=== PATIENT | male | born 1975 | race Caucasian/White ===

== ENCOUNTER 2017-12-09 11:13 | Inpatient (IN) | payer MEDICAID, OTHER ==
--- NOTE | 2017-12-09 11:31 | ED PDOC ---
HPI: Abdomen Time Seen by Provider: 12/09/17 11:30 Chief Complaint (Provider): abd pain History Per: Patient Additional Complaint(s): 42-year-old male with history of gastritis presents to emergency department with persistent abdominal pain. Patient was started on Protonix 2 weeks ago and states he has been compliant with medications but does not feel any better. He states on Thursday he ate a spicy meal and since then has had exacerbation of gastritis symptoms. Patient has nausea with no vomiting and is tolerating liquids and solids. No fever or chills. Patient states he was discharged from [facility] about 2 weeks ago after being diagnosed with pneumonia. He states he has not followed up with PMD due to lapse of insurance. PMD: Dr. Duque Past Medical History Reviewed: Historical Data, Nursing Documentation, Vital Signs Vital Signs: Last Vital Signs Temp 101 F H 12/09/17 14:49 Pulse 106 H 12/09/17 15:07 Resp 20 12/09/17 15:07 BP 116/83 12/09/17 15:07 Pulse Ox 100 12/09/17 15:41 - Medical History PMH: Asthma, Gastritis - Family History Family History: States: No Known Family Hx - Living Arrangements Living Arrangements: With Family - Social History Current smoker - smoking cessation education provided: No Alcohol: None Drugs: Denies - Home Medications Home Medications: Ambulatory Orders Medication Instructions Recorded Albuterol HFA [Ventolin HFA 90 2 puff IH Q6 PRN 12/09/17 mcg/actuation (8 g)] Budesonide/Formoterol Fumarate 2 puff IH Q12 12/09/17 [Symbicort 160-4.5 Mcg Inhaler] Furosemide [Lasix] 20 mg PO DAILY 12/09/17 Montelukast [Singulair] 10 mg PO HS 12/09/17 Pantoprazole Sodium [Protonix] 40 mg PO DAILY 12/09/17 Tiotropium Barry [Spiriva 2 puff IH DAILY 12/09/17 Respimat] - Allergies Allergies/Adverse Reactions: Allergies Allergy/AdvReac Type Severity Reaction Status Date / Time No Known Allergies Allergy Verified 04/24/16 17:23 Review of Systems ROS Statement: Except As Marked, All Systems Reviewed And Found Negative Constitutional: Negative for: Fever, Chills Cardiovascular: Negative for: Chest Pain, Palpitations Respiratory: Negative for: Cough, Shortness of Breath Gastrointestinal: Positive for: Nausea, Abdominal Pain. Negative for: Vomiting , Diarrhea, Constipation, Melena, Hematochezia, Hematemesis, Rectal Pain Physical Exam - Reviewed Nursing Documentation Reviewed: Yes Vital Signs Reviewed: Yes - Physical Exam Appears: Positive for: Well, Non-toxic, No Acute Distress Skin: Negative for: Rash Eye Exam: Positive for: Normal appearance Cardiovascular/Chest: Positive for: Regular Rate, Rhythm Respiratory: Positive for: Normal Breath Sounds Gastrointestinal/Abdominal: Positive for: Tenderness (RUQ, epigastric). Negative for: Distended, Guarding, Rebound Back: Negative for: L CVA Tenderness, R CVA Tenderness Neurologic/Psych: Positive for: Alert, Oriented - Laboratory Results Result Diagrams: 12/09/17 12:38 12/09/17 12:38 - ECG Interpretation Of ECG: Sinus tachycardia 101 bpm, no acute findings, reviewed by PA and ED attending. O2 Sat by Pulse Oximetry: 100 Pulse Ox Interpretation: Normal - Other Rad CXR X-Ray: Interpreted by Me, Viewed By Me, Read By Radiologist X-Ray Interpretation: multifocal PNA Abd US X-Ray: Read By Radiologist X-Ray Interpretation: see below Medical Decision Making Medical Decision Makin42 year old with abdominal pain Plan: CBC CMP Lipase Abd US CXR IVF GI cocktail - maalox, , viscous lidocaine PO pepcid ODT zofran PO tylenol and motrin for fever Flu swab VBG Chest x-ray shows multifocal pneumonia - 1 g IV Rocephin ordered along with 500 mg IV Zithromax Patient meets sepsis criteria. Liver functions elevated, hepatitis panel was added. US: HISTORY: epigastric pain, RUQ pain COMPARISON: None. TECHNIQUE: Sonographic evaluation of the right upper quadrant of the abdomen. FINDINGS: LIVER: Measures 17 cm in length. There is trace increased echogenicity surrounding portal triads diffusely. This can be seen with minimal degrees of the ascending cholangitis which may not have strong clinical symptoms. . Hepatitis can also simulate this. Top normal variants also a consideration. No mass. No intrahepatic bile duct dilatation. GALLBLADDER: No gallstones are noted. No positive Haque sign elicited. 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 No comet tail artifacts are appreciated. And trace pericholecystic fluid sliver between the liver and gallbladder is noted. No more extensive pericholecystic fluid or ascitic fluid noted. COMMON BILE DUCT: Measures 4.8 mm. No stones. No dilatation. PANCREAS: Unremarkable as visualized. No mass. No ductal dilatation. RIGHT KIDNEY: Measures 10.7 x 6.8 x 5.9 cm in length. Normal echogenicity. No calculus, mass, or hydronephrosis. AORTA: No aneurysmal dilatation. IVC: Unremarkable. OTHER FINDINGS: None. IMPRESSION: No gallstones or or positive Haque sign elicited. . 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 Although nonspecific, the mild hyper echogenicity of the intrahepatic portal triads have a differential as detailed above. Case was discussed with family practice resident who will admit patient to telemetry. Patient is aware of and agrees with admission. Disposition - Clinical Impression Clinical Impression: Pneumonia, Sepsis, Elevated liver enzymes - Patient ED Disposition Is Patient to be Admitted: Yes - Disposition Disposition Time: 15:39 Condition: FAIR - Pt Status Changed To: Hospital Disposition Of: Inpatient - Admit Certification Admit to Inpatient:: After my assessment, the patient will require hospitalization for at least two midnights. This is because of the severity of symptoms shown, intensity of services needed, and/or the medical risk in this patient being treated as an outpatient. - POA Present On Arrival: None Results - Lab Results Lab Results: 12/09/17 12/09/17 12/09/17 15:14 12:38 12:38 WBC 13.3 H RBC 4.41 Hgb 13.2 Hct 40.0 MCV 90.8 MCH 30.0 MCHC 33.0 RDW 17.5 H Plt Count 229 MPV 8.0 Neut % (Auto) 40.6 L Lymph % (Auto) 18.8 L [place] % (Auto) 5.4 Eos % (Auto) 34.2 H Baso % (Auto) 1.0 Neut # (Auto) 5.4 Lymph # (Auto) 2.5 [place] # (Auto) 0.7 Eos # (Auto) 4.6 H Baso # (Auto) 0.1 Neutrophils % (Manual) 38 L Band Neutrophils % 1 Lymphocytes % (Manual) 29 Monocytes % (Manual) 4 Eosinophils % (Manual) 28 H Platelet Estimate Normal Anisocytosis (manual) Slight pO2 38 VBG pH 7.43 VBG pCO2 42 VBG HCO3 26.8 VBG Total CO2 29.2 H VBG O2 Sat (Calc) 75.9 H VBG Base Excess 3.2 H VBG Potassium 4.1 Glucose 77 Lactate 1.7 FiO2 21.0 Sodium 136.0 140 Potassium 4.4 Chloride 102.0 99 Carbon Dioxide 29 Anion Gap 16 BUN 16 Creatinine 1.4 Est GFR ( Amer) > 60 Est GFR (Non-Af Amer) 55 Random Glucose 101 Calcium 8.9 Total Bilirubin 0.8 AST 109 H ALT 148 H Alkaline Phosphatase 574 H Total Protein 7.9 Albumin 3.5 Globulin 4.4 H Albumin/Globulin Ratio 0.8 L Lipase 44 Venous Blood Potassium 4.1
[2017-12-09] MEDS ORDERED: Alum-Mag Hydrox-Simethicone Susp (30 mL) PO STA (12:03)
[2017-12-09] MEDS ORDERED: Sodium Chloride 0.9% 1,000 ML IV STA (12:03)
[2017-12-09] MEDS ORDERED: Atrop/Hyos/Scop/PhenoB Elixir PO STA (12:03)
[2017-12-09] MEDS ORDERED: Alum-Mag Hydrox-Simethicone Susp (30 mL) ONE (12:35)
[2017-12-09 13:21] LABS: BASO # 0.1 K/uL (0.0-0.2); EOS # 4.6 K/uL (0.0-0.7); EOS % 34.2 % (0.0-4.0); HEMOGLOBIN 13.2 g/dL (12.0-18.0); LYMPH # 2.5 K/uL (1.0-4.3); LYMPH % 18.8 % (20.0-40.0); MEAN CELL VOLUME 90.8 fl (80.0-94.0); MONO # 0.7 K/uL (0.0-0.8); MONO % 5.4 % (0.0-10.0); NEUT # 5.4 K/uL (1.8-7.0); NEUT % 40.6 % (50.0-75.0); NRBC % 0.1 % (0.0-0.0); PLATELET COUNT 229 K/uL (130-400); RBC 4.41 Mil/uL (4.40-5.90); RED CELL DISTRIBUTION WIDTH 17.5 % (11.5-14.5); WHITE BLOOD COUNT 13.3 K/uL (4.8-10.8)
[2017-12-09 13:37] LABS: ALB/GLOB RATIO 0.8 (1.0-2.1); ALBUMIN 3.5 g/dL (3.5-5.0); ALT/SGPT 148 U/L (21-72); AST/SGOT 109 U/L (17-59); BLOOD UREA NITROGEN 16 mg/dl (9-20); CALCIUM 8.9 mg/dL (8.4-10.2); GFR AFRICAN-AMERICAN > 60; GFR NON-AFRICAN AMERICAN 55; LIPASE 44 U/L (23-300)
--- NOTE | 2017-12-09 13:52 | RAD ---
HISTORY: COMPARISON: 07/27/2011 TECHNIQUE: Chest PA and lateral FINDINGS: LINES AND TUBES: None. LUNG AND PLEURA: The lungs are well inflated. There is multifocal patchy airspace disease in the right upper lobe, left upper lobe, lingula and both lower lobes. HEART AND MEDIASTINUM: The heart is not enlarged. The hilar and mediastinal contours are within normal limits. SKELETAL STRUCTURES: The bony structures are within normal limits for the patient's age. VISUALIZED UPPER ABDOMEN: Normal. OTHER FINDINGS: None. IMPRESSION: Multifocal pneumonia, worse in the left upper lobe. Follow-up to resolution is advised.
[2017-12-09] MEDS ORDERED: Azithromycin 500 MG in Sodium Chloride 0.9% 250 ML IVPB STA (13:56)
--- NOTE | 2017-12-09 14:36 | US ---
HISTORY: epigastric pain, RUQ pain COMPARISON: None. TECHNIQUE: Sonographic evaluation of the right upper quadrant of the abdomen. FINDINGS: LIVER: Measures 17 cm in length. There is trace increased echogenicity surrounding portal triads diffusely. This can be seen with minimal degrees of the ascending cholangitis which may not have strong clinical symptoms. . Hepatitis can also simulate this. Top normal variants also a consideration. No mass. No intrahepatic bile duct dilatation. GALLBLADDER: No gallstones are noted. No positive Haque sign elicited. 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 No comet tail artifacts are appreciated. And trace pericholecystic fluid sliver between the liver and gallbladder is noted. No more extensive pericholecystic fluid or ascitic fluid noted. COMMON BILE DUCT: Measures 4.8 mm. No stones. No dilatation. PANCREAS: Unremarkable as visualized. No mass. No ductal dilatation. RIGHT KIDNEY: Measures 10.7 x 6.8 x 5.9 cm in length. Normal echogenicity. No calculus, mass, or hydronephrosis. AORTA: No aneurysmal dilatation. IVC: Unremarkable. OTHER FINDINGS: None . IMPRESSION: No gallstones or or positive Haque sign elicited. . 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 Although nonspecific, the mild hyper echogenicity of the intrahepatic portal triads have a differential as detailed above. Clinical follow-up recommended
[2017-12-09] MEDS ORDERED: Albuterol-Ipratrop 3 mg / 0.5 (3 ml) UD ONE (14:42)
[2017-12-09] MEDS ORDERED: Albuterol-Ipratrop 3 mg / 0.5 (3 ml) UD INH STA (14:43)
[2017-12-09] MEDS ORDERED: cefTRIAXone (Rocephin) 1 gm Inj ONE (14:48)
[2017-12-09 15:11] LABS: ANISOCYTOSIS SLIGHT; BANDS 1 % (0-2); EOSINOPHIL 28 % (0-7); LYMPHOCYTE 29 % (20-50); MONOCYTE 4 % (0-10); NEUTROPHIL 38 % (42-75); PLATELET ESTIMATE NORMAL (NORMAL); TOTAL CELLS COUNTED 100
[2017-12-09 15:17] LABS: VENOUS BLOOD GAS BASE EXCESS 3.2 mmol/L (0.0-2.0); VENOUS BLOOD GAS PCO2 42 mmHg (40-60); VENOUS BLOOD GAS PO2 38 mm/Hg (30-55); VENOUS BLOOD PH 7.43 (7.32-7.43)
[2017-12-09] MEDS ORDERED: Sodium Chloride 0.9% 1,000 ML IV SCH (16:15)
[2017-12-09] MEDS ORDERED: Albuterol 0.083% Inhal Sol (2.5 mg/3 mL) UD INH PRN (16:36)
--- NOTE | 2017-12-09 16:42 | CP.PCM.HP ---
History of Present Illness - History of Present Illness History of Present Illness: Joaquin is 42-year-old male with PMH of Asthma and gastritis presents to emergency department with persistent abdominal pain since 4 days ago. He states on Thursday he ate a spicy meal and since then has had exacerbation of gastritis symptoms. Patient has nausea with no vomiting and is tolerating liquids and solids. Patient was started on Protonix 2 weeks ago and states he has been compliant with medications but does not feel any better. Patient states he was discharged from [facility] about 2 weeks ago after being diagnosed with pneumonia. He reports had fever yesterday and mild non productive cough. As pper patient he finished the abx treatment with Moxifloxacin x 10 days. Otherwise he denies Vomiting, Hemoptysis, SOB, Diarrhea, Constipation, Melena, Hematochezia, Hematemesis. No urinary symptoms. He states he has not followed up with PMD due to lapse of insurance. As note patient states that on August/2017 he underwent in a Thermoplasty as Asthma treatment. ED course: VS: T 101, BP 106/73, HR 57, RR 16, sat 100% RA PE: Resp normal breath sounds, CVS: RRR, S1 S2, ABD: RUQ tenderness Labs: CBC wbc 13.3, CMP wnl except AST/ALT 109/148, ALP 574 VBG: lactate 1.7, lipase normal CXR: multifocal pneumonia worse in L lung. ABD US: trace increased echogenicity surrounding portal triads diffusely. This can be seen with minimal degrees of the ascending cholangitis which may not have strong clinical symptoms. No intrahepatic bile duct dilatation. No gallstones. Meds: famotidine 20 PO once, Ceftriaxone 1g IV once, Azithromycin 500mg IV once. NS 0.9% boluses x3 PMD: none PMH: Asthma, Vitiligo PSH: none FMH: denies Meds: Budesonide, albuterol, singulair Moxifl, lasix, Prednisone, ASA (finished) NKDA SH: denies tobacco, illicit drugs. Etoh socially. 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 Present on Admission - Present on Admission Any Indicators Present on Admission: No Review of Systems - Review of Systems All systems: reviewed and no additional remarkable complaints except (as per HPI ) Past Patient History - Past Social History Alcohol: None Drugs: Denies - PULMONARY Hx Asthma: Yes - GASTROINTESTINAL Hx Gastritis: Yes - PSYCHIATRIC Hx Substance Use: No - SURGICAL HISTORY Hx Surgeries: Yes Other/Comment: leg surgery x2 Meds Allergies/Adverse Reactions: Allergies Allergy/AdvReac Type Severity Reaction Status Date / Time No Known Allergies Allergy Verified 04/24/16 17:23 Physical Exam - Constitutional Appears: Well, No Acute Distress - Head Exam Head Exam: NORMAL INSPECTION - Eye Exam Eye Exam: EOMI, PERRL - ENT Exam ENT Exam: Mucous Membranes Moist - Respiratory Exam Respiratory Exam: Wheezes, NORMAL BREATHING PATTERN. absent: Accessory Muscle Use - Cardiovascular Exam Cardiovascular Exam: Tachycardia, REGULAR RHYTHM, +S1, +S2. absent: Systolic Murmur - GI/Abdominal Exam GI & Abdominal Exam: Normal Bowel Sounds, Soft. absent: Distended Additional comments: Mild tender on epigastrium - Extremities Exam Extremities exam: Negative for: calf tenderness - Neurological Exam Neurological exam: CN II-XII Intact, Oriented x3 - Skin Additional comments: vitiligo Results - Vital Signs Recent Vital Signs: Last Vital Signs Temp 101 F H 12/09/17 14:49 Pulse 106 H 12/09/17 15:07 Resp 20 12/09/17 15:07 BP 116/83 12/09/17 15:07 Pulse Ox 100 12/09/17 15:41 - Labs Result Diagrams: 12/09/17 12:38 12/09/17 12:38 Labs: Laboratory Results - last 24 hr 12/09/17 12/09/17 12/09/17 12:38 12:38 15:14 WBC 13.3 H RBC 4.41 Hgb 13.2 Hct 40.0 MCV 90.8 MCH 30.0 MCHC 33.0 RDW 17.5 H Plt Count 229 MPV 8.0 Neut % (Auto) 40.6 L Lymph % (Auto) 18.8 L [place] % (Auto) 5.4 Eos % (Auto) 34.2 H Baso % (Auto) 1.0 Neut # (Auto) 5.4 Lymph # (Auto) 2.5 [place] # (Auto) 0.7 Eos # (Auto) 4.6 H Baso # (Auto) 0.1 Neutrophils % (Manual) 38 L Band Neutrophils % 1 Lymphocytes % (Manual) 29 Monocytes % (Manual) 4 Eosinophils % (Manual) 28 H Platelet Estimate Normal Anisocytosis (manual) Slight pO2 38 VBG pH 7.43 VBG pCO2 42 VBG HCO3 26.8 VBG Total CO2 29.2 H VBG O2 Sat (Calc) 75.9 H VBG Base Excess 3.2 H VBG Potassium 4.1 Glucose 77 Lactate 1.7 FiO2 21.0 Sodium 140 136.0 Potassium 4.4 Chloride 99 102.0 Carbon Dioxide 29 Anion Gap 16 BUN 16 Creatinine 1.4 Est GFR ( Amer) > 60 Est GFR (Non-Af Amer) 55 Random Glucose 101 Calcium 8.9 Total Bilirubin 0.8 AST 109 H ALT 148 H Alkaline Phosphatase 574 H Total Protein 7.9 Albumin 3.5 Globulin 4.4 H Albumin/Globulin Ratio 0.8 L Lipase 44 Venous Blood Potassium 4.1 Assessment & Plan - Assessment and Plan (Free Text) Assessment: 42 yo M patient with PMH of Asthma and gastritis and pneumonia 2 months ago admitted due to Multifocal pneumonia, acute gastritis. Plan: 1- Multifocal Pneumonia: - admit to telemetry - CXR: multifocal pneumonia worse in left lung. - s/p ceftrixone 1 g IV once - s/p azithromyn 500 IV once - Start zosyn 4.5 mg IV Q6H - Tylenol prn for fever - Pulmonology consult kemal Hernandez. - CBC wbc 13.3, CMP wnl except. - VBG wnl, lactate 1.7 - f/u CBC/CMP/Procalcitonin in AM - f/u Mycoplasma IgM, Legionela urine - F/u blood and sputum culture - F/U chest CT. 2- Gastritis - likely secondary previous abx use and diet - lipase normal - regular diet - start protonix 40mg PO 3- Wheezing - PMH of Asthma - neg sob - Duoneb Q4H ruddy - will monitor. 4- Transaminitis - AST/ALT 109/148, ALP 574 - ABD US: trace increased echogenicity surrounding portal triads diffusely. This can be seen with minimal degrees of the ascending cholangitis which may not have strong clinical symptoms. No intrahepatic bile duct dilatation. No gallstones. - Asymptomatic - f/ hepatitis panel - will monitor 5- DVT prophylaxis - SCD
[2017-12-09] MEDS ORDERED: Sodium Chloride 3% for Inhalation 4 ML VIAL.NEB IH PRN (16:43)
--- NOTE | 2017-12-09 18:11 | CT ---
PROCEDURE: CT Chest without contrast HISTORY: Multifocal pneumonia COMPARISON: Plain radiographs performed earlier the same day. TECHNIQUE: Contiguous axial images were obtained through the chest without intravenous contrast enhancement. Sagittal and coronal reconstructions were performed. Radiation dose (DLP): 285.81 mGy-cm. This CT exam was performed using one or more of the following dose reduction techniques: Automated exposure control, adjustment of the mA and/or kV according to patient size, and/or use of iterative reconstruction technique. FINDINGS: LUNGS: There is multifocal airspace disease in both lungs, more confluent in the left upper lobe. There are also scattered parenchymal and subpleural nodules in both lungs. There is mild diffuse bronchial wall thickening. No evidence of bronchiectasis. There are no endobronchial lesions. MEDIASTINUM: There is abnormal soft tissue in the left hilum. No enlarged mediastinal lymph nodes. The aorta is normal in caliber. The heart is normal in size. No pericardial effusion. PLEURA: No pleural fluid. No pneumothorax. BONES: No fracture. No destructive lesion. UPPER ABDOMEN: Grossly unremarkable. OTHER FINDINGS: None. IMPRESSION: Findings are most compatible with multifocal pneumonia, worse in the left upper lobe. Also noted is soft tissue in the left hilum which may represent reactive hilar lymphadenopathy however hilar mass and postobstructive pneumonia cannot be entirely excluded on noncontrast CT examination. Follow-up after medical management is recommended to ensure complete resolution.
[2017-12-09] MEDS: Sodium Chloride 0.9% 1,000 ML IV SCH ×2 (18:33→18:34)
[2017-12-09] MEDS ORDERED: Docusate-Senna 50 mg-8.6 mg Tab PO ONE (22:00)
[2017-12-10] MEDS ORDERED: DiphenhydrAMINE 50 mg/ml Inj IVP ONE (00:43)
[2017-12-10] MEDS: Albuterol 0.083% Inhal Sol (2.5 mg/3 mL) UD INH PRN (01:03)
[2017-12-10] MEDS: Sodium Chloride 0.9% 1,000 ML IV SCH ×5 (01:08→16:35)
[2017-12-10] MEDS: Piperacillin/Tazobact 4.5 GM in Sodium Chloride 0.9% 100 ML IVPB SCH ×4 (04:14→22:02)
[2017-12-10] MEDS: Albuterol-Ipratrop 3 mg / 0.5 (3 ml) UD INH SCH ×5 (07:10→19:45)
[2017-12-10] MEDS: Pantoprazole 40 mg EC Tab PO SCH (09:00)
--- NOTE | 2017-12-10 09:16 | CP.PCM.PN ---
Subjective - Date & Time of Evaluation Date of Evaluation: 12/10/17 Time of Evaluation: 07:10 - Subjective Subjective: Patient seen and examined this morning at bedside, no acute overnight events, he reports feeling better, no abdominal pain at this time. Afebrile since admission. Tolerating PO well. Denies sob, cough, chest pain, palpitations, chills, vomiting. No urinary symptoms, normal BM. Objective - Vital Signs/Intake and Output Vital Signs (last 24 hours): Temp Pulse Resp BP Pulse Ox 98 F 104 H 20 115/73 93 L 12/10/17 08:00 12/10/17 08:00 12/10/17 08:00 12/10/17 08:00 12/10/17 08:00 - Medications Medications: Current Medications Acetaminophen (Tylenol 325mg Tab) 650 mg PO Q6 PRN PRN Reason: Fever >100.4 F Albuterol Sulfate (Albuterol 0.083% Inhal Cassidy (2.5 Mg/3 Ml) Ud) 2.5 mg INH RQ6 PRN PRN Reason: Shortness of Breath Last Admin: 12/10/17 01:03 Dose: 2.5 mg Albuterol/Ipratropium (Duoneb 3 Mg/0.5 Mg (3 Ml) Ud) 3 ml INH RQID RUDDY Last Admin: 12/10/17 07:10 Dose: 3 ml Piperacillin Sod/Tazobactam (Sod 4.5 gm/ Sodium Chloride) 100 mls @ 100 mls/hr IVPB Q6 RUDDY PRN Reason: Protocol Last Admin: 12/10/17 09:01 Dose: 100 mls/hr Sodium Chloride (Sodium Chloride 0.9%) 1,000 mls @ 1,000 mls/hr IV .Q1H [facility] Stop: 12/10/17 17:45 Last Admin: 12/09/17 18:34 Dose: Not Given Sodium Chloride (Sodium Chloride 0.9%) 1,000 mls @ 200 mls/hr IV .Q5H [facility] Stop: 12/10/17 17:46 Last Admin: 12/10/17 06:07 Dose: 200 mls/hr Ketorolac Tromethamine (Toradol) 30 mg IVP Q6 PRN PRN Reason: Pain, moderate (4-7) Last Admin: 04/05/18 05:47 Dose: 30 mg Pantoprazole Sodium (Protonix Ec Tab) 40 mg PO DAILY [facility] Last Admin: 12/10/17 09:00 Dose: 40 mg - Labs Labs: 12/09/17 12:38 12/09/17 12:38 - Constitutional Appears: Well, No Acute Distress - Head Exam Head Exam: NORMAL INSPECTION - Eye Exam Eye Exam: EOMI, PERRL - Respiratory Exam Respiratory Exam: Wheezes, NORMAL BREATHING PATTERN. absent: Accessory Muscle Use, Respiratory Distress - Cardiovascular Exam Cardiovascular Exam: Tachycardia, REGULAR RHYTHM, +S1, +S2. absent: Murmur - GI/Abdominal Exam GI & Abdominal Exam: Soft, Normal Bowel Sounds. absent: Distended, Tenderness - Extremities Exam Extremities Exam: absent: Calf Tenderness - Neurological Exam Neurological Exam: Awake, CN II-XII Intact, Oriented x3 - Skin Skin Exam: Dry, Warm Assessment and Plan - Assessment and Plan (Free Text) Assessment: 42 yo M patient with PMH of Asthma and gastritis and pneumonia 2 months ago admitted due to Multifocal pneumonia, acute gastritis. Plan: 1- Multifocal Pneumonia: - CXR: multifocal pneumonia worse in left lung. - Chest CT: multifocal pneumonia worse in left lung, soft tissue in the left hilum may represent reactive hilar LAD, recommd f/u. - Start zosyn 4.5 mg IV Q6H - Tylenol prn for fever - Pulmonology consult Dr Esposito, placed. - ID consult Dr Swain appreciated - CBC wbc 13.3, CMP wnl - f/u CBC/CMP/Procalcitonin pending - f/u Mycoplasma IgM, Legionela urine pending - F/u blood and sputum culture pending 2- Gastritis - likely secondary recent abx use - regular diet - protonix 40mg PO daily 3- Wheezing - PMH of Asthma - neg sob - Duoneb Q4H ruddy - will monitor. 4- Transaminitis - AST/ALT 109/148, ALP 574 - ABD US: trace increased echogenicity surrounding portal triads diffusely. This can be seen with minimal degrees of the ascending cholangitis which may not have strong clinical symptoms. No intrahepatic bile duct dilatation. No gallstones. - Asymptomatic - f/ hepatitis panel pending - will monitor 5- DVT prophylaxis - SCD
[2017-12-10] MEDS: Lidocaine 5% Patch TD SCH (11:15)
--- NOTE | 2017-12-10 12:14 | CP.PCM.CON ---
History of Present Illness - History of Present Illness History of Present Illness: Infectious Disease Consultation Note- asked to see this patient at the request of family practice team/Dr.Pierre Salas for pneumonia. HPI- Patient is a 42-year-old male with PMH of Asthma and gastritis presented to ED with persistent abdominal pain since 4 days ago. He states on Thursday he ate a spicy meal and since then has had exacerbation of gastritis symptoms. Patient had nausea with no vomiting and is tolerating liquids and solids. Patient was started on Protonix 2 weeks ago and states he has been compliant with medications but does not feel any better. Patient states he was discharged from [facility] about 2 weeks ago after being diagnosed with pneumonia. He reports had fever day before admission and mild non productive cough. As per patient he finished the abx treatment with Moxifloxacin x 10 days. he denies any hemoptysis, denies any night swetas or weight loss. he deoes c/o chest congestion and nasal congestion but states is better than yesterday. he also does c/o chills at times. CXR: multifocal pneumonia worse in L lung. Meds: famotidine 20 PO once, Ceftriaxone 1g IV once, Azithromycin 500mg IV once. NS 0.9% boluses x3 PMD: none PMH: Asthma, PSH: none FMH: denies Meds: Budesonide, albuterol, singulair Moxifl, lasix, Prednisone, ASA (finished) Allergy-NKDA SH: denies tobacco, illicit drugs. Etoh socially. 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 Review of Systems - Review of Systems Review of Systems: ROS- + cough and chest congestion, no sob, + gastritis pain, denies any TEJEDA, + chills , denies any chest pain, denies any nausea or vomiting, states has some gastritis pain, denies any diarrhea recent hospitalization at [place] sick contact- friend's son denies any recent travel Past Patient History - Past Medical History & Family History Past Medical History?: Yes - Past Social History Smoking Status: Never Smoked Drugs: Denies Home Situation {Lives}: With Family - CARDIAC Hx Cardiac Disorders: No - PULMONARY Hx Respiratory Disorders: Yes Hx Asthma: Yes Hx Pneumonia: Yes - NEUROLOGICAL Hx Neurological Disorder: No - HEENT Hx HEENT Problems: No - RENAL Hx Chronic Kidney Disease: No - ENDOCRINE/METABOLIC Hx Endocrine Disorders: No - HEMATOLOGICAL/ONCOLOGICAL Hx Blood Disorders: No - INTEGUMENTARY Hx Dermatological Problems: No - MUSCULOSKELETAL/RHEUMATOLOGICAL Hx Musculoskeletal Disorders: No Hx Falls: No - GASTROINTESTINAL Hx Gastritis: Yes - GENITOURINARY/GYNECOLOGICAL Hx Genitourinary Disorders: No - PSYCHIATRIC Hx Psychophysiologic Disorder: No Hx Substance Use: No - SURGICAL HISTORY Hx Surgeries: Yes Other/Comment: leg surgery x2, right leg abscess removal - ANESTHESIA Hx Anesthesia: Yes Hx Anesthesia Reactions: No Meds Allergies/Adverse Reactions: Allergies Allergy/AdvReac Type Severity Reaction Status Date / Time No Known Allergies Allergy Verified 04/24/16 17:23 - Medications Medications: Current Medications Acetaminophen (Tylenol 325mg Tab) 650 mg PO Q6 PRN PRN Reason: Fever >100.4 F Albuterol Sulfate (Albuterol 0.083% Inhal Cassidy (2.5 Mg/3 Ml) Ud) 2.5 mg INH RQ6 PRN PRN Reason: Shortness of Breath Last Admin: 12/10/17 01:03 Dose: 2.5 mg Albuterol/Ipratropium (Duoneb 3 Mg/0.5 Mg (3 Ml) Ud) 3 ml INH RQID DARIEL Last Admin: 12/10/17 11:19 Dose: 3 ml Piperacillin Sod/Tazobactam (Sod 4.5 gm/ Sodium Chloride) 100 mls @ 100 mls/hr IVPB Q6 DARIEL PRN Reason: Protocol Last Admin: 12/10/17 09:01 Dose: 100 mls/hr Sodium Chloride (Sodium Chloride 0.9%) 1,000 mls @ 1,000 mls/hr IV .Q1H DARIEL Stop: 12/10/17 17:45 Last Admin: 12/10/17 07:45 Dose: Not Given Sodium Chloride (Sodium Chloride 0.9%) 1,000 mls @ 200 mls/hr IV .Q5H DARIEL Stop: 12/10/17 17:46 Last Admin: 12/10/17 11:14 Dose: 200 mls/hr Vancomycin HCl 1 gm/ Sodium (Chloride) 250 mls @ 166.667 mls/hr IVPB Q12H DARIEL PRN Reason: Protocol Ketorolac Tromethamine (Toradol) 30 mg IVP Q6 PRN PRN Reason: Pain, moderate (4-7) Last Admin: 12/10/17 05:47 Dose: 30 mg Lidocaine (Lidoderm) 1 ea TD DAILY [facility] Last Admin: 12/10/17 11:15 Dose: 1 ea Pantoprazole Sodium (Protonix Ec Tab) 40 mg PO DAILY [facility] Last Admin: 12/10/17 09:00 Dose: 40 mg Pantoprazole Sodium (Protonix Ec Tab) 40 mg PO DAILY [facility] Fluticasone/Salmeterol (Advair Diskus 250/50) 1 puff IH Q12 [facility] Physical Exam - Constitutional Appears: No Acute Distress - Head Exam Head Exam: ATRAUMATIC - Eye Exam Eye Exam: EOMI - ENT Exam ENT Exam: Normal Oropharynx - Neck Exam Neck exam: Positive for: Full Rom - Respiratory Exam Respiratory Exam: NORMAL BREATHING PATTERN Additional comments: has scattered coarse breath sounds b/l no wheezing - Cardiovascular Exam Cardiovascular Exam: RRR, +S1, +S2 - GI/Abdominal Exam GI & Abdominal Exam: Normal Bowel Sounds, Soft Additional comments: NT, ND - Extremities Exam Extremities exam: Positive for: normal inspection - Neurological Exam Neurological exam: Alert, Oriented x3 Results - Vital Signs Recent Vital Signs: Last Vital Signs Temp 98 F 12/10/17 09:00 Pulse 104 H 12/10/17 09:00 Resp 20 12/10/17 09:00 BP 115/73 12/10/17 09:00 Pulse Ox 93 L 12/10/17 09:00 - Labs Result Diagrams: 12/09/17 12:38 12/09/17 12:38 Labs: Laboratory Results - last 24 hr 12/09/17 12/09/17 12/09/17 12:38 12:38 15:14 WBC 13.3 H RBC 4.41 Hgb 13.2 Hct 40.0 MCV 90.8 MCH 30.0 MCHC 33.0 RDW 17.5 H Plt Count 229 MPV 8.0 Neut % (Auto) 40.6 L Lymph % (Auto) 18.8 L [place] % (Auto) 5.4 Eos % (Auto) 34.2 H Baso % (Auto) 1.0 Neut # (Auto) 5.4 Lymph # (Auto) 2.5 [place] # (Auto) 0.7 Eos # (Auto) 4.6 H Baso # (Auto) 0.1 Neutrophils % (Manual) 38 L Band Neutrophils % 1 Lymphocytes % (Manual) 29 Monocytes % (Manual) 4 Eosinophils % (Manual) 28 H Platelet Estimate Normal Anisocytosis (manual) Slight pO2 38 VBG pH 7.43 VBG pCO2 42 VBG HCO3 26.8 VBG Total CO2 29.2 H VBG O2 Sat (Calc) 75.9 H VBG Base Excess 3.2 H VBG Potassium 4.1 Glucose 77 Lactate 1.7 FiO2 21.0 Sodium 140 136.0 Potassium 4.4 Chloride 99 102.0 Carbon Dioxide 29 Anion Gap 16 BUN 16 Creatinine 1.4 Est GFR ( Amer) > 60 Est GFR (Non-Af Amer) 55 Random Glucose 101 Calcium 8.9 Total Bilirubin 0.8 AST 109 H ALT 148 H Alkaline Phosphatase 574 H Total Protein 7.9 Albumin 3.5 Globulin 4.4 H Albumin/Globulin Ratio 0.8 L Lipase 44 Venous Blood Potassium 4.1 Influenza Typ A,B (EIA) 12/09/17 15:41 WBC RBC Hgb Hct MCV MCH MCHC RDW Plt Count MPV Neut % (Auto) Lymph % (Auto) [place] % (Auto) Eos % (Auto) Baso % (Auto) Neut # (Auto) Lymph # (Auto) [place] # (Auto) Eos # (Auto) Baso # (Auto) Neutrophils % (Manual) Band Neutrophils % Lymphocytes % (Manual) Monocytes % (Manual) Eosinophils % (Manual) Platelet Estimate Anisocytosis (manual) pO2 VBG pH VBG pCO2 VBG HCO3 VBG Total CO2 VBG O2 Sat (Calc) VBG Base Excess VBG Potassium Glucose Lactate FiO2 Sodium Potassium Chloride Carbon Dioxide Anion Gap BUN Creatinine Est GFR ( Amer) Est GFR (Non-Af Amer) Random Glucose Calcium Total Bilirubin AST ALT Alkaline Phosphatase Total Protein Albumin Globulin Albumin/Globulin Ratio Lipase Venous Blood Potassium Influenza Typ A,B (EIA) Negative for flu a/b Laboratory Results - last 72 hr 12/09/17 12/09/17 12/09/17 12:38 12:38 15:01 WBC 13.3 H RBC 4.41 Hgb 13.2 Hct 40.0 MCV 90.8 MCH 30.0 MCHC 33.0 RDW 17.5 H Plt Count 229 MPV 8.0 Neut % (Auto) 40.6 L Lymph % (Auto) 18.8 L [place] % (Auto) 5.4 Eos % (Auto) 34.2 H Baso % (Auto) 1.0 Neut # (Auto) 5.4 Lymph # (Auto) 2.5 [place] # (Auto) 0.7 Eos # (Auto) 4.6 H Baso # (Auto) 0.1 Neutrophils % (Manual) 38 L Band Neutrophils % 1 Lymphocytes % (Manual) 29 Monocytes % (Manual) 4 Eosinophils % (Manual) 28 H Platelet Estimate Normal Anisocytosis (manual) Slight pO2 VBG pH VBG pCO2 VBG HCO3 VBG Total CO2 VBG O2 Sat (Calc) VBG Base Excess VBG Potassium Glucose Lactate FiO2 Sodium 140 Potassium 4.4 Chloride 99 Carbon Dioxide 29 Anion Gap 16 BUN 16 Creatinine 1.4 Est GFR ( Amer) > 60 Est GFR (Non-Af Amer) 55 Random Glucose 101 Calcium 8.9 Total Bilirubin 0.8 AST 109 H ALT 148 H Alkaline Phosphatase 574 H Total Protein 7.9 Albumin 3.5 Globulin 4.4 H Albumin/Globulin Ratio 0.8 L Lipase 44 Procalcitonin Venous Blood Potassium Hepatitis A IgM Ab Negative Hep Bs Antigen Negative Hep B Core IgM Ab Negative Hepatitis C Antibody Negative Influenza Typ A,B (EIA) 12/09/17 12/09/17 12/09/17 15:14 15:41 22:07 WBC RBC Hgb Hct MCV MCH MCHC RDW Plt Count MPV Neut % (Auto) Lymph % (Auto) [place] % (Auto) Eos % (Auto) Baso % (Auto) Neut # (Auto) Lymph # (Auto) [place] # (Auto) Eos # (Auto) Baso # (Auto) Neutrophils % (Manual) Band Neutrophils % Lymphocytes % (Manual) Monocytes % (Manual) Eosinophils % (Manual) Platelet Estimate Anisocytosis (manual) pO2 38 VBG pH 7.43 VBG pCO2 42 VBG HCO3 26.8 VBG Total CO2 29.2 H VBG O2 Sat (Calc) 75.9 H VBG Base Excess 3.2 H VBG Potassium 4.1 Glucose 77 Lactate 1.7 FiO2 21.0 Sodium 136.0 Potassium Chloride 102.0 Carbon Dioxide Anion Gap BUN Creatinine Est GFR ( Amer) Est GFR (Non-Af Amer) Random Glucose Calcium Total Bilirubin AST ALT Alkaline Phosphatase Total Protein Albumin Globulin Albumin/Globulin Ratio Lipase Procalcitonin 0.40 Venous Blood Potassium 4.1 Hepatitis A IgM Ab Hep Bs Antigen Hep B Core IgM Ab Hepatitis C Antibody Influenza Typ A,B (EIA) Negative for flu a/b Accession No. : [id number] Patient Name / ID : ANTHONY FERNANDEZ / [id number] Exam Date : 12/09/2017 17:15:26 ( Approved ) Study Comment : Sex / Age : M / 42Y Creator : Sonya Leyva MD Dictator : Sonya Leyva MD Deck Supervisor : Licensed Sales Producer : Sonya Leyva MD Approver2 : Report Date : 12/09/2017 18:10:20 My Comment : PROCEDURE: CT Chest without contrast HISTORY: Multifocal pneumonia COMPARISON: Plain radiographs performed earlier the same day. TECHNIQUE: Contiguous axial images were obtained through the chest without intravenous contrast enhancement. Sagittal and coronal reconstructions were performed. Radiation dose (DLP): 285.81 mGy-cm. This CT exam was performed using one or more of the following dose reduction techniques: Automated exposure control, adjustment of the mA and/or kV according to patient size, and/or use of iterative reconstruction technique. FINDINGS: LUNGS: There is multifocal airspace disease in both lungs, more confluent in the left upper lobe. There are also scattered parenchymal and subpleural nodules in both lungs. There is mild diffuse bronchial wall thickening. No evidence of bronchiectasis. There are no endobronchial lesions. MEDIASTINUM: There is abnormal soft tissue in the left hilum. No enlarged mediastinal lymph nodes. The aorta is normal in caliber. The heart is normal in size. No pericardial effusion. PLEURA: No pleural fluid. No pneumothorax. BONES: No fracture. No destructive lesion. UPPER ABDOMEN: Grossly unremarkable. OTHER FINDINGS: None. IMPRESSION: Findings are most compatible with multifocal pneumonia, worse in the left upper lobe. Also noted is soft tissue in the left hilum which may represent reactive hilar lymphadenopathy however hilar mass and postobstructive pneumonia cannot be entirely excluded on noncontrast CT examination. Follow-up after medical management is recommended to ensure complete resolution. Assessment & Plan (1) Pneumonia Status: Acute (2) Elevated liver enzymes Status: Acute - Assessment and Plan (Free Text) Assessment: A/p- 42 year old male admitted with multifocal pneumonia and also found to have elevated liver enzymes. mild leukocytosis but mostly eos perhaps allergic reposnse to a medication he was given recently. fever on admission elevated liver enzymes chest ct report- multifocal pneumonia urine legionella AG- negative plan- agree with IV zosyn and vanco to cover for HAP and nosocomial infections. advise to also add zithromax to cover for atypicals. check mycoplasma serology. hepatitis panel was all negative. check repeat LFTs.could be allergic reaction as a result of recent medication specially in light of elevated eosinophils on diff. may need abd CT for better evaluation. check sputum cx. check blood cx x 2. advised to also use incentive spirometry. All above d/w patient and he verbalizes full understanding of all above and agrees with above plan of care. Thank you for allowing me to take part in the care of this patient.
[2017-12-10 12:41] LABS: HEPATITIS B SURFACE AG Negative (NEGATIVE)
[2017-12-10 12:47] LABS: HEPATITIS A IGM NEGATIVE (NEGATIVE); HEPATITIS B CORE AB NEGATIVE (NEGATIVE)
[2017-12-10 12:58] LABS: HEPATITIS C ANTIBODY NEGATIVE (NEGATIVE)
[2017-12-10] MEDS: Fluticasone-Salmeterol 250-50mcg Diskus IH SCH (22:01)
[2017-12-10] MEDS ORDERED: DiphenhydrAMINE 12.5 mg/5 ml LIQ UD (5 ml) PO ONE (22:15)
--- NOTE | 2017-12-10 22:44 | CP.PCM.CON ---
History of Present Illness - History of Present Illness History of Present Illness: Called to evaluate this patient that presented with sever Abdo pain. Consequently was found to have multifocal PNa. Hx of asthma. Never smoker. NKDA Fam Hx negative. S/ No Pulmonary Sx. VS Stable O2 Sat was 98% on Room Air Head: Neg Adeno Pos Viviana Heart: Ns1s2, RRR, neg m Lungs: Clear to A & P Abdo: s, nt, pos bs Ext: no c,c,e Neuro: Grossly non focal a/p PNA in which films are lagging behind clinical improvement. B. Asthma. Cont supp O2 (Patients O2 sat was fine on room air.) Cont ANGELY prn. Consider adding a ICS/LABA inhaler. Cont ABX. ID Consult. HIV Testing. No need for steroids since patient is not wheezing. Would get serial Peak Flows. PUD and DVT Px. Signing out of case; issues seem to be more of Abdominal since patient states his abdo pain was 9/10. Can be f/u as out patient in the [facility]. Past Patient History - Past Medical History & Family History Past Medical History?: Yes - Past Social History Smoking Status: Never Smoked Drugs: Denies Home Situation {Lives}: With Family - CARDIAC Hx Cardiac Disorders: No - PULMONARY Hx Respiratory Disorders: Yes Hx Asthma: Yes Hx Pneumonia: Yes - NEUROLOGICAL Hx Neurological Disorder: No - HEENT Hx HEENT Problems: No - RENAL Hx Chronic Kidney Disease: No - ENDOCRINE/METABOLIC Hx Endocrine Disorders: No - HEMATOLOGICAL/ONCOLOGICAL Hx Blood Disorders: No - INTEGUMENTARY Hx Dermatological Problems: No - MUSCULOSKELETAL/RHEUMATOLOGICAL Hx Musculoskeletal Disorders: No Hx Falls: No - GASTROINTESTINAL Hx Gastritis: Yes - GENITOURINARY/GYNECOLOGICAL Hx Genitourinary Disorders: No - PSYCHIATRIC Hx Psychophysiologic Disorder: No Hx Substance Use: No - SURGICAL HISTORY Hx Surgeries: Yes Other/Comment: leg surgery x2, right leg abscess removal - ANESTHESIA Hx Anesthesia: Yes Hx Anesthesia Reactions: No Meds Allergies/Adverse Reactions: Allergies Allergy/AdvReac Type Severity Reaction Status Date / Time No Known Allergies Allergy Verified 04/24/16 17:23 - Medications Medications: Current Medications Acetaminophen (Tylenol 325mg Tab) 650 mg PO Q6 PRN PRN Reason: Fever >100.4 F Last Admin: 12/10/17 21:01 Dose: 650 mg Albuterol Sulfate (Albuterol 0.083% Inhal Cassidy (2.5 Mg/3 Ml) Ud) 2.5 mg INH RQ6 PRN PRN Reason: Shortness of Breath Last Admin: 12/10/17 01:03 Dose: 2.5 mg Albuterol/Ipratropium (Duoneb 3 Mg/0.5 Mg (3 Ml) Ud) 3 ml INH RQID DARIEL Last Admin: 12/10/17 19:45 Dose: 3 ml Famotidine (Pepcid) 20 mg IVP ONCE ONE Stop: 12/11/17 22:12 Piperacillin Sod/Tazobactam (Sod 4.5 gm/ Sodium Chloride) 100 mls @ 100 mls/hr IVPB Q6 DARIEL PRN Reason: Protocol Last Admin: 12/10/17 22:02 Dose: 100 mls/hr Vancomycin HCl 1 gm/ Sodium (Chloride) 250 mls @ 166.667 mls/hr IVPB Q12H DARIEL PRN Reason: Protocol Last Admin: 12/10/17 13:17 Dose: 166.667 mls/hr Ketorolac Tromethamine (Toradol) 30 mg IVP Q6 PRN PRN Reason: Pain, moderate (4-7) Last Admin: 12/10/17 21:11 Dose: 30 mg Lidocaine (Lidoderm) 1 ea TD DAILY [facility] Last Admin: 12/10/17 11:15 Dose: 1 ea Pantoprazole Sodium (Protonix Ec Tab) 40 mg PO DAILY [facility] Last Admin: 12/10/17 09:00 Dose: 40 mg Pantoprazole Sodium (Protonix Ec Tab) 40 mg PO DAILY [facility] Fluticasone/Salmeterol (Advair Diskus 250/50) 1 puff IH Q12 [facility] Last Admin: 12/10/17 22:01 Dose: 1 puff Results - Vital Signs Recent Vital Signs: Last Vital Signs Temp 102.8 F H 12/10/17 21:01 Pulse 120 H 12/10/17 18:59 Resp 18 12/10/17 18:59 BP 112/70 12/10/17 18:59 Pulse Ox 94 L 12/10/17 18:59 - Labs Result Diagrams: 12/09/17 12:38 12/09/17 12:38 Labs: Laboratory Results - last 24 hr 12/09/17 12/09/17 12/09/17 10:57 15:01 22:07 Procalcitonin 0.40 Hepatitis A IgM Ab Negative Hep Bs Antigen Negative Hep B Core IgM Ab Negative Hepatitis C Antibody Negative Ur L.pneumophila Ag Negative
[2017-12-11] MEDS: Piperacillin/Tazobact 4.5 GM in Sodium Chloride 0.9% 100 ML IVPB SCH ×4 (04:09→18:05)
[2017-12-11] MEDS ORDERED: Lidocaine 5% Patch TD ONE (05:33)
[2017-12-11 05:54] LABS: BASO # 0.1 K/uL (0.0-0.2); BASO % 0.4 % (0.0-2.0); EOS # 6.3 K/uL (0.0-0.7); HEMOGLOBIN 11.6 g/dL (12.0-18.0); LYMPH # 2.4 K/uL (1.0-4.3); MEAN CELL VOLUME 91.6 fl (80.0-94.0); MEAN CORPUSCULAR HEMOGLOBIN 29.7 pg (27.0-31.0); MEAN CORPUSCULAR HGB CONC 32.4 g/dL (33.0-37.0); MEAN PLATELET VOLUME 8.4 fl (7.2-11.7); MONO # 0.9 K/uL (0.0-0.8); MONO % 5.8 % (0.0-10.0); NEUT # 5.4 K/uL (1.8-7.0); NEUT % 35.8 % (50.0-75.0); PLATELET COUNT 143 K/uL (130-400); RBC 3.91 Mil/uL (4.40-5.90); RED CELL DISTRIBUTION WIDTH 16.9 % (11.5-14.5)
[2017-12-11 06:21] LABS: ALB/GLOB RATIO 0.7 (1.0-2.1); ALBUMIN 2.6 g/dL (3.5-5.0); BILIRUBIN,DIRECT 0.3 mg/ml (0.0-0.4)
[2017-12-11] MEDS: Albuterol-Ipratrop 3 mg / 0.5 (3 ml) UD INH SCH ×4 (07:45→19:17)
--- NOTE | 2017-12-11 08:32 | CP.PCM.PN ---
Addendum entered and electronically signed by Jose Russell MD 12/11/17 15: 32: Abd CT 4/6 : findings compatible with acute pancreatitis. Plan: NPO IV fluids Morphine PRN for Pain CBC/CMP/lipase in the morning. Original Note: <Jose Russell - Last Filed: 12/11/17 14:34> Subjective - Date & Time of Evaluation Date of Evaluation: 12/11/17 Time of Evaluation: 08:32 - Subjective Subjective: Patient seen and examined this morning at bedside, reports feeling frustrated because he continues with abdominal discomfort. Patient was febrile yesterday in the evening and during night, afebrile now. Denies nausea/vomiting. Able to tolerate PO but states low appetite. Patient also report 3 episodes of nb diarrhea during the night. No chest pain, palpitations, edema or headache. Objective - Vital Signs/Intake and Output Vital Signs (last 24 hours): Temp Pulse Resp BP Pulse Ox 97.6 F 92 H 18 117/80 97 12/11/17 06:02 12/11/17 04:53 12/11/17 04:53 12/11/17 04:53 12/11/17 04:53 - Medications Medications: Current Medications Acetaminophen (Tylenol 325mg Tab) 650 mg PO Q6 PRN PRN Reason: Fever >100.4 F Last Admin: 12/10/17 21:01 Dose: 650 mg Acetaminophen (Tylenol 325mg Tab) 650 mg PO Q6 PRN PRN Reason: Pain, Mild (1-3) Albuterol Sulfate (Albuterol 0.083% Inhal Cassidy (2.5 Mg/3 Ml) Ud) 2.5 mg INH RQ6 PRN PRN Reason: Shortness of Breath Last Admin: 12/10/17 01:03 Dose: 2.5 mg Albuterol/Ipratropium (Duoneb 3 Mg/0.5 Mg (3 Ml) Ud) 3 ml INH RQID RUDDY Last Admin: 12/11/17 07:45 Dose: 3 ml Piperacillin Sod/Tazobactam (Sod 4.5 gm/ Sodium Chloride) 100 mls @ 100 mls/hr IVPB Q6 RUDDY PRN Reason: Protocol Last Admin: 12/11/17 04:09 Dose: 100 mls/hr Vancomycin HCl 1 gm/ Sodium (Chloride) 250 mls @ 166.667 mls/hr IVPB Q12H RUDDY PRN Reason: Protocol Last Admin: 12/10/17 22:52 Dose: 166.667 mls/hr Ketorolac Tromethamine (Toradol) 15 mg IVP Q6 PRN PRN Reason: Pain, moderate (4-7) Lidocaine (Lidoderm) 1 ea TD DAILY [facility] Last Admin: 12/10/17 11:15 Dose: 1 ea Pantoprazole Sodium (Protonix Ec Tab) 40 mg PO DAILY [facility] Last Admin: 12/10/17 09:00 Dose: 40 mg Fluticasone/Salmeterol (Advair Diskus 250/50) 1 puff IH Q12 RUDDY Last Admin: 12/10/17 22:01 Dose: 1 puff - Labs Labs: 12/11/17 05:10 12/11/17 05:10 - Constitutional Appears: No Acute Distress - Head Exam Head Exam: NORMAL INSPECTION - Eye Exam Eye Exam: EOMI, PERRL - Respiratory Exam Respiratory Exam: Clear to Ausculation Bilateral, NORMAL BREATHING PATTERN. absent: Wheezes - Cardiovascular Exam Cardiovascular Exam: Tachycardia, REGULAR RHYTHM, +S1, +S2 - GI/Abdominal Exam GI & Abdominal Exam: Soft, Tenderness (in epigastric and RUQ), Normal Bowel Sounds. absent: Distended, Guarding - Extremities Exam Extremities Exam: absent: Calf Tenderness - Neurological Exam Neurological Exam: Awake, Oriented x3 - Skin Skin Exam: Dry, Warm Assessment and Plan - Assessment and Plan (Free Text) Assessment: 42 yo M patient with PMH of Asthma and gastritis and pneumonia 2 months ago admitted due to Multifocal pneumonia, acute gastritis. Plan: 1- Multifocal Pneumonia: - CXR: multifocal pneumonia worse in left lung. - Chest CT: multifocal pneumonia worse in left lung, soft tissue in the left hilum may represent reactive hilar LAD, recommd f/u. - c/w zosyn 4.5 mg IV Q6H - Tylenol prn for fever - Pulmonology consult Dr Esposito, placed. - ID consult Dr Swain appreciated - CBC wbc 15 - procalcitonin 0.40 - f/u CBC - f/u Mycoplasma IgM, - Legionela neg - F/u blood cx negative - sputum culture pending - HIV pending 2- Abdominal pain/Gastritis - ABD CT 12/11: findings compatible with acute pancreatitis. - lipase 44 - f/u lipase - protonix 40mg PO daily 3- Wheezing - PMH of Asthma - neg sob - Duoneb Q4H ruddy - will monitor. 4- Transaminitis - AST/ALT 73/120 trending down, ALP 574 - ABD US: trace increased echogenicity surrounding portal triads diffusely. This can be seen with minimal degrees of the ascending cholangitis which may not have strong clinical symptoms. No intrahepatic bile duct dilatation. No gallstones. - Asymptomatic - hepatitis panel normal - going for HIDA - will monitor 5- DVT prophylaxis - SCD <Kathy Gaytan - Last Filed: 12/12/17 09:44> Subjective - Subjective Subjective: ATTENDING NOTE. ATTESTATION. PATIENT SEEN AND EXAMINED. CASE DISCUSSED WITH RESIDENT. AWAITING CT SCAN REPORT, ECHOCARDIOGRAM REPORT AND HIDA SCAN REPORT. AGREE WITH FINDINGS AND PLAN. Objective - Vital Signs/Intake and Output Vital Signs (last 24 hours): Temp Pulse Resp BP Pulse Ox 102.4 F H 126 H 18 115/80 96 12/12/17 08:23 12/12/17 08:23 12/12/17 08:23 12/12/17 08:23 12/12/17 08:23 Intake and Output: 12/12/17 12/12/17 06:59 18:59 Intake Total 3550 Balance 3550 - Medications Medications: Current Medications Acetaminophen (Tylenol 325mg Tab) 650 mg PO Q6 PRN PRN Reason: Fever >100.4 F Last Admin: 12/12/17 08:13 Dose: 650 mg Acetaminophen (Tylenol 325mg Tab) 650 mg PO Q6 PRN PRN Reason: Pain, Mild (1-3) Albuterol Sulfate (Albuterol 0.083% Inhal Cassidy (2.5 Mg/3 Ml) Ud) 2.5 mg INH RQ6 PRN PRN Reason: Shortness of Breath Last Admin: 12/12/17 03:34 Dose: 2.5 mg Vancomycin HCl 750 mg/ Sodium (Chloride) 250 mls @ 166.667 mls/hr IVPB DAILY RUDDY PRN Reason: Protocol Last Admin: 12/12/17 09:02 Dose: 166.667 mls/hr Piperacillin Sod/Tazobactam (Sod 2.25 gm/ Sodium Chloride) 100 mls @ 100 mls/ hr IVPB Q8 RUDDY PRN Reason: Protocol Last Admin: 12/12/17 08:20 Dose: 100 mls/hr Lactated Ringer's (Lactated Ringer's) 1,000 mls @ 250 mls/hr IV .Q4H RUDDY Last Admin: 12/12/17 09:19 Dose: 250 mls/hr Ipratropium [place] (Atrovent) 0.5 mg IH RQ6 RUDDY Last Admin: 12/12/17 09:22 Dose: 0.5 mg Levalbuterol HCl (Xopenex) 0.63 mg INH RQ6 RUDDY Last Admin: 12/12/17 09:29 Dose: 0.63 mg Lidocaine (Lidoderm) 1 ea TD DAILY [facility] Last Admin: 12/12/17 08:17 Dose: 1 ea Morphine Sulfate (Morphine) 2 mg IVP Q4 PRN PRN Reason: Pain, moderate (4-7) Morphine Sulfate (Morphine) 4 mg IVP Q4 PRN PRN Reason: Pain, severe (8-10) Last Admin: 12/12/17 06:47 Dose: 4 mg Nitroglycerin (Nitrostat Sl Tab) 0.4 mg SL Q5M PRN PRN Reason: Pain, Mild (1-3) Last Admin: 12/12/17 06:43 Dose: 0.4 mg Fluticasone/Salmeterol (Advair Diskus 250/50) 1 puff IH Q12 [facility] Last Admin: 12/12/17 08:17 Dose: 1 puff - Labs Labs: 12/11/17 05:10 12/11/17 05:10
[2017-12-11 08:41] LABS: BANDS 3 % (0-2); BASOPHIL 1 % (0-2); EOSINOPHIL 39 % (0-7); LYMPHOCYTE 11 % (20-50); MONOCYTE 5 % (0-10); NEUTROPHIL 41 % (42-75); PLATELET ESTIMATE NORMAL (NORMAL); TOTAL CELLS COUNTED 100
[2017-12-11 08:43] LABS: ANISOCYTOSIS SLIGHT
[2017-12-11] MEDS ORDERED: Pantoprazole 40 mg EC Tab PO SCH (09:00)
[2017-12-11] MEDS: Lidocaine 5% Patch TD SCH (09:42)
[2017-12-11] MEDS: Pantoprazole 40 mg EC Tab PO SCH (09:42)
[2017-12-11] MEDS: Fluticasone-Salmeterol 250-50mcg Diskus IH SCH ×2 (09:47→21:31)
--- NOTE | 2017-12-11 11:17 | CP.PCM.PN ---
Subjective - Date & Time of Evaluation Date of Evaluation: 12/11/17 Time of Evaluation: 17:50 - Subjective Subjective: ID Note- Pt. seen and examined this afternoon with his at his bedside. pt. just came back from CT abdomen and was found to have pancreatitis as per Ct report w/o pseudocyst. as per pt's pt. has been on multiple rounds of both IV and oral antibiotics at [facility] and they are concerned that perhaps the pancreatitis is caused by the previous antibiotics he has been on at the other hospitals. pt. states he has been c/o stomach and back pain for few weeks. he denies any nausea. he state he was given morphine today for pain and finally has less pain. patient denies heavy alcohol use and states only drinks a glass of wine or beer on occasion. denies any h/o gallstones. Objective - Vital Signs/Intake and Output Vital Signs (last 24 hours): Temp Pulse Resp BP Pulse Ox 98 F 100 H 20 127/86 94 L 12/11/17 08:00 12/11/17 08:00 12/11/17 08:00 12/11/17 08:00 12/11/17 08:00 - Medications Medications: Current Medications Acetaminophen (Tylenol 325mg Tab) 650 mg PO Q6 PRN PRN Reason: Fever >100.4 F Last Admin: 12/10/17 21:01 Dose: 650 mg Acetaminophen (Tylenol 325mg Tab) 650 mg PO Q6 PRN PRN Reason: Pain, Mild (1-3) Albuterol Sulfate (Albuterol 0.083% Inhal Cassidy (2.5 Mg/3 Ml) Ud) 2.5 mg INH RQ6 PRN PRN Reason: Shortness of Breath Last Admin: 12/10/17 01:03 Dose: 2.5 mg Albuterol/Ipratropium (Duoneb 3 Mg/0.5 Mg (3 Ml) Ud) 3 ml INH RQID DARIEL Last Admin: 12/11/17 07:45 Dose: 3 ml Piperacillin Sod/Tazobactam (Sod 4.5 gm/ Sodium Chloride) 100 mls @ 100 mls/hr IVPB Q6 DARIEL PRN Reason: Protocol Last Admin: 12/11/17 09:46 Dose: 100 mls/hr Vancomycin HCl 1 gm/ Sodium (Chloride) 250 mls @ 166.667 mls/hr IVPB Q12H DARIEL PRN Reason: Protocol Last Admin: 12/10/17 22:52 Dose: 166.667 mls/hr Ketorolac Tromethamine (Toradol) 15 mg IVP Q6 PRN PRN Reason: Pain, moderate (4-7) Lidocaine (Lidoderm) 1 ea TD DAILY DARIEL Last Admin: 12/11/17 09:42 Dose: 1 ea Pantoprazole Sodium (Protonix Ec Tab) 40 mg PO DAILY DARIEL Last Admin: 12/11/17 09:42 Dose: 40 mg Fluticasone/Salmeterol (Advair Diskus 250/50) 1 puff IH Q12 DARIEL Last Admin: 12/11/17 09:47 Dose: 1 puff - Labs Labs: - Additional Findings Additional findings: - Constitutional Appears: No Acute Distress - Head Exam Head Exam: ATRAUMATIC - Eye Exam Eye Exam: EOMI - ENT Exam ENT Exam: Normal Oropharynx - Neck Exam Neck exam: Positive for: Full Rom - Respiratory Exam Respiratory Exam: NORMAL BREATHING PATTERN Additional comments: has scattered coarse breath sounds b/l no wheezing - Cardiovascular Exam Cardiovascular Exam: RRR, +S1, +S2 - GI/Abdominal Exam GI & Abdominal Exam: Normal Bowel Sounds, Soft Additional comments: No distention mild midepigastric tendenress no guarding no rebound - Extremities Exam Extremities exam: Positive for: normal inspection - Neurological Exam Neurological exam: Alert, Oriented x 3 Laboratory Results - last 72 hr 12/09/17 12/09/17 12/09/17 10:57 12:38 12:38 WBC 13.3 H RBC 4.41 Hgb 13.2 Hct 40.0 MCV 90.8 MCH 30.0 MCHC 33.0 RDW 17.5 H Plt Count 229 MPV 8.0 Neut % (Auto) 40.6 L Lymph % (Auto) 18.8 L [place] % (Auto) 5.4 Eos % (Auto) 34.2 H Baso % (Auto) 1.0 Neut # (Auto) 5.4 Lymph # (Auto) 2.5 [place] # (Auto) 0.7 Eos # (Auto) 4.6 H Baso # (Auto) 0.1 Neutrophils % (Manual) 38 L Band Neutrophils % 1 Lymphocytes % (Manual) 29 Monocytes % (Manual) 4 Eosinophils % (Manual) 28 H Basophils % (Manual) Platelet Estimate Normal Anisocytosis (manual) Slight pO2 VBG pH VBG pCO2 VBG HCO3 VBG Total CO2 VBG O2 Sat (Calc) VBG Base Excess VBG Potassium Glucose Lactate FiO2 Sodium 140 Potassium 4.4 Chloride 99 Carbon Dioxide 29 Anion Gap 16 BUN 16 Creatinine 1.4 Est GFR ( Amer) > 60 Est GFR (Non-Af Amer) 55 Random Glucose 101 Calcium 8.9 Total Bilirubin 0.8 Direct Bilirubin AST 109 H ALT 148 H Alkaline Phosphatase 574 H Total Creatine Kinase NT-Pro-B Natriuret Pep Total Protein 7.9 Albumin 3.5 Globulin 4.4 H Albumin/Globulin Ratio 0.8 L Triglycerides Cholesterol LDL Cholesterol Direct HDL Cholesterol Lipase 44 Procalcitonin Venous Blood Potassium Hepatitis A IgM Ab Hep Bs Antigen Hep B Core IgM Ab Hepatitis C Antibody Influenza Typ A,B (EIA) Ur L.pneumophila Ag Negative 12/09/17 12/09/17 12/09/17 15:01 15:14 15:41 WBC RBC Hgb Hct MCV MCH MCHC RDW Plt Count MPV Neut % (Auto) Lymph % (Auto) [place] % (Auto) Eos % (Auto) Baso % (Auto) Neut # (Auto) Lymph # (Auto) [place] # (Auto) Eos # (Auto) Baso # (Auto) Neutrophils % (Manual) Band Neutrophils % Lymphocytes % (Manual) Monocytes % (Manual) Eosinophils % (Manual) Basophils % (Manual) Platelet Estimate Anisocytosis (manual) pO2 38 VBG pH 7.43 VBG pCO2 42 VBG HCO3 26.8 VBG Total CO2 29.2 H VBG O2 Sat (Calc) 75.9 H VBG Base Excess 3.2 H VBG Potassium 4.1 Glucose 77 Lactate 1.7 FiO2 21.0 Sodium 136.0 Potassium Chloride 102.0 Carbon Dioxide Anion Gap BUN Creatinine Est GFR ( Amer) Est GFR (Non-Af Amer) Random Glucose Calcium Total Bilirubin Direct Bilirubin AST ALT Alkaline Phosphatase Total Creatine Kinase NT-Pro-B Natriuret Pep Total Protein Albumin Globulin Albumin/Globulin Ratio Triglycerides Cholesterol LDL Cholesterol Direct HDL Cholesterol Lipase Procalcitonin Venous Blood Potassium 4.1 Hepatitis A IgM Ab Negative Hep Bs Antigen Negative Hep B Core IgM Ab Negative Hepatitis C Antibody Negative Influenza Typ A,B (EIA) Negative for flu a/b Ur L.pneumophila Ag 12/09/17 12/11/17 12/11/17 22:07 05:10 05:10 WBC 15.0 H RBC 3.91 L Hgb 11.6 L Hct 35.8 MCV 91.6 MCH 29.7 MCHC 32.4 L RDW 16.9 H Plt Count 143 MPV 8.4 Neut % (Auto) 35.8 L Lymph % (Auto) 16.0 L [place] % (Auto) 5.8 Eos % (Auto) 42.0 H Baso % (Auto) 0.4 Neut # (Auto) 5.4 Lymph # (Auto) 2.4 [place] # (Auto) 0.9 H Eos # (Auto) 6.3 H Baso # (Auto) 0.1 Neutrophils % (Manual) 41 L Band Neutrophils % 3 H Lymphocytes % (Manual) 11 L Monocytes % (Manual) 5 Eosinophils % (Manual) 39 H Basophils % (Manual) 1 Platelet Estimate Normal Anisocytosis (manual) Slight pO2 VBG pH VBG pCO2 VBG HCO3 VBG Total CO2 VBG O2 Sat (Calc) VBG Base Excess VBG Potassium Glucose Lactate FiO2 Sodium 143 Potassium 4.5 Chloride 108 H Carbon Dioxide 24 Anion Gap 16 BUN 14 Creatinine 1.9 H Est GFR ( Amer) 47 Est GFR (Non-Af Amer) 39 Random Glucose 73 L Calcium 8.0 L Total Bilirubin 0.6 Direct Bilirubin 0.3 AST 73 H D ALT 120 H Alkaline Phosphatase 602 H Total Creatine Kinase 86 NT-Pro-B Natriuret Pep 9100 H Total Protein 6.3 Albumin 2.6 L D Globulin 3.7 Albumin/Globulin Ratio 0.7 L Triglycerides 76 Cholesterol 137 LDL Cholesterol Direct 80 HDL Cholesterol 25 L Lipase 24 Procalcitonin 0.40 Venous Blood Potassium Hepatitis A IgM Ab Hep Bs Antigen Hep B Core IgM Ab Hepatitis C Antibody Influenza Typ A,B (EIA) Ur L.pneumophila Ag Microbiology 12/09/17 15:26 Blood-Venous Blood Culture - Preliminary NO GROWTH AFTER 48 HOURS 12/09/17 15:11 Blood-Venous Blood Culture - Preliminary NO GROWTH AFTER 48 HOURS 12/09/17 10:18 Urine,Clean Catch Urine Culture - Final No Growth (<1,000 CFU/ML) Accession No. : [id number] Patient Name / ID : ANTHONY FERNANDEZ / [id number] Exam Date : 12/11/2017 09:09:48 ( Approved ) Study Comment : Sex / Age : M / 42Y Creator : Sonya Leyva MD Dictator : Sonya Leyva MD President : Blood Coordinator : Sonya Leyva MD Approver2 : Report Date : 12/11/2017 14:13:08 My Comment : PROCEDURE: CT Abdomen and Pelvis without intravenous contrast HISTORY: Abdominal pain, leukocytosis, fever COMPARISON: Ultrasound abdomen from 12/09/[address] abdomen from 04/24/2016. TECHNIQUE: CT scan of the abdomen and pelvis was performed without administration of intravenous contrast. Oral contrast was not administered. Coronal and sagittal reformatted images were obtained. Radiation dose: Total exam DLP = Total exam DLP = 705.26 mGy-cm. This CT exam was performed using one or more of the following dose reduction techniques: Automated exposure control, adjustment of the mA and/or kV according to patient size, and/or use of iterative reconstruction technique. FINDINGS: LOWER THORAX: There are small scattered nodules in both lungs, the largest in the right middle lobe measures up to 5 mm. There are bilateral small pleural effusions. There is multifocal confluent subpleural airspace disease on the right middle lobe and right lower lobe. There is linear atelectasis in the lingula. LIVER: Normal in size. No gross lesion or ductal dilatation. GALLBLADDER AND BILE DUCTS: No calcified gallstones. PANCREAS: There is decreased attenuation in the pancreas with indistinct margins and peripancreatic inflammatory fat stranding. There are also extensive inflammatory changes in the right retroperitoneum with minimal fluid in the gallbladder fossa as well as right para renal inflammatory changes. SPLEEN: Normal in size. ADRENALS: No discrete nodule. KIDNEYS AND URETERS: Both kidneys are normal in size without hydronephrosis or nephrolithiasis. VASCULATURE: No aortic aneurysm. BOWEL: The proximal and distal small bowel loops are fluid-filled and normal in caliber. There is mild segmental dilatation of mid small bowel loop in the left mid abdomen likely related. The colon is unremarkable. APPENDIX: Normal appendix. PERITONEUM: No free fluid. No free air. LYMPH NODES: No enlarged lymph nodes. BLADDER: Grossly normal in appearance. REPRODUCTIVE: The prostate gland is normal in size. BONES: No acute fracture. Within normal limits for the patient's age. OTHER FINDINGS: None. To focal ileus IMPRESSION: Findings are most compatible with acute pancreatitis without evidence for pseudocyst formation. Extensive peripancreatic, right retroperitoneal and right perirenal inflammatory changes. Please correlate with serum lipase levels. Small bilateral pleural effusions. Confluent multifocal airspace disease in the visualized right lung most compatible with multifocal pneumonia. Scattered pulmonary nodules, measuring up to 5 mm. Accession No. : [id number] Patient Name / ID : ANTHONY FERNANDEZ / [id number] Exam Date : 12/11/2017 12:45:00 ( Approved ) Study Comment : Sex / Age : M / 42Y Creator : Shaq Andrade MD Dictator : Shaq Andrade MD President : Blood Coordinator : Shaq Andrade MD Approver2 : Report Date : 12/11/2017 16:08:26 My Comment : PROCEDURE: Nuclear Medicine Hepatobiliary Scan HISTORY: r/o acalculous erum COMPARISON: December 11, 2017. CT abdomen and pelvis TECHNIQUE: 5.7 mCi of technetium 99m Mebrofenin was administered intravenously. Planar images of the abdomen were obtained at 5 min intervals to 60 mins. Delayed images were also obtained. FINDINGS: LIVER: Timely and homogenous uptake. COMMON BILE DUCT: identified at 5 mins. GALLBLADDER: identified at 10 mins. SMALL BOWEL: Identified at 5 mins. IMPRESSION: Normal Hepatobiliary Scan. The cystic duct is patent. Assessment and Plan (1) Pneumonia Status: Acute (2) Elevated liver enzymes Status: Acute (3) Pancreatitis Status: Acute - Assessment and Plan (Free Text) Assessment: A/p- 42 year old male admitted with multifocal pneumonia and also found to have elevated liver enzymes. febrile last night leukocytois pereists elevated liver enzymes chest ct report- multifocal pneumonia urine legionella AG- negative abd ct- pancreatitis without psudocyst as per report. HIDA scan- no dcutal obstruction as per report plan- agree with IV zosyn and vanco to cover for HAP and nosocomial infections, however, will decrease the dose to renal dose. d/c zithromax. hepatitis panel was all negative. monitor LFTs closely. pancreatitis etiology unclear at this time. IV fluids and pain management as per GI and primary team for pancreatitis. d/w family practice resident advised to get medical records from [place] to see what medications pt. was on at that hospital. All above d/w patient and his and they verbalize full understanding of all above and agrees with above plan of care.
[2017-12-11] MEDS ORDERED: Morphine 4 MG/ML VIAL IVP ONE (12:05)
[2017-12-11] MEDS ORDERED: Morphine 4 MG/ML VIAL IVP PRN ×2 (12:05→15:26)
--- NOTE | 2017-12-11 12:39 | CARD ---
APPROVED REPORT EXAM: Two-dimensional and M-mode echocardiogram with Doppler and color Doppler. Other Information Quality : ExcellentRhythm : NSR INDICATION Dyspnea 2D DIMENSIONS IVSd0.97 (0.7-1.1cm)LVDd4.85 (3.9-5.9cm) LVOT Diameter2.43 (1.8-2.4cm)PWd0.95 (0.7-1.1cm) IVSs0.90 (0.8-1.2cm)LVDs3.82 (2.5-4.0cm) FS (%) 21.2 %PWs1.45 (0.8-1.2cm) M-Mode DIMENSIONS Left Atrium (MM)3.44 (2.5-4.0cm)IVSd1.00 (0.7-1.1cm) Aortic Root3.29 (2.2-3.7cm)LVDd5.38 (4.0-5.6cm) Aortic Cusp Exc.1.85 (1.5-2.0cm)PWd1.18 (0.7-1.1cm) IVSs1.47 cmFS (%) 27 % LVDs3.94 (2.0-3.8cm)PWs1.29 cm Mitral Valve MV E Xvhgikhn83.9cm/sMV DECEL [id number] A Lstdlmlz33.2cm/s MV KEC94qqR/A ratio1.3MVA (PHT)4.47cm2 TDI Lateral E' Peak V8.47cm/sMedial E' Peak V8.15cm/sE/Lateral E'9.4 E/Medial E'9.8 Pulmonary Valve PV Peak Xmvyaxkn513.5cm/s LEFT VENTRICLE The left ventricle is normal size. There is normal left ventricular wall thickness. The left ventricular function is normal. The left ventricular ejection fraction is 55% There is normal LV segmental wall motion. The left ventricular diastolic function is normal. No left ventricle thrombus noted on this study. There is no ventricular septal defect visualized. There is no left ventricular aneurysm. There is no mass noted in the left ventricle. RIGHT VENTRICLE The right ventricle is normal size. There is normal right ventricular wall thickness. The right ventricular systolic function is normal. ATRIA The left atrium size is normal. The right atrium size is normal. The interatrial septum is intact with no evidence for an atrial septal defect. AORTIC VALVE The aortic valve is normal in structure. No aortic regurgitation is present. There is no aortic valvular stenosis. There is no aortic valvular vegetation. MITRAL VALVE The mitral valve is normal in structure. There is no evidence of mitral valve prolapse. There is no mitral valve stenosis. Mitral regurgitation is trace. TRICUSPID VALVE The tricuspid valve is normal in structure. There is no tricuspid valve regurgitation noted. There is no tricuspid valve prolapse or vegetation. There is no tricuspid valve stenosis. PULMONIC VALVE The pulmonary valve is normal in structure. There is no pulmonic valvular regurgitation. There is no pulmonic valvular stenosis. GREAT VESSELS The aortic root is normal in size. The ascending aorta is normal in size. The IVC is normal in size and collapses >50% with inspiration. PERICARDIAL EFFUSION The pericardium appears normal. There is no pleural effusion. <Conclusion> Normal LV systolic function Trace Mitral Regurgitation
--- NOTE | 2017-12-11 14:19 | CT ---
PROCEDURE: CT Abdomen and Pelvis without intravenous contrast HISTORY: Abdominal pain, leukocytosis, fever COMPARISON: Ultrasound abdomen from 12/09/[address] abdomen from 04/24/2016. TECHNIQUE: CT scan of the abdomen and pelvis was performed without administration of intravenous contrast. Oral contrast was not administered. Coronal and sagittal reformatted images were obtained. Radiation dose: Total exam DLP = Total exam DLP = 705.26 mGy-cm. This CT exam was performed using one or more of the following dose reduction techniques: Automated exposure control, adjustment of the mA and/or kV according to patient size, and/or use of iterative reconstruction technique. FINDINGS: LOWER THORAX: There are small scattered nodules in both lungs, the largest in the right middle lobe measures up to 5 mm. There are bilateral small pleural effusions. There is multifocal confluent subpleural airspace disease on the right middle lobe and right lower lobe. There is linear atelectasis in the lingula. LIVER: Normal in size. No gross lesion or ductal dilatation. GALLBLADDER AND BILE DUCTS: No calcified gallstones. PANCREAS: There is decreased attenuation in the pancreas with indistinct margins and peripancreatic inflammatory fat stranding. There are also extensive inflammatory changes in the right retroperitoneum with minimal fluid in the gallbladder fossa as well as right para renal inflammatory changes. SPLEEN: Normal in size. ADRENALS: No discrete nodule. KIDNEYS AND URETERS: Both kidneys are normal in size without hydronephrosis or nephrolithiasis. VASCULATURE: No aortic aneurysm. BOWEL: The proximal and distal small bowel loops are fluid-filled and normal in caliber. There is mild segmental dilatation of mid small bowel loop in the left mid abdomen likely related. The colon is unremarkable. APPENDIX: Normal appendix. PERITONEUM: No free fluid. No free air. LYMPH NODES: No enlarged lymph nodes. BLADDER: Grossly normal in appearance. REPRODUCTIVE: The prostate gland is normal in size. BONES: No acute fracture. Within normal limits for the patient's age. OTHER FINDINGS: None. To focal ileus IMPRESSION: Findings are most compatible with acute pancreatitis without evidence for pseudocyst formation. Extensive peripancreatic, right retroperitoneal and right perirenal inflammatory changes. Please correlate with serum lipase levels. Small bilateral pleural effusions. Confluent multifocal airspace disease in the visualized right lung most compatible with multifocal pneumonia. Scattered pulmonary nodules, measuring up to 5 mm.
[2017-12-11] MEDS ORDERED: Sodium Chloride 0.9% 1,000 ML IV SCH (15:30)
[2017-12-11] MEDS: Lactated Ringer's 1,000 ML IV SCH ×4 (15:54→21:33)
--- NOTE | 2017-12-11 16:15 | NM ---
PROCEDURE: Nuclear Medicine Hepatobiliary Scan HISTORY: r/o acalculous erum COMPARISON: December 11, 2017. CT abdomen and pelvis TECHNIQUE: 5.7 mCi of technetium 99m Mebrofenin was administered intravenously. Planar images of the abdomen were obtained at 5 min intervals to 60 mins. Delayed images were also obtained. FINDINGS: LIVER: Timely and homogenous uptake. COMMON BILE DUCT: identified at 5 mins. GALLBLADDER: identified at 10 mins. SMALL BOWEL: Identified at 5 mins. IMPRESSION: Normal Hepatobiliary Scan. The cystic duct is patent.
--- NOTE | 2017-12-11 18:23 | CARD ---
APPROVED REPORT EKG Measurement Heart [id number] <Conclusion> Sinus tachycardia Rightward axis T wave abnormality, consider lateral ischemia Abnormal ECG
[2017-12-11] MEDS: Morphine 4 MG/ML VIAL IVP PRN (20:50)
[2017-12-12] MEDS: Morphine 4 MG/ML VIAL IVP PRN ×6 (01:09→22:30)
[2017-12-12] MEDS: Albuterol 0.083% Inhal Sol (2.5 mg/3 mL) UD INH PRN (03:34)
[2017-12-12] MEDS ORDERED: Lactated Ringer's 1,000 ML IV SCH ×2 (05:30→07:11)
[2017-12-12] MEDS ORDERED: Ipratropium 0.02% Inhal Soln (0.5 mg/2.5 ml) UD IH ONE (06:15)
[2017-12-12] MEDS ORDERED: Alum-Mag Hydrox-Simethicone Susp (30 mL) PO ONE (06:23)
[2017-12-12] MEDS: Levalbuterol 0.63 MG/3 ML Inhal Soln UD INH ONE ×2 (06:32→06:50)
--- NOTE | 2017-12-12 07:41 | PCM.RRT ---
<Nara Bhatia - Last Filed: 12/12/17 07:44> SANDWICH PEDDLER Nurse Assessment - Situation SANDWICH PEDDLER Responder Arrival Time: 06:14 Location: Tele 416 SANDWICH PEDDL[facility] Reason for Call: Chest Pain SANDWICH PEDDLER Called By: RN - IV IV Inserted during SANDWICH PEDDLER?: No - Respiratory Oxygen Delivery Method: Nasal Cannula (4L) - Medication Medications Administered During SANDWICH PEDDLER: Nitroglycerin x 2 tabs SL. Morphine 4mg IVP. Xopenex x 1 - Diagnostic Test Ordered EKG: Yes - Stat Labs Ordered SANDWICH PEDDLER Stat Labs Ordered: TROPONIN (x2) - Vital Signs Vital Signs: BP 129/89 HR 122 RR 22 O2 96% on 4L NC - Vital Signs at end of SANDWICH PEDDLER Vital Signs at end of SANDWICH PEDDLER: BP 125/72 HR 112 RR 20 O2 96 % on 4L NC I.Reason for SANDWICH PEDDLER - A) Acute Change in Patient: (Select all that apply): Staff member or family is worried about patient - Neurological Status (Select all that apply): Alert, Responsive, Oriented, Verbal - Respiratory Oxygen Delivery Method: Nasal Cannula @L/min (4L) - Constitutional Appears: In Acute Distress - Head Head Exam: ATRAUMATIC, NORMOCEPHALIC - Eyes Eye Exam: EOMI, Normal appearance - Respiratory Exam Respiratory Exam: Wheezes (B/L expiratory wheezing; audiable ), NORMAL BREATHING PATTERN. absent: Chest Wall Tenderness, Rales - Cardiovascular Exam Cardiovascular Exam: Tachycardia, REGULAR RHYTHM, +S1, +S2 - GI/Abdominal Exam GI & Abdominal Exam: Soft, Tenderness (mild epigastric tenderness ), Normal Bowel Sounds. absent: Distended, Guarding - Neurological Exam Neurological Exam: Alert, Awake, Oriented x3 - Extremities Exam Extremities Exam: Full ROM, Normal Inspection. absent: Calf Tenderness, Pedal Edema Plan - Assessment of Findings&Treatment Plan 42 YO male with PMH of asthma and gastritis is admitted for multifocal pneumonia and acute pancreatitis. SANDWICH PEDDLER was called by RN at 6:14 due to concerns of chest discomfort. SANDWICH PEDDL[facility] team arrived by bedside with Dr. Hobson. Pt endorsing R sided chest pain, with audible wheezing. Xopenex administered, follow by Nitro x 2 after which pain did not decrease. Subsequently pt was given Morphine IV and pain resolved; decreased from 5/10 at the start of SANDWICH PEDDLER to 1/10 at the end of the SANDWICH PEDDLER. Chest pain of unknown etiology -likely multifactorial; pt has asthma, pneumonia and acute pancreatitis -EKG sig for NSR with rate of 83 -Maalox administered -SL niytro x 2 given without any resolution of the pain -audible wheezing; Xopenex administered -Morphine administered,with drastic improvement of pain. -chest x-ray ordered -IVF to 999ml/hr -trops x 2 ordered <Yaniv Hobson - Last Filed: 12/12/17 16:41> SANDWICH PEDDLER Nurse Assessment - Vital Signs Vital Signs: Rapid Response Vital Sign Blood Pressure 129/89 Pulse Rate 122 Respiratory Rate 28 Oxygen Saturation 97 - Vital Signs at end of SANDWICH PEDDLER Vital Signs at end of SANDWICH PEDDLER: Rapid Response End Vital Sign Blood Pressure 106/64 Pulse Rate 120 Respiratory Rate 26 O2 Sat by Pulse Oximetry 94 Attending/Attestation - Attestation I have personally seen and examined this patient.: Yes I have fully participated in the care of the patient.: Yes I have reviewed all pertinent clinical information, including history, physical exam and plan: Yes Notes (Text): 12/12/17 16:32 I saw and examined this patient shoulder to shoulder with SDr Jannette. the assessment and plan represent my direct input. Complaint of chest pain and the old abdominal pain. EKG: Sinus Tachycardia with no sign of ischemia CXR: Left upper lobe consolidation #. Chest Pain due to Pneumonia r/o Esophagitis and CAD - Patient given Maalox without improvement. NTG sublingual X2 reduced the pain minimally - Morphine relieved chest pain completely - follow Troponin #. Abdominal Pain due to pancreatitis - cvontinue pain management - IV Fluids #. Pneumonia/Asthma - Xopenex nebulizer - Vancomycin and Zosyn already ordered Critical carte time 35 mins Yaniv Hobson MD 12/12/17 16:39
[2017-12-12] MEDS: Fluticasone-Salmeterol 250-50mcg Diskus IH SCH ×2 (08:17→21:44)
[2017-12-12] MEDS: Lidocaine 5% Patch TD SCH (08:17)
[2017-12-12] MEDS: Pantoprazole 40 mg EC Tab PO SCH (08:18)
--- NOTE | 2017-12-12 08:24 | CP.PCM.CON ---
<Pradeep Arreaga - Last Filed: 12/12/17 09:25> History of Present Illness - History of Present Illness History of Present Illness: PGY5 GI Fellow Consult Note Patient is a 42yo male with PMHx significant for severe asthma, vitiligo who presented to the ED on December 09 with abdominal pain for 4 days. The patient stated he has a history of gastritis (though he has never had EGD) often with epigastric, burning pain. The day prior to admission, he ate a meal consisting of very spicy food which seemed to exacerbate his abdominal pain and he became nauseated and vomited several times prompting him to be evaluated in the ED. He was recently started on PPI therapy 2 weeks prior to admission which did not seem to improve his symptoms. In the recent month leading up to admission patient states he was evaluated for his severe asthma at a specialty center where they performed thermoplasty on him. Shortly after he developed pneumonia and was actually admitted and treated at [facility] and finished a 10 course of Moxifloxacin prior to admission. He denies any change in bowel habits , weight loss, EtOH use, tobacco use, new medications or history of gallstones/ biliary disease. On admission, an U/S showed some inflammation around the portal triads and noncontrast CT was suspicious for acute pancreatitis though lipase was only 44. Patient was given aggressive IVF hydration with 400+cc/hr. He is also being treated for multifocal HCAP with vancomycin/zosyn. This morning , an CASTING TECHNICIAN was called as patient complained of right sided chest pain and SOB. He was given morphine and feels better now. PMHx: See HPI PSHx: Thermoplasty for asthma - Aug 2017 FHx: Denies any significant family history Social: Denies tobacco or illicit drug use; rare wine/beer intake Endo: Denies any prior endoscopic evaluations 12 system ROS performed and negative except where stated. Past Patient History - Past Medical History & Family History Past Medical History?: Yes - Past Social History Smoking Status: Never Smoked Drugs: Denies Home Situation {Lives}: With Family - CARDIAC Hx Cardiac Disorders: No - PULMONARY Hx Respiratory Disorders: Yes Hx Asthma: Yes Hx Pneumonia: Yes - NEUROLOGICAL Hx Neurological Disorder: No - HEENT Hx HEENT Problems: No - RENAL Hx Chronic Kidney Disease: No - ENDOCRINE/METABOLIC Hx Endocrine Disorders: No - HEMATOLOGICAL/ONCOLOGICAL Hx Blood Disorders: No - INTEGUMENTARY Hx Dermatological Problems: No - MUSCULOSKELETAL/RHEUMATOLOGICAL Hx Musculoskeletal Disorders: No Hx Falls: No - GASTROINTESTINAL Hx Gastritis: Yes - GENITOURINARY/GYNECOLOGICAL Hx Genitourinary Disorders: No - PSYCHIATRIC Hx Psychophysiologic Disorder: No Hx Substance Use: No - SURGICAL HISTORY Hx Surgeries: Yes Other/Comment: leg surgery x2, right leg abscess removal - ANESTHESIA Hx Anesthesia: Yes Hx Anesthesia Reactions: No Meds Allergies/Adverse Reactions: Allergies Allergy/AdvReac Type Severity Reaction Status Date / Time No Known Allergies Allergy Verified 04/24/16 17:23 - Medications Medications: Current Medications Acetaminophen (Tylenol 325mg Tab) 650 mg PO Q6 PRN PRN Reason: Fever >100.4 F Last Admin: 12/12/17 08:13 Dose: 650 mg Acetaminophen (Tylenol 325mg Tab) 650 mg PO Q6 PRN PRN Reason: Pain, Mild (1-3) Albuterol Sulfate (Albuterol 0.083% Inhal Cassidy (2.5 Mg/3 Ml) Ud) 2.5 mg INH RQ6 PRN PRN Reason: Shortness of Breath Last Admin: 12/12/17 03:34 Dose: 2.5 mg Vancomycin HCl 750 mg/ Sodium (Chloride) 250 mls @ 166.667 mls/hr IVPB DAILY DARIEL PRN Reason: Protocol Piperacillin Sod/Tazobactam (Sod 2.25 gm/ Sodium Chloride) 100 mls @ 100 mls/ hr IVPB Q8 DARIEL PRN Reason: Protocol Last Admin: 12/12/17 01:12 Dose: 100 mls/hr Lactated Ringer's (Lactated Ringer's) 1,000 mls @ 250 mls/hr IV .Q4H DARIEL Ipratropium [place] (Atrovent) 0.5 mg IH RQ6 DARIEL Levalbuterol HCl (Xopenex) 0.63 mg INH RQ6 DARIEL Lidocaine (Lidoderm) 1 ea TD DAILY DARIEL Last Admin: 12/11/17 09:42 Dose: 1 ea Morphine Sulfate (Morphine) 2 mg IVP Q4 PRN PRN Reason: Pain, moderate (4-7) Morphine Sulfate (Morphine) 4 mg IVP Q4 PRN PRN Reason: Pain, severe (8-10) Last Admin: 12/12/17 06:47 Dose: 4 mg Nitroglycerin (Nitrostat Sl Tab) 0.4 mg SL Q5M PRN PRN Reason: Pain, Mild (1-3) Last Admin: 12/12/17 06:43 Dose: 0.4 mg Pantoprazole Sodium (Protonix Ec Tab) 40 mg PO DAILY [facility] Last Admin: 12/11/17 09:42 Dose: 40 mg Fluticasone/Salmeterol (Advair Diskus 250/50) 1 puff IH Q12 [facility] Last Admin: 12/11/17 21:31 Dose: 1 puff Physical Exam - Constitutional Appears: Non-toxic, No Acute Distress - Eye Exam Eye Exam: EOMI, PERRL - ENT Exam ENT Exam: Mucous Membranes Dry - Respiratory Exam Respiratory Exam: Rales, Wheezes. absent: Clear to Auscultation Bilateral, Rhonchi - Cardiovascular Exam Cardiovascular Exam: RRR, +S1, +S2 - GI/Abdominal Exam GI & Abdominal Exam: Normal Bowel Sounds, Soft, Tenderness (epigastric). absent : Distended, Firm, Guarding, Organomegaly, Rigid - Extremities Exam Extremities exam: Positive for: normal inspection. Negative for: pedal edema - Neurological Exam Neurological exam: Alert, Oriented x3 - Psychiatric Exam Psychiatric exam: Normal Affect, Normal Mood - Skin Skin Exam: Dry, Warm Results - Vital Signs Recent Vital Signs: Last Vital Signs Temp 102.3 F H 12/12/17 08:13 Pulse 106 H 12/12/17 05:00 Resp 18 12/12/17 05:00 BP 116/85 12/12/17 05:00 Pulse Ox 99 12/12/17 05:00 - Labs Result Diagrams: 12/11/17 05:10 12/11/17 05:10 Labs: Laboratory Results - last 24 hr 12/11/17 12/11/17 05:10 05:10 Neutrophils % (Manual) 41 L Band Neutrophils % 3 H Lymphocytes % (Manual) 11 L Monocytes % (Manual) 5 Eosinophils % (Manual) 39 H Basophils % (Manual) 1 Platelet Estimate Normal Anisocytosis (manual) Slight Sodium 143 Potassium 4.5 Chloride 108 H Carbon Dioxide 24 Anion Gap 16 BUN 14 Creatinine 1.9 H Est GFR ( Amer) 47 Est GFR (Non-Af Amer) 39 Random Glucose 73 L Calcium 8.0 L Total Bilirubin 0.6 Direct Bilirubin 0.3 AST 73 H D ALT 120 H Alkaline Phosphatase 602 H Total Creatine Kinase 86 NT-Pro-B Natriuret Pep 9100 H Total Protein 6.3 Albumin 2.6 L D Globulin 3.7 Albumin/Globulin Ratio 0.7 L Triglycerides 76 Cholesterol 137 LDL Cholesterol Direct 80 HDL Cholesterol 25 L Lipase 24 Assessment & Plan - Assessment and Plan (Free Text) Assessment: Patient is a 42yo male with PMHx significant for severe asthma, vitiligo who presented to the ED on December 09 with abdominal pain for 4 days. -Acute pancreatitis -Multifocal HCAP -Abnormal LFTs -Severe asthma s/p thermoplasty in August 2017 Plan: -Unclear etiology of pancreatitis at this time but meets criteria based on pain pattern and imaging findings -CASTING TECHNICIAN this AM with chest pain/SOB - troponin ordered pending -BNP noted to be significantly elevated though echocardiogram relatively unremarkable -Ongoing treatment for multifocal pneumonia - Vanc/zosyn -Check SHARONDA, AMA, ASMA, IgG level and IgG subclass 4 -Hepatitis serologies unremarkable -Suspect fever 2/2 ongoing HCAP -Could consider further imaging with pancreatic protocol CT if symptoms worsen -May ultimately require EUS as outpatient - Date & Time Date: 12/12/17 Time: 07:00 <Shilo Smith - Last Filed: 12/12/17 10:07> Meds - Medications Medications: Current Medications Acetaminophen (Tylenol 325mg Tab) 650 mg PO Q6 PRN PRN Reason: Fever >100.4 F Last Admin: 12/12/17 08:13 Dose: 650 mg Acetaminophen (Tylenol 325mg Tab) 650 mg PO Q6 PRN PRN Reason: Pain, Mild (1-3) Albuterol Sulfate (Albuterol 0.083% Inhal Cassidy (2.5 Mg/3 Ml) Ud) 2.5 mg INH RQ6 PRN PRN Reason: Shortness of Breath Last Admin: 12/12/17 03:34 Dose: 2.5 mg Vancomycin HCl 750 mg/ Sodium (Chloride) 250 mls @ 166.667 mls/hr IVPB DAILY DARIEL PRN Reason: Protocol Last Admin: 12/12/17 09:02 Dose: 166.667 mls/hr Piperacillin Sod/Tazobactam (Sod 2.25 gm/ Sodium Chloride) 100 mls @ 100 mls/ hr IVPB Q8 DARIEL PRN Reason: Protocol Last Admin: 12/12/17 08:20 Dose: 100 mls/hr Lactated Ringer's (Lactated Ringer's) 1,000 mls @ 250 mls/hr IV .Q4H DARIEL Last Admin: 12/12/17 09:19 Dose: 250 mls/hr Ipratropium [place] (Atrovent) 0.5 mg IH RQ6 DARIEL Last Admin: 12/12/17 09:22 Dose: 0.5 mg Levalbuterol HCl (Xopenex) 0.63 mg INH RQ6 DARIEL Last Admin: 12/12/17 09:29 Dose: 0.63 mg Lidocaine (Lidoderm) 1 ea TD DAILY DARIEL Last Admin: 12/12/17 08:17 Dose: 1 ea Morphine Sulfate (Morphine) 2 mg IVP Q4 PRN PRN Reason: Pain, moderate (4-7) Morphine Sulfate (Morphine) 4 mg IVP Q4 PRN PRN Reason: Pain, severe (8-10) Last Admin: 12/12/17 06:47 Dose: 4 mg Nitroglycerin (Nitrostat Sl Tab) 0.4 mg SL Q5M PRN PRN Reason: Pain, Mild (1-3) Last Admin: 12/12/17 06:43 Dose: 0.4 mg Fluticasone/Salmeterol (Advair Diskus 250/50) 1 puff IH Q12 [facility] Last Admin: 12/12/17 08:17 Dose: 1 puff Results - Vital Signs Recent Vital Signs: Last Vital Signs Temp 102.4 F H 12/12/17 08:23 Pulse 126 H 12/12/17 08:23 Resp 18 12/12/17 08:23 BP 115/80 12/12/17 08:23 Pulse Ox 96 12/12/17 08:23 - Labs Result Diagrams: 12/11/17 05:10 12/11/17 05:10 Labs: Laboratory Results - last 24 hr 12/11/17 05:10 Sodium 143 Potassium 4.5 Chloride 108 H Carbon Dioxide 24 Anion Gap 16 BUN 14 Creatinine 1.9 H Est GFR ( Amer) 47 Est GFR (Non-Af Amer) 39 Random Glucose 73 L Calcium 8.0 L Total Bilirubin 0.6 Direct Bilirubin 0.3 AST 73 H D ALT 120 H Alkaline Phosphatase 602 H Total Creatine Kinase 86 NT-Pro-B Natriuret Pep 9100 H Total Protein 6.3 Albumin 2.6 L D Globulin 3.7 Albumin/Globulin Ratio 0.7 L Triglycerides 76 Cholesterol 137 LDL Cholesterol Direct 80 HDL Cholesterol 25 L Lipase 24 Attending/Attestation - Attestation I have personally seen and examined this patient.: Yes I have fully participated in the care of the patient.: Yes I have reviewed all pertinent clinical information: Yes Notes (Text): 12/12/17 09:57 I have seen and examined patient with GI fellow. Agree with above documentation with the following additions. In brief, this is a 42 year old male with history of medically refractory asthma, vitiligo, who presents to hospital with complaint of abdominal pain. He describes a sharp, 10/10 intensity epigastric pain radiating to back that has been present for 4 days and worse after meal consumption. He describes recent hospitalization at [facility] for treatment of pneumonia. During this time period he also reports nausea with two episodes of non-bloody emesis. Aside from recent antibiotics for infectious pulmonary treatment and the initiation of PPI therapy 2 weeks ago he denies other medication changes. He denies significant ETOH use, fever/ chills, weight loss, rectal bleeding, or change in bowel habits. No prior endoscopic evaluation. Review of vitals from today shows temperature of 102, tachycardia. Asthma Vitiligo Abdominal pain - acute pancreatitis Pneumonia Transaminitis CT imaging reviewed by me showing manoj-pancreatic edema without focal necrotizing features. Also noted is multifocal pneumonia. - Liquid diet as tolerated - Continue with antibiotic therapy - Would discontinue use of PPI as this has been implicated in cases of pancreatitis - Follow up blood cultures - Continue to monitor LFTs, awaiting autoimmune panel testing - Obtain IGG4 - Continue with conservative management, IVF hydration, pain control - Patient would likely benefit from elective EUS examination as outpatient following resolution of acute symptoms. Will continue to monitor patient clinical course.
--- NOTE | 2017-12-12 08:26 | CP.PCM.PN ---
<Jose Russell - Last Filed: 12/12/17 14:29> Subjective - Date & Time of Evaluation Date of Evaluation: 12/12/17 Time of Evaluation: 08:26 - Subjective Subjective: Patient seen and examined today at bedside. Patient febrile during visit and also during the night. This morning, an MEDICAID BILLING CLERK was called as patient complained of right sided chest pain and SOB. He was given NTG and morphine and feels better now. Also c/o dark vomiting x1 during night and mild epigastric abdominal pain. Now he denies chest pain, palpitations, sob, no headche, diarrhea, no urinary symptoms. Blood work showed elevated troponin I x1 and ekg T wave changes, Cardio Dr Patel consulted, patient transferred to ICU. Objective - Vital Signs/Intake and Output Vital Signs (last 24 hours): Temp Pulse Resp BP Pulse Ox 102.4 F H 126 H 18 115/80 96 12/12/17 08:23 12/12/17 08:23 12/12/17 08:23 12/12/17 08:23 12/12/17 08:23 Intake and Output: 12/12/17 12/12/17 06:59 18:59 Intake Total 3550 Balance 3550 - Medications Medications: Current Medications Acetaminophen (Tylenol 325mg Tab) 650 mg PO Q6 PRN PRN Reason: Fever >100.4 F Last Admin: 12/12/17 08:13 Dose: 650 mg Acetaminophen (Tylenol 325mg Tab) 650 mg PO Q6 PRN PRN Reason: Pain, Mild (1-3) Albuterol Sulfate (Albuterol 0.083% Inhal Cassidy (2.5 Mg/3 Ml) Ud) 2.5 mg INH RQ6 PRN PRN Reason: Shortness of Breath Last Admin: 12/12/17 03:34 Dose: 2.5 mg Vancomycin HCl 750 mg/ Sodium (Chloride) 250 mls @ 166.667 mls/hr IVPB DAILY RUDDY PRN Reason: Protocol Piperacillin Sod/Tazobactam (Sod 2.25 gm/ Sodium Chloride) 100 mls @ 100 mls/ hr IVPB Q8 RUDDY PRN Reason: Protocol Last Admin: 12/12/17 01:12 Dose: 100 mls/hr Lactated Ringer's (Lactated Ringer's) 1,000 mls @ 250 mls/hr IV .Q4H RUDDY Ipratropium [place] (Atrovent) 0.5 mg IH RQ6 [facility] Levalbuterol HCl (Xopenex) 0.63 mg INH RQ6 [facility] Lidocaine (Lidoderm) 1 ea TD DAILY [facility] Last Admin: 12/11/17 09:42 Dose: 1 ea Morphine Sulfate (Morphine) 2 mg IVP Q4 PRN PRN Reason: Pain, moderate (4-7) Morphine Sulfate (Morphine) 4 mg IVP Q4 PRN PRN Reason: Pain, severe (8-10) Last Admin: 12/12/17 06:47 Dose: 4 mg Nitroglycerin (Nitrostat Sl Tab) 0.4 mg SL Q5M PRN PRN Reason: Pain, Mild (1-3) Last Admin: 12/12/17 06:43 Dose: 0.4 mg Pantoprazole Sodium (Protonix Ec Tab) 40 mg PO DAILY [facility] Last Admin: 12/11/17 09:42 Dose: 40 mg Fluticasone/Salmeterol (Advair Diskus 250/50) 1 puff IH Q12 [facility] Last Admin: 12/11/17 21:31 Dose: 1 puff - Labs Labs: 12/11/17 05:10 12/11/17 05:10 - Constitutional Appears: In Acute Distress (due to abdominal pain) - Head Exam Head Exam: NORMAL INSPECTION - Eye Exam Eye Exam: EOMI, PERRL - Respiratory Exam Respiratory Exam: Wheezes, NORMAL BREATHING PATTERN. absent: Accessory Muscle Use, Chest Wall Tenderness - Cardiovascular Exam Cardiovascular Exam: Tachycardia, REGULAR RHYTHM, +S1, +S2 - GI/Abdominal Exam GI & Abdominal Exam: Soft, Tenderness (diffuse), Normal Bowel Sounds. absent: Distended - Extremities Exam Extremities Exam: absent: Calf Tenderness - Neurological Exam Neurological Exam: Alert, Awake, Oriented x3 - Psychiatric Exam Psychiatric exam: Anxious - Skin Skin Exam: Dry, Warm Assessment and Plan - Assessment and Plan (Free Text) Assessment: 42 yo M patient with PMH of Asthma and gastritis and pneumonia 2 months ago admitted due to Multifocal pneumonia. CT scan 12/11: pancreatitis. Elevated troponin I x1. Patient transferred to ICU. Plan: 1- Pancreatitis CT 12/11: findings compatible with acute pancreatitis. -Unclear etiology of pancreatitis at this time but meets criteria based on pain pattern and imaging findings - NPO - IV fluids LR 125ml/h - morphine 4 mg Q6 PRN for pain - GI Dr Smith consult appreciated, agree with plan - f/u SHARONDA, AMA, ASMA, IgG level and IgG subclass 4 - Patient would likely benefit from elective EUS examination as outpatient following resolution of acute symptoms. - Will continue to monitor patient clinical course. - lipase 44 - lipid panel wnl 2- chest pain/elevated Troponin x1 r/o MO - patient transferred to ICU - Cardio consult Dr Patel appreciated -ASA 300 CT once -metoprolol 25 mg IV once - troponin x1 0.877 - EKG: ST-T inespecific changes from pervious one, sinus tachy - f/u serial troponin -BNP noted to be significantly elevated though echocardiogram unremarkable 3- Multifocal Pneumonia: - c/w zosyn 4.5 mg IV Q6H - Tylenol prn for fever - Pulmonology consult Dr Esposito, appreciated. - ID consult Dr Swain appreciated - CBC wbc 21 trending up - procalcitonin 0.40 - f/u CBC - f/u Mycoplasma IgM, - Legionela neg - F/u blood cx negative - sputum culture pending - HIV pending 4- Wheezing - PMH of Asthma - Duoneb Q4H ruddy - will monitor. 5- Transaminitis - AST/ALT 73/120 trending down, ALP 574. - ABD US: trace increased echogenicity surrounding portal triads diffusely. This can be seen with minimal degrees of the ascending cholangitis which may not have strong clinical symptoms. No intrahepatic bile duct dilatation. No gallstones. - HIDA: negative for ductal and gallblader stones. - Asymptomatic - hepatitis panel normal - will monitor 6- DVT prophylaxis - lovenox 70 mg sc BID <Lukas,Kathy - Last Filed: 12/13/17 09:01> Objective - Vital Signs/Intake and Output Vital Signs (last 24 hours): Temp Pulse Resp BP Pulse Ox 100.2 F H 121 H 19 111/85 97 12/13/17 06:00 12/13/17 06:00 12/13/17 06:00 12/13/17 06:00 12/13/17 06:00 Intake and Output: 12/13/17 12/13/17 06:59 18:59 Intake Total 293 Output Total 925 Balance -632 - Medications Medications: Current Medications Acetaminophen (Tylenol 325mg Tab) 650 mg PO Q6 PRN PRN Reason: Fever >100.4 F Last Admin: 12/12/17 08:13 Dose: 650 mg Acetaminophen (Tylenol 325mg Tab) 650 mg PO Q6 PRN PRN Reason: Pain, Mild (1-3) Aspirin (Aspirin Chewable) 81 mg PO DAILY [facility] Enoxaparin Sodium (Lovenox) 70 mg SC Q12 RUDDY PRN Reason: Protocol Last Admin: 12/12/17 21:42 Dose: 70 mg Vancomycin HCl 750 mg/ Sodium (Chloride) 250 mls @ 166.667 mls/hr IVPB DAILY RUDDY PRN Reason: Protocol Last Admin: 12/12/17 09:02 Dose: 166.667 mls/hr Meropenem 1 gm/ Sodium (Chloride) 100 mls @ 100 mls/hr IVPB Q8 RUDDY PRN Reason: Protocol Last Admin: 12/13/17 00:11 Dose: 100 mls/hr Ipratropium [place] (Atrovent) 0.5 mg IH RQ6 [facility]UDDY Levalbuterol HCl (Xopenex) 0.63 mg INH RQ6 RUDDY Last Admin: 12/13/17 07:49 Dose: 0.63 mg Lidocaine (Lidoderm) 1 ea TD DAILY [facility] Last Admin: 12/12/17 08:17 Dose: 1 ea Metoprolol Tartrate (Lopressor) 25 mg PO Q12 [facility] Morphine Sulfate (Morphine) 2 mg IVP Q4 PRN PRN Reason: Pain, moderate (4-7) Morphine Sulfate (Morphine) 4 mg IVP Q4 PRN PRN Reason: Pain, severe (8-10) Last Admin: 12/13/17 03:20 Dose: 4 mg Nitroglycerin (Nitrostat Sl Tab) 0.4 mg SL Q5M PRN PRN Reason: Pain, Mild (1-3) Last Admin: 12/12/17 06:43 Dose: 0.4 mg Fluticasone/Salmeterol (Advair Diskus 250/50) 1 puff IH Q12 [facility] Last Admin: 12/12/17 21:44 Dose: 1 puff - Labs Labs: 12/13/17 04:45 12/13/17 04:45 Attending/Attestation - Attestation I have personally seen and examined this patient.: Yes I have fully participated in the care of the patient.: Yes I have reviewed all pertinent clinical information, including history, physical exam and plan: Yes Notes (Text): 12/13/17 08:59 ATTENDING NOTE -ATTESTATION. PATIENT SEEN AND EXAMINED. CASE DISCUSSED WITH RESIDENT. VOMITED AND ABD PAIN THIS AM. MEDICAID BILLING CLERK OUTLINED BY RESIDENT. OCCURRED THIS AM. NO PAIN AT PRESENT. EKG ON ADMISSION = INVERTED T WAVES LATERALLY. TODAY REPEAT EKG = FLATTENED T WAVES LATERALLY. POOR R WAVE PROGRESSION ANTERIORLY ON BOTH EKG'S. ELEVATED TROP THIS AM POST MEDICAID BILLING CLERK. AGREE WITH FINDINGS AND PLAN.
[2017-12-12] MEDS: Ipratropium 0.02% Inhal Soln (0.5 mg/2.5 ml) UD IH SCH ×3 (09:22→19:22)
--- NOTE | 2017-12-12 09:28 | RAD ---
HISTORY: chest pain COMPARISON: Comparison chest 12/09/2017. FINDINGS: LUNGS: Left upper lobe consolidation. Mild atelectatic changes seen in both lung bases. PLEURA: No significant pleural effusion identified, no pneumothorax apparent. CARDIOVASCULAR: Heart size is borderline enlarged which may in part be secondary to previously noted small pericardial effusion. OSSEOUS STRUCTURES: No significant abnormalities. VISUALIZED UPPER ABDOMEN: Normal. OTHER FINDINGS: None. IMPRESSION: Left upper lobe consolidation. Mild bibasilar atelectasis.
[2017-12-12] MEDS: Levalbuterol 0.63 MG/3 ML Inhal Soln UD INH SCH ×3 (09:29→19:21)
[2017-12-12 11:19] LABS: BASO # 0.1 K/uL (0.0-0.2); BASO % 0.4 % (0.0-2.0); EOS # 7.9 K/uL (0.0-0.7); EOS % 36.7 % (0.0-4.0); HEMOGLOBIN 11.8 g/dL (12.0-18.0); LYMPH # 3.7 K/uL (1.0-4.3); LYMPH % 16.9 % (20.0-40.0); MEAN CELL VOLUME 89.7 fl (80.0-94.0); MEAN CORPUSCULAR HEMOGLOBIN 29.9 pg (27.0-31.0); MEAN CORPUSCULAR HGB CONC 33.3 g/dL (33.0-37.0); MEAN PLATELET VOLUME 8.5 fl (7.2-11.7); MONO # 1.2 K/uL (0.0-0.8); MONO % 5.3 % (0.0-10.0); NEUT # 8.8 K/uL (1.8-7.0); NEUT % 40.7 % (50.0-75.0); RBC 3.96 Mil/uL (4.40-5.90); RED CELL DISTRIBUTION WIDTH 16.2 % (11.5-14.5); WHITE BLOOD COUNT 21.6 K/uL (4.8-10.8)
[2017-12-12 11:52] LABS: ALBUMIN 2.7 g/dL (3.5-5.0); CALCIUM 8.1 mg/dL (8.4-10.2)
[2017-12-12 11:53] LABS: ALB/GLOB RATIO 0.7 (1.0-2.1)
[2017-12-12] MEDS ORDERED: Metoprolol 1 mg/ml Inj IVP ONE (12:02)
[2017-12-12] MEDS ORDERED: Enoxaparin 60 mg Syringe SC SCH (12:15)
--- NOTE | 2017-12-12 12:35 | CP.PCM.PN ---
Subjective - Date & Time of Evaluation Date of Evaluation: 12/12/17 Time of Evaluation: 12:35 - Subjective Subjective: ID note- Pt. seen and examined in ICU today. Pt. apparently had chest pain earlier this morning and had OPEN CUT EXAMINER and since troponin was slightly pos he was transferred to ICU for closer observation. pt. c/o having some wheezing and also states he had one episode of vomiting dark fluid this am. denies any active chest pain. denies any TEJEDA. denies sob. Objective - Vital Signs/Intake and Output Vital Signs (last 24 hours): Temp Pulse Resp BP Pulse Ox 97.5 F L 112 H 18 111/76 92 L 12/12/17 12:00 12/12/17 12:00 12/12/17 12:00 12/12/17 12:00 12/12/17 12:00 Intake and Output: 12/12/17 12/12/17 06:59 18:59 Intake Total 3550 Balance 3550 - Medications Medications: Current Medications Acetaminophen (Tylenol 325mg Tab) 650 mg PO Q6 PRN PRN Reason: Fever >100.4 F Last Admin: 12/12/17 08:13 Dose: 650 mg Acetaminophen (Tylenol 325mg Tab) 650 mg PO Q6 PRN PRN Reason: Pain, Mild (1-3) Albuterol Sulfate (Albuterol 0.083% Inhal Cassidy (2.5 Mg/3 Ml) Ud) 2.5 mg INH RQ6 PRN PRN Reason: Shortness of Breath Last Admin: 12/12/17 03:34 Dose: 2.5 mg Enoxaparin Sodium (Lovenox) 70 mg SC Q12 DARIEL PRN Reason: Protocol Vancomycin HCl 750 mg/ Sodium (Chloride) 250 mls @ 166.667 mls/hr IVPB DAILY DARIEL PRN Reason: Protocol Last Admin: 12/12/17 09:02 Dose: 166.667 mls/hr Piperacillin Sod/Tazobactam (Sod 2.25 gm/ Sodium Chloride) 100 mls @ 100 mls/ hr IVPB Q8 DARIEL PRN Reason: Protocol Last Admin: 12/12/17 08:20 Dose: 100 mls/hr Lactated Ringer's (Lactated Ringer's) 1,000 mls @ 250 mls/hr IV .Q4H [facility] Last Admin: 12/12/17 09:19 Dose: 250 mls/hr Ipratropium [place] (Atrovent) 0.5 mg IH RQ6 [facility] Last Admin: 12/12/17 09:22 Dose: 0.5 mg Levalbuterol HCl (Xopenex) 0.63 mg INH RQ6 [facility] Last Admin: 12/12/17 09:29 Dose: 0.63 mg Lidocaine (Lidoderm) 1 ea TD DAILY [facility] Last Admin: 12/12/17 08:17 Dose: 1 ea Morphine Sulfate (Morphine) 2 mg IVP Q4 PRN PRN Reason: Pain, moderate (4-7) Morphine Sulfate (Morphine) 4 mg IVP Q4 PRN PRN Reason: Pain, severe (8-10) Last Admin: 12/12/17 10:50 Dose: 4 mg Nitroglycerin (Nitrostat Sl Tab) 0.4 mg SL Q5M PRN PRN Reason: Pain, Mild (1-3) Last Admin: 12/12/17 06:43 Dose: 0.4 mg Fluticasone/Salmeterol (Advair Diskus 250/50) 1 puff IH Q12 [facility] Last Admin: 12/12/17 08:17 Dose: 1 puff - Labs Labs: - Additional Findings Additional findings: Constitutional Appears: No Acute Distress - Head Exam Head Exam: ATRAUMATIC - Eye Exam Eye Exam: EOMI - ENT Exam ENT Exam: Normal Oropharynx - Neck Exam Neck exam: Positive for: Full Rom - Respiratory Exam Respiratory Exam: NORMAL BREATHING PATTERN Additional comments: mild exp wheezing on right lung left lung decreased breath sounds - Cardiovascular Exam Cardiovascular Exam: RRR, +S1, +S2 - GI/Abdominal Exam GI & Abdominal Exam: Normal Bowel Sounds, Soft Additional comments: No distention mild midepigastric tendenress no guarding no rebound - Extremities Exam Extremities exam: Positive for: normal inspection - Neurological Exam Neurological exam: Alert, Oriented x 3 Laboratory Results - last 72 hr 12/09/17 12/09/17 12/09/17 10:57 12:38 15:01 WBC RBC Hgb Hct MCV MCH MCHC RDW Plt Count MPV Neut % (Auto) Lymph % (Auto) Early % (Auto) Eos % (Auto) Baso % (Auto) Neut # (Auto) Lymph # (Auto) Early # (Auto) Eos # (Auto) Baso # (Auto) Total Counted Neutrophils % (Manual) 38 L Band Neutrophils % 1 Lymphocytes % (Manual) 29 Reactive Lymphs % Monocytes % (Manual) 4 Eosinophils % (Manual) 28 H Basophils % (Manual) Metamyelocytes % Myelocytes % Promyelocytes % Blast Cells % Plasma Cell % (Manual) Nucleated RBC % Hypersegmented Polys Smudge Cells Toxic Granulation Dohle Bodies Yelena Rods Platelet Estimate Normal Plt Clumps, EDTA Large Platelets Giant Platelets RBC Morphology Polychromasia Hypochromasia (manual) Poikilocytosis (manual Basophilic Stippling Anisocytosis (manual) Slight Microcytosis (manual) Macrocytosis (manual) Spherocytes Sickle Cells Target Cells Tear Drop Cells Ovalocytes Stomatocytes Helmet Cells [place] Bodies Breanna Cells Acanthocytes (Spur) Rouleaux Schistocytes pO2 VBG pH VBG pCO2 VBG HCO3 VBG Total CO2 VBG O2 Sat (Calc) VBG Base Excess VBG Potassium Sodium Chloride Glucose Lactate FiO2 Potassium Carbon Dioxide Anion Gap BUN Creatinine Est GFR ( Amer) Est GFR (Non-Af Amer) Random Glucose Calcium Total Bilirubin Direct Bilirubin AST ALT Alkaline Phosphatase Total Creatine Kinase Troponin I NT-Pro-B Natriuret Pep Total Protein Albumin Globulin Albumin/Globulin Ratio Triglycerides Cholesterol LDL Cholesterol Direct HDL Cholesterol Lipase Procalcitonin Venous Blood Potassium Hepatitis A IgM Ab Negative Hep Bs Antigen Negative Hep B Core IgM Ab Negative Hepatitis C Antibody Negative Influenza Typ A,B (EIA) Ur L.pneumophila Ag Negative 12/09/17 12/09/17 12/09/17 15:14 15:41 22:07 WBC RBC Hgb Hct MCV MCH MCHC RDW Plt Count MPV Neut % (Auto) Lymph % (Auto) Early % (Auto) Eos % (Auto) Baso % (Auto) Neut # (Auto) Lymph # (Auto) Early # (Auto) Eos # (Auto) Baso # (Auto) Total Counted Neutrophils % (Manual) Band Neutrophils % Lymphocytes % (Manual) Reactive Lymphs % Monocytes % (Manual) Eosinophils % (Manual) Basophils % (Manual) Metamyelocytes % Myelocytes % Promyelocytes % Blast Cells % Plasma Cell % (Manual) Nucleated RBC % Hypersegmented Polys Smudge Cells Toxic Granulation Dohle Bodies Yelena Rods Platelet Estimate Plt Clumps, EDTA Large Platelets Giant Platelets RBC Morphology Polychromasia Hypochromasia (manual) Poikilocytosis (manual Basophilic Stippling Anisocytosis (manual) Microcytosis (manual) Macrocytosis (manual) Spherocytes Sickle Cells Target Cells Tear Drop Cells Ovalocytes Stomatocytes Helmet Cells [place] Bodies Breanna Cells Acanthocytes (Spur) Rouleaux Schistocytes pO2 38 VBG pH 7.43 VBG pCO2 42 VBG HCO3 26.8 VBG Total CO2 29.2 H VBG O2 Sat (Calc) 75.9 H VBG Base Excess 3.2 H VBG Potassium 4.1 Sodium 136.0 Chloride 102.0 Glucose 77 Lactate 1.7 FiO2 21.0 Potassium Carbon Dioxide Anion Gap BUN Creatinine Est GFR ( Amer) Est GFR (Non-Af Amer) Random Glucose Calcium Total Bilirubin Direct Bilirubin AST ALT Alkaline Phosphatase Total Creatine Kinase Troponin I NT-Pro-B Natriuret Pep Total Protein Albumin Globulin Albumin/Globulin Ratio Triglycerides Cholesterol LDL Cholesterol Direct HDL Cholesterol Lipase Procalcitonin 0.40 Venous Blood Potassium 4.1 Hepatitis A IgM Ab Hep Bs Antigen Hep B Core IgM Ab Hepatitis C Antibody Influenza Typ A,B (EIA) Negative for flu a/b Ur L.pneumophila Ag 12/11/17 12/11/17 12/12/17 05:10 05:10 10:00 WBC 15.0 H 21.6 H RBC 3.91 L 3.96 L Hgb 11.6 L 11.8 L Hct 35.8 35.5 MCV 91.6 89.7 MCH 29.7 29.9 MCHC 32.4 L 33.3 RDW 16.9 H 16.2 H Plt Count 143 171 MPV 8.4 8.5 Neut % (Auto) 35.8 L 40.7 L Lymph % (Auto) 16.0 L 16.9 L Early % (Auto) 5.8 5.3 Eos % (Auto) 42.0 H 36.7 H Baso % (Auto) 0.4 0.4 Neut # (Auto) 5.4 8.8 H Lymph # (Auto) 2.4 3.7 Early # (Auto) 0.9 H 1.2 H Eos # (Auto) 6.3 H 7.9 H Baso # (Auto) 0.1 0.1 Total Counted Cancelled Neutrophils % (Manual) 41 L Cancelled Band Neutrophils % 3 H Cancelled Lymphocytes % (Manual) 11 L Cancelled Reactive Lymphs % Cancelled Monocytes % (Manual) 5 Cancelled Eosinophils % (Manual) 39 H Cancelled Basophils % (Manual) 1 Cancelled Metamyelocytes % Cancelled Myelocytes % Cancelled Promyelocytes % Cancelled Blast Cells % Cancelled Plasma Cell % (Manual) Cancelled Nucleated RBC % Cancelled Hypersegmented Polys Cancelled Smudge Cells Cancelled Toxic Granulation Cancelled Dohle Bodies Cancelled Yelena Rods Cancelled Platelet Estimate Normal Cancelled Plt Clumps, EDTA Cancelled Large Platelets Cancelled Giant Platelets Cancelled RBC Morphology Cancelled Polychromasia Cancelled Hypochromasia (manual) Cancelled Poikilocytosis (manual Cancelled Basophilic Stippling Cancelled Anisocytosis (manual) Slight Cancelled Microcytosis (manual) Cancelled Macrocytosis (manual) Cancelled Spherocytes Cancelled Sickle Cells Cancelled Target Cells Cancelled Tear Drop Cells Cancelled Ovalocytes Cancelled Stomatocytes Cancelled Helmet Cells Cancelled Cho-[place] Bodies Cancelled Breanna Cells Cancelled Acanthocytes (Spur) Cancelled Rouleaux Cancelled Schistocytes Cancelled pO2 VBG pH VBG pCO2 VBG HCO3 VBG Total CO2 VBG O2 Sat (Calc) VBG Base Excess VBG Potassium Sodium 143 Chloride 108 H Glucose Lactate FiO2 Potassium 4.5 Carbon Dioxide 24 Anion Gap 16 BUN 14 Creatinine 1.9 H Est GFR ( Amer) 47 Est GFR (Non-Af Amer) 39 Random Glucose 73 L Calcium 8.0 L Total Bilirubin 0.6 Direct Bilirubin 0.3 AST 73 H D ALT 120 H Alkaline Phosphatase 602 H Total Creatine Kinase 86 Troponin I NT-Pro-B Natriuret Pep 9100 H Total Protein 6.3 Albumin 2.6 L D Globulin 3.7 Albumin/Globulin Ratio 0.7 L Triglycerides 76 Cholesterol 137 LDL Cholesterol Direct 80 HDL Cholesterol 25 L Lipase 24 Procalcitonin Venous Blood Potassium Hepatitis A IgM Ab Hep Bs Antigen Hep B Core IgM Ab Hepatitis C Antibody Influenza Typ A,B (EIA) Ur L.pneumophila Ag 12/12/17 12/12/17 10:00 10:00 WBC RBC Hgb Hct MCV MCH MCHC RDW Plt Count MPV Neut % (Auto) Lymph % (Auto) Early % (Auto) Eos % (Auto) Baso % (Auto) Neut # (Auto) Lymph # (Auto) Early # (Auto) Eos # (Auto) Baso # (Auto) Total Counted Neutrophils % (Manual) Band Neutrophils % Lymphocytes % (Manual) Reactive Lymphs % Monocytes % (Manual) Eosinophils % (Manual) Basophils % (Manual) Metamyelocytes % Myelocytes % Promyelocytes % Blast Cells % Plasma Cell % (Manual) Nucleated RBC % Hypersegmented Polys Smudge Cells Toxic Granulation Dohle Bodies Yelena Rods Platelet Estimate Plt Clumps, EDTA Large Platelets Giant Platelets RBC Morphology Polychromasia Hypochromasia (manual) Poikilocytosis (manual Basophilic Stippling Anisocytosis (manual) Microcytosis (manual) Macrocytosis (manual) Spherocytes Sickle Cells Target Cells Tear Drop Cells Ovalocytes Stomatocytes Helmet Cells Cho-[place] Bodies [place] Cells Acanthocytes (Spur) Rouleaux Schistocytes pO2 VBG pH VBG pCO2 VBG HCO3 VBG Total CO2 VBG O2 Sat (Calc) VBG Base Excess VBG Potassium Sodium 132 Chloride 100 Glucose Lactate FiO2 Potassium 4.4 Carbon Dioxide 20 L Anion Gap 16 BUN 11 Creatinine 1.6 H Est GFR ( Amer) 57 Est GFR (Non-Af Amer) 47 Random Glucose 78 Calcium 8.1 L Total Bilirubin 1.1 Direct Bilirubin AST 81 H ALT 118 H Alkaline Phosphatase 865 H D Total Creatine Kinase Troponin I 0.8770 H* NT-Pro-B Natriuret Pep Total Protein 6.6 Albumin 2.7 L Globulin 3.9 Albumin/Globulin Ratio 0.7 L Triglycerides Cholesterol LDL Cholesterol Direct HDL Cholesterol Lipase Procalcitonin Venous Blood Potassium Hepatitis A IgM Ab Hep Bs Antigen Hep B Core IgM Ab Hepatitis C Antibody Influenza Typ A,B (EIA) Ur L.pneumophila Ag Microbiology 12/09/17 15:26 Blood-Venous Blood Culture - Preliminary NO GROWTH AFTER 48 HOURS 12/09/17 15:11 Blood-Venous Blood Culture - Preliminary NO GROWTH AFTER 48 HOURS 12/09/17 10:18 Urine,Clean Catch Urine Culture - Final No Growth (<1,000 CFU/ML) Accession No. 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 FINDINGS: LUNGS: Left upper lobe consolidation. Mild atelectatic changes seen in both lung bases. PLEURA: No significant pleural effusion identified, no pneumothorax apparent. CARDIOVASCULAR: Heart size is borderline enlarged which may in part be secondary to previously noted small pericardial effusion. OSSEOUS STRUCTURES: No significant abnormalities. VISUALIZED UPPER ABDOMEN: Normal. OTHER FINDINGS: None. IMPRESSION: Left upper lobe consolidation. Mild bibasilar atelectasis. Assessment and Plan (1) Pneumonia Status: Acute (2) Elevated liver enzymes Status: Acute (3) Pancreatitis Status: Acute (4) Leukocytosis Status: Acute (5) Fever Status: Acute - Assessment and Plan (Free Text) Assessment: A/p- 42 year old male admitted with multifocal pneumonia and also found to have elevated liver enzymes. febrile again last night leukocytosis has increeased and on diff is mostly eosinophils since admission elevated liver enzymes are trending down today but ALP remains high chest ct report- multifocal pneumonia urine legionella AG- negative abd ct- pancreatitis without psudocyst as per report. HIDA scan- no dcutal obstruction as per report cxr from today as per report- PAIGE consolidation 1. pneumonia 2.pancreatitis 3.asthma 4.leukocytosis with eosinophila 5.fever blood cx- neg x 2 urine cx- neg plan- check 2 more blood cx now. check CRP. advise to continue with IV vancomycin. keep vanco trough <15. advise to d/c iv zosyn. advise to start empiric meropenem pending further results. Eosinophilias could be secondary to asthma itself, also NSAIDS or cephalopsporins or aspirin and almost any medication can cause elevated eos. patient states has not traveled any tropical places. hepatitis panel was all negative. pancreatitis etiology unclear at this time. normal lipase high ALP. rule out ascending cholangitis. in light of the dark fluid vomiting he may need EGD and r/o GI bleed. IV fluids and pain management as per GI and primary team for pancreatitis. asthma management as per primary team. check sputum cx. d/w family practice resident advised to get medical records from [facility] to see what medications pt. was on at that hospital. All above d/w patient and he full understanding of all above and agrees with above plan of care. ICU time 50 minutes.
[2017-12-12] MEDS: Meropenem 1 GM in Sodium Chloride 0.9% 100 ML IVPB SCH (17:11)
--- NOTE | 2017-12-12 17:12 | CP.PCM.CON ---
History of Present Illness - History of Present Illness History of Present Illness: 42 YOM was admitted to [facility] with PNA and pancreatitis, an DIET CLERK was called for CP, which was of short duration and pt was managed , EKG was done and TNI, done and I was asked to evaluated the pt due to some T wave in lateral leads and slightly positive TNI, pt had no CP at the of my evaluation, but he has ST and leukocytosis was worsening, hence pt was transferred to ICU for close observation, due to NSTEMI, PNA and acute pancreatitis and ST. BP was stable , oxygen staturation was 100% on 2 L NS. Review of Systems - Review of Systems Systems not reviewed;Unavailable: Unstable Vital Signs - Constitutional Constitutional: As Per HPI - EENT Eyes: As Per HPI Ears: As Per HPI Nose/Mouth/Throat: As Per HPI - Cardiovascular Cardiovascular: Chest Pain - Respiratory Respiratory: Wheezing - Gastrointestinal Gastrointestinal: Abdominal Pain - Genitourinary Genitourinary: As Per HPI - Neurological Neurological: As Per HPI Past Patient History - Past Medical History & Family History Past Medical History?: Yes - Past Social History Smoking Status: Never Smoked Drugs: Denies Home Situation {Lives}: With Family - CARDIAC Hx Cardiac Disorders: No - PULMONARY Hx Respiratory Disorders: Yes Hx Asthma: Yes Hx Pneumonia: Yes - NEUROLOGICAL Hx Neurological Disorder: No - HEENT Hx HEENT Problems: No - RENAL Hx Chronic Kidney Disease: No - ENDOCRINE/METABOLIC Hx Endocrine Disorders: No - HEMATOLOGICAL/ONCOLOGICAL Hx Blood Disorders: No - INTEGUMENTARY Hx Dermatological Problems: No - MUSCULOSKELETAL/RHEUMATOLOGICAL Hx Musculoskeletal Disorders: No Hx Falls: No - GASTROINTESTINAL Hx Gastritis: Yes - GENITOURINARY/GYNECOLOGICAL Hx Genitourinary Disorders: No - PSYCHIATRIC Hx Psychophysiologic Disorder: No Hx Substance Use: No - SURGICAL HISTORY Hx Surgeries: Yes Other/Comment: leg surgery x2, right leg abscess removal - ANESTHESIA Hx Anesthesia: Yes Hx Anesthesia Reactions: No Meds Allergies/Adverse Reactions: Allergies Allergy/AdvReac Type Severity Reaction Status Date / Time No Known Allergies Allergy Verified 04/24/16 17:23 - Medications Medications: Current Medications Acetaminophen (Tylenol 325mg Tab) 650 mg PO Q6 PRN PRN Reason: Fever >100.4 F Last Admin: 12/12/17 08:13 Dose: 650 mg Acetaminophen (Tylenol 325mg Tab) 650 mg PO Q6 PRN PRN Reason: Pain, Mild (1-3) Albuterol Sulfate (Albuterol 0.083% Inhal Cassidy (2.5 Mg/3 Ml) Ud) 2.5 mg INH RQ6 PRN PRN Reason: Shortness of Breath Last Admin: 12/12/17 03:34 Dose: 2.5 mg Enoxaparin Sodium (Lovenox) 70 mg SC Q12 RUDDY PRN Reason: Protocol Vancomycin HCl 750 mg/ Sodium (Chloride) 250 mls @ 166.667 mls/hr IVPB DAILY RUDDY PRN Reason: Protocol Last Admin: 12/12/17 09:02 Dose: 166.667 mls/hr Lactated Ringer's (Lactated Ringer's) 1,000 mls @ 250 mls/hr IV .Q4H RUDDY Last Admin: 12/12/17 09:19 Dose: 250 mls/hr Meropenem 1 gm/ Sodium (Chloride) 100 mls @ 100 mls/hr IVPB Q8 RUDDY PRN Reason: Protocol Ipratropium [place] (Atrovent) 0.5 mg IH RQ6 [facility] Last Admin: 12/12/17 13:06 Dose: 0.5 mg Levalbuterol HCl (Xopenex) 0.63 mg INH RQ6 RUDDY Last Admin: 12/12/17 13:06 Dose: 0.63 mg Lidocaine (Lidoderm) 1 ea TD DAILY [facility] Last Admin: 12/12/17 08:17 Dose: 1 ea Morphine Sulfate (Morphine) 2 mg IVP Q4 PRN PRN Reason: Pain, moderate (4-7) Morphine Sulfate (Morphine) 4 mg IVP Q4 PRN PRN Reason: Pain, severe (8-10) Last Admin: 12/12/17 14:30 Dose: 4 mg Nitroglycerin (Nitrostat Sl Tab) 0.4 mg SL Q5M PRN PRN Reason: Pain, Mild (1-3) Last Admin: 12/12/17 06:43 Dose: 0.4 mg Fluticasone/Salmeterol (Advair Diskus 250/50) 1 puff IH Q12 RUDDY Last Admin: 12/12/17 08:17 Dose: 1 puff Physical Exam - Head Exam Head Exam: ATRAUMATIC - Eye Exam Eye Exam: Normal appearance - ENT Exam ENT Exam: Mucous Membranes Moist - Neck Exam Neck exam: Positive for: Full Rom - Respiratory Exam Respiratory Exam: Wheezes - Cardiovascular Exam Cardiovascular Exam: Tachycardia - GI/Abdominal Exam GI & Abdominal Exam: Soft - Rectal Exam Rectal Exam: Deferred Results - Vital Signs Recent Vital Signs: Last Vital Signs Temp 97.5 F L 12/12/17 12:00 Pulse 112 H 12/12/17 12:37 Resp 18 12/12/17 12:00 BP 111/76 12/12/17 12:37 Pulse Ox 92 L 12/12/17 12:00 - Labs Result Diagrams: 12/12/17 10:00 12/12/17 10:00 Labs: Laboratory Results - last 24 hr 12/11/17 12/12/17 12/12/17 17:15 10:00 10:00 WBC 21.6 H RBC 3.96 L Hgb 11.8 L Hct 35.5 MCV 89.7 MCH 29.9 MCHC 33.3 RDW 16.2 H Plt Count 171 MPV 8.5 Neut % (Auto) 40.7 L Lymph % (Auto) 16.9 L Brooks % (Auto) 5.3 Eos % (Auto) 36.7 H Baso % (Auto) 0.4 Neut # (Auto) 8.8 H Lymph # (Auto) 3.7 Brooks # (Auto) 1.2 H Eos # (Auto) 7.9 H Baso # (Auto) 0.1 Total Counted Cancelled Neutrophils % (Manual) Cancelled Band Neutrophils % Cancelled Lymphocytes % (Manual) Cancelled Reactive Lymphs % Cancelled Monocytes % (Manual) Cancelled Eosinophils % (Manual) Cancelled Basophils % (Manual) Cancelled Metamyelocytes % Cancelled Myelocytes % Cancelled Promyelocytes % Cancelled Blast Cells % Cancelled Plasma Cell % (Manual) Cancelled Nucleated RBC % Cancelled Hypersegmented Polys Cancelled Smudge Cells Cancelled Toxic Granulation Cancelled Dohle Bodies Cancelled Yelena Rods Cancelled Platelet Estimate Cancelled Plt Clumps, EDTA Cancelled Large Platelets Cancelled Giant Platelets Cancelled RBC Morphology Cancelled Polychromasia Cancelled Hypochromasia (manual) Cancelled Poikilocytosis (manual Cancelled Basophilic Stippling Cancelled Anisocytosis (manual) Cancelled Microcytosis (manual) Cancelled Macrocytosis (manual) Cancelled Spherocytes Cancelled Sickle Cells Cancelled Target Cells Cancelled Tear Drop Cells Cancelled Ovalocytes Cancelled Stomatocytes Cancelled Helmet Cells Cancelled [place] Bodies Cancelled Breanna Cells Cancelled Acanthocytes (Spur) Cancelled Rouleaux Cancelled Schistocytes Cancelled Sodium 132 Potassium 4.4 Chloride 100 Carbon Dioxide 20 L Anion Gap 16 BUN 11 Creatinine 1.6 H Est GFR ( Amer) 57 Est GFR (Non-Af Amer) 47 Random Glucose 78 Calcium 8.1 L Total Bilirubin 1.1 AST 81 H ALT 118 H Alkaline Phosphatase 865 H D Troponin I Total Protein 6.6 Albumin 2.7 L Globulin 3.9 Albumin/Globulin Ratio 0.7 L IgG Anti-Mitochondrial Ab Negative Anti-Smooth Muscle Ab Negative 12/12/17 12/12/17 10:00 11:20 WBC RBC Hgb Hct MCV MCH MCHC RDW Plt Count MPV Neut % (Auto) Lymph % (Auto) Brooks % (Auto) Eos % (Auto) Baso % (Auto) Neut # (Auto) Lymph # (Auto) Brooks # (Auto) Eos # (Auto) Baso # (Auto) Total Counted Neutrophils % (Manual) Band Neutrophils % Lymphocytes % (Manual) Reactive Lymphs % Monocytes % (Manual) Eosinophils % (Manual) Basophils % (Manual) Metamyelocytes % Myelocytes % Promyelocytes % Blast Cells % Plasma Cell % (Manual) Nucleated RBC % Hypersegmented Polys Smudge Cells Toxic Granulation Dohle Bodies Yelena Rods Platelet Estimate Plt Clumps, EDTA Large Platelets Giant Platelets RBC Morphology Polychromasia Hypochromasia (manual) Poikilocytosis (manual Basophilic Stippling Anisocytosis (manual) Microcytosis (manual) Macrocytosis (manual) Spherocytes Sickle Cells Target Cells Tear Drop Cells Ovalocytes Stomatocytes Helmet Cells [place] Bodies Breanna Cells Acanthocytes (Spur) Rouleaux Schistocytes Sodium Potassium Chloride Carbon Dioxide Anion Gap BUN Creatinine Est GFR ( Amer) Est GFR (Non-Af Amer) Random Glucose Calcium Total Bilirubin AST ALT Alkaline Phosphatase Troponin I 0.8770 H* Total Protein Albumin Globulin Albumin/Globulin Ratio IgG 1425.3 Anti-Mitochondrial Ab Anti-Smooth Muscle Ab Assessment & Plan - Assessment and Plan (Free Text) Assessment: ASSESSMENT AND PLAN 42 YOM admitted with fever and cough and has PNA , also has abdominal discomfort , CT and labs findings are CW acute pancreatitis. This afternoon he had an episode of CP with some questionable lateral T wave changes, inversion and slightly positive TNI, also has ST with HR 120/m , transferred to ICU for close observation, now two hours later, his HR is now 90/m and BP stable and no CP. 1-Acute Pancreatitis CT 12/11: findings compatible with acute pancreatitis. -Unclear etiology of pancreatitis at this time but meets criteria based on pain pattern and imaging findings - NPO - IV fluids LR 125ml/h - morphine 4 mg Q6 PRN for pain - GI Dr Smith consult appreciated, - f/u SHARONDA, AMA, ASMA, IgG level and IgG subclass 4 - Patient would likely benefit from elective EUS examination as outpatient following resolution of acute symptoms. - Will continue to monitor patient clinical course. - lipase 44 - lipid panel wnl 2- ACS---NSTEMI - I evaluated the patient in 4N, transferred to ICU, being monitored, now two hours later his HR is better and is stable , - Cardio consult Dr Patel appreciated -ASA 300 MD once -metoprolol 25 mg IV once - troponin x1 0.877 - EKG: ST-T inespecific changes from pervious one, sinus tachy, no improved - f/u serial troponin -BNP noted to be significantly elevated though echocardiogram unremarkable Patient on Lovenox treatment dose, as per resident, they consulted [employer]or [employer] Crushing and change lovenox from DVT prophylaxis dose to Rx dose. 3- PNEUMONIA : - ID Dr Swain ,following On meropenum and vancomycin - - Pulmonology consult Dr Esposito, appreciated. -- CBC wbc 21 trending up - procalcitonin 0.40 - f/u CBC - f/u Mycoplasma IgM, - Legionela neg - F/u blood cx negative - sputum culture pending - HIV pending 4- Asthma - PMH of Asthma - Duoneb Q4H ruddy - will monitor. 5- Transaminitis - AST/ALT 73/120 trending down, ALP 574. - ABD US: trace increased echogenicity surrounding portal triads diffusely. This can be seen with minimal degrees of the ascending cholangitis which may not have strong clinical symptoms. No intrahepatic bile duct dilatation. No gallstones. - HIDA: negative for ductal and gallblader stones. - Asymptomatic - hepatitis panel normal - will monitor 6- DVT prophylaxis - lovenox 70 mg sc BID
--- NOTE | 2017-12-12 19:25 | CP.PCM.CON ---
History of Present Illness - History of Present Illness History of Present Illness: 42 y/o with positive troponin. pt has denies cardiac risk factors. tele shows sinus tach with frequent ectopy. echo done several days ago reveal borderline decrease in ef for age. ekg show sinus tachycardia with decreased voltages compared to previous. trop o.8 x 2. he was admitted with abd pain and sob. pt treated for PNA for 1 month w/o resolution. currently pt with acute pancreatitis of unknown etiology, significant eosinophilia, continued f/c. no recent travel hx aside from visiting [place]. Review of Systems - Constitutional Constitutional: As Per HPI, Anorexia, Fatigue, Fever, Lethargy, Weakness. absent: Chills, Daytime Sleepiness, Excessive Sweating, Frequent Falls, Headache , Increased Appetite, Malaise, Night Sweats, Snoring, Sleep Apnea, Weight Gain, Weight Loss, Other - EENT Eyes: As Per HPI. absent: Blind Spots, Blurred Vision, Change in Vision, Decreased Night Vision, Diplopia, Discharge, Dry Eye, Exophthalmos, Floaters, Irritation, Itchy Eyes, Loss of Peripheral Vision, Pain, Photophobia, Requires Corrective Lenses, Sees Flashes, Spots in Vision, Tunnel Vision, Other Visual Disturbances, Loss of Vision, Other Ears: As Per HPI. absent: Decreased Hearing, Ear Discharge, Ear Pain, Tinnitus , Abnormal Hearing, Disequilibrium, Dizziness, Other Nose/Mouth/Throat: As Per HPI. absent: Epistaxis, Nasal Congestion, Nasal Discharge, Nasal Obstruction, Nasal Trauma, Nose Pain, Post Nasal Drip, Sinus Pain, Sinus Pressure, Bleeding Gums, Change in Voice, Dental Pain, Dry Mouth, Dysphagia, Halitosis, Hoarsness, Lip Swelling, Mouth Lesions, Mouth Pain, Odynophagia, Sore Throat, Throat Swelling, Tongue Swelling, Facial Pain, Neck Pain, Neck Mass, Other - Cardiovascular Cardiovascular: As Per HPI. absent: Acrocyanosis, Chest Pain, Chest Pain at Rest, Chest Pain with Activity, Claudication, Diaphoresis, Dyspnea, Dyspnea on Exertion, Edema, Irregular Heart Rhythm, Pain Radiating to Arm/Neck/Jaw, Leg Edema, Leg Ulcers, Lightheadedness, Orthopnea, Palpitations, Paroxysmal Nocturnal Dyspnea, Pedal Edema, Radiating Pain, Rapid Heart Rate, Slow Heart Rate, Syncope, Other - Respiratory Respiratory: Cough, Wheezing, Chest Congestion. absent: As Per HPI, Dyspnea, Hemoptysis, Dyspnea on Exertion, Snoring, Stridor, Pain on Inspiration, Excessive Mucous Production, Change in Mucous Color, Pain with Coughing, Other - Gastrointestinal Gastrointestinal: As Per HPI, Abdominal Pain. absent: Belching, Bloating, Change in Bowel Habits, Change in Stool Character, Coffee Ground Emesis, Constipation, Cramping, Diarrhea, Dyspepsia, Dysphagia, Early Satiety, Excessive Flatus, Fecal Incontinence, Heartburn, Hematemesis, Hematochezia, Loose Stools, Melena, Nausea, Odynophagia, Temesmus, Vomiting, Other - Genitourinary Genitourinary: As Per HPI. absent: Change in Urinary Stream, Difficulty Urinating, Dysuria, Flank Pain, Hematuria, Pyuria, Nocturia, Urinary Incontinence, Urinary Frequency, Urinary Hesitance, Urinary Urgency, Voiding Freq/Small Amts, Freq UTI, Hx Renal/Bladder Calculi, Hx /Renal Surgery, Bladder Distension, Other - Reproductive: Male Reproductive:Male: As Per HPI - Musculoskeletal Musculoskeletal: As Per HPI. absent: Abnormal Gait, Arthralgias, Atrophy, Back Pain, Deformity, Joint Swelling, Limited Range of Motion, Loss of Height, Muscle Cramps, Muscle Weakness, Myalgias, Neck Pain, Numbness, Radiating Pain into Limb, Stiffness, Tingling, Other - Integumentary Integumentary: As Per HPI. absent: Acne, Alopecia, Bleeding Lesions, Change in Hair, Change in Nails, Change in Pigmentation, Changing Lesions, Dry Skin, Erythema, Furuncle, Hirsutism, Lesions, New Lesions, Non-Healing Lesions, Photosensitivity, Pruritus, Rash, Skin Pain, Skin Ulcer, Sores, Striae, Swelling , Unusual Bruising, Wounds, Jaundice, Other - Neurological Neurological: As Per HPI. absent: Abnormal Gait, Abnormal Hearing, Abnormal Movements, Abnormal Speech, Behavioral Changes, Burning Sensations, Confusion, Convulsions, Disequilibrium, Dizziness, Numbness, Focal Weakness, Frequent Falls , Headaches, Lack of Coordination, Loss of Vision, Memory Loss, Paresthesias, Radicular Pain, Restless Legs, Sensory Deficit, Syncope, Tingling, Tremor, Vertigo, Weakness, Other Visual Disturbances, Other - Psychiatric Psychiatric: As Per HPI. absent: Abnormal Sleep Pattern, Anhedonia, Anxiety, Auditory Hallucinations, Behavioral Changes, Change in Appetite, Change in Libido, Confusion, Depression, Difficulty Concentrating, Hallucinations, Homicidal Ideation, Hopelessness, Irritability, Memory Loss, Mood Swings, Panic Attacks, Paranoia, Suicidal Ideation, Visual Hallucinations, Tactile Hallucinations, Other - Endocrine Endocrine: As Per HPI. absent: Change in Body Appearance, Change in Libido, Cold Intolorance, Deepening of Voice, Excessive Sweating, Fatigue, Flushing, Heat Intolorance, Increase in Ring/Shoe/Hat Size, Palpitations, Polydipsia, Polyphagia, Polyuria, Other - Hematologic/Lymphatic Hematologic: As Per HPI. absent: Easy Bleeding, Easy Bruising, Lymphadenopathy , Other Past Patient History - Past Medical History & Family History Past Medical History?: Yes - Past Social History Smoking Status: Never Smoked Chewing Tobacco Use: No Cigar Use: No Alcohol: Occasional Drugs: Denies Home Situation {Lives}: With Family - CARDIAC Hx Cardiac Disorders: No - PULMONARY Hx Respiratory Disorders: Yes Hx Asthma: Yes Hx Pneumonia: Yes - NEUROLOGICAL Hx Neurological Disorder: No - HEENT Hx HEENT Problems: No - RENAL Hx Chronic Kidney Disease: No - ENDOCRINE/METABOLIC Hx Endocrine Disorders: No - HEMATOLOGICAL/ONCOLOGICAL Hx Blood Disorders: No - INTEGUMENTARY Hx Dermatological Problems: No - MUSCULOSKELETAL/RHEUMATOLOGICAL Hx Musculoskeletal Disorders: No Hx Falls: No - GASTROINTESTINAL Hx Gastritis: Yes - GENITOURINARY/GYNECOLOGICAL Hx Genitourinary Disorders: No - PSYCHIATRIC Hx Psychophysiologic Disorder: No Hx Substance Use: No - SURGICAL HISTORY Hx Surgeries: Yes Other/Comment: leg surgery x2, right leg abscess removal - ANESTHESIA Hx Anesthesia: Yes Hx Anesthesia Reactions: No Meds Allergies/Adverse Reactions: Allergies Allergy/AdvReac Type Severity Reaction Status Date / Time No Known Allergies Allergy Verified 04/24/16 17:23 - Medications Medications: Current Medications Acetaminophen (Tylenol 325mg Tab) 650 mg PO Q6 PRN PRN Reason: Fever >100.4 F Last Admin: 12/12/17 08:13 Dose: 650 mg Acetaminophen (Tylenol 325mg Tab) 650 mg PO Q6 PRN PRN Reason: Pain, Mild (1-3) Albuterol Sulfate (Albuterol 0.083% Inhal Cassidy (2.5 Mg/3 Ml) Ud) 2.5 mg INH RQ6 PRN PRN Reason: Shortness of Breath Last Admin: 12/12/17 03:34 Dose: 2.5 mg Enoxaparin Sodium (Lovenox) 70 mg SC Q12 [facility]EL PRN Reason: Protocol Vancomycin HCl 750 mg/ Sodium (Chloride) 250 mls @ 166.667 mls/hr IVPB DAILY DARIEL PRN Reason: Protocol Last Admin: 12/12/17 09:02 Dose: 166.667 mls/hr Lactated Ringer's (Lactated Ringer's) 1,000 mls @ 250 mls/hr IV .Q4H DARIEL Last Admin: 12/12/17 09:19 Dose: 250 mls/hr Meropenem 1 gm/ Sodium (Chloride) 100 mls @ 100 mls/hr IVPB Q8 [facility]AR[facility]EL PRN Reason: Protocol Last Admin: 12/12/17 17:11 Dose: 100 mls/hr Ipratropium [place] (Atrovent) 0.5 mg IH RQ6 [facility] Last Admin: 12/12/17 19:22 Dose: 0.5 mg Levalbuterol HCl (Xopenex) 0.63 mg INH RQ6 [facility] Last Admin: 12/12/17 19:21 Dose: 0.63 mg Lidocaine (Lidoderm) 1 ea TD DAILY [facility] Last Admin: 12/12/17 08:17 Dose: 1 ea Morphine Sulfate (Morphine) 2 mg IVP Q4 PRN PRN Reason: Pain, moderate (4-7) Morphine Sulfate (Morphine) 4 mg IVP Q4 PRN PRN Reason: Pain, severe (8-10) Last Admin: 12/12/17 18:28 Dose: 4 mg Nitroglycerin (Nitrostat Sl Tab) 0.4 mg SL Q5M PRN PRN Reason: Pain, Mild (1-3) Last Admin: 12/12/17 06:43 Dose: 0.4 mg Fluticasone/Salmeterol (Advair Diskus 250/50) 1 puff IH Q12 [facility] Last Admin: 12/12/17 08:17 Dose: 1 puff Physical Exam - Constitutional Appears: Toxic - Head Exam Head Exam: ATRAUMATIC, NORMAL INSPECTION, NORMOCEPHALIC - Eye Exam Eye Exam: EOMI, Normal appearance, PERRL. absent: Conjunctival injection, Nystagmus, Periorbital swelling, Periorbital tenderness, Scleral icterus Pupil Exam: NORMAL ACCOMODATION, PERRL. absent: Fixed, Irregular, Miosis, Mydriatic, Unequal - ENT Exam ENT Exam: Mucous Membranes Moist, Normal Exam. absent: Mucous Membranes Dry, Normal External Ear Exam, Normal Oropharynx, TM's Normal Bilaterally - Neck Exam Neck exam: Positive for: Normal Inspection. Negative for: Full Rom, Lymphadenopathy, Meningismus, Tenderness, Thyromegaly - Respiratory Exam Respiratory Exam: Rales, Rhonchi, Wheezes. absent: Accessory Muscle Use, Chest Wall Tenderness, Decreased Breath Sounds, Clear to Auscultation Bilateral, Prolonged Expiratory Phase, Respiratory Distress, Stridor, NORMAL BREATHING PATTERN Additional comments: insp crackles and rhonchi l>r exp wheeze - Cardiovascular Exam Cardiovascular Exam: Tachycardia, +S1, +S2, Systolic Murmur. absent: Bradycardia, Clicks, Diastolic murmur, Gallop, Irregular Rhythm, REGULAR RHYTHM , JVD, RRR, Rubs, +S4 - GI/Abdominal Exam GI & Abdominal Exam: Distended, Normal Bowel Sounds, Soft, Tenderness. absent: Bruit, Diminished Bowel Sounds, Firm, Guarding, Hernia, Hyperactive Bowel Sounds , Hypoactive Bowel Sounds, Mass, Organomegaly, Pulsatile Mass, Rebound, Rigid - Extremities Exam Extremities exam: Positive for: normal inspection. Negative for: calf tenderness, full ROM, joint swelling, normal capillary refill, pedal edema, tenderness, pedal pulses present - Back Exam Back exam: NORMAL INSPECTION. absent: CVA tenderness (L), CVA tenderness (R), FULL ROM, muscle spasm, paraspinal tenderness, rash noted, tenderness, vertebral tenderness - Neurological Exam Neurological exam: Alert, CN II-XII Intact, Oriented x3, Reflexes Normal - Psychiatric Exam Psychiatric exam: Normal Affect, Normal Mood - Skin Skin Exam: Dry, Intact, Normal Color, Warm Results - Vital Signs Recent Vital Signs: Last Vital Signs Temp 97.5 F L 12/12/17 12:00 Pulse 112 H 12/12/17 12:37 Resp 18 12/12/17 12:00 BP 111/76 12/12/17 12:37 Pulse Ox 92 L 12/12/17 12:00 - Labs Result Diagrams: 12/12/17 10:00 12/12/17 10:00 Labs: Laboratory Results - last 24 hr 12/11/17 12/12/17 12/12/17 17:15 10:00 10:00 WBC 21.6 H RBC 3.96 L Hgb 11.8 L Hct 35.5 MCV 89.7 MCH 29.9 MCHC 33.3 RDW 16.2 H Plt Count 171 MPV 8.5 Neut % (Auto) 40.7 L Lymph % (Auto) 16.9 L [place] % (Auto) 5.3 Eos % (Auto) 36.7 H Baso % (Auto) 0.4 Neut # (Auto) 8.8 H Lymph # (Auto) 3.7 [place] # (Auto) 1.2 H Eos # (Auto) 7.9 H Baso # (Auto) 0.1 Total Counted Cancelled Neutrophils % (Manual) Cancelled Band Neutrophils % Cancelled Lymphocytes % (Manual) Cancelled Reactive Lymphs % Cancelled Monocytes % (Manual) Cancelled Eosinophils % (Manual) Cancelled Basophils % (Manual) Cancelled Metamyelocytes % Cancelled Myelocytes % Cancelled Promyelocytes % Cancelled Blast Cells % Cancelled Plasma Cell % (Manual) Cancelled Nucleated RBC % Cancelled Hypersegmented Polys Cancelled Smudge Cells Cancelled Toxic Granulation Cancelled Dohle Bodies Cancelled Yelena Rods Cancelled Platelet Estimate Cancelled Plt Clumps, EDTA Cancelled Large Platelets Cancelled Giant Platelets Cancelled RBC Morphology Cancelled Polychromasia Cancelled Hypochromasia (manual) Cancelled Poikilocytosis (manual Cancelled Basophilic Stippling Cancelled Anisocytosis (manual) Cancelled Microcytosis (manual) Cancelled Macrocytosis (manual) Cancelled Spherocytes Cancelled Sickle Cells Cancelled Target Cells Cancelled Tear Drop Cells Cancelled Ovalocytes Cancelled Stomatocytes Cancelled Helmet Cells Cancelled Cho-Higden Bodies Cancelled Breanna Cells Cancelled Acanthocytes (Spur) Cancelled Rouleaux Cancelled Schistocytes Cancelled Sodium 132 Potassium 4.4 Chloride 100 Carbon Dioxide 20 L Anion Gap 16 BUN 11 Creatinine 1.6 H Est GFR ( Amer) 57 Est GFR (Non-Af Amer) 47 Random Glucose 78 Calcium 8.1 L Total Bilirubin 1.1 AST 81 H ALT 118 H Alkaline Phosphatase 865 H D Troponin I Total Protein 6.6 Albumin 2.7 L Globulin 3.9 Albumin/Globulin Ratio 0.7 L IgG Anti-Mitochondrial Ab Negative Anti-Smooth Muscle Ab Negative 04/03/2412/12/17 12/12/17 10:00 11:20 18:40 WBC RBC Hgb Hct MCV MCH MCHC RDW Plt Count MPV Neut % (Auto) Lymph % (Auto) [place] % (Auto) Eos % (Auto) Baso % (Auto) Neut # (Auto) Lymph # (Auto) [place] # (Auto) Eos # (Auto) Baso # (Auto) Total Counted Neutrophils % (Manual) Band Neutrophils % Lymphocytes % (Manual) Reactive Lymphs % Monocytes % (Manual) Eosinophils % (Manual) Basophils % (Manual) Metamyelocytes % Myelocytes % Promyelocytes % Blast Cells % Plasma Cell % (Manual) Nucleated RBC % Hypersegmented Polys Smudge Cells Toxic Granulation Dohle Bodies Yelena Rods Platelet Estimate Plt Clumps, EDTA Large Platelets Giant Platelets RBC Morphology Polychromasia Hypochromasia (manual) Poikilocytosis (manual Basophilic Stippling Anisocytosis (manual) Microcytosis (manual) Macrocytosis (manual) Spherocytes Sickle Cells Target Cells Tear Drop Cells Ovalocytes Stomatocytes Helmet Cells Cho-Higden Bodies Breanna Cells Acanthocytes (Spur) Rouleaux Schistocytes Sodium Potassium Chloride Carbon Dioxide Anion Gap BUN Creatinine Est GFR ( Amer) Est GFR (Non-Af Amer) Random Glucose Calcium Total Bilirubin AST ALT Alkaline Phosphatase Troponin I 0.8770 H* 0.8390 H* Total Protein Albumin Globulin Albumin/Globulin Ratio IgG 1425.3 Anti-Mitochondrial Ab Anti-Smooth Muscle Ab - EKG Data EKG Interpreted by: Myself EKG shows normal: Sinus rhythm Rate: Tachycardia - EKG Data When Compared to Previous EKG: Significant Changes Assessment & Plan (1) Elevated troponin Status: Acute Comment: trop may be secondary to ARF. would trend. use asa and lovenox for the time being. repeat echo to eval for wall motion changes and or pericardial disease. (2) ARF (acute renal failure) Status: Acute Comment: consider renal us. d/c ivf at 250cc/hr (3) Eosinophilia Status: Acute Comment: stool for ova parasites (4) RTI (respiratory tract infection) Status: Acute Comment: consider bronchoscopy with cultures. (5) Abnormal EKG Status: Acute (6) Elevated liver enzymes Status: Acute (7) Pancreatitis Status: Acute (8) Malnutrition Status: Acute Comment: would consider nutrition consult and tpn given low albumin
[2017-12-12] MEDS ORDERED: Magnesium Sulfate 2 gm/50 ml 2 GM/50 ML BAG IV ONE (21:00)
[2017-12-12] MEDS: Enoxaparin 80 mg Syringe SC SCH (21:42)
[2017-12-12] MEDS ORDERED: Nitroglycerin 2% 15 INCH/30 GM TUBE TOP STA (22:02)
[2017-12-12] MEDS ORDERED: Nitroglycerin 2% Ointment Foilpak UD TOP ONE (22:04)
[2017-12-12] MEDS ORDERED: Nitroglycerin 2% Ointment Foilpak UD TOP STA (22:13)
[2017-12-12 23:07] LABS: URINE BACTERIA RARE (<OCC)
[2017-12-12 23:29] LABS: URINE BILIRUBIN NEGATIVE (NEGATIVE); URINE BLOOD TRACE-INTACT (NEGATIVE); URINE CLARITY Clear (Clear); URINE COLOR YELLOW (YELLOW); URINE GLUCOSE (UA) NEGATIVE (Normal)
[2017-12-12 23:30] LABS: URINE LEUKOCYTE ESTERASE Negative Leu/uL (Negative); URINE PROTEIN 30 mg/dL (NEGATIVE); URINE UROBILINOGEN 0.2 mg/dL (0.2-1.0)
[2017-12-12 23:31] LABS: SQUAMOUS EPITHIAL < 1 /hpf (0-5); URINE HYALINE CAST 1 /hpf (0-2)
[2017-12-13] MEDS: Meropenem 1 GM in Sodium Chloride 0.9% 100 ML IVPB SCH ×3 (00:11→16:32)
[2017-12-13] MEDS: Ipratropium 0.02% Inhal Soln (0.5 mg/2.5 ml) UD IH SCH ×4 (01:00→19:06)
[2017-12-13] MEDS: Levalbuterol 0.63 MG/3 ML Inhal Soln UD INH SCH ×4 (01:00→19:06)
[2017-12-13] MEDS: Morphine 4 MG/ML VIAL IVP PRN ×5 (03:20→22:48)
[2017-12-13] MEDS: Albuterol 0.083% Inhal Sol (2.5 mg/3 mL) UD INH PRN (06:02)
[2017-12-13 06:07] LABS: HEMOGLOBIN 11.4 g/dL (12.0-18.0); MEAN CORPUSCULAR HEMOGLOBIN 29.8 pg (27.0-31.0); MEAN CORPUSCULAR HGB CONC 33.1 g/dL (33.0-37.0); RBC 3.82 Mil/uL (4.40-5.90); RED CELL DISTRIBUTION WIDTH 16.3 % (11.5-14.5); WHITE BLOOD COUNT 21.6 K/uL (4.8-10.8)
[2017-12-13 06:52] LABS: ALB/GLOB RATIO 0.7 (1.0-2.1); ALBUMIN 2.7 g/dL (3.5-5.0); ALT/SGPT 105 U/L (21-72); AST/SGOT 83 U/L (17-59); BLOOD UREA NITROGEN 13 mg/dl (9-20); CALCIUM 8.1 mg/dL (8.4-10.2); GFR AFRICAN-AMERICAN > 60; GFR NON-AFRICAN AMERICAN > 60
--- NOTE | 2017-12-13 07:54 | CP.PCM.PN ---
<Pradeep Arreaga - Last Filed: 12/13/17 09:03> Subjective - Date & Time of Evaluation Date of Evaluation: 12/13/17 Time of Evaluation: 06:45 - Subjective Subjective: PGY5 GI Fellow Progress Note Patient seen and examined bedside this morning. The patient states that he has had severe epigastric pain overnight which is preventing him from sleeping but he is concerned about continuing to use morphine. Also admits to substernal chest pain overnight which resolved with rest. Eager to have liquids. Separately , admits that he used to use anabolic steroids. Currently, having significant epigastric abdominal pain. 12 system ROS performed and negative except where stated. Objective - Vital Signs/Intake and Output Vital Signs (last 24 hours): Temp Pulse Resp BP Pulse Ox 100.2 F H 121 H 19 111/85 97 12/13/17 06:00 12/13/17 06:00 12/13/17 06:00 12/13/17 06:00 12/13/17 06:00 Intake and Output: 12/13/17 12/13/17 06:59 18:59 Intake Total 293 Output Total 925 Balance -632 - Medications Medications: Current Medications Acetaminophen (Tylenol 325mg Tab) 650 mg PO Q6 PRN PRN Reason: Fever >100.4 F Last Admin: 12/12/17 08:13 Dose: 650 mg Acetaminophen (Tylenol 325mg Tab) 650 mg PO Q6 PRN PRN Reason: Pain, Mild (1-3) Albuterol Sulfate (Albuterol 0.083% Inhal Cassidy (2.5 Mg/3 Ml) Ud) 2.5 mg INH RQ6 PRN PRN Reason: Shortness of Breath Last Admin: 12/13/17 06:02 Dose: 2.5 mg Enoxaparin Sodium (Lovenox) 70 mg SC Q12 DARIEL PRN Reason: Protocol Last Admin: 12/12/17 21:42 Dose: 70 mg Vancomycin HCl 750 mg/ Sodium (Chloride) 250 mls @ 166.667 mls/hr IVPB DAILY DARIEL PRN Reason: Protocol Last Admin: 12/12/17 09:02 Dose: 166.667 mls/hr Meropenem 1 gm/ Sodium (Chloride) 100 mls @ 100 mls/hr IVPB Q8 DAIREL PRN Reason: Protocol Last Admin: 12/13/17 00:11 Dose: 100 mls/hr Ipratropium [place] (Atrovent) 0.5 mg IH RQ6 [facility] Last Admin: 12/13/17 07:48 Dose: 0.5 mg Levalbuterol HCl (Xopenex) 0.63 mg INH RQ6 [facility] Last Admin: 12/13/17 07:49 Dose: 0.63 mg Lidocaine (Lidoderm) 1 ea TD DAILY [facility] Last Admin: 12/12/17 08:17 Dose: 1 ea Morphine Sulfate (Morphine) 2 mg IVP Q4 PRN PRN Reason: Pain, moderate (4-7) Morphine Sulfate (Morphine) 4 mg IVP Q4 PRN PRN Reason: Pain, severe (8-10) Last Admin: 12/13/17 03:20 Dose: 4 mg Nitroglycerin (Nitrostat Sl Tab) 0.4 mg SL Q5M PRN PRN Reason: Pain, Mild (1-3) Last Admin: 12/12/17 06:43 Dose: 0.4 mg Fluticasone/Salmeterol (Advair Diskus 250/50) 1 puff IH Q12 [facility] Last Admin: 12/12/17 21:44 Dose: 1 puff - Labs Labs: 12/13/17 04:45 12/13/17 04:45 - Constitutional Appears: In Acute Distress (pain), Other (uncomfortable) - Eye Exam Eye Exam: EOMI, PERRL - ENT Exam ENT Exam: Mucous Membranes Dry - Respiratory Exam Respiratory Exam: Rales, Wheezes. absent: Clear to Ausculation Bilateral, Rhonchi - Cardiovascular Exam Cardiovascular Exam: Tachycardia, +S1, +S2 - GI/Abdominal Exam GI & Abdominal Exam: Guarding, Soft, Tenderness (epigastric, RUQ, LUQ), Hypoactive Bowel Sounds. absent: Distended, Firm, Rigid, Organomegaly - Extremities Exam Extremities Exam: absent: Normal Inspection Additional comments: 1+ LE edema - Neurological Exam Neurological Exam: Alert, Awake, Oriented x3 - Psychiatric Exam Psychiatric exam: Normal Affect, Normal Mood - Skin Skin Exam: Dry, Warm Assessment and Plan - Assessment and Plan (Free Text) Assessment: Patient is a 42yo male with PMHx significant for severe asthma, vitiligo who presented to the ED on December 09 with abdominal pain for 4 days. -Acute pancreatitis -Multifocal HCAP -Abnormal LFTs -Chest pain -Severe asthma s/p thermoplasty in August 2017 -Eosinophilia -H/O anabolic steroid abuse Plan: -Advance to liquid diet as tolerated -Continues to have epigastric pain and substernal CP, check EKG now given tele findings and chest pain -Cardiology consultation appreciated - recommend repeat echocardiogram -Patient has significant eosinophilia on CBC differential (36% when normal is 4% ) - given worsening of asthma, unexplained pancreatitis and chest pain (? myocarditis) with elevated BNP/+troponin - consider possibility of systemic vasculitis such as Churg-Cristopher -Check ANCA screen, may benefit from rheumatology consultation if positive -Check CPK -SHARONDA pending; AMA, ASMA negative, IgG WNL -Hepatitis serologies negative -Check alkaline phosphatase isoenzymes -On vancomycin and meropenem -IVF have been discontinued -Analgesia per primary service -Continue supportive care <Shilo Smith - Last Filed: 12/13/17 09:19> Objective - Vital Signs/Intake and Output Vital Signs (last 24 hours): Temp Pulse Resp BP Pulse Ox 100.2 F H 121 H 19 111/85 97 12/13/17 06:00 12/13/17 06:00 12/13/17 06:00 12/13/17 06:00 12/13/17 06:00 Intake and Output: 12/13/17 12/13/17 06:59 18:59 Intake Total 293 Output Total 925 Balance -632 - Medications Medications: Current Medications Acetaminophen (Tylenol 325mg Tab) 650 mg PO Q6 PRN PRN Reason: Fever >100.4 F Last Admin: 12/12/17 08:13 Dose: 650 mg Acetaminophen (Tylenol 325mg Tab) 650 mg PO Q6 PRN PRN Reason: Pain, Mild (1-3) Aspirin (Aspirin Chewable) 81 mg PO DAILY DARIEL Enoxaparin Sodium (Lovenox) 70 mg SC Q12 DARIEL PRN Reason: Protocol Last Admin: 12/12/17 21:42 Dose: 70 mg Vancomycin HCl 750 mg/ Sodium (Chloride) 250 mls @ 166.667 mls/hr IVPB DAILY DARIEL PRN Reason: Protocol Last Admin: 12/12/17 09:02 Dose: 166.667 mls/hr Meropenem 1 gm/ Sodium (Chloride) 100 mls @ 100 mls/hr IVPB Q8 DARIEL PRN Reason: Protocol Last Admin: 12/13/17 00:11 Dose: 100 mls/hr Ipratropium [place] (Atrovent) 0.5 mg IH RQ6 [facility] Levalbuterol HCl (Xopenex) 0.63 mg INH RQ6 [facility] Last Admin: 12/13/17 07:49 Dose: 0.63 mg Lidocaine (Lidoderm) 1 ea TD DAILY [facility] Last Admin: 12/12/17 08:17 Dose: 1 ea Metoprolol Tartrate (Lopressor) 25 mg PO Q12 [facility]ARIEL Morphine Sulfate (Morphine) 2 mg IVP Q4 PRN PRN Reason: Pain, moderate (4-7) Morphine Sulfate (Morphine) 4 mg IVP Q4 PRN PRN Reason: Pain, severe (8-10) Last Admin: 12/13/17 03:20 Dose: 4 mg Nitroglycerin (Nitrostat Sl Tab) 0.4 mg SL Q5M PRN PRN Reason: Pain, Mild (1-3) Last Admin: 12/12/17 06:43 Dose: 0.4 mg Fluticasone/Salmeterol (Advair Diskus 250/50) 1 puff IH Q12 [facility]ARIEL Last Admin: 12/12/17 21:44 Dose: 1 puff - Labs Labs: 12/13/17 04:45 12/13/17 04:45 Attending/Attestation - Attestation I have personally seen and examined this patient.: Yes I have fully participated in the care of the patient.: Yes I have reviewed all pertinent clinical information, including history, physical exam and plan: Yes Notes (Text): 12/13/17 09:14 I have seen and examined patient with GI fellow. He is now transferred to critical care unit following rapid response yesterday. No acute events overnight, he continues to endorse dyspnea, chest pain, and sharp epigastric abdominal pain. He denies vomiting, diarrhea. Tolerating PO liquids without difficulty. Review of vitals from today shows low grade temperature of 100.2, tachycardia. Asthma Vitiligo Dyspnea - multifocal pneumonia Chest pain - elevated troponin and BMP Abdominal pain - acute pancreatitis of unclear etiology - Liquid diet as tolerated - Continue with IVF hydration, pain control - Continue with antibiotic therapy as per ID - Follow up cardiac recommendations given recent decompensation, suggest repeat echocardiogram - Given significant elevation in peripheral eosinophilia, would consider systemic vasculitis workup - Will continue to monitor patient clinical course
[2017-12-13] MEDS ORDERED: Metoprolol 1 mg/ml Inj IVP ONE (08:40)
--- NOTE | 2017-12-13 08:56 | CP.CCUPN ---
CCU Subjective - Physician Review Events Since Last Encounter (Free Text): 12/13/17 08:49 Alert , awake and oriented, still has abdominal pain, no SOB, still has ST 120/m , no fever. TNI is a bit higher, was seen by test specialist, recommendations appreciated, also seen by GI and discussed with GI fellow. On IVF, creatinine is better. CCU Objective - Vital Signs / Intake & Output Vital Signs (Last 4 hours): Vital Signs Temp Pulse Resp BP Pulse Ox 12/13/17 06:00 100.2 F H 121 H 19 111/85 97 Intake and Output (Last 8hrs): Intake & Output 12/12/17 12/13/17 12/13/17 22:59 06:59 14:59 Intake Total 175 118 Output Total 375 550 Balance -200 -432 Intake: IV 125 18 Intake, Piggyback 50 100 Output: Urine 375 550 Urine, Voided 375 550 - Physical Exam Narrative Physical Exam (Free Text): 12/13/17 08:51 P/E Neck: No JVD Lungs: few scattered ronchi Abdomen: mild generalized tenderness, no RT, BS +ve Ext; No edema Heart: No gallop - Medications Active Medications: Active Medications Generic Name Dose Route Start Last Admin Trade Name Freq PRN Reason Stop Dose Admin Acetaminophen 650 mg 12/09/17 18:08 12/12/17 08:13 Tylenol 325mg Tab PO 650 mg Q6 PRN Administration Fever >100.4 F Acetaminophen 650 mg 12/11/17 07:00 Tylenol 325mg Tab PO Q6 PRN Pain, Mild (1-3) Aspirin 81 mg 12/13/17 09:00 Aspirin Chewable PO DAILY DARIEL Enoxaparin Sodium 70 mg 12/12/17 12:18 12/12/17 21:42 Lovenox SC 70 mg Q12 DARIEL Administration Protocol Vancomycin HCl 750 mg/ Sodium 250 mls @ 166.667 mls/hr 12/12/17 09:00 09:02 Chloride IVPB 166.667 mls/hr DAILY DARIEL Administration Protocol Meropenem 1 gm/ Sodium 100 mls @ 100 mls/hr 12/12/17 17:00 12/13/17 00:11 Chloride IVPB 100 mls/hr Q8 DARIEL Administration Protocol Ipratropium [place] 0.5 mg 12/13/17 14:00 Atrovent IH RQ6 DARIEL Levalbuterol HCl 0.63 mg 12/12/17 08:00 12/13/17 07:49 Xopenex INH 0.63 mg RQ6 DARIEL Administration Lidocaine 1 ea 12/10/17 10:00 12/12/17 08:17 Lidoderm TD 1 ea DAILY DARIEL Administration Metoprolol Tartrate 25 mg 12/13/17 09:00 Lopressor PO Q12 DARIEL Morphine Sulfate 2 mg 12/11/17 15:26 Morphine IVP Q4 PRN Pain, moderate (4-7) Morphine Sulfate 4 mg 12/11/17 15:26 12/13/17 03:20 Morphine IVP 4 mg Q4 PRN Administration Pain, severe (8-10) Nitroglycerin 0.4 mg 12/12/17 06:32 12/12/17 06:43 Nitrostat Sl Tab SL 0.4 mg Q5M PRN Administration Pain, Mild (1-3) Fluticasone/Salmeterol 1 puff 12/10/17 21:00 12/12/17 21:44 Advair Diskus 250/50 IH 1 puff Q12 DARIEL Administration - Patient Studies Lab Studies: Microbiology Studies 12/09/17 15:26 Blood Culture - Preliminary Blood-Venous NO GROWTH AFTER 3 DAYS 12/09/17 15:11 Blood Culture - Preliminary Blood-Venous NO GROWTH AFTER 3 DAYS Lab Studies 12/13/17 12/13/17 12/12/17 Range/Units 04:45 04:45 22:10 WBC 21.6 H (4.8-10.8) K/uL RBC 3.82 L (4.40-5.90) Mil/uL Hgb 11.4 L (12.0-18.0) g/dL Hct 34.4 L (35.0-51.0) % MCV 90.0 (80.0-94.0) fl MCH 29.8 (27.0-31.0) pg MCHC 33.1 (33.0-37.0) g/dL RDW 16.3 H (11.5-14.5) % Plt Count 199 (130-400) K/uL MPV (7.2-11.7) fl Neut % (Auto) (50.0-75.0) % Lymph % (Auto) (20.0-40.0) % [place] % (Auto) (0.0-10.0) % Eos % (Auto) (0.0-4.0) % Baso % (Auto) (0.0-2.0) % Neut # (Auto) (1.8-7.0) K/uL Lymph # (Auto) (1.0-4.3) K/uL [place] # (Auto) (0.0-0.8) K/uL Eos # (Auto) (0.0-0.7) K/uL Baso # (Auto) (0.0-0.2) K/uL Total Counted Neutrophils % (Manual) Band Neutrophils % Lymphocytes % (Manual) Reactive Lymphs % Monocytes % (Manual) Eosinophils % (Manual) Basophils % (Manual) Metamyelocytes % Myelocytes % Promyelocytes % Blast Cells % Plasma Cell % (Manual) Nucleated RBC % Hypersegmented Polys Smudge Cells Toxic Granulation Dohle Bodies Yelena Rods Platelet Estimate Plt Clumps, EDTA Large Platelets Giant Platelets RBC Morphology Polychromasia Hypochromasia (manual) Poikilocytosis (manual Basophilic Stippling Anisocytosis (manual) Microcytosis (manual) Macrocytosis (manual) Spherocytes Sickle Cells Target Cells Tear Drop Cells Ovalocytes Stomatocytes Helmet Cells [place] Bodies Breanna Cells Acanthocytes (Spur) Rouleaux Schistocytes Sodium 131 L (132-148) mmol/l Potassium 5.3 H (3.6-5.0) MMOL/L Chloride 96 L (98-107) mmol/L Carbon Dioxide 22 (22-30) mmol/L Anion Gap 18 (10-20) BUN 13 (9-20) mg/dl Creatinine 1.3 (0.8-1.5) mg/dl Est GFR ( Amer) > 60 Est GFR (Non-Af Amer) > 60 Random Glucose 55 L (75-110) mg/dL Calcium 8.1 L (8.4-10.2) mg/dL Total Bilirubin 0.8 (0.2-1.3) mg/dl AST 83 H (17-59) U/L ALT 105 H (21-72) U/L Alkaline Phosphatase 761 H (38-126) U/L Troponin I 1.4100 H* (0.00-0.120) ng/mL Total Protein 6.6 (6.3-8.2) G/DL Albumin 2.7 L (3.5-5.0) g/dL Globulin 3.9 (2.2-3.9) gm/dL Albumin/Globulin Ratio 0.7 L (1.0-2.1) Urine Color Yellow (YELLOW) Urine Clarity Clear (Clear) Urine pH 6.0 (5.0-8.0) Ur Specific [place] 1.025 (1.003-1.030) Urine Protein 30 (NEGATIVE) mg/dL Urine Glucose (UA) Negative (Normal) mg/dL Urine Ketones 15 (NEGATIVE) mg/dL Urine Blood Trace-intact (NEGATIVE) Urine Nitrate Negative (NEGATIVE) Urine Bilirubin Negative (NEGATIVE) Urine Urobilinogen 0.2 (0.2-1.0) mg/dL Ur Leukocyte Esterase Negative (Negative) [place]/uL Urine RBC (Auto) 9 H (0-3) /hpf Urine Microscopic WBC 1 (0-5) /hpf Ur Squamous Epith Cells < 1 (0-5) /hpf Urine Bacteria Rare (<OCC) Hyaline Casts 1 (0-2) /hpf IgG (700.0-1600.0) mg/dL Anti-Mitochondrial Ab (Negative) Anti-Smooth Muscle Ab (Negative) Mycoplasma pneumon IgG (<=0.90) 12/12/17 12/12/17 12/12/17 Range/Units 18:40 11:20 10:00 WBC (4.8-10.8) K/uL RBC (4.40-5.90) Mil/uL Hgb (12.0-18.0) g/dL Hct (35.0-51.0) % MCV (80.0-94.0) fl MCH (27.0-31.0) pg MCHC (33.0-37.0) g/dL RDW (11.5-14.5) % Plt Count (130-400) K/uL MPV (7.2-11.7) fl Neut % (Auto) (50.0-75.0) % Lymph % (Auto) (20.0-40.0) % [place] % (Auto) (0.0-10.0) % Eos % (Auto) (0.0-4.0) % Baso % (Auto) (0.0-2.0) % Neut # (Auto) (1.8-7.0) K/uL Lymph # (Auto) (1.0-4.3) K/uL [place] # (Auto) (0.0-0.8) K/uL Eos # (Auto) (0.0-0.7) K/uL Baso # (Auto) (0.0-0.2) K/uL Total Counted Neutrophils % (Manual) Band Neutrophils % Lymphocytes % (Manual) Reactive Lymphs % Monocytes % (Manual) Eosinophils % (Manual) Basophils % (Manual) Metamyelocytes % Myelocytes % Promyelocytes % Blast Cells % Plasma Cell % (Manual) Nucleated RBC % Hypersegmented Polys Smudge Cells Toxic Granulation Dohle Bodies Yelena Rods Platelet Estimate Plt Clumps, EDTA Large Platelets Giant Platelets RBC Morphology Polychromasia Hypochromasia (manual) Poikilocytosis (manual Basophilic Stippling Anisocytosis (manual) Microcytosis (manual) Macrocytosis (manual) Spherocytes Sickle Cells Target Cells Tear Drop Cells Ovalocytes Stomatocytes Helmet Cells [place] Bodies [place]ona Cells Acanthocytes (Spur) Rouleaux Schistocytes Sodium (132-148) mmol/l Potassium (3.6-5.0) MMOL/L Chloride (98-107) mmol/L Carbon Dioxide (22-30) mmol/L Anion Gap (10-20) BUN (9-20) mg/dl Creatinine (0.8-1.5) mg/dl Est GFR ( Amer) Est GFR (Non-Af Amer) Random Glucose (75-110) mg/dL Calcium (8.4-10.2) mg/dL Total Bilirubin (0.2-1.3) mg/dl AST (17-59) U/L ALT (21-72) U/L Alkaline Phosphatase (38-126) U/L Troponin I 0.8390 H* 0.8770 H* (0.00-0.120) ng/mL Total Protein (6.3-8.2) G/DL Albumin (3.5-5.0) g/dL Globulin (2.2-3.9) gm/dL Albumin/Globulin Ratio (1.0-2.1) Urine Color (YELLOW) Urine Clarity (Clear) Urine pH (5.0-8.0) Ur Specific [place] (1.003-1.030) Urine Protein (NEGATIVE) mg/dL Urine Glucose (UA) (Normal) mg/dL Urine Ketones (NEGATIVE) mg/dL Urine Blood (NEGATIVE) Urine Nitrate (NEGATIVE) Urine Bilirubin (NEGATIVE) Urine Urobilinogen (0.2-1.0) mg/dL Ur Leukocyte Esterase (Negative) [place]/uL Urine RBC (Auto) (0-3) /hpf Urine Microscopic WBC (0-5) /hpf Ur Squamous Epith Cells (0-5) /hpf Urine Bacteria (<OCC) Hyaline Casts (0-2) /hpf IgG 1425.3 (700.0-1600.0) mg/dL Anti-Mitochondrial Ab (Negative) Anti-Smooth Muscle Ab (Negative) Mycoplasma pneumon IgG (<=0.90) 12/12/17 12/12/17 12/11/17 Range/Units 10:00 10:00 17:15 WBC 21.6 H (4.8-10.8) K/uL RBC 3.96 L (4.40-5.90) Mil/uL Hgb 11.8 L (12.0-18.0) g/dL Hct 35.5 (35.0-51.0) % MCV 89.7 (80.0-94.0) fl MCH 29.9 (27.0-31.0) pg MCHC 33.3 (33.0-37.0) g/dL RDW 16.2 H (11.5-14.5) % Plt Count 171 (130-400) K/uL MPV 8.5 (7.2-11.7) fl Neut % (Auto) 40.7 L (50.0-75.0) % Lymph % (Auto) 16.9 L (20.0-40.0) % [place] % (Auto) 5.3 (0.0-10.0) % Eos % (Auto) 36.7 H (0.0-4.0) % Baso % (Auto) 0.4 (0.0-2.0) % Neut # (Auto) 8.8 H (1.8-7.0) K/uL Lymph # (Auto) 3.7 (1.0-4.3) K/uL [place] # (Auto) 1.2 H (0.0-0.8) K/uL Eos # (Auto) 7.9 H (0.0-0.7) K/uL Baso # (Auto) 0.1 (0.0-0.2) K/uL Total Counted Cancelled Neutrophils % (Manual) Cancelled Band Neutrophils % Cancelled Lymphocytes % (Manual) Cancelled Reactive Lymphs % Cancelled Monocytes % (Manual) Cancelled Eosinophils % (Manual) Cancelled Basophils % (Manual) Cancelled Metamyelocytes % Cancelled Myelocytes % Cancelled Promyelocytes % Cancelled Blast Cells % Cancelled Plasma Cell % (Manual) Cancelled Nucleated RBC % Cancelled Hypersegmented Polys Cancelled Smudge Cells Cancelled Toxic Granulation Cancelled Dohle Bodies Cancelled Yelena Rods Cancelled Platelet Estimate Cancelled Plt Clumps, EDTA Cancelled Large Platelets Cancelled Giant Platelets Cancelled RBC Morphology Cancelled Polychromasia Cancelled Hypochromasia (manual) Cancelled Poikilocytosis (manual Cancelled Basophilic Stippling Cancelled Anisocytosis (manual) Cancelled Microcytosis (manual) Cancelled Macrocytosis (manual) Cancelled Spherocytes Cancelled Sickle Cells Cancelled Target Cells Cancelled Tear Drop Cells Cancelled Ovalocytes Cancelled Stomatocytes Cancelled Helmet Cells Cancelled [place] Bodies Cancelled Breanna Cells Cancelled Acanthocytes (Spur) Cancelled Rouleaux Cancelled Schistocytes Cancelled Sodium 132 (132-148) mmol/l Potassium 4.4 (3.6-5.0) MMOL/L Chloride 100 (98-107) mmol/L Carbon Dioxide 20 L (22-30) mmol/L Anion Gap 16 (10-20) BUN 11 (9-20) mg/dl Creatinine 1.6 H (0.8-1.5) mg/dl Est GFR ( Amer) 57 Est GFR (Non-Af Amer) 47 Random Glucose 78 (75-110) mg/dL Calcium 8.1 L (8.4-10.2) mg/dL Total Bilirubin 1.1 (0.2-1.3) mg/dl AST 81 H (17-59) U/L ALT 118 H (21-72) U/L Alkaline Phosphatase 865 H D (38-126) U/L Troponin I (0.00-0.120) ng/mL Total Protein 6.6 (6.3-8.2) G/DL Albumin 2.7 L (3.5-5.0) g/dL Globulin 3.9 (2.2-3.9) gm/dL Albumin/Globulin Ratio 0.7 L (1.0-2.1) Urine Color (YELLOW) Urine Clarity (Clear) Urine pH (5.0-8.0) Ur Specific [place] (1.003-1.030) Urine Protein (NEGATIVE) mg/dL Urine Glucose (UA) (Normal) mg/dL Urine Ketones (NEGATIVE) mg/dL Urine Blood (NEGATIVE) Urine Nitrate (NEGATIVE) Urine Bilirubin (NEGATIVE) Urine Urobilinogen (0.2-1.0) mg/dL Ur Leukocyte Esterase (Negative) [place]/uL Urine RBC (Auto) (0-3) /hpf Urine Microscopic WBC (0-5) /hpf Ur Squamous Epith Cells (0-5) /hpf Urine Bacteria (<OCC) Hyaline Casts (0-2) /hpf IgG (700.0-1600.0) mg/dL Anti-Mitochondrial Ab Negative (Negative) Anti-Smooth Muscle Ab Negative (Negative) Mycoplasma pneumon IgG (<=0.90) 12/09/17 Range/Units 21:00 WBC (4.8-10.8) K/uL RBC (4.40-5.90) Mil/uL Hgb (12.0-18.0) g/dL Hct (35.0-51.0) % MCV (80.0-94.0) fl MCH (27.0-31.0) pg MCHC (33.0-37.0) g/dL RDW (11.5-14.5) % Plt Count (130-400) K/uL MPV (7.2-11.7) fl Neut % (Auto) (50.0-75.0) % Lymph % (Auto) (20.0-40.0) % [place] % (Auto) (0.0-10.0) % Eos % (Auto) (0.0-4.0) % Baso % (Auto) (0.0-2.0) % Neut # (Auto) (1.8-7.0) K/uL Lymph # (Auto) (1.0-4.3) K/uL [place] # (Auto) (0.0-0.8) K/uL Eos # (Auto) (0.0-0.7) K/uL Baso # (Auto) (0.0-0.2) K/uL Total Counted Neutrophils % (Manual) Band Neutrophils % Lymphocytes % (Manual) Reactive Lymphs % Monocytes % (Manual) Eosinophils % (Manual) Basophils % (Manual) Metamyelocytes % Myelocytes % Promyelocytes % Blast Cells % Plasma Cell % (Manual) Nucleated RBC % Hypersegmented Polys Smudge Cells Toxic Granulation Dohle Bodies Yelena Rods Platelet Estimate Plt Clumps, EDTA Large Platelets Giant Platelets RBC Morphology Polychromasia Hypochromasia (manual) Poikilocytosis (manual Basophilic Stippling Anisocytosis (manual) Microcytosis (manual) Macrocytosis (manual) Spherocytes Sickle Cells Target Cells Tear Drop Cells Ovalocytes Stomatocytes Helmet Cells [place] Bodies [place] Cells Acanthocytes (Spur) Rouleaux Schistocytes Sodium (132-148) mmol/l Potassium (3.6-5.0) MMOL/L Chloride (98-107) mmol/L Carbon Dioxide (22-30) mmol/L Anion Gap (10-20) BUN (9-20) mg/dl Creatinine (0.8-1.5) mg/dl Est GFR ( Amer) Est GFR (Non-Af Amer) Random Glucose (75-110) mg/dL Calcium (8.4-10.2) mg/dL Total Bilirubin (0.2-1.3) mg/dl AST (17-59) U/L ALT (21-72) U/L Alkaline Phosphatase (38-126) U/L Troponin I (0.00-0.120) ng/mL Total Protein (6.3-8.2) G/DL Albumin (3.5-5.0) g/dL Globulin (2.2-3.9) gm/dL Albumin/Globulin Ratio (1.0-2.1) Urine Color (YELLOW) Urine Clarity (Clear) Urine pH (5.0-8.0) Ur Specific [place] (1.003-1.030) Urine Protein (NEGATIVE) mg/dL Urine Glucose (UA) (Normal) mg/dL Urine Ketones (NEGATIVE) mg/dL Urine Blood (NEGATIVE) Urine Nitrate (NEGATIVE) Urine Bilirubin (NEGATIVE) Urine Urobilinogen (0.2-1.0) mg/dL Ur Leukocyte Esterase (Negative) [place]/uL Urine RBC (Auto) (0-3) /hpf Urine Microscopic WBC (0-5) /hpf Ur Squamous Epith Cells (0-5) /hpf Urine Bacteria (<OCC) Hyaline Casts (0-2) /hpf IgG (700.0-1600.0) mg/dL Anti-Mitochondrial Ab (Negative) Anti-Smooth Muscle Ab (Negative) Mycoplasma pneumon IgG 1.01 H (<=0.90) Laboratory Results - last 24 hr 12/09/17 12/11/17 12/12/17 21:00 17:15 10:00 WBC 21.6 H RBC 3.96 L Hgb 11.8 L Hct 35.5 MCV 89.7 MCH 29.9 MCHC 33.3 RDW 16.2 H Plt Count 171 MPV 8.5 Neut % (Auto) 40.7 L Lymph % (Auto) 16.9 L [place] % (Auto) 5.3 Eos % (Auto) 36.7 H Baso % (Auto) 0.4 Neut # (Auto) 8.8 H Lymph # (Auto) 3.7 [place] # (Auto) 1.2 H Eos # (Auto) 7.9 H Baso # (Auto) 0.1 Total Counted Cancelled Neutrophils % (Manual) Cancelled Band Neutrophils % Cancelled Lymphocytes % (Manual) Cancelled Reactive Lymphs % Cancelled Monocytes % (Manual) Cancelled Eosinophils % (Manual) Cancelled Basophils % (Manual) Cancelled Metamyelocytes % Cancelled Myelocytes % Cancelled Promyelocytes % Cancelled Blast Cells % Cancelled Plasma Cell % (Manual) Cancelled Nucleated RBC % Cancelled Hypersegmented Polys Cancelled Smudge Cells Cancelled Toxic Granulation Cancelled Dohle Bodies Cancelled Yelena Rods Cancelled Platelet Estimate Cancelled Plt Clumps, EDTA Cancelled Large Platelets Cancelled Giant Platelets Cancelled RBC Morphology Cancelled Polychromasia Cancelled Hypochromasia (manual) Cancelled Poikilocytosis (manual Cancelled Basophilic Stippling Cancelled Anisocytosis (manual) Cancelled Microcytosis (manual) Cancelled Macrocytosis (manual) Cancelled Spherocytes Cancelled Sickle Cells Cancelled Target Cells Cancelled Tear Drop Cells Cancelled Ovalocytes Cancelled Stomatocytes Cancelled Helmet Cells Cancelled [place] Bodies Cancelled [place] Cells Cancelled Acanthocytes (Spur) Cancelled Rouleaux Cancelled Schistocytes Cancelled Sodium Potassium Chloride Carbon Dioxide Anion Gap BUN Creatinine Est GFR ( Amer) Est GFR (Non-Af Amer) Random Glucose Calcium Total Bilirubin AST ALT Alkaline Phosphatase Troponin I Total Protein Albumin Globulin Albumin/Globulin Ratio Urine Color Urine Clarity Urine pH Ur Specific [place] Urine Protein Urine Glucose (UA) Urine Ketones Urine Blood Urine Nitrate Urine Bilirubin Urine Urobilinogen Ur Leukocyte Esterase Urine RBC (Auto) Urine Microscopic WBC Ur Squamous Epith Cells Urine Bacteria Hyaline Casts IgG Anti-Mitochondrial Ab Negative Anti-Smooth Muscle Ab Negative Mycoplasma pneumon IgG 1.01 H 12/12/17 12/12/17 12/12/17 10:00 10:00 11:20 WBC RBC Hgb Hct MCV MCH MCHC RDW Plt Count MPV Neut % (Auto) Lymph % (Auto) [place] % (Auto) Eos % (Auto) Baso % (Auto) Neut # (Auto) Lymph # (Auto) [place] # (Auto) Eos # (Auto) Baso # (Auto) Total Counted Neutrophils % (Manual) Band Neutrophils % Lymphocytes % (Manual) Reactive Lymphs % Monocytes % (Manual) Eosinophils % (Manual) Basophils % (Manual) Metamyelocytes % Myelocytes % Promyelocytes % Blast Cells % Plasma Cell % (Manual) Nucleated RBC % Hypersegmented Polys Smudge Cells Toxic Granulation Dohle Bodies Yelena Rods Platelet Estimate Plt Clumps, EDTA Large Platelets Giant Platelets RBC Morphology Polychromasia Hypochromasia (manual) Poikilocytosis (manual Basophilic Stippling Anisocytosis (manual) Microcytosis (manual) Macrocytosis (manual) Spherocytes Sickle Cells Target Cells Tear Drop Cells Ovalocytes Stomatocytes Helmet Cells [place] Bodies [place] Cells Acanthocytes (Spur) Rouleaux Schistocytes Sodium 132 Potassium 4.4 Chloride 100 Carbon Dioxide 20 L Anion Gap 16 BUN 11 Creatinine 1.6 H Est GFR ( Amer) 57 Est GFR (Non-Af Amer) 47 Random Glucose 78 Calcium 8.1 L Total Bilirubin 1.1 AST 81 H ALT 118 H Alkaline Phosphatase 865 H D Troponin I 0.8770 H* Total Protein 6.6 Albumin 2.7 L Globulin 3.9 Albumin/Globulin Ratio 0.7 L Urine Color Urine Clarity Urine pH Ur Specific [place] Urine Protein Urine Glucose (UA) Urine Ketones Urine Blood Urine Nitrate Urine Bilirubin Urine Urobilinogen Ur Leukocyte Esterase Urine RBC (Auto) Urine Microscopic WBC Ur Squamous Epith Cells Urine Bacteria Hyaline Casts IgG 1425.3 Anti-Mitochondrial Ab Anti-Smooth Muscle Ab Mycoplasma pneumon IgG 12/12/17 12/12/17 12/13/17 18:40 22:10 04:45 WBC RBC Hgb Hct MCV MCH MCHC RDW Plt Count MPV Neut % (Auto) Lymph % (Auto) [place] % (Auto) Eos % (Auto) Baso % (Auto) Neut # (Auto) Lymph # (Auto) [place] # (Auto) Eos # (Auto) Baso # (Auto) Total Counted Neutrophils % (Manual) Band Neutrophils % Lymphocytes % (Manual) Reactive Lymphs % Monocytes % (Manual) Eosinophils % (Manual) Basophils % (Manual) Metamyelocytes % Myelocytes % Promyelocytes % Blast Cells % Plasma Cell % (Manual) Nucleated RBC % Hypersegmented Polys Smudge Cells Toxic Granulation Dohle Bodies Yelena Rods Platelet Estimate Plt Clumps, EDTA Large Platelets Giant Platelets RBC Morphology Polychromasia Hypochromasia (manual) Poikilocytosis (manual Basophilic Stippling Anisocytosis (manual) Microcytosis (manual) Macrocytosis (manual) Spherocytes Sickle Cells Target Cells Tear Drop Cells Ovalocytes Stomatocytes Helmet Cells [place] Bodies [place] Cells Acanthocytes (Spur) Rouleaux Schistocytes Sodium 131 L Potassium 5.3 H Chloride 96 L Carbon Dioxide 22 Anion Gap 18 BUN 13 Creatinine 1.3 Est GFR ( Amer) > 60 Est GFR (Non-Af Amer) > 60 Random Glucose 55 L Calcium 8.1 L Total Bilirubin 0.8 AST 83 H ALT 105 H Alkaline Phosphatase 761 H Troponin I 0.8390 H* 1.4100 H* Total Protein 6.6 Albumin 2.7 L Globulin 3.9 Albumin/Globulin Ratio 0.7 L Urine Color Yellow Urine Clarity Clear Urine pH 6.0 Ur Specific [place] 1.025 Urine Protein 30 Urine Glucose (UA) Negative Urine Ketones 15 Urine Blood Trace-intact Urine Nitrate Negative Urine Bilirubin Negative Urine Urobilinogen 0.2 Ur Leukocyte Esterase Negative Urine RBC (Auto) 9 H Urine Microscopic WBC 1 Ur Squamous Epith Cells < 1 Urine Bacteria Rare Hyaline Casts 1 IgG Anti-Mitochondrial Ab Anti-Smooth Muscle Ab Mycoplasma pneumon IgG 12/13/17 04:45 WBC 21.6 H RBC 3.82 L Hgb 11.4 L Hct 34.4 L MCV 90.0 MCH 29.8 MCHC 33.1 RDW 16.3 H Plt Count 199 MPV Neut % (Auto) Lymph % (Auto) [place] % (Auto) Eos % (Auto) Baso % (Auto) Neut # (Auto) Lymph # (Auto) [place] # (Auto) Eos # (Auto) Baso # (Auto) Total Counted Neutrophils % (Manual) Band Neutrophils % Lymphocytes % (Manual) Reactive Lymphs % Monocytes % (Manual) Eosinophils % (Manual) Basophils % (Manual) Metamyelocytes % Myelocytes % Promyelocytes % Blast Cells % Plasma Cell % (Manual) Nucleated RBC % Hypersegmented Polys Smudge Cells Toxic Granulation Dohle Bodies Yelena Rods Platelet Estimate Plt Clumps, EDTA Large Platelets Giant Platelets RBC Morphology Polychromasia Hypochromasia (manual) Poikilocytosis (manual Basophilic Stippling Anisocytosis (manual) Microcytosis (manual) Macrocytosis (manual) Spherocytes Sickle Cells Target Cells Tear Drop Cells Ovalocytes Stomatocytes Helmet Cells [place] Bodies Breanna Cells Acanthocytes (Spur) Rouleaux Schistocytes Sodium Potassium Chloride Carbon Dioxide Anion Gap BUN Creatinine Est GFR ( Amer) Est GFR (Non-Af Amer) Random Glucose Calcium Total Bilirubin AST ALT Alkaline Phosphatase Troponin I Total Protein Albumin Globulin Albumin/Globulin Ratio Urine Color Urine Clarity Urine pH Ur Specific [place] Urine Protein Urine Glucose (UA) Urine Ketones Urine Blood Urine Nitrate Urine Bilirubin Urine Urobilinogen Ur Leukocyte Esterase Urine RBC (Auto) Urine Microscopic WBC Ur Squamous Epith Cells Urine Bacteria Hyaline Casts IgG Anti-Mitochondrial Ab Anti-Smooth Muscle Ab Mycoplasma pneumon IgG EKG/Cardiology Studies: Cardiology / EKG Studies 12/13/17 EKG [ELECTROCARDIOGRAM] Routine Comment: Mode Of Transportation: PORTABLE Reason For Exam: chest pain, change in tele Critical Care Progress Note - Nutrition Nutrition: Nutrition Category Date Time Status Liquid Diet [DIET] Diets 12/13/17 Breakfast Active Assessment/Plan - Assessment and Plan (Free Text) Assessment: Patient is a 42yo male with PMHx significant for severe asthma, vitiligo who presented to the ED on December 09 with abdominal pain for 4 days. ACS: 2nd TNI is slightly higher, no CP -Acute pancreatitis -Multifocal HCAP -Abnormal LFTs- -Severe asthma s/p thermoplasty in August 2017 -Eosinophilia -H/O anabolic steroid abuse Plan: Continue IVF, decreased rate to 60 cc/h -Advance to liquid diet as tolerated, as per GI -Cardiology and GI recommendations appreciated. --Patient has significant eosinophilia on CBC differential (36% when normal is 4 %) - given worsening of asthma, unexplained pancreatitis and chest pain (? myocarditis) with elevated BNP/+troponin - consider possibility of systemic vasculitis such as Churg-Cristopher -Check ANCA screen, may benefit from rheumatology consultation if positive -SHARONDA pending; AMA, ASMA negative, IgG WNL -Hepatitis serologies negative -On vancomycin and meropenem --Analgesia per primary service -Continue supportive care
[2017-12-13] MEDS: Enoxaparin 80 mg Syringe SC SCH ×2 (09:30→20:09)
[2017-12-13] MEDS: Lidocaine 5% Patch TD SCH (09:30)
[2017-12-13] MEDS: Fluticasone-Salmeterol 250-50mcg Diskus IH SCH ×2 (09:30→20:09)
--- NOTE | 2017-12-13 11:33 | CP.PCM.PN ---
<Johanna Downey - Last Filed: 12/13/17 12:40> Subjective - Date & Time of Evaluation Date of Evaluation: 12/13/17 Time of Evaluation: 11:17 - Subjective Subjective: no overnight events. minimal chest pain today. Not tolerating PO last night. abd pain controlled. making urine, takes time to empty bladder, ~3 min. Objective - Vital Signs/Intake and Output Vital Signs (last 24 hours): Temp Pulse Resp BP Pulse Ox 99.6 F 120 H 19 100/70 95 12/13/17 07:30 12/13/17 09:30 12/13/17 07:30 12/13/17 09:30 12/13/17 07:30 Intake and Output: 12/13/17 12/13/17 06:59 18:59 Intake Total 293 Output Total 925 Balance -632 - Medications Medications: Current Medications Acetaminophen (Tylenol 325mg Tab) 650 mg PO Q6 PRN PRN Reason: Fever >100.4 F Last Admin: 12/12/17 08:13 Dose: 650 mg Acetaminophen (Tylenol 325mg Tab) 650 mg PO Q6 PRN PRN Reason: Pain, Mild (1-3) Aspirin (Aspirin Chewable) 81 mg PO DAILY [facility] Last Admin: 12/13/17 09:30 Dose: 81 mg Enoxaparin Sodium (Lovenox) 70 mg SC Q12 [facility] PRN Reason: Protocol Last Admin: 12/13/17 09:30 Dose: 70 mg Vancomycin HCl 750 mg/ Sodium (Chloride) 250 mls @ 166.667 mls/hr IVPB DAILY [facility] PRN Reason: Protocol Last Admin: 12/12/17 09:02 Dose: 166.667 mls/hr Meropenem 1 gm/ Sodium (Chloride) 100 mls @ 100 mls/hr IVPB Q8 [facility] PRN Reason: Protocol Last Admin: 12/13/17 09:30 Dose: 100 mls/hr Ipratropium [place] (Atrovent) 0.5 mg IH RQ6 [facility] Levalbuterol HCl (Xopenex) 0.63 mg INH RQ6 [facility] Last Admin: 12/13/17 07:49 Dose: 0.63 mg Lidocaine (Lidoderm) 1 ea TD DAILY [facility] Last Admin: 12/13/17 09:30 Dose: 1 ea Metoprolol Tartrate (Lopressor) 25 mg PO Q12 [facility] Last Admin: 12/13/17 09:30 Dose: 25 mg Morphine Sulfate (Morphine) 2 mg IVP Q4 PRN PRN Reason: Pain, moderate (4-7) Morphine Sulfate (Morphine) 4 mg IVP Q4 PRN PRN Reason: Pain, severe (8-10) Last Admin: 12/13/17 07:35 Dose: 4 mg Nitroglycerin (Nitrostat Sl Tab) 0.4 mg SL Q5M PRN PRN Reason: Pain, Mild (1-3) Last Admin: 12/12/17 06:43 Dose: 0.4 mg Ondansetron HCl (Zofran Odt) 4 mg PO Q6H PRN PRN Reason: Nausea/Vomiting Prochlorperazine (Compazine) 10 mg IM Q6 PRN PRN Reason: Nausea/Vomiting Last Admin: 12/13/17 10:42 Dose: 10 mg Fluticasone/Salmeterol (Advair Diskus 250/50) 1 puff IH Q12 [facility] Last Admin: 12/13/17 09:30 Dose: 1 puff - Labs Labs: 12/13/17 04:45 12/13/17 04:45 - Constitutional Appears: Other (ill) - Head Exam Head Exam: ATRAUMATIC, NORMAL INSPECTION - Eye Exam Eye Exam: Normal appearance - ENT Exam ENT Exam: Mucous Membranes Moist - Neck Exam Neck Exam: Full ROM, Normal Inspection - Respiratory Exam Respiratory Exam: Wheezes - Cardiovascular Exam Cardiovascular Exam: Tachycardia, REGULAR RHYTHM - GI/Abdominal Exam GI & Abdominal Exam: Soft - Extremities Exam Extremities Exam: Normal Inspection. absent: Calf Tenderness - Back Exam Back Exam: NORMAL INSPECTION - Neurological Exam Neurological Exam: Alert, Oriented x3 - Skin Skin Exam: Dry, Warm Assessment and Plan - Assessment and Plan (Free Text) Assessment: A: 42yo M with PMHx Asthma, GERD, and PNA admitted for Multifocal pneumonia. Plan: Will have pulm reconsulted for PNA and ID will follow, c/w IV abx, CXR for today. GI following for pancreatitis, advance to CLD as tolerated. Cardio following for NSTEMI, c/w ASA. NSTEMI - troponin x3 elevated - pro BNP elevated - EKG 12/13/17: no ST elevation (my interp) - Cardio consult Dr Patel, recs appreciated - School Nurse consult, recs appreciated - ASA 81 - lopressor 5mg IV x1 today, 30min later start metoprolol tartrate 25 mg PO BID - lovenox 70 mg sc BID - repeat ECHO Multifocal Pneumonia - Legionela neg, procalcitonin 0.40, f/u Mycoplasma IgM, HIV pending - blood cx NGTD, sputum culture pending - Pulmonology consult agnes Hernandez appreciated. - ID consult agnes Alston appreciated - stopped zosyn, c/w vanco - started merropenem -CXR today Pancreatitis - CT 12/11/17: findings compatible with acute pancreatitis - lipase 44 - CLD - MIVF if not tolerating PO, can run at 125cc/hr LR - morphine 4 mg Q6 PRN for pain - GI Dr Smith consult, recs appreciated Eosinophilia -DDx Churg Cristopher given Pulm/GI issues -no available Rheum authorization representative Asthma - Atrovent and Xopenex Q6H -CXR today Transaminitis - likely 2/2 to pancreatitis, getting worked up for indirect bilirubinemia by GI - ABD US: trace increased echogenicity surrounding portal triads diffusely. This can be seen with minimal degrees of the ascending cholangitis which may not have strong clinical symptoms. No intrahepatic bile duct dilatation. No gallstones. - HIDA: negative for ductal and gallblader stones. DVT prophylaxis - lovenox 70 mg sc BID <Kathy Gaytan - Last Filed: 12/14/17 06:49> Objective - Vital Signs/Intake and Output Vital Signs (last 24 hours): Temp Pulse Resp BP Pulse Ox 97.7 F 96 H 14 131/82 93 L 12/14/17 04:00 12/14/17 06:00 12/14/17 06:00 12/14/17 04:00 12/14/17 06:00 Intake and Output: 12/13/17 12/14/17 18:59 06:59 Intake Total 248 Output Total 1850 Balance -1602 - Medications Medications: Current Medications Acetaminophen (Tylenol 325mg Tab) 650 mg PO Q6 PRN PRN Reason: Fever >100.4 F Last Admin: 12/12/17 08:13 Dose: 650 mg Acetaminophen (Tylenol 325mg Tab) 650 mg PO Q6 PRN PRN Reason: Pain, Mild (1-3) Aspirin (Aspirin Chewable) 81 mg PO DAILY [facility] Last Admin: 12/13/17 09:30 Dose: 81 mg Enoxaparin Sodium (Lovenox) 70 mg SC Q12 [facility] PRN Reason: Protocol Last Admin: 12/13/17 20:09 Dose: 70 mg Vancomycin HCl 750 mg/ Sodium (Chloride) 250 mls @ 166.667 mls/hr IVPB DAILY [facility] PRN Reason: Protocol Last Admin: 12/13/17 11:00 Dose: 166.667 mls/hr Meropenem 1 gm/ Sodium (Chloride) 100 mls @ 100 mls/hr IVPB Q8 [facility] PRN Reason: Protocol Last Admin: 12/14/17 01:00 Dose: 100 mls/hr Ipratropium [place] (Atrovent) 0.5 mg IH RQ6 [facility] Last Admin: 12/14/17 01:48 Dose: Not Given Levalbuterol HCl (Xopenex) 0.63 mg INH RQ6 [facility] Last Admin: 12/14/17 01:48 Dose: Not Given Lidocaine (Lidoderm) 1 ea TD DAILY [facility] Last Admin: 12/13/17 09:30 Dose: 1 ea Methylprednisolone (Solu-Medrol) 80 mg IV Q12 [facility] Last Admin: 12/13/17 20:21 Dose: 80 mg Metoprolol Tartrate (Lopressor) 25 mg PO Q12 [facility] Last Admin: 12/13/17 20:08 Dose: 25 mg Montelukast Sodium (Singulair) 10 mg PO HS [facility] Last Admin: 12/13/17 21:03 Dose: 10 mg Morphine Sulfate (Morphine) 2 mg IVP Q4 PRN PRN Reason: Pain, moderate (4-7) Morphine Sulfate (Morphine) 4 mg IVP Q4 PRN PRN Reason: Pain, severe (8-10) Last Admin: 12/14/17 04:19 Dose: 4 mg Nitroglycerin (Nitrostat Sl Tab) 0.4 mg SL Q5M PRN PRN Reason: Pain, Mild (1-3) Last Admin: 12/12/17 06:43 Dose: 0.4 mg Ondansetron HCl (Zofran Odt) 4 mg PO Q6H PRN PRN Reason: Nausea/Vomiting Prochlorperazine (Compazine) 10 mg IM Q6 PRN PRN Reason: Nausea/Vomiting Last Admin: 12/13/17 10:42 Dose: 10 mg Fluticasone/Salmeterol (Advair Diskus 250/50) 1 puff IH Q12 [facility] Last Admin: 12/13/17 20:09 Dose: 1 puff - Labs Labs: 12/13/17 04:45 12/13/17 04:45 Attending/Attestation - Attestation I have personally seen and examined this patient.: Yes I have fully participated in the care of the patient.: Yes I have reviewed all pertinent clinical information, including history, physical exam and plan: Yes Notes (Text): 12/14/17 06:46 ATTENDING NOTE ATTESTATION. PATIENT SEEN AND EXAMINED. CASE DISCUSSED WITH RESIDENT. AGREE WITH FINDINGS AND PLAN. DISCUSSED POSSIBLITY OF DANIELA KATE ON ROUNDS. RESIDENT WILL INQUIRE IN AM TOMORROW IF THERE IS BANKMAN ON STAFF THAT WOULD BE AVAILABLE FOR CONSULT. WILL CONTINUE ICU WITH ID, CARDIOLOGY , GASTROENTEROLOGY AND [employer] OPERATOR FOLLOWING PATIENT.
[2017-12-13] MEDS ORDERED: Albuterol-Ipratrop 3 mg / 0.5 (3 ml) UD INH SCH (12:00)
--- NOTE | 2017-12-13 16:02 | CP.PCM.PN ---
Subjective - Date & Time of Evaluation Date of Evaluation: 12/13/17 Time of Evaluation: 16:02 Objective - Vital Signs/Intake and Output Vital Signs (last 24 hours): Temp Pulse Resp BP Pulse Ox 99.6 F 120 H 19 100/70 95 12/13/17 07:30 12/13/17 09:30 12/13/17 07:30 12/13/17 09:30 12/13/17 07:30 Intake and Output: 12/13/17 12/13/17 06:59 18:59 Intake Total 293 Output Total 925 Balance -632 - Medications Medications: Current Medications Acetaminophen (Tylenol 325mg Tab) 650 mg PO Q6 PRN PRN Reason: Fever >100.4 F Last Admin: 12/12/17 08:13 Dose: 650 mg Acetaminophen (Tylenol 325mg Tab) 650 mg PO Q6 PRN PRN Reason: Pain, Mild (1-3) Aspirin (Aspirin Chewable) 81 mg PO DAILY [facility] Last Admin: 12/13/17 09:30 Dose: 81 mg Enoxaparin Sodium (Lovenox) 70 mg SC Q12 [facility] PRN Reason: Protocol Last Admin: 12/13/17 09:30 Dose: 70 mg Vancomycin HCl 750 mg/ Sodium (Chloride) 250 mls @ 166.667 mls/hr IVPB DAILY [facility] PRN Reason: Protocol Last Admin: 12/12/17 09:02 Dose: 166.667 mls/hr Meropenem 1 gm/ Sodium (Chloride) 100 mls @ 100 mls/hr IVPB Q8 [facility] PRN Reason: Protocol Last Admin: 12/13/17 09:30 Dose: 100 mls/hr Ipratropium [place] (Atrovent) 0.5 mg IH RQ6 [facility] Last Admin: 12/13/17 13:38 Dose: Not Given Levalbuterol HCl (Xopenex) 0.63 mg INH RQ6 [facility] Last Admin: 12/13/17 13:38 Dose: Not Given Lidocaine (Lidoderm) 1 ea TD DAILY [facility] Last Admin: 12/13/17 09:30 Dose: 1 ea Metoprolol Tartrate (Lopressor) 25 mg PO Q12 [facility] Last Admin: 12/13/17 09:30 Dose: 25 mg Morphine Sulfate (Morphine) 2 mg IVP Q4 PRN PRN Reason: Pain, moderate (4-7) Morphine Sulfate (Morphine) 4 mg IVP Q4 PRN PRN Reason: Pain, severe (8-10) Last Admin: 12/13/17 11:43 Dose: 4 mg Nitroglycerin (Nitrostat Sl Tab) 0.4 mg SL Q5M PRN PRN Reason: Pain, Mild (1-3) Last Admin: 12/12/17 06:43 Dose: 0.4 mg Ondansetron HCl (Zofran Odt) 4 mg PO Q6H PRN PRN Reason: Nausea/Vomiting Prochlorperazine (Compazine) 10 mg IM Q6 PRN PRN Reason: Nausea/Vomiting Last Admin: 12/13/17 10:42 Dose: 10 mg Fluticasone/Salmeterol (Advair Diskus 250/50) 1 puff IH Q12 [facility] Last Admin: 12/13/17 09:30 Dose: 1 puff - Labs Labs: 12/13/17 04:45 12/13/17 04:45 Assessment and Plan (1) Elevated troponin Status: Acute (2) ARF (acute renal failure) Status: Acute (3) Eosinophilia Status: Acute (4) RTI (respiratory tract infection) Status: Acute (5) Abnormal EKG Status: Acute (6) Elevated liver enzymes Status: Acute (7) Pancreatitis Status: Acute (8) Malnutrition Status: Acute
--- NOTE | 2017-12-13 18:15 | CP.PCM.PN ---
Subjective - Subjective Subjective: Called to revaluate patient with multifocal pna, pancreatitis, ACS. Patient states his breathing is a bit better, but at times gets sob. VSS, Afebrile. However, He is tachycardic. Lungs c/w basilar crackles and prolonged expiration. Rest is unremarkable. Labs as below. Plan: Cont care as per ICU Restart Solumedrol 80 Q 12. Start Montelukast 10 Q HS. Optimize Cardiac status. X-rays shows venous congestion with some air space disease. Repeat Echo. Ordered Lasix 20 * 1 to see his response, repeat x-ray in am. There is always a consideration of BOOP following previous infections, and they can have any presentation on x-ray. If patient's infiltrates don't resolve, he will probably need a bronch with BAL. If that is inconlusive, he will probably need a VATS with Bx for good tissue sampling. Cont ID and Cardiology f/u. Cont Abx. Monitor WBC, temp curve, and microbiological studies. pud and dvt Px. Will f/u. Objective - Vital Signs/Intake and Output Vital Signs (last 24 hours): Temp Pulse Resp BP Pulse Ox 98.3 F 122 H 22 104/79 95 12/13/17 16:00 12/13/17 16:00 12/13/17 16:00 12/13/17 16:00 12/13/17 16:00 Intake and Output: 12/13/17 12/13/17 06:59 18:59 Intake Total 293 Output Total 925 Balance -632 - Medications Medications: Current Medications Acetaminophen (Tylenol 325mg Tab) 650 mg PO Q6 PRN PRN Reason: Fever >100.4 F Last Admin: 12/12/17 08:13 Dose: 650 mg Acetaminophen (Tylenol 325mg Tab) 650 mg PO Q6 PRN PRN Reason: Pain, Mild (1-3) Aspirin (Aspirin Chewable) 81 mg PO DAILY [facility] Last Admin: 12/13/17 09:30 Dose: 81 mg Enoxaparin Sodium (Lovenox) 70 mg SC Q12 [facility]IEL PRN Reason: Protocol Last Admin: 12/13/17 09:30 Dose: 70 mg Vancomycin HCl 750 mg/ Sodium (Chloride) 250 mls @ 166.667 mls/hr IVPB DAILY [facility] PRN Reason: Protocol Last Admin: 12/13/17 11:00 Dose: 166.667 mls/hr Meropenem 1 gm/ Sodium (Chloride) 100 mls @ 100 mls/hr IVPB Q8 [facility] PRN Reason: Protocol Last Admin: 12/13/17 16:32 Dose: 100 mls/hr Ipratropium [place] (Atrovent) 0.5 mg IH RQ6 [facility] Last Admin: 12/13/17 13:38 Dose: Not Given Levalbuterol HCl (Xopenex) 0.63 mg INH RQ6 [facility] Last Admin: 12/13/17 13:38 Dose: Not Given Lidocaine (Lidoderm) 1 ea TD DAILY [facility] Last Admin: 12/13/17 09:30 Dose: 1 ea Metoprolol Tartrate (Lopressor) 25 mg PO Q12 [facility] Last Admin: 12/13/17 09:30 Dose: 25 mg Morphine Sulfate (Morphine) 2 mg IVP Q4 PRN PRN Reason: Pain, moderate (4-7) Morphine Sulfate (Morphine) 4 mg IVP Q4 PRN PRN Reason: Pain, severe (8-10) Last Admin: 12/13/17 16:20 Dose: 4 mg Nitroglycerin (Nitrostat Sl Tab) 0.4 mg SL Q5M PRN PRN Reason: Pain, Mild (1-3) Last Admin: 12/12/17 06:43 Dose: 0.4 mg Ondansetron HCl (Zofran Odt) 4 mg PO Q6H PRN PRN Reason: Nausea/Vomiting Prochlorperazine (Compazine) 10 mg IM Q6 PRN PRN Reason: Nausea/Vomiting Last Admin: 12/13/17 10:42 Dose: 10 mg Fluticasone/Salmeterol (Advair Diskus 250/50) 1 puff IH Q12 [facility] Last Admin: 12/13/17 09:30 Dose: 1 puff - Labs Labs: 12/13/17 04:45 12/13/17 04:45
[2017-12-13 18:52] LABS: AChR BLOCKING ANTIBODIES <15 % inhibit (<15)
[2017-12-13 18:59] LABS: COMPLEMENT C4 45.7 mg/dL (14.0-44.0)
[2017-12-13] MEDS ORDERED: methylPREDNISolone 80 MG in Sodium Chloride 0.9% 50 ML IVPB SCH (21:00)
[2017-12-14] MEDS: Meropenem 1 GM in Sodium Chloride 0.9% 100 ML IVPB SCH ×3 (01:00→16:23)
[2017-12-14] MEDS: Ipratropium 0.02% Inhal Soln (0.5 mg/2.5 ml) UD IH SCH ×4 (01:48→19:43)
[2017-12-14] MEDS: Levalbuterol 0.63 MG/3 ML Inhal Soln UD INH SCH ×4 (01:48→19:44)
[2017-12-14] MEDS ORDERED: Morphine 5 MG/ML SYRINGE IVP PRN ×3 (04:15→16:30)
--- NOTE | 2017-12-14 07:28 | CP.PCM.PN ---
<Kim Randolph - Last Filed: 12/14/17 13:06> Subjective - Date & Time of Evaluation Date of Evaluation: 12/14/17 Time of Evaluation: 07:25 - Subjective Subjective: GI Fellow PGY4 Progress Note Patient seen and examined at bedside, patient states that his abdominal pain is better and rates it a 2/10. He says he has an appetite and would like to try and eat food, tolerating clear liquid diet overnight. Chest pain and tachycardia resolved overnight per the patient after he ambulated. Denies any BM. ROS: 12 system ROS was performed and negative except as above Objective - Vital Signs/Intake and Output Vital Signs (last 24 hours): Temp Pulse Resp BP Pulse Ox 97.7 F 96 H 14 131/82 93 L 12/14/17 04:00 12/14/17 06:00 12/14/17 06:00 12/14/17 04:00 12/14/17 06:00 Intake and Output: 12/14/17 12/14/17 06:59 18:59 Intake Total 248 Output Total 1850 Balance -1602 - Medications Medications: Current Medications Acetaminophen (Tylenol 325mg Tab) 650 mg PO Q6 PRN PRN Reason: Fever >100.4 F Last Admin: 12/12/17 08:13 Dose: 650 mg Acetaminophen (Tylenol 325mg Tab) 650 mg PO Q6 PRN PRN Reason: Pain, Mild (1-3) Aspirin (Aspirin Chewable) 81 mg PO DAILY [facility] Last Admin: 12/13/17 09:30 Dose: 81 mg Enoxaparin Sodium (Lovenox) 70 mg SC Q12 [facility] PRN Reason: Protocol Last Admin: 12/13/17 20:09 Dose: 70 mg Vancomycin HCl 750 mg/ Sodium (Chloride) 250 mls @ 166.667 mls/hr IVPB DAILY [facility] PRN Reason: Protocol Last Admin: 12/13/17 11:00 Dose: 166.667 mls/hr Meropenem 1 gm/ Sodium (Chloride) 100 mls @ 100 mls/hr IVPB Q8 [facility] PRN Reason: Protocol Last Admin: 12/14/17 01:00 Dose: 100 mls/hr Ipratropium [place] (Atrovent) 0.5 mg IH RQ6 [facility] Last Admin: 12/14/17 01:48 Dose: Not Given Levalbuterol HCl (Xopenex) 0.63 mg INH RQ6 [facility] Last Admin: 12/14/17 01:48 Dose: Not Given Lidocaine (Lidoderm) 1 ea TD DAILY [facility] Last Admin: 12/13/17 09:30 Dose: 1 ea Methylprednisolone (Solu-Medrol) 80 mg IV Q12 [facility] Last Admin: 12/13/17 20:21 Dose: 80 mg Metoprolol Tartrate (Lopressor) 25 mg PO Q12 [facility] Last Admin: 12/13/17 20:08 Dose: 25 mg Montelukast Sodium (Singulair) 10 mg PO HS [facility] Last Admin: 12/13/17 21:03 Dose: 10 mg Morphine Sulfate (Morphine) 2 mg IVP Q4 PRN PRN Reason: Pain, moderate (4-7) Morphine Sulfate (Morphine) 4 mg IVP Q4 PRN PRN Reason: Pain, severe (8-10) Last Admin: 12/14/17 04:19 Dose: 4 mg Nitroglycerin (Nitrostat Sl Tab) 0.4 mg SL Q5M PRN PRN Reason: Pain, Mild (1-3) Last Admin: 12/12/17 06:43 Dose: 0.4 mg Ondansetron HCl (Zofran Odt) 4 mg PO Q6H PRN PRN Reason: Nausea/Vomiting Prochlorperazine (Compazine) 10 mg IM Q6 PRN PRN Reason: Nausea/Vomiting Last Admin: 12/13/17 10:42 Dose: 10 mg Fluticasone/Salmeterol (Advair Diskus 250/50) 1 puff IH Q12 [facility] Last Admin: 12/13/17 20:09 Dose: 1 puff - Labs Labs: 12/13/17 04:45 12/13/17 04:45 - Constitutional Appears: Non-toxic, No Acute Distress - Head Exam Head Exam: ATRAUMATIC, NORMAL INSPECTION, NORMOCEPHALIC - Eye Exam Eye Exam: EOMI, Normal appearance, PERRL - ENT Exam ENT Exam: Mucous Membranes Moist - Neck Exam Neck Exam: Full ROM - Respiratory Exam Respiratory Exam: Rhonchi, NORMAL BREATHING PATTERN - Cardiovascular Exam Cardiovascular Exam: Tachycardia - GI/Abdominal Exam GI & Abdominal Exam: Soft, Normal Bowel Sounds. absent: Distended, Firm, Guarding, Rigid, Tenderness, Organomegaly - Rectal Exam Rectal Exam: Deferred - Extremities Exam Extremities Exam: Full ROM, Normal Inspection - Back Exam Back Exam: NORMAL INSPECTION - Neurological Exam Neurological Exam: Alert, Awake, Oriented x3 - Psychiatric Exam Psychiatric exam: Normal Affect, Normal Mood - Skin Skin Exam: Dry, Intact, Warm Assessment and Plan - Assessment and Plan (Free Text) Assessment: This is a 42yo male with PMHx significant for severe asthma who presented to the ED on December 09 with abdominal pain for 4 days. 1. Acute pancreatitis 2. Multifocal HCAP 3. Abnormal LFTs 4. Chest pain 5. Severe asthma s/p thermoplasty in August 2017 6. Eosinophilia Plan: -Clinically improving with abdominal pain, continue supportive care with pain control and anti-emetics -Advance to full liquid diet, if tolerates can advance to low fat diet with small frequent meals later tonight or tomorrow morning -Abdominal pain improving, analgesia per primary service -IVF have been discontinued -Abx for multifocal PNA ddx BOOP per pulmonology, continue respiratory care, may need bronchoscopy -Elevated troponins, cardiology consultation appreciated, echocardiogram EF 55% -Patient with eosinophilia 36% on CBC differential -consider systemic vasculitis such as Churg-Cristopher with hx of asthma, pancreatitis and chest pain , elevated BNP/+troponin -LFTs tending down, Hepatitis and autoimmune serologies negative -Check ANCA screen, may benefit from rheumatology consultation if positive -Check CPK -SHARONDA pending; AMA, ASMA negative, IgG WNL -Please call with any questions or concerns <Naren Heart - Last Filed: 12/14/17 14:12> Objective - Vital Signs/Intake and Output Vital Signs (last 24 hours): Temp Pulse Resp BP Pulse Ox 97.3 F L 95 H 16 104/70 95 12/14/17 12:00 12/14/17 12:00 12/14/17 12:00 12/14/17 12:00 12/14/17 12:00 Intake and Output: 12/14/17 12/14/17 06:59 18:59 Intake Total 248 1150 Output Total 1850 500 Balance -1602 650 - Medications Medications: Current Medications Acetaminophen (Tylenol 325mg Tab) 650 mg PO Q6 PRN PRN Reason: Fever >100.4 F Last Admin: 12/12/17 08:13 Dose: 650 mg Acetaminophen (Tylenol 325mg Tab) 650 mg PO Q6 PRN PRN Reason: Pain, Mild (1-3) Aspirin (Aspirin Chewable) 81 mg PO DAILY [facility] Last Admin: 12/14/17 08:49 Dose: 81 mg Enoxaparin Sodium (Lovenox) 70 mg SC Q12 [facility] PRN Reason: Protocol Last Admin: 12/14/17 08:50 Dose: 70 mg Vancomycin HCl 750 mg/ Sodium (Chloride) 250 mls @ 166.667 mls/hr IVPB DAILY [facility] PRN Reason: Protocol Last Admin: 12/13/17 11:00 Dose: 166.667 mls/hr Meropenem 1 gm/ Sodium (Chloride) 100 mls @ 100 mls/hr IVPB Q8 [facility] PRN Reason: Protocol Last Admin: 12/14/17 08:50 Dose: 100 mls/hr Ipratropium [place] (Atrovent) 0.5 mg IH RQ6 [facility] Last Admin: 12/14/17 13:31 Dose: Not Given Levalbuterol HCl (Xopenex) 0.63 mg INH RQ6 [facility] Last Admin: 12/14/17 13:31 Dose: Not Given Lidocaine (Lidoderm) 1 ea TD DAILY [facility] Last Admin: 12/14/17 08:49 Dose: 1 ea Methylprednisolone (Solu-Medrol) 80 mg IV Q12 [facility] Last Admin: 12/14/17 08:54 Dose: 80 mg Metoprolol Tartrate (Lopressor) 25 mg PO Q12 [facility] Last Admin: 12/14/17 08:49 Dose: 25 mg Montelukast Sodium (Singulair) 10 mg PO HS [facility] Last Admin: 12/13/17 21:03 Dose: 10 mg Morphine Sulfate (Morphine) 2 mg IVP Q4 PRN PRN Reason: Pain, moderate (4-7) Morphine Sulfate (Morphine) 4 mg IVP Q4 PRN PRN Reason: Pain, severe (8-10) Last Admin: 12/14/17 04:19 Dose: 4 mg Nitroglycerin (Nitrostat Sl Tab) 0.4 mg SL Q5M PRN PRN Reason: Pain, Mild (1-3) Last Admin: 12/12/17 06:43 Dose: 0.4 mg Ondansetron HCl (Zofran Odt) 4 mg PO Q6H PRN PRN Reason: Nausea/Vomiting Prochlorperazine (Compazine) 10 mg IM Q6 PRN PRN Reason: Nausea/Vomiting Last Admin: 12/13/17 10:42 Dose: 10 mg Fluticasone/Salmeterol (Advair Diskus 250/50) 1 puff IH Q12 [facility] Last Admin: 12/14/17 08:49 Dose: 1 puff - Labs Labs: 12/13/17 04:45 12/13/17 04:45 Attending/Attestation - Attestation I have personally seen and examined this patient.: Yes I have fully participated in the care of the patient.: Yes I have reviewed all pertinent clinical information, including history, physical exam and plan: Yes Notes (Text): 12/14/17 14:07 I have seen and examined patient with GI fellow in MICU. No acute events overnight, he continues to endorse dyspnea, chest pain, and intermittent epigastric abdominal pain. He states his symptoms started after being placed on antibiotics. He denies vomiting, diarrhea. Tolerating PO liquids without difficulty. Will advance diet as he is hungry. LFT same with hepatitis serologies negative. Continue with IVF hydration and pain control and antibiotic therapy as per ID. Follow up cardiac recommendations and vasculitis work up. Continue PPI daily. No current urgent indication for endoscopy in setting of severe pulmonary cardiac decompensation. Will sign off for now. Please reconsult as necessary
[2017-12-14] MEDS: Fluticasone-Salmeterol 250-50mcg Diskus IH SCH ×2 (08:49→22:02)
[2017-12-14] MEDS: Lidocaine 5% Patch TD SCH (08:49)
[2017-12-14] MEDS: Enoxaparin 80 mg Syringe SC SCH ×2 (08:50→22:08)
--- NOTE | 2017-12-14 09:24 | CP.PCM.PN ---
Subjective - Date & Time of Evaluation Date of Evaluation: 12/14/17 Time of Evaluation: 07:00 - Subjective Subjective: ICU day 3. Patient seen and examined at bedside, patient states that his abdominal pain is better and rates it a 2/10. He states good appetite and would like to try and eat food, tolerating clear liquid diet overnight. Denies chest pain and tachycardia. Ambulating. Denies any BM. Low grade fever last night, no chills, nausea or vomiting. Objective - Vital Signs/Intake and Output Vital Signs (last 24 hours): Temp Pulse Resp BP Pulse Ox 97.9 F 102 H 14 104/72 95 12/14/17 08:00 12/14/17 08:49 12/14/17 08:00 12/14/17 08:49 12/14/17 08:00 Intake and Output: 12/14/17 12/14/17 06:59 18:59 Intake Total 248 Output Total 1850 Balance -1602 - Medications Medications: Current Medications Acetaminophen (Tylenol 325mg Tab) 650 mg PO Q6 PRN PRN Reason: Fever >100.4 F Last Admin: 12/12/17 08:13 Dose: 650 mg Acetaminophen (Tylenol 325mg Tab) 650 mg PO Q6 PRN PRN Reason: Pain, Mild (1-3) Aspirin (Aspirin Chewable) 81 mg PO DAILY [facility] Last Admin: 12/14/17 08:49 Dose: 81 mg Enoxaparin Sodium (Lovenox) 70 mg SC Q12 DARIEL PRN Reason: Protocol Last Admin: 12/14/17 08:50 Dose: 70 mg Vancomycin HCl 750 mg/ Sodium (Chloride) 250 mls @ 166.667 mls/hr IVPB DAILY DARIEL PRN Reason: Protocol Last Admin: 12/13/17 11:00 Dose: 166.667 mls/hr Meropenem 1 gm/ Sodium (Chloride) 100 mls @ 100 mls/hr IVPB Q8 DARIEL PRN Reason: Protocol Last Admin: 12/14/17 08:50 Dose: 100 mls/hr Ipratropium [place] (Atrovent) 0.5 mg IH RQ6 [facility] Last Admin: 12/14/17 07:48 Dose: 0.5 mg Levalbuterol HCl (Xopenex) 0.63 mg INH RQ6 [facility] Last Admin: 12/14/17 07:48 Dose: 0.63 mg Lidocaine (Lidoderm) 1 ea TD DAILY [facility] Last Admin: 12/14/17 08:49 Dose: 1 ea Methylprednisolone (Solu-Medrol) 80 mg IV Q12 [facility] Last Admin: 12/14/17 08:54 Dose: 80 mg Metoprolol Tartrate (Lopressor) 25 mg PO Q12 [facility] Last Admin: 12/14/17 08:49 Dose: 25 mg Montelukast Sodium (Singulair) 10 mg PO HS [facility] Last Admin: 12/13/17 21:03 Dose: 10 mg Morphine Sulfate (Morphine) 2 mg IVP Q4 PRN PRN Reason: Pain, moderate (4-7) Morphine Sulfate (Morphine) 4 mg IVP Q4 PRN PRN Reason: Pain, severe (8-10) Last Admin: 12/14/17 04:19 Dose: 4 mg Nitroglycerin (Nitrostat Sl Tab) 0.4 mg SL Q5M PRN PRN Reason: Pain, Mild (1-3) Last Admin: 12/12/17 06:43 Dose: 0.4 mg Ondansetron HCl (Zofran Odt) 4 mg PO Q6H PRN PRN Reason: Nausea/Vomiting Prochlorperazine (Compazine) 10 mg IM Q6 PRN PRN Reason: Nausea/Vomiting Last Admin: 12/13/17 10:42 Dose: 10 mg Fluticasone/Salmeterol (Advair Diskus 250/50) 1 puff IH Q12 [facility] Last Admin: 12/14/17 08:49 Dose: 1 puff - Labs Labs: 12/13/17 04:45 12/13/17 04:45 - Constitutional Appears: No Acute Distress - Head Exam Head Exam: NORMAL INSPECTION - Eye Exam Eye Exam: EOMI, PERRL - Respiratory Exam Respiratory Exam: Clear to Ausculation Bilateral, NORMAL BREATHING PATTERN. absent: Accessory Muscle Use, Chest Wall Tenderness, Rhonchi, Wheezes - Cardiovascular Exam Cardiovascular Exam: Tachycardia, REGULAR RHYTHM, +S1, +S2 - GI/Abdominal Exam GI & Abdominal Exam: Soft, Normal Bowel Sounds. absent: Distended, Tenderness - Extremities Exam Extremities Exam: absent: Calf Tenderness - Neurological Exam Neurological Exam: Alert, Awake, CN II-XII Intact, Oriented x3 - Psychiatric Exam Psychiatric exam: Normal Mood - Skin Skin Exam: Dry, Warm Assessment and Plan - Assessment and Plan (Free Text) Assessment: A: 42yo M with PMHx Asthma, GERD, and PNA admitted for Multifocal pneumonia. Plan: Will have pulm reconsulted for PNA and ID will follow, c/w IV abx, CXR for today. GI following for pancreatitis, advance diet as tolerated. Cardio following for NSTEMI, c/w ASA. 1- NSTEMI - troponin x3 elevated - pro BNP elevated - EKG 12/13/17: no ST elevation - Cardio consult Dr Patel on board recs appreciated - Pipeline Superintendent consult, recs appreciated - ASA 81 - c/w metoprolol tartrate 25 mg PO BID - lovenox 70 mg sc BID - f/u repeat ECHO 2- Multifocal Pneumonia - Legionela neg, procalcitonin 0.40, f/u Mycoplasma IgM, HIV pending - blood cx NGTD, sputum culture pending - Pulmonology consult Dr Esposito, recs appreciated. - ID consult Dr Swain, recs appreciated - c/w vanco (day 6) - c/w meropenem (day 3) - f/u CXR 3- Pancreatitis - CT 12/11/17: findings compatible with acute pancreatitis - lipase 44 - Advance diet as tolerate - MIVF if not tolerating PO, can run at 125cc/hr LR - morphine 4 mg Q6 PRN for pain - GI Dr Smith consult, recs appreciated 4- Eosinophilia - DDx Churg Cristopher given Pulm/GI issues vs BOOP - no available Rheum portfolio consultant - Steroids started yesterday by Pulm. If current dose is ineffective in improving infiltrates and inflammation of other organ systems (cardiac, GI), would increase to higher pulse doses over a 48-72hour period before tapering. - as per Pulm: considering BOOP following previous infections. If patient' s infiltrates don't resolve, he will probably need a bronch with BAL. If that is inconlusive, he will probably need a VATS with Bx for good tissue sampling. 5- Asthma - Atrovent and Xopenex Q6H - CXR today 6- Transaminitis - likely 2/2 to pancreatitis, getting worked up for indirect bilirubinemia by GI - ABD US: trace increased echogenicity surrounding portal triads diffusely. This can be seen with minimal degrees of the ascending cholangitis which may not have strong clinical symptoms. No intrahepatic bile duct dilatation. No gallstones. - HIDA: negative for ductal and gallblader stones. 7- DVT prophylaxis - lovenox 70 mg sc BID
--- NOTE | 2017-12-14 10:52 | CP.PCM.PN ---
Subjective - Date & Time of Evaluation Date of Evaluation: 12/14/17 Time of Evaluation: 10:52 - Subjective Subjective: ID Note- Pt. seen and examined today in ICU. pt. look better today and more comfortable. He states he feels better and his breathing is better today and he denies any abdominal pian today. he states he has been walking in the room as well today. denies any diarrhea. denies any vomiting. Objective - Vital Signs/Intake and Output Vital Signs (last 24 hours): Temp Pulse Resp BP Pulse Ox 97.9 F 105 H 12 104/68 96 12/14/17 08:00 12/14/17 10:00 12/14/17 10:00 12/14/17 10:00 12/14/17 10:00 Intake and Output: 12/14/17 12/14/17 06:59 18:59 Intake Total 248 800 Output Total 1850 200 Balance -1602 600 - Medications Medications: Current Medications Acetaminophen (Tylenol 325mg Tab) 650 mg PO Q6 PRN PRN Reason: Fever >100.4 F Last Admin: 12/12/17 08:13 Dose: 650 mg Acetaminophen (Tylenol 325mg Tab) 650 mg PO Q6 PRN PRN Reason: Pain, Mild (1-3) Aspirin (Aspirin Chewable) 81 mg PO DAILY [facility] Last Admin: 12/14/17 08:49 Dose: 81 mg Enoxaparin Sodium (Lovenox) 70 mg SC Q12 DARIEL PRN Reason: Protocol Last Admin: 12/14/17 08:50 Dose: 70 mg Vancomycin HCl 750 mg/ Sodium (Chloride) 250 mls @ 166.667 mls/hr IVPB DAILY DARIEL PRN Reason: Protocol Last Admin: 12/13/17 11:00 Dose: 166.667 mls/hr Meropenem 1 gm/ Sodium (Chloride) 100 mls @ 100 mls/hr IVPB Q8 DARIEL PRN Reason: Protocol Last Admin: 12/14/17 08:50 Dose: 100 mls/hr Ipratropium [place]s (Atrovent) 0.5 mg IH RQ6 [facility] Last Admin: 12/14/17 07:48 Dose: 0.5 mg Levalbuterol HCl (Xopenex) 0.63 mg INH RQ6 [facility] Last Admin: 12/14/17 07:48 Dose: 0.63 mg Lidocaine (Lidoderm) 1 ea TD DAILY [facility] Last Admin: 12/14/17 08:49 Dose: 1 ea Methylprednisolone (Solu-Medrol) 80 mg IV Q12 [facility] Last Admin: 12/14/17 08:54 Dose: 80 mg Metoprolol Tartrate (Lopressor) 25 mg PO Q12 [facility] Last Admin: 12/14/17 08:49 Dose: 25 mg Montelukast Sodium (Singulair) 10 mg PO HS [facility] Last Admin: 12/13/17 21:03 Dose: 10 mg Morphine Sulfate (Morphine) 2 mg IVP Q4 PRN PRN Reason: Pain, moderate (4-7) Morphine Sulfate (Morphine) 4 mg IVP Q4 PRN PRN Reason: Pain, severe (8-10) Last Admin: 12/14/17 04:19 Dose: 4 mg Nitroglycerin (Nitrostat Sl Tab) 0.4 mg SL Q5M PRN PRN Reason: Pain, Mild (1-3) Last Admin: 12/12/17 06:43 Dose: 0.4 mg Ondansetron HCl (Zofran Odt) 4 mg PO Q6H PRN PRN Reason: Nausea/Vomiting Prochlorperazine (Compazine) 10 mg IM Q6 PRN PRN Reason: Nausea/Vomiting Last Admin: 12/13/17 10:42 Dose: 10 mg Fluticasone/Salmeterol (Advair Diskus 250/50) 1 puff IH Q12 [facility] Last Admin: 12/14/17 08:49 Dose: 1 puff - Labs Labs: - Additional Findings Additional findings: Constitutional Appears: No Acute Distress - Head Exam Head Exam: ATRAUMATIC - Eye Exam Eye Exam: EOMI - ENT Exam ENT Exam: Normal Oropharynx - Neck Exam Neck exam: Positive for: Full Rom - Respiratory Exam Respiratory Exam: NORMAL BREATHING PATTERN Additional comments: better aeration B/L no wheezing decreased breath sounds at bases - Cardiovascular Exam Cardiovascular Exam: RRR, +S1, +S2 - GI/Abdominal Exam GI & Abdominal Exam: Normal Bowel Sounds, Soft Additional comments: No distention No tenderness no guarding no rebound - Extremities Exam Extremities exam: Positive for: normal inspection - Neurological Exam Neurological exam: Alert, Oriented x 3 Laboratory Results - last 72 hr 12/09/17 12/11/17 12/11/17 21:00 05:10 05:10 WBC RBC Hgb Hct MCV MCH MCHC RDW Plt Count MPV Neut % (Auto) Lymph % (Auto) [place] % (Auto) Eos % (Auto) Baso % (Auto) Neut # (Auto) Lymph # (Auto) [place] # (Auto) Eos # (Auto) Baso # (Auto) Total Counted Neutrophils % (Manual) Band Neutrophils % Lymphocytes % (Manual) Reactive Lymphs % Monocytes % (Manual) Eosinophils % (Manual) Basophils % (Manual) Metamyelocytes % Myelocytes % Promyelocytes % Blast Cells % Plasma Cell % (Manual) Nucleated RBC % Hypersegmented Polys Smudge Cells Toxic Granulation Dohle Bodies Yelena Rods Platelet Estimate Plt Clumps, EDTA Large Platelets Giant Platelets RBC Morphology Polychromasia Hypochromasia (manual) Poikilocytosis (manual Basophilic Stippling Anisocytosis (manual) Microcytosis (manual) Macrocytosis (manual) Spherocytes Sickle Cells Target Cells Tear Drop Cells Ovalocytes Stomatocytes Helmet Cells [place] Bodies Flushing Cells Acanthocytes (Spur) Rouleaux Schistocytes Sodium 143 Potassium 4.5 Chloride 108 H Carbon Dioxide 24 Anion Gap 16 BUN 14 Creatinine 1.9 H Est GFR ( Amer) 47 Est GFR (Non-Af Amer) 39 Random Glucose 73 L Calcium 8.0 L Total Bilirubin 0.6 Direct Bilirubin 0.3 GGT 298 H AST 73 H D ALT 120 H Alkaline Phosphatase 602 H Total Creatine Kinase 86 Troponin I C-React Prot High Sens NT-Pro-B Natriuret Pep 9100 H Total Protein 6.3 Albumin 2.6 L D Globulin 3.7 Albumin/Globulin Ratio 0.7 L Triglycerides 76 Cholesterol 137 LDL Cholesterol Direct 80 HDL Cholesterol 25 L Lipase 24 Urine Color Urine Clarity Urine pH Ur Specific [place] Urine Protein Urine Glucose (UA) Urine Ketones Urine Blood Urine Nitrate Urine Bilirubin Urine Urobilinogen Ur Leukocyte Esterase Urine RBC (Auto) Urine Microscopic WBC Ur Squamous Epith Cells Urine Bacteria Hyaline Casts IgG Anti-Mitochondrial Ab Anti-Smooth Muscle Ab Acetylchol Rcpt Block Ab <15 Complement C3 Complement C4 Mycoplasma pneumon IgG 1.01 H Mycoplasma pneumon IgM 75 12/11/17 12/12/17 12/12/17 17:15 10:00 10:00 WBC 21.6 H RBC 3.96 L Hgb 11.8 L Hct 35.5 MCV 89.7 MCH 29.9 MCHC 33.3 RDW 16.2 H Plt Count 171 MPV 8.5 Neut % (Auto) 40.7 L Lymph % (Auto) 16.9 L [place] % (Auto) 5.3 Eos % (Auto) 36.7 H Baso % (Auto) 0.4 Neut # (Auto) 8.8 H Lymph # (Auto) 3.7 [place] # (Auto) 1.2 H Eos # (Auto) 7.9 H Baso # (Auto) 0.1 Total Counted Cancelled Neutrophils % (Manual) Cancelled Band Neutrophils % Cancelled Lymphocytes % (Manual) Cancelled Reactive Lymphs % Cancelled Monocytes % (Manual) Cancelled Eosinophils % (Manual) Cancelled Basophils % (Manual) Cancelled Metamyelocytes % Cancelled Myelocytes % Cancelled Promyelocytes % Cancelled Blast Cells % Cancelled Plasma Cell % (Manual) Cancelled Nucleated RBC % Cancelled Hypersegmented Polys Cancelled Smudge Cells Cancelled Toxic Granulation Cancelled Dohle Bodies Cancelled Yelena Rods Cancelled Platelet Estimate Cancelled Plt Clumps, EDTA Cancelled Large Platelets Cancelled Giant Platelets Cancelled RBC Morphology Cancelled Polychromasia Cancelled Hypochromasia (manual) Cancelled Poikilocytosis (manual Cancelled Basophilic Stippling Cancelled Anisocytosis (manual) Cancelled Microcytosis (manual) Cancelled Macrocytosis (manual) Cancelled Spherocytes Cancelled Sickle Cells Cancelled Target Cells Cancelled Tear Drop Cells Cancelled Ovalocytes Cancelled Stomatocytes Cancelled Helmet Cells Cancelled [place] Bodies Cancelled Breanna Cells Cancelled Acanthocytes (Spur) Cancelled Rouleaux Cancelled Schistocytes Cancelled Sodium 132 Potassium 4.4 Chloride 100 Carbon Dioxide 20 L Anion Gap 16 BUN 11 Creatinine 1.6 H Est GFR ( Amer) 57 Est GFR (Non-Af Amer) 47 Random Glucose 78 Calcium 8.1 L Total Bilirubin 1.1 Direct Bilirubin GGT AST 81 H ALT 118 H Alkaline Phosphatase 865 H D Total Creatine Kinase Troponin I C-React Prot High Sens NT-Pro-B Natriuret Pep Total Protein 6.6 Albumin 2.7 L Globulin 3.9 Albumin/Globulin Ratio 0.7 L Triglycerides Cholesterol LDL Cholesterol Direct HDL Cholesterol Lipase Urine Color Urine Clarity Urine pH Ur Specific [place] Urine Protein Urine Glucose (UA) Urine Ketones Urine Blood Urine Nitrate Urine Bilirubin Urine Urobilinogen Ur Leukocyte Esterase Urine RBC (Auto) Urine Microscopic WBC Ur Squamous Epith Cells Urine Bacteria Hyaline Casts IgG Anti-Mitochondrial Ab Negative Anti-Smooth Muscle Ab Negative Acetylchol Rcpt Block Ab Complement C3 Complement C4 Mycoplasma pneumon IgG Mycoplasma pneumon IgM 12/12/17 12/12/17 12/12/17 10:00 11:20 18:40 WBC RBC Hgb Hct MCV MCH MCHC RDW Plt Count MPV Neut % (Auto) Lymph % (Auto) [place] % (Auto) Eos % (Auto) Baso % (Auto) Neut # (Auto) Lymph # (Auto) [place] # (Auto) Eos # (Auto) Baso # (Auto) Total Counted Neutrophils % (Manual) Band Neutrophils % Lymphocytes % (Manual) Reactive Lymphs % Monocytes % (Manual) Eosinophils % (Manual) Basophils % (Manual) Metamyelocytes % Myelocytes % Promyelocytes % Blast Cells % Plasma Cell % (Manual) Nucleated RBC % Hypersegmented Polys Smudge Cells Toxic Granulation Dohle Bodies Yelena Rods Platelet Estimate Plt Clumps, EDTA Large Platelets Giant Platelets RBC Morphology Polychromasia Hypochromasia (manual) Poikilocytosis (manual Basophilic Stippling Anisocytosis (manual) Microcytosis (manual) Macrocytosis (manual) Spherocytes Sickle Cells Target Cells Tear Drop Cells Ovalocytes Stomatocytes Helmet Cells [place] Bodies Flushing Cells Acanthocytes (Spur) Rouleaux Schistocytes Sodium Potassium Chloride Carbon Dioxide Anion Gap BUN Creatinine Est GFR ( Amer) Est GFR (Non-Af Amer) Random Glucose Calcium Total Bilirubin Direct Bilirubin GGT AST ALT Alkaline Phosphatase Total Creatine Kinase Troponin I 0.8770 H* 0.8390 H* C-React Prot High Sens NT-Pro-B Natriuret Pep Total Protein Albumin Globulin Albumin/Globulin Ratio Triglycerides Cholesterol LDL Cholesterol Direct HDL Cholesterol Lipase Urine Color Urine Clarity Urine pH Ur Specific [place] Urine Protein Urine Glucose (UA) Urine Ketones Urine Blood Urine Nitrate Urine Bilirubin Urine Urobilinogen Ur Leukocyte Esterase Urine RBC (Auto) Urine Microscopic WBC Ur Squamous Epith Cells Urine Bacteria Hyaline Casts IgG 1425.3 Anti-Mitochondrial Ab Anti-Smooth Muscle Ab Acetylchol Rcpt Block Ab Complement C3 Complement C4 Mycoplasma pneumon IgG Mycoplasma pneumon IgM 12/12/17 12/12/17 12/13/17 18:40 22:10 04:45 WBC RBC Hgb Hct MCV MCH MCHC RDW Plt Count MPV Neut % (Auto) Lymph % (Auto) [place] % (Auto) Eos % (Auto) Baso % (Auto) Neut # (Auto) Lymph # (Auto) [place] # (Auto) Eos # (Auto) Baso # (Auto) Total Counted Neutrophils % (Manual) Band Neutrophils % Lymphocytes % (Manual) Reactive Lymphs % Monocytes % (Manual) Eosinophils % (Manual) Basophils % (Manual) Metamyelocytes % Myelocytes % Promyelocytes % Blast Cells % Plasma Cell % (Manual) Nucleated RBC % Hypersegmented Polys Smudge Cells Toxic Granulation Dohle Bodies Yelena Rods Platelet Estimate Plt Clumps, EDTA Large Platelets Giant Platelets RBC Morphology Polychromasia Hypochromasia (manual) Poikilocytosis (manual Basophilic Stippling Anisocytosis (manual) Microcytosis (manual) Macrocytosis (manual) Spherocytes Sickle Cells Target Cells Tear Drop Cells Ovalocytes Stomatocytes Helmet Cells [place] Bodies Breanna Cells Acanthocytes (Spur) Rouleaux Schistocytes Sodium 131 L Potassium 5.3 H Chloride 96 L Carbon Dioxide 22 Anion Gap 18 BUN 13 Creatinine 1.3 Est GFR ( Amer) > 60 Est GFR (Non-Af Amer) > 60 Random Glucose 55 L Calcium 8.1 L Total Bilirubin 0.8 Direct Bilirubin GGT AST 83 H ALT 105 H Alkaline Phosphatase 761 H Total Creatine Kinase Troponin I 1.4100 H* C-React Prot High Sens > 15.00 H NT-Pro-B Natriuret Pep Total Protein 6.6 Albumin 2.7 L Globulin 3.9 Albumin/Globulin Ratio 0.7 L Triglycerides Cholesterol LDL Cholesterol Direct HDL Cholesterol Lipase Urine Color Yellow Urine Clarity Clear Urine pH 6.0 Ur Specific [place] 1.025 Urine Protein 30 Urine Glucose (UA) Negative Urine Ketones 15 Urine Blood Trace-intact Urine Nitrate Negative Urine Bilirubin Negative Urine Urobilinogen 0.2 Ur Leukocyte Esterase Negative Urine RBC (Auto) 9 H Urine Microscopic WBC 1 Ur Squamous Epith Cells < 1 Urine Bacteria Rare Hyaline Casts 1 IgG Anti-Mitochondrial Ab Anti-Smooth Muscle Ab Acetylchol Rcpt Block Ab Complement C3 Complement C4 Mycoplasma pneumon IgG Mycoplasma pneumon IgM 12/13/17 12/13/17 12/13/17 04:45 09:42 16:17 WBC 21.6 H RBC 3.82 L Hgb 11.4 L Hct 34.4 L MCV 90.0 MCH 29.8 MCHC 33.1 RDW 16.3 H Plt Count 199 MPV Neut % (Auto) Lymph % (Auto) [place] % (Auto) Eos % (Auto) Baso % (Auto) Neut # (Auto) Lymph # (Auto) [place] # (Auto) Eos # (Auto) Baso # (Auto) Total Counted Neutrophils % (Manual) Band Neutrophils % Lymphocytes % (Manual) Reactive Lymphs % Monocytes % (Manual) Eosinophils % (Manual) Basophils % (Manual) Metamyelocytes % Myelocytes % Promyelocytes % Blast Cells % Plasma Cell % (Manual) Nucleated RBC % Hypersegmented Polys Smudge Cells Toxic Granulation Dohle Bodies Yelena Rods Platelet Estimate Plt Clumps, EDTA Large Platelets Giant Platelets RBC Morphology Polychromasia Hypochromasia (manual) Poikilocytosis (manual Basophilic Stippling Anisocytosis (manual) Microcytosis (manual) Macrocytosis (manual) Spherocytes Sickle Cells Target Cells Tear Drop Cells Ovalocytes Stomatocytes Helmet Cells [place] Bodies Breanna Cells Acanthocytes (Spur) Rouleaux Schistocytes Sodium Potassium Chloride Carbon Dioxide Anion Gap BUN Creatinine Est GFR ( Amer) Est GFR (Non-Af Amer) Random Glucose Calcium Total Bilirubin Direct Bilirubin GGT AST ALT Alkaline Phosphatase Total Creatine Kinase 273 H Troponin I C-React Prot High Sens NT-Pro-B Natriuret Pep Total Protein Albumin Globulin Albumin/Globulin Ratio Triglycerides Cholesterol LDL Cholesterol Direct HDL Cholesterol Lipase Urine Color Urine Clarity Urine pH Ur Specific [place] Urine Protein Urine Glucose (UA) Urine Ketones Urine Blood Urine Nitrate Urine Bilirubin Urine Urobilinogen Ur Leukocyte Esterase Urine RBC (Auto) Urine Microscopic WBC Ur Squamous Epith Cells Urine Bacteria Hyaline Casts IgG Anti-Mitochondrial Ab Anti-Smooth Muscle Ab Acetylchol Rcpt Block Ab Complement C3 135.0 Complement C4 45.7 H Mycoplasma pneumon IgG Mycoplasma pneumon IgM Microbiology 12/12/17 11:05 Blood Blood Culture - Preliminary NO GROWTH AFTER 48 HOURS 12/12/17 10:50 Blood Blood Culture - Preliminary NO GROWTH AFTER 48 HOURS 12/12/17 10:30 Urine,Clean Catch Urine Culture - Final No Growth (<1,000 CFU/ML) 12/09/17 15:26 Blood-Venous Blood Culture - Preliminary NO GROWTH AFTER 4 DAYS 12/09/17 15:11 Blood-Venous Blood Culture - Preliminary NO GROWTH AFTER 4 DAYS 12/09/17 10:18 Urine,Clean Catch Urine Culture - Final No Growth (<1,000 CFU/ML) Accession No. : [id number] Patient Name / ID : ANTHONY FERNANDEZ / [id number] Exam Date : 12/13/2017 10:57:51 ( Approved ) Study Comment : Sex / Age : M / 42Y Creator : Sonya Leyva MD Dictator : Sonya Leyva MD Soils Engineer : Project Economist : Sonya Leyva MD Approver2 : Report Date : 12/13/2017 12:18:37 My Comment : This report is currently processing and HAS NOT BEEN OFFICIALLY SIGNED BY THE PHYSICIAN - ESTIMATED TIME OF APPROVAL IS 12/13/2017 12:24. HISTORY: wheezing COMPARISON: 12/12/2017. FINDINGS: LUNGS: The right lung is clear. There is persistent consolidation in the left upper and lower. PLEURA: Suspect small left pleural effusion, no pneumothorax apparent. CARDIOVASCULAR: Normal. OSSEOUS STRUCTURES: No significant abnormalities. VISUALIZED UPPER ABDOMEN: Normal. OTHER FINDINGS: None. IMPRESSION: No significant interval change in left upper lobe consolidation. Suspect small left pleural effusion. Assessment and Plan (1) Pneumonia Status: Acute (2) Elevated liver enzymes Status: Acute (3) Pancreatitis Status: Acute (4) Leukocytosis Status: Acute (5) Fever Status: Acute - Assessment and Plan (Free Text) Assessment: A/p- 42 year old male admitted with multifocal pneumonia and also found to have elevated liver enzymes. clinically improved today. afebrile today so far leukocytosis with Eosinophilia still present. elevated liver enzymes are trending down . chest ct report- multifocal pneumonia urine legionella AG- negative abd ct- pancreatitis without psudocyst as per report. HIDA scan- no dcutal obstruction as per report cxr report- PAIGE consolidation 1. pneumonia 2.pancreatitis 3.asthma 4.leukocytosis with eosinophila ( asthma vs churg rhys in light of unresolving pulm infiltrate and also GI involvement). blood cx- neg x 2 urine cx- neg plan- advise to continue with IV vancomycin. day #4 keep vanco trough <15. advise to continue with meropenem day #2. Eosinophilias could be secondary to asthma itself, also NSAIDS or cephalopsporins or aspirin and almost any medication can cause elevated eos vs churg rhys disease. work up for Churg staruss is in progress. pt. seen by pulm and started on steroids and feeling better on this. pancreatitis management as per GI. All above d/w patient and his and all their questions were answered. they verbalize full understanding of all above and agree with above plan of care. ICU time 45 minutes.
--- NOTE | 2017-12-14 12:23 | CP.CCUPN ---
CCU Subjective - Physician Review Subjective (Free Text): Awake and alert, has refused today's AM bloodwork, otherwise in no distress, still appears dyspniec on exertion with getting OOB. Other VS and I/Os reviewed. ROS: No other pertinent negs or positives on 10+ system review. PMSFH: All other Nursing and physician documentation reviewed to date; no new pertinent info noted relevant to current medical problems. EXAM- HEENT: no icterus, no gaze preference, pupils 3 mm equal, no icterus NECK: No JVD, supple, carotids equal upstroke bilat/no bruits CHEST: decreased BS bases, no wheezes audible HEART: regular distant, tachy S1S2, no rubs. ABD: soft, no distention, no tympany, no palp tenderness, BS hypoactive. EXT: No edema / anasarca bilat. No peripheral/ digital cyanosis, no calf tenderness or palpable cords, distal pulses intact and symmetrical. NEURO: no gross focal motor deficits. SKIN: no rashes, warm and dry, diffuse vitilaginous lesions over entrie body and extremities. LABS: WBC= 21.6 HGB= 11.4 PLTs= 199K No coags tested. No recent ABG. PCT normal on 12/09/17. Na= 131 K= 5.3 HCO3= 22 CL= 96 BUN/Cr= 13/1.3 BS= 55 IMPRESSION / MAJOR PROBLEMS NOW: 1. 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 PLAN: 1. Steroids started yesterday by Pulm. If current dose is ineffective in improving infiltrates and inflammation of other organ systems (cardiac, GI), would increase to higher pulse doses over a 48-72hour period before tapering. Try to get Rheumatology eval. 2. Check Lipid panel. Re-check and re-image Liver, GB, Pancreas again. 3. Check Coags and ABG if patient allows. Otherwise, no need for assisted breathing support at this time. 4. Kayexalate, am aware he is off LR IVFs. 5. Repeat ECHO today looks abnormal (preliminary, my interp) with depressed LV motion. Aware of 12/10/17 ECHO report. Needs Cardio f/u. Lasix prn. CCU Objective - Vital Signs / Intake & Output Vital Signs (Last 4 hours): Vital Signs Temp Pulse Resp BP Pulse Ox 12/14/17 12:00 97.3 F L 95 H 16 104/70 95 12/14/17 10:00 105 H 12 104/68 96 12/14/17 08:49 102 H 104/72 Intake and Output (Last 8hrs): Intake & Output 12/13/17 12/14/17 12/14/17 22:59 06:59 14:59 Intake Total 70 178 800 Output Total 1075 775 200 Balance -1005 -597 600 Weight 148 lb 8 oz Intake: IV 20 18 Intake, Piggyback 100 100 Oral 50 60 700 Output: Urine 1075 775 200 Urine, Voided 1075 775 200 - Medications Active Medications: Active Medications Generic Name Dose Route Start Last Admin Trade Name Freq PRN Reason Stop Dose Admin Acetaminophen 650 mg 12/09/17 18:08 12/12/17 08:13 Tylenol 325mg Tab PO 650 mg Q6 PRN Administration Fever >100.4 F Acetaminophen 650 mg 12/11/17 07:00 Tylenol 325mg Tab PO Q6 PRN Pain, Mild (1-3) Aspirin 81 mg 12/13/17 09:00 12/14/17 08:49 Aspirin Chewable PO 81 mg DAILY DARIEL Administration Enoxaparin Sodium 70 mg 12/12/17 12:18 12/14/17 08:50 Lovenox SC 70 mg Q12 DARIEL Administration Protocol Vancomycin HCl 750 mg/ Sodium 250 mls @ 166.667 mls/hr 12/12/17 09:00 11:00 Chloride IVPB 166.667 mls/hr DAILY DARIEL Administration Protocol Meropenem 1 gm/ Sodium 100 mls @ 100 mls/hr 12/12/17 17:00 12/14/17 08:50 Chloride IVPB 100 mls/hr Q8 DARIEL Administration Protocol Ipratropium [place] 0.5 mg 12/13/17 14:00 12/14/17 07:48 Atrovent IH 0.5 mg RQ6 DARIEL Administration Levalbuterol HCl 0.63 mg 12/12/17 08:00 12/14/17 07:48 Xopenex INH 0.63 mg RQ6 DARIEL Administration Lidocaine 1 ea 12/10/17 10:00 12/14/17 08:49 Lidoderm TD 1 ea DAILY DARIEL Administration Methylprednisolone 80 mg 12/13/17 21:00 12/14/17 08:54 Solu-Medrol IV 80 mg Q12 DARIEL Administration Metoprolol Tartrate 25 mg 12/13/17 09:00 12/14/17 08:49 Lopressor PO 25 mg Q12 DARIEL Administration Montelukast Sodium 10 mg 12/13/17 22:00 12/13/17 21:03 Singulair PO 10 mg HS DARIEL Administration Morphine Sulfate 2 mg 12/11/17 15:26 Morphine IVP Q4 PRN Pain, moderate (4-7) Morphine Sulfate 4 mg 12/14/17 04:15 12/14/17 04:19 Morphine IVP 4 mg Q4 PRN Administration Pain, severe (8-10) Nitroglycerin 0.4 mg 12/12/17 06:32 12/12/17 06:43 Nitrostat Sl Tab SL 0.4 mg Q5M PRN Administration Pain, Mild (1-3) Ondansetron HCl 4 mg 12/13/17 10:05 Zofran Odt PO Q6H PRN Nausea/Vomiting Prochlorperazine 10 mg 12/13/17 10:04 12/13/17 10:42 Compazine IM 10 mg Q6 PRN Administration Nausea/Vomiting Fluticasone/Salmeterol 1 puff 12/10/17 21:00 12/14/17 08:49 Advair Diskus 250/50 IH 1 puff Q12 DARIEL Administration - Patient Studies Lab Studies: Microbiology Studies 12/12/17 11:05 Blood Culture - Preliminary Blood NO GROWTH AFTER 48 HOURS 12/12/17 10:50 Blood Culture - Preliminary Blood NO GROWTH AFTER 48 HOURS 12/12/17 10:30 Urine Culture - Final Urine,Clean Catch No Growth (<1,000 CFU/ML) 12/09/17 15:26 Blood Culture - Preliminary Blood-Venous NO GROWTH AFTER 4 DAYS 12/09/17 15:11 Blood Culture - Preliminary Blood-Venous NO GROWTH AFTER 4 DAYS Lab Studies 12/13/17 12/12/17 12/11/17 Range/Units 16:17 18:40 05:10 GGT (8-78) U/L C-React Prot High Sens > 15.00 H (1.00-3.00) mg/L Acetylchol Rcpt Block Ab <15 (<15) % inhibit Complement C3 135.0 (88.0-165.0) mg/dL Complement C4 45.7 H (14.0-44.0) mg/dL Mycoplasma pneumon IgM (<770) U/mL 12/11/17 12/09/17 Range/Units 05:10 21:00 GGT 298 H (8-78) U/L C-React Prot High Sens (1.00-3.00) mg/L Acetylchol Rcpt Block Ab (<15) % inhibit Complement C3 (88.0-165.0) mg/dL Complement C4 (14.0-44.0) mg/dL Mycoplasma pneumon IgM 75 (<770) U/mL Laboratory Results - last 24 hr 12/09/17 12/11/17 12/11/17 21:00 05:10 05:10 GGT 298 H C-React Prot High Sens Acetylchol Rcpt Block Ab <15 Complement C3 Complement C4 Mycoplasma pneumon IgM 75 12/12/17 12/13/17 18:40 16:17 GGT C-React Prot High Sens > 15.00 H Acetylchol Rcpt Block Ab Complement C3 135.0 Complement C4 45.7 H Mycoplasma pneumon IgM Critical Care Progress Note - Nutrition Nutrition: Nutrition Category Date Time Status Liquid Diet [DIET] Diets 12/14/17 Breakfast Active
--- NOTE | 2017-12-14 13:29 | CARD ---
APPROVED REPORT EKG Measurement Heart [id number] [place] 142P56 [id number] <Conclusion> Sinus tachycardia Rightward axis Cannot rule out Anterior infarct, age undetermined Abnormal ECG
--- NOTE | 2017-12-14 13:38 | CARD ---
APPROVED REPORT EKG Measurement Heart [id number] [place] 158P61 [id number] <Conclusion> Sinus tachycardia Rightward axis Possible Anterior infarct, age undetermined Abnormal ECG
[2017-12-14 15:17] LABS: BASO # 0.1 K/uL (0.0-0.2); BASO % 0.5 % (0.0-2.0); EOS # 0.3 K/uL (0.0-0.7); EOS % 2.7 % (0.0-4.0); HEMOGLOBIN 11.3 g/dL (12.0-18.0); LYMPH # 1.6 K/uL (1.0-4.3); MEAN CELL VOLUME 89.5 fl (80.0-94.0); MEAN CORPUSCULAR HEMOGLOBIN 29.7 pg (27.0-31.0); MEAN CORPUSCULAR HGB CONC 33.2 g/dL (33.0-37.0); MEAN PLATELET VOLUME 9.3 fl (7.2-11.7); MONO # 0.4 K/uL (0.0-0.8); MONO % 3.4 % (0.0-10.0); NEUT # 8.5 K/uL (1.8-7.0); NEUT % 78.4 % (50.0-75.0); RBC 3.79 Mil/uL (4.40-5.90); WHITE BLOOD COUNT 10.9 K/uL (4.8-10.8)
[2017-12-14 15:56] LABS: ALB/GLOB RATIO 0.7 (1.0-2.1); ALT/SGPT 101 U/L (21-72); AST/SGOT 64 U/L (17-59); BLOOD UREA NITROGEN 22 mg/dl (9-20); CALCIUM 8.2 mg/dL (8.4-10.2); GFR AFRICAN-AMERICAN > 60; GFR NON-AFRICAN AMERICAN > 60
[2017-12-14] MEDS ORDERED: Morphine 4 MG/ML VIAL IVP PRN (16:30)
--- NOTE | 2017-12-14 17:07 | CP.PCM.PN ---
Subjective - Date & Time of Evaluation Date of Evaluation: 12/14/17 Time of Evaluation: 17:07 - Subjective Subjective: ECHO SHOWS MOD DECREASED EF, PHTN, MR, TR AND DILATED IVC. Objective - Vital Signs/Intake and Output Vital Signs (last 24 hours): Temp Pulse Resp BP Pulse Ox 97.2 F L 94 H 15 100/73 95 12/14/17 16:00 12/14/17 16:00 12/14/17 16:00 12/14/17 16:00 12/14/17 12:00 Intake and Output: 12/14/17 12/14/17 06:59 18:59 Intake Total 248 1150 Output Total 1850 500 Balance -1602 650 - Medications Medications: Current Medications Acetaminophen (Tylenol 325mg Tab) 650 mg PO Q6 PRN PRN Reason: Fever >100.4 F Last Admin: 12/12/17 08:13 Dose: 650 mg Acetaminophen (Tylenol 325mg Tab) 650 mg PO Q6 PRN PRN Reason: Pain, Mild (1-3) Aspirin (Aspirin Chewable) 81 mg PO DAILY [facility] Last Admin: 12/14/17 08:49 Dose: 81 mg Enoxaparin Sodium (Lovenox) 70 mg SC Q12 DARIEL PRN Reason: Protocol Last Admin: 12/14/17 08:50 Dose: 70 mg Vancomycin HCl 750 mg/ Sodium (Chloride) 250 mls @ 166.667 mls/hr IVPB DAILY DARIEL PRN Reason: Protocol Last Admin: 12/14/17 16:23 Dose: 166.667 mls/hr Meropenem 1 gm/ Sodium (Chloride) 100 mls @ 100 mls/hr IVPB Q8 DARIEL PRN Reason: Protocol Last Admin: 12/14/17 16:23 Dose: 100 mls/hr Ipratropium [place] (Atrovent) 0.5 mg IH RQ6 DARIEL Last Admin: 12/14/17 13:31 Dose: Not Given Levalbuterol HCl (Xopenex) 0.63 mg INH RQ6 [facility]ARIEL Last Admin: 12/14/17 13:31 Dose: Not Given Lidocaine (Lidoderm) 1 ea TD DAILY [facility] Last Admin: 12/14/17 08:49 Dose: 1 ea Methylprednisolone (Solu-Medrol) 80 mg IV Q12 [facility]ARIEL Last Admin: 04/09/18 08:54 Dose: 80 mg Metoprolol Tartrate (Lopressor) 25 mg PO Q12 [facility] Last Admin: 12/14/17 08:49 Dose: 25 mg Montelukast Sodium (Singulair) 10 mg PO HS [facility] Last Admin: 12/13/17 21:03 Dose: 10 mg Morphine Sulfate (Morphine) 2 mg IVP Q4 PRN PRN Reason: Pain, moderate (4-7) Last Admin: 12/14/17 16:38 Dose: 2 mg Morphine Sulfate (Morphine) 4 mg IVP Q4 PRN PRN Reason: Pain, severe (8-10) Nitroglycerin (Nitrostat Sl Tab) 0.4 mg SL Q5M PRN PRN Reason: Pain, Mild (1-3) Last Admin: 12/12/17 06:43 Dose: 0.4 mg Ondansetron HCl (Zofran Odt) 4 mg PO Q6H PRN PRN Reason: Nausea/Vomiting Prochlorperazine (Compazine) 10 mg IM Q6 PRN PRN Reason: Nausea/Vomiting Last Admin: 12/13/17 10:42 Dose: 10 mg Fluticasone/Salmeterol (Advair Diskus 250/50) 1 puff IH Q12 [facility] Last Admin: 12/14/17 08:49 Dose: 1 puff - Labs Labs: 12/14/17 14:50 12/14/17 14:50 Assessment and Plan (1) Cardiomyopathy Status: Acute (2) Elevated troponin Status: Acute (3) ARF (acute renal failure) Status: Acute (4) Eosinophilia Status: Acute (5) RTI (respiratory tract infection) Status: Acute (6) Abnormal EKG Status: Acute (7) Elevated liver enzymes Status: Acute (8) Pancreatitis Status: Acute (9) Malnutrition Status: Acute - Assessment and Plan (Free Text) Plan: WILL START PT ON LASIX 40 Q12, COREG LOW DOSE, GOAL BP IS MAP OF 60-65. MONITOR LYTES. FOLLOW TROP AND BNP. WHEN STABLE WILL NEED CATH.
--- NOTE | 2017-12-14 19:53 | RAD ---
HISTORY: wheezing COMPARISON: 12/12/2017. FINDINGS: LUNGS: The right lung is clear. There is persistent consolidation in the left upper and lower. PLEURA: Suspect small left pleural effusion, no pneumothorax apparent. CARDIOVASCULAR: Normal. OSSEOUS STRUCTURES: No significant abnormalities. VISUALIZED UPPER ABDOMEN: Normal. OTHER FINDINGS: None. IMPRESSION: No significant interval change in left upper lobe consolidation. Suspect small left pleural effusion.
[2017-12-15] MEDS: Levalbuterol 0.63 MG/3 ML Inhal Soln UD INH SCH ×4 (00:59→19:42)
[2017-12-15] MEDS: Ipratropium 0.02% Inhal Soln (0.5 mg/2.5 ml) UD IH SCH ×4 (00:59→19:41)
[2017-12-15] MEDS: Meropenem 1 GM in Sodium Chloride 0.9% 100 ML IVPB SCH ×3 (01:05→16:48)
--- NOTE | 2017-12-15 08:18 | CP.PCM.PN ---
Subjective - Date & Time of Evaluation Date of Evaluation: 12/15/17 Time of Evaluation: 08:18 - Subjective Subjective: ICU day 4 Patient seen and examined at bedside, patient reports feeling better. He states good appetite, tolerating diet very well. Denies chest pain or abdominal. Ambulating. Afebrile, no chills, nausea or vomiting. Had a normal BM yesterday. Objective - Vital Signs/Intake and Output Vital Signs (last 24 hours): Temp Pulse Resp BP Pulse Ox 97.3 F L 86 15 102/73 96 12/15/17 00:05 12/15/17 04:15 12/15/17 04:15 12/15/17 00:05 12/15/17 00:05 Intake and Output: 12/15/17 12/15/17 06:59 18:59 Intake Total 340 Output Total 1250 Balance -910 - Medications Medications: Current Medications Acetaminophen (Tylenol 325mg Tab) 650 mg PO Q6 PRN PRN Reason: Fever >100.4 F Last Admin: 12/12/17 08:13 Dose: 650 mg Acetaminophen (Tylenol 325mg Tab) 650 mg PO Q6 PRN PRN Reason: Pain, Mild (1-3) Aspirin (Aspirin Chewable) 81 mg PO DAILY [facility] Last Admin: 12/14/17 08:49 Dose: 81 mg Carvedilol (Coreg) 3.125 mg PO Q12 [facility] Last Admin: 12/14/17 22:04 Dose: 3.125 mg Enoxaparin Sodium (Lovenox) 70 mg SC Q12 DARIEL PRN Reason: Protocol Last Admin: 12/14/17 22:08 Dose: 70 mg Furosemide (Lasix) 40 mg IVP Q12 DARIEL Last Admin: 12/14/17 22:06 Dose: 40 mg Vancomycin HCl 750 mg/ Sodium (Chloride) 250 mls @ 166.667 mls/hr IVPB DAILY DARIEL PRN Reason: Protocol Last Admin: 12/14/17 16:23 Dose: 166.667 mls/hr Meropenem 1 gm/ Sodium (Chloride) 100 mls @ 100 mls/hr IVPB Q8 DARIEL PRN Reason: Protocol Last Admin: 12/15/17 01:05 Dose: 100 mls/hr Ipratropium [place] (Atrovent) 0.5 mg IH RQ6 [facility] Last Admin: 12/15/17 07:16 Dose: 0.5 mg Levalbuterol HCl (Xopenex) 0.63 mg INH RQ6 [facility] Last Admin: 12/15/17 07:16 Dose: 0.63 mg Lidocaine (Lidoderm) 1 ea TD DAILY [facility] Last Admin: 12/14/17 08:49 Dose: 1 ea Methylprednisolone (Solu-Medrol) 80 mg IV Q12 [facility] Last Admin: 12/14/17 22:07 Dose: 80 mg Montelukast Sodium (Singulair) 10 mg PO HS [facility] Last Admin: 12/14/17 22:03 Dose: 10 mg Morphine Sulfate (Morphine) 2 mg IVP Q4 PRN PRN Reason: Pain, moderate (4-7) Last Admin: 12/14/17 16:38 Dose: 2 mg Morphine Sulfate (Morphine) 4 mg IVP Q4 PRN PRN Reason: Pain, severe (8-10) Last Admin: 12/15/17 01:57 Dose: 4 mg Nitroglycerin (Nitrostat Sl Tab) 0.4 mg SL Q5M PRN PRN Reason: Pain, Mild (1-3) Last Admin: 12/12/17 06:43 Dose: 0.4 mg Ondansetron HCl (Zofran Odt) 4 mg PO Q6H PRN PRN Reason: Nausea/Vomiting Prochlorperazine (Compazine) 10 mg IM Q6 PRN PRN Reason: Nausea/Vomiting Last Admin: 12/13/17 10:42 Dose: 10 mg Fluticasone/Salmeterol (Advair Diskus 250/50) 1 puff IH Q12 [facility] Last Admin: 12/14/17 22:02 Dose: 1 puff - Labs Labs: 12/14/17 14:50 12/14/17 14:50 - Constitutional Appears: No Acute Distress - Head Exam Head Exam: NORMAL INSPECTION - Eye Exam Eye Exam: EOMI, PERRL - Respiratory Exam Respiratory Exam: Clear to Ausculation Bilateral, NORMAL BREATHING PATTERN. absent: Accessory Muscle Use, Chest Wall Tenderness - Cardiovascular Exam Cardiovascular Exam: Tachycardia, REGULAR RHYTHM, +S1, +S2. absent: Murmur - GI/Abdominal Exam GI & Abdominal Exam: Soft, Normal Bowel Sounds. absent: Distended, Tenderness - Neurological Exam Neurological Exam: Alert, Awake, Oriented x3 - Psychiatric Exam Psychiatric exam: Normal Mood - Skin Skin Exam: Dry, Warm Assessment and Plan - Assessment and Plan (Free Text) Assessment: A: 42yo M with PMHx Asthma, GERD, and PNA admitted for Multifocal pneumonia. Plan: PULM and ID on board, c/w IV abx. Will reconsult GI for pancreatitis if needed, advance diet as tolerated. Cardio following for NSTEMI, c/w ASA. 1- NSTEMI, stable - troponin x3 elevated - pro BNP elevated - EKG 12/13/17: no ST elevation - Cardio consult Dr Patel on board recs appreciated - Time Piece Repairer consult, recs appreciated - ASA 81 - c/w metoprolol tartrate 25 mg PO BID - lovenox 70 mg sc BID - start Lasix 40 mg IV BID - start coreg 3.125 mg PO BID - Echo: EF 35-40%, mild t moderate MR, IVC is dilated, generalized moderate hypokinesia. 2- Multifocal Pneumonia - f/u Mycoplasma IgM, HIV pending - sputum culture pending - Pulmonology consult Dr Esposito, recs appreciated. - ID consult Dr Swain, recs appreciated - c/w vanco (day 6) - c/w meropenem (day 3) - f/u CXR 12/13: no significant interval change on L upper lobe consolidation. - considering PICC line insertion 3- Pancreatitis, improving - CT 12/11/17: findings compatible with acute pancreatitis - morphine 4 mg Q6 PRN for pain - GI Dr Heart sign off, reconsult if needed. 4- Eosinophilia - DDx Churg Cristopher vs BOOP - no available Rheum press set up person - c/w Solumedrol 80 mg IV Q12. - as per Pulm: considering BOOP following previous infections. If patient's infiltrates don't resolve, he will probably need a bronch with BAL. If that is inconlusive, he will probably need a VATS with Bx for good tissue sampling. 5- Asthma - Atrovent and Xopenex Q6H 6- Transaminitis, improving - trending down - will monitor 7- DVT prophylaxis - lovenox 70 mg sc BID
--- NOTE | 2017-12-15 08:29 | CARD ---
APPROVED REPORT EXAM: Two-dimensional and M-mode echocardiogram with Doppler and color Doppler. Other Information Quality : GoodRhythm : NSR INDICATION Abnormal EKG/Arrhythmia POSITIVE TROPONIN 2D DIMENSIONS IVSd1.09 (0.7-1.1cm)LVDd4.90 (3.9-5.9cm) LVOT Diameter2.31 (1.8-2.4cm)PWd1.16 (0.7-1.1cm) IVSs1.31 (0.8-1.2cm)LVDs4.32 (2.5-4.0cm) FS (%) 11.8 %PWs1.13 (0.8-1.2cm) M-Mode DIMENSIONS Left Atrium (MM)3.56 (2.5-4.0cm)IVSd0.82 (0.7-1.1cm) Aortic Root4.03 (2.2-3.7cm)LVDd5.79 (4.0-5.6cm) Aortic Cusp Exc.2.47 (1.5-2.0cm)PWd0.91 (0.7-1.1cm) IVSs1.24 cmFS (%) 21 % LVDs4.56 (2.0-3.8cm)PWs1.32 cm Mitral Valve MV DECEL [id number] ratio0.0 MVA (PHT)3.01cm2 TDI E/Lateral E'0.0E/Medial E'0.0 LEFT VENTRICLE The left ventricle is normal size. There is normal left ventricular wall thickness. Left ventricle systolic function is moderately impaired. The Ejection Fraction is 35-40%. Generalised moderate hypokinesia, particularly pronounced in the basal hsalf of the septum Transmitral Doppler flow pattern is Grade I-abnormal relaxation pattern. RIGHT VENTRICLE The right ventricle is normal size. There is normal right ventricular wall thickness. The right ventricular systolic function is normal. ATRIA The left atrium size is normal. The right atrium size is normal. AORTIC VALVE The aortic valve is normal in structure. No aortic regurgitation is present. There is no aortic valvular stenosis. MITRAL VALVE The mitral valve is normal in structure. There is no evidence of mitral valve prolapse. There is no mitral valve stenosis. Mitral regurgitation is mild to moderate. TRICUSPID VALVE The tricuspid valve is normal in structure. There is trace tricuspid regurgitation. Right ventricular systolic pressure is estimated at 26 mmHg. There is no pulmonary hypertension. PULMONIC VALVE The pulmonary valve is normal in structure. There is no pulmonic valvular regurgitation. GREAT VESSELS The aortic root is normal in size. The IVC is dilated. The IVC collapses <50% with inspiration. PERICARDIAL EFFUSION The pericardium appears normal. <Conclusion> The left ventricle is normal size. There is normal left ventricular wall thickness. Generalised moderate hypokinesia, particularly pronounced in the basal hsalf of the septum Left ventricle systolic function is moderately impaired. The Ejection Fraction is 35-40%. Transmitral Doppler flow pattern is Grade I-abnormal relaxation pattern. Mitral regurgitation is mild to moderate. The IVC is dilated. The IVC collapses <50% with inspiration.
[2017-12-15] MEDS: Fluticasone-Salmeterol 250-50mcg Diskus IH SCH ×2 (09:30→22:15)
[2017-12-15] MEDS: Lidocaine 5% Patch TD SCH (09:30)
[2017-12-15] MEDS: Enoxaparin 80 mg Syringe SC SCH ×2 (09:30→22:20)
[2017-12-15 10:43] LABS: B-TYPE NATRIURETIC PEPTIDE 8930 pg/ml (0-450)
[2017-12-15 11:01] LABS: ALB/GLOB RATIO 0.7 (1.0-2.1); ALBUMIN 3.1 g/dL (3.5-5.0); ALT/SGPT 93 U/L (21-72); AST/SGOT 47 U/L (17-59); BLOOD UREA NITROGEN 31 mg/dl (9-20); CALCIUM 8.3 mg/dL (8.4-10.2); GFR AFRICAN-AMERICAN > 60; GFR NON-AFRICAN AMERICAN > 60
--- NOTE | 2017-12-15 12:18 | CARD ---
APPROVED REPORT EKG Measurement Heart [id number] [place] 182P48 [id number] <Conclusion> Normal sinus rhythm Rightward axis Cannot rule out Anteroseptal infarct, age undetermined Inferior injury pattern (Please repeat to confirm) Abnormal ECG
--- NOTE | 2017-12-15 15:41 | CP.PCM.PN ---
Subjective - Subjective Subjective: Ordered several other tests. If the pattern is consistent with CS vasculitis, will need VATS with Lung Bx. BAL may show eosinophils, which can also be seen in other conditions like asthma, atopic conditions, et cetera. Any skin lesions should be Bx, since this may also be used to Dx CS. However, gold standard is VATS / Bx. Will see in am. Ordered x-ray for am. Dr. Esposito [phone] Objective - Vital Signs/Intake and Output Vital Signs (last 24 hours): Temp Pulse Resp BP Pulse Ox 97.3 F L 80 15 100/70 95 12/15/17 12:00 12/15/17 08:00 12/15/17 08:00 12/15/17 09:30 12/15/17 08:00 Intake and Output: 12/15/17 12/15/17 06:59 18:59 Intake Total 340 Output Total 1250 Balance -910 - Medications Medications: Current Medications Acetaminophen (Tylenol 325mg Tab) 650 mg PO Q6 PRN PRN Reason: Fever >100.4 F Last Admin: 12/12/17 08:13 Dose: 650 mg Acetaminophen (Tylenol 325mg Tab) 650 mg PO Q6 PRN PRN Reason: Pain, Mild (1-3) Aspirin (Aspirin Chewable) 81 mg PO DAILY [facility] Last Admin: 12/15/17 10:04 Dose: 81 mg Carvedilol (Coreg) 3.125 mg PO Q12 [facility] Last Admin: 12/15/17 10:04 Dose: Not Given Enoxaparin Sodium (Lovenox) 70 mg SC Q12 [facility]IEL PRN Reason: Protocol Last Admin: 12/15/17 09:30 Dose: 70 mg Furosemide (Lasix) 40 mg IVP Q12 [facility] Last Admin: 12/15/17 09:30 Dose: 40 mg Vancomycin HCl 750 mg/ Sodium (Chloride) 250 mls @ 166.667 mls/hr IVPB DAILY [facility] PRN Reason: Protocol Last Admin: 12/15/17 10:00 Dose: Not Given Meropenem 1 gm/ Sodium (Chloride) 100 mls @ 100 mls/hr IVPB Q8 [facility]IEL PRN Reason: Protocol Last Admin: 12/15/17 10:08 Dose: 100 mls/hr Ipratropium [place] (Atrovent) 0.5 mg IH RQ6 [facility] Last Admin: 12/15/17 13:06 Dose: 0.5 mg Levalbuterol HCl (Xopenex) 0.63 mg INH RQ6 [facility] Last Admin: 12/15/17 13:06 Dose: 0.63 mg Lidocaine (Lidoderm) 1 ea TD DAILY [facility] Last Admin: 12/15/17 09:30 Dose: 1 ea Methylprednisolone (Solu-Medrol) 80 mg IV Q12 [facility] Last Admin: 12/15/17 09:30 Dose: 80 mg Montelukast Sodium (Singulair) 10 mg PO HS [facility] Last Admin: 12/14/17 22:03 Dose: 10 mg Morphine Sulfate (Morphine) 2 mg IVP Q4 PRN PRN Reason: Pain, moderate (4-7) Last Admin: 12/14/17 16:38 Dose: 2 mg Morphine Sulfate (Morphine) 4 mg IVP Q4 PRN PRN Reason: Pain, severe (8-10) Last Admin: 12/15/17 01:57 Dose: 4 mg Nitroglycerin (Nitrostat Sl Tab) 0.4 mg SL Q5M PRN PRN Reason: Pain, Mild (1-3) Last Admin: 12/12/17 06:43 Dose: 0.4 mg Ondansetron HCl (Zofran Odt) 4 mg PO Q6H PRN PRN Reason: Nausea/Vomiting Prochlorperazine (Compazine) 10 mg IM Q6 PRN PRN Reason: Nausea/Vomiting Last Admin: 12/13/17 10:42 Dose: 10 mg Fluticasone/Salmeterol (Advair Diskus 250/50) 1 puff IH Q12 [facility] Last Admin: 12/15/17 09:30 Dose: 1 puff - Labs Labs: 12/14/17 14:50 12/15/17 10:12
[2017-12-15 16:55] LABS: ACETYLCHOLINE REC BIND AB <0.30 nmol/L (<=0.30)
[2017-12-16 00:15] LABS: ACETYLCHOLINE REC MOD AB 6
[2017-12-16] MEDS: Meropenem 1 GM in Sodium Chloride 0.9% 100 ML IVPB SCH ×3 (00:19→16:22)
[2017-12-16] MEDS: Ipratropium 0.02% Inhal Soln (0.5 mg/2.5 ml) UD IH SCH ×5 (01:00→21:07)
[2017-12-16] MEDS: Levalbuterol 0.63 MG/3 ML Inhal Soln UD INH SCH ×5 (01:00→21:08)
--- NOTE | 2017-12-16 08:04 | CP.PCM.PN ---
Subjective - Date & Time of Evaluation Date of Evaluation: 12/16/17 Time of Evaluation: 07:08 - Subjective Subjective: Patient seen and examined at bedside this morning, patient reports feeling good. Denies chest or abdominal pain. Ambulating. Afebrile, no chills, nausea or vomiting, sob, palpitations. Tolerating well PO. Normal BM, no urinary symptoms. Transferred to Med/surg last night. Waiting for medical records from [facility]. Objective - Vital Signs/Intake and Output Vital Signs (last 24 hours): Temp Pulse Resp BP Pulse Ox 97.4 F L 102 H 20 95/57 L 94 L 12/16/17 07:50 12/16/17 07:50 12/16/17 07:50 12/16/17 07:50 12/16/17 07:50 - Medications Medications: Current Medications Acetaminophen (Tylenol 325mg Tab) 650 mg PO Q6 PRN PRN Reason: Fever >100.4 F Last Admin: 12/12/17 08:13 Dose: 650 mg Acetaminophen (Tylenol 325mg Tab) 650 mg PO Q6 PRN PRN Reason: Pain, Mild (1-3) Aspirin (Aspirin Chewable) 81 mg PO DAILY [facility] Last Admin: 12/15/17 10:04 Dose: 81 mg Carvedilol (Coreg) 3.125 mg PO Q12 [facility] Last Admin: 12/15/17 22:15 Dose: 3.125 mg Enoxaparin Sodium (Lovenox) 70 mg SC Q12 [facility] PRN Reason: Protocol Last Admin: 12/15/17 22:20 Dose: 70 mg Furosemide (Lasix) 40 mg IVP Q12 [facility] Last Admin: 12/15/17 22:18 Dose: 40 mg Vancomycin HCl 750 mg/ Sodium (Chloride) 250 mls @ 166.667 mls/hr IVPB DAILY [facility] PRN Reason: Protocol Last Admin: 12/15/17 10:00 Dose: Not Given Meropenem 1 gm/ Sodium (Chloride) 100 mls @ 100 mls/hr IVPB Q8 [facility] PRN Reason: Protocol Last Admin: 12/16/17 00:19 Dose: 100 mls/hr Ipratropium [place] (Atrovent) 0.5 mg IH RQ6 [facility] Last Admin: 12/16/17 07:55 Dose: Not Given Levalbuterol HCl (Xopenex) 0.63 mg INH RQ6 [facility] Last Admin: 12/16/17 07:55 Dose: Not Given Lidocaine (Lidoderm) 1 ea TD DAILY [facility] Last Admin: 12/15/17 09:30 Dose: 1 ea Methylprednisolone (Solu-Medrol) 80 mg IV Q12 [facility] Last Admin: 12/15/17 22:17 Dose: 80 mg Montelukast Sodium (Singulair) 10 mg PO HS [facility] Last Admin: 12/15/17 22:15 Dose: 10 mg Morphine Sulfate (Morphine) 2 mg IVP Q4 PRN PRN Reason: Pain, moderate (4-7) Last Admin: 12/16/17 05:42 Dose: 2 mg Morphine Sulfate (Morphine) 4 mg IVP Q4 PRN PRN Reason: Pain, severe (8-10) Nitroglycerin (Nitrostat Sl Tab) 0.4 mg SL Q5M PRN PRN Reason: Pain, Mild (1-3) Last Admin: 12/12/17 06:43 Dose: 0.4 mg Ondansetron HCl (Zofran Odt) 4 mg PO Q6H PRN PRN Reason: Nausea/Vomiting Prochlorperazine (Compazine) 10 mg IM Q6 PRN PRN Reason: Nausea/Vomiting Last Admin: 12/13/17 10:42 Dose: 10 mg Fluticasone/Salmeterol (Advair Diskus 250/50) 1 puff IH Q12 [facility] Last Admin: 12/15/17 22:15 Dose: 1 puff - Labs Labs: 12/14/17 14:50 12/15/17 10:12 - Constitutional Appears: Well, No Acute Distress - Head Exam Head Exam: NORMAL INSPECTION - Eye Exam Eye Exam: EOMI, PERRL - Respiratory Exam Respiratory Exam: Clear to Ausculation Bilateral, NORMAL BREATHING PATTERN. absent: Accessory Muscle Use, Chest Wall Tenderness, Wheezes - Cardiovascular Exam Cardiovascular Exam: REGULAR RHYTHM, +S1, +S2. absent: Murmur - GI/Abdominal Exam GI & Abdominal Exam: Soft, Normal Bowel Sounds. absent: Distended, Tenderness - Extremities Exam Extremities Exam: absent: Calf Tenderness, Pedal Edema - Neurological Exam Neurological Exam: Awake, CN II-XII Intact, Oriented x3 - Psychiatric Exam Psychiatric exam: Normal Affect - Skin Skin Exam: Dry, Warm Assessment and Plan - Assessment and Plan (Free Text) Assessment: 42yo M with PMHx Asthma, GERD, and PNA admitted for Multifocal pneumonia. Plan: PULM and ID on board, c/w IV abx. Will reconsult GI if needed, advance diet as tolerated. Cardio following for NSTEMI, c/w ASA. Medical records requested from [facility]. 1- NSTEMI, stable - troponin x3 elevated - pro BNP elevated - EKG 12/13/17: no ST elevation - Cardio consult Dr Patel on board recs appreciated - ASA 81 - c/w metoprolol tartrate 25 mg PO BID - lovenox 70 mg sc BID - Lasix 40 mg IV BID - coreg 3.125 mg PO BID - Echo: EF 35-40%, mild t moderate MR, IVC is dilated, generalized moderate hypokinesia. 2- Multifocal Pneumonia - Pulmonology consult Dr Esposito, recs appreciated. - ID consult Dr Swain, recs appreciated - c/w vanco (day 7) - c/w meropenem (day 4) - Mycoplasma IgM neg - HIV negative - Sputum culture: yeast species - considering PICC line insertion - CXR 12/16/17: significant improvement in bilateral infiltrates more in the left , persistent small b/l pleural effusions. 3- Pancreatitis, resolved - GI Dr Heart sign off, reconsult if needed. 4- Eosinophilia - DDx Churg Cristopher vs BOOP - Start Solumedrol taper 40 mg IV Q12. (12/16) - as per Pulm: considering a VATS with Bx. 5- Asthma - Atrovent and Xopenex Q6H 6- Transaminitis, improving - trending down - will monitor 7- DVT prophylaxis - lovenox 70 mg sc BID
[2017-12-16] MEDS: Fluticasone-Salmeterol 250-50mcg Diskus IH SCH ×2 (08:54→20:38)
[2017-12-16] MEDS: Lidocaine 5% Patch TD SCH (08:57)
--- NOTE | 2017-12-16 12:37 | RAD ---
HISTORY: pneumonia COMPARISON: Portable chest 12/13/2017. TECHNIQUE: Chest PA and lateral FINDINGS: LUNGS: There is significant improvement in left perihilar and upper lobe infiltrate with borderline improvement in right upper lobe infiltrate. Small bilateral pleural effusion persists. No pneumothorax bilaterally. PLEURA: As above. CARDIOVASCULAR: Normal. OSSEOUS STRUCTURES: No significant abnormalities. VISUALIZED UPPER ABDOMEN: Normal. OTHER FINDINGS: None. IMPRESSION: Improvement in bilateral infiltrates moreso at the left than on the right with stable small bilateral pleural effusions reiterated.
[2017-12-16 13:16] LABS: ANCA SCREEN NEGATIVE (NEGATIVE)
[2017-12-16] MEDS ORDERED: Lidocaine Hydrochloride 1% 10 ML ONE (13:48)
--- NOTE | 2017-12-16 17:34 | CP.PCM.CON ---
History of Present Illness - History of Present Illness History of Present Illness: Cardiothoracic Surgery Note for Dr. Yo Reason for consult: hilar lymphadenopathy, lung biopsy 42 M with PMH of vitligo, Asthma who was admitted for pancreatitis and pneumonia. Primary team is consulting surgery for possbile VATS/lung biopsy. Patient is poor historian. was at bedside and provided most of the history. Patient states that he came in because he was having abdominal pain for last few months. He recently had a work up at [facility] while being admitted there in October. Patient states that abdominal pain was attributed to Gastritis. At that time, it was determined that he has cardiomyopathy and low EF. Patient also had a cardiac cath done. Patient has had long standing history of asthma and found to have pneumonia on this admission. Over last 2-3 months, patient has had increasing SOB. Last July, patient started going to [facility] for special lung treatments. His most recent treatment was over 2 month ago. Patient currenlty complaining of fatigue and mild difficulty breathing but states it is better than it has been. Patient reports that he could walk 1-2 miles easily without getting SOB. He states he sleeps with one pillow at night. Denies fever/chills, chest pain, palpitations, nausea/vomting, diarrhea, hematemesis, hemoptysis, productive cough. PMH: asthma, vitiligo, cardiomyopathy, low ef Meds: As per EMR Allergy: NKDA PSH: I&D of leg abscess, cardiac cath FH: asthma Social: denies tobacco/illicit drug use, occasional EtOH Review of Systems - Review of Systems All systems: reviewed and no additional remarkable complaints except (as per HPI ) Past Patient History - Past Medical History & Family History Past Medical History?: Yes - Past Social History Smoking Status: Never Smoked Chewing Tobacco Use: No Cigar Use: No Alcohol: Occasional Drugs: Denies Home Situation {Lives}: With Family - CARDIAC Hx Cardiac Disorders: No - PULMONARY Hx Respiratory Disorders: Yes Hx Asthma: Yes Hx Pneumonia: Yes - NEUROLOGICAL Hx Neurological Disorder: No - HEENT Hx HEENT Problems: No - RENAL Hx Chronic Kidney Disease: No - ENDOCRINE/METABOLIC Hx Endocrine Disorders: No - HEMATOLOGICAL/ONCOLOGICAL Hx Blood Disorders: No - INTEGUMENTARY Hx Dermatological Problems: No - MUSCULOSKELETAL/RHEUMATOLOGICAL Hx Musculoskeletal Disorders: No Hx Falls: No - GASTROINTESTINAL Hx Gastritis: Yes - GENITOURINARY/GYNECOLOGICAL Hx Genitourinary Disorders: No - PSYCHIATRIC Hx Psychophysiologic Disorder: No Hx Substance Use: No - SURGICAL HISTORY Hx Surgeries: Yes Other/Comment: leg surgery x2, right leg abscess removal - ANESTHESIA Hx Anesthesia: Yes Hx Anesthesia Reactions: No Meds Allergies/Adverse Reactions: Allergies Allergy/AdvReac Type Severity Reaction Status Date / Time No Known Allergies Allergy Verified 04/24/16 17:23 - Medications Medications: Current Medications Acetaminophen (Tylenol 325mg Tab) 650 mg PO Q6 PRN PRN Reason: Fever >100.4 F Last Admin: 12/12/17 08:13 Dose: 650 mg Acetaminophen (Tylenol 325mg Tab) 650 mg PO Q6 PRN PRN Reason: Pain, Mild (1-3) Aspirin (Aspirin Chewable) 81 mg PO DAILY [facility] Last Admin: 12/15/17 10:04 Dose: 81 mg Carvedilol (Coreg) 3.125 mg PO Q12 [facility] Last Admin: 12/16/17 08:54 Dose: 3.125 mg Enoxaparin Sodium (Lovenox) 70 mg SC Q12 [facility] PRN Reason: Protocol Last Admin: 12/15/17 22:20 Dose: 70 mg Furosemide (Lasix) 40 mg IVP Q12 [facility] Last Admin: 12/16/17 09:10 Dose: 40 mg Vancomycin HCl 750 mg/ Sodium (Chloride) 250 mls @ 166.667 mls/hr IVPB DAILY [facility] PRN Reason: Protocol Last Admin: 12/16/17 11:23 Dose: 166.667 mls/hr Meropenem 1 gm/ Sodium (Chloride) 100 mls @ 100 mls/hr IVPB Q8 [facility] PRN Reason: Protocol Last Admin: 12/16/17 16:22 Dose: 100 mls/hr Ibuprofen (Motrin Tab) 600 mg PO Q6 PRN PRN Reason: Pain, moderate (4-7) Ipratropium [place] (Atrovent) 0.5 mg IH RQ6 [facility] Last Admin: 12/16/17 07:55 Dose: Not Given Ketorolac Tromethamine (Toradol) 15 mg IVP Q6 PRN PRN Reason: Pain, severe (8-10) Levalbuterol HCl (Xopenex) 0.63 mg INH RQ6 [facility] Last Admin: 12/16/17 07:55 Dose: Not Given Lidocaine (Lidoderm) 1 ea TD DAILY [facility] Last Admin: 12/16/17 08:57 Dose: 1 ea Methylprednisolone (Solu-Medrol) 40 mg IV Q12 [facility] Montelukast Sodium (Singulair) 10 mg PO HS [facility] Last Admin: 12/15/17 22:15 Dose: 10 mg Nitroglycerin (Nitrostat Sl Tab) 0.4 mg SL Q5M PRN PRN Reason: Pain, Mild (1-3) Last Admin: 12/12/17 06:43 Dose: 0.4 mg Ondansetron HCl (Zofran Odt) 4 mg PO Q6H PRN PRN Reason: Nausea/Vomiting Prochlorperazine (Compazine) 10 mg IM Q6 PRN PRN Reason: Nausea/Vomiting Last Admin: 12/13/17 10:42 Dose: 10 mg Fluticasone/Salmeterol (Advair Diskus 250/50) 1 puff IH Q12 [facility] Last Admin: 12/16/17 08:54 Dose: 1 puff Physical Exam - Constitutional Appears: No Acute Distress - Head Exam Head Exam: ATRAUMATIC, NORMOCEPHALIC - ENT Exam ENT Exam: Mucous Membranes Moist - Respiratory Exam Respiratory Exam: NORMAL BREATHING PATTERN. absent: Accessory Muscle Use, Respiratory Distress - Cardiovascular Exam Cardiovascular Exam: REGULAR RHYTHM - GI/Abdominal Exam GI & Abdominal Exam: Soft. absent: Distended, Firm, Guarding, Rebound, Tenderness - Extremities Exam Extremities exam: Positive for: normal capillary refill, pedal pulses present. Negative for: calf tenderness - Back Exam Back exam: absent: CVA tenderness (L), CVA tenderness (R) - Neurological Exam Neurological exam: Alert, CN II-XII Intact, Oriented x3 - Psychiatric Exam Psychiatric exam: Normal Affect, Normal Mood - Skin Skin Exam: Dry, Intact, Warm Results - Vital Signs Recent Vital Signs: Last Vital Signs Temp 97.1 F L 12/16/17 16:20 Pulse 84 12/16/17 16:20 Resp 20 12/16/17 16:20 BP 100/69 12/16/17 16:20 Pulse Ox 96 12/16/17 16:20 - Labs Result Diagrams: 12/14/17 14:50 12/15/17 10:12 Labs: Laboratory Results - last 24 hr 12/11/17 12/13/17 12/15/17 05:10 11:29 21:09 POC Glucose (mg/dL) 93 ANCA Screen Negative c-ANCA Titer TNP Proteinase 3 (PR3) <1.0 p-ANCA Titer TNP Atypical p-ANCA Titer TNP Myeloperoxidase Ab <1.0 Acetylchol Rcpt Modu Ab 6 Assessment & Plan - Assessment and Plan (Free Text) Assessment: 42 M with hilar lymphadenopathy, eosinophilia and resolving pneumonia -f/u ABG -PFTs -Possible VATS with lung biopsy -Will discuss with Dr. Sanaz Carter PGY1
[2017-12-16] MEDS: MethylPREDNISolone 40 mg Vial IV SCH (20:44)
[2017-12-17] MEDS: Meropenem 1 GM in Sodium Chloride 0.9% 100 ML IVPB SCH ×3 (00:24→16:28)
[2017-12-17] MEDS: Levalbuterol 0.63 MG/3 ML Inhal Soln UD INH SCH ×4 (01:16→19:13)
[2017-12-17] MEDS: Ipratropium 0.02% Inhal Soln (0.5 mg/2.5 ml) UD IH SCH ×4 (01:16→19:13)
[2017-12-17 06:53] LABS: BASO % 0.2 % (0.0-2.0); EOS % 0.2 % (0.0-4.0); HEMOGLOBIN 9.2 g/dL (12.0-18.0); LYMPH # 1.1 K/uL (1.0-4.3); LYMPH % 13.4 % (20.0-40.0); MEAN CORPUSCULAR HEMOGLOBIN 29.8 pg (27.0-31.0); MEAN CORPUSCULAR HGB CONC 33.1 g/dL (33.0-37.0); MEAN PLATELET VOLUME 9.5 fl (7.2-11.7); MONO # 0.7 K/uL (0.0-0.8); MONO % 8.2 % (0.0-10.0); NEUT # 6.2 K/uL (1.8-7.0); RBC 3.08 Mil/uL (4.40-5.90); RED CELL DISTRIBUTION WIDTH 16.6 % (11.5-14.5); WHITE BLOOD COUNT 7.9 K/uL (4.8-10.8)
[2017-12-17 07:05] LABS: ALB/GLOB RATIO 0.7 (1.0-2.1); ALBUMIN 2.7 g/dL (3.5-5.0); ALT/SGPT 145 U/L (21-72); AST/SGOT 119 U/L (17-59); BLOOD UREA NITROGEN 40 mg/dl (9-20); CALCIUM 7.8 mg/dL (8.4-10.2); GFR AFRICAN-AMERICAN > 60; GFR NON-AFRICAN AMERICAN > 60
[2017-12-17] MEDS: Fluticasone-Salmeterol 250-50mcg Diskus IH SCH ×2 (08:46→21:05)
[2017-12-17] MEDS: Lidocaine 5% Patch TD SCH (08:47)
[2017-12-17] MEDS: Enoxaparin 80 mg Syringe SC SCH ×2 (08:47→21:15)
[2017-12-17] MEDS: MethylPREDNISolone 40 mg Vial IV SCH ×2 (08:50→21:12)
--- NOTE | 2017-12-17 10:38 | CP.PCM.PN ---
Subjective - Date & Time of Evaluation Date of Evaluation: 12/17/17 Time of Evaluation: 13:00 - Subjective Subjective: ID Note- Pt. seen and examined today in med-surg floor. pt. state he feels much better and denies any fever or chills. states his breathing much better compared to before. states wishes to go home soon. pt's records from [facility] finally arrived today as pre records had b/l pneumonia and was on IV zosyn and vanco and also had GI complaints there and elevated LFTs there based on records and was seen by GI/Pulm and had negative c.diff there and was d/c on levaquin as per med records. Objective - Vital Signs/Intake and Output Vital Signs (last 24 hours): Temp Pulse Resp BP Pulse Ox 97.2 F L 71 20 102/64 97 12/17/17 08:09 12/17/17 08:48 12/17/17 08:09 12/17/17 08:48 12/17/17 08:09 - Medications Medications: Current Medications Acetaminophen (Tylenol 325mg Tab) 650 mg PO Q6 PRN PRN Reason: Fever >100.4 F Last Admin: 12/12/17 08:13 Dose: 650 mg Acetaminophen (Tylenol 325mg Tab) 650 mg PO Q6 PRN PRN Reason: Pain, Mild (1-3) Aspirin (Aspirin Chewable) 81 mg PO DAILY [facility] Last Admin: 12/17/17 08:48 Dose: 81 mg Carvedilol (Coreg) 3.125 mg PO Q12 [facility] Last Admin: 12/17/17 08:48 Dose: 3.125 mg Enoxaparin Sodium (Lovenox) 70 mg SC Q12 [facility] PRN Reason: Protocol Last Admin: 12/17/17 08:47 Dose: 70 mg Furosemide (Lasix) 40 mg IVP Q12 [facility] Last Admin: 12/17/17 08:46 Dose: 40 mg Vancomycin HCl 750 mg/ Sodium (Chloride) 250 mls @ 166.667 mls/hr IVPB DAILY [facility] PRN Reason: Protocol Last Admin: 12/17/17 08:50 Dose: 166.667 mls/hr Meropenem 1 gm/ Sodium (Chloride) 100 mls @ 100 mls/hr IVPB Q8 [facility] PRN Reason: Protocol Last Admin: 12/17/17 08:49 Dose: 100 mls/hr Ibuprofen (Motrin Tab) 600 mg PO Q6 PRN PRN Reason: Pain, moderate (4-7) Ipratropium [place] (Atrovent) 0.5 mg IH RQ6 [facility] Last Admin: 12/17/17 08:35 Dose: Not Given Ketorolac Tromethamine (Toradol) 15 mg IVP Q6 PRN PRN Reason: Pain, severe (8-10) Levalbuterol HCl (Xopenex) 0.63 mg INH RQ6 [facility] Last Admin: 12/17/17 08:35 Dose: 0.63 mg Lidocaine (Lidoderm) 1 ea TD DAILY [facility] Last Admin: 12/17/17 08:47 Dose: 1 ea Methylprednisolone (Solu-Medrol) 40 mg IV Q12 [facility] Last Admin: 12/17/17 08:50 Dose: 40 mg Montelukast Sodium (Singulair) 10 mg PO HS [facility] Last Admin: 12/16/17 22:17 Dose: 10 mg Nitroglycerin (Nitrostat Sl Tab) 0.4 mg SL Q5M PRN PRN Reason: Pain, Mild (1-3) Last Admin: 12/12/17 06:43 Dose: 0.4 mg Ondansetron HCl (Zofran Odt) 4 mg PO Q6H PRN PRN Reason: Nausea/Vomiting Prochlorperazine (Compazine) 10 mg IM Q6 PRN PRN Reason: Nausea/Vomiting Last Admin: 12/13/17 10:42 Dose: 10 mg Fluticasone/Salmeterol (Advair Diskus 250/50) 1 puff IH Q12 [facility] Last Admin: 12/17/17 08:46 Dose: 1 puff - Labs Labs: - Additional Findings Additional findings: Constitutional Appears: No Acute Distress - Head Exam Head Exam: ATRAUMATIC - Eye Exam Eye Exam: EOMI - ENT Exam ENT Exam: Normal Oropharynx - Neck Exam Neck exam: Positive for: Full Rom - Respiratory Exam Respiratory Exam: NORMAL BREATHING PATTERN Additional comments: better aeration B/L no wheezing - Cardiovascular Exam Cardiovascular Exam: RRR, +S1, +S2 - GI/Abdominal Exam GI & Abdominal Exam: Normal Bowel Sounds, Soft Additional comments: No distention No tenderness no guarding no rebound - Extremities Exam Extremities exam: Positive for: normal inspection - Neurological Exam Neurological exam: Alert, Oriented x 3 Laboratory Results - last 72 hr 12/11/17 12/11/17 12/11/17 05:10 17:15 17:15 WBC RBC Hgb Hct MCV MCH MCHC RDW Plt Count MPV Neut % (Auto) Lymph % (Auto) [place] % (Auto) Eos % (Auto) Baso % (Auto) Neut # (Auto) Lymph # (Auto) [place] # (Auto) Eos # (Auto) Baso # (Auto) Sodium Potassium Chloride Carbon Dioxide Anion Gap BUN Creatinine Est GFR ( Amer) Est GFR (Non-Af Amer) POC Glucose (mg/dL) Random Glucose Calcium Magnesium Total Bilirubin AST ALT Alkaline Phosphatase Troponin I NT-Pro-B Natriuret Pep Total Protein Total Protein (PEP) Albumin Globulin Albumin/Globulin Ratio Ktcpq-5-Ivomchxolos Angiotensin Convert Enz Ur Random Creatinine U Random Total Protein IgG, Serum (MS) >300.0 H SHARONDA Screen Negative SHARONDA Titer TEST NOT PERFORMED SHARONDA Titer 2 TEST NOT PERFORMED SHARONDA Nuclear Membr Pat Negative SHARONDA Pattern TEST NOT PERFORMED SHARONDA Pattern 2 TEST NOT PERFORMED ANCA Screen c-ANCA Titer Proteinase 3 (PR3) p-ANCA Titer Atypical p-ANCA Titer Myeloperoxidase Ab Acetylchol Rcpt Bind Ab <0.30 Acetylchol Rcpt Modu Ab 6 HIV 1&2 Ag/Ab, 4th Gen Anti-Staphylolysin O 12/13/17 12/14/17 12/14/17 11:29 14:50 14:50 WBC RBC Hgb Hct MCV MCH MCHC RDW Plt Count MPV Neut % (Auto) Lymph % (Auto) [place] % (Auto) Eos % (Auto) Baso % (Auto) Neut # (Auto) Lymph # (Auto) [place] # (Auto) Eos # (Auto) Baso # (Auto) Sodium Potassium Chloride Carbon Dioxide Anion Gap BUN Creatinine Est GFR ( Amer) Est GFR (Non-Af Amer) POC Glucose (mg/dL) Random Glucose Calcium Magnesium Total Bilirubin AST ALT Alkaline Phosphatase Troponin I NT-Pro-B Natriuret Pep Total Protein Total Protein (PEP) Albumin Globulin Albumin/Globulin Ratio Tdcnu-6-Ypfjluxmbmz 333 H Angiotensin Convert Enz Ur Random Creatinine U Random Total Protein IgG, Serum (MS) SHARONDA Screen SHARONDA Titer SHARONDA Titer 2 SHARONDA Nuclear Membr Pat SHARONDA Pattern SHARONDA Pattern 2 ANCA Screen Negative c-ANCA Titer TNP Proteinase 3 (PR3) <1.0 p-ANCA Titer TNP Atypical p-ANCA Titer TNP Myeloperoxidase Ab <1.0 Acetylchol Rcpt Bind Ab Acetylchol Rcpt Modu Ab HIV 1&2 Ag/Ab, 4th Gen Nonreactive Anti-Staphylolysin O 12/14/17 12/14/17 12/15/17 14:50 14:50 09:57 WBC RBC Hgb Hct MCV MCH MCHC RDW Plt Count MPV Neut % (Auto) Lymph % (Auto) [place] % (Auto) Eos % (Auto) Baso % (Auto) Neut # (Auto) Lymph # (Auto) [place] # (Auto) Eos # (Auto) Baso # (Auto) Sodium Potassium Chloride Carbon Dioxide Anion Gap BUN Creatinine Est GFR ( Amer) Est GFR (Non-Af Amer) POC Glucose (mg/dL) Random Glucose Calcium Magnesium Total Bilirubin AST ALT Alkaline Phosphatase Troponin I 0.8330 H* NT-Pro-B Natriuret Pep Total Protein Total Protein (PEP) Albumin Globulin Albumin/Globulin Ratio Zzees-2-Tfjowmfenfe Angiotensin Convert Enz 41 Ur Random Creatinine U Random Total Protein IgG, Serum (MS) SHARONDA Screen SHARONDA Titer SHARONDA Titer 2 SHARONDA Nuclear Membr Pat SHARONDA Pattern SHARONDA Pattern 2 ANCA Screen c-ANCA Titer Proteinase 3 (PR3) p-ANCA Titer Atypical p-ANCA Titer Myeloperoxidase Ab Acetylchol Rcpt Bind Ab Acetylchol Rcpt Modu Ab HIV 1&2 Ag/Ab, 4th Gen Anti-Staphylolysin O Negative 12/15/17 12/15/17 12/16/17 10:12 21:09 05:40 WBC RBC Hgb Hct MCV MCH MCHC RDW Plt Count MPV Neut % (Auto) Lymph % (Auto) [place] % (Auto) Eos % (Auto) Baso % (Auto) Neut # (Auto) Lymph # (Auto) [place] # (Auto) Eos # (Auto) Baso # (Auto) Sodium 139 Potassium 4.7 Chloride 97 L Carbon Dioxide 27 Anion Gap 20 BUN 31 H Creatinine 1.2 Est GFR ( Amer) > 60 Est GFR (Non-Af Amer) > 60 POC Glucose (mg/dL) 93 Random Glucose 199 H Calcium 8.3 L Magnesium 2.4 H Total Bilirubin 0.5 AST 47 ALT 93 H Alkaline Phosphatase 788 H Troponin I NT-Pro-B Natriuret Pep 8930 H Total Protein 7.5 Total Protein (PEP) 6.4 Albumin 3.1 L Globulin 4.4 H Albumin/Globulin Ratio 0.7 L Fkjal-9-Zgybqeqevbd Angiotensin Convert Enz Ur Random Creatinine U Random Total Protein IgG, Serum (MS) SHARONDA Screen SHARONDA Titer SHARONDA Titer 2 SHARONDA Nuclear Membr Pat SHARONDA Pattern SHARONDA Pattern 2 ANCA Screen c-ANCA Titer Proteinase 3 (PR3) p-ANCA Titer Atypical p-ANCA Titer Myeloperoxidase Ab Acetylchol Rcpt Bind Ab Acetylchol Rcpt Modu Ab HIV 1&2 Ag/Ab, 4th Gen Anti-Staphylolysin O 12/16/17 12/17/17 12/17/17 10:23 06:20 06:20 WBC 7.9 RBC 3.08 L Hgb 9.2 L D Hct 27.7 L MCV 90.0 MCH 29.8 MCHC 33.1 RDW 16.6 H Plt Count 217 MPV 9.5 Neut % (Auto) 78.0 H Lymph % (Auto) 13.4 L [place] % (Auto) 8.2 Eos % (Auto) 0.2 Baso % (Auto) 0.2 Neut # (Auto) 6.2 Lymph # (Auto) 1.1 [place] # (Auto) 0.7 Eos # (Auto) 0.0 Baso # (Auto) 0.0 Sodium 142 Potassium 3.7 Chloride 94 L Carbon Dioxide 34 H Anion Gap 18 BUN 40 H Creatinine 1.0 Est GFR ( Amer) > 60 Est GFR (Non-Af Amer) > 60 POC Glucose (mg/dL) Random Glucose 137 H Calcium 7.8 L Magnesium Total Bilirubin 0.3 AST 119 H D ALT 145 H D Alkaline Phosphatase 631 H Troponin I NT-Pro-B Natriuret Pep Total Protein 6.5 Total Protein (PEP) Albumin 2.7 L Globulin 3.8 Albumin/Globulin Ratio 0.7 L Igdny-5-Yzrlpqaurpd Angiotensin Convert Enz Ur Random Creatinine 49 U Random Total Protein 521 H IgG, Serum (MS) SHARONDA Screen SHARONDA Titer SHARONDA Titer 2 SHARONDA Nuclear Membr Pat SHARONDA Pattern SHARONDA Pattern 2 ANCA Screen c-ANCA Titer Proteinase 3 (PR3) p-ANCA Titer Atypical p-ANCA Titer Myeloperoxidase Ab Acetylchol Rcpt Bind Ab Acetylchol Rcpt Modu Ab HIV 1&2 Ag/Ab, 4th Gen Anti-Staphylolysin O Microbiology 12/12/17 11:05 Blood Blood Culture - Final NO GROWTH AFTER 5 DAYS 12/12/17 11:05 Blood Gram Stain - Final TEST NOT PERFORMED 12/12/17 10:50 Blood Blood Culture - Final NO GROWTH AFTER 5 DAYS 12/12/17 10:50 Blood Gram Stain - Final TEST NOT PERFORMED 12/15/17 16:28 Naris MRSA Culture (Admit) - Final MRSA NOT DETECTED 12/14/17 08:51 Sputum Gram Stain - Final 12/14/17 08:51 Sputum Sputum Culture - Final Yeast Species 12/09/17 15:26 Blood-Venous Blood Culture - Final NO GROWTH AFTER 5 DAYS 12/09/17 15:26 Blood-Venous Gram Stain - Final TEST NOT PERFORMED 12/09/17 15:11 Blood-Venous Blood Culture - Final NO GROWTH AFTER 5 DAYS 12/12/17 10:30 Urine,Clean Catch Urine Culture - Final No Growth (<1,000 CFU/ML) 12/09/17 10:18 Urine,Clean Catch Urine Culture - Final No Growth (<1,000 CFU/ML) Accession No. : [id number] Patient Name / ID : ANTHONY FERNANDEZ / [id number] Exam Date : 12/16/2017 09:22:04 ( Approved ) Study Comment : Sex / Age : M / 42Y Creator : Wilfred Arteaga MD Dictator : Wilfred Arteaga MD Log Driver : Wet Process Operator : Wilfred Arteaga MD Approver2 : Report Date : 12/16/2017 12:31:04 My Comment : HISTORY: pneumonia COMPARISON: Portable chest 12/13/2017. TECHNIQUE: Chest PA and lateral FINDINGS: LUNGS: There is significant improvement in left perihilar and upper lobe infiltrate with borderline improvement in right upper lobe infiltrate. Small bilateral pleural effusion persists. No pneumothorax bilaterally. PLEURA: As above. CARDIOVASCULAR: Normal. OSSEOUS STRUCTURES: No significant abnormalities. VISUALIZED UPPER ABDOMEN: Normal. OTHER FINDINGS: None. IMPRESSION: Improvement in bilateral infiltrates moreso at the left than on the right with stable small bilateral pleural effusions reiterated. Assessment and Plan (1) Pneumonia Status: Acute (2) Elevated liver enzymes Status: Acute (3) Pancreatitis Status: Acute (4) Leukocytosis Status: Acute (5) Fever Status: Acute - Assessment and Plan (Free Text) Assessment: A/p- 42 year old male admitted with multifocal pneumonia and also found to have elevated liver enzymes. clinically improved afebrile past 3 days leukocytosis and eosinophilia has resolved . elevated liver enzymes are trending down . Initial chest ct report- multifocal pneumonia urine legionella AG- negative abd ct- pancreatitis without psudocyst as per report. HIDA scan- no dcutal obstruction as per report cxr report from yesterday improved b/l infiltrtaes , small b/l effusions as ape report blood cx- neg x 4 urine cx- neg urine legionella AG-neg mycoplasma serology-negative still has elevated LFTS plan- advise to continue with IV vancomycin. day #7 keep vanco trough <15. advise to continue with meropenem day #5 pt.has improved dramatically on steroids and work up for churg rhys in progress. CT surgeon saw pt. today for ? lung BX for definitive diagnosis vs VATS. pancreatitis management as per GI. All above d/w patient and his and all their questions were answered. they verbalize full understanding of all above and agree with above plan of care. all above d/w Dr.Pierre Salas also at length.
--- NOTE | 2017-12-17 11:55 | CP.PCM.PN ---
Subjective - Date & Time of Evaluation Date of Evaluation: 12/17/17 Time of Evaluation: 07:20 - Subjective Subjective: Patient seen and examined at bedside this morning, patient reports feeling good. Denies chest or abdominal pain. Ambulating. Afebrile, no chills, nausea or vomiting, sob, palpitations. Tolerating well PO. Normal BM, no urinary symptoms. Waiting for medical records from [facility]. Called yesterday and spoke with Lexi and Amie in MR dept. Request resented for 4th time today. Objective - Vital Signs/Intake and Output Vital Signs (last 24 hours): Temp Pulse Resp BP Pulse Ox 97.2 F L 71 20 102/64 97 12/17/17 08:09 12/17/17 08:48 12/17/17 08:09 12/17/17 08:48 12/17/17 08:09 Intake and Output: 12/17/17 12/17/17 06:59 18:59 Output Total 560 Balance -560 - Medications Medications: Current Medications Acetaminophen (Tylenol 325mg Tab) 650 mg PO Q6 PRN PRN Reason: Fever >100.4 F Last Admin: 12/12/17 08:13 Dose: 650 mg Acetaminophen (Tylenol 325mg Tab) 650 mg PO Q6 PRN PRN Reason: Pain, Mild (1-3) Aspirin (Aspirin Chewable) 81 mg PO DAILY [facility] Last Admin: 12/17/17 08:48 Dose: 81 mg Carvedilol (Coreg) 3.125 mg PO Q12 [facility] Last Admin: 12/17/17 08:48 Dose: 3.125 mg Enoxaparin Sodium (Lovenox) 70 mg SC Q12 [facility] PRN Reason: Protocol Last Admin: 12/17/17 08:47 Dose: 70 mg Furosemide (Lasix) 40 mg IVP Q12 [facility] Last Admin: 12/17/17 08:46 Dose: 40 mg Vancomycin HCl 750 mg/ Sodium (Chloride) 250 mls @ 166.667 mls/hr IVPB DAILY [facility] PRN Reason: Protocol Last Admin: 12/17/17 08:50 Dose: 166.667 mls/hr Meropenem 1 gm/ Sodium (Chloride) 100 mls @ 100 mls/hr IVPB Q8 [facility] PRN Reason: Protocol Last Admin: 12/17/17 08:49 Dose: 100 mls/hr Ibuprofen (Motrin Tab) 600 mg PO Q6 PRN PRN Reason: Pain, moderate (4-7) Ipratropium [place] (Atrovent) 0.5 mg IH RQ6 [facility] Last Admin: 12/17/17 08:35 Dose: Not Given Ketorolac Tromethamine (Toradol) 15 mg IVP Q6 PRN PRN Reason: Pain, severe (8-10) Levalbuterol HCl (Xopenex) 0.63 mg INH RQ6 [facility] Last Admin: 12/17/17 08:35 Dose: 0.63 mg Lidocaine (Lidoderm) 1 ea TD DAILY [facility] Last Admin: 12/17/17 08:47 Dose: 1 ea Methylprednisolone (Solu-Medrol) 40 mg IV Q12 [facility] Last Admin: 12/17/17 08:50 Dose: 40 mg Montelukast Sodium (Singulair) 10 mg PO HS [facility] Last Admin: 12/16/17 22:17 Dose: 10 mg Nitroglycerin (Nitrostat Sl Tab) 0.4 mg SL Q5M PRN PRN Reason: Pain, Mild (1-3) Last Admin: 12/12/17 06:43 Dose: 0.4 mg Ondansetron HCl (Zofran Odt) 4 mg PO Q6H PRN PRN Reason: Nausea/Vomiting Prochlorperazine (Compazine) 10 mg IM Q6 PRN PRN Reason: Nausea/Vomiting Last Admin: 12/13/17 10:42 Dose: 10 mg Fluticasone/Salmeterol (Advair Diskus 250/50) 1 puff IH Q12 [facility] Last Admin: 12/17/17 08:46 Dose: 1 puff - Labs Labs: 12/17/17 06:20 12/17/17 06:20 - Constitutional Appears: No Acute Distress - Head Exam Head Exam: NORMAL INSPECTION - Respiratory Exam Respiratory Exam: Clear to Ausculation Bilateral, NORMAL BREATHING PATTERN. absent: Wheezes - Cardiovascular Exam Cardiovascular Exam: REGULAR RHYTHM, +S1, +S2. absent: Tachycardia - GI/Abdominal Exam GI & Abdominal Exam: Soft, Normal Bowel Sounds. absent: Distended, Tenderness - Extremities Exam Extremities Exam: absent: Calf Tenderness - Neurological Exam Neurological Exam: Awake, CN II-XII Intact, Oriented x3 - Psychiatric Exam Psychiatric exam: Normal Mood - Skin Skin Exam: Dry, Warm Assessment and Plan - Assessment and Plan (Free Text) Assessment: 42yo M with PMHx Asthma, GERD, and PNA admitted for Multifocal pneumonia. Plan: PULM and ID on board, c/w IV abx. Will reconsult GI if needed, advance diet as tolerated. Cardio following for NSTEMI, c/w ASA. Medical records requested from [facility]. 1- NSTEMI, stable - troponin x3 elevated - pro BNP elevated - EKG 12/13/17: no ST elevation - Cardio consult Dr Patel on board recs appreciated - ASA 81 daily - metoprolol tartrate 25 mg PO BID - lovenox 70 mg sc BID - Lasix 40 mg IV BID - coreg 3.125 mg PO BID - Echo: EF 35-40%, mild to moderate MR, IVC is dilated, generalized moderate hypokinesia. 2- Multifocal Pneumonia - Pulmonology consult agnes Hernandez appreciated. - ID consult agnes Alston appreciated - c/w vanco (day 8) - c/w meropenem (day 5) - Sputum culture: yeast species - CXR 12/16/17: significant improvement in bilateral infiltrates more in the left , persistent small b/l pleural effusions. 3- Eosinophilia - DDx Churg Cristopher vs BOOP - Start Solumedrol taper 40 mg IV Q12. (12/16) - as per Pulm: considering a VATS with Bx. 4- Asthma - Atrovent and Xopenex Q6H 5- Transaminitis, improving - trending down - will monitor 6- DVT prophylaxis - lovenox 70 mg sc BID 7- Lines - PICC line 12/16/17
--- NOTE | 2017-12-17 14:47 | CP.PCM.PN ---
Objective - Vital Signs/Intake and Output Vital Signs (last 24 hours): Temp Pulse Resp BP Pulse Ox 97.2 F L 71 20 102/64 97 12/17/17 08:09 12/17/17 08:48 12/17/17 08:09 12/17/17 08:48 12/17/17 08:09 Intake and Output: 12/17/17 12/17/17 06:59 18:59 Output Total 560 Balance -560 - Medications Medications: Current Medications Acetaminophen (Tylenol 325mg Tab) 650 mg PO Q6 PRN PRN Reason: Fever >100.4 F Last Admin: 12/12/17 08:13 Dose: 650 mg Acetaminophen (Tylenol 325mg Tab) 650 mg PO Q6 PRN PRN Reason: Pain, Mild (1-3) Aspirin (Aspirin Chewable) 81 mg PO DAILY [facility] Last Admin: 12/17/17 08:48 Dose: 81 mg Carvedilol (Coreg) 3.125 mg PO Q12 [facility] Last Admin: 12/17/17 08:48 Dose: 3.125 mg Enoxaparin Sodium (Lovenox) 70 mg SC Q12 [facility] PRN Reason: Protocol Last Admin: 12/17/17 08:47 Dose: 70 mg Furosemide (Lasix) 40 mg IVP Q12 [facility] Last Admin: 12/17/17 08:46 Dose: 40 mg Vancomycin HCl 750 mg/ Sodium (Chloride) 250 mls @ 166.667 mls/hr IVPB DAILY [facility] PRN Reason: Protocol Last Admin: 12/17/17 08:50 Dose: 166.667 mls/hr Meropenem 1 gm/ Sodium (Chloride) 100 mls @ 100 mls/hr IVPB Q8 [facility] PRN Reason: Protocol Last Admin: 12/17/17 08:49 Dose: 100 mls/hr Ibuprofen (Motrin Tab) 600 mg PO Q6 PRN PRN Reason: Pain, moderate (4-7) Ipratropium [place] (Atrovent) 0.5 mg IH RQ6 [facility] Last Admin: 12/17/17 13:20 Dose: Not Given Ketorolac Tromethamine (Toradol) 15 mg IVP Q6 PRN PRN Reason: Pain, severe (8-10) Levalbuterol HCl (Xopenex) 0.63 mg INH RQ6 [facility] Last Admin: 12/17/17 13:20 Dose: Not Given Lidocaine (Lidoderm) 1 ea TD DAILY [facility] Last Admin: 12/17/17 08:47 Dose: 1 ea Methylprednisolone (Solu-Medrol) 40 mg IV Q12 [facility] Last Admin: 12/17/17 08:50 Dose: 40 mg Montelukast Sodium (Singulair) 10 mg PO HS [facility] Last Admin: 12/16/17 22:17 Dose: 10 mg Nitroglycerin (Nitrostat Sl Tab) 0.4 mg SL Q5M PRN PRN Reason: Pain, Mild (1-3) Last Admin: 12/12/17 06:43 Dose: 0.4 mg Ondansetron HCl (Zofran Odt) 4 mg PO Q6H PRN PRN Reason: Nausea/Vomiting Prochlorperazine (Compazine) 10 mg IM Q6 PRN PRN Reason: Nausea/Vomiting Last Admin: 12/13/17 10:42 Dose: 10 mg Fluticasone/Salmeterol (Advair Diskus 250/50) 1 puff IH Q12 [facility] Last Admin: 12/17/17 08:46 Dose: 1 puff - Labs Labs: 12/17/17 06:20 12/17/17 06:20
--- NOTE | 2017-12-17 15:18 | CP.PCM.PN ---
Subjective - Date & Time of Evaluation Date of Evaluation: 12/17/17 Time of Evaluation: 14:30 - Subjective Subjective: Reason for consultation: lung lesions, both lungs-r/o css Requested by Dr. Calderon 42 yo male, hx of asthma, presented to ER because of increasing abdominal pain, and sob. cxr and ct: bilateral consolitative lesions(Left>right)+ atelectasis( left lingula seg) and ground galsss density left lung..Treated for pneumonia, sepsis, and pancreatitis with steroids and antibiotics, and is clinically doing better. One of the current working diagnosis is css He has been seen by [facility] in the past. I would like to review all previous medical records(outside), before open lung biopsy. He will need stress thalium, PFTs and ABG and PET of chest, preop., including old medical records. Additionally, the bx is an elective procedure and would like to delay bx for a month( to optimize the pt -is just recovering from major clinical pathophysiological insults). As you know, above Preop w/u could be done as an out- patient (lesser nosocomial infections). I have discussed the plan with the pt and his . a/P: Lung infiltrates, bilat(L>R) r/o css. ct of chest tomorrow. PFTs, ABG, and Stress thalium, and PET chest(r/o malignancy). Review old records. d/w Dr Calderon. Objective - Vital Signs/Intake and Output Vital Signs (last 24 hours): Temp Pulse Resp BP Pulse Ox 97.2 F L 71 20 102/64 97 12/17/17 08:09 12/17/17 08:48 12/17/17 08:09 12/17/17 08:48 12/17/17 08:09 Intake and Output: 12/17/17 12/17/17 06:59 18:59 Output Total 560 Balance -560 - Medications Medications: Current Medications Acetaminophen (Tylenol 325mg Tab) 650 mg PO Q6 PRN PRN Reason: Fever >100.4 F Last Admin: 12/12/17 08:13 Dose: 650 mg Acetaminophen (Tylenol 325mg Tab) 650 mg PO Q6 PRN PRN Reason: Pain, Mild (1-3) Aspirin (Aspirin Chewable) 81 mg PO DAILY [facility] Last Admin: 12/17/17 08:48 Dose: 81 mg Carvedilol (Coreg) 3.125 mg PO Q12 [facility] Last Admin: 12/17/17 08:48 Dose: 3.125 mg Enoxaparin Sodium (Lovenox) 70 mg SC Q12 [facility] PRN Reason: Protocol Last Admin: 12/17/17 08:47 Dose: 70 mg Furosemide (Lasix) 40 mg IVP Q12 [facility] Last Admin: 12/17/17 08:46 Dose: 40 mg Vancomycin HCl 750 mg/ Sodium (Chloride) 250 mls @ 166.667 mls/hr IVPB DAILY [facility] PRN Reason: Protocol Last Admin: 12/17/17 08:50 Dose: 166.667 mls/hr Meropenem 1 gm/ Sodium (Chloride) 100 mls @ 100 mls/hr IVPB Q8 [facility] PRN Reason: Protocol Last Admin: 12/17/17 08:49 Dose: 100 mls/hr Ibuprofen (Motrin Tab) 600 mg PO Q6 PRN PRN Reason: Pain, moderate (4-7) Ipratropium [place] (Atrovent) 0.5 mg IH RQ6 [facility] Last Admin: 12/17/17 13:20 Dose: Not Given Ketorolac Tromethamine (Toradol) 15 mg IVP Q6 PRN PRN Reason: Pain, severe (8-10) Levalbuterol HCl (Xopenex) 0.63 mg INH RQ6 [facility] Last Admin: 12/17/17 13:20 Dose: Not Given Lidocaine (Lidoderm) 1 ea TD DAILY [facility] Last Admin: 12/17/17 08:47 Dose: 1 ea Methylprednisolone (Solu-Medrol) 40 mg IV Q12 [facility] Last Admin: 12/17/17 08:50 Dose: 40 mg Montelukast Sodium (Singulair) 10 mg PO HS [facility] Last Admin: 12/16/17 22:17 Dose: 10 mg Nitroglycerin (Nitrostat Sl Tab) 0.4 mg SL Q5M PRN PRN Reason: Pain, Mild (1-3) Last Admin: 12/12/17 06:43 Dose: 0.4 mg Ondansetron HCl (Zofran Odt) 4 mg PO Q6H PRN PRN Reason: Nausea/Vomiting Prochlorperazine (Compazine) 10 mg IM Q6 PRN PRN Reason: Nausea/Vomiting Last Admin: 12/13/17 10:42 Dose: 10 mg Fluticasone/Salmeterol (Advair Diskus 250/50) 1 puff IH Q12 [facility] Last Admin: 12/17/17 08:46 Dose: 1 puff - Labs Labs: 12/17/17 06:20 12/17/17 06:20
[2017-12-17] MEDS ORDERED: Iohexol 300 100 ML IJ ONE ×2 (16:39→17:12)
[2017-12-17] MEDS ORDERED: Sodium Chloride 0.9% 100 ML ONE (17:12)
--- NOTE | 2017-12-17 18:31 | CT ---
PROCEDURE: CT Chest with contrast HISTORY: PNA COMPARISON: None. TECHNIQUE: Contiguous axial images were obtained through the chest with intravenous contrast enhancement. Sagittal and coronal reconstructions were performed. IV contrast: 95 cc Omnipaque 300 Radiation dose (DLP): 306.22 mGy-cm. This CT exam was performed using one or more of the following dose reduction techniques: Automated exposure control, adjustment of the mA and/or kV according to patient size, and/or use of iterative reconstruction technique. FINDINGS: LUNGS: Involving multifocal infiltrates upper lobe predilection bilateral left greater than right. The most significant, extensive diseases in the lingula. The entire left upper lobe demonstrates volume loss with hyperinflation of the left lower lobe. In apical segment of the left lower lobe is a mass which may contain small cavitary components. MEDIASTINUM: Unremarkable thoracic aorta. No aneurysm or dissection. Normal sized heart. Main pulmonary artery unremarkable. No vascular congestion. No lymphadenopathy. PLEURA: No pleural fluid. No pneumothorax. BONES: No fracture. No destructive lesion. UPPER ABDOMEN: Markedly abnormal contrast enhancement of the liver in part to the arterial phase. The findings are nonspecific but can be seen with severe hepatocellular disease, inflammatory process ease -hepatitis. Patent portal veins. No abnormalities with respect to visualized IVC. OTHER FINDINGS: None. IMPRESSION: Multifocal infiltrates including small cavitary mass in the superior segment of the left lower lobe. Infectious/inflammatory etiologies are most likely. Granulomatous disease and opportunistic infection should also be considered. These are approximately stable compared to the prior study.
[2017-12-17] MEDS ORDERED: DiphenhydrAMINE 50 mg/ml Inj IVP ONE (23:57)
[2017-12-18] MEDS: Levalbuterol 0.63 MG/3 ML Inhal Soln UD INH SCH ×3 (01:03→13:41)
[2017-12-18] MEDS: Ipratropium 0.02% Inhal Soln (0.5 mg/2.5 ml) UD IH SCH ×3 (01:03→13:40)
[2017-12-18] MEDS: Meropenem 1 GM in Sodium Chloride 0.9% 100 ML IVPB SCH ×3 (01:16→16:56)
[2017-12-18 07:52] LABS: BLOOD UREA NITROGEN 44 mg/dl (9-20); GFR AFRICAN-AMERICAN > 60; GFR NON-AFRICAN AMERICAN > 60
[2017-12-18 07:59] LABS: BASO % 0.1 % (0.0-2.0); EOS # 0.1 K/uL (0.0-0.7); EOS % 0.7 % (0.0-4.0); HEMOGLOBIN 10.2 g/dL (12.0-18.0); LYMPH # 1.4 K/uL (1.0-4.3); LYMPH % 14.9 % (20.0-40.0); MEAN CELL VOLUME 90.1 fl (80.0-94.0); MEAN CORPUSCULAR HEMOGLOBIN 29.7 pg (27.0-31.0); MEAN PLATELET VOLUME 9.3 fl (7.2-11.7); MONO # 0.8 K/uL (0.0-0.8); MONO % 8.9 % (0.0-10.0); NEUT # 6.9 K/uL (1.8-7.0); NEUT % 75.4 % (50.0-75.0); RBC 3.44 Mil/uL (4.40-5.90); RED CELL DISTRIBUTION WIDTH 16.8 % (11.5-14.5); WHITE BLOOD COUNT 9.1 K/uL (4.8-10.8)
[2017-12-18 08:31] VITALS: BP 114/75; PULSE 70; RESP 20; TEMP 97.4; O2SAT 99
[2017-12-18] MEDS: Fluticasone-Salmeterol 250-50mcg Diskus IH SCH (09:12)
[2017-12-18] MEDS: Enoxaparin 80 mg Syringe SC SCH ×2 (09:13→09:27)
[2017-12-18] MEDS: Lidocaine 5% Patch TD SCH ×2 (09:14→09:27)
[2017-12-18] MEDS: MethylPREDNISolone 40 mg Vial IV SCH ×2 (09:15→09:27)
--- NOTE | 2017-12-18 12:28 | CP.PCM.PN ---
Subjective - Date & Time of Evaluation Date of Evaluation: 12/18/17 Time of Evaluation: 07:00 - Subjective Subjective: Patient seen and examined at bedside this morning, patient reports feeling fine , states wants to go home. Ambulating. Afebrile, no chills, nausea or vomiting, sob, palpitations, denies chest or abdominal pain. Tolerating well PO. Normal BM , no urinary symptoms. Pt's records from [place] finally arrived yesterday, as pre records he had b/ l pneumonia and was on IV zosyn and vanco and also had GI complaints there and elevated LFTs. Patient was received on shock with further vasopressors use. Also is noted the troponin elevation as well, patient underwent botany laboratory assistant that was normal as per pulmonology note (no report seen). Based on records was also seen by GI/Pulm and had negative c.diff there and was d/c on levaquin as per med records. Objective - Vital Signs/Intake and Output Vital Signs (last 24 hours): Temp Pulse Resp BP Pulse Ox 97.4 F L 70 20 114/75 99 12/18/17 08:31 12/18/17 09:14 12/18/17 08:31 12/18/17 09:15 12/18/17 08:31 Intake and Output: 12/18/17 12/18/17 06:59 18:59 Intake Total 100 Output Total 1900 Balance -1800 - Medications Medications: Current Medications Acetaminophen (Tylenol 325mg Tab) 650 mg PO Q6 PRN PRN Reason: Fever >100.4 F Last Admin: 12/12/17 08:13 Dose: 650 mg Acetaminophen (Tylenol 325mg Tab) 650 mg PO Q6 PRN PRN Reason: Pain, Mild (1-3) Aspirin (Aspirin Chewable) 81 mg PO DAILY [facility] Last Admin: 12/18/17 09:13 Dose: 81 mg Carvedilol (Coreg) 3.125 mg PO Q12 [facility] Last Admin: 12/18/17 09:14 Dose: 3.125 mg Enoxaparin Sodium (Lovenox) 70 mg SC Q12 [facility] PRN Reason: Protocol Last Admin: 12/18/17 09:27 Dose: Not Given Furosemide (Lasix) 40 mg IVP Q12 [facility] Last Admin: 12/18/17 09:15 Dose: 40 mg Vancomycin HCl 750 mg/ Sodium (Chloride) 250 mls @ 166.667 mls/hr IVPB DAILY [facility] PRN Reason: Protocol Last Admin: 12/18/17 09:13 Dose: 166.667 mls/hr Meropenem 1 gm/ Sodium (Chloride) 100 mls @ 100 mls/hr IVPB Q8 [facility] PRN Reason: Protocol Last Admin: 12/18/17 09:12 Dose: 100 mls/hr Ibuprofen (Motrin Tab) 600 mg PO Q6 PRN PRN Reason: Pain, moderate (4-7) Ipratropium Rosalia (Atrovent) 0.5 mg IH RQ6 [facility] Last Admin: 12/18/17 07:27 Dose: 0.5 mg Ketorolac Tromethamine (Toradol) 15 mg IVP Q6 PRN PRN Reason: Pain, severe (8-10) Last Admin: 12/17/17 23:27 Dose: 15 mg Levalbuterol HCl (Xopenex) 0.63 mg INH RQ6 [facility] Last Admin: 12/18/17 07:27 Dose: 0.63 mg Lidocaine (Lidoderm) 1 ea TD DAILY@2100 [facility] Last Admin: 12/18/17 10:05 Dose: 1 ea Methylprednisolone (Solu-Medrol) 40 mg IV Q12 [facility] Last Admin: 12/18/17 09:27 Dose: Not Given Montelukast Sodium (Singulair) 10 mg PO HS [facility] Last Admin: 12/17/17 21:17 Dose: 10 mg Nitroglycerin (Nitrostat Sl Tab) 0.4 mg SL Q5M PRN PRN Reason: Pain, Mild (1-3) Last Admin: 12/12/17 06:43 Dose: 0.4 mg Ondansetron HCl (Zofran Odt) 4 mg PO Q6H PRN PRN Reason: Nausea/Vomiting Prochlorperazine (Compazine) 10 mg IM Q6 PRN PRN Reason: Nausea/Vomiting Last Admin: 12/13/17 10:42 Dose: 10 mg Fluticasone/Salmeterol (Advair Diskus 250/50) 1 puff IH Q12 [facility] Last Admin: 12/18/17 09:12 Dose: 1 puff - Labs Labs: 12/18/17 06:55 04/13/18 06:55 - Constitutional Appears: No Acute Distress - Head Exam Head Exam: NORMAL INSPECTION - Eye Exam Eye Exam: EOMI, PERRL - ENT Exam ENT Exam: Mucous Membranes Moist - Respiratory Exam Respiratory Exam: Clear to Ausculation Bilateral, NORMAL BREATHING PATTERN. absent: Chest Wall Tenderness, Wheezes - Cardiovascular Exam Cardiovascular Exam: REGULAR RHYTHM, +S1, +S2. absent: Tachycardia - GI/Abdominal Exam GI & Abdominal Exam: Soft, Normal Bowel Sounds. absent: Distended, Tenderness - Extremities Exam Extremities Exam: absent: Calf Tenderness - Neurological Exam Neurological Exam: Alert, Awake, Oriented x3 - Skin Skin Exam: Dry, Warm Assessment and Plan - Assessment and Plan (Free Text) Assessment: 42yo M with PMHx Asthma, GERD, and PNA admitted for Multifocal pneumonia. Plan: PULM and ID on board, c/w IV abx. Will reconsult GI if needed. Cardio following for NSTEMI, c/w ASA. Medical records from [facility] obtained. 1- NSTEMI, stable - troponin x3 elevated - pro BNP elevated - EKG 12/13/17: no ST elevation - Cardio consult Dr Patel on board - ASA 81 daily - metoprolol tartrate 25 mg PO BID - lovenox 70 mg sc BID - Lasix 40 mg IV BID - coreg 3.125 mg PO BID - Echo: EF 35-40%, mild to moderate MR, IVC is dilated, generalized moderate hypokinesia. 2- Multifocal Pneumonia - Pulmonology consult Dr Esposito. - ID consult Dr Swain. - c/w vanco (day 9) - c/w meropenem (day 6) - Sputum culture: yeast species - CT chest 12/18/17: Multifocal infiltrates, small cavitary mass on LLL. 3- Eosinophilia - DDx Churg Cristopher vs BOOP - Start Solumedrol taper 40 mg IV Q12. (12/16) - as per Pulm: considering a VATS with Bx. - Thoracic surg Dr Yo on board: PFTs, ABG, and Stress thalium, and PET chest( r/o malignancy), could be as outpatient. - the bx is an elective procedure and would like to delay bx for a month ( to optimize the pt) 4- Asthma - Atrovent and Xopenex Q6H 5- Transaminitis, improving - trending down - will monitor 6- DVT prophylaxis - lovenox 70 mg sc BID 7- Lines - PICC line 12/16/17
[2017-12-18 15:22] LABS: ALBUMIN 33.6 Relative %; ALPHA-1 GLOBULIN 9.8 Relative %
--- NOTE | 2017-12-18 15:48 | CP.PCM.DIS ---
Provider - Provider Date of Admission: 12/09/17 15:15 Attending physician: Vandana Vidales MD Consults: Dr Diallo Swain ID. Dr Esposito, Pulmonology. Dr Patel, Cardiology. Dr Smith, GI. Dr Yo, Thoracic surgery. Time Spent in preparation of Discharge (in minutes): 30 Diagnosis - Discharge Diagnosis (1) Pneumonia Status: Acute Priority: High (2) Non-ST elevation DE (NSTEMI) Status: Acute Priority: High (3) Pancreatitis Status: Acute Priority: High Hospital Course - Lab Results Lab Results: Micro Results 12/16/17 09:19 Stool Ova and Parasite Concentrate Exam - Final 12/12/17 11:05 Blood Blood Culture - Final NO GROWTH AFTER 5 DAYS 12/12/17 11:05 Blood Gram Stain - Final TEST NOT PERFORMED 12/12/17 10:50 Blood Blood Culture - Final NO GROWTH AFTER 5 DAYS 12/12/17 10:50 Blood Gram Stain - Final TEST NOT PERFORMED 12/15/17 16:28 Naris MRSA Culture (Admit) - Final MRSA NOT DETECTED 12/14/17 08:51 Sputum Gram Stain - Final 12/14/17 08:51 Sputum Sputum Culture - Final Yeast Species 12/09/17 15:26 Blood-Venous Blood Culture - Final NO GROWTH AFTER 5 DAYS 12/09/17 15:26 Blood-Venous Gram Stain - Final TEST NOT PERFORMED 12/09/17 15:11 Blood-Venous Blood Culture - Final NO GROWTH AFTER 5 DAYS 12/12/17 10:30 Urine,Clean Catch Urine Culture - Final No Growth (<1,000 CFU/ML) 12/09/17 10:18 Urine,Clean Catch Urine Culture - Final No Growth (<1,000 CFU/ML) Most Recent Lab Values WBC 9.1 K/uL (4.8-10.8) 12/18/17 06:55 RBC 3.44 Mil/uL (4.40-5.90) L 12/18/17 06:55 Hgb 10.2 g/dL (12.0-18.0) L 12/18/17 06:55 Hct 31.0 % (35.0-51.0) L 12/18/17 06:55 MCV 90.1 fl (80.0-94.0) 12/18/17 06:55 MCH 29.7 pg (27.0-31.0) 12/18/17 06:55 MCHC 33.0 g/dL (33.0-37.0) 12/18/17 06:55 RDW 16.8 % (11.5-14.5) H 12/18/17 06:55 Plt Count 293 K/uL (130-400) 12/18/17 06:55 MPV 9.3 fl (7.2-11.7) 12/18/17 06:55 Neut % (Auto) 75.4 % (50.0-75.0) H 12/18/17 06:55 Lymph % (Auto) 14.9 % (20.0-40.0) L 12/18/17 06:55 Barnes % (Auto) 8.9 % (0.0-10.0) 12/18/17 06:55 Eos % (Auto) 0.7 % (0.0-4.0) 12/18/17 06:55 Baso % (Auto) 0.1 % (0.0-2.0) 12/18/17 06:55 Neut # (Auto) 6.9 K/uL (1.8-7.0) 12/18/17 06:55 Lymph # (Auto) 1.4 K/uL (1.0-4.3) 12/18/17 06:55 Barnes # (Auto) 0.8 K/uL (0.0-0.8) 12/18/17 06:55 Eos # (Auto) 0.1 K/uL (0.0-0.7) 12/18/17 06:55 Baso # (Auto) 0.0 K/uL (0.0-0.2) 12/18/17 06:55 Total Counted Cancelled 12/12/17 10:00 Neutrophils % (Manual) 41 % (42-75) L 12/11/17 05:10 Band Neutrophils % 3 % (0-2) H 12/11/17 05:10 Lymphocytes % (Manual) 11 % (20-50) L 12/11/17 05:10 Reactive Lymphs % Cancelled 12/12/17 10:00 Monocytes % (Manual) 5 % (0-10) 12/11/17 05:10 Eosinophils % (Manual) 39 % (0-7) H 12/11/17 05:10 Basophils % (Manual) 1 % (0-2) 12/11/17 05:10 Metamyelocytes % Cancelled 12/12/17 10:00 Myelocytes % Cancelled 12/12/17 10:00 Promyelocytes % Cancelled 12/12/17 10:00 Blast Cells % Cancelled 12/12/17 10:00 Plasma Cell % (Manual) Cancelled 12/12/17 10:00 Nucleated RBC % Cancelled 12/12/17 10:00 Hypersegmented Polys Cancelled 12/12/17 10:00 Smudge Cells Cancelled 12/12/17 10:00 Toxic Granulation Cancelled 12/12/17 10:00 Dohle Bodies Cancelled 12/12/17 10:00 Yelena Rods Cancelled 12/12/17 10:00 Platelet Estimate Normal (NORMAL) 12/11/17 05:10 Plt Clumps, EDTA Cancelled 12/12/17 10:00 Large Platelets Cancelled 12/12/17 10:00 Giant Platelets Cancelled 12/12/17 10:00 RBC Morphology Cancelled 12/12/17 10:00 Polychromasia Cancelled 12/12/17 10:00 Hypochromasia (manual) Cancelled 12/12/17 10:00 Poikilocytosis (manual Cancelled 12/12/17 10:00 Basophilic Stippling Cancelled 12/12/17 10:00 Anisocytosis (manual) Slight 12/11/17 05:10 Microcytosis (manual) Cancelled 12/12/17 10:00 Macrocytosis (manual) Cancelled 12/12/17 10:00 Spherocytes Cancelled 12/12/17 10:00 Sickle Cells Cancelled 12/12/17 10:00 Target Cells Cancelled 12/12/17 10:00 Tear Drop Cells Cancelled 12/12/17 10:00 Ovalocytes Cancelled 12/12/17 10:00 Stomatocytes Cancelled 12/12/17 10:00 Helmet Cells Cancelled 12/12/17 10:00 Cho-Dola Bodies Cancelled 12/12/17 10:00 Breanna Cells Cancelled 12/12/17 10:00 Acanthocytes (Spur) Cancelled 12/12/17 10:00 Rouleaux Cancelled 12/12/17 10:00 Schistocytes Cancelled 12/12/17 10:00 pO2 38 mm/Hg (30-55) 12/09/17 15:14 VBG pH 7.43 (7.32-7.43) 12/09/17 15:14 VBG pCO2 42 mmHg (40-60) 12/09/17 15:14 VBG HCO3 26.8 mmol/L 12/09/17 15:14 VBG Total CO2 29.2 mmol/L (22-28) H 12/09/17 15:14 VBG O2 Sat (Calc) 75.9 % (40-65) H 12/09/17 15:14 VBG Base Excess 3.2 mmol/L (0.0-2.0) H 12/09/17 15:14 VBG Potassium 4.1 mmol/L (3.6-5.2) 12/09/17 15:14 Sodium 136.0 mmol/L (132-148) 12/09/17 15:14 Chloride 102.0 mmol/L (98-107) 12/09/17 15:14 Glucose 77 mg/dL (75-110) 12/09/17 15:14 Lactate 1.7 mmol/L (0.7-2.1) 12/09/17 15:14 FiO2 21.0 % 12/09/17 15:14 Sodium 141 mmol/l (132-148) 12/18/17 06:55 Potassium 3.8 MMOL/L (3.6-5.0) 12/18/17 06:55 Chloride 92 mmol/L (98-107) L 12/18/17 06:55 Carbon Dioxide 33 mmol/L (22-30) H 12/18/17 06:55 Anion Gap 20 (10-20) 12/18/17 06:55 BUN 44 mg/dl (9-20) H 12/18/17 06:55 Creatinine 1.1 mg/dl (0.8-1.5) 12/18/17 06:55 Est GFR ( Amer) > 60 12/18/17 06:55 Est GFR (Non-Af Amer) > 60 12/18/17 06:55 POC Glucose (mg/dL) 93 mg/dL (65-110) 12/15/17 21:09 Random Glucose 117 mg/dL (75-110) H 12/18/17 06:55 Calcium 8.0 mg/dL (8.4-10.2) L 12/18/17 06:55 Magnesium 2.4 MG/DL (1.6-2.3) H 12/15/17 10:12 Total Bilirubin 0.3 mg/dl (0.2-1.3) 12/17/17 06:20 Direct Bilirubin 0.3 mg/ml (0.0-0.4) 12/11/17 05:10 GGT 298 U/L (8-78) H 12/11/17 05:10 AST 119 U/L (17-59) H D 12/17/17 06:20 ALT 145 U/L (21-72) H D 12/17/17 06:20 Alkaline Phosphatase 631 U/L (38-126) H 12/17/17 06:20 Total Creatine Kinase 273 U/L (55-170) H 12/13/17 09:42 Troponin I 0.8330 ng/mL (0.00-0.120) H* 12/15/17 09:57 C-React Prot High Sens > 15.00 mg/L (1.00-3.00) H 12/12/17 18:40 NT-Pro-B Natriuret Pep 8930 pg/ml (0-450) H 12/15/17 10:12 Total Protein 6.5 G/DL (6.3-8.2) 12/17/17 06:20 Total Protein (PEP) 6.4 g/dL (6.1-8.1) 12/16/17 05:40 Albumin 2.7 g/dL (3.5-5.0) L 12/17/17 06:20 Globulin 3.8 gm/dL (2.2-3.9) 12/17/17 06:20 Albumin/Globulin Ratio 0.7 (1.0-2.1) L 12/17/17 06:20 Hnjkb-5-Bxoeqvtws 9.8 Relative % 12/16/17 10:23 Ymbgf-1-Ttvcwvmdr 16.7 Relative % 12/16/17 10:23 Beta Globulins 14.3 Relative % 12/16/17 10:23 Gamma Globulins 25.6 Relative % 12/16/17 10:23 Dtbxj-4-Ohuctncxqbz 333 mg/dL (83-199) H 12/14/17 14:50 Triglycerides 76 mg/DL (0-149) 12/11/17 05:10 Cholesterol 137 mg/dL (0-199) 12/11/17 05:10 LDL Cholesterol Direct 80 mg/dL (0-129) 12/11/17 05:10 HDL Cholesterol 25 MG/DL (30-70) L 12/11/17 05:10 Lipase 24 U/L (23-300) 12/11/17 05:10 Angiotensin Convert Enz 41 U/L (9-67) 12/14/17 14:50 Procalcitonin 0.40 NG/ML (0.19-0.49) 12/09/17 22:07 Venous Blood Potassium 4.1 mmol/L (3.6-5.2) 12/09/17 15:14 Urine Color Yellow (YELLOW) 12/12/17 22:10 Urine Clarity Clear (Clear) 12/12/17 22:10 Urine pH 6.0 (5.0-8.0) 12/12/17 22:10 Ur Specific [place] 1.025 (1.003-1.030) 12/12/17 22:10 Urine Protein 30 mg/dL (NEGATIVE) 12/12/17 22:10 Urine Glucose (UA) Negative mg/dL (Normal) 12/12/17 22:10 Urine Ketones 15 mg/dL (NEGATIVE) 12/12/17 22:10 Urine Blood Trace-intact (NEGATIVE) 12/12/17 22:10 Urine Nitrate Negative (NEGATIVE) 12/12/17 22:10 Urine Bilirubin Negative (NEGATIVE) 12/12/17 22:10 Urine Urobilinogen 0.2 mg/dL (0.2-1.0) 12/12/17 22:10 Ur Leukocyte Esterase Negative Loreta/uL (Negative) 12/12/17 22:10 Urine RBC (Auto) 9 /hpf (0-3) H 12/12/17 22:10 Urine Microscopic WBC 1 /hpf (0-5) 12/12/17 22:10 Ur Squamous Epith Cells < 1 /hpf (0-5) 12/12/17 22:10 Urine Bacteria Rare (<OCC) 12/12/17 22:10 Hyaline Casts 1 /hpf (0-2) 12/12/17 22:10 Ur Random Creatinine 49 mg/dL (20-370) 12/16/17 10:23 U Random Total Protein 521 mg/g creat (22-128) H 12/16/17 10:23 Urine Albumin (PEP) 33.6 Relative % 12/16/17 10:23 Ur Protein Fractions See note 12/16/17 10:23 IgG, Serum (MS) >300.0 mg/dL (4-86) H 12/11/17 17:15 Vancomycin Trough < 5.0 ug/mL (5.0-10.0) L 12/18/17 06:55 IgG 1425.3 mg/dL (700.0-1600.0) 12/12/17 11:20 SHARONDA Screen Negative (Negative) 12/11/17 05:10 SHARONDA Titer TEST NOT PERFORMED 12/11/17 05:10 SHARONDA Titer 2 TEST NOT PERFORMED 12/11/17 05:10 SHARONDA Nuclear Membr Pat Negative (Negative) 12/11/17 17:15 SHARONDA Pattern TEST NOT PERFORMED 12/11/17 05:10 SHARONDA Pattern 2 TEST NOT PERFORMED 12/11/17 05:10 ANCA Screen Negative (NEGATIVE) 12/13/17 11:29 c-ANCA Titer TNP 12/13/17 11:29 Proteinase 3 (PR3) <1.0 AI (<1.0) 12/13/17 16:17 p-ANCA Titer TNP 12/13/17 11:29 Atypical p-ANCA Titer TNP 12/13/17 11:29 Myeloperoxidase Ab <1.0 AI (<1.0) 12/13/17 16:17 Double Strand DNA Ab 1 IU/mL 12/13/17 16:17 Anti-Mitochondrial Ab Negative (Negative) 12/11/17 17:15 Anti-Smooth Muscle Ab Negative (Negative) 12/11/17 17:15 Acetylchol Rcpt Block Ab <15 % inhibit (<15) 12/11/17 05:10 Acetylchol Rcpt Bind Ab <0.30 nmol/L (<=0.30) 12/11/17 05:10 Acetylchol Rcpt Modu Ab 6 12/11/17 05:10 Complement C3 135.0 mg/dL (88.0-165.0) 12/13/17 16:17 Complement C4 45.7 mg/dL (14.0-44.0) H 12/13/17 16:17 Hepatitis A IgM Ab Negative (NEGATIVE) 12/09/17 15:01 Hep Bs Antigen Negative (NEGATIVE) 12/09/17 15:01 Hep B Core IgM Ab Negative (NEGATIVE) 12/09/17 15:01 Hepatitis C Antibody Negative (NEGATIVE) 12/09/17 15:01 HIV 1&2 Ag/Ab, 4th Gen Nonreactive (Nonreactive) 12/14/17 14:50 Influenza Typ A,B (EIA) Negative for flu a/b (NEGATIVE) 12/09/17 15:41 Ur L.pneumophila Ag Negative (NEGATIVE) 12/09/17 10:57 Mycoplasma pneumon IgG 1.01 (<=0.90) H 12/09/17 21:00 Mycoplasma pneumon IgM 75 U/mL (<770) 12/09/17 21:00 Anti-Staphylolysin O Negative (NEGATIVE) 12/14/17 14:50 - Hospital Course Hospital Course: Joaquin is 42-year-old male with PMH of Asthma, gastritis and multifocal pneumonia was admitted due to persistent/recurrent pneumonia. Patient had previous hospitalization on [facility] due to same. 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 Patient stayed 4 days on ICU. On admission patient c/o abdominal pain, CT scan positive for pancreatitis. GI, ID, Cardio, Pulm were on board. Eosinophilia present, pulm considering Churg Cristopher synd. Thoracic surgery was involved, advised pt he will need broncho and VATS/lung biopsy whe clinically stable. All cultures negative. Patient condition stable, discharged home on augmentin. Advised f/u with cardio and Pulmonology. Discharge Exam - Additional Findings Additional findings: See note from today. Discharge Plan - Discharge Medications Prescriptions: Amoxicillin/Clavulanate [Augmentin 500 MG-125 MG] 1 tab PO Q12 14 Days #28 tab Aspirin [Aspirin Chewable] 81 mg PO DAILY 30 Days #30 chew Carvedilol [Coreg] 3.125 mg PO Q12 30 Days #60 tab Furosemide [Lasix] 20 mg PO DAILY 30 Days #30 tab Prednisone [Deltasone] 40 mg PO DAILY 7 Days #7 tablet Prednisone 20 mg PO DAILY 7 Days #7 tab Prednisone 10 mg PO DAILY 30 Days #30 tablet - Follow Up Plan Condition: FAIR Disposition: HOME/ ROUTINE Patient education suggested?: Yes Instructions: Pancreatitis (DC), Community-Acquired Pneumonia, Adult (DC), Leukocytosis (DC) Additional Instructions: message left by Dr. Zapien at [facility] for follow up appointment. they will call you to arrange appointment. Take prednisone 40mg daily for 1 week, then 20mg daily for 1 week, then 10mg daily for 1 week F/U with Primary Pulmonology Dr Gambino. Referrals: [facility] [place] [Outside]
[2017-12-18] MEDS ORDERED: Pantoprazole 40 mg EC Tab PO ONE (16:39)
[2017-12-18] MEDS ORDERED: Lidocaine 5% Patch TD SCH (21:00)
[2017-12-19 17:40] LABS: ANCA SCREEN NEGATIVE (NEGATIVE)
[2017-12-21 13:31] LABS: ALBUMIN (PEP) 2.3 g/dL (3.8-4.8); ALPHA-1-GLOBULIN (PEP) 0.5 g/dL (0.2-0.3)
--- NOTE | 2017-12-23 13:11 | PCM.SURG1 ---
Surgeon's Initial Post Op Note - Surgeon's Notes Surgeon: Davion Chow MD Technical Account Executive: NONE Type of Anesthesia: Local Pre-Operative Diagnosis: Poor venous access Operative Findings: US showed a patent right basilic vein. Post-Operative Diagnosis: Poor venous access Operation Performed: Single lumen picc placement right basilic vein, 30 cm. Tip is in the SVC. Specimen/Specimens Removed: none Estimated Blood Loss: EBL {In ML}: 2 Blood Products Given: N/A Drains Used: No Drains Post-Op Condition: Fair Date of Surgery/Procedure: 12/16/17 Time of Surgery/Procedure: 14:35
--- NOTE | 2017-12-23 13:20 | VASCULAR ---
PROCEDURE: Date of procedure: 12/16/2017 Procedure: 1. Placement of a right arm PICC with ultrasound and fluoroscopic guidance, CPT 57979 2. PICC tip confirmation with spot radiograph and is in the superior vena cava Medications: 1 percent lidocaine Total Fluoro time: 17.1 seconds Radiation: 2.06 MGy EBL: 2 cc HISTORY: Poor venous access TECHNIQUE: Following informed consent and procedure time-out, the patient was placed supine on the interventional table and the right arm prepped and draped in the usual sterile fashion. Ultrasound showed a patent and compressible right basilic vein. After the skin was anesthetized with lidocaine, the basilic vein was accessed with micro micropuncture technique using ultrasound guidance. A guidewire was then advanced under fluoroscopic guidance into the superior vena cava. An image documenting ultrasound guidance for vascular access was permanently saved. The length of the single-lumen 4 [place] PICC was trimmed to 34 centimeters and advanced through a peel-away sheath. The PICC was position with tip of PICC confirm a spot radiograph the superior vena cava. The PICC was secured to the patient's skin. The PICC was flushed. A biopatch and sterile dressing was applied. IMPRESSION: Placement of a single-lumen 4 [place]i PICC trimmed to 34 centimeters via right basilic vein. The tip of the PICC is confirmed with spot radiograph and is in the superior vena cava.
== END 2017-12-18 17:16 | disposition home or self-care (01) | DRG 871 ==
LOC: H.ER 11:13 → H.ERHOLD 15:15 → H.TEL 18:16 → H.ICU/CCU 12-12 13:05 → H.MEDSURG1 12-15 15:10
PROVIDERS: ADMIT Family Medicine Geriatric Medicine; ATTEND Family Medicine Geriatric Medicine
PROC: 02HV33Z Insertion of Infusion Device into Superior Vena Cava, Percutaneous Approach (ICD-10-PCS; principal; 2017-12-16)
DX: A41.9 Sepsis, unspecified organism (principal); K85.90 Acute pancreatitis without necrosis or infection, unspecified; I21.4 Non-ST elevation (NSTEMI) myocardial infarction; J18.9 Pneumonia, unspecified organism; J96.01 Acute respiratory failure with hypoxia; N17.9 Acute kidney failure, unspecified; E46 Unspecified protein-calorie malnutrition; I42.9 Cardiomyopathy, unspecified; J98.11 Atelectasis; R57.9 Shock, unspecified; L80 Vitiligo; J45.909 Unspecified asthma, uncomplicated; R74.0 Nonspecific elevation of levels of transaminase and lactic acid dehydrogenase [LDH]; D72.1 Eosinophilia; K29.00 Acute gastritis without bleeding; R91.8 Other nonspecific abnormal finding of lung field; Y95 Nosocomial condition; K21.9 Gastro-esophageal reflux disease without esophagitis; R59.0 Localized enlarged lymph nodes

== ENCOUNTER 2018-01-24 23:15 | Emergency (ER) | payer OTHER, SELFPAY ==
[2018-01-24] MEDS: Sodium Chloride 0.9% 1,000 ML IV SCH (23:59)
--- NOTE | 2018-01-25 00:07 | ED PDOC ---
HPI: Abdomen Chief Complaint (Provider): abdominal pain History Per: Patient History/Exam Limitations: no limitations Onset/Duration Of Symptoms: Days (10) Outside of [place] travel?: No Current Symptoms Are (Timing): Constant Pain Scale Rating Of: 9 Location Of Pain/Discomfort: Periumbilical Quality Of Discomfort: Cramping Associated Symptoms: Loss Of Appetite. denies: Fever, Chills, Nausea, Vomiting , Diarrhea Exacerbating Factors: Food Alleviating Factors: None Last Bowel Movement: Today (soft) Additional History Per: Patient <Alina Wolfe - Last Filed: 01/25/18 02:50> <Teddy Bang - Last Filed: 01/25/18 05:24> Time Seen by Provider: 01/24/18 23:35 Chief Complaint (Nursing): Abdominal Pain Additional Complaint(s): 42 yr old M presents to ED with complaint of worsening periumbilical abdominal pain x 1.5 weeks. PMHx includes asthma, gastritis, pancreatitis and multifocal pneumonia. Denies fevers, chills, nausea, vomiting, dysuria. He tolerated soup/ broth 2 hrs ago. Tramadol for the pain 4hrs ago did not help. Patient reports he has one glass of sangria last night, denies drugs or tobacco use. Patient has appt with GI-Dr. Heart on 02/12/18. PMD: [facility] (Alina Wolfe) Supervising Attending Note - Supervising Attending Note The Documented history was done by the: Physician Machinist Outside The documented physical exam was done by the: Physician Machinist Outside - Attestation: I have personally seen and examined this patient.: Yes I have fully participated in the care of the patient.: Yes I have reviewed all pertinent clinical information: Yes <Teddy Bang - Last Filed: 01/25/18 05:24> Past Medical History - Medical History PMH: Asthma, Gastritis, Pancreatitis, Pneumonia Denies: HIV, Chronic Kidney Disease - Surgical History Surgical History: No Surg Hx - Family History Family History: States: Unknown Family Hx - Living Arrangements Living Arrangements: With Family - Social History Current smoker - smoking cessation education provided: No Ex-Smoker (has not smoked in the last 12 months): No Alcohol: Social Drugs: Denies <Alina Wolfe - Last Filed: 01/25/18 02:50> <Teddy Bang Chow - Last Filed: 01/25/18 05:24> Vital Signs: Last Vital Signs Temp 98.0 F 01/25/18 03:10 Pulse 88 01/25/18 03:10 Resp 18 01/25/18 03:10 BP 122/84 01/25/18 03:10 Pulse Ox 99 01/25/18 03:10 - Home Medications Home Medications: Ambulatory Orders Medication Instructions Recorded Prednisone [Deltasone] 40 mg PO DAILY 7 Days #7 tablet 12/18/17 traMADol [Ultram] 50 mg PO TID PRN 01/25/18 - Allergies Allergies/Adverse Reactions: Allergies Allergy/AdvReac Type Severity Reaction Status Date / Time No Known Allergies Allergy Verified 04/24/16 17:23 Review of Systems Constitutional: Negative for: Fever, Chills, Weakness Eyes: Negative for: Vision Change ENT: Negative for: Nose Discharge, Nose Congestion, Throat Pain Cardiovascular: Negative for: Chest Pain, Palpitations, Light Headedness Respiratory: Positive for: Wheezing (minimal, chronic per patient). Negative for: Cough, Shortness of Breath, Hemoptysis Gastrointestinal: Positive for: Abdominal Pain. Negative for: Nausea, Vomiting , Diarrhea, Constipation Genitourinary Male: Negative for: Dysuria, Frequency Musculoskeletal: Negative for: Neck Pain, Shoulder Pain, Arm Pain Skin: Positive for: Other (vitiligo). Negative for: Rash Neurological: Negative for: Weakness, Confusion, Altered Mental Status, Headache , Dizziness <Alina Wolfe - Last Filed: 01/25/18 02:50> Physical Exam - Physical Exam Appears: Positive for: No Acute Distress Head Exam: Positive for: ATRAUMATIC, NORMOCEPHALIC Skin: Positive for: Warm, Dry. Negative for: Normal Color (vitiligo) Eye Exam: Positive for: EOMI, PERRL ENT: Positive for: TM Is/Are (normal bilaterally). Negative for: Pharyngeal Erythema, Tonsillar Exudate Neck: Positive for: Painless ROM, Supple Cardiovascular/Chest: Positive for: Regular Rate, Rhythm. Negative for: Gallop , Murmur Respiratory: Positive for: Wheezing (minimal expiratory). Negative for: Crackles, Rales, Rhonchi Pulses-Carotid (L): 2+ Pulses-Carotid (R): 2+ Pulses-Radial (L): 2+ Pulses-Radial (R): 2+ Gastrointestinal/Abdominal: Positive for: Bowel Sounds (present), Soft, Tenderness (periumbilical area). Negative for: Mass, Distended, Guarding, Rebound Back: Negative for: L CVA Tenderness, R CVA Tenderness Extremity: Positive for: Normal ROM. Negative for: Pedal Edema, Calf Tenderness Lymphatic: Negative for: Adenopathy Neurologic/Psych: Positive for: Alert, inspector quality assurance II-XII (grossly intact), Oriented, Mood/Affect (normal/full range). Negative for: Motor/Sensory Deficits <Alina Wolef - Last Filed: 01/25/18 02:50> - Laboratory Results Result Diagrams: 01/25/18 00:07 01/25/18 00:07 - ECG O2 Sat by Pulse Oximetry: 98 <Alina Wolef - Last Filed: 01/25/18 02:50> - Laboratory Results Result Diagrams: 01/25/18 00:07 01/25/18 00:07 <Teddy Bang - Last Filed: 01/25/18 05:24> - Progress ED Course And Treament: -CBC w/diff: WBC 19, likely secondary to oral prednisone intake, rest wnl -CMP: wnl -lipase: wnl -Udip: negative -1L NS IV bolus, Toradol 30 mg IV once -Abd US: wnl -02:47: Patient symptoms improved, remained afebrile and stable. (Alina Wolfe) Disposition - Patient ED Disposition Is Patient to be Admitted: No Counseled Patient/Family Regarding: Diagnosis, Need For Followup - Disposition Disposition: Routine/Home Disposition Time: 02:48 <Alina Wolfe - Last Filed: 01/25/18 02:50> <Teddy Bang - Last Filed: 01/25/18 05:24> - Clinical Impression Clinical Impression: Abdominal pain - Disposition Condition: STABLE Additional Instructions: -Resume home medications as prescribed -Follow up with PMD in 1-2 days, follow up with GI as scheduled for 02/12/18 -ER precautions reviewed, return to ED if symptoms persist or if any concerns Instructions: Stomach Ache and Stomach Upset Forms: [employer] (Yoruba)
[2018-01-25 00:15] LABS: BASO # 0.1 K/uL (0.0-0.2); BASO % 0.5 % (0.0-2.0); EOS % 36.6 % (0.0-4.0); HEMOGLOBIN 13.3 g/dL (12.0-18.0); LYMPH # 3.3 K/uL (1.0-4.3); LYMPH % 17.3 % (20.0-40.0); MEAN CELL VOLUME 90.1 fl (80.0-94.0); MEAN CORPUSCULAR HEMOGLOBIN 30.1 pg (27.0-31.0); MEAN CORPUSCULAR HGB CONC 33.4 g/dL (33.0-37.0); MEAN PLATELET VOLUME 8.3 fl (7.2-11.7); MONO # 1.2 K/uL (0.0-0.8); MONO % 6.1 % (0.0-10.0); NEUT # 7.5 K/uL (1.8-7.0); NEUT % 39.5 % (50.0-75.0); NRBC % 0.1 % (0.0-0.0); PLATELET COUNT 222 K/uL (130-400); RBC 4.41 Mil/uL (4.40-5.90)
[2018-01-25] MEDS: Sodium Chloride 0.9% 1,000 ML IV SCH (00:48)
[2018-01-25 01:56] LABS: ALB/GLOB RATIO 0.9 (1.0-2.1); ALBUMIN 3.5 g/dL (3.5-5.0); ALT/SGPT 41 U/L (21-72); AST/SGOT 41 U/L (17-59); BLOOD UREA NITROGEN 22 mg/dl (9-20); CALCIUM 8.7 mg/dL (8.4-10.2); GFR AFRICAN-AMERICAN > 60; GFR NON-AFRICAN AMERICAN > 60; LIPASE 32 U/L (23-300)
[2018-01-25 02:17] LABS: ANISOCYTOSIS SLIGHT; EOSINOPHIL 33 % (0-7); LYMPHOCYTE 16 % (20-50); MONOCYTE 7 % (0-10); NEUTROPHIL 42 % (42-75); POIKILOCYTOSIS SLIGHT; REACTIVE LYMPHOCYTES 2 % (0-0); TOTAL CELLS COUNTED 100
[2018-01-25 02:18] LABS: HYPOCHROMIC SLIGHT; PLATELET ESTIMATE NORMAL (NORMAL); STOMATOCYTES SLIGHT
[2018-01-25 03:12] VITALS: BP 122/84; PULSE 88; RESP 18; TEMP 98; O2SAT 99
[2018-01-25 03:40] LABS: BARBITURATES, UR NEGATIVE (NEGATIVE); BENZODIAZEPINES, UR NEGATIVE (NEGATIVE); OPIATES, UR NEGATIVE (NEGATIVE); PHENCYCLIDINE, UR NEGATIVE (NEGATIVE)
--- NOTE | 2018-01-25 08:01 | US ---
HISTORY: abdominal pain, hx pancreatitis COMPARISON: None. TECHNIQUE: Sonographic evaluation of the abdomen. FINDINGS: LIVER: Measures 16.8 cm. Normal echogenicity of the liver parenchyma. No mass. No intrahepatic bile duct dilatation. GALLBLADDER: Unremarkable. No gallstones. COMMON BILE DUCT: Measures 3.3 mm. No stones. No dilatation. PANCREAS: Unremarkable as visualized. No mass. No ductal dilatation. RIGHT KIDNEY: Measures 9.9cm. Normal echogenicity. No calculus, mass, or hydronephrosis. LEFT KIDNEY: Measures 10.6cm. Normal echogenicity. No calculus, mass, or hydronephrosis. SPLEEN: Normal in size, measuring 10.0 cm with normal overall contour. No mass. AORTA: No aneurysmal dilatation. IVC: Unremarkable. OTHER FINDINGS: None. IMPRESSION: Unremarkable abdominal sonogram.
== END 2018-01-25 02:50 | disposition home or self-care (01) ==
LOC: H.ER 23:15
DX: R10.9 Unspecified abdominal pain (principal); J45.909 Unspecified asthma, uncomplicated; Z87.891 Personal history of nicotine dependence
CPT/HCPCS: 76700; 80053; 80320; 80324; 80345; 80346; 80349; 80353; 80358; 80361; 83690; 83992; 85025; 96374; 99283; J1885; J7040

== ENCOUNTER 2018-01-26 13:22 | Emergency (ER) | payer SELFPAY ==
--- NOTE | 2018-01-26 13:50 | ED PDOC ---
HPI: Abdomen Time Seen by Provider: 01/26/18 13:42 Chief Complaint (Nursing): Abdominal Pain Chief Complaint (Provider): abd pain History Per: Patient Additional Complaint(s): 42-year-old male presents to emergency department with epigastric pain ongoing for several months. Patient was seen for same 2 days ago and was discharged after labs and US were normal. 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 He has had persistent nausea with no vomiting and he denies any diarrhea or constipation. Patient has been taking tramadol for the pain which helps somewhat. Patient states he used to take Protonix daily but has been off this medication for 3 weeks. He denies any fever or chills. Patient currently taking prednisone daily secondary to persistent asthma. He does state that this morning he woke up with wheezing so he took more prednisone than he was supposed to according to his taper dose. Patient states he should have taken 20 mg PO prednisone but instead took 40 mg. Patient denies any chest pain but does have mild shortness of breath which he has had for several months after being diagnosed with multifocal pneumonia. Patient is tolerating liquids and solids but has decreased appetite. No associated headache or dizziness. PMD: [facility] Past Medical History Reviewed: Historical Data, Nursing Documentation, Vital Signs Vital Signs: Last Vital Signs Temp 97.8 F 01/26/18 18:46 Pulse 78 01/26/18 18:46 Resp 18 01/26/18 18:46 BP 122/56 L 01/26/18 18:46 Pulse Ox 99 01/26/18 18:46 - Medical History PMH: Asthma, Gastritis, Pancreatitis, Pneumonia - Surgical History Surgical History: No Surg Hx - Family History Family History: States: No Known Family Hx - Living Arrangements Living Arrangements: With Family - Social History Current smoker - smoking cessation education provided: No Alcohol: None Drugs: Denies - Home Medications Home Medications: Ambulatory Orders Medication Instructions Recorded Prednisone [Deltasone] 40 mg PO DAILY 7 Days #7 tablet 12/18/17 traMADol [Ultram] 50 mg PO TID PRN 01/25/18 Pantoprazole Sodium [Protonix] 40 mg PO DAILY #30 tablet. 01/26/18 Sucralfate [Carafate] 2 gm PO BID #30 tablet 01/26/18 - Allergies Allergies/Adverse Reactions: Allergies Allergy/AdvReac Type Severity Reaction Status Date / Time No Known Allergies Allergy Verified 01/26/18 13:24 Review of Systems ROS Statement: Except As Marked, All Systems Reviewed And Found Negative Constitutional: Negative for: Fever, Chills Cardiovascular: Negative for: Chest Pain Respiratory: Positive for: Shortness of Breath, Wheezing. Negative for: Cough Gastrointestinal: Positive for: Nausea, Abdominal Pain. Negative for: Vomiting , Diarrhea, Constipation, Melena, Hematochezia, Hematemesis, Rectal Pain Genitourinary Male: Negative for: Dysuria Neurological: Negative for: Headache, Dizziness Physical Exam - Reviewed Nursing Documentation Reviewed: Yes Vital Signs Reviewed: Yes - Physical Exam Appears: Positive for: Well, Non-toxic, No Acute Distress Skin: Negative for: Rash Eye Exam: Positive for: Normal appearance Cardiovascular/Chest: Positive for: Regular Rate, Rhythm Respiratory: Positive for: Normal Breath Sounds, Wheezing. Negative for: Respiratory Distress Gastrointestinal/Abdominal: Positive for: Bowel Sounds (normoactive in all 4 quadrants), Soft, Tenderness (epigastric). Negative for: Distended, Guarding, Rebound Back: Negative for: L CVA Tenderness, R CVA Tenderness Extremity: Positive for: Normal ROM Neurologic/Psych: Positive for: Alert, Oriented - Laboratory Results Result Diagrams: 01/26/18 14:50 01/26/18 14:50 Urine dip results: Negative for: Leukocyte Esterase, Blood, Nitrate, Ketones, Glucose, Bilirubin, Protein - ECG Interpretation Of ECG: Normal sinus rhythm 88 bpm, no acute changes, reviewed by PA and ED attending. O2 Sat by Pulse Oximetry: 100 Pulse Ox Interpretation: Normal - Other Rad CXR X-Ray: Interpreted by Me, Viewed By Me X-Ray Interpretation: no acute finding CT abd and pelvis with IV contrast X-Ray: Read By Radiologist X-Ray Interpretation: see below Medical Decision Making Medical Decision Makin42 year old with abd pain Patient is requesting to be seen by Dr. Gabriela SMITH made aware and evaluated patient. Plan: CXR EKG CT abd and pelvis with IV contrast CBC CMP Lipase Urine dip IVF PO protonix CT: FINDINGS: LOWER THORAX: Prior left basilar nodules are not identified currently. Potential tiny nodules are less apparent at the right middle lobe in image number 1 with fibrosis favored over nodule in image 5 and image 6 laterally. No pleural or pericardial effusion. Tiny hiatal hernia identified. LIVER: There is mildly inhomogeneous enhancement appreciated throughout the right greater than left lobes liver which does not appear to be a function of passive venous congestion it is not a typical hepatitis pattern. Limited periportal edema is identified as well. The etiology is unclear but appears to diffuse and further clinical correlation is advised including but not limited to hepatic function testing. GALLBLADDER AND BILE DUCTS: Completely contracted. No radiodense cholelithiasis. PANCREAS: Unremarkable. No gross lesion or ductal dilatation. SPLEEN: Unremarkable. ADRENALS: Unremarkable. No mass. KIDNEYS AND URETERS: Unremarkable. No hydronephrosis. No solid mass. VASCULATURE: Unremarkable. No aortic aneurysm. BOWEL: Stomach is mildly distended with retained fluid and food. There is no bowel obstruction appreciated however there is questionable thickening of a segment of the proximal transverse colon best seen in images 74 through 90 series 3 with borderline pericolic reaction raising question of potential segmental colitis. Neoplasm not excluded follow-up colonoscopy is advised. APPENDIX: Normal appendix. PERITONEUM: A tiny umbilical hernia is identified containing fat. LYMPH NODES: Unremarkable. No enlarged lymph nodes. BLADDER: Unremarkable. REPRODUCTIVE: Unremarkable. BONES: No acute fracture. OTHER FINDINGS: None. IMPRESSION: 1. Heterogeneous hepatic enhancement is appreciated without hepatomegaly, somewhat greater the right than left lobes of liver. Mild periportal edema is also identified. Etiology is unclear. No gross biliary tree obstruction is appreciable in the gallbladder is contracted. 2. Mural thickening of relatively short segment of the proximal transverse colon is suspected. Lack oral contrast limits evaluation. Trace pericolic reaction may indicate segmental colitis though neoplasm is not excluded and follow-up colonoscopy is recommended. 3. Prior pancreatitis pattern appears to have resolved. 4. Left basilar pulmonary nodule not identified. Two questionable nodules right middle lobe base. Dr. Ochoa discussed results of CT with patient. Patient discharged with rx protonix and carafate. He has follow up with GI on 02/12/18. Patient is stable for discharge. Disposition - Clinical Impression Clinical Impression: Abdominal pain, Gastritis - Disposition Referrals: [facility] [Outside] Disposition Time: 11:04 Condition: STABLE Additional Instructions: Followup with GI doctor as directed on February 12. Take protonix and carafate as directed. Return to ER for any worse or new symptoms. Prescriptions: Pantoprazole Sodium [Protonix] 40 mg PO DAILY #30 tablet. Sucralfate [Carafate] 2 gm PO BID #30 tablet Instructions: Gastritis, Acute Abdomen (Belly Pain), Ulcer and Gastritis Diet Forms: [employer] (Chinese) Results - Lab Results Lab Results: 01/26/18 01/26/18 14:50 14:50 WBC 11.9 H RBC 4.31 L Hgb 12.7 Hct 38.8 MCV 90.1 MCH 29.6 MCHC 32.8 L RDW 16.4 H Plt Count 250 MPV 8.1 Neut % (Auto) 78.8 H Lymph % (Auto) 8.9 L Casey % (Auto) 1.8 Eos % (Auto) 10.3 H Baso % (Auto) 0.2 Neut # (Auto) 9.3 H Lymph # (Auto) 1.1 Casey # (Auto) 0.2 Eos # (Auto) 1.2 H Baso # (Auto) 0.0 Sodium 139 Potassium 4.7 Chloride 100 Carbon Dioxide 24 Anion Gap 20 BUN 19 Creatinine 1.0 Est GFR ( Amer) > 60 Est GFR (Non-Af Amer) > 60 Random Glucose 143 H Calcium 8.8 Total Bilirubin 0.4 AST 41 ALT 49 Alkaline Phosphatase 223 H Total Protein 7.9 Albumin 3.6 Globulin 4.3 H Albumin/Globulin Ratio 0.8 L Lipase 39
[2018-01-26] MEDS ORDERED: Pantoprazole 40 mg EC Tab PO STA (14:07)
[2018-01-26] MEDS ORDERED: Sodium Chloride 0.9% 1,000 ML IV STA (14:07)
[2018-01-26 14:54] LABS: BASO % 0.2 % (0.0-2.0); EOS # 1.2 K/uL (0.0-0.7); EOS % 10.3 % (0.0-4.0); HEMOGLOBIN 12.7 g/dL (12.0-18.0); LYMPH # 1.1 K/uL (1.0-4.3); LYMPH % 8.9 % (20.0-40.0); MEAN CELL VOLUME 90.1 fl (80.0-94.0); MEAN CORPUSCULAR HEMOGLOBIN 29.6 pg (27.0-31.0); MEAN CORPUSCULAR HGB CONC 32.8 g/dL (33.0-37.0); MEAN PLATELET VOLUME 8.1 fl (7.2-11.7); MONO # 0.2 K/uL (0.0-0.8); MONO % 1.8 % (0.0-10.0); NEUT # 9.3 K/uL (1.8-7.0); NEUT % 78.8 % (50.0-75.0); RBC 4.31 Mil/uL (4.40-5.90); RED CELL DISTRIBUTION WIDTH 16.4 % (11.5-14.5); WHITE BLOOD COUNT 11.9 K/uL (4.8-10.8)
[2018-01-26 15:06] LABS: ALB/GLOB RATIO 0.8 (1.0-2.1); ALBUMIN 3.6 g/dL (3.5-5.0); ALT/SGPT 49 U/L (21-72); AST/SGOT 41 U/L (17-59); BLOOD UREA NITROGEN 19 mg/dl (9-20); CALCIUM 8.8 mg/dL (8.4-10.2); GFR AFRICAN-AMERICAN > 60; GFR NON-AFRICAN AMERICAN > 60; LIPASE 39 U/L (23-300)
[2018-01-26] MEDS ORDERED: Iohexol 300 100 ML IJ ONE (15:32)
--- NOTE | 2018-01-26 16:55 | CT ---
PROCEDURE: CT Abdomen and Pelvis with contrast HISTORY: epigastric pain COMPARISON: Abdomen ultrasound 01/24/[address] and abdomen [address] without contrast 12/11/2017. TECHNIQUE: Following the intravenous administration of iodinated contrast material, a CT examination of the abdomen and pelvis performed from the domes of the diaphragms to the symphysis pubis with reformatted datasets provided not only axial but also sagittal and coronal planes. Oral contrast was not administered as per referring physician request. Contrast dose: Omnipaque 300, 90 cc Radiation dose: Total exam DLP = 317.02 mGy-cm. This CT exam was performed using one or more of the following dose reduction techniques: Automated exposure control, adjustment of the mA and/or kV according to patient size, and/or use of iterative reconstruction technique. FINDINGS: LOWER THORAX: Prior left basilar nodules are not identified currently. Potential tiny nodules are less apparent at the right middle lobe in image number 1 with fibrosis favored over nodule in image 5 and image 6 laterally. No pleural or pericardial effusion. Tiny hiatal hernia identified. LIVER: There is mildly inhomogeneous enhancement appreciated throughout the right greater than left lobes liver which does not appear to be a function of passive venous congestion it is not a typical hepatitis pattern. Limited periportal edema is identified as well. The etiology is unclear but appears to diffuse and further clinical correlation is advised including but not limited to hepatic function testing. GALLBLADDER AND BILE DUCTS: Completely contracted. No radiodense cholelithiasis. PANCREAS: Unremarkable. No gross lesion or ductal dilatation. SPLEEN: Unremarkable. ADRENALS: Unremarkable. No mass. KIDNEYS AND URETERS: Unremarkable. No hydronephrosis. No solid mass. VASCULATURE: Unremarkable. No aortic aneurysm. BOWEL: Stomach is mildly distended with retained fluid and food. There is no bowel obstruction appreciated however there is questionable thickening of a segment of the proximal transverse colon best seen in images 74 through 90 series 3 with borderline pericolic reaction raising question of potential segmental colitis. Neoplasm not excluded follow-up colonoscopy is advised. APPENDIX: Normal appendix. PERITONEUM: A tiny umbilical hernia is identified containing fat. LYMPH NODES: Unremarkable. No enlarged lymph nodes. BLADDER: Unremarkable. REPRODUCTIVE: Unremarkable. BONES: No acute fracture. OTHER FINDINGS: None. IMPRESSION: 1. Heterogeneous hepatic enhancement is appreciated without hepatomegaly, somewhat greater the right than left lobes of liver. Mild periportal edema is also identified. Etiology is unclear. No gross biliary tree obstruction is appreciable in the gallbladder is contracted. 2. Mural thickening of relatively short segment of the proximal transverse colon is suspected. Lack oral contrast limits evaluation. Trace pericolic reaction may indicate segmental colitis though neoplasm is not excluded and follow-up colonoscopy is recommended. 3. Prior pancreatitis pattern appears to have resolved. 4. Left basilar pulmonary nodule not identified. Two questionable nodules right middle lobe base.
--- NOTE | 2018-01-26 16:56 | RAD ---
HISTORY: wheezing COMPARISON: 12/16/2017 FINDINGS: LUNGS: Resolution of bilateral primarily upper lobe infiltrates. PLEURA: No significant pleural effusion identified, no pneumothorax apparent. CARDIOVASCULAR: Normal. OSSEOUS STRUCTURES: No significant abnormalities. VISUALIZED UPPER ABDOMEN: Normal. OTHER FINDINGS: None. IMPRESSION: No active disease. Concordant results with the preliminary interpretation rendered by the emergency department physician procedure.
[2018-01-26 18:47] VITALS: BP 122/56; PULSE 78; RESP 18; TEMP 97.8
--- NOTE | 2018-01-27 08:24 | CARD ---
APPROVED REPORT EKG Measurement Heart [id number] <Conclusion> Normal sinus rhythm Possible Inferior infarct, age undetermined Possible Anterior infarct, age undetermined Abnormal ECG
[2018-01-27 10:46] VITALS: O2SAT 100
== END 2018-01-26 18:46 | disposition home or self-care (01) ==
LOC: H.ER 13:22
DX: R10.13 Epigastric pain (principal); K29.70 Gastritis, unspecified, without bleeding; J45.909 Unspecified asthma, uncomplicated
CPT/HCPCS: 71045; 74177; 80053; 83690; 85025; 93005; 96360; 99282; J7040; Q9967

== ENCOUNTER 2018-02-06 01:46 | Emergency (ER) | payer SELFPAY ==
[2018-02-06] MEDS ORDERED: Albuterol-Ipratrop 3 mg / 0.5 (3 ml) UD INH STA ×3 (02:35)
[2018-02-06] MEDS ORDERED: Sodium Chloride 0.9% 1,000 ML IV STA (02:39)
--- NOTE | 2018-02-06 02:44 | ED PDOC ---
HPI: SOB/CHF/COPD Time Seen by Provider: 02/06/18 02:23 Chief Complaint (Nursing): Shortness Of Breath History Per: Patient History/Exam Limitations: no limitations Onset/Duration Of Symptoms: Days Current Symptoms Are (Timing): Better Initiating Event: Exposure To Smoke Additional Complaint(s): Hx of COPD, gastritis, pancreatitis presenting with wheezing, states he was exposed to smoke 2 days ago and since has had difficulty breathing with wheezing , dry cough. Denies fevers, chills. States he took 40mg of predisone today. Also states he's had continuous epigastric pain for the past 2 weeks, has an appointment on 02/12. Was in ER for similar end of January and had negative workup. States he's been taking PPI's daily. Denies alcohol, drug use. Past Medical History Reviewed: Historical Data, Nursing Documentation, Vital Signs Vital Signs: Last Vital Signs Temp 98.3 F 02/06/18 02:06 Pulse 96 H 02/06/18 02:06 Resp 20 02/06/18 02:37 BP 105/71 02/06/18 02:06 Pulse Ox 95 02/06/18 03:32 - Medical History PMH: Asthma, Gastritis, Pancreatitis, Pneumonia Denies: HIV, Chronic Kidney Disease - Family History Family History: States: Unknown Family Hx - Home Medications Home Medications: Ambulatory Orders Medication Instructions Recorded Prednisone [Deltasone] 40 mg PO DAILY 7 Days #7 tablet 12/18/17 traMADol [Ultram] 50 mg PO TID PRN 01/25/18 Pantoprazole Sodium [Protonix] 40 mg PO DAILY #30 tablet. 01/26/18 Sucralfate [Carafate] 2 gm PO BID #30 tablet 01/26/18 - Allergies Allergies/Adverse Reactions: Allergies Allergy/AdvReac Type Severity Reaction Status Date / Time No Known Allergies Allergy Verified 01/26/18 13:24 Review of Systems ROS Statement: Except As Marked, All Systems Reviewed And Found Negative Respiratory: Positive for: Cough, Shortness of Breath Gastrointestinal: Positive for: Abdominal Pain. Negative for: Nausea, Vomiting , Diarrhea, Constipation Physical Exam - Reviewed Nursing Documentation Reviewed: Yes Vital Signs Reviewed: Yes - Physical Exam Appears: Positive for: Well, Non-toxic, No Acute Distress Head Exam: Positive for: ATRAUMATIC, NORMAL INSPECTION, NORMOCEPHALIC Skin: Positive for: Normal Color, Warm, DRY Eye Exam: Positive for: EOMI, Normal appearance, PERRL ENT: Positive for: Normal ENT Inspection Neck: Positive for: Normal, Painless ROM Cardiovascular/Chest: Positive for: Regular Rate, Rhythm Respiratory: Positive for: Wheezing. Negative for: Stridor, Respiratory Distress Gastrointestinal/Abdominal: Positive for: Normal Exam, Soft Back: Positive for: Normal Inspection Extremity: Positive for: Normal ROM Neurologic/Psych: Positive for: Alert, Oriented - Laboratory Results Result Diagrams: 02/06/18 03:00 02/06/18 03:00 - ECG O2 Sat by Pulse Oximetry: 95 Pulse Ox Interpretation: Normal Medical Decision Making Medical Decision Makin A/P: Hx of COPD, gastrits, pancreatitis presenting with wheezing and abd pain -abd pain likely result of gastriits from taking prednisone for months, will check lipase to r/o pancreatitis, patient requesting toradol, will give with PPI 330 -Patient's breathing much improved, no longer having abdominal pain. Leukocytosis is secondary to prolonged steroid usage. Will refer to clinic. Return precautions given. Disposition - Clinical Impression Clinical Impression: Gastritis, COPD (chronic obstructive pulmonary disease) - Patient ED Disposition Is Patient to be Admitted: No - Disposition Referrals: Dae Scott MD [Family Provider] - Disposition: Routine/Home Disposition Time: 03:31 Condition: IMPROVED Instructions: Exacerbation of COPD, Gastritis (DC) Forms: [employer] (Telugu)
[2018-02-06 03:05] LABS: HEMOGLOBIN 13.9 g/dL (12.0-18.0); MEAN CORPUSCULAR HEMOGLOBIN 29.9 pg (27.0-31.0); MEAN CORPUSCULAR HGB CONC 33.2 g/dL (33.0-37.0); RBC 4.65 Mil/uL (4.40-5.90); RED CELL DISTRIBUTION WIDTH 16.3 % (11.5-14.5); WHITE BLOOD COUNT 19.4 K/uL (4.8-10.8)
[2018-02-06 03:09] LABS: ALB/GLOB RATIO 0.8 (1.0-2.1); ALBUMIN 3.4 g/dL (3.5-5.0); ALT/SGPT 45 U/L (21-72); AST/SGOT 41 U/L (17-59); BILIRUBIN,DIRECT 0.4 mg/ml (0.0-0.4); BLOOD UREA NITROGEN 20 mg/dl (9-20); CALCIUM 8.8 mg/dL (8.4-10.2); GFR AFRICAN-AMERICAN > 60; GFR NON-AFRICAN AMERICAN > 60; LIPASE 29 U/L (23-300)
[2018-02-06] MEDS ORDERED: DiphenhydrAMINE 50 mg/ml Inj ONE (03:29)
[2018-02-06 06:31] VITALS: BP 128/72; PULSE 77; RESP 14; TEMP 98; O2SAT 98
== END 2018-02-06 06:31 | disposition home or self-care (01) ==
LOC: H.ER 01:46
DX: J44.9 Chronic obstructive pulmonary disease, unspecified (principal); K29.70 Gastritis, unspecified, without bleeding; Z79.52 Long term (current) use of systemic steroids
CPT/HCPCS: 80048; 80076; 83690; 85027; 96361; 96374; 96375; 99282; C9113; J1885; J7030

== ENCOUNTER 2018-02-08 21:59 | Emergency (ER) | payer MEDICAID, SELFPAY ==
[2018-02-08 22:20] VITALS: O2SAT 95
[2018-02-08 22:47] VITALS: BMI 21.2
[2018-02-08] MEDS ORDERED: Alum-Mag Hydrox-Simethicone Susp (30 mL) PO STA (23:13)
[2018-02-08] MEDS ORDERED: Albuterol-Ipratrop 3 mg / 0.5 (3 ml) UD INH STA ×3 (23:13→23:22)
--- NOTE | 2018-02-08 23:24 | ED PDOC ---
HPI: Asthma Time Seen by Provider: 02/08/18 22:51 Chief Complaint (Nursing): Shortness Of Breath Chief Complaint (Provider): shortness of breath and abdominal pain History Per: Patient History/Exam Limitations: no limitations Onset/Duration Of Symptoms: Days (1 month), Waxing/Waning Additional Complaint(s): pt reports asthma symptoms for a month, resolves intermittently with steroid/ nebs but also has gastritis so has had to stop taking prednisone Reports that today symptoms no relieved at home. Reports that the nebulizers in ER are "different" and work better and that toradol also helps with stomach pain if given IV. Has been taking omeprazole and tramadol with no relief. PMD in [facility] Past Medical History Reviewed: Historical Data, Nursing Documentation, Vital Signs Vital Signs: Last Vital Signs Temp 97.7 F 02/08/18 22:19 Pulse 103 H 02/08/18 22:19 Resp 16 02/08/18 22:19 BP 121/72 02/08/18 22:19 Pulse Ox 95 02/08/18 22:19 - Medical History PMH: Asthma, Gastritis, Pancreatitis, Pneumonia Denies: HIV, Chronic Kidney Disease - Family History Family History: States: Unknown Family Hx - Home Medications Home Medications: Ambulatory Orders Medication Instructions Recorded Albuterol 0.5% [Albuterol 0.5% 1 ml IH Q6 PRN 02/09/18 Inhal Cassidy (2.5 mg/0.5 ml) UD] Albuterol Sulfate [Ventolin Hfa] 2 puff IH Q6 PRN 02/09/18 Magnesium Oxide [Magox 400] 400 mg PO BID 02/09/18 Multivitamin [Multi-Vitamin Daily] 1 tab PO DAILY 02/09/18 Omeprazole 20 mg PO DAILY 02/09/18 traMADol [Ultram] 50 mg PO Q6 PRN 02/09/18 Aluminum Hydroxide/Magnesium 30 ml PO Q6 PRN #1 bottle 02/11/18 [Maalox Plus 30 ml] Azithromycin 500 mg PO DAILY #5 tablet 02/11/18 Prednisone 30 mg PO DAILY #14 tablet 02/11/18 - Allergies Allergies/Adverse Reactions: Allergies Allergy/AdvReac Type Severity Reaction Status Date / Time No Known Allergies Allergy Verified 02/09/18 10:02 Review of Systems ROS Statement: Except As Marked, All Systems Reviewed And Found Negative Respiratory: Positive for: Cough, Shortness of Breath, Wheezing Gastrointestinal: Positive for: Abdominal Pain. Negative for: Vomiting, Diarrhea, Melena, Hematochezia, Hematemesis Physical Exam - Reviewed Nursing Documentation Reviewed: Yes Vital Signs Reviewed: Yes - Physical Exam Appears: Positive for: Non-toxic, No Acute Distress Head Exam: Positive for: ATRAUMATIC, NORMOCEPHALIC Skin: Positive for: Warm, Dry Eye Exam: Positive for: EOMI, PERRL ENT: Negative for: Pharyngeal Erythema, Tonsillar Exudate Neck: Positive for: Painless ROM, Supple Cardiovascular/Chest: Positive for: Regular Rate, Rhythm. Negative for: Murmur Gastrointestinal/Abdominal: Positive for: Soft, Tenderness (epigastric) - ECG O2 Sat by Pulse Oximetry: 95 Disposition - Clinical Impression Clinical Impression: Gastritis, Asthma - Disposition Disposition: Transfer of Care Disposition Time: 00:00 Condition: STABLE Patient Signed Over To: Teddy Bang Handoff Comments: Pendint ER workup, reassessment and final ER disposition
[2018-02-08] MEDS ORDERED: Alum-Mag Hydrox-Simethicone Susp (30 mL) ONE (23:41)
[2018-02-08] MEDS ORDERED: Albuterol-Ipratrop 3 mg / 0.5 (3 ml) UD ONE ×2 (23:42→23:53)
--- NOTE | 2018-02-09 01:16 | ED PDOC ---
- ECG O2 Sat by Pulse Oximetry: 95 Medical Decision Making Medical Decision Makin:00 Patient endorsed to me by Dr. Lua pending reevaluation. 01:17 Patient reports improvement of symptoms and is stable for discharge. Scribe Attestation: Documented by John Purcell, acting as a scribe for Teddy Bang MD. Provider Scribe Attestation: All medical record entries made by the Scribe were at my direction and personally dictated by me. I have reviewed the chart and agree that the record accurately reflects my personal performance of the history, physical exam, medical decision making, and the department course for this patient. I have also personally directed, reviewed, and agree with the discharge instructions and disposition. Disposition Counseled Patient/Family Regarding: Diagnosis, Need For Followup, Rx Given - Clinical Impression Clinical Impression: Gastritis, Asthma - POA Present On Arrival: None - Disposition Disposition: Routine/Home Disposition Time: 01:17 Condition: STABLE Prescriptions: traMADol [Ultram] 50 mg PO Q6 #6 tab Instructions: Gastritis Forms: [facility] (Greenlandic)
[2018-02-09 01:41] VITALS: BP 111/76; PULSE 105; RESP 18; TEMP 97.4
[2018-02-09] MEDS ORDERED: Albuterol-Ipratrop 3 mg / 0.5 (3 ml) UD ONE (10:40)
== END 2018-02-09 01:15 | disposition home or self-care (01) ==
LOC: H.ER 21:59
DX: K29.70 Gastritis, unspecified, without bleeding (principal); J45.909 Unspecified asthma, uncomplicated
CPT/HCPCS: 94640; 96372; 99283; J1885

== ENCOUNTER 2018-02-09 09:55 | Inpatient (IN) | payer MEDICAID ==
[2018-02-09 09:55] VITALS: BMI 21.2
[2018-02-09] MEDS ORDERED: Albuterol-Ipratrop 3 mg / 0.5 (3 ml) UD INH STA (10:30)
--- NOTE | 2018-02-09 10:36 | CARD ---
APPROVED REPORT EKG Measurement Heart [id number] MI [id number] <Conclusion> Normal sinus rhythm Possible Inferior infarct, age undetermined Abnormal ECG
--- NOTE | 2018-02-09 10:42 | ED PDOC ---
HPI: SOB/CHF/COPD Time Seen by Provider: 02/09/18 10:05 Chief Complaint (Nursing): Shortness Of Breath Chief Complaint (Provider): Shortness of Breath History Per: Patient History/Exam Limitations: no limitations Onset/Duration Of Symptoms: Days Current Symptoms Are (Timing): Still Present Quality: Tightness Current Respiratory Medications: Prednisone Associated Symptoms: Anxiety, Other (shoulder pain). denies: Fever, Chills, Chest Pain Additional History Per: Family () Additional Complaint(s): 41 year old male with a history of asthma and COPD presents to the ED with complaining of difficulty breathing with tightness currently. Patient reports of associated bilateral shoulder pain onset for 3 days and currently feels anxious. For asthma he uses nebulizer and takes prednisone. He was seen in ED for the same symptoms last night. Denies cough, fever, chills, abdominal pain, or chest pain. PMD: [facility] Past Medical History Reviewed: Historical Data, Nursing Documentation, Vital Signs Vital Signs: Last Vital Signs Temp 97.3 F L 02/09/18 10:02 Pulse 106 H 02/09/18 15:36 Resp 18 02/09/18 12:51 BP 113/77 02/09/18 12:51 Pulse Ox 98 02/09/18 15:36 - Medical History PMH: Asthma, COPD, Gastritis, Pancreatitis, Pneumonia Denies: HIV, Chronic Kidney Disease - Surgical History Surgical History: No Surg Hx - Family History Family History: States: Unknown Family Hx - Home Medications Home Medications: Ambulatory Orders Medication Instructions Recorded Albuterol 0.5% [Albuterol 0.5% 1 ml IH Q6 PRN 02/09/18 Inhal Cassidy (2.5 mg/0.5 ml) UD] Albuterol Sulfate [Ventolin Hfa] 2 puff IH Q6 PRN 02/09/18 Magnesium Oxide [Magox 400] 400 mg PO BID 02/09/18 Multivitamin [Multi-Vitamin Daily] 1 tab PO DAILY 02/09/18 Omeprazole [Omeprazole] 20 mg PO DAILY 02/09/18 predniSONE [predniSONE Tab] 30 mg PO DAILY 02/09/18 traMADol [Ultram] 50 mg PO Q6 PRN 02/09/18 - Allergies Allergies/Adverse Reactions: Allergies Allergy/AdvReac Type Severity Reaction Status Date / Time No Known Allergies Allergy Verified 02/09/18 10:02 Curb-65 Severity Score - CURB-65 Severity Score Confusion: No Bun >19mg/dl (>7mmol/L): No Respiratory Rate greater than/equal to 30: No Systolic BP <90 or Diastolic BP less than/equal 60mmHg: No Age >64: No Curb-65 Score: 0 Percentage 30-day mortality: 0.6% Wells Criteria for PE - Wells Criteria for Pulmonary Embolism Clinical Signs and Symptoms of DVT: No P.E is #1 Diagnosis, or Equally Likely: No Heart Rate >100: No Immobilization at least 3 days;Surgery previous 4 weeks: No Previous, objectively diagnosed PE or DVT: No Hemoptysis: No Malignancy w/treatment within 6 months, or palliative: No Total Score: 0 Review of Systems ROS Statement: Except As Marked, All Systems Reviewed And Found Negative Constitutional: Negative for: Fever, Chills Cardiovascular: Negative for: Chest Pain Respiratory: Positive for: Shortness of Breath. Negative for: Cough Gastrointestinal: Negative for: Abdominal Pain Musculoskeletal: Positive for: Shoulder Pain Psych: Positive for: Anxiety Physical Exam - Reviewed Nursing Documentation Reviewed: Yes Vital Signs Reviewed: Yes - Physical Exam Appears: Positive for: Uncomfortable Head Exam: Positive for: ATRAUMATIC, NORMAL INSPECTION, NORMOCEPHALIC Skin: Positive for: Normal Color, Warm, Dry Eye Exam: Positive for: EOMI, Normal appearance, PERRL ENT: Positive for: Normal ENT Inspection Neck: Positive for: Normal, Painless ROM, Supple. Negative for: Decreased ROM Cardiovascular/Chest: Positive for: Regular Rate, Rhythm. Negative for: Murmur Respiratory: Positive for: Respiratory Distress (mild) Gastrointestinal/Abdominal: Positive for: Normal Exam, Bowel Sounds, Soft. Negative for: Tenderness, Guarding, Rebound Back: Positive for: Normal Inspection. Negative for: L CVA Tenderness, R CVA Tenderness Extremity: Positive for: Normal ROM. Negative for: Tenderness, Pedal Edema, Deformity Neurologic/Psych: Positive for: Alert, Oriented (x3), Mood/Affect (anxious). Negative for: Motor/Sensory Deficits - Laboratory Results Result Diagrams: 02/09/18 11:00 02/09/18 10:36 - ECG ECG: Positive for: Interpreted By Me, Viewed By Me ECG Rhythm: Positive for: Normal QRS, Normal ST Segment, Sinus Tachycardia Rate: 106 O2 Sat by Pulse Oximetry: 98 (RA) Pulse Ox Interpretation: Normal Medical Decision Making Medical Decision Making: Time: 1030 Initial Impression: shortness of breath and shoulder pain Differential Diagnosis includes but is not limited to: asthma exacerbation, ACS , anxiety Initial Plan: --Atrial blood gas --EKG --B-type Natriuretic Peptide --BMP --Troponin I --CBC w/ Differential --D-Dimer [COAG] --Chest Two Views [RAD] --Ativan 1mg --Duoneb 3mg/0.5mg (3ml) --IV Insertion --Reevaluation Time: 1106 HISTORY: dyspnea COMPARISON: Chest radiograph dated 01/26/2018. TECHNIQUE: Chest PA and lateral FINDINGS: LUNGS: Stable left basilar scarring. No active pulmonary disease. PLEURA: No significant pleural effusion identified. No pneumothorax apparent. CARDIOVASCULAR: Normal. OSSEOUS STRUCTURES: Unchanged. VISUALIZED UPPER ABDOMEN: Normal. OTHER FINDINGS: None. IMPRESSION: No active disease.\ 1300 Ddimer and troponin are elevated Time: 1310 PROCEDURE: CT Chest with contrast (Pulmonary Angiogram) HISTORY: chest pain COMPARISON: CT chest dated 12/17/2017. TECHNIQUE: Axial computed tomography images were obtained of the chest in the pulmonary arterial phase of enhancement. Coronal and sagittal reformatted images were created and reviewed. Intravenous contrast dose: 90 mL Visipaque 320 Radiation dose: Total exam DLP = 298 mGy-cm. This CT exam was performed using one or more of the following dose reduction techniques: Automated exposure control, adjustment of the mA and/or kV according to patient size, and/or use of iterative reconstruction technique. FINDINGS: PULMONARY ARTERIES: Unremarkable. No pulmonary embolism. AORTA: No acute findings. No thoracic aortic aneurysm. Common origin of the brachiocephalic and left common carotid arteries. LUNGS: Multifocal infiltrates in bilateral upper lobe distribution, left greater than right. This is similar to the prior examination, but less extensive. Previously questioned small cavitary mass in the superior segment of the left lower lobe has improved in appearance with residual nodular infiltrates remaining in this region. PLEURAL SPACES: Unremarkable. No effusion or pneumothorax. HEART: Unremarkable. No cardiomegaly. No significant pericardial effusion. LYMPH NODES: No lymphadenopathy. BONES, CHEST WALL: Unremarkable. No fracture or destructive lesion OTHER FINDINGS: Scattered hepatic hypodensities. IMPRESSION: Unremarkable CT pulmonary angiogram. No pulmonary embolus. Interval improvement with residual bilateral multifocal infiltrates as described above, likely infectious/inflammatory in etiology. Scattered nonspecific sub centimeter hepatic hypodensities. 1340 Discussed with Britni who will be on consult. Admission criteria. Chest pain with BRIAN score intermediate and positive troponins. Evidence of ACS requiring admission for cardiac monitoring and medical treatment inpatient due to high risk of mortality and morbidity. Scribe Attestation: Documented by Rowan Dennis, acting as a scribe for Isrrael Nettles MD Provider Scribe Attestation: All medical record entries made by the Scribe were at my direction and personally dictated by me. I have reviewed the chart and agree that the record accurately reflects my personal performance of the history, physical exam, medical decision making, and the department course for this patient. I have also personally directed, reviewed, and agree with the discharge instructions and disposition. Disposition - Clinical Impression Clinical Impression: Non-ST elevation KS (NSTEMI), COPD (chronic obstructive pulmonary disease), Elevated troponin - Patient ED Disposition Is Patient to be Admitted: Yes Discussed With DrPaige: Vandana Vidales Doctor Will See Patient In The: ED Counseled Patient/Family Regarding: Studies Performed, Diagnosis - Disposition Disposition Time: 13:50 Condition: FAIR - Pt Status Changed To: Hospital Disposition Of: Inpatient - Admit Certification Admit to Inpatient:: After my assessment, the patient will require hospitalization for at least two midnights. This is because of the severity of symptoms shown, intensity of services needed, and/or the medical risk in this patient being treated as an outpatient. - POA Present On Arrival: None BRIAN Risk Score for UA/NSTEMI - BRIAN Risk Score Age > 64: NO 3 or more CAD Risk Factors: NO Known CAD (Stenosis greater than 50%): NO Aspirin use in past 7 days: NO Severe Angina: NO EKG ST changes greater than 0.5mm: NO Positive Cardiac Marker: YES BRIAN Score: 1 % risk at 14 days of: all cause mortality, new or recurrent KS, or severe recurrent ischemia requiring urgen revascularization: 5%
--- NOTE | 2018-02-09 11:07 | RAD ---
HISTORY: dyspnea COMPARISON: Chest radiograph dated 01/26/2018. TECHNIQUE: Chest PA and lateral FINDINGS: LUNGS: Stable left basilar scarring. No active pulmonary disease. PLEURA: No significant pleural effusion identified. No pneumothorax apparent. CARDIOVASCULAR: Normal. OSSEOUS STRUCTURES: Unchanged. VISUALIZED UPPER ABDOMEN: Normal. OTHER FINDINGS: None. IMPRESSION: No active disease.
[2018-02-09 11:11] LABS: ABG ALLEN TEST YES; ARTERIAL BLOOD GAS HCO3 26.4 mmol/L (21-28); ARTERIAL BLOOD GAS HEMOGLOBIN 14.1 g/dL (11.7-17.4); ARTERIAL BLOOD GAS O2 CAPACITY 18.8 mL/dL (16-24); ARTERIAL BLOOD GAS O2 CONTENT 18.8 ML/dL (15-23); ARTERIAL BLOOD GAS O2 SAT 99.8 % (95-98); ARTERIAL BLOOD GAS PCO2 40 mm/Hg (35-45); ARTERIAL BLOOD GAS PH 7.43 (7.35-7.45); ARTERIAL BLOOD GAS PO2 99 mm/Hg (80-100); ARTERIAL BLOOD GAS TCO2 27.7 mmol/L (22-28)
[2018-02-09 11:15] LABS: BASO # 0.1 K/uL (0.0-0.2); BASO % 0.7 % (0.0-2.0); EOS # 4.6 K/uL (0.0-0.7); EOS % 26.9 % (0.0-4.0); HEMOGLOBIN 13.8 g/dL (12.0-18.0); LYMPH # 1.2 K/uL (1.0-4.3); LYMPH % 6.7 % (20.0-40.0); MEAN CELL VOLUME 89.4 fl (80.0-94.0); MEAN CORPUSCULAR HEMOGLOBIN 29.6 pg (27.0-31.0); MEAN CORPUSCULAR HGB CONC 33.1 g/dL (33.0-37.0); MEAN PLATELET VOLUME 8.2 fl (7.2-11.7); MONO # 0.7 K/uL (0.0-0.8); MONO % 3.8 % (0.0-10.0); NEUT # 10.7 K/uL (1.8-7.0); NEUT % 61.9 % (50.0-75.0); PLATELET COUNT 257 K/uL (130-400); RBC 4.65 Mil/uL (4.40-5.90); RED CELL DISTRIBUTION WIDTH 15.9 % (11.5-14.5); WHITE BLOOD COUNT 17.2 K/uL (4.8-10.8)
[2018-02-09 11:47] LABS: BLOOD UREA NITROGEN 19 mg/dl (9-20); CALCIUM 9.2 mg/dL (8.4-10.2); GFR AFRICAN-AMERICAN > 60; GFR NON-AFRICAN AMERICAN > 60
[2018-02-09 12:04] LABS: B-TYPE NATRIURETIC PEPTIDE 4180 pg/ml (0-450)
[2018-02-09] MEDS ORDERED: Iodixanol 320 MG/ML 100 ML BOTTLE IV ONE (12:24)
[2018-02-09] MEDS ORDERED: Sodium Chloride 0.9% 50 ML IV ONE (12:24)
[2018-02-09 12:47] LABS: ANISOCYTOSIS SLIGHT; BANDS 1 % (0-2); EOSINOPHIL 25 % (0-7); LYMPHOCYTE 10 % (20-50); MONOCYTE 3 % (0-10); NEUTROPHIL 61 % (42-75); PLATELET ESTIMATE NORMAL (NORMAL); TOTAL CELLS COUNTED 100
--- NOTE | 2018-02-09 13:11 | CT ---
PROCEDURE: CT Chest with contrast (Pulmonary Angiogram) HISTORY: chest pain COMPARISON: CT chest dated 12/17/2017. TECHNIQUE: Axial computed tomography images were obtained of the chest in the pulmonary arterial phase of enhancement. Coronal and sagittal reformatted images were created and reviewed. Intravenous contrast dose: 90 mL Visipaque 320 Radiation dose: Total exam DLP = 298 mGy-cm. This CT exam was performed using one or more of the following dose reduction techniques: Automated exposure control, adjustment of the mA and/or kV according to patient size, and/or use of iterative reconstruction technique. FINDINGS: PULMONARY ARTERIES: Unremarkable. No pulmonary embolism. AORTA: No acute findings. No thoracic aortic aneurysm. Common origin of the brachiocephalic and left common carotid arteries. LUNGS: Multifocal infiltrates in bilateral upper lobe distribution, left greater than right. This is similar to the prior examination, but less extensive. Previously questioned small cavitary mass in the superior segment of the left lower lobe has improved in appearance with residual nodular infiltrates remaining in this region. PLEURAL SPACES: Unremarkable. No effusion or pneumothorax. HEART: Unremarkable. No cardiomegaly. No significant pericardial effusion. LYMPH NODES: No lymphadenopathy. BONES, CHEST WALL: Unremarkable. No fracture or destructive lesion OTHER FINDINGS: Scattered hepatic hypodensities. IMPRESSION: Unremarkable CT pulmonary angiogram. No pulmonary embolus. Interval improvement with residual bilateral multifocal infiltrates as described above, likely infectious/inflammatory in etiology. Scattered nonspecific sub centimeter hepatic hypodensities.
[2018-02-09] MEDS ORDERED: Albuterol 0.083% Inhal Sol (2.5 mg/3 mL) UD INH STA (13:51)
[2018-02-09] MEDS ORDERED: Albuterol 0.083% Inhal Sol (2.5 mg/3 mL) UD IH PRN (13:58)
[2018-02-09] MEDS ORDERED: Albuterol 0.083% Inhal Sol (2.5 mg/3 mL) UD ONE (14:00)
[2018-02-09] MEDS ORDERED: levoFLOXacin 500 mg in D5W 500 MG/100 ML BAG IVPB STA (14:02)
[2018-02-09] MEDS ORDERED: levoFLOXacin 500 mg in D5W 500 MG/100 ML BAG IVPB ONE (14:49)
[2018-02-09] MEDS ORDERED: Alum-Mag Hydrox-Simethicone Susp (30 mL) PO PRN (16:08)
[2018-02-09] MEDS ORDERED: Alum-Mag Hydrox-Simethicone Susp (30 mL) PO ONE (16:31)
--- NOTE | 2018-02-09 16:42 | CP.PCM.HP ---
History of Present Illness - History of Present Illness History of Present Illness: 42 y/o male with PMH of severe persistent asthma, gastritis, pancreatitis, vitiligo, NSTEMI and multifocal pneumonia admitted to [facility] for evaluation and treatment of worsening dyspnea. Patient is c/o 3 days history of progressive worsening dyspnea on asthma medications (Albuterol, Cimbicort and chronic steroid use). Dyspnea gets worse on exertion. Patient reports dyspnea associated with b/l shoulder pain, chest tightness and anxiety. Denies any cough , f/c/n/v, blurred vision, dizziness, or urinary symptoms. Patient denies any previous intubations due to dyspnea but reports he was told he might have churg cristopher. Patient has appt with Pulmonary doc, Dr. Aparicio next week (last visit 4 weeks ago). Patient also has Appt with GI, Dr. Heart next week. ( present with patient, most hx collected from ) Last [facility] discharge 12/18/17: patient was instructed to do bronch and PET scan to eval for cancer and advised to do nasal bx for elevated EOS (Dr. aparicio was notified who is his pulmonary) PMD: [facility] PMH: asthma, gastritis, vitiligo, pancreatitis, NSTEMI and multifocal pneumonia PSH: Thermoplasty 4 times procedures, last one on november 2017. Cardic cath november 2017 at [facility] Allg: NKDA, reports; pollen allergy Meds: Albuterol, Nebulizer, Cimbicort, steroids, Omeprazole and tramadol SH: Patient reports social alcohol use, denies smoking or illicit drug use ( Urine drugs + for marijuana in past). Patient is unemployed, lives with and 2 daughters FH: Father, alive, hx of asthma and hypercholesterolemia. Mother, alive, hx of trigeminal neuralgia. ER Course: Afebrile, HR 106, RR 18, Spo2 98% RA, BP 113/77 ABG- no co2 retention EKG- NSR, Possible inferior infract, age undetermined BNP- 4180 Troponin- 0.85 CBC- 17.2<13.8/41.5>257 CMP- unremarkable D-dimer- 827 CXR- No active disease Chest CT:Unremarkable CT pulmonary angiogram. No pulmonary embolus. Interval improvement with residual bilateral multifocal infiltrates as described above, likely infectious/inflammatory in etiology. Scattered nonspecific sub centimeter hepatic hypodensities. S/p Ativan, Duoneb, Solumedrol, Levofloxacin, Aspirin, NG, and Tramadol Present on Admission - Present on Admission Any Indicators Present on Admission: No History of DVT/PE: No History of Uncontrolled Diabetes: No Urinary Catheter: No Decubitus Ulcer Present: No Past Patient History - Infectious Disease Hx of Infectious Diseases: None - Past Medical History & Family History Past Medical History?: Yes - Past Social History Smoking Status: Never Smoked - CARDIAC Hx Cardiac Disorders: No - PULMONARY Hx Asthma: Yes Hx Chronic Obstructive Pulmonary Disease (COPD): Yes Hx Pneumonia: Yes - NEUROLOGICAL Hx Neurological Disorder: No - HEENT Hx HEENT Problems: No - RENAL Hx Chronic Kidney Disease: No - ENDOCRINE/METABOLIC Hx Endocrine Disorders: No - HEMATOLOGICAL/ONCOLOGICAL Hx Human Immunodeficiency Virus (HIV): No - INTEGUMENTARY Hx Dermatological Problems: No - MUSCULOSKELETAL/RHEUMATOLOGICAL Hx Musculoskeletal Disorders: No Hx Falls: No - GASTROINTESTINAL Hx Gastritis: Yes Hx Pancreatitis: Yes - GENITOURINARY/GYNECOLOGICAL Hx Genitourinary Disorders: No - PSYCHIATRIC Hx Psychophysiologic Disorder: No Hx Substance Use: No - SURGICAL HISTORY Hx Surgeries: Yes Other/Comment: leg surgery x2, right leg abscess removal - ANESTHESIA Hx Anesthesia: Yes Hx Anesthesia Reactions: No Meds Allergies/Adverse Reactions: Allergies Allergy/AdvReac Type Severity Reaction Status Date / Time No Known Allergies Allergy Verified 02/09/18 10:02 Physical Exam - Constitutional Appears: No Acute Distress - Head Exam Head Exam: NORMAL INSPECTION - Eye Exam Eye Exam: Normal appearance - ENT Exam ENT Exam: Mucous Membranes Moist - Neck Exam Neck exam: Positive for: Normal Inspection - Respiratory Exam Respiratory Exam: Decreased Breath Sounds (mildly on left ). absent: Chest Wall Tenderness, Respiratory Distress - Cardiovascular Exam Cardiovascular Exam: REGULAR RHYTHM - GI/Abdominal Exam GI & Abdominal Exam: Normal Bowel Sounds, Soft. absent: Tenderness - Back Exam Back exam: NORMAL INSPECTION. absent: CVA tenderness (L), CVA tenderness (R) - Neurological Exam Neurological exam: Alert, CN II-XII Intact, Oriented x3 - Psychiatric Exam Psychiatric exam: Anxious - Skin Skin Exam: Dry (vitiligo skin color change), Intact, Warm Results - Vital Signs Recent Vital Signs: Last Vital Signs Temp 97.3 F L 02/09/18 10:02 Pulse 106 H 02/09/18 15:37 Resp 18 06/05/18 12:51 BP 113/77 02/09/18 12:51 Pulse Ox 98 02/09/18 15:37 - Labs Result Diagrams: 02/09/18 11:00 02/09/18 10:36 Labs: Laboratory Results - last 24 hr 02/09/18 02/09/18 02/09/18 10:36 10:36 10:36 WBC RBC Hgb Hct MCV MCH MCHC RDW Plt Count MPV Neut % (Auto) Lymph % (Auto) [place] % (Auto) Eos % (Auto) Baso % (Auto) Neut # (Auto) Lymph # (Auto) [place] # (Auto) Eos # (Auto) Baso # (Auto) Neutrophils % (Manual) Band Neutrophils % Lymphocytes % (Manual) Monocytes % (Manual) Eosinophils % (Manual) Platelet Estimate Anisocytosis (manual) D-Dimer, Quantitative 827 H pCO2 40 pO2 99 HCO3 26.4 ABG pH 7.43 ABG Total CO2 27.7 ABG O2 Saturation 99.8 H ABG O2 Content 18.8 ABG Base Excess 2.0 ABG Hemoglobin 14.1 ABG Carboxyhemoglobin 2.6 H POC ABG HHb (Measured) 0.2 ABG Methemoglobin 2.9 ABG O2 Capacity 18.8 Stewart Test Yes A-a O2 Difference 65.0 Hgb O2 Saturation 94.4 L FiO2 30.0 Blood Gas Comments 2l/m nc,rr Crit Value Read Back y Sodium 141 Potassium 4.4 Chloride 101 Carbon Dioxide 29 Anion Gap 15 BUN 19 Creatinine 1.3 Est GFR ( Amer) > 60 Est GFR (Non-Af Amer) > 60 Random Glucose 108 Calcium 9.2 Troponin I 0.8590 H* NT-Pro-B Natriuret Pep 4180 H 02/09/18 11:00 WBC 17.2 H RBC 4.65 Hgb 13.8 Hct 41.5 MCV 89.4 MCH 29.6 MCHC 33.1 RDW 15.9 H Plt Count 257 MPV 8.2 Neut % (Auto) 61.9 Lymph % (Auto) 6.7 L [place] % (Auto) 3.8 Eos % (Auto) 26.9 H Baso % (Auto) 0.7 Neut # (Auto) 10.7 H Lymph # (Auto) 1.2 [place] # (Auto) 0.7 Eos # (Auto) 4.6 H Baso # (Auto) 0.1 Neutrophils % (Manual) 61 Band Neutrophils % 1 Lymphocytes % (Manual) 10 L Monocytes % (Manual) 3 Eosinophils % (Manual) 25 H Platelet Estimate Normal Anisocytosis (manual) Slight D-Dimer, Quantitative pCO2 pO2 HCO3 ABG pH ABG Total CO2 ABG O2 Saturation ABG O2 Content ABG Base Excess ABG Hemoglobin ABG Carboxyhemoglobin POC ABG HHb (Measured) ABG Methemoglobin ABG O2 Capacity Stewart Test A-a O2 Difference Hgb O2 Saturation FiO2 Blood Gas Comments Crit Value Read Back Sodium Potassium Chloride Carbon Dioxide Anion Gap BUN Creatinine Est GFR ( Amer) Est GFR (Non-Af Amer) Random Glucose Calcium Troponin I NT-Pro-B Natriuret Pep Assessment & Plan - Assessment and Plan (Free Text) Assessment: 42 y/o male with PMH of severe persistent asthma, gastritis, pancreatitis, vitiligo, NSTEMI and multifocal pneumonia admitted to [facility] for evaluation and treatment of worsening dyspnea/asthma exacerbation. Severe Persistent asthma with acute exacerbation - Afebrile, Spo2 95% RA, HR 104 - Hx of Thermoplasty, 4 times procedures, last one on november 2017 - CXR: No active disease - Chest CT:Unremarkable CT pulmonary angiogram. No pulmonary embolus. Interval improvement with residual bilateral multifocal infiltrates as described above, likely infectious/inflammatory in etiology. Scattered nonspecific sub centimeter hepatic hypodensities - S/p Ativan, Duoneb, Solumedrol, Levofloxacin in ER - C/w Advir, Duoneb, Prednisone 40mg PO daily - Consider pulmonary consult HCAP - WBC 17.2 - Hx of multifocal pnumonia - Hx of PPI use - CXR: No active disease - Chest CT:Unremarkable CT pulmonary angiogram. No pulmonary embolus. Interval improvement with residual bilateral multifocal infiltrates as described above, likely infectious/inflammatory in etiology. Scattered nonspecific sub centimeter hepatic hypodensities - S/p 1 dose of Levofloxacin - C/w Levofloxacin daily - Repeat CBC and monitor for fever History of systolic heart failure - pro- BNP: 4180 (02/09/18) - Echo: 12/23: EF 35-40%, mild to moderate MR, IVC is dilated, generalized moderate hypokinesia. - Cardiac Cath: 2018 at [place]: Normal - EK/5: NSR, Possible inferior infract, age undetermined - Elevated troponine - Chronic - Troponine 0.8590 - Possibly due to Thermoplasty; Hx of Thermoplasty, 4 times procedures, last one on november 2017 - EK/5: NSR, Possible inferior infract, age undetermined - Echo: 12/23: EF 35-40%, mild to moderate MR, IVC is dilated, generalized moderate hypokinesia. - Cardiac Cath: 2018 at [place]: Normal - F/u repeat troponine Elevated D-dimer, unknown etiology - D-dimer 827 - Possiblly related to vasculitis - CXR: No active disease - Chest CT:Unremarkable CT pulmonary angiogram. No pulmonary embolus. Interval improvement with residual bilateral multifocal infiltrates as described above, likely infectious/inflammatory in etiology. Scattered nonspecific sub centimeter hepatic hypodensities Eosinophilia - EOS 26.9 - DDx Churg Cristopher vs BOOP - Consider pulmonary consult Gastritis - Protonix 20mg PO daily Drug seeking behavior - Repeatedly asking for drugs to calm him down - Denies use of illicit drug - Previous visits: [facility] drug + for Marijuana - Follow up urine drug screen DVT Prophylaxis - Lovenox 40mg daily
--- NOTE | 2018-02-09 17:50 | CP.PCM.CON ---
History of Present Illness - History of Present Illness History of Present Illness: 41 year old male with a history of asthma and COPD presents to the ED with complaining of difficulty breathing Pt denies chest pain / prioir NC / palpitations Breathing earlier today Cardiology called to evaluate elevated Troponin @ 0.8590 Pt has Hx of persistent Troponin elevation 1.4100 0n 12/13/2017 [id number] Cardiac Cath @ [facility] : normal PMH: Pancreatitis Pneumonia Cardiac Cath 12/23 Past Patient History - Infectious Disease Hx of Infectious Diseases: None - Past Medical History & Family History Past Medical History?: Yes - Past Social History Smoking Status: Never Smoked - CARDIAC Hx Cardiac Disorders: No - PULMONARY Hx Asthma: Yes Hx Chronic Obstructive Pulmonary Disease (COPD): Yes Hx Pneumonia: Yes - NEUROLOGICAL Hx Neurological Disorder: No - HEENT Hx HEENT Problems: No - RENAL Hx Chronic Kidney Disease: No - ENDOCRINE/METABOLIC Hx Endocrine Disorders: No - HEMATOLOGICAL/ONCOLOGICAL Hx Human Immunodeficiency Virus (HIV): No - INTEGUMENTARY Hx Dermatological Problems: No - MUSCULOSKELETAL/RHEUMATOLOGICAL Hx Musculoskeletal Disorders: No Hx Falls: No - GASTROINTESTINAL Hx Gastritis: Yes Hx Pancreatitis: Yes - GENITOURINARY/GYNECOLOGICAL Hx Genitourinary Disorders: No - PSYCHIATRIC Hx Psychophysiologic Disorder: No Hx Substance Use: No - SURGICAL HISTORY Hx Surgeries: Yes Other/Comment: leg surgery x2, right leg abscess removal - ANESTHESIA Hx Anesthesia: Yes Hx Anesthesia Reactions: No Meds Allergies/Adverse Reactions: Allergies Allergy/AdvReac Type Severity Reaction Status Date / Time No Known Allergies Allergy Verified 02/09/18 10:02 - Medications Medications: Current Medications Al Hydrox/Mg Hydrox/Simethicone (Maalox Plus 30 Ml) 30 ml PO Q6 PRN PRN Reason: Indigestion / Heartburn Albuterol/Ipratropium (Duoneb 3 Mg/0.5 Mg (3 Ml) Ud) 3 ml INH RQ6 DARIEL Enoxaparin Sodium (Lovenox) 40 mg SC DAILY DARIEL PRN Reason: Protocol Levofloxacin/Dextrose (Levaquin 250mg) 250 mg in 50 mls @ 50 mls/hr IVPB DAILY DARIEL PRN Reason: Protocol Pantoprazole Sodium (Protonix Ec Tab) 20 mg PO DAILY DARIEL Prednisone (Prednisone Tab) 40 mg PO DAILY DARIEL Fluticasone/Salmeterol (Advair Diskus 500/50) 1 puff IH Q12 DARIEL Tramadol HCl (Ultram) 50 mg PO Q6 PRN PRN Reason: Pain, severe (8-10) Physical Exam - Constitutional Appears: Well - Head Exam Head Exam: ATRAUMATIC - Eye Exam Eye Exam: Normal appearance - ENT Exam ENT Exam: Normal Exam - Neck Exam Neck exam: Positive for: Normal Inspection - Respiratory Exam Respiratory Exam: NORMAL BREATHING PATTERN - Cardiovascular Exam Cardiovascular Exam: REGULAR RHYTHM Results - Vital Signs Recent Vital Signs: Last Vital Signs Temp 97.7 F 02/09/18 16:36 Pulse 109 H 02/09/18 16:42 Resp 16 02/09/18 16:42 BP 104/75 02/09/18 16:36 Pulse Ox 95 02/09/18 16:36 - Labs Result Diagrams: 02/10/18 04:20 02/10/18 02:51 Labs: Laboratory Results - last 24 hr 02/09/18 02/09/18 02/09/18 10:36 10:36 10:36 WBC RBC Hgb Hct MCV MCH MCHC RDW Plt Count MPV Neut % (Auto) Lymph % (Auto) [place] % (Auto) Eos % (Auto) Baso % (Auto) Neut # (Auto) Lymph # (Auto) [place] # (Auto) Eos # (Auto) Baso # (Auto) Neutrophils % (Manual) Band Neutrophils % Lymphocytes % (Manual) Monocytes % (Manual) Eosinophils % (Manual) Platelet Estimate Anisocytosis (manual) D-Dimer, Quantitative 827 H pCO2 40 pO2 99 HCO3 26.4 ABG pH 7.43 ABG Total CO2 27.7 ABG O2 Saturation 99.8 H ABG O2 Content 18.8 ABG Base Excess 2.0 ABG Hemoglobin 14.1 ABG Carboxyhemoglobin 2.6 H POC ABG HHb (Measured) 0.2 ABG Methemoglobin 2.9 ABG O2 Capacity 18.8 Stewart Test Yes A-a O2 Difference 65.0 Hgb O2 Saturation 94.4 L FiO2 30.0 Blood Gas Comments 2l/m nc,rr Crit Value Read Back y Sodium 141 Potassium 4.4 Chloride 101 Carbon Dioxide 29 Anion Gap 15 BUN 19 Creatinine 1.3 Est GFR ( Amer) > 60 Est GFR (Non-Af Amer) > 60 Random Glucose 108 Calcium 9.2 Troponin I 0.8590 H* NT-Pro-B Natriuret Pep 4180 H 02/09/18 11:00 WBC 17.2 H RBC 4.65 Hgb 13.8 Hct 41.5 MCV 89.4 MCH 29.6 MCHC 33.1 RDW 15.9 H Plt Count 257 MPV 8.2 Neut % (Auto) 61.9 Lymph % (Auto) 6.7 L [place] % (Auto) 3.8 Eos % (Auto) 26.9 H Baso % (Auto) 0.7 Neut # (Auto) 10.7 H Lymph # (Auto) 1.2 [place] # (Auto) 0.7 Eos # (Auto) 4.6 H Baso # (Auto) 0.1 Neutrophils % (Manual) 61 Band Neutrophils % 1 Lymphocytes % (Manual) 10 L Monocytes % (Manual) 3 Eosinophils % (Manual) 25 H Platelet Estimate Normal Anisocytosis (manual) Slight D-Dimer, Quantitative pCO2 pO2 HCO3 ABG pH ABG Total CO2 ABG O2 Saturation ABG O2 Content ABG Base Excess ABG Hemoglobin ABG Carboxyhemoglobin POC ABG HHb (Measured) ABG Methemoglobin ABG O2 Capacity Stewart Test A-a O2 Difference Hgb O2 Saturation FiO2 Blood Gas Comments Crit Value Read Back Sodium Potassium Chloride Carbon Dioxide Anion Gap BUN Creatinine Est GFR ( Amer) Est GFR (Non-Af Amer) Random Glucose Calcium Troponin I NT-Pro-B Natriuret Pep Assessment & Plan (1) Elevated troponin Assessment and Plan: The persistently elevated Troponins are most likely secondary to the multitude of medical problems not cardiac in origin Cardiac Cath normal Pt is cleared for D/C Status: Acute (2) COPD (chronic obstructive pulmonary disease) Status: Acute (3) ARF (acute renal failure) Status: Acute (4) Asthma Status: Acute (5) Elevated liver enzymes Status: Acute (6) Pancreatitis Status: Acute Priority: High (7) Pneumonia Status: Acute Priority: High
[2018-02-09] MEDS: Albuterol-Ipratrop 3 mg / 0.5 (3 ml) UD INH SCH ×2 (19:45→19:46)
[2018-02-09] MEDS: Fluticasone-Salmeterol 500-50mcg Diskus IH SCH (21:38)
[2018-02-10] MEDS: Albuterol-Ipratrop 3 mg / 0.5 (3 ml) UD INH SCH ×4 (01:10→19:04)
[2018-02-10 05:59] LABS: HEMOGLOBIN 13.2 g/dL (12.0-18.0); MEAN CELL VOLUME 89.8 fl (80.0-94.0); MEAN CORPUSCULAR HEMOGLOBIN 29.8 pg (27.0-31.0); MEAN CORPUSCULAR HGB CONC 33.2 g/dL (33.0-37.0); RBC 4.42 Mil/uL (4.40-5.90); RED CELL DISTRIBUTION WIDTH 15.3 % (11.5-14.5); WHITE BLOOD COUNT 16.1 K/uL (4.8-10.8)
[2018-02-10 07:43] LABS: BLOOD UREA NITROGEN 26 mg/dl (9-20); GFR AFRICAN-AMERICAN > 60; GFR NON-AFRICAN AMERICAN > 60
[2018-02-10 07:44] LABS: CALCIUM 9.1 mg/dL (8.4-10.2)
[2018-02-10] MEDS: Enoxaparin 40 mg Syringe SC SCH ×2 (09:13→11:37)
[2018-02-10] MEDS: Pantoprazole 20 mg EC Tab PO SCH ×2 (09:13→11:38)
[2018-02-10] MEDS: Fluticasone-Salmeterol 500-50mcg Diskus IH SCH ×3 (09:14→21:56)
[2018-02-10] MEDS: levoFLOXacin 250 mg in D5W 250 MG/50 ML BAG IVPB SCH ×2 (09:14→11:36)
--- NOTE | 2018-02-10 11:29 | CP.PCM.PN ---
Subjective - Date & Time of Evaluation Date of Evaluation: 02/10/18 Time of Evaluation: 07:40 - Subjective Subjective: Patient was seen and examined this morning. NAD, no acute event overnight. Patient denies any SOB this morning, states he got better after steroids, and denies any SOB with ambulation. Patient denies any cheat pain, shoulder pain, dizziness, f/c/n/c, abdominal pain or urinary symptoms. Objective - Vital Signs/Intake and Output Vital Signs (last 24 hours): Temp Pulse Resp BP Pulse Ox 97.6 F 96 H 20 106/75 95 02/10/18 08:00 02/10/18 08:00 02/10/18 08:00 02/10/18 08:00 02/10/18 08:00 - Medications Medications: Current Medications Al Hydrox/Mg Hydrox/Simethicone (Maalox Plus 30 Ml) 30 ml PO Q6 PRN PRN Reason: Indigestion / Heartburn Albuterol/Ipratropium (Duoneb 3 Mg/0.5 Mg (3 Ml) Ud) 3 ml INH RQ6 DARIEL Last Admin: 02/10/18 07:57 Dose: 3 ml Enoxaparin Sodium (Lovenox) 40 mg SC DAILY DARIEL PRN Reason: Protocol Last Admin: 02/10/18 09:13 Dose: 40 mg Levofloxacin/Dextrose (Levaquin 250mg) 250 mg in 50 mls @ 50 mls/hr IVPB DAILY DARIEL PRN Reason: Protocol Last Admin: 02/10/18 09:14 Dose: 50 mls/hr Pantoprazole Sodium (Protonix Ec Tab) 20 mg PO DAILY [facility] Last Admin: 02/10/18 09:13 Dose: 20 mg Prednisone (Prednisone Tab) 40 mg PO DAILY DARIEL Last Admin: 02/10/18 09:14 Dose: 40 mg Fluticasone/Salmeterol (Advair Diskus 500/50) 1 puff IH Q12 DARIEL Last Admin: 02/10/18 09:14 Dose: 1 puff Tramadol HCl (Ultram) 50 mg PO Q6 PRN PRN Reason: Pain, severe (8-10) Last Admin: 02/09/18 21:37 Dose: 50 mg - Labs Labs: 02/10/18 04:20 02/10/18 02:51 - Constitutional Appears: No Acute Distress - Head Exam Head Exam: NORMAL INSPECTION - Eye Exam Eye Exam: Normal appearance - ENT Exam ENT Exam: Mucous Membranes Moist - Neck Exam Neck Exam: Normal Inspection - Respiratory Exam Respiratory Exam: Decreased Breath Sounds (mild), Clear to Ausculation Bilateral. absent: Wheezes, Respiratory Distress - Cardiovascular Exam Cardiovascular Exam: REGULAR RHYTHM - GI/Abdominal Exam GI & Abdominal Exam: Soft, Normal Bowel Sounds - Extremities Exam Extremities Exam: Full ROM, Normal Capillary Refill, Normal Inspection - Back Exam Back Exam: NORMAL INSPECTION - Neurological Exam Neurological Exam: Alert, Awake, Oriented x3 - Skin Skin Exam: Normal Color Assessment and Plan - Assessment and Plan (Free Text) Assessment: 42 y/o male with PMH of severe persistent asthma, gastritis, pancreatitis, vitiligo, NSTEMI and multifocal pneumonia admitted to [facility] for evaluation and treatment of worsening dyspnea/asthma exacerbation. Severe Persistent asthma with acute exacerbation - Afebrile, Spo2 95% RA, HR 104 on admission - Hx of Thermoplasty, 4 times procedures, last one on november 2017 - CXR: No active disease - Chest CT:Unremarkable CT pulmonary angiogram. No pulmonary embolus. Interval improvement with residual bilateral multifocal infiltrates as described above, likely infectious/inflammatory in etiology. Scattered nonspecific sub centimeter hepatic hypodensities - S/p Ativan, Duoneb, Solumedrol, Levofloxacin in ER - C/w Advir, Duoneb, Prednisone 40mg PO daily - Consider pulmonary consult Community acquired pneumonia - WBC 17.2 on admission -WBC 16.1 today - Hx of multifocal pnumonia - Hx of PPI use - CXR: No active disease - Chest CT:Unremarkable CT pulmonary angiogram. No pulmonary embolus. Interval improvement with residual bilateral multifocal infiltrates as described above, likely infectious/inflammatory in etiology. Scattered nonspecific sub centimeter hepatic hypodensities - S/p 1 dose of Levofloxacin - C/w Levofloxacin IV History of systolic heart failure - pro- BNP: 4180 (02/09/18) - Echo: 12/23: EF 35-40%, mild to moderate MR, IVC is dilated, generalized moderate hypokinesia. - Cardiac Cath: 2018 at [facility]: Normal - EK/5: NSR, Possible inferior infract, age undetermined Elevated troponine - Chronic - Troponine 0.8590, 0.4800, 0.3710 - Possibly due to Thermoplasty; Hx of Thermoplasty, 4 times procedures, last one on november 2017 - EK/5: NSR, Possible inferior infract, age undetermined - Echo: 12/23: EF 35-40%, mild to moderate MR, IVC is dilated, generalized moderate hypokinesia. - Cardiac Cath: 2018 at [facility]: Normal - Cardio consult, Dr. Ryder appreciated - The persistently elevated Troponins are most likely secondary to the multitude of medical problems not cardiac in origin Elevated D-dimer, unknown etiology - D-dimer 827 - Possiblly related to vasculitis - CXR: No active disease - Chest CT:Unremarkable CT pulmonary angiogram. No pulmonary embolus. Interval improvement with residual bilateral multifocal infiltrates as described above, likely infectious/inflammatory in etiology. Scattered nonspecific sub centimeter hepatic hypodensities Eosinophilia - EOS 26.9 on admission - DDx Churg Cristopher vs BOOP - Consider pulmonary consult or outpatient follow up with his pulmonary after discharge Gastritis - Protonix 20mg PO daily Drug seeking behavior - Repeatedly asking for drugs to calm him down - Denies use of illicit drug - Previous visits: [facility] drug + for Marijuana - Follow up urine drug screen DVT Prophylaxis - Lovenox 40mg daily
--- NOTE | 2018-02-10 14:56 | PQF GENQUE ---
Dr. Vidales, 3 queries as follows: 1. NSTEMI ruled out? 2. Type of Community Acquired Pneumonia:if known: i.e. Bacterial, Viral etc. 3. Pancreatitis hx. only and not Acute? OR: Unable to determine OR: Other explanation of clinical finding ER MD: Clinical Impression: Non-ST elevation OK (NSTEMI), COPD (chronic obstructive pulmonary disease), Elevated troponin H and P: PMH: includes Pancreatittis Clinical Impression includes: Community acquired pneumonia - WBC 17.2 on admission -WBC 16.1 today - Hx of multifocal pnumonia - Hx of PPI use - CXR: No active disease - Chest CT:Unremarkable CT pulmonary angiogram. No pulmonary embolus. Interval improvement with residual bilateral multifocal infiltrates as described above, likely infectious/inflammatory in etiology. Scattered nonspecific sub centimeter hepatic hypodensities - S/p 1 dose of Levofloxacin - C/w Levofloxacin IV -Elevated troponine: The persistently elevated Troponins are most likely secondary to the multitude of medical problems not cardiac in origin / Cardiology consult: (1) Elevated troponin Assessment and Plan: The persistently elevated Troponins are most likely secondary to the multitude of medical problems not cardiac in origin Cardiac Cath normal -Pancreatiis: Acute This form is a permanent part of the medical record Clarification of your documentation is requested to better reflect the severity of illness and intensity of treatment of your patient. Indicators present [] Specify: [] [] Specify: [] [] Specify: [] [] Specify: [] Location in the medical record that reflects the above clinical findings: [] Treatment Provided: [] PHYSICIAN'S RESPONSE NSTEMI ruled out community acquired pancreatittis -hx of , not acute Based on your medical judgment of the clinical indicators outlined above please clarify the following: [] Practitioner response [] If unable to determine, please check the box, sign and date. Present On Admission (POA) Indicator: [] Present at the time of admission [] Not present at the time of admission [] Clinically Undetermined In responding to this query, please exercise your independent professional judgment. The fact that a question is asked does not imply that any particular answer is desired or expected. Thank you for your clarification on this documentation. If you have any questions please call. * Thank you, Claudia Ortega RN ext. #[phone] MTDD
[2018-02-10] MEDS ORDERED: Albuterol HFA 90 mcg/actuation (8 g) INH PRN (18:27)
[2018-02-10] MEDS ORDERED: Albuterol 0.083% Inhal Sol (2.5 mg/3 mL) UD INH STA (18:27)
[2018-02-10 19:00] LABS: OPIATES, UR NEGATIVE (NEGATIVE)
[2018-02-10 19:14] LABS: BARBITURATES, UR NEGATIVE (NEGATIVE); BENZODIAZEPINES, UR NEGATIVE (NEGATIVE); PHENCYCLIDINE, UR NEGATIVE (NEGATIVE)
[2018-02-11 00:10] VITALS: RESP 18
--- NOTE | 2018-02-11 00:16 | CON ---
DATE: 02/10/2018 REFERRING PHYSICIAN: Vandana Vidales MD REASON FOR CONSULTATION: Abdominal pain. HISTORY OF PRESENT ILLNESS: This is a 42-year-old male with a history of asthma, gastritis, hepatitis, vitiligo, ____, pneumonia, brought in with worsening dyspnea. He has basically had asthma exacerbation which had been treated. Basically, he has been complaining of GI upset and discomfort, which has been there on and off for some time, almost a year now. No reflux. No heartburn. No weight loss. Currently lying in bed comfortably and in no apparent distress. PAST MEDICAL HISTORY: As above. PAST SURGICAL HISTORY: As above. MEDICATIONS: Have been reviewed. REVIEW OF SYSTEMS: All other systems have been reviewed and negative apart from the HPI. PHYSICAL EXAMINATION: VITAL SIGNS: Here in the hospital are grossly unremarkable. GENERAL: A pleasant middle-aged man, lying in bed comfortably, in no apparent distress. HEENT: Head is normocephalic and atraumatic. Eyes; pupils are equally reactive to light bilaterally. NECK: Supple. Normal range of motion. No lymphadenopathy appreciated. LUNGS: Coarse breath sounds bilaterally. HEART: S1 and S2, regular rate and rhythm. No murmurs appreciated. ABDOMEN: Soft and nontender. Bowel sounds are present. No rebound. No guarding. EXTREMITIES: Pulses felt bilaterally. SKIN: Warm, dry and intact. NEUROLOGIC: A and O x3. LABORATORY DATA: Labs and radiology have been reviewed. WBC 16.1, hemoglobin 13.2. D-dimer is 827. Troponins are 0.48 and 0.37. ProBNP is 4100. ASSESSMENT AND PLAN: This is a 42-year-old man with asthma exacerbation. From a gastroenterology standpoint, the abdominal pain is chronic. Given the urgency of other issues including the pulmonary issues and the possible congestive heart failure, I would defer any elective noninvasive procedure to the outpatient setting. He will definitely benefit with endoscopy at some point but for now PPI twice a day. Discharge plan when able. Thank you for the consult. Lane Cobian MD/ PhD
[2018-02-11] MEDS: Albuterol-Ipratrop 3 mg / 0.5 (3 ml) UD INH SCH ×3 (01:00→13:45)
--- NOTE | 2018-02-11 04:20 | CP.PCM.PCO ---
Physician Communication Note - Physician Communication Note Physician Communication Note: paged by nurse as another patient fell into patients bed Assessment/Plan - Assessment and Plan (Free Text) Assessment: Patient laying comfortably in bed, denies any injury or pain, reports another patient stumble into his bed but he was able to push him off without experiencing any injury. Exam: no upper or lower extremity evidence of injury, no deformity or tenderness to palpation, full ROM Plan: -No further intervention required at this time - Date & Time Date: 02/11/18 Time: 04:20
[2018-02-11 06:46] LABS: HEMOGLOBIN 13.6 g/dL (12.0-18.0); MEAN CELL VOLUME 89.8 fl (80.0-94.0); MEAN CORPUSCULAR HEMOGLOBIN 29.8 pg (27.0-31.0); MEAN CORPUSCULAR HGB CONC 33.2 g/dL (33.0-37.0); RBC 4.57 Mil/uL (4.40-5.90); RED CELL DISTRIBUTION WIDTH 15.8 % (11.5-14.5); WHITE BLOOD COUNT 18.9 K/uL (4.8-10.8)
[2018-02-11] MEDS: Pantoprazole 20 mg EC Tab PO SCH ×2 (07:04→08:35)
[2018-02-11 07:23] LABS: ALB/GLOB RATIO 0.8 (1.0-2.1); ALBUMIN 3.3 g/dL (3.5-5.0); ALT/SGPT 29 U/L (21-72); AST/SGOT 34 U/L (17-59); BLOOD UREA NITROGEN 27 mg/dl (9-20); CALCIUM 9.1 mg/dL (8.4-10.2); GFR AFRICAN-AMERICAN > 60; GFR NON-AFRICAN AMERICAN > 60
[2018-02-11] MEDS: Fluticasone-Salmeterol 500-50mcg Diskus IH SCH (08:35)
[2018-02-11] MEDS: levoFLOXacin 250 mg in D5W 250 MG/50 ML BAG IVPB SCH (08:35)
[2018-02-11] MEDS: Enoxaparin 40 mg Syringe SC SCH (08:35)
--- NOTE | 2018-02-11 10:02 | CP.PCM.DIS ---
Provider - Provider Date of Admission: 02/09/18 13:52 Attending physician: Vandana Vidales MD Primary care physician: [facility] Consults: Cardio, , Britni CORDERO, Dr. Cobian Time Spent in preparation of Discharge (in minutes): 40 Diagnosis - Discharge Diagnosis (1) Severe persistent asthma dependent on systemic steroids with acute exacerbation Status: Chronic (2) HCAP (healthcare-associated pneumonia) Status: Acute (3) CHF (congestive heart failure) Status: Chronic (4) Elevated troponin Status: Chronic (5) Elevated d-dimer Status: Chronic (6) Eosinophilia Status: Chronic (7) Gastritis Status: Chronic (8) Drug-seeking behavior Status: Chronic Hospital Course - Lab Results Lab Results: Most Recent Lab Values WBC 18.9 K/uL (4.8-10.8) H 02/11/18 06:44 RBC 4.57 Mil/uL (4.40-5.90) 02/11/18 06:44 Hgb 13.6 g/dL (12.0-18.0) 02/11/18 06:44 Hct 41.0 % (35.0-51.0) 02/11/18 06:44 MCV 89.8 fl (80.0-94.0) 02/11/18 06:44 MCH 29.8 pg (27.0-31.0) 02/11/18 06:44 MCHC 33.2 g/dL (33.0-37.0) 02/11/18 06:44 RDW 15.8 % (11.5-14.5) H 02/11/18 06:44 Plt Count 304 K/uL (130-400) 02/11/18 06:44 MPV 8.2 fl (7.2-11.7) 02/09/18 11:00 Neut % (Auto) 61.9 % (50.0-75.0) 02/09/18 11:00 Lymph % (Auto) 6.7 % (20.0-40.0) L 02/09/18 11:00 Sterling % (Auto) 3.8 % (0.0-10.0) 02/09/18 11:00 Eos % (Auto) 26.9 % (0.0-4.0) H 02/09/18 11:00 Baso % (Auto) 0.7 % (0.0-2.0) 02/09/18 11:00 Neut # (Auto) 10.7 K/uL (1.8-7.0) H 02/09/18 11:00 Lymph # (Auto) 1.2 K/uL (1.0-4.3) 02/09/18 11:00 Sterling # (Auto) 0.7 K/uL (0.0-0.8) 02/09/18 11:00 Eos # (Auto) 4.6 K/uL (0.0-0.7) H 02/09/18 11:00 Baso # (Auto) 0.1 K/uL (0.0-0.2) 02/09/18 11:00 Neutrophils % (Manual) 61 % (42-75) 02/09/18 11:00 Band Neutrophils % 1 % (0-2) 02/09/18 11:00 Lymphocytes % (Manual) 10 % (20-50) L 02/09/18 11:00 Monocytes % (Manual) 3 % (0-10) 02/09/18 11:00 Eosinophils % (Manual) 25 % (0-7) H 02/09/18 11:00 Platelet Estimate Normal (NORMAL) 02/09/18 11:00 Anisocytosis (manual) Slight 02/09/18 11:00 D-Dimer, Quantitative 827 ng/mlDDU (0-230) H 02/09/18 10:36 pCO2 40 mm/Hg (35-45) 02/09/18 10:36 pO2 99 mm/Hg (80-100) 02/09/18 10:36 HCO3 26.4 mmol/L (21-28) 02/09/18 10:36 ABG pH 7.43 (7.35-7.45) 02/09/18 10:36 ABG Total CO2 27.7 mmol/L (22-28) 02/09/18 10:36 ABG O2 Saturation 99.8 % (95-98) H 02/09/18 10:36 ABG O2 Content 18.8 ML/dL (15-23) 02/09/18 10:36 ABG Base Excess 2.0 mmol/L (-2.0-3.0) 02/09/18 10:36 ABG Hemoglobin 14.1 g/dL (11.7-17.4) 02/09/18 10:36 ABG Carboxyhemoglobin 2.6 % (0.5-1.5) H 02/09/18 10:36 POC ABG HHb (Measured) 0.2 % (0.0-5.0) 02/09/18 10:36 ABG Methemoglobin 2.9 % (0.0-3.0) 02/09/18 10:36 ABG O2 Capacity 18.8 mL/dL (16-24) 02/09/18 10:36 Stewart Test Yes 02/09/18 10:36 A-a O2 Difference 65.0 mm/Hg 02/09/18 10:36 Hgb O2 Saturation 94.4 % (95.0-98.0) L 02/09/18 10:36 FiO2 30.0 % 02/09/18 10:36 Blood Gas Comments 2l/m nc,rr 02/09/18 10:36 Crit Value Read Back y 02/09/18 10:36 Sodium 139 mmol/l (132-148) 02/11/18 04:00 Potassium 4.3 MMOL/L (3.6-5.0) 02/11/18 04:00 Chloride 100 mmol/L (98-107) 02/11/18 04:00 Carbon Dioxide 32 mmol/L (22-30) H 02/11/18 04:00 Anion Gap 11 (10-20) 02/11/18 04:00 BUN 27 mg/dl (9-20) H 02/11/18 04:00 Creatinine 1.2 mg/dl (0.8-1.5) 02/11/18 04:00 Est GFR ( Amer) > 60 02/11/18 04:00 Est GFR (Non-Af Amer) > 60 02/11/18 04:00 Random Glucose 86 mg/dL (75-110) 02/11/18 04:00 Calcium 9.1 mg/dL (8.4-10.2) 02/11/18 04:00 Total Bilirubin 0.3 mg/dl (0.2-1.3) 02/11/18 04:00 AST 34 U/L (17-59) 02/11/18 04:00 ALT 29 U/L (21-72) 02/11/18 04:00 Alkaline Phosphatase 178 U/L (38-126) H 02/11/18 04:00 Troponin I 0.3710 ng/mL (0.00-0.120) H* 02/10/18 02:51 NT-Pro-B Natriuret Pep 4180 pg/ml (0-450) H 02/09/18 10:36 Total Protein 7.3 G/DL (6.3-8.2) 02/11/18 04:00 Albumin 3.3 g/dL (3.5-5.0) L 02/11/18 04:00 Globulin 4.0 gm/dL (2.2-3.9) H 02/11/18 04:00 Albumin/Globulin Ratio 0.8 (1.0-2.1) L 02/11/18 04:00 Urine Opiates Screen Negative (NEGATIVE) 02/10/18 18:35 Urine Methadone Screen Negative (NEGATIVE) 02/10/18 18:35 Ur Barbiturates Screen Negative (NEGATIVE) 02/10/18 18:35 Ur Phencyclidine Scrn Negative (NEGATIVE) 02/10/18 18:35 Ur Amphetamines Screen Negative (NEGATIVE) 02/10/18 18:35 U Benzodiazepines Scrn Negative (NEGATIVE) 02/10/18 18:35 U Oth Cocaine Metabols Negative (NEGATIVE) 02/10/18 18:35 U Cannabinoids Screen Negative (NEGATIVE) 02/10/18 18:35 - Hospital Course Hospital Course: 42 y/o male with PMH of severe persistent asthma, gastritis, pancreatitis, vitiligo, NSTEMI and multifocal pneumonia admitted to [facility] for evaluation and treatment of worsening dyspnea. Patient was found to have elevated troponin ( Chronic), elevated d-dimer (Chronic),EKG- NSR, Possible inferior infract, age undetermined. CXR- No active disease.Chest CT:Unremarkable CT pulmonary angiogram. No pulmonary embolus, Interval improvement with residual bilateral multifocal infiltrates as described above, likely infectious/inflammatory in etiology, Scattered nonspecific sub centimeter hepatic hypodensities. Old recordes reviewed: Hx of Thermoplasty, 4 times procedures, last one on november 2017, Echo: 12/23: EF 35-40%, mild to moderate MR, IVC is dilated, generalized moderate hypokinesia. Cardiac Cath: 2018 at [place]: Normal. Cardiology, Dr. Ryder: The persistently elevated Troponin are most likely secondary to the multitude of medical problems not cardiac in origin. Patient received inpatient IV Solumedrol, and Levofloxacin. Patient improved significantly on discharge day. Patient discharged home today with tapering PO prednisone and Azithromycin 500mg PO for 5 days. Patient was instructed to follow up Pulm, GI, Cardio and ENT (Referrals given) for possible lung biopsy, PET, nasal biopsy (r/o churg rhys) and further management. Discharge Exam - Head Exam Head Exam: NORMAL INSPECTION - Eye Exam Eye Exam: Normal appearance - Respiratory Exam Respiratory Exam: Clear to PA & Lateral, NORMAL BREATHING PATTERN. absent: Accessory Muscle Use, Decreased Breath Sounds, Respiratory Distress - Cardiovascular Exam Cardiovascular Exam: REGULAR RHYTHM - GI/Abdominal Exam GI & Abdominal Exam: Normal Bowel Sounds - Extremities Exam Extremities exam: normal inspection Additional comments: vitiligo skin color change - Back Exam Back exam: absent: CVA tenderness (L), CVA tenderness (R) - Neurological Exam Neurological exam: Alert, Oriented x3 - Psychiatric Exam Psychiatric exam: Normal Affect - Skin Additional comments: vitiligo skin color change Discharge Plan - Discharge Medications Prescriptions: Aluminum Hydroxide/Magnesium [Maalox Plus 30 ml] 30 ml PO Q6 PRN #1 bottle PRN Reason: Indigestion / Heartburn Azithromycin 500 mg PO DAILY #5 tablet Prednisone 30 mg PO DAILY #14 tablet - Follow Up Plan Condition: FAIR Disposition: HOME/ ROUTINE Instructions: Acid Reflux (Gastroesophageal Reflux Disease), Adult (DC), Exacerbation of COPD (DC) Additional Instructions: follow up with your helmet coverer Dr. Gambino in 1 week as directed follow up appointment at [facility] february [address] Gutierres F/u with GI Dr Heart 02/12/18 . Referrals: [facility] [place] [Outside]
--- NOTE | 2018-02-11 11:12 | CP.PCM.PN ---
Subjective - Date & Time of Evaluation Date of Evaluation: 02/11/18 Time of Evaluation: 11:10 - Subjective Subjective: Gastroenterology Fellow/PGY5 Progress Note for Dr. Cobian Patient notes resolved abdominal pain due to tramadol use. Tolerating regular diet. Notes formed bowel movement yesterday. Admits to using his inhaler for shortness of breath and chest tightness due to asthma exacerbation that occurred shortly before rounds with attending. A 12-point review of systems negative except for as above. Objective - Vital Signs/Intake and Output Vital Signs (last 24 hours): Temp Pulse Resp BP Pulse Ox 97.7 F 90 18 109/77 96 02/11/18 08:19 02/11/18 09:00 02/11/18 08:19 02/11/18 08:19 02/11/18 08:19 - Medications Medications: Current Medications Al Hydrox/Mg Hydrox/Simethicone (Maalox Plus 30 Ml) 30 ml PO Q6 PRN PRN Reason: Indigestion / Heartburn Albuterol (Ventolin Hfa 90 Mcg/Actuation (8 G)) 2 puff INH RQ6 PRN PRN Reason: Shortness of Breath Albuterol/Ipratropium (Duoneb 3 Mg/0.5 Mg (3 Ml) Ud) 3 ml INH RQ6 [facility] Last Admin: 02/11/18 08:07 Dose: 3 ml Enoxaparin Sodium (Lovenox) 40 mg SC DAILY DARIEL PRN Reason: Protocol Last Admin: 02/11/18 08:35 Dose: 40 mg Levofloxacin/Dextrose (Levaquin 250mg) 250 mg in 50 mls @ 50 mls/hr IVPB DAILY DARIEL PRN Reason: Protocol Last Admin: 02/11/18 08:35 Dose: 50 mls/hr Lorazepam (Ativan) 0.5 mg PO Q6 PRN PRN Reason: Anxiety Last Admin: 02/11/18 03:52 Dose: 0.5 mg Pantoprazole Sodium (Protonix Ec Tab) 20 mg PO DAILY [facility] Last Admin: 02/11/18 08:35 Dose: 20 mg Prednisone (Prednisone Tab) 40 mg PO DAILY [facility] Last Admin: 02/11/18 08:36 Dose: 40 mg Fluticasone/Salmeterol (Advair Diskus 500/50) 1 puff IH Q12 DARIEL Last Admin: 02/11/18 08:35 Dose: 1 puff Tramadol HCl (Ultram) 50 mg PO Q6 PRN PRN Reason: Pain, severe (8-10) Last Admin: 02/11/18 04:58 Dose: 50 mg - Labs Labs: 02/11/18 06:44 02/11/18 04:00 - Constitutional Appears: Non-toxic, No Acute Distress - Head Exam Head Exam: ATRAUMATIC, NORMOCEPHALIC - Eye Exam Eye Exam: EOMI, PERRL. absent: Scleral icterus Pupil Exam: PERRL. absent: Miosis, Mydriatic - ENT Exam ENT Exam: Mucous Membranes Moist, Normal Oropharynx - Neck Exam Neck Exam: Full ROM, Normal Inspection - Respiratory Exam Respiratory Exam: Clear to Ausculation Bilateral. absent: Rales, Rhonchi, Wheezes - Cardiovascular Exam Cardiovascular Exam: RRR, +S1, +S2. absent: Gallop, Rubs - GI/Abdominal Exam GI & Abdominal Exam: Soft, Normal Bowel Sounds. absent: Distended, Firm, Guarding, Rigid, Tenderness, Organomegaly, Rebound - Extremities Exam Extremities Exam: Full ROM, Normal Inspection. absent: Pedal Edema - Neurological Exam Neurological Exam: Alert, Awake, Oriented x3 - Skin Skin Exam: Dry, Intact, Normal Color, Warm Assessment and Plan - Assessment and Plan (Free Text) Assessment: 42 year old male with PMH of asthma, two hospitalizations (11/2017, 12/2017) for multifocal HCAP with asthma exacerbation, pancreatitis, chronic elevated troponin, and vitiligo presenting with shortness of breath. Active treatment of asthma exacerbation and chronic abdominal pain. No prior EGD or colonoscopy. Plan: -on Prednisone daily -follows with pulmonology at [place]- previous recommended workup planned for Churg-rhys given chronic abdominal pain, pancreatitis, and eosinophilia -continue PPI BID -counselled on small, frequent meals and lifestyle modifications for possible dyspepsia -medical optimization of pulmonary status prior to elective endoscopic evaluation of chronic abdominal pain -keep previously established appointment with Dr. Heart tomorrow, Thursday02/12/18
[2018-02-11] MEDS ORDERED: methylPREDNISolone 40 MG in Sodium Chloride 0.9% 50 ML IV ONE (11:48)
[2018-02-11] MEDS ORDERED: MethylPREDNISolone 40 mg Vial IVP ONE (12:00)
[2018-02-11 12:14] VITALS: BP 114/82; PULSE 99; TEMP 97.6; O2SAT 95
== END 2018-02-11 15:12 | disposition home or self-care (01) | DRG 541 ==
LOC: H.ER 09:55 → H.ERHOLD 13:52 → H.TEL 16:17
PROVIDERS: ADMIT Family Medicine Geriatric Medicine; ATTEND Family Medicine Geriatric Medicine
DX: J44.0 Chronic obstructive pulmonary disease with (acute) lower respiratory infection (principal); J18.9 Pneumonia, unspecified organism; N17.9 Acute kidney failure, unspecified; I50.22 Chronic systolic (congestive) heart failure; J45.51 Severe persistent asthma with (acute) exacerbation; J44.1 Chronic obstructive pulmonary disease with (acute) exacerbation; I25.2 Old myocardial infarction; Z76.5 Malingerer [conscious simulation]; K29.70 Gastritis, unspecified, without bleeding; L80 Vitiligo; F41.9 Anxiety disorder, unspecified; G89.29 Other chronic pain; R79.1 Abnormal coagulation profile; Z79.52 Long term (current) use of systemic steroids; K86.1 Other chronic pancreatitis

== ENCOUNTER 2018-02-16 00:15 | Emergency (ER) | payer MEDICAID ==
[2018-02-16 00:16] VITALS: BMI 21.2
[2018-02-16 00:51] VITALS: BP 105/76; PULSE 102; RESP 16; TEMP 98; O2SAT 98
[2018-02-16] MEDS ORDERED: Famotidine 20mg/50ml Premix IVPB STA (01:10)
[2018-02-16] MEDS ORDERED: Sodium Chloride 0.9% 1,000 ML IV STA (01:10)
--- NOTE | 2018-02-16 01:13 | ED PDOC ---
HPI: Abdomen Time Seen by Provider: 02/16/18 00:54 Chief Complaint (Nursing): Abdominal Pain Chief Complaint (Provider): abdominal pain History Per: Patient History/Exam Limitations: no limitations Onset/Duration Of Symptoms: Days (2) Current Symptoms Are (Timing): Still Present Location Of Pain/Discomfort: Diffuse Associated Symptoms: Nausea, Vomiting, Diarrhea Additional Complaint(s): 42 y/o male presents for evaluation of ongoing upper abdominal pain x 2 days. Associated vomiting, diarrhea. Patient states these symptoms have been going on for over a month and is being worked up as an outpatient for gastritis; states he has appt for endoscopy 03/09 but presents tonight due to worsening pain. Patient reports little relief with prescribed medications, including omeprazole, protonix, carafate. Denies fever, chest pain, shortness of breath, palpitations, recent travel, sick contacts. Past Medical History Reviewed: Historical Data, Nursing Documentation, Vital Signs Vital Signs: Last Vital Signs Temp 98.0 F 02/16/18 00:49 Pulse 102 H 02/16/18 00:49 Resp 16 02/16/18 00:49 BP 105/76 02/16/18 00:49 Pulse Ox 98 02/16/18 01:13 - Medical History PMH: Asthma, COPD, Gastritis, Pancreatitis, Pneumonia Denies: HIV, Chronic Kidney Disease - Family History Family History: States: Unknown Family Hx - Social History Current smoker - smoking cessation education provided: No Alcohol: None Drugs: Denies - Home Medications Home Medications: Ambulatory Orders Medication Instructions Recorded Albuterol 0.5% [Albuterol 0.5% 1 ml IH Q6 PRN 02/09/18 Inhal Cassidy (2.5 mg/0.5 ml) UD] Albuterol Sulfate [Ventolin Hfa] 2 puff IH Q6 PRN 02/09/18 Magnesium Oxide [Magox 400] 400 mg PO BID 02/09/18 Multivitamin [Multi-Vitamin Daily] 1 tab PO DAILY 02/09/18 Omeprazole 20 mg PO DAILY 02/09/18 traMADol [Ultram] 50 mg PO Q6 PRN 02/09/18 Aluminum Hydroxide/Magnesium 30 ml PO Q6 PRN #1 bottle 02/11/18 [Maalox Plus 30 ml] Azithromycin 500 mg PO DAILY #5 tablet 02/11/18 Prednisone 30 mg PO DAILY #14 tablet 02/11/18 Dicyclomine [Bentyl] 20 mg PO TID PRN #15 tab 02/16/18 Ondansetron ODT [Zofran ODT] 4 mg PO Q8 PRN #10 odt 02/16/18 - Allergies Allergies/Adverse Reactions: Allergies Allergy/AdvReac Type Severity Reaction Status Date / Time No Known Allergies Allergy Verified 02/09/18 10:02 Review of Systems ROS Statement: Except As Marked, All Systems Reviewed And Found Negative Gastrointestinal: Positive for: Nausea, Vomiting, Abdominal Pain, Diarrhea Physical Exam - Reviewed Nursing Documentation Reviewed: Yes Vital Signs Reviewed: Yes - Physical Exam Appears: Positive for: Well, Non-toxic, No Acute Distress Head Exam: Positive for: ATRAUMATIC, NORMAL INSPECTION, NORMOCEPHALIC Skin: Positive for: Normal Color Eye Exam: Positive for: Normal appearance ENT: Positive for: Normal ENT Inspection Cardiovascular/Chest: Positive for: Regular Rate, Rhythm Respiratory: Positive for: Normal Breath Sounds Gastrointestinal/Abdominal: Positive for: Bowel Sounds, Soft, Tenderness ( epigastric, ruq, luq) Back: Positive for: Normal Inspection Extremity: Positive for: Normal ROM Neurologic/Psych: Positive for: Alert, Oriented - Laboratory Results Result Diagrams: 02/16/18 01:30 02/16/18 01:30 - ECG O2 Sat by Pulse Oximetry: 98 - Progress ED Course And Treament: labs, IV pepcid, IV reglan, IV fluids On re-eval, patient sleeping; upon awakening states pain improved but still present. IV toradol ordered 4:15 Patient sleeping; upon awakening states he is feeling much better. Tolerated PO Patient educated on findings, discharged with rx zofran, bentyl Advised to continue previous medications BRAT diet. Follow up PMD 2-3 days. Follow up GI as scheduled Return precautions given. Disposition - Clinical Impression Clinical Impression: Gastritis, Gastroenteritis - Patient ED Disposition Is Patient to be Admitted: No Counseled Patient/Family Regarding: Studies Performed, Diagnosis, Need For Followup, Rx Given - Disposition Referrals: Vandana Vidales MD [Primary Care Provider] - Disposition: Routine/Home Disposition Time: 04:17 Condition: IMPROVED Prescriptions: Dicyclomine [Bentyl] 20 mg PO TID PRN #15 tab PRN Reason: Pain, Mild (1-3) Ondansetron ODT [Zofran ODT] 4 mg PO Q8 PRN #10 odt PRN Reason: Nausea/Vomiting Instructions: Gastritis, Gastroenteritis (ED) Forms: [facility] (Armenian)
[2018-02-16] MEDS ORDERED: Famotidine 20mg/50ml 20 MG/50 ML BAG IVPB ONE (01:28)
[2018-02-16 01:47] LABS: BASO # 0.2 K/uL (0.0-0.2); BASO % 0.7 % (0.0-2.0); EOS # 9.5 K/uL (0.0-0.7); EOS % 40.6 % (0.0-4.0); HEMOGLOBIN 14.8 g/dL (12.0-18.0); LYMPH # 3.9 K/uL (1.0-4.3); MEAN CELL VOLUME 89.5 fl (80.0-94.0); MEAN CORPUSCULAR HEMOGLOBIN 30.1 pg (27.0-31.0); MEAN CORPUSCULAR HGB CONC 33.6 g/dL (33.0-37.0); MEAN PLATELET VOLUME 8.1 fl (7.2-11.7); MONO # 1.4 K/uL (0.0-0.8); MONO % 6.2 % (0.0-10.0); NEUT # 8.3 K/uL (1.8-7.0); NEUT % 35.5 % (50.0-75.0); PLATELET COUNT 330 K/uL (130-400); RBC 4.91 Mil/uL (4.40-5.90); RED CELL DISTRIBUTION WIDTH 15.7 % (11.5-14.5); WHITE BLOOD COUNT 23.2 K/uL (4.8-10.8)
[2018-02-16 01:54] LABS: ALB/GLOB RATIO 0.9 (1.0-2.1); ALBUMIN 3.5 g/dL (3.5-5.0); ALT/SGPT 78 U/L (21-72); AST/SGOT 49 U/L (17-59); BLOOD UREA NITROGEN 23 mg/dl (9-20); CALCIUM 8.8 mg/dL (8.4-10.2); GFR AFRICAN-AMERICAN > 60; GFR NON-AFRICAN AMERICAN > 60; LIPASE 45 U/L (23-300)
[2018-02-16 03:25] LABS: EOSINOPHIL 33 % (0-7); LYMPHOCYTE 18 % (20-50); MONOCYTE 3 % (0-10); NEUTROPHIL 44 % (42-75); PLATELET ESTIMATE NORMAL (NORMAL); REACTIVE LYMPHOCYTES 2 % (0-0); TOTAL CELLS COUNTED 100
[2018-02-16 03:27] LABS: ANISOCYTOSIS SLIGHT; HYPOCHROMIC SLIGHT; SMUDGE CELLS PRESENT; TOXIC GRANULATION PRESENT
== END 2018-02-16 04:40 | disposition home or self-care (01) ==
LOC: H.ER 00:15
DX: K52.9 Noninfective gastroenteritis and colitis, unspecified (principal); K29.70 Gastritis, unspecified, without bleeding; J44.9 Chronic obstructive pulmonary disease, unspecified
CPT/HCPCS: 80053; 83690; 85025; 96365; 96375; 99283; J1885; J2765; J7030

== ENCOUNTER 2018-02-23 18:20 | Emergency (ER) | payer MEDICAID, SELFPAY ==
[2018-02-23 18:20] VITALS: BMI 21.2
[2018-02-23 18:34] VITALS: RESP 16
[2018-02-23] MEDS ORDERED: Sodium Chloride 0.9% 1,000 ML IV STA (19:14)
[2018-02-23 19:33] LABS: BASO # 0.1 K/uL (0.0-0.2); BASO % 0.4 % (0.0-2.0); EOS # 0.9 K/uL (0.0-0.7); EOS % 5.9 % (0.0-4.0); HEMOGLOBIN 14.8 g/dL (12.0-18.0); LYMPH # 1.9 K/uL (1.0-4.3); MEAN CELL VOLUME 89.5 fl (80.0-94.0); MEAN CORPUSCULAR HEMOGLOBIN 28.7 pg (27.0-31.0); MEAN CORPUSCULAR HGB CONC 32.1 g/dL (33.0-37.0); MEAN PLATELET VOLUME 8.7 fl (7.2-11.7); MONO # 0.6 K/uL (0.0-0.8); MONO % 3.9 % (0.0-10.0); NEUT # 12.5 K/uL (1.8-7.0); NEUT % 77.8 % (50.0-75.0); NRBC % 0.1 % (0.0-0.0); RBC 5.16 Mil/uL (4.40-5.90); RED CELL DISTRIBUTION WIDTH 15.2 % (11.5-14.5)
--- NOTE | 2018-02-23 19:46 | ED PDOC ---
HPI: Abdomen Time Seen by Provider: 02/23/18 19:04 Chief Complaint (Nursing): Abdominal Pain History Per: Patient Onset/Duration Of Symptoms: Days Outside of [place] travel?: No Location Of Pain/Discomfort: Epigastric Quality Of Discomfort: Pressure Associated Symptoms: Nausea, Vomiting. denies: Fever, Chills, Diarrhea, Loss Of Appetite, Constipation, Urinary Symptoms Additional Complaint(s): Hx of gastritis presenting with epigastric pain and vomiting, patient states this is an ongoing issue for the past 1.5 months, has appointment with GI on 03/09 but pain was worsening and now accompanied by vomiting x 5 nonbloody non bilious, normal BM's, no lower abdominal pain, no urinary symptoms or changes in bowel pattern. No fevers, chills. Past Medical History Reviewed: Historical Data, Nursing Documentation, Vital Signs Vital Signs: Last Vital Signs Temp 97.7 F 02/23/18 18:31 Pulse 84 02/23/18 18:31 Resp 16 02/23/18 18:31 BP 129/92 H 02/23/18 18:31 Pulse Ox 95 02/23/18 19:49 - Medical History PMH: Asthma, COPD, Gastritis, Pancreatitis, Pneumonia Denies: HIV, Chronic Kidney Disease - Family History Family History: States: Unknown Family Hx - Home Medications Home Medications: Ambulatory Orders Medication Instructions Recorded Albuterol 0.5% [Albuterol 0.5% 1 ml IH Q6 PRN 02/09/18 Inhal Cassidy (2.5 mg/0.5 ml) UD] Albuterol Sulfate [Ventolin Hfa] 2 puff IH Q6 PRN 02/09/18 Magnesium Oxide [Magox 400] 400 mg PO BID 02/09/18 Multivitamin [Multi-Vitamin Daily] 1 tab PO DAILY 02/09/18 Omeprazole 20 mg PO DAILY 02/09/18 traMADol [Ultram] 50 mg PO Q6 PRN 02/09/18 Aluminum Hydroxide/Magnesium 30 ml PO Q6 PRN #1 bottle 02/11/18 [Maalox Plus 30 ml] Azithromycin 500 mg PO DAILY #5 tablet 02/11/18 Prednisone 30 mg PO DAILY #14 tablet 02/11/18 Dicyclomine [Bentyl] 20 mg PO TID PRN #15 tab 02/16/18 Ondansetron ODT [Zofran ODT] 4 mg PO Q8 PRN #10 odt 02/16/18 Ketorolac Tromethamine [Toradol] 10 mg PO BID #14 tab 02/23/18 Ondansetron [Zofran] 4 mg PO Q8H #12 tab 02/23/18 - Allergies Allergies/Adverse Reactions: Allergies Allergy/AdvReac Type Severity Reaction Status Date / Time No Known Allergies Allergy Verified 02/23/18 18:31 Review of Systems ROS Statement: Except As Marked, All Systems Reviewed And Found Negative Gastrointestinal: Positive for: Nausea, Vomiting, Abdominal Pain Physical Exam - Reviewed Nursing Documentation Reviewed: Yes Vital Signs Reviewed: Yes - Physical Exam Appears: Positive for: Well, Non-toxic, No Acute Distress Head Exam: Positive for: ATRAUMATIC, NORMAL INSPECTION, NORMOCEPHALIC Skin: Positive for: Normal Color, Warm, DRY Eye Exam: Positive for: EOMI, Normal appearance, PERRL ENT: Positive for: Normal ENT Inspection Neck: Positive for: Normal, Painless ROM Cardiovascular/Chest: Positive for: Regular Rate, Rhythm Respiratory: Positive for: CNT, Normal Breath Sounds Gastrointestinal/Abdominal: Positive for: Normal Exam, Bowel Sounds, Soft. Negative for: Tenderness Back: Positive for: Normal Inspection Extremity: Positive for: Normal ROM Neurologic/Psych: Positive for: Alert, Oriented - Laboratory Results Result Diagrams: 02/23/18 19:28 02/23/18 19:28 - ECG O2 Sat by Pulse Oximetry: 95 Pulse Ox Interpretation: Normal Medical Decision Making Medical Decision MakinPM A/P: Hx of gastritis, COPD presenting with epigastric pain -patient comfortable, exam largely nontender -patient's 3rd visit to ER for same problem -will get labs, U/S -patient requesting toradol for pain, will also give PPI -ddx: gastritis v pancreatitis v biliary colic 1030PM U/S Negative -patient feeling significantly improved, tolerating PO -will d/c home with referral to GI -return precautions discussed Disposition - Clinical Impression Clinical Impression: Epigastric abdominal pain - Disposition Referrals: [facility] [Outside] Naren Heart MD [Medical Doctor] - Disposition: Routine/Home Disposition Time: 22:31 Condition: STABLE Prescriptions: Ketorolac Tromethamine [Toradol] 10 mg PO BID #14 tab Ondansetron [Zofran] 4 mg PO Q8H #12 tab Instructions: Gastritis, Nausea and Vomiting, Adult Forms: [facility] (Chinese)
[2018-02-23 19:47] LABS: ALB/GLOB RATIO 0.8 (1.0-2.1); ALT/SGPT 37 U/L (21-72); AST/SGOT 27 U/L (17-59); BLOOD UREA NITROGEN 19 mg/dl (9-20); CALCIUM 9.3 mg/dL (8.4-10.2); GFR AFRICAN-AMERICAN > 60; GFR NON-AFRICAN AMERICAN > 60; LIPASE 43 U/L (23-300)
[2018-02-23 21:00] LABS: URINE BILIRUBIN NEGATIVE (NEGATIVE); URINE BLOOD SMALL (NEGATIVE); URINE CLARITY CLEAR (Clear); URINE COLOR YELLOW (YELLOW); URINE GLUCOSE (UA) NEG (Normal); URINE LEUKOCYTE ESTERASE NEG Leu/uL (Negative); URINE PROTEIN NEGATIVE (NEGATIVE); URINE UROBILINOGEN 0.2-1.0 mg/dL (0.2-1.0)
[2018-02-23 23:18] VITALS: BP 111/78; PULSE 73; TEMP 97.8; O2SAT 94
--- NOTE | 2018-02-24 10:32 | US ---
HISTORY: epig pain COMPARISON: None. TECHNIQUE: Sonographic evaluation of the right upper quadrant of the abdomen. FINDINGS: LIVER: Measures 15.7 cm in length. Normal echogenicity of the liver parenchyma. No mass. No intrahepatic bile duct dilatation. GALLBLADDER: Unremarkable. No gallstones. COMMON BILE DUCT: Measures 4 mm. No stones. No dilatation. PANCREAS: Unremarkable as visualized. No mass. No ductal dilatation. RIGHT KIDNEY: Measures 10.0 x 5.5 x 4.6 cm in length. Normal echogenicity. No calculus, mass, or hydronephrosis. AORTA: No aneurysmal dilatation. IVC: Unremarkable. OTHER FINDINGS: None . IMPRESSION: Unremarkable right upper quadrant ultrasound.
== END 2018-02-23 23:15 | disposition home or self-care (01) ==
LOC: H.ER 18:20
DX: R10.13 Epigastric pain (principal); K85.90 Acute pancreatitis without necrosis or infection, unspecified; J44.9 Chronic obstructive pulmonary disease, unspecified
CPT/HCPCS: 76705; 80053; 81003; 83690; 85025; 96361; 96374; 96375; 99284; C9113; J1885; J2405; J7030

== ENCOUNTER 2018-03-02 10:02 | Day surgery (SDC) | payer MEDICAID ==
[2018-03-02] MEDS ORDERED: Lactated Ringer's 500 ML IV ONE (10:21)
[2018-03-02] MEDS ORDERED: Albuterol 0.083% Inhal Sol (2.5 mg/3 mL) UD INH ONE (12:06)
[2018-03-02 12:08] VITALS: TEMP 97; O2SAT 97
[2018-03-02 12:49] VITALS: BP 108/65; PULSE 86; RESP 20
== END 2018-03-02 13:19 | disposition home or self-care (01) ==
LOC: H.ENDO 10:02
PROVIDERS: ATTEND Internal Medicine Gastroenterology
DX: K25.9 Gastric ulcer, unspecified as acute or chronic, without hemorrhage or perforation (principal); K26.9 Duodenal ulcer, unspecified as acute or chronic, without hemorrhage or perforation; K63.89 Other specified diseases of intestine; K92.2 Gastrointestinal hemorrhage, unspecified; K63.3 Ulcer of intestine; B37.81 Candidal esophagitis; K31.9 Disease of stomach and duodenum, unspecified; K22.9 Disease of esophagus, unspecified; R13.10 Dysphagia, unspecified; K30 Functional dyspepsia; R10.33 Periumbilical pain; K29.50 Unspecified chronic gastritis without bleeding
CPT/HCPCS: 43239; 45380; 88104; 88108; 88305; 88342; J2001; J2250; J2704; J7120

== ENCOUNTER 2018-03-09 22:01 | Emergency (ER) | payer MEDICAID ==
[2018-03-09 22:02] VITALS: BMI 21.2
[2018-03-09 22:09] VITALS: RESP 16
[2018-03-09] MEDS ORDERED: Sodium Chloride 0.9% 1,000 ML IV STA (22:27)
[2018-03-09] MEDS ORDERED: Famotidine 20mg/50ml Premix IVPB STA (22:27)
[2018-03-09 22:36] LABS: BASO # 0.1 K/uL (0.0-0.2); BASO % 0.5 % (0.0-2.0); EOS # 0.7 K/uL (0.0-0.7); EOS % 4.2 % (0.0-4.0); HEMOGLOBIN 14.8 g/dL (12.0-18.0); LYMPH % 17.2 % (20.0-40.0); MEAN CELL VOLUME 88.2 fl (80.0-94.0); MEAN CORPUSCULAR HEMOGLOBIN 28.9 pg (27.0-31.0); MEAN CORPUSCULAR HGB CONC 32.8 g/dL (33.0-37.0); MEAN PLATELET VOLUME 8.5 fl (7.2-11.7); MONO # 0.8 K/uL (0.0-0.8); MONO % 4.4 % (0.0-10.0); NEUT # 12.7 K/uL (1.8-7.0); NEUT % 73.7 % (50.0-75.0); NRBC % 0.1 % (0.0-0.0); RBC 5.11 Mil/uL (4.40-5.90); RED CELL DISTRIBUTION WIDTH 14.6 % (11.5-14.5); WHITE BLOOD COUNT 17.3 K/uL (4.8-10.8)
[2018-03-09] MEDS ORDERED: Famotidine 20mg/50ml 20 MG/50 ML BAG IVPB ONE (22:37)
[2018-03-09] MEDS ORDERED: Morphine 4 MG/ML VIAL IVP STA (22:39)
[2018-03-09] MEDS ORDERED: Iohexol 240 (50 ml) PO ONE (22:42)
[2018-03-09 22:46] LABS: ALB/GLOB RATIO 0.9 (1.0-2.1); ALBUMIN 3.9 g/dL (3.5-5.0); ALT/SGPT 38 U/L (21-72); AST/SGOT 38 U/L (17-59); BLOOD UREA NITROGEN 23 mg/dl (9-20); CALCIUM 9.1 mg/dL (8.4-10.2); GFR AFRICAN-AMERICAN > 60; GFR NON-AFRICAN AMERICAN > 60; LIPASE 78 U/L (23-300)
[2018-03-09] MEDS ORDERED: Iohexol 240 (50 ml) ONE (22:50)
--- NOTE | 2018-03-10 00:30 | ED PDOC ---
HPI: Abdomen Time Seen by Provider: 03/09/18 22:24 Chief Complaint (Nursing): Abdominal Pain Chief Complaint (Provider): abdominal pain History Per: Patient History/Exam Limitations: no limitations Onset/Duration Of Symptoms: Hrs (x3) Current Symptoms Are (Timing): Still Present Location Of Pain/Discomfort: Other (lower abdominal) Associated Symptoms: Nausea, Vomiting. denies: Fever, Chills, Diarrhea, Urinary Symptoms Additional Complaint(s): Joaquin Avalos is a 42 year old male, with a past medical history of gastritis, pancreatitis, and diverticulitis, who presents to the emergency department complaining of lower abdominal pain onset for x3 hrs associated with nausea and vomiting. Patient just had a colonoscopy and endoscopy on March [address] Heart, GI, and was diagnosed with stomach ulcers. He was prescribed Cipro, Flagyl and Mesalamine but patient doesn't why. He denies any fever, chills, diarrhea, dysuria, hematuria or abdominal surgeries. No further medical complaints. PMD: Vandana Vidales Past Medical History Reviewed: Historical Data, Nursing Documentation, Vital Signs Vital Signs: Last Vital Signs Temp 98.0 F 03/09/18 22:06 Pulse 108 H 03/09/18 22:06 Resp 16 03/09/18 22:06 BP 112/83 03/09/18 22:06 Pulse Ox 98 03/10/18 04:27 - Medical History PMH: Asthma, CHF, COPD, Diverticulitis, Gastritis, Pancreatitis, Pneumonia Denies: HIV, Chronic Kidney Disease - Surgical History Surgical History: No Surg Hx - Family History Family History: States: Unknown Family Hx - Social History Current smoker - smoking cessation education provided: No Alcohol: None Drugs: Denies - Home Medications Home Medications: Ambulatory Orders Medication Instructions Recorded Albuterol 0.5% [Albuterol 0.5% 1 ml IH Q6 PRN 02/09/18 Inhal Cassidy (2.5 mg/0.5 ml) UD] traMADol [Ultram] 50 mg PO Q6 PRN 02/09/18 Prednisone 30 mg PO DAILY #14 tablet 02/11/18 - Allergies Allergies/Adverse Reactions: Allergies Allergy/AdvReac Type Severity Reaction Status Date / Time No Known Allergies Allergy Verified 03/02/18 10:30 Review of Systems ROS Statement: Except As Marked, All Systems Reviewed And Found Negative Constitutional: Negative for: Fever, Chills Gastrointestinal: Positive for: Nausea, Vomiting, Abdominal Pain (lower abdominal). Negative for: Diarrhea Genitourinary Male: Negative for: Dysuria, Hematuria Physical Exam - Reviewed Nursing Documentation Reviewed: Yes Vital Signs Reviewed: Yes - Physical Exam Comments: GENERAL APPEARANCE: Patient is awake, alert, oriented x 3, in moderate painful distress. Actively vomiting. SKIN: Warm, dry; (-) cyanosis. EYES: (-) conjunctival pallor, (-) scleral icterus. ENMT: Mucous membranes dry. NECK: (-) tenderness, (-) stiffness, (-) lymphadenopathy. CHEST AND RESPIRATORY: (-) rales, (-) rhonchi, (-) wheezes; breath sounds equal bilaterally. HEART AND CARDIOVASCULAR: (-) irregularity; (-) murmur, (-) gallop. ABDOMEN AND GI: (-) distention. Bowel sounds active; (+) moderate tenderness in the lower abdomen, (-) guarding, (-) rebound, (-) palpable masses, (-) CVA tenderness. EXTREMITIES: (-) deformity, (-) edema, (+) distal pulses. NEURO AND PSYCH: Mental status as above; (-) focal findings. - Laboratory Results Result Diagrams: 03/09/18 22:34 03/09/18 22:34 - ECG O2 Sat by Pulse Oximetry: 98 (RA) Pulse Ox Interpretation: Normal Medical Decision Making Medical Decision Making: Time: 22:24 Initial Impression: Abdominal pain Initial Plan: --Abd Pelvis PO & IV Contrast [CT] --CMP --Lipase --Urine dipstick --CBC w/ differential --Morphine 4 mg IVP --Sodium Chloride 1,000 ml IV 1,000 mls/hr --Omnipaque 240 ml 50 ml PO --Pepcid 20mg/50ml Premix 20 mg IVPB --Zofran ODT 4 mg IVP --Reevaluation -Patient had an endoscopy and colonoscopy performed here as an outpatient. -Colonoscopy shows mucosal ulceration. Friability with contact bleeding in the entire examined colon -Endoscopy shows esophageal plaques found, consistent with candidiasis. Non- bleeding gastric ulcers with no stigmata of bleeding. Bleeding erosive gastropathy. Multiple non-bleeding duodenal ulcers with no stigmata of bleeding. Labs reviewed : WBC 17. Patient reports of continued pain and nausea. Patient given another dose of morphine 4 mg IV and zofran 4 mg IV. 03:00 Abdomen/Pelvis CT FINDINGS: Lung bases: Unremarkable. No mass. No consolidation. ABDOMEN: Liver: Unremarkable. No mass. Gallbladder and bile ducts: Mild intrahepatic biliary ductal dilation also on . The common bile duct is 4 mm. No calcified stones. Pancreas: Unremarkable. No mass. No ductal dilation. Spleen: Unremarkable. No splenomegaly. Adrenals: Unremarkable. No mass. Kidneys and ureters: Unremarkable. No solid mass. No hydronephrosis. Stomach and bowel: Wall thickening of the right hemicolon is likely an infectious or inflammatory colitis. No obstruction. PELVIS: Appendix: No findings to suggest acute appendicitis. Bladder: Unremarkable. No mass. Reproductive: Unremarkable as visualized. ABDOMEN and PELVIS: Intraperitoneal space: Unremarkable. No free air. No significant fluid collection. Bones/joints: No acute fracture. No dislocation. Soft tissues: Unremarkable. Vasculature: Unremarkable. No abdominal aortic aneurysm. Lymph nodes: Unremarkable. No enlarged lymph nodes. IMPRESSION: 1. Wall thickening of the right hemicolon is likely an infectious or inflammatory colitis. 2. Mild intrahepatic biliary ductal dilation also on 01/26/2018. The common bile duct is 4 mm. Please correlate clinically for potential biliary obstruction. On re-evaluation, patient reports improvement of symptoms, denies any pain or nausea at this time. On exam, patient remains AAOx3, in no acute distress. Diagnostic results d/w the patient in great detail. Diagnosis of colitis d/w the patient. Cipro IV and flagyl IV ordered. Based on history, exam and diagnostic results, plan will be for inpatient admission. However the patient is refusing admission. He wants to leave A. Patient refuses inpatient admission. Patient informed of the reasons for the following and planned treatment, which patient understands, however still refuses. Patient informed of the risk and benefits of treatment. Informed that the risk could include worsening of current symptoms/conditions, developing sepsis, disability or even . Patient understands the following risk and the benefits of treatment (benefits include continued IV antibiotics, observation, GI consult). Patient has the capacity to make decisions and still refuses inpatient admission being offered to him by RN, PA and ER MD. Patient encouraged to return to the ER at any time and to follow up with his GI doctor. Advised to take his current medications as prescribed by his GI. Return to the emergency room at any time for any new or worsening symptoms. Verbalized and repeated back to FILIPE that he understands he will be leaving AMA. I have given the patient opportunity to ask any additional questions. ----- Scribe Attestation: Documented by Junior Hylton, acting as a scribe for Cristina Blanco PA-C. Provider Scribe Attestation: All medical record entries made by the Scribe were at my direction and personally dictated by me. I have reviewed the chart and agree that the record accurately reflects my personal performance of the history, physical exam, medical decision making, and the department course for this patient. I have also personally directed, reviewed, and agree with the discharge instructions and disposition. Disposition - Clinical Impression Clinical Impression: Colitis - Patient ED Disposition Is Patient to be Admitted: No Counseled Patient/Family Regarding: Studies Performed, Diagnosis, Need For Followup - Disposition Disposition: Against Medical Advice Disposition Time: 05:00 Condition: STABLE Additional Instructions: Thank you for letting us take care of you today. You were treated for abdominal pain, colitis. You are choosing to leave against medical advice. The emergency medical care you received today was directed at your acute symptoms. Continue current antibiotics. Return to the Emergency Department if your symptoms worsen , do not improve, if you have any other problems, or if you change your mind. Please contact your GI doctor in 1-2 days for re-evaluation and follow up. Bring any paperwork you were given at discharge with you along with any medications you are taking to your follow up visit. Our treatment cannot replace ongoing medical care by a primary care provider (PCP) outside of the emergency department. Thank you for allowing the [facility] team to be part of your care today. Instructions: Ulcerative Colitis (DC), Leaving Against Medical Advice Forms: Funding Profiles (Korean)
[2018-03-10] MEDS ORDERED: Morphine 4 MG/ML VIAL IVP STA (00:37)
[2018-03-10] MEDS ORDERED: Morphine 4 MG/ML VIAL ONE (00:50)
[2018-03-10] MEDS ORDERED: Iohexol 300 100 ML IJ ONE (01:16)
[2018-03-10] MEDS ORDERED: Sodium Chloride 0.9% 100 ML ONE (01:16)
[2018-03-10] MEDS ORDERED: Ciprofloxacin 400mg/200ml D5W 400 MG/200 ML BAG IVPB STA (03:42)
[2018-03-10] MEDS ORDERED: metroNIDAZOLE 500mg/100ml NS 100 ML IVPB STA (03:42)
[2018-03-10 06:22] VITALS: BP 116/80; PULSE 86; TEMP 97.9; O2SAT 99
--- NOTE | 2018-03-10 10:25 | CT ---
PROCEDURE: CT Abdomen and Pelvis with contrast HISTORY: lower abd pain COMPARISON: None. TECHNIQUE: Contrast dose: 95 cc Radiation dose: Total exam DLP = 220.65 mGy-cm. This CT exam was performed using one or more of the following dose reduction techniques: Automated exposure control, adjustment of the mA and/or kV according to patient size, and/or use of iterative reconstruction technique. FINDINGS: LOWER THORAX: 5 millimeter nodule noted in the right lower lobe. Bilateral lower lobe atelectatic changes. LIVER: 9 millimeter enhancing nodule in the left lobe of the liver (series 3, image 36. Multiple sub centimeter hypodensities throughout the liver parenchyma, too small to characterize accurately. GALLBLADDER AND BILE DUCTS: Mild intrahepatic biliary ductal dilatation. PANCREAS: Unremarkable. No gross lesion or ductal dilatation. SPLEEN: Unremarkable. ADRENALS: Unremarkable. No mass. KIDNEYS AND URETERS: Unremarkable. No hydronephrosis. No solid mass. VASCULATURE: Unremarkable. No aortic aneurysm. BOWEL: No bowel obstruction. However, long segment thickening of the ascending colon particularly involving the cecum noted. Mild pericolonic stranding noted in this segment. No localized fluid collection. APPENDIX: Normal appendix. PERITONEUM: No fluid collection in the peritoneal. LYMPH NODES: Mildly prominent retro peritoneal lymph nodes. BLADDER: Unremarkable. REPRODUCTIVE: Unremarkable. BONES: Focal hypodensity noted in the left iliac bone. This is of unclear clinical significance in this evaluation. OTHER FINDINGS: None. IMPRESSION: Long segment thickening involving the ascending colon and particularly cecum. Mild pericolonic stranding noted in this segment. No localized fluid collection. Underlying infectious or inflammatory etiology should be considered. Malignancy cannot be excluded however is unlikely. Follow-up recommended. Colonoscopy recommended if indicated. Focal hypodensity is noted in the left iliac bone. This is of unclear significance. If indicated, a nuclear medicine bone scan should be obtained to evaluate for metabolic activity. 9 millimeter enhancing nodule in the left lobe of the liver. Mild intrahepatic biliary ductal dilatation. Liver centric CT scan with and without contrast recommended. Five millimeter nodule noted in the right lower lobe. Chest CT scan should be obtained in 3-6 months. Please note that this report is discordant with preliminary report.
== END 2018-03-10 06:22 | disposition left against medical advice (07) ==
LOC: H.ER 22:01
DX: K52.9 Noninfective gastroenteritis and colitis, unspecified (principal)
CPT/HCPCS: 74177; 80053; 83690; 85025; 96361; 96365; 96367; 96375; 96376; 99284; J0744; J2270; J2405; J7030; Q9966; Q9967

== ENCOUNTER 2018-03-11 16:10 | Observation (INO) | payer MEDICAID ==
[2018-03-11 16:11] VITALS: BMI 21.2
[2018-03-11] MEDS ORDERED: Morphine 4 MG/ML VIAL IVP ONE (19:47)
[2018-03-11] MEDS ORDERED: Sodium Chloride 0.9% 1,000 ML IV STA (19:49)
[2018-03-11] MEDS ORDERED: Morphine 4 MG/ML VIAL ONE (19:57)
[2018-03-11 20:11] LABS: BASO # 0.2 K/uL (0.0-0.2); BASO % 0.7 % (0.0-2.0); EOS # 9.6 K/uL (0.0-0.7); EOS % 44.5 % (0.0-4.0); HEMOGLOBIN 13.7 g/dL (12.0-18.0); LYMPH # 2.9 K/uL (1.0-4.3); LYMPH % 13.4 % (20.0-40.0); MEAN CELL VOLUME 88.3 fl (80.0-94.0); MEAN CORPUSCULAR HEMOGLOBIN 29.3 pg (27.0-31.0); MEAN CORPUSCULAR HGB CONC 33.2 g/dL (33.0-37.0); MEAN PLATELET VOLUME 8.3 fl (7.2-11.7); MONO # 1.1 K/uL (0.0-0.8); MONO % 5.2 % (0.0-10.0); NEUT # 7.8 K/uL (1.8-7.0); NEUT % 36.2 % (50.0-75.0); PLATELET COUNT 299 K/uL (130-400); RBC 4.67 Mil/uL (4.40-5.90); WHITE BLOOD COUNT 21.6 K/uL (4.8-10.8)
[2018-03-11] MEDS ORDERED: Ciprofloxacin 400mg/200ml D5W 400 MG/200 ML BAG IVPB STA (20:23)
[2018-03-11] MEDS ORDERED: Ciprofloxacin 400mg/200ml D5W 400 MG/200 ML BAG IVPB ONE (20:31)
--- NOTE | 2018-03-11 21:33 | ED PDOC ---
HPI: Back Time Seen by Provider: 03/11/18 19:44 Chief Complaint (Nursing): Back Pain Chief Complaint (Provider): Back Pain History Per: Patient History/Exam Limitations: no limitations Onset/Duration Of Symptoms: Persistent (x1 month) Current Symptoms Are (Timing): Still Present Additional Complaint(s): 42 year old male with medical history of chronic pain presents to the emergency department with a complaint of persistent lower abdominal and back pain worsening for 1 month. Patient was recently seen in ED 2 days ago and treated for colitis. At the time, patient was offered for admission but declined because he "had other priorities". Patient has multiple ED visits for similar complaints with endoscopy performed by Dr. Heart during past admission. He called Dr. Heart today, in which, he was recommended to go to ED for another admission. He denies any further medical complaints and asking for pain medication upon arrival. PMD: [facility] Past Medical History Reviewed: Historical Data, Nursing Documentation, Vital Signs Vital Signs: Last Vital Signs Temp 98.5 F 03/11/18 17:12 Pulse 98 H 03/11/18 17:12 Resp 20 03/11/18 17:12 BP 101/64 03/11/18 17:12 Pulse Ox 98 03/11/18 17:12 - Medical History PMH: Asthma, CHF, COPD, Diverticulitis, Gastritis, Pancreatitis, Pneumonia Denies: HIV, Chronic Kidney Disease - Surgical History Surgical History: No Surg Hx - Family History Family History: States: Unknown Family Hx - Home Medications Home Medications: Ambulatory Orders Medication Instructions Recorded Albuterol 0.5% [Albuterol 0.5% 1 ml IH Q6 PRN 02/09/18 Inhal Cassidy (2.5 mg/0.5 ml) UD] Prednisone 30 mg PO DAILY #14 tablet 02/11/18 Ciprofloxacin [Cipro] 500 mg PO BID 03/11/18 Fluticasone/Salmeterol 500/50 1 puff INH BID 03/11/18 [Advair Diskus 500/50] Mesalamine [Asacol HD 800mg] 1,600 mg PO TID 03/11/18 Omeprazole 40 mg PO DAILY 03/11/18 metroNIDAZOLE [Flagyl] 1 tab PO TID 03/11/18 - Allergies Allergies/Adverse Reactions: Allergies Allergy/AdvReac Type Severity Reaction Status Date / Time No Known Allergies Allergy Verified 03/11/18 17:12 Review of Systems ROS Statement: Except As Marked, All Systems Reviewed And Found Negative Gastrointestinal: Positive for: Abdominal Pain (lower) Musculoskeletal: Positive for: Back Pain (lower) Physical Exam - Reviewed Nursing Documentation Reviewed: Yes Vital Signs Reviewed: Yes - Physical Exam Appears: Positive for: Non-toxic, No Acute Distress Head Exam: Positive for: ATRAUMATIC, NORMAL INSPECTION, NORMOCEPHALIC Skin: Positive for: Normal Color Eye Exam: Positive for: Normal appearance ENT: Positive for: Normal ENT Inspection Neck: Positive for: Normal Cardiovascular/Chest: Positive for: Regular Rate, Rhythm Respiratory: Positive for: Normal Breath Sounds. Negative for: Respiratory Distress Gastrointestinal/Abdominal: Positive for: Normal Exam, Soft. Negative for: Tenderness, Distended Back: Positive for: Normal Inspection. Negative for: L CVA Tenderness, R CVA Tenderness, Vertebral Tenderness Extremity: Positive for: Normal ROM (upper/lower). Negative for: Tenderness ( upper/lower), Pedal Edema (bilateral) Neurologic/Psych: Positive for: Alert, Oriented. Negative for: Motor/Sensory Deficits - Laboratory Results Result Diagrams: 03/11/18 20:00 03/11/18 20:47 - ECG O2 Sat by Pulse Oximetry: 98 (RA) Pulse Ox Interpretation: Normal Medical Decision Making Medical Decision Making: Initial Impression: Abdominal pain; Back pain Differential Diagnosis: Colitis; Peptic ulcer disease; Acute/chronic abdominal and back pain Initial Plan: * CMP * Lipase * TSH * 2055 Gastro consult * CBC * Cipro 400mg in 200ml IVPB * Flagyl 500mg PO * Morphine 4mg IVP * NS 1,000ml IV per 1,000mls/hr * Pepcid 20mg IVP * Blood culture * Admit 2122 Old charts reviewed --US Gallbladder 02/23/18 FINDINGS: LIVER: Measures 15.7 cm in length. Normal echogenicity of the liver parenchyma. No mass. No intrahepatic bile duct dilatation. GALLBLADDER: Unremarkable. No gallstones. COMMON BILE DUCT: Measures 4 mm. No stones. No dilatation. PANCREAS: Unremarkable as visualized. No mass. No ductal dilatation. RIGHT KIDNEY: Measures 10.0 x 5.5 x 4.6 cm in length. Normal echogenicity. No calculus, mass, or hydronephrosis. AORTA: No aneurysmal dilatation. IVC: Unremarkable. OTHER FINDINGS: None . IMPRESSION: Unremarkable right upper quadrant ultrasound. --Endoscopy Op-report (03/03/18): duodenal ulcer, gastric ulcer, esophagitis ulcer, colitis --CT ABD/pelvis (03/09/18) FINDINGS: LOWER THORAX: 5 millimeter nodule noted in the right lower lobe. Bilateral lower lobe atelectatic changes. LIVER: 9 millimeter enhancing nodule in the left lobe of the liver (series 3, image 36. Multiple sub centimeter hypodensities throughout the liver parenchyma, too small to characterize accurately. GALLBLADDER AND BILE DUCTS: Mild intrahepatic biliary ductal dilatation. PANCREAS: Unremarkable. No gross lesion or ductal dilatation. SPLEEN: Unremarkable. ADRENALS: Unremarkable. No mass. KIDNEYS AND URETERS: Unremarkable. No hydronephrosis. No solid mass. VASCULATURE: Unremarkable. No aortic aneurysm. BOWEL: No bowel obstruction. However, long segment thickening of the ascending colon particularly involving the cecum noted. Mild pericolonic stranding noted in this segment. No localized fluid collection. APPENDIX: Normal appendix. PERITONEUM: No fluid collection in the peritoneal. LYMPH NODES: Mildly prominent retro peritoneal lymph nodes. BLADDER: Unremarkable. REPRODUCTIVE: Unremarkable. BONES: Focal hypodensity noted in the left iliac bone. This is of unclear clinical significance in this evaluation. OTHER FINDINGS: None. IMPRESSION: Long segment thickening involving the ascending colon and particularly cecum. Mild pericolonic stranding noted in this segment. No localized fluid collection. Underlying infectious or inflammatory etiology should be considered. Malignancy cannot be excluded however is unlikely. Follow-up recommended. Colonoscopy recommended if indicated. Focal hypodensity is noted in the left iliac bone. This is of unclear significance. If indicated, a nuclear medicine bone scan should be obtained to evaluate for metabolic activity. 9 millimeter enhancing nodule in the left lobe of the liver. Mild intrahepatic biliary ductal dilatation. Liver centric CT scan with and without contrast recommended. Five millimeter nodule noted in the right lower lobe. Chest CT scan should be obtained in 3-6 months. Time: 2124 --Discussed case with Dr. Blackwell, GI fellow for Dr Heart, whom recommends continuing current management and admission for colitis. Scribe Attestation: Documented by Claudia Almendarez, acting as a scribe for Isrrael Nettles MD. Provider Scribe Attestation: All medical record entries made by the Scribe were at my direction and personally dictated by me. I have reviewed the chart and agree that the record accurately reflects my personal performance of the history, physical exam, medical decision making, and the department course for this patient. I have also personally directed, reviewed, and agree with the discharge instructions and disposition. Disposition - Clinical Impression Clinical Impression: Chronic back pain, Abdominal pain, Colitis - Patient ED Disposition Is Patient to be Admitted: Yes Discussed With DrPaige: Vandana Vidales Doctor Will See Patient In The: Hospital Counseled Patient/Family Regarding: Studies Performed, Diagnosis - Disposition Disposition Time: 21:00 Condition: FAIR - Pt Status Changed To: Hospital Disposition Of: Observation - POA Present On Arrival: None
[2018-03-11 21:36] LABS: EOSINOPHIL 41 % (0-7); LYMPHOCYTE 23 % (20-50); MONOCYTE 3 % (0-10); NEUTROPHIL 33 % (42-75); PLATELET ESTIMATE NORMAL (NORMAL); TOTAL CELLS COUNTED 100
[2018-03-11 21:37] LABS: ANISOCYTOSIS SLIGHT; LARGE PLATELETS PRESENT; OVALOCYTES SLIGHT; TEARDROP CELLS SLIGHT
[2018-03-11 21:46] LABS: ALB/GLOB RATIO 0.9 (1.0-2.1); ALT/SGPT 39 U/L (21-72); AST/SGOT 41 U/L (17-59); BLOOD UREA NITROGEN 16 mg/dl (9-20); CALCIUM 7.7 mg/dL (8.4-10.2); GFR AFRICAN-AMERICAN > 60; GFR NON-AFRICAN AMERICAN > 60; LIPASE 59 U/L (23-300)
[2018-03-11] MEDS ORDERED: Albuterol 0.083% Inhal Sol (2.5 mg/3 mL) UD IH PRN (21:49)
--- NOTE | 2018-03-11 21:59 | CP.PCM.HP ---
History of Present Illness - History of Present Illness History of Present Illness: 42 y/o male with PMH of severe persistent asthma, gastritis, pancreatitis, vitiligo, NSTEMI and multifocal pneumonia, chronic back pain, recently diagnosed and being treated for colitis presents to ED complaining of persistent abdominal pain, associated with nausea, and vomiting. Patient was seen in ED on 03/09/18 due to similar symptoms, had a CT scan which reported colitis inflammatory vs infectious etiology, but when he was told that was going to be admitted he signed AMA. Reports abdominal pain is located in his stomach, and lower abdomen( hypogastrium) after heavy meals, no constant, no radiating, associated with nausea and multiple episodes of non bloody vomitus. This pain has been for more than one month, but worsening for the last 3 days. Also reports two daily episodes of non bloody diarrheas for 4 days. Denies fevers, chills, chest pain, SOB, dizziness, or other complains. Patient had endoscopy and colonoscopy done by GI specialist ( Dr. Heart on 03/02) for evaluation of his GI symptoms, and was found to have extensive inflammation of the colon, transverse colon ulceration, multiple non-bleeding duodenal ulcers, bleeding erosive gastropathy. Patient was sent home on Asacol, and Cipro/flagyl (x 2 wks). Patient reports good adherence to GI treatment. Has an oncoming appointment with GI on 03/19/18. PMD: [facility] PMH: asthma, gastritis, vitiligo, pancreatitis, NSTEMI and multifocal pneumonia PSH: Thermoplasty 4 times procedures, last one on november 2017. Cardic cath november 2017 at [facility] Allg: NKDA, reports; pollen allergy Meds: Albuterol, Nebulizer, Cimbicort, steroids, Omeprazole and tramadol SH: Patient reports social alcohol use, denies smoking or illicit drug use ( Urine drugs + for marijuana in past). Patient is unemployed, lives with and 2 daughters FH: Father, alive, hx of asthma and hypercholesterolemia. Mother, alive, hx of trigeminal neuralgia. Next of Kin: : Briana Avalos: [phone] Code status: Full code ED course: VS: stable Alert, wake, and oriented x 3 PE: CV: RRR, normal S1, S2 resp: CTA B/L, no rales, wheezing or rhonchi abd: soft, non distended, tender to deep palpation of epigastrium, and hypogastrium, no rebound, no guarding or rigidity ext: no edema Labs:CBC, CMP, lipase reviewed, significant for leukocytosis Present on Admission - Present on Admission Any Indicators Present on Admission: No History of DVT/PE: No History of Uncontrolled Diabetes: No Urinary Catheter: No Decubitus Ulcer Present: No Review of Systems - Review of Systems All systems: reviewed and no additional remarkable complaints except (as per HPI ) Past Patient History - Infectious Disease Hx of Infectious Diseases: None - Past Medical History & Family History Past Medical History?: Yes - Past Social History Smoking Status: Never Smoked - CARDIAC Hx Congestive Heart Failure: Yes - PULMONARY Hx Asthma: Yes Hx Chronic Obstructive Pulmonary Disease (COPD): Yes Hx Pneumonia: Yes - NEUROLOGICAL Hx Neurological Disorder: No - HEENT Hx HEENT Problems: No - RENAL Hx Chronic Kidney Disease: No - ENDOCRINE/METABOLIC Hx Endocrine Disorders: No - HEMATOLOGICAL/ONCOLOGICAL Hx Human Immunodeficiency Virus (HIV): No - INTEGUMENTARY Hx Dermatological Problems: No - MUSCULOSKELETAL/RHEUMATOLOGICAL Hx Musculoskeletal Disorders: No - GASTROINTESTINAL Hx Diverticulitis: Yes Hx Gastritis: Yes Hx Pancreatitis: Yes - GENITOURINARY/GYNECOLOGICAL Hx Genitourinary Disorders: No - PSYCHIATRIC Hx Psychophysiologic Disorder: No Hx Substance Use: No - SURGICAL HISTORY Hx Surgeries: Yes Other/Comment: I&D LEG ABSCESS - ANESTHESIA Hx Anesthesia: Yes Hx Anesthesia Reactions: No Hx Malignant Hyperthermia: No Meds Allergies/Adverse Reactions: Allergies Allergy/AdvReac Type Severity Reaction Status Date / Time No Known Allergies Allergy Verified 03/11/18 17:12 Physical Exam - Constitutional Appears: Non-toxic, No Acute Distress - Head Exam Head Exam: ATRAUMATIC, NORMOCEPHALIC - Eye Exam Eye Exam: Normal appearance, PERRL - ENT Exam ENT Exam: Mucous Membranes Dry - Respiratory Exam Respiratory Exam: Clear to Auscultation Bilateral, NORMAL BREATHING PATTERN. absent: Decreased Breath Sounds, Rales, Rhonchi, Wheezes, Respiratory Distress, Stridor - Cardiovascular Exam Cardiovascular Exam: REGULAR RHYTHM, +S1, +S2 - GI/Abdominal Exam GI & Abdominal Exam: Normal Bowel Sounds, Soft, Tenderness (hypogastrium, and epigastrium to deep palpation). absent: Distended, Guarding, Rebound, Rigid - Extremities Exam Extremities exam: Positive for: normal inspection. Negative for: calf tenderness, pedal edema - Back Exam Back exam: NORMAL INSPECTION. absent: CVA tenderness (L), CVA tenderness (R) - Neurological Exam Neurological exam: Alert, Oriented x3 - Skin Skin Exam: Dry, Intact, Warm Results - Vital Signs Recent Vital Signs: Last Vital Signs Temp 98.5 F 03/11/18 17:12 Pulse 98 H 03/11/18 17:12 Resp 20 03/11/18 17:12 BP 101/64 03/11/18 17:12 Pulse Ox 98 03/11/18 21:54 - Labs Result Diagrams: 03/11/18 20:00 03/11/18 20:47 Labs: Laboratory Results - last 24 hr 03/11/18 03/11/18 20:00 20:47 WBC 21.6 H RBC 4.67 Hgb 13.7 Hct 41.2 MCV 88.3 MCH 29.3 MCHC 33.2 RDW 15.0 H Plt Count 299 MPV 8.3 Neut % (Auto) 36.2 L Lymph % (Auto) 13.4 L [place] % (Auto) 5.2 Eos % (Auto) 44.5 H Baso % (Auto) 0.7 Neut # (Auto) 7.8 H Lymph # (Auto) 2.9 [place] # (Auto) 1.1 H Eos # (Auto) 9.6 H Baso # (Auto) 0.2 Neutrophils % (Manual) 33 L Lymphocytes % (Manual) 23 Monocytes % (Manual) 3 Eosinophils % (Manual) 41 H Platelet Estimate Normal Large Platelets Present Anisocytosis (manual) Slight Tear Drop Cells Slight Ovalocytes Slight Sodium 139 Potassium 3.5 L Chloride 104 Carbon Dioxide 26 Anion Gap 13 BUN 16 Creatinine 0.9 Est GFR ( Amer) > 60 Est GFR (Non-Af Amer) > 60 Random Glucose 97 Calcium 7.7 L Total Bilirubin 0.3 AST 41 ALT 39 Alkaline Phosphatase 124 Total Protein 6.2 L Albumin 3.0 L D Globulin 3.2 Albumin/Globulin Ratio 0.9 L Lipase 59 TSH 3rd Generation 0.88 Assessment & Plan - Assessment and Plan (Free Text) Assessment: 42 y/o male with PMH of severe persistent asthma, gastritis, pancreatitis, and recent diagnosed with colitis being admitted for persistent abdominal pain, N/V , and new onset diarrheas. Plan: Abdominal Pain -MedSurg unit -most machuca 2/2 extensive colonic inflammation 2/2 IBD vs infectious etiology -pain control PRN -start Zosyn 3.375 gm IV Q6 as (per GI recommendations) -hold Cipro and flagyl for now while in Zosyn (as per GI recs)( started on x 2 weeks) -Start IV fluids LR 125 ml/hr -c/w Asacol 800 mg po TID( ordered on 03/02/18 to take for 6 weeks) -can start diet as per GI in addition to IV fluids -leukocytosis, chronic -lipase normal on admission -GI was consulted in ER, case discussed with Dr. Blackwell, GI fellow covering by Dr. Heart. Recommendations are appreciated. -Endoscopy as Colonoscopy done by GI, Dr. Haert on 03/02/18 -Avoid aspirin, ibuprofen and other NSAIDs x 12 weeks as per GI Acute Diarrheas -could be 2/2 Colitis vs Antibiotics effects vs Both -f/u Stool cultures -f/u C-diff Toxin -f/u Blood Cx done in ER Leukocytosis -persistent, chronic -possible 2/2 persistent inflammatory colonic condition -no on prednisone at this time -f/u CBC in AM H/O Severe persistent Asthma -controlled with current treatment -c/w home Fluticasone/salmeterol BID -Albuterol inh PRN DVT prophylaxis -lovenox 40 mg SC - Date & Time Date: 03/11/18 Time: 21:55
[2018-03-11] MEDS ORDERED: Lactated Ringer's 1,000 ML IV SCH (22:00)
[2018-03-11] MEDS: Piperacillin/Tazobact 3.375 GM in Sodium Chloride 0.9% 100 ML IVPB SCH (22:31)
[2018-03-11] MEDS ORDERED: Piperacillin/Tazobact 3.375 gm Inj IVPB ONE (22:31)
[2018-03-12] MEDS: Fluticasone-Salmeterol 500-50mcg Diskus INH SCH ×3 (00:30→17:35)
[2018-03-12] MEDS: Piperacillin/Tazobact 3.375 GM in Sodium Chloride 0.9% 100 ML IVPB SCH ×4 (03:32→22:20)
[2018-03-12] MEDS ORDERED: Potassium Chloride 20 mEq ER Tab PO ONE (06:03)
[2018-03-12] MEDS: Lactated Ringer's 1,000 ML IV SCH ×2 (06:15→09:01)
[2018-03-12 06:33] LABS: BASO # 0.1 K/uL (0.0-0.2); BASO % 0.6 % (0.0-2.0); EOS # 7.7 K/uL (0.0-0.7); HEMOGLOBIN 12.9 g/dL (12.0-18.0); LYMPH # 3.1 K/uL (1.0-4.3); LYMPH % 16.2 % (20.0-40.0); MEAN CELL VOLUME 88.4 fl (80.0-94.0); MEAN CORPUSCULAR HEMOGLOBIN 28.7 pg (27.0-31.0); MEAN CORPUSCULAR HGB CONC 32.5 g/dL (33.0-37.0); MEAN PLATELET VOLUME 8.5 fl (7.2-11.7); MONO # 1.2 K/uL (0.0-0.8); MONO % 6.3 % (0.0-10.0); NEUT # 6.8 K/uL (1.8-7.0); NEUT % 35.9 % (50.0-75.0); PLATELET COUNT 281 K/uL (130-400); RBC 4.49 Mil/uL (4.40-5.90); RED CELL DISTRIBUTION WIDTH 14.7 % (11.5-14.5); WHITE BLOOD COUNT 18.8 K/uL (4.8-10.8)
[2018-03-12 08:01] LABS: BLOOD UREA NITROGEN 11 mg/dl (9-20); CALCIUM 7.9 mg/dL (8.4-10.2); GFR AFRICAN-AMERICAN > 60; GFR NON-AFRICAN AMERICAN > 60
[2018-03-12] MEDS ORDERED: ASACOL HD PO SCH (09:00)
[2018-03-12] MEDS: Pantoprazole 40 mg EC Tab PO SCH (09:02)
[2018-03-12] MEDS: Enoxaparin 40 mg Syringe SC SCH ×2 (09:02→09:08)
[2018-03-12 09:40] LABS: URINE BILIRUBIN NEGATIVE (NEGATIVE); URINE BLOOD SMALL (NEGATIVE); URINE CLARITY CLEAR (Clear); URINE COLOR YELLOW (YELLOW); URINE GLUCOSE (UA) NEG (Normal); URINE LEUKOCYTE ESTERASE TRACE Leu/uL (Negative); URINE PROTEIN NEGATIVE (NEGATIVE); URINE UROBILINOGEN 0.2-1.0 mg/dL (0.2-1.0)
[2018-03-12 10:41] LABS: BANDS 1 % (0-2); EOSINOPHIL 30 % (0-7); LYMPHOCYTE 20 % (20-50); MONOCYTE 3 % (0-10); NEUTROPHIL 45 % (42-75); PLATELET ESTIMATE NORMAL (NORMAL); REACTIVE LYMPHOCYTES 1 % (0-0); TOTAL CELLS COUNTED 100
[2018-03-12 10:42] LABS: ANISOCYTOSIS SLIGHT
[2018-03-12 10:43] LABS: GIANT PLATELETS PRESENT; LARGE PLATELETS PRESENT
--- NOTE | 2018-03-12 14:30 | CP.PCM.PN ---
Subjective - Date & Time of Evaluation Date of Evaluation: 03/12/18 Time of Evaluation: 09:00 - Subjective Subjective: Patient seen and examined at bedside, NAD, denies N/V/D, palpiations, SOB or chest pain this morning, c/o persistent abdominal pain back pain, states that the abdominal pain is better today. Objective - Vital Signs/Intake and Output Vital Signs (last 24 hours): Temp Pulse Resp BP Pulse Ox 98.3 F 85 20 107/73 94 L 03/12/18 07:59 03/12/18 07:59 03/12/18 07:59 03/12/18 07:59 03/12/18 07:59 - Medications Medications: Current Medications Acetaminophen (Tylenol 325mg Tab) 650 mg PO Q6 PRN PRN Reason: Pain, Mild (1-3) Albuterol Sulfate (Albuterol 0.083% Inhal Cassidy (2.5 Mg/3 Ml) Ud) 3 mg IH RQ6 PRN PRN Reason: Shortness of Breath Enoxaparin Sodium (Lovenox) 40 mg SC DAILY DARIEL PRN Reason: Protocol Last Admin: 03/12/18 09:08 Dose: Not Given Home Med (Patient's Own Medication) 1,600 unit PO TID [facility] Piperacillin Sod/Tazobactam (Sod 3.375 gm/ Sodium Chloride) 100 mls @ 100 mls/ hr IVPB Q6 DARIEL PRN Reason: Protocol Last Admin: 03/12/18 09:01 Dose: 100 mls/hr Morphine Sulfate (Morphine) 2 mg IVP Q4 PRN PRN Reason: Pain, moderate (4-7) Last Admin: 03/12/18 03:26 Dose: 2 mg Morphine Sulfate (Morphine) 4 mg IVP Q4 PRN PRN Reason: Pain, severe (8-10) Last Admin: 03/12/18 09:12 Dose: 4 mg Ondansetron HCl (Zofran Inj) 4 mg IVP Q6 PRN PRN Reason: Nausea/Vomiting Pantoprazole Sodium (Protonix Ec Tab) 40 mg PO DAILY [facility] Last Admin: 03/12/18 09:02 Dose: 40 mg Fluticasone/Salmeterol (Advair Diskus 500/50) 1 puff INH BID [facility] Last Admin: 03/12/18 09:02 Dose: 1 puff - Labs Labs: 03/12/18 06:00 03/12/18 06:00 - Constitutional Appears: No Acute Distress - Head Exam Head Exam: ATRAUMATIC, NORMOCEPHALIC - Eye Exam Eye Exam: EOMI, PERRL - ENT Exam ENT Exam: Mucous Membranes Moist - Neck Exam Neck Exam: Full ROM - Respiratory Exam Respiratory Exam: Clear to Ausculation Bilateral. absent: Rales, Rhonchi, Wheezes - Cardiovascular Exam Cardiovascular Exam: REGULAR RHYTHM, +S1, +S2 - GI/Abdominal Exam GI & Abdominal Exam: Soft, Tenderness (to palpation of the hypogastric and both lower quadrants), Normal Bowel Sounds - Extremities Exam Extremities Exam: Full ROM, Normal Inspection. absent: Pedal Edema - Back Exam Back Exam: NORMAL INSPECTION. absent: CVA tenderness (L), CVA tenderness (R) - Neurological Exam Neurological Exam: Alert, Awake, Oriented x3 - Psychiatric Exam Psychiatric exam: Normal Affect, Normal Mood - Skin Skin Exam: Normal Color, Warm Assessment and Plan - Assessment and Plan (Free Text) Assessment: 42 y/o male with PMH of asthma, vitiligo, chronic back pain, gastritis, pancreatitis, recently diagnosed with colitis with f/u by GI, admitted yesterday for worsening persistent abdominal pain. Plan: Abdominal pain -MedSurg unit -brigette 2/2 IBD vs infectious cause -pain control PRN -Zosyn 3.375 gm IV Q6 as (per GI recommendations) -hold Cipro and flagyl for now while in Zosyn (as per GI recs)( started on x 2 weeks) -Start IV fluids LR 125 ml/hr -c/w Asacol 1600 mg po TID as per GI -can start diet as per GI in addition to IV fluids -leukocytosis, chronic -lipase normal on admission -GI consulted in ER, GI f/u on board. -Endoscopy as Colonoscopy done by GI, Dr. Heart on 03/02/18 -Avoid aspirin, ibuprofen and other NSAIDs x 12 weeks as per GI Acute Diarrheas -denied symptom today -could be 2/2 likely IBD -f/u Stool cultures -f/u Blood Cx done in ER Leukocytosis -persistent, chronic -wbc today 18.8 -possible 2/2 persistent inflammatory colonic condition -Steroids to be resumed -f/u CBC in AM H/O Severe persistent Asthma -controlled with current treatment -c/w home Fluticasone/salmeterol BID -Albuterol inh PRN DVT prophylaxis -lovenox 40 mg SC
--- NOTE | 2018-03-12 14:43 | CP.PCM.CON ---
<Ming Blackwell - Last Filed: 03/12/18 14:43> History of Present Illness - History of Present Illness History of Present Illness: PGY5 Initial GI Consult Joaquin Avalos is a 42M w/ hx of severe persistent asthma, gastritis, pancreatitis , vitiligo, NSTEMI and multifocal pneumonia, chronic back pain who presented to the ED complaining of persistent abdominal pain and back pain. He also notes associated nausea, and vomiting. He had an EGD and colonoscopy for evaluation of similar GI symptoms, and was found to have extensive inflammation of the colon, transverse colon ulceration, multiple non-bleeding duodenal ulcers, bleeding erosive gastropathy. Differentials at that time included IBD, infectous etiology. Patient was sent home on Asacol, and Cipro/flagyl (x 2 wks) . Patient reports good adherence to GI treatment. Patient was seen in ED on due to similar symptoms, had a CT scan which reported colitis, but he signed out AMA. Reports abdominal pain is located in his stomach, and lower abdomen( hypogastrium) after heavy meals, no constant, no radiating, associated with nausea and He now reported multiple episodes of non bloody vomitus with worsening abd pain for 3 days in the periumbical area. Patient had Has an oncoming appointment with GI on 03/19/18. PMH: asthma, gastritis, vitiligo, pancreatitis, NSTEMI and multifocal pneumonia PSH: Thermoplasty 4 times procedures, last one on november 2017. Cardic cath november 2017 at [facility] SH: Patient reports social alcohol use, denies smoking or illicit drug use ( Urine drugs + for marijuana in past). Patient is unemployed, lives with and 2 daughters FH: Father, alive, hx of asthma and hypercholesterolemia. Mother, alive, hx of trigeminal neuralgia. ROS: 12 point ROS conducted, neg other than above Past Patient History - Infectious Disease Hx of Infectious Diseases: None - Past Medical History & Family History Past Medical History?: Yes - Past Social History Smoking Status: Never Smoked - CARDIAC Hx Congestive Heart Failure: Yes - PULMONARY Hx Asthma: Yes Hx Chronic Obstructive Pulmonary Disease (COPD): Yes Hx Pneumonia: Yes - NEUROLOGICAL Hx Neurological Disorder: No - HEENT Hx HEENT Problems: No - RENAL Hx Chronic Kidney Disease: No - ENDOCRINE/METABOLIC Hx Endocrine Disorders: No - HEMATOLOGICAL/ONCOLOGICAL Hx Human Immunodeficiency Virus (HIV): No - INTEGUMENTARY Hx Dermatological Problems: No - MUSCULOSKELETAL/RHEUMATOLOGICAL Hx Musculoskeletal Disorders: No - GASTROINTESTINAL Hx Diverticulitis: Yes Hx Gastritis: Yes Hx Pancreatitis: Yes - GENITOURINARY/GYNECOLOGICAL Hx Genitourinary Disorders: No - PSYCHIATRIC Hx Psychophysiologic Disorder: No Hx Substance Use: No - SURGICAL HISTORY Hx Surgeries: Yes Other/Comment: I&D LEG ABSCESS - ANESTHESIA Hx Anesthesia: Yes Hx Anesthesia Reactions: No Hx Malignant Hyperthermia: No Meds Allergies/Adverse Reactions: Allergies Allergy/AdvReac Type Severity Reaction Status Date / Time No Known Allergies Allergy Verified 03/11/18 17:12 - Medications Medications: Current Medications Acetaminophen (Tylenol 325mg Tab) 650 mg PO Q6 PRN PRN Reason: Pain, Mild (1-3) Albuterol Sulfate (Albuterol 0.083% Inhal Cassidy (2.5 Mg/3 Ml) Ud) 3 mg IH RQ6 PRN PRN Reason: Shortness of Breath Enoxaparin Sodium (Lovenox) 40 mg SC DAILY [facility] PRN Reason: Protocol Last Admin: 03/12/18 09:08 Dose: Not Given Home Med (Patient's Own Medication) 1,600 unit PO TID [facility] Piperacillin Sod/Tazobactam (Sod 3.375 gm/ Sodium Chloride) 100 mls @ 100 mls/ hr IVPB Q6 [facility] PRN Reason: Protocol Last Admin: 03/12/18 09:01 Dose: 100 mls/hr Morphine Sulfate (Morphine) 2 mg IVP Q4 PRN PRN Reason: Pain, moderate (4-7) Last Admin: 03/12/18 03:26 Dose: 2 mg Morphine Sulfate (Morphine) 4 mg IVP Q4 PRN PRN Reason: Pain, severe (8-10) Last Admin: 03/12/18 09:12 Dose: 4 mg Ondansetron HCl (Zofran Inj) 4 mg IVP Q6 PRN PRN Reason: Nausea/Vomiting Pantoprazole Sodium (Protonix Ec Tab) 40 mg PO DAILY [facility] Last Admin: 03/12/18 09:02 Dose: 40 mg Fluticasone/Salmeterol (Advair Diskus 500/50) 1 puff INH BID [facility] Last Admin: 03/12/18 09:02 Dose: 1 puff Physical Exam - Constitutional Appears: Well, No Acute Distress - Head Exam Head Exam: ATRAUMATIC, NORMOCEPHALIC - Eye Exam Eye Exam: Normal appearance - ENT Exam ENT Exam: Mucous Membranes Moist, Normal Exam - Neck Exam Neck exam: Positive for: Normal Inspection - Respiratory Exam Respiratory Exam: Clear to Auscultation Bilateral, NORMAL BREATHING PATTERN. absent: Rales, Rhonchi, Wheezes, Respiratory Distress - Cardiovascular Exam Cardiovascular Exam: REGULAR RHYTHM, +S1, +S2 - GI/Abdominal Exam GI & Abdominal Exam: Normal Bowel Sounds, Soft. absent: Distended, Firm, Guarding, Hernia, Organomegaly, Pulsatile Mass, Rebound, Rigid, Tenderness - Extremities Exam Extremities exam: Negative for: joint swelling, pedal edema - Neurological Exam Neurological exam: Alert, Oriented x3 - Psychiatric Exam Psychiatric exam: Normal Affect, Normal Mood - Skin Skin Exam: Dry, Intact, Warm Additional comments: vitilago Results - Vital Signs Recent Vital Signs: Last Vital Signs Temp 98.3 F 03/12/18 07:59 Pulse 85 03/12/18 07:59 Resp 20 03/12/18 07:59 BP 107/73 03/12/18 07:59 Pulse Ox 94 L 03/12/18 07:59 - Labs Result Diagrams: 03/12/18 06:00 03/12/18 06:00 Labs: Laboratory Results - last 24 hr 03/11/18 03/11/18 03/12/18 20:00 20:47 06:00 WBC 21.6 H 18.8 H RBC 4.67 4.49 Hgb 13.7 12.9 Hct 41.2 39.7 MCV 88.3 88.4 MCH 29.3 28.7 MCHC 33.2 32.5 L RDW 15.0 H 14.7 H Plt Count 299 281 MPV 8.3 8.5 Neut % (Auto) 36.2 L 35.9 L Lymph % (Auto) 13.4 L 16.2 L Leake % (Auto) 5.2 6.3 Eos % (Auto) 44.5 H 41.0 H Baso % (Auto) 0.7 0.6 Neut # (Auto) 7.8 H 6.8 Lymph # (Auto) 2.9 3.1 Leake # (Auto) 1.1 H 1.2 H Eos # (Auto) 9.6 H 7.7 H Baso # (Auto) 0.2 0.1 Neutrophils % (Manual) 33 L 45 Band Neutrophils % 1 Lymphocytes % (Manual) 23 20 Reactive Lymphs % 1 H Monocytes % (Manual) 3 3 Eosinophils % (Manual) 41 H 30 H Platelet Estimate Normal Normal Large Platelets Present Present Giant Platelets Present Anisocytosis (manual) Slight Slight Tear Drop Cells Slight Ovalocytes Slight Sodium 139 Potassium 3.5 L Chloride 104 Carbon Dioxide 26 Anion Gap 13 BUN 16 Creatinine 0.9 Est GFR ( Amer) > 60 Est GFR (Non-Af Amer) > 60 Random Glucose 97 Calcium 7.7 L Total Bilirubin 0.3 AST 41 ALT 39 Alkaline Phosphatase 124 Total Protein 6.2 L Albumin 3.0 L D Globulin 3.2 Albumin/Globulin Ratio 0.9 L Lipase 59 TSH 3rd Generation 0.88 Urine Color Urine Clarity Urine pH Ur Specific Graham Urine Protein Urine Glucose (UA) Urine Ketones Urine Blood Urine Nitrate Urine Bilirubin Urine Urobilinogen Ur Leukocyte Esterase Urine RBC (Auto) Urine Microscopic WBC 03/12/18 03/12/18 06:00 06:00 WBC RBC Hgb Hct MCV MCH MCHC RDW Plt Count MPV Neut % (Auto) Lymph % (Auto) Leake % (Auto) Eos % (Auto) Baso % (Auto) Neut # (Auto) Lymph # (Auto) Leake # (Auto) Eos # (Auto) Baso # (Auto) Neutrophils % (Manual) Band Neutrophils % Lymphocytes % (Manual) Reactive Lymphs % Monocytes % (Manual) Eosinophils % (Manual) Platelet Estimate Large Platelets Giant Platelets Anisocytosis (manual) Tear Drop Cells Ovalocytes Sodium 139 Potassium 3.6 Chloride 104 Carbon Dioxide 28 Anion Gap 11 BUN 11 Creatinine 1.1 Est GFR ( Amer) > 60 Est GFR (Non-Af Amer) > 60 Random Glucose 80 Calcium 7.9 L Total Bilirubin AST ALT Alkaline Phosphatase Total Protein Albumin Globulin Albumin/Globulin Ratio Lipase TSH 3rd Generation Urine Color Yellow Urine Clarity Clear Urine pH 5.0 Ur Specific Graham 1.011 Urine Protein Negative Urine Glucose (UA) Neg Urine Ketones Negative Urine Blood Small Urine Nitrate Negative Urine Bilirubin Negative Urine Urobilinogen 0.2-1.0 Ur Leukocyte Esterase Trace Urine RBC (Auto) 2 Urine Microscopic WBC 1 Assessment & Plan - Assessment and Plan (Free Text) Assessment: Joaquin Avalos is a 42M w/ hx of severe persistent asthma, gastritis, pancreatitis , vitiligo, NSTEMI and multifocal pneumonia, chronic back pain who presented to the ED complaining of persistent abdominal pain and back pain. Colitis, etiology likely IBD, r/o infectous etiology Nausea/vomiting, improved Chronic back pain Diarrhea, likely 2/2 IBD, r/o infectous etiology Gastritis Plan: -advance diet as tolerated -recommend r/o infectous stool etiology, ie c.diff -stool culture, ova& P -hepatitis panel -gold quant -of infectoous w/u neg, will start IV steroids for induction -blood cultures pending -continue zosyn 3.375g q 6hrs -no indication for repeat endoscopy at this time D/W Dr. Heart <Naren Heart - Last Filed: 03/12/18 15:46> Meds - Medications Medications: Current Medications Acetaminophen (Tylenol 325mg Tab) 650 mg PO Q6 PRN PRN Reason: Pain, Mild (1-3) Albuterol Sulfate (Albuterol 0.083% Inhal Cassidy (2.5 Mg/3 Ml) Ud) 3 mg IH RQ6 PRN PRN Reason: Shortness of Breath Enoxaparin Sodium (Lovenox) 40 mg SC DAILY [facility] PRN Reason: Protocol Last Admin: 03/12/18 09:08 Dose: Not Given Home Med (Patient's Own Medication) 1,600 unit PO TID [facility] Piperacillin Sod/Tazobactam (Sod 3.375 gm/ Sodium Chloride) 100 mls @ 100 mls/ hr IVPB Q6 [facility] PRN Reason: Protocol Last Admin: 03/12/18 09:01 Dose: 100 mls/hr Morphine Sulfate (Morphine) 2 mg IVP Q4 PRN PRN Reason: Pain, moderate (4-7) Last Admin: 03/12/18 03:26 Dose: 2 mg Morphine Sulfate (Morphine) 4 mg IVP Q4 PRN PRN Reason: Pain, severe (8-10) Last Admin: 03/12/18 09:12 Dose: 4 mg Ondansetron HCl (Zofran Inj) 4 mg IVP Q6 PRN PRN Reason: Nausea/Vomiting Pantoprazole Sodium (Protonix Ec Tab) 40 mg PO DAILY [facility] Last Admin: 03/12/18 09:02 Dose: 40 mg Fluticasone/Salmeterol (Advair Diskus 500/50) 1 puff INH BID [facility] Last Admin: 03/12/18 09:02 Dose: 1 puff Results - Vital Signs Recent Vital Signs: Last Vital Signs Temp 98.3 F 03/12/18 07:59 Pulse 85 03/12/18 07:59 Resp 20 03/12/18 07:59 BP 107/73 03/12/18 07:59 Pulse Ox 94 L 03/12/18 07:59 - Labs Result Diagrams: 03/12/18 06:00 03/12/18 06:00 Labs: Laboratory Results - last 24 hr 03/11/18 03/11/18 03/12/18 20:00 20:47 06:00 WBC 21.6 H 18.8 H RBC 4.67 4.49 Hgb 13.7 12.9 Hct 41.2 39.7 MCV 88.3 88.4 MCH 29.3 28.7 MCHC 33.2 32.5 L RDW 15.0 H 14.7 H Plt Count 299 281 MPV 8.3 8.5 Neut % (Auto) 36.2 L 35.9 L Lymph % (Auto) 13.4 L 16.2 L Leake % (Auto) 5.2 6.3 Eos % (Auto) 44.5 H 41.0 H Baso % (Auto) 0.7 0.6 Neut # (Auto) 7.8 H 6.8 Lymph # (Auto) 2.9 3.1 Leake # (Auto) 1.1 H 1.2 H Eos # (Auto) 9.6 H 7.7 H Baso # (Auto) 0.2 0.1 Neutrophils % (Manual) 33 L 45 Band Neutrophils % 1 Lymphocytes % (Manual) 23 20 Reactive Lymphs % 1 H Monocytes % (Manual) 3 3 Eosinophils % (Manual) 41 H 30 H Platelet Estimate Normal Normal Large Platelets Present Present Giant Platelets Present Anisocytosis (manual) Slight Slight Tear Drop Cells Slight Ovalocytes Slight Sodium 139 Potassium 3.5 L Chloride 104 Carbon Dioxide 26 Anion Gap 13 BUN 16 Creatinine 0.9 Est GFR ( Amer) > 60 Est GFR (Non-Af Amer) > 60 Random Glucose 97 Calcium 7.7 L Total Bilirubin 0.3 AST 41 ALT 39 Alkaline Phosphatase 124 Total Protein 6.2 L Albumin 3.0 L D Globulin 3.2 Albumin/Globulin Ratio 0.9 L Lipase 59 TSH 3rd Generation 0.88 Urine Color Urine Clarity Urine pH Ur Specific Graham Urine Protein Urine Glucose (UA) Urine Ketones Urine Blood Urine Nitrate Urine Bilirubin Urine Urobilinogen Ur Leukocyte Esterase Urine RBC (Auto) Urine Microscopic WBC 03/12/18 03/12/18 06:00 06:00 WBC RBC Hgb Hct MCV MCH MCHC RDW Plt Count MPV Neut % (Auto) Lymph % (Auto) Leake % (Auto) Eos % (Auto) Baso % (Auto) Neut # (Auto) Lymph # (Auto) Leake # (Auto) Eos # (Auto) Baso # (Auto) Neutrophils % (Manual) Band Neutrophils % Lymphocytes % (Manual) Reactive Lymphs % Monocytes % (Manual) Eosinophils % (Manual) Platelet Estimate Large Platelets Giant Platelets Anisocytosis (manual) Tear Drop Cells Ovalocytes Sodium 139 Potassium 3.6 Chloride 104 Carbon Dioxide 28 Anion Gap 11 BUN 11 Creatinine 1.1 Est GFR ( Amer) > 60 Est GFR (Non-Af Amer) > 60 Random Glucose 80 Calcium 7.9 L Total Bilirubin AST ALT Alkaline Phosphatase Total Protein Albumin Globulin Albumin/Globulin Ratio Lipase TSH 3rd Generation Urine Color Yellow Urine Clarity Clear Urine pH 5.0 Ur Specific Graham 1.011 Urine Protein Negative Urine Glucose (UA) Neg Urine Ketones Negative Urine Blood Small Urine Nitrate Negative Urine Bilirubin Negative Urine Urobilinogen 0.2-1.0 Ur Leukocyte Esterase Trace Urine RBC (Auto) 2 Urine Microscopic WBC 1 Attending/Attestation - Attestation I have personally seen and examined this patient.: Yes I have fully participated in the care of the patient.: Yes I have reviewed all pertinent clinical information: Yes Notes (Text): 03/12/18 15:43 Patient seen with GI fellow this am. This is a 42 yr old M with history of severe persistent asthma, gastritis, pancreatitis, vitiligo, NSTEMI and multifocal pneumonia, chronic back pain with recent colonoscopy two weeks ago showing multiple abscesses and ulcerations in the colon with skip lesions, not able to intubate the terminal ileum. differential diagnosis was IBD vs eosinophilic colitis. He was sent home on cipro and flagyl and asacol. He started to have abdominal pain and back pain and presented to ER yesterday. Complains of non bloody diarrhea. Stool infectious work up pending. If quantiferon negative will start steroid infusion. diet as tolerated. Blood cultures. Continue zosyn.
[2018-03-12 20:32] LABS: HEPATITIS B SURFACE AG Negative (NEGATIVE)
[2018-03-12 20:38] LABS: HEPATITIS A IGM NEGATIVE (NEGATIVE); HEPATITIS B CORE AB NEGATIVE (NEGATIVE)
[2018-03-12 20:49] LABS: HEPATITIS C ANTIBODY NEGATIVE (NEGATIVE)
[2018-03-13] MEDS: Piperacillin/Tazobact 3.375 GM in Sodium Chloride 0.9% 100 ML IVPB SCH ×2 (03:54→09:02)
--- NOTE | 2018-03-13 07:35 | CP.PCM.PN ---
Subjective - Date & Time of Evaluation Date of Evaluation: 03/13/18 Time of Evaluation: 07:35 - Subjective Subjective: pt seen and examined at bedside, no acute changes overnight. Still complaining of mild abdominal pain. Tolerating PO intake w/o difficulty. Diarrhea resolved. Afebrile, no other complaints. Objective - Vital Signs/Intake and Output Vital Signs (last 24 hours): Temp Pulse Resp BP Pulse Ox 98.5 F 97 H 18 102/69 95 03/13/18 00:04 03/13/18 00:04 03/13/18 00:04 03/13/18 00:04 03/13/18 00:04 - Medications Medications: Current Medications Acetaminophen (Tylenol 325mg Tab) 650 mg PO Q6 PRN PRN Reason: Pain, Mild (1-3) Last Admin: 03/13/18 03:59 Dose: 650 mg Albuterol Sulfate (Albuterol 0.083% Inhal Cassidy (2.5 Mg/3 Ml) Ud) 3 mg IH RQ6 PRN PRN Reason: Shortness of Breath Enoxaparin Sodium (Lovenox) 40 mg SC DAILY [facility] PRN Reason: Protocol Last Admin: 03/12/18 09:08 Dose: Not Given Home Med (Patient's Own Medication) 1,600 unit PO TID [facility] Piperacillin Sod/Tazobactam (Sod 3.375 gm/ Sodium Chloride) 100 mls @ 100 mls/ hr IVPB Q6 [facility] PRN Reason: Protocol Last Admin: 03/13/18 03:54 Dose: 100 mls/hr Morphine Sulfate (Morphine) 2 mg IVP Q4 PRN PRN Reason: Pain, moderate (4-7) Last Admin: 03/12/18 03:26 Dose: 2 mg Morphine Sulfate (Morphine) 4 mg IVP Q4 PRN PRN Reason: Pain, severe (8-10) Last Admin: 03/13/18 01:14 Dose: 4 mg Ondansetron HCl (Zofran Inj) 4 mg IVP Q6 PRN PRN Reason: Nausea/Vomiting Pantoprazole Sodium (Protonix Ec Tab) 40 mg PO DAILY [facility] Last Admin: 03/12/18 09:02 Dose: 40 mg Fluticasone/Salmeterol (Advair Diskus 500/50) 1 puff INH BID [facility] Last Admin: 03/12/18 17:35 Dose: 1 puff - Labs Labs: 03/12/18 06:00 03/12/18 06:00 - Constitutional Appears: Non-toxic, No Acute Distress - Head Exam Head Exam: ATRAUMATIC, NORMOCEPHALIC - Eye Exam Eye Exam: EOMI Pupil Exam: NORMAL ACCOMODATION, PERRL - ENT Exam ENT Exam: Mucous Membranes Moist - Neck Exam Neck Exam: Full ROM - Respiratory Exam Respiratory Exam: Clear to Ausculation Bilateral, NORMAL BREATHING PATTERN. absent: Accessory Muscle Use, Rales, Rhonchi, Wheezes, Respiratory Distress - Cardiovascular Exam Cardiovascular Exam: REGULAR RHYTHM, RRR, +S1, +S2. absent: Bradycardia, Tachycardia - GI/Abdominal Exam GI & Abdominal Exam: Soft, Tenderness (mild diffuse tenderness, improved ), Normal Bowel Sounds. absent: Distended, Firm, Guarding, Rigid, Rebound - Extremities Exam Extremities Exam: Full ROM, Normal Capillary Refill, Normal Inspection. absent : Pedal Edema - Neurological Exam Neurological Exam: Alert, Awake, CN II-XII Intact, Normal Gait, Oriented x3 - Psychiatric Exam Psychiatric exam: Normal Affect, Normal Mood - Skin Skin Exam: Intact, Warm Additional comments: generalized vitligo Assessment and Plan - Assessment and Plan (Free Text) Assessment: 42 y/o male with a PMHx of asthma, vitiligo, chronic back pain, gastritis, pancreatitis, recently diagnosed with colitis, admitted for worsening abdominal pain. 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
[2018-03-13 08:04] VITALS: BP 91/58; PULSE 89; RESP 19; TEMP 97.6; O2SAT 94
[2018-03-13 08:48] LABS: MEAN CELL VOLUME 87.3 fl (80.0-94.0); MEAN CORPUSCULAR HEMOGLOBIN 29.2 pg (27.0-31.0); MEAN CORPUSCULAR HGB CONC 33.4 g/dL (33.0-37.0); RBC 4.79 Mil/uL (4.40-5.90); RED CELL DISTRIBUTION WIDTH 14.9 % (11.5-14.5); WHITE BLOOD COUNT 18.2 K/uL (4.8-10.8)
[2018-03-13] MEDS ORDERED: POLYETHYLENE GLYCOL 3350 17 GM/Dose PACKET PO SCH (09:00)
[2018-03-13] MEDS: Enoxaparin 40 mg Syringe SC SCH (09:01)
[2018-03-13] MEDS: Pantoprazole 40 mg EC Tab PO SCH (09:01)
[2018-03-13] MEDS: Fluticasone-Salmeterol 500-50mcg Diskus INH SCH (09:01)
[2018-03-13 09:46] LABS: ALB/GLOB RATIO 0.9 (1.0-2.1); ALBUMIN 3.3 g/dL (3.5-5.0); ALT/SGPT 52 U/L (21-72); AST/SGOT 82 U/L (17-59); BLOOD UREA NITROGEN 7 mg/dl (9-20); CALCIUM 8.6 mg/dL (8.4-10.2); GFR AFRICAN-AMERICAN > 60; GFR NON-AFRICAN AMERICAN > 60
--- NOTE | 2018-03-13 15:06 | CP.PCM.DIS ---
Provider - Provider Date of Admission: 03/11/18 21:23 Attending physician: Vandana Vidales MD Time Spent in preparation of Discharge (in minutes): 35 Diagnosis - Discharge Diagnosis (1) Eosinophilic colitis Status: Acute Hospital Course - Lab Results Lab Results: Micro Results 03/11/18 20:55 Blood-Venous Blood Culture - Preliminary NO GROWTH AFTER 24 HOURS 03/11/18 20:47 Blood-Venous Blood Culture - Preliminary NO GROWTH AFTER 24 HOURS Most Recent Lab Values WBC 18.2 K/uL (4.8-10.8) H 03/13/18 07:22 RBC 4.79 Mil/uL (4.40-5.90) 03/13/18 07:22 Hgb 14.0 g/dL (12.0-18.0) 03/13/18 07:22 Hct 41.8 % (35.0-51.0) 03/13/18 07:22 MCV 87.3 fl (80.0-94.0) 03/13/18 07:22 MCH 29.2 pg (27.0-31.0) 03/13/18 07:22 MCHC 33.4 g/dL (33.0-37.0) 03/13/18 07:22 RDW 14.9 % (11.5-14.5) H 03/13/18 07:22 Plt Count 307 K/uL (130-400) 03/13/18 07:22 MPV 8.5 fl (7.2-11.7) 03/12/18 06:00 Neut % (Auto) 35.9 % (50.0-75.0) L 03/12/18 06:00 Lymph % (Auto) 16.2 % (20.0-40.0) L 03/12/18 06:00 Dubois % (Auto) 6.3 % (0.0-10.0) 03/12/18 06:00 Eos % (Auto) 41.0 % (0.0-4.0) H 03/12/18 06:00 Baso % (Auto) 0.6 % (0.0-2.0) 03/12/18 06:00 Neut # (Auto) 6.8 K/uL (1.8-7.0) 03/12/18 06:00 Lymph # (Auto) 3.1 K/uL (1.0-4.3) 03/12/18 06:00 Dubois # (Auto) 1.2 K/uL (0.0-0.8) H 03/12/18 06:00 Eos # (Auto) 7.7 K/uL (0.0-0.7) H 03/12/18 06:00 Baso # (Auto) 0.1 K/uL (0.0-0.2) 03/12/18 06:00 Neutrophils % (Manual) 45 % (42-75) 03/12/18 06:00 Band Neutrophils % 1 % (0-2) 03/12/18 06:00 Lymphocytes % (Manual) 20 % (20-50) 03/12/18 06:00 Reactive Lymphs % 1 % (0-0) H 03/12/18 06:00 Monocytes % (Manual) 3 % (0-10) 03/12/18 06:00 Eosinophils % (Manual) 30 % (0-7) H 03/12/18 06:00 Platelet Estimate Normal (NORMAL) 03/12/18 06:00 Large Platelets Present 03/12/18 06:00 Giant Platelets Present 03/12/18 06:00 Anisocytosis (manual) Slight 03/12/18 06:00 Tear Drop Cells Slight 03/11/18 20:00 Ovalocytes Slight 03/11/18 20:00 Sodium 135 mmol/l (132-148) 03/13/18 07:22 Potassium 4.0 MMOL/L (3.6-5.0) 03/13/18 07:22 Chloride 99 mmol/L (98-107) 03/13/18 07:22 Carbon Dioxide 26 mmol/L (22-30) 03/13/18 07:22 Anion Gap 14 (10-20) 03/13/18 07:22 BUN 7 mg/dl (9-20) L 03/13/18 07:22 Creatinine 1.2 mg/dl (0.8-1.5) 03/13/18 07:22 Est GFR ( Amer) > 60 03/13/18 07:22 Est GFR (Non-Af Amer) > 60 03/13/18 07:22 Random Glucose 75 mg/dL (75-110) 03/13/18 07:22 Calcium 8.6 mg/dL (8.4-10.2) 03/13/18 07:22 Total Bilirubin 1.0 mg/dl (0.2-1.3) 03/13/18 07:22 AST 82 U/L (17-59) H D 03/13/18 07:22 ALT 52 U/L (21-72) 03/13/18 07:22 Alkaline Phosphatase 334 U/L (38-126) H D 03/13/18 07:22 Total Protein 6.8 G/DL (6.3-8.2) 03/13/18 07:22 Albumin 3.3 g/dL (3.5-5.0) L 03/13/18 07:22 Globulin 3.5 gm/dL (2.2-3.9) 03/13/18 07: Albumin/Globulin Ratio 0.9 (1.0-2.1) L 03/13/18 07:22 Lipase 59 U/L (23-300) 03/11/18 20:47 TSH 3rd Generation 0.88 mIU/ML (0.46-4.68) 03/11/18 20:47 Urine Color Yellow (YELLOW) 03/12/18 06:00 Urine Clarity Clear (Clear) 03/12/18 06:00 Urine pH 5.0 (5.0-8.0) 03/12/18 06:00 Ur Specific Beck[place] 1.011 (1.003-1.030) 03/12/18 06:00 Urine Protein Negative mg/dL (NEGATIVE) 03/12/18 06:00 Urine Glucose (UA) Neg mg/dL (Normal) 03/12/18 06:00 Urine Ketones Negative mg/dL (NEGATIVE) 03/12/18 06:00 Urine Blood Small (NEGATIVE) 03/12/18 06:00 Urine Nitrate Negative (NEGATIVE) 03/12/18 06:00 Urine Bilirubin Negative (NEGATIVE) 03/12/18 06:00 Urine Urobilinogen 0.2-1.0 mg/dL (0.2-1.0) 03/12/18 06:00 Ur Leukocyte Esterase Trace [place]ore[place]/uL (Negative) 03/12/18 06:00 Urine RBC (Auto) 2 /hpf (0-3) 03/12/18 06:00 Urine Microscopic WBC 1 /hpf (0-5) 03/12/18 06:00 C. difficile Ag & Toxin Negative (NEGATIVE) 03/13/18 10:40 Hepatitis A IgM Ab Negative (NEGATIVE) 03/12/18 15:23 Hep Bs Antigen Negative (NEGATIVE) 03/12/18 15:23 Hep B Core IgM Ab Negative (NEGATIVE) 03/12/18 15:23 Hepatitis C Antibody Negative (NEGATIVE) 03/12/18 15:23 - Hospital Course Hospital Course: 42 y/o male with a PMHx of severe persistent asthma, gastritis, pancreatitis, vitiligo, NSTEMI and multifocal pneumonia, chronic back pain whom was admitted for evaluation of acute on chronic abdominal pain. Seen by GI whom performed EGD /Colonscopy on pt in February. Results showed Eosinophilic colitis. Abx were discontinued. Started on an elimination diet. C.diff was negative. Hep panel was negative. Started on course of Budesonide 9mg for 12weeks PO. After an uneventful hospital stay the patient was discharged in stable condition. Plan: -elimination diet (information given to patient) -follow up stool culture, ova& P -hepatitis panel neg -budesonide 9smg PO for 12 weeks -follow-up at GI clinic in 3-4 weeks -Repeat colonoscopy and eGD in 3 month Discharge Exam - Head Exam Head Exam: ATRAUMATIC, NORMOCEPHALIC Discharge Plan - Discharge Medications Prescriptions: Budesonide [Pulmicort Respules] 9 mg IH DAILY 30 Days #30 neb Ondansetron ODT [Zofran ODT] 4 mg PO Q8H PRN #20 odt PRN Reason: Nausea/Vomiting - Follow Up Plan Condition: GOOD Disposition: HOME/ ROUTINE Instructions: Ulcerative Colitis in Adults Additional Instructions: take medications as prescibed follow diet as ordered follow up with primary medical doctor this week follow up with Dr. Heart at GI clinic any worsening symptoms return to ED Referrals: Naren Heart MD [Medical Doctor] -
--- NOTE | 2018-03-13 15:37 | CP.PCM.PN ---
<Ming Blackwell - Last Filed: 03/13/18 15:38> Subjective - Date & Time of Evaluation Date of Evaluation: 03/13/18 Time of Evaluation: 09:00 - Subjective Subjective: PGY5 GI Follow-up Pt seen and examined bedside denies any abd pain +back pain diarrhea improved denies any fever, chills or diaphoresis ROS: 12 point ROS conducted, neg other than above Objective - Vital Signs/Intake and Output Vital Signs (last 24 hours): Temp Pulse Resp BP Pulse Ox 97.6 F 89 19 91/58 L 94 L 03/13/18 08:03 03/13/18 08:03 03/13/18 08:03 03/13/18 08:03 03/13/18 08:03 - Medications Medications: Current Medications Acetaminophen (Tylenol 325mg Tab) 650 mg PO Q6 PRN PRN Reason: Pain, Mild (1-3) Last Admin: 03/13/18 12:54 Dose: 650 mg Albuterol Sulfate (Albuterol 0.083% Inhal Cassidy (2.5 Mg/3 Ml) Ud) 3 mg IH RQ6 PRN PRN Reason: Shortness of Breath Enoxaparin Sodium (Lovenox) 40 mg SC DAILY DARIEL PRN Reason: Protocol Last Admin: 03/13/18 09:01 Dose: Not Given Home Med (Patient's Own Medication) 1,600 unit PO TID [facility] Ondansetron HCl (Zofran Inj) 4 mg IVP Q6 PRN PRN Reason: Nausea/Vomiting Ondansetron HCl (Zofran Odt) 4 mg PO Q8H PRN PRN Reason: Nausea/Vomiting Pantoprazole Sodium (Protonix Ec Tab) 40 mg PO DAILY [facility] Last Admin: 03/13/18 09:01 Dose: 40 mg Polyethylene Glycol (Miralax) 17 gm PO BID [facility] Last Admin: 03/13/18 10:14 Dose: 17 gm Fluticasone/Salmeterol (Advair Diskus 500/50) 1 puff INH BID [facility] Last Admin: 03/13/18 09:01 Dose: 1 puff - Labs Labs: 03/13/18 07:22 03/13/18 07:22 - Constitutional Appears: Well, No Acute Distress - Head Exam Head Exam: ATRAUMATIC, NORMOCEPHALIC - Eye Exam Eye Exam: Normal appearance - ENT Exam ENT Exam: Mucous Membranes Moist, Normal Exam - Neck Exam Neck Exam: Normal Inspection - Respiratory Exam Respiratory Exam: Clear to Ausculation Bilateral, NORMAL BREATHING PATTERN. absent: Rales, Rhonchi, Wheezes, Respiratory Distress - Cardiovascular Exam Cardiovascular Exam: REGULAR RHYTHM, +S1, +S2 - GI/Abdominal Exam GI & Abdominal Exam: Soft, Normal Bowel Sounds. absent: Distended, Guarding, Rigid, Tenderness, Organomegaly - Extremities Exam Extremities Exam: absent: Joint Swelling, Pedal Edema - Neurological Exam Neurological Exam: Alert, Awake, Oriented x3 - Psychiatric Exam Psychiatric exam: Normal Affect, Normal Mood - Skin Skin Exam: Dry, Intact, Normal Color, Warm Assessment and Plan - Assessment and Plan (Free Text) Assessment: Joaquin Avalos is a 42M w/ hx of severe persistent asthma, gastritis, pancreatitis , vitiligo, NSTEMI and multifocal pneumonia, chronic back pain who presented to the ED complaining of persistent abdominal pain and back pain. 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 diff and cultures pending -stool culture, ova& P -hepatitis panel neg -gold quant pending -no need for abx -recommend budesonide 9smg PO for 4 weeks then taper -follow-up at GI clinic in 3-4 weeks -will eventually need to repeat colonoscopy and eGD in 3 month D/W Dr. Heart <Naren Heart - Last Filed: 03/13/18 16:35> Objective - Vital Signs/Intake and Output Vital Signs (last 24 hours): Temp Pulse Resp BP Pulse Ox 97.6 F 89 19 91/58 L 94 L 03/13/18 08:03 03/13/18 08:03 03/13/18 08:03 03/13/18 08:03 03/13/18 08:03 - Medications Medications: Current Medications Acetaminophen (Tylenol 325mg Tab) 650 mg PO Q6 PRN PRN Reason: Pain, Mild (1-3) Last Admin: 03/13/18 12:54 Dose: 650 mg Albuterol Sulfate (Albuterol 0.083% Inhal Cassidy (2.5 Mg/3 Ml) Ud) 3 mg IH RQ6 PRN PRN Reason: Shortness of Breath Enoxaparin Sodium (Lovenox) 40 mg SC DAILY DARIEL PRN Reason: Protocol Last Admin: 03/13/18 09:01 Dose: Not Given Home Med (Patient's Own Medication) 1,600 unit PO TID [facility] Ondansetron HCl (Zofran Inj) 4 mg IVP Q6 PRN PRN Reason: Nausea/Vomiting Ondansetron HCl (Zofran Odt) 4 mg PO Q8H PRN PRN Reason: Nausea/Vomiting Pantoprazole Sodium (Protonix Ec Tab) 40 mg PO DAILY [facility] Last Admin: 03/13/18 09:01 Dose: 40 mg Polyethylene Glycol (Miralax) 17 gm PO BID [facility] Last Admin: 03/13/18 10:14 Dose: 17 gm Fluticasone/Salmeterol (Advair Diskus 500/50) 1 puff INH BID [facility] Last Admin: 03/13/18 09:01 Dose: 1 puff - Labs Labs: 03/13/18 07:22 03/13/18 07:22 Attending/Attestation - Attestation I have personally seen and examined this patient.: Yes I have fully participated in the care of the patient.: Yes I have reviewed all pertinent clinical information, including history, physical exam and plan: Yes Notes (Text): 03/13/18 16:32 Patient seen with GI fellow this am. This is a 42 yr old M with history of severe persistent asthma, gastritis, pancreatitis, vitiligo, NSTEMI and multifocal pneumonia, chronic back pain with recent colonoscopy two weeks ago showing multiple abscesses and ulcerations in the colon with skip lesions, not able to intubate the terminal ileum. Differential diagnosis was IBD vs eosinophilic colitis.Biopsy showed eosinophils with cryptitis and peripheral blood eosinophilia. Will start budesonide 9 mg for 12 weeks and then taper for 12 weeks and food elimination diet. Stool infectious work up pending. Can discontinue antibiotics. Diet as tolerated. Discussed with the primary team. To follow in the medical center clinic in 3 mos
[2018-03-14] MEDS ORDERED: Budesonide 0.5 mg/2 ml Inhal Susp UD IH SCH (09:00)
== END 2018-03-13 16:55 | disposition home or self-care (01) ==
LOC: H.ER 16:10 → H.ERHOLD 21:23 → H.MEDSURG1 23:20
PROVIDERS: ADMIT Family Medicine Geriatric Medicine; ATTEND Family Medicine Geriatric Medicine
DX: K52.82 Eosinophilic colitis (principal); K22.10 Ulcer of esophagus without bleeding; K25.9 Gastric ulcer, unspecified as acute or chronic, without hemorrhage or perforation; K26.9 Duodenal ulcer, unspecified as acute or chronic, without hemorrhage or perforation; K29.70 Gastritis, unspecified, without bleeding; G89.29 Other chronic pain; J44.9 Chronic obstructive pulmonary disease, unspecified; J45.50 Severe persistent asthma, uncomplicated; I25.2 Old myocardial infarction; Z87.01 Personal history of pneumonia (recurrent)
CPT/HCPCS: 36415; 80048; 80053; 81003; 83690; 83993; 84443; 85025; 85027; 86705; 86707; 87040; 87045; 87230; 87350; 96361; 96365; 96366; 96367; 96375; 96376; 99283; G0378; J0744; J2270; J2543; J7030; J7120

== ENCOUNTER 2018-03-14 21:39 | Observation (INO) | payer MEDICAID ==
[2018-03-14 21:39] VITALS: BMI 21.2
[2018-03-14] MEDS ORDERED: Sodium Chloride 0.9% 1,000 ML IV STA (22:06)
--- NOTE | 2018-03-14 22:20 | ED PDOC ---
HPI: Abdomen Time Seen by Provider: 03/14/18 21:46 Chief Complaint (Nursing): Abdominal Pain Chief Complaint (Provider): Abdominal Pain History Per: Patient History/Exam Limitations: no limitations Onset/Duration Of Symptoms: Days Current Symptoms Are (Timing): Still Present Location Of Pain/Discomfort: Diffuse Additional Complaint(s): 42 y/o male presents to the ED with complaints of chronic abdominal pain. Patient has been to the hospital multiple time this year for similar pain. 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 Patient was discharged yesterday with multiple medications including toradol, tramadol, and Budesonide. Patient reports that he took toradol twice today and this afternoon started to have palpitations and dizziness so now he is concerned for adverse reactions. Patient states Budesonide was not covered by insurance. And he reports he may have left the pharmacy before they could fill the Tramadol because it was not in his bag of medications when he arrived home, and it was too late to return to pharmacy. Therefore, his pain has persisted. Additionally, patient complains of vomiting this morning and intermittent black stool. PMD: [facility] Past Medical History Reviewed: Historical Data, Nursing Documentation, Vital Signs Vital Signs: Last Vital Signs Temp 97.5 F L 03/16/18 08:23 Pulse 81 03/16/18 08:23 Resp 20 03/16/18 08:23 BP 104/71 03/16/18 08:23 Pulse Ox 96 03/16/18 08:23 - Medical History PMH: Asthma, CHF, COPD, Diverticulitis, Gastritis, Pancreatitis, Pneumonia Denies: HIV, Chronic Kidney Disease - Surgical History Surgical History: No Surg Hx - Family History Family History: States: Unknown Family Hx - Home Medications Home Medications: Ambulatory Orders Medication Instructions Recorded Albuterol 0.5% [Albuterol 0.5% 1 ml IH Q6 PRN 02/09/18 Inhal Cassidy (2.5 mg/0.5 ml) UD] Fluticasone/Salmeterol 500/50 1 puff INH BID 03/11/18 [Advair Diskus 500/50] Mesalamine [Asacol HD 800mg] 1,600 mg PO TID 03/11/18 Omeprazole 40 mg PO DAILY 03/11/18 Budesonide [Pulmicort Respules] 9 mg IH DAILY 30 Days #30 neb 03/13/18 Ondansetron ODT [Zofran ODT] 4 mg PO Q8H PRN #20 odt 03/13/18 - Allergies Allergies/Adverse Reactions: Allergies Allergy/AdvReac Type Severity Reaction Status Date / Time No Known Allergies Allergy Verified 03/11/18 17:12 Review of Systems ROS Statement: Except As Marked, All Systems Reviewed And Found Negative (As per HPI) Cardiovascular: Positive for: Palpitations Gastrointestinal: Positive for: Vomiting, Abdominal Pain, Other (intermittent flex stool ) Neurological: Positive for: Dizziness Physical Exam - Reviewed Nursing Documentation Reviewed: Yes Vital Signs Reviewed: Yes - Physical Exam Appears: Positive for: Uncomfortable (mild HTN), In Acute Distress Head Exam: Positive for: ATRAUMATIC, NORMOCEPHALIC Skin: Positive for: Warm (areas of hypopigmentation consistent with diffuse impetigo), Dry Eye Exam: Positive for: EOMI, PERRL ENT: Positive for: Normal ENT Inspection, Other (Dry mucous membrane) Neck: Positive for: Painless ROM, Supple Cardiovascular/Chest: Positive for: Regular Rate, Rhythm, Tachycardia Respiratory: Positive for: Normal Breath Sounds. Negative for: Respiratory Distress Gastrointestinal/Abdominal: Positive for: Normal Exam, Soft, Tenderness ( diffusely). Negative for: Mass, Guarding, Rebound Back: Positive for: Normal Inspection. Negative for: Decreased ROM Extremity: Positive for: Normal ROM. Negative for: Deformity Lymphatic: Negative for: Adenopathy Neurologic/Psych: Positive for: Alert. Negative for: Motor/Sensory Deficits - Laboratory Results Result Diagrams: 03/14/18 22:25 03/14/18 22:25 - ECG O2 Sat by Pulse Oximetry: 97 (RA) Pulse Ox Interpretation: Normal Medical Decision Making Medical Decision Making: Time: 2224 Impression: Acute on chronic abdominal pain Rule out dehydration, sepsis, and anemia Plan: -- CMP -- Lact Acid, Plasma -- Lipase -- Magnesium -- Phosphorus -- CBC with differentials -- PTT -- Prothrombin Time -- Dextrose 5%-0.9% NS IV 100 mls/hr -- Sodium Chloride 1000 mls/hr -- SOLU-Medrol 125 IVP -- Tramadol 50 mg PO -- Blood Culture -- IV Insertion No relief with tramadol. Concern for dependence on opiate medication at this time. Pt strongly requesting morphine. Advised hospitalization and pain management consult in morning. At this time since there is no change in medical condition, so even if given IV morphine, condition at home will simply recur. [facility] resident. Scribe Attestation: Documented by Janell Davis acting as a scribe for Dr. Magalis Lua. Provider Scribe Attestation: All medical record entries made by the Scribe were at my direction and personally dictated by me. I have reviewed the chart and agree that the record accurately reflects my personal performance of the history, physical exam, medical decision making, and the department course for this patient. I have also personally directed, reviewed, and agree with the discharge instructions and disposition. Disposition - Clinical Impression Clinical Impression: Intractable abdominal pain, Dehydration, Eosinophilic colitis Counseled Patient/Family Regarding: Studies Performed, Diagnosis - Disposition Disposition Time: 23:00 Condition: FAIR - Pt Status Changed To: Hospital Disposition Of: Observation - POA Present On Arrival: None
[2018-03-14 22:37] LABS: BASO # 0.1 K/uL (0.0-0.2); BASO % 0.5 % (0.0-2.0); EOS # 6.1 K/uL (0.0-0.7); EOS % 33.3 % (0.0-4.0); HEMOGLOBIN 13.4 g/dL (12.0-18.0); LYMPH # 2.7 K/uL (1.0-4.3); LYMPH % 14.6 % (20.0-40.0); MEAN CELL VOLUME 87.6 fl (80.0-94.0); MEAN CORPUSCULAR HEMOGLOBIN 28.8 pg (27.0-31.0); MEAN CORPUSCULAR HGB CONC 32.9 g/dL (33.0-37.0); MEAN PLATELET VOLUME 8.6 fl (7.2-11.7); MONO # 1.3 K/uL (0.0-0.8); MONO % 6.9 % (0.0-10.0); NEUT # 8.2 K/uL (1.8-7.0); NEUT % 44.7 % (50.0-75.0); PLATELET COUNT 294 K/uL (130-400); RBC 4.65 Mil/uL (4.40-5.90); RED CELL DISTRIBUTION WIDTH 14.8 % (11.5-14.5); WHITE BLOOD COUNT 18.3 K/uL (4.8-10.8)
[2018-03-14 22:41] LABS: ALB/GLOB RATIO 0.9 (1.0-2.1); ALBUMIN 3.3 g/dL (3.5-5.0); ALT/SGPT 43 U/L (21-72); AST/SGOT 52 U/L (17-59); BLOOD UREA NITROGEN 13 mg/dl (9-20); CALCIUM 8.4 mg/dL (8.4-10.2); GFR AFRICAN-AMERICAN > 60; GFR NON-AFRICAN AMERICAN > 60; LIPASE 33 U/L (23-300)
[2018-03-14 22:50] LABS: INR 1.3 (0.9-1.2); PARTIAL THROMBOPLASTIN TIME 35.9 Seconds (25.6-37.1); PROTHROMBIN TIME 14.7 Seconds (9.8-13.1)
[2018-03-14] MEDS ORDERED: ALBUTEROL IH PRN (23:33)
[2018-03-15 00:17] LABS: BANDS 1 % (0-2); EOSINOPHIL 20 % (0-7); LYMPHOCYTE 12 % (20-50); MONOCYTE 6 % (0-10); NEUTROPHIL 56 % (42-75); PLATELET ESTIMATE NORMAL (NORMAL); REACTIVE LYMPHOCYTES 5 % (0-0); TOTAL CELLS COUNTED 100
[2018-03-15 00:20] LABS: ANISOCYTOSIS SLIGHT; HYPOCHROMIC SLIGHT; LARGE PLATELETS PRESENT; OVALOCYTES SLIGHT; TOXIC GRANULATION PRESENT
--- NOTE | 2018-03-15 00:23 | CP.PCM.HP ---
History of Present Illness - History of Present Illness History of Present Illness: 42 y/o male with PMH of severe persistent asthma, gastritis, pancreatitis, vitiligo, NSTEMI and multifocal pneumonia, chronic back pain, recently diagnosed with colitis and possible Eosinophilic colitis after GI evaluation presents to ED complaining of stomach burning sensation, and unbearable lower abdominal pain. 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 Patient states Budesonide was not covered by insurance. And he reports he may have left the pharmacy before they could fill the Tramadol because it was not in his bag of medications when he arrived home, and it was too late to return to pharmacy. Patient reports that he took toradol twice today because he did not have anything else for pain control at home. However his pain has persisted, and also has burning sensation in his stomach . Additionally, patient complains of a non bloody vomit this morning and two episodes of diarrheas. Denies fevers, chills, chest pain, SOB, urinary symptoms, blood in stools. PMD: [facility] PMH: asthma, gastritis, vitiligo, pancreatitis, NSTEMI and multifocal pneumonia PSH: Thermoplasty 4 times procedures, last one on november 2017. Cardic cath november 2017 at [facility] Allg: NKDA, reports; pollen allergy Meds: Albuterol, Nebulizer, Cimbicort, steroids, Omeprazole and tramadol SH: Patient reports social alcohol use, denies smoking or illicit drug use ( Urine drugs + for marijuana in past). Patient is unemployed, lives with and 2 daughters FH: Father, alive, hx of asthma and hypercholesterolemia. Mother, alive, hx of trigeminal neuralgia. Next of Kin: : Briana Avalos: [phone] Code status: Full code ED course: VS: afebrile, tachy, hypotensive PE: CV: RRR, normal S1, S2 resp: CTA B/L, no rales, wheezing or rhonchi abd: BS present, soft, non distended, tender to deep palpation of epigastrium, and lower abdomen, no rebound, no guarding or rigidity ext: no edema labs: CBC : showed leukocytosis, CMP: normal lytes, and renal function, lipase normal, lactic acid normal, coag panel unremarkable Blood Cx done Tx: 1 L NS bolus, tramadol 50 mg po for pain, solumedrol 125 mg IV once Present on Admission - Present on Admission Any Indicators Present on Admission: No History of DVT/PE: No History of Uncontrolled Diabetes: No Urinary Catheter: No Decubitus Ulcer Present: No Review of Systems - Review of Systems All systems: reviewed and no additional remarkable complaints except (as per HPI ) Past Patient History - Infectious Disease Hx of Infectious Diseases: None - Past Medical History & Family History Past Medical History?: Yes - Past Social History Smoking Status: Never Smoked - CARDIAC Hx Congestive Heart Failure: Yes - PULMONARY Hx Asthma: Yes Hx Chronic Obstructive Pulmonary Disease (COPD): Yes Hx Pneumonia: Yes - NEUROLOGICAL Hx Neurological Disorder: No - HEENT Hx HEENT Problems: No - RENAL Hx Chronic Kidney Disease: No - ENDOCRINE/METABOLIC Hx Endocrine Disorders: No - HEMATOLOGICAL/ONCOLOGICAL Hx Human Immunodeficiency Virus (HIV): No - INTEGUMENTARY Hx Dermatological Problems: No - MUSCULOSKELETAL/RHEUMATOLOGICAL Hx Musculoskeletal Disorders: No - GASTROINTESTINAL Hx Diverticulitis: Yes Hx Gastritis: Yes Hx Pancreatitis: Yes - GENITOURINARY/GYNECOLOGICAL Hx Genitourinary Disorders: No - PSYCHIATRIC Hx Psychophysiologic Disorder: No Hx Substance Use: No - SURGICAL HISTORY Hx Surgeries: Yes Other/Comment: I&D LEG ABSCESS - ANESTHESIA Hx Anesthesia: Yes Hx Anesthesia Reactions: No Hx Malignant Hyperthermia: No Meds Allergies/Adverse Reactions: Allergies Allergy/AdvReac Type Severity Reaction Status Date / Time No Known Allergies Allergy Verified 03/11/18 17:12 Physical Exam - Constitutional Appears: Non-toxic Additional comments: uncomfortable because pain - Eye Exam Eye Exam: Normal appearance - ENT Exam ENT Exam: Mucous Membranes Dry - Respiratory Exam Respiratory Exam: Clear to Auscultation Bilateral, NORMAL BREATHING PATTERN. absent: Accessory Muscle Use, Chest Wall Tenderness, Rales, Rhonchi, Wheezes, Respiratory Distress - Cardiovascular Exam Cardiovascular Exam: Tachycardia, REGULAR RHYTHM, +S1, +S2 - GI/Abdominal Exam GI & Abdominal Exam: Normal Bowel Sounds, Soft, Tenderness (epigastrium and lower abd tender to deep palpation, no rebound noted). absent: Guarding, Rebound, Rigid - Extremities Exam Extremities exam: Positive for: normal inspection. Negative for: calf tenderness, pedal edema - Back Exam Back exam: absent: CVA tenderness (L), CVA tenderness (R) - Neurological Exam Neurological exam: Alert, Oriented x3 Results - Vital Signs Recent Vital Signs: Last Vital Signs Temp 98.1 F 03/14/18 21:40 Pulse 104 H 03/14/18 23:06 Resp 18 03/14/18 23:06 BP 108/68 03/14/18 23:06 Pulse Ox 97 03/15/18 00:16 - Labs Result Diagrams: 03/14/18 22:25 03/14/18 22:25 Labs: Laboratory Results - last 24 hr 03/14/18 03/14/18 03/14/18 22:25 22:25 22:25 WBC 18.3 H RBC 4.65 Hgb 13.4 Hct 40.8 MCV 87.6 MCH 28.8 MCHC 32.9 L RDW 14.8 H Plt Count 294 MPV 8.6 Neut % (Auto) 44.7 L Lymph % (Auto) 14.6 L Forest % (Auto) 6.9 Eos % (Auto) 33.3 H Baso % (Auto) 0.5 Neut # (Auto) 8.2 H Lymph # (Auto) 2.7 Forest # (Auto) 1.3 H Eos # (Auto) 6.1 H Baso # (Auto) 0.1 Neutrophils % (Manual) 56 Band Neutrophils % 1 Lymphocytes % (Manual) 12 L Reactive Lymphs % 5 H Monocytes % (Manual) 6 Eosinophils % (Manual) 20 H Toxic Granulation Present Platelet Estimate Normal Large Platelets Present Hypochromasia (manual) Slight Anisocytosis (manual) Slight Ovalocytes Slight PT INR APTT Sodium 133 Potassium 3.7 Chloride 98 Carbon Dioxide 25 Anion Gap 14 BUN 13 Creatinine 1.1 Est GFR ( Amer) > 60 Est GFR (Non-Af Amer) > 60 Random Glucose 108 Lactic Acid 0.8 Calcium 8.4 Phosphorus 3.6 Magnesium 1.8 Total Bilirubin 0.6 AST 52 ALT 43 Alkaline Phosphatase 293 H Total Protein 6.9 Albumin 3.3 L Globulin 3.6 Albumin/Globulin Ratio 0.9 L Lipase 33 03/14/18 22:25 WBC RBC Hgb Hct MCV MCH MCHC RDW Plt Count MPV Neut % (Auto) Lymph % (Auto) Forest % (Auto) Eos % (Auto) Baso % (Auto) Neut # (Auto) Lymph # (Auto) Forest # (Auto) Eos # (Auto) Baso # (Auto) Neutrophils % (Manual) Band Neutrophils % Lymphocytes % (Manual) Reactive Lymphs % Monocytes % (Manual) Eosinophils % (Manual) Toxic Granulation Platelet Estimate Large Platelets Hypochromasia (manual) Anisocytosis (manual) Ovalocytes PT 14.7 H INR 1.3 H APTT 35.9 Sodium Potassium Chloride Carbon Dioxide Anion Gap BUN Creatinine Est GFR ( Amer) Est GFR (Non-Af Amer) Random Glucose Lactic Acid Calcium Phosphorus Magnesium Total Bilirubin AST ALT Alkaline Phosphatase Total Protein Albumin Globulin Albumin/Globulin Ratio Lipase Assessment & Plan - Assessment and Plan (Free Text) Assessment: 42 y/o male with PMH of severe persistent asthma, gastritis, pancreatitis, and recent diagnosed with colitis and possible Eosinophilic colitis being admitted for persistent/intractable abdominal pain. Plan: Abdominal Pain -MedSurg unit -most machuca 2/2 extensive colonic inflammation/Eosinophilic colitis -still pending results to r/o infectious etiology -pain control PRN. Consider Pain management consult because concern for dependence on opiate medication at this time. -In prior admission after GI eval, NO need for antibiotics -c/w IV fluids maintenance @ 100 ml/hr -c/w Asacol 800 mg po TID( ordered on 03/02/18 to take for 6 weeks) -S/p Solumedrol 125 mg IV once in ER -will continue with steroid therapy( patient was supposed to start Budesonide PO x 4 weeks then taper as per GI, but could not afford it, and his insurance did not cover it) -will start Elimination diet recommended by GI on last admission. Patient Can Not have fish, soy, nuts, wheat, and dairy products. -Zofran 4 mg ODT for N/V control -Protonix 40 mg IV once -c/w Protonix 40 mg PO daily -C-diff negative on 03/13/18 -Hepatitis panel negative on 03/12/18 -leukocytosis, persistent/chronic -lipase normal on admission -Pending Ova and parasite, ad stool culture done in prior admission (admitted on 03/11/18 and DC on 03/13/18) -Re-call GI in AM, Dr. Heart. Recommendations are appreciated. -Endoscopy as Colonoscopy done by [facility], Dr. Heart on 03/02/18 -Avoid aspirin, ibuprofen, toradol, and other NSAIDs x 12 weeks as per GI -Noted on last admission, will eventually need to repeat colonoscopy and EGD in 3 month as per GI recs Acute Diarrheas -could be 2/2 Colitis -f/u Stool cultures, Ova and parasites -C-diff negative on 03/13/18 -Hepatitis panel negative on 03/12/18 -f/u Blood Cx done in ER Leukocytosis -persistent, chronic -however improving -possible 2/2 persistent inflammatory colonic condition -afebrile -f/u CBC in AM H/O Severe persistent Asthma -controlled with current treatment -c/w home Fluticasone/salmeterol BID -Albuterol inh PRN DVT prophylaxis -lovenox 40 mg SC -SCDs - Date & Time Date: 03/15/18 Time: 00:30
[2018-03-15] MEDS ORDERED: Sterile Water 10 ML IV ONE (00:46)
[2018-03-15] MEDS ORDERED: Albuterol 0.083% Inhal Sol (2.5 mg/3 mL) UD INH PRN (01:25)
[2018-03-15 08:29] VITALS: RESP 20
--- NOTE | 2018-03-15 08:30 | CP.PCM.CON ---
<Ming lBackwell - Last Filed: 03/15/18 17:08> History of Present Illness - History of Present Illness History of Present Illness: PGY5 Initial GI Consult Joaquin Avalos is a 42M w/ hx of severe persistent asthma, gastritis, pancreatitis , vitiligo, NSTEMI and multifocal pneumonia, chronic back pain who presented to the ED complaining of persistent abdominal pain and back pain. He was recently discharged 1 day prior for similiar complaints. 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 He notes that the medication was not covered by his insurance and he was not able to fill it. He notes persistent abd pain, which lead him to come to the ED. He also notes associated nausea, and vomiting. He had an EGD and colonoscopy for evaluation of similar GI symptoms, and was found to have extensive inflammation of the colon, transverse colon ulceration, multiple non- bleeding duodenal ulcers, bleeding erosive gastropathy. Differentials at that time included IBD, infectous etiology. Patient was sent home on Asacol, and Cipro/flagyl (x 2 wks). Patient reports good adherence to GI treatment. Patient was seen in ED on 03/09/18 due to similar symptoms, had a CT scan which reported colitis, but he signed out AMA. Reports abdominal pain is located in his stomach, and lower abdomen( hypogastrium) after heavy meals, no constant, no radiating, associated with nausea and He now reported multiple episodes of non bloody vomitus with worsening abd pain for 6 days in the periumbical area. Patient had Has an oncoming appointment with GI on 03/19/18. PMH: asthma, gastritis, vitiligo, pancreatitis, NSTEMI and multifocal pneumonia PSH: Thermoplasty 4 times procedures, last one on november 2017. Cardic cath november 2017 at [facility] SH: Patient reports social alcohol use, denies smoking or illicit drug use ( Urine drugs + for marijuana in past). Patient is unemployed, lives with and 2 daughters FH: Father, alive, hx of asthma and hypercholesterolemia. Mother, alive, hx of trigeminal neuralgia. ROS: 12 point ROS conducted, neg other than above Past Patient History - Infectious Disease Hx of Infectious Diseases: None - Past Medical History & Family History Past Medical History?: Yes - Past Social History Smoking Status: Never Smoked - CARDIAC Hx Congestive Heart Failure: Yes - PULMONARY Hx Asthma: Yes Hx Chronic Obstructive Pulmonary Disease (COPD): Yes Hx Pneumonia: Yes - NEUROLOGICAL Hx Neurological Disorder: No - HEENT Hx HEENT Problems: No - RENAL Hx Chronic Kidney Disease: No - ENDOCRINE/METABOLIC Hx Endocrine Disorders: No - HEMATOLOGICAL/ONCOLOGICAL Hx Human Immunodeficiency Virus (HIV): No - INTEGUMENTARY Hx Dermatological Problems: No - MUSCULOSKELETAL/RHEUMATOLOGICAL Hx Musculoskeletal Disorders: No - GASTROINTESTINAL Hx Diverticulitis: Yes Hx Gastritis: Yes Hx Pancreatitis: Yes - GENITOURINARY/GYNECOLOGICAL Hx Genitourinary Disorders: No - PSYCHIATRIC Hx Psychophysiologic Disorder: No Hx Substance Use: No - SURGICAL HISTORY Hx Surgeries: Yes Other/Comment: I&D LEG ABSCESS - ANESTHESIA Hx Anesthesia: Yes Hx Anesthesia Reactions: No Hx Malignant Hyperthermia: No Meds Allergies/Adverse Reactions: Allergies Allergy/AdvReac Type Severity Reaction Status Date / Time No Known Allergies Allergy Verified 03/11/18 17:12 - Medications Medications: Current Medications Albuterol Sulfate (Albuterol 0.083% Inhal Cassidy (2.5 Mg/3 Ml) Ud) 2.5 mg INH RQ6 PRN PRN Reason: Shortness of Breath Enoxaparin Sodium (Lovenox) 40 mg SC DAILY DARIEL PRN Reason: Protocol Home Med (Mesalamine [Asacol Hd 800mg]) 1,600 mg PO TID [facility] Dextrose/Sodium Chloride (Dextrose 5%-0.9% Ns 500 Ml) 1,000 mls @ 100 mls/hr IV .Q10H [facility] Last Admin: 03/15/18 00:05 Dose: 100 mls/hr Sodium Chloride (Sodium Chloride 0.9%) 1,000 mls @ 100 mls/hr IV .Q10H DARIEL Stop: 03/15/18 23:36 Methylprednisolone (Solu-Medrol) 40 mg IVP DAILY [facility] Ondansetron HCl (Zofran Odt) 4 mg PO Q8H PRN PRN Reason: Nausea/Vomiting Pantoprazole Sodium (Protonix Ec Tab) 40 mg PO DAILY [facility] Fluticasone/Salmeterol (Advair Diskus 500/50) 1 puff INH BID [facility] Tramadol HCl (Ultram) 50 mg PO Q4 PRN PRN Reason: Pain, moderate (4-7) Last Admin: 03/15/18 06:56 Dose: 50 mg Physical Exam - Constitutional Appears: Well, No Acute Distress - Head Exam Head Exam: ATRAUMATIC, NORMOCEPHALIC - Eye Exam Eye Exam: Normal appearance - ENT Exam ENT Exam: Mucous Membranes Moist, Normal Exam - Neck Exam Neck exam: Positive for: Normal Inspection - Respiratory Exam Respiratory Exam: Clear to Auscultation Bilateral, NORMAL BREATHING PATTERN. absent: Rales, Rhonchi, Wheezes, Respiratory Distress - Cardiovascular Exam Cardiovascular Exam: REGULAR RHYTHM, +S1, +S2 - GI/Abdominal Exam GI & Abdominal Exam: Normal Bowel Sounds, Soft. absent: Diminished Bowel Sounds , Distended, Firm, Guarding, Hernia, Organomegaly, Rebound, Rigid, Tenderness - Extremities Exam Extremities exam: Negative for: joint swelling, pedal edema - Neurological Exam Neurological exam: Alert, Oriented x3 - Psychiatric Exam Psychiatric exam: Anxious, Normal Affect - Skin Skin Exam: Dry, Intact, Warm Additional comments: vitilago Results - Vital Signs Recent Vital Signs: Last Vital Signs Temp 97.5 F L 03/15/18 08:28 Pulse 86 03/15/18 08:28 Resp 20 03/15/18 08:28 BP 103/71 03/15/18 08:28 Pulse Ox 95 03/15/18 08:28 - Labs Result Diagrams: 03/14/18 22:25 03/14/18 22:25 Labs: Laboratory Results - last 24 hr 03/14/18 03/14/18 03/14/18 22:25 22:25 22:25 WBC 18.3 H RBC 4.65 Hgb 13.4 Hct 40.8 MCV 87.6 MCH 28.8 MCHC 32.9 L RDW 14.8 H Plt Count 294 MPV 8.6 Neut % (Auto) 44.7 L Lymph % (Auto) 14.6 L Sutter % (Auto) 6.9 Eos % (Auto) 33.3 H Baso % (Auto) 0.5 Neut # (Auto) 8.2 H Lymph # (Auto) 2.7 Sutter # (Auto) 1.3 H Eos # (Auto) 6.1 H Baso # (Auto) 0.1 Neutrophils % (Manual) 56 Band Neutrophils % 1 Lymphocytes % (Manual) 12 L Reactive Lymphs % 5 H Monocytes % (Manual) 6 Eosinophils % (Manual) 20 H Toxic Granulation Present Platelet Estimate Normal Large Platelets Present Hypochromasia (manual) Slight Anisocytosis (manual) Slight Ovalocytes Slight PT INR APTT Sodium 133 Potassium 3.7 Chloride 98 Carbon Dioxide 25 Anion Gap 14 BUN 13 Creatinine 1.1 Est GFR ( Amer) > 60 Est GFR (Non-Af Amer) > 60 Random Glucose 108 Lactic Acid 0.8 Calcium 8.4 Phosphorus 3.6 Magnesium 1.8 Total Bilirubin 0.6 AST 52 ALT 43 Alkaline Phosphatase 293 H Total Protein 6.9 Albumin 3.3 L Globulin 3.6 Albumin/Globulin Ratio 0.9 L Lipase 33 03/14/18 22:25 WBC RBC Hgb Hct MCV MCH MCHC RDW Plt Count MPV Neut % (Auto) Lymph % (Auto) Sutter % (Auto) Eos % (Auto) Baso % (Auto) Neut # (Auto) Lymph # (Auto) Sutter # (Auto) Eos # (Auto) Baso # (Auto) Neutrophils % (Manual) Band Neutrophils % Lymphocytes % (Manual) Reactive Lymphs % Monocytes % (Manual) Eosinophils % (Manual) Toxic Granulation Platelet Estimate Large Platelets Hypochromasia (manual) Anisocytosis (manual) Ovalocytes PT 14.7 H INR 1.3 H APTT 35.9 Sodium Potassium Chloride Carbon Dioxide Anion Gap BUN Creatinine Est GFR ( Amer) Est GFR (Non-Af Amer) Random Glucose Lactic Acid Calcium Phosphorus Magnesium Total Bilirubin AST ALT Alkaline Phosphatase Total Protein Albumin Globulin Albumin/Globulin Ratio Lipase Assessment & Plan - Assessment and Plan (Free Text) Assessment: Joaquin Avalos is a 42M w/ hx of severe persistent asthma, gastritis, pancreatitis , vitiligo, NSTEMI and multifocal pneumonia, chronic back pain who presented to the ED complaining of persistent abdominal pain and back pain. Colitis, etiology may be 2/2 eosinophilic colitis Nausea/vomiting, improved Chronic back pain Diarrhea 2/2 colitis Gastritis Leukocytosis 2/2 chronic PO prednisone, remains afebrile Plan: -advance diet as tolerated -infectous etiology unlikely, c.diff and stool cultures neg -hepatitis panel neg -gold quant pending -no need for abx -continue solumedrol -will eventually need to repeat colonoscopy and eGD in 3 month -start 6 elimination diet -will get CTE -consult surgery -pain control as per primary team, avoid opiods, as much as possible -since budesonide is not covered by his insurance, discussed increasing prednisone to 60mg daily then taper after 2 weeks. Pt was not agreeable. D/W Dr. Heart <Naren Heart - Last Filed: 03/15/18 18:53> Meds - Medications Medications: Current Medications Albuterol Sulfate (Albuterol 0.083% Inhal Cassidy (2.5 Mg/3 Ml) Ud) 2.5 mg INH RQ6 PRN PRN Reason: Shortness of Breath Enoxaparin Sodium (Lovenox) 40 mg SC DAILY DARIEL PRN Reason: Protocol Last Admin: 03/15/18 09:47 Dose: Not Given Home Med (Mesalamine [Asacol Hd 800mg]) 1,600 mg PO TID [facility] Dextrose/Sodium Chloride (Dextrose 5%-0.9% Ns 500 Ml) 1,000 mls @ 100 mls/hr IV .Q10H [facility] Last Admin: 03/15/18 09:26 Dose: 100 mls/hr Sodium Chloride (Sodium Chloride 0.9%) 1,000 mls @ 100 mls/hr IV .Q10H [facility] Stop: 03/15/18 23:36 Last Admin: 03/15/18 10:31 Dose: 100 mls/hr Methylprednisolone (Solu-Medrol) 40 mg IVP DAILY [facility] Last Admin: 03/15/18 09:25 Dose: 40 mg Ondansetron HCl (Zofran Odt) 4 mg PO Q8H PRN PRN Reason: Nausea/Vomiting Pantoprazole Sodium (Protonix Ec Tab) 40 mg PO DAILY [facility] Last Admin: 03/15/18 09:25 Dose: 40 mg Fluticasone/Salmeterol (Advair Diskus 500/50) 1 puff INH BID [facility] Last Admin: 03/15/18 18:29 Dose: 1 inh Tramadol HCl (Ultram) 50 mg PO Q4 PRN PRN Reason: Pain, moderate (4-7) Last Admin: 03/15/18 10:20 Dose: 50 mg Results - Vital Signs Recent Vital Signs: Last Vital Signs Temp 97.5 F L 03/15/18 08:28 Pulse 102 H 03/15/18 16:27 Resp 20 03/15/18 16:27 BP 107/71 03/15/18 16:27 Pulse Ox 96 03/15/18 16:27 - Labs Result Diagrams: 03/14/18 22:25 03/14/18 22:25 Labs: Laboratory Results - last 24 hr 03/14/18 03/14/18 03/14/18 22:25 22:25 22:25 WBC 18.3 H RBC 4.65 Hgb 13.4 Hct 40.8 MCV 87.6 MCH 28.8 MCHC 32.9 L RDW 14.8 H Plt Count 294 MPV 8.6 Neut % (Auto) 44.7 L Lymph % (Auto) 14.6 L Sutter % (Auto) 6.9 Eos % (Auto) 33.3 H Baso % (Auto) 0.5 Neut # (Auto) 8.2 H Lymph # (Auto) 2.7 Sutter # (Auto) 1.3 H Eos # (Auto) 6.1 H Baso # (Auto) 0.1 Neutrophils % (Manual) 56 Band Neutrophils % 1 Lymphocytes % (Manual) 12 L Reactive Lymphs % 5 H Monocytes % (Manual) 6 Eosinophils % (Manual) 20 H Toxic Granulation Present Platelet Estimate Normal Large Platelets Present Hypochromasia (manual) Slight Anisocytosis (manual) Slight Ovalocytes Slight PT INR APTT Sodium 133 Potassium 3.7 Chloride 98 Carbon Dioxide 25 Anion Gap 14 BUN 13 Creatinine 1.1 Est GFR ( Amer) > 60 Est GFR (Non-Af Amer) > 60 Random Glucose 108 Lactic Acid 0.8 Calcium 8.4 Phosphorus 3.6 Magnesium 1.8 Total Bilirubin 0.6 AST 52 ALT 43 Alkaline Phosphatase 293 H Total Protein 6.9 Albumin 3.3 L Globulin 3.6 Albumin/Globulin Ratio 0.9 L Lipase 33 03/14/18 22:25 WBC RBC Hgb Hct MCV MCH MCHC RDW Plt Count MPV Neut % (Auto) Lymph % (Auto) Sutter % (Auto) Eos % (Auto) Baso % (Auto) Neut # (Auto) Lymph # (Auto) Sutter # (Auto) Eos # (Auto) Baso # (Auto) Neutrophils % (Manual) Band Neutrophils % Lymphocytes % (Manual) Reactive Lymphs % Monocytes % (Manual) Eosinophils % (Manual) Toxic Granulation Platelet Estimate Large Platelets Hypochromasia (manual) Anisocytosis (manual) Ovalocytes PT 14.7 H INR 1.3 H APTT 35.9 Sodium Potassium Chloride Carbon Dioxide Anion Gap BUN Creatinine Est GFR ( Amer) Est GFR (Non-Af Amer) Random Glucose Lactic Acid Calcium Phosphorus Magnesium Total Bilirubin AST ALT Alkaline Phosphatase Total Protein Albumin Globulin Albumin/Globulin Ratio Lipase Attending/Attestation - Attestation I have personally seen and examined this patient.: Yes I have fully participated in the care of the patient.: Yes I have reviewed all pertinent clinical information: Yes Notes (Text): 03/15/18 18:53 Patient seen with GI fellow this am. This is a 42 yr old M with history of severe persistent asthma, gastritis, pancreatitis, vitiligo, NSTEMI and multifocal pneumonia, chronic back pain with recent colonoscopy two weeks ago showing multiple abscesses and ulcerations in the colon with skip lesions, not able to intubate the terminal ileum. Differential diagnosis was IBD vs eosinophilic colitis.Biopsy showed eosinophils with cryptitis and peripheral blood eosinophilia. Will start budesonide 9 mg for 12 weeks and then taper for 12 weeks and food elimination diet. Stool infectious work up negative. Can discontinue antibiotics. Diet as tolerated. Discussed with the primary team. [facility]
[2018-03-15] MEDS ORDERED: methylPREDNISolone 40 MG in Sodium Chloride 0.9% 50 ML IVPB SCH (09:00)
[2018-03-15] MEDS ORDERED: MESALAMINE 1600 MG PO SCH (09:00)
[2018-03-15] MEDS: Fluticasone-Salmeterol 500-50mcg Diskus INH SCH ×2 (09:24→18:29)
[2018-03-15] MEDS: Enoxaparin 40 mg Syringe SC SCH ×2 (09:24→09:47)
[2018-03-15] MEDS: MethylPREDNISolone 40 mg Vial IVP SCH (09:25)
[2018-03-15] MEDS: Pantoprazole 40 mg EC Tab PO SCH (09:25)
[2018-03-15] MEDS: Sodium Chloride 0.9% 1,000 ML IV SCH ×2 (10:31→21:29)
[2018-03-15] MEDS ORDERED: Barium Sulfate Susp 0.1% w/v, 0.1% w/w 450 mL Bottle PO ONE ×3 (12:00→12:40)
[2018-03-15] MEDS ORDERED: Barium Sulfate Susp 0.1% w/v, 0.1% w/w 450 mL Bottle PO SCH (12:00)
--- NOTE | 2018-03-15 12:12 | CP.PCM.CON ---
History of Present Illness - History of Present Illness History of Present Illness: General Surgery Dr. Hammond 42 y/o M w/ PMHx of ID, CHF, PNA, Asthma, gastritis, pancreatitis presented to the ED last evening c/o abd pain. Pt was discharged from [facility] on 03/13 s/p intractable abd pain. Pt was recently Dx w/ eosinophilic colitis seen on colonoscopy on 03/02. Pt states post-discharge he was given scripts for steroids as well as toradol/tramadol. Pt was unable to fill his script for steroid due to cost. Pt filled his toradol but left w/o his tramadol prescription. Pt reported uncontrolled abd pain at home w/ NBNB vomiting prompting his return to the ED. Pt admitted for intractable abd pain, now controlled w/ Tramadol. Pt currently denies F/C, N/V, D/C, abd pain. Pt states pain brought on by large meals. PMHx: see above Meds: reviewed in chart ALL: NKDA PSHx: I&D R thigh abscess, thermoablation SHx: denies tobacco, drug use. occasional EtOH FHx: noncontributory Review of Systems - Review of Systems All systems: reviewed and no additional remarkable complaints except (see HPI) Past Patient History - Infectious Disease Hx of Infectious Diseases: None - Past Medical History & Family History Past Medical History?: Yes - Past Social History Smoking Status: Never Smoked - CARDIAC Hx Congestive Heart Failure: Yes - PULMONARY Hx Asthma: Yes Hx Chronic Obstructive Pulmonary Disease (COPD): Yes Hx Pneumonia: Yes - NEUROLOGICAL Hx Neurological Disorder: No - HEENT Hx HEENT Problems: No - RENAL Hx Chronic Kidney Disease: No - ENDOCRINE/METABOLIC Hx Endocrine Disorders: No - HEMATOLOGICAL/ONCOLOGICAL Hx Human Immunodeficiency Virus (HIV): No - INTEGUMENTARY Hx Dermatological Problems: No - MUSCULOSKELETAL/RHEUMATOLOGICAL Hx Musculoskeletal Disorders: No - GASTROINTESTINAL Hx Diverticulitis: Yes Hx Gastritis: Yes Hx Pancreatitis: Yes - GENITOURINARY/GYNECOLOGICAL Hx Genitourinary Disorders: No - PSYCHIATRIC Hx Psychophysiologic Disorder: No Hx Substance Use: No - SURGICAL HISTORY Hx Surgeries: Yes Other/Comment: I&D LEG ABSCESS - ANESTHESIA Hx Anesthesia: Yes Hx Anesthesia Reactions: No Hx Malignant Hyperthermia: No Meds Allergies/Adverse Reactions: Allergies Allergy/AdvReac Type Severity Reaction Status Date / Time No Known Allergies Allergy Verified 03/11/18 17:12 - Medications Medications: Current Medications Albuterol Sulfate (Albuterol 0.083% Inhal Cassidy (2.5 Mg/3 Ml) Ud) 2.5 mg INH RQ6 PRN PRN Reason: Shortness of Breath Barium Sulfate (Volumen 450 Ml) 450 ml PO ONCE ONE Stop: 03/15/18 12:21 Last Admin: 03/15/18 12:00 Dose: 450 ml Barium Sulfate (Volumen 450 Ml) 450 ml PO ONCE ONE Stop: 03/15/18 12:41 Enoxaparin Sodium (Lovenox) 40 mg SC DAILY DARIEL PRN Reason: Protocol Last Admin: 03/15/18 09:47 Dose: Not Given Home Med (Mesalamine [Asacol Hd 800mg]) 1,600 mg PO TID [facility] Dextrose/Sodium Chloride (Dextrose 5%-0.9% Ns 500 Ml) 1,000 mls @ 100 mls/hr IV .Q10H [facility] Last Admin: 03/15/18 09:26 Dose: 100 mls/hr Sodium Chloride (Sodium Chloride 0.9%) 1,000 mls @ 100 mls/hr IV .Q10H [facility] Stop: 03/15/18 23:36 Last Admin: 03/15/18 10:31 Dose: 100 mls/hr Methylprednisolone (Solu-Medrol) 40 mg IVP DAILY [facility] Last Admin: 03/15/18 09:25 Dose: 40 mg Ondansetron HCl (Zofran Odt) 4 mg PO Q8H PRN PRN Reason: Nausea/Vomiting Pantoprazole Sodium (Protonix Ec Tab) 40 mg PO DAILY [facility] Last Admin: 03/15/18 09:25 Dose: 40 mg Fluticasone/Salmeterol (Advair Diskus 500/50) 1 puff INH BID [facility] Last Admin: 03/15/18 09:24 Dose: 1 inh Tramadol HCl (Ultram) 50 mg PO Q4 PRN PRN Reason: Pain, moderate (4-7) Last Admin: 03/15/18 10:20 Dose: 50 mg Physical Exam - Constitutional Appears: Non-toxic, No Acute Distress - Head Exam Head Exam: NORMAL INSPECTION - Eye Exam Eye Exam: Normal appearance - ENT Exam ENT Exam: Mucous Membranes Moist - Respiratory Exam Respiratory Exam: NORMAL BREATHING PATTERN. absent: Accessory Muscle Use, Respiratory Distress - Cardiovascular Exam Cardiovascular Exam: REGULAR RHYTHM. absent: Bradycardia, Tachycardia - GI/Abdominal Exam GI & Abdominal Exam: Soft. absent: Distended, Firm, Guarding, Tenderness - Extremities Exam Extremities exam: Positive for: normal inspection - Neurological Exam Neurological exam: Alert, Oriented x3 - Psychiatric Exam Psychiatric exam: Normal Affect, Normal Mood - Skin Skin Exam: Dry, Intact, Warm Additional comments: Vitiligo Results - Vital Signs Recent Vital Signs: Last Vital Signs Temp 97.5 F L 03/15/18 08:28 Pulse 86 03/15/18 08:28 Resp 20 03/15/18 08:28 BP 103/71 03/15/18 08:28 Pulse Ox 95 03/15/18 08:28 - Labs Result Diagrams: 03/14/18 22:25 03/14/18 22:25 Labs: Laboratory Results - last 24 hr 03/14/18 03/14/18 03/14/18 22:25 22:25 22:25 WBC 18.3 H RBC 4.65 Hgb 13.4 Hct 40.8 MCV 87.6 MCH 28.8 MCHC 32.9 L RDW 14.8 H Plt Count 294 MPV 8.6 Neut % (Auto) 44.7 L Lymph % (Auto) 14.6 L Wake % (Auto) 6.9 Eos % (Auto) 33.3 H Baso % (Auto) 0.5 Neut # (Auto) 8.2 H Lymph # (Auto) 2.7 Wake # (Auto) 1.3 H Eos # (Auto) 6.1 H Baso # (Auto) 0.1 Neutrophils % (Manual) 56 Band Neutrophils % 1 Lymphocytes % (Manual) 12 L Reactive Lymphs % 5 H Monocytes % (Manual) 6 Eosinophils % (Manual) 20 H Toxic Granulation Present Platelet Estimate Normal Large Platelets Present Hypochromasia (manual) Slight Anisocytosis (manual) Slight Ovalocytes Slight PT INR APTT Sodium 133 Potassium 3.7 Chloride 98 Carbon Dioxide 25 Anion Gap 14 BUN 13 Creatinine 1.1 Est GFR ( Amer) > 60 Est GFR (Non-Af Amer) > 60 Random Glucose 108 Lactic Acid 0.8 Calcium 8.4 Phosphorus 3.6 Magnesium 1.8 Total Bilirubin 0.6 AST 52 ALT 43 Alkaline Phosphatase 293 H Total Protein 6.9 Albumin 3.3 L Globulin 3.6 Albumin/Globulin Ratio 0.9 L Lipase 33 03/14/18 22:25 WBC RBC Hgb Hct MCV MCH MCHC RDW Plt Count MPV Neut % (Auto) Lymph % (Auto) Wake % (Auto) Eos % (Auto) Baso % (Auto) Neut # (Auto) Lymph # (Auto) Wake # (Auto) Eos # (Auto) Baso # (Auto) Neutrophils % (Manual) Band Neutrophils % Lymphocytes % (Manual) Reactive Lymphs % Monocytes % (Manual) Eosinophils % (Manual) Toxic Granulation Platelet Estimate Large Platelets Hypochromasia (manual) Anisocytosis (manual) Ovalocytes PT 14.7 H INR 1.3 H APTT 35.9 Sodium Potassium Chloride Carbon Dioxide Anion Gap BUN Creatinine Est GFR ( Amer) Est GFR (Non-Af Amer) Random Glucose Lactic Acid Calcium Phosphorus Magnesium Total Bilirubin AST ALT Alkaline Phosphatase Total Protein Albumin Globulin Albumin/Globulin Ratio Lipase Assessment & Plan - Assessment and Plan (Free Text) Assessment: 42 y/o M w/ recently Dx eosinophilic colitis w/ continued abd pain, now controlled w/ Tramadol - cont current pain management - cont colitis Tx per GI - ADAT per GI - monitor bowel fxn - cont medical management - encourage OOB to chair/Amb - no surgical intervention at this time. Pt seen and discussed w/ Dr. Manish Shin DO PGY3
[2018-03-15] MEDS ORDERED: Iodixanol 320 MG/ML 100 ML BOTTLE IV ONE (13:25)
[2018-03-15] MEDS ORDERED: Sodium Chloride 0.9% 50 ML IV ONE (13:25)
--- NOTE | 2018-03-15 16:37 | CP.PCM.PCO ---
Assessment/Plan - Assessment and Plan (Free Text) Assessment: Spoke with Dr Una Little to discharge patient SHe reviewed CTE- sm bowel is normal pt was already seen by surgery as well
[2018-03-16 08:24] VITALS: BP 104/71; PULSE 81; TEMP 97.5
[2018-03-16] MEDS: Fluticasone-Salmeterol 500-50mcg Diskus INH SCH (08:44)
[2018-03-16] MEDS: MethylPREDNISolone 40 mg Vial IVP SCH (08:44)
[2018-03-16] MEDS: Enoxaparin 40 mg Syringe SC SCH (08:45)
--- NOTE | 2018-03-16 09:41 | RAD ---
Date of service: 03/15/2018 PROCEDURE: Radiographs of the Lumbar Spine. HISTORY: back pain COMPARISON: No prior. FINDINGS: BONES: Normal alignment. No listhesis. No fracture. DISC SPACES: Disc space heights relatively maintained. The facet joints are slightly overgrown at the L5-S1 and to a lesser degree L4-L5 and L3-L4 levels. OTHER FINDINGS: None. IMPRESSION: . No acute fractures. Minor degenerative spondylosis
[2018-03-16] MEDS: Pantoprazole 40 mg EC Tab PO SCH (09:42)
[2018-03-16 10:11] VITALS: O2SAT 97
--- NOTE | 2018-03-16 12:57 | CP.PCM.DIS ---
Provider - Provider Date of Admission: 03/14/18 23:32 Attending physician: Rah Garcia MD Primary care physician: Vandana Vidales MD Time Spent in preparation of Discharge (in minutes): 35 Diagnosis - Discharge Diagnosis (1) Eosinophilic colitis Status: Acute (2) Abdominal pain Status: Acute Hospital Course - Lab Results Lab Results: Micro Results 03/14/18 00:01 Blood Blood Culture - Preliminary NO GROWTH AFTER 24 HOURS 03/14/18 01:00 Blood Blood Culture - Preliminary NO GROWTH AFTER 24 HOURS Most Recent Lab Values WBC 18.3 K/uL (4.8-10.8) H 03/14/18 22:25 RBC 4.65 Mil/uL (4.40-5.90) 03/14/18 22:25 Hgb 13.4 g/dL (12.0-18.0) 03/14/18 22:25 Hct 40.8 % (35.0-51.0) 03/14/18 22:25 MCV 87.6 fl (80.0-94.0) 03/14/18 22:25 MCH 28.8 pg (27.0-31.0) 03/14/18 22:25 MCHC 32.9 g/dL (33.0-37.0) L 03/14/18 22:25 RDW 14.8 % (11.5-14.5) H 03/14/18 22:25 Plt Count 294 K/uL (130-400) 03/14/18 22:25 MPV 8.6 fl (7.2-11.7) 03/14/18 22:25 Neut % (Auto) 44.7 % (50.0-75.0) L 03/14/18 22:25 Lymph % (Auto) 14.6 % (20.0-40.0) L 03/14/18 22:25 [place] % (Auto) 6.9 % (0.0-10.0) 03/14/18 22:25 Eos % (Auto) 33.3 % (0.0-4.0) H 03/14/18 22:25 Baso % (Auto) 0.5 % (0.0-2.0) 03/14/18 22:25 Neut # (Auto) 8.2 K/uL (1.8-7.0) H 03/14/18 22:25 Lymph # (Auto) 2.7 K/uL (1.0-4.3) 03/14/18 22:25 [place] # (Auto) 1.3 K/uL (0.0-0.8) H 03/14/18 22:25 Eos # (Auto) 6.1 K/uL (0.0-0.7) H 03/14/18 22:25 Baso # (Auto) 0.1 K/uL (0.0-0.2) 03/14/18 22:25 Neutrophils % (Manual) 56 % (42-75) 03/14/18 22:25 Band Neutrophils % 1 % (0-2) 03/14/18 22:25 Lymphocytes % (Manual) 12 % (20-50) L 03/14/18 22:25 Reactive Lymphs % 5 % (0-0) H 03/14/18 22:25 Monocytes % (Manual) 6 % (0-10) 03/14/18 22:25 Eosinophils % (Manual) 20 % (0-7) H 03/14/18 22:25 Toxic Granulation Present 03/14/18 22:25 Platelet Estimate Normal (NORMAL) 03/14/18 22:25 Large Platelets Present 03/14/18 22:25 Hypochromasia (manual) Slight 03/14/18 22:25 Anisocytosis (manual) Slight 03/14/18 22:25 Ovalocytes Slight 03/14/18 22:25 PT 14.7 Seconds (9.8-13.1) H 03/14/18 22:25 INR 1.3 (0.9-1.2) H 03/14/18 22:25 APTT 35.9 Seconds (25.6-37.1) 03/14/18 22:25 Sodium 133 mmol/l (132-148) 03/14/18 22:25 Potassium 3.7 MMOL/L (3.6-5.0) 03/14/18 22:25 Chloride 98 mmol/L (98-107) 03/14/18 22:25 Carbon Dioxide 25 mmol/L (22-30) 03/14/18 22:25 Anion Gap 14 (10-20) 03/14/18 22:25 BUN 13 mg/dl (9-20) 03/14/18 22:25 Creatinine 1.1 mg/dl (0.8-1.5) 03/14/18 22:25 Est GFR ( Amer) > 60 03/14/18 22:25 Est GFR (Non-Af Amer) > 60 03/14/18 22:25 Random Glucose 108 mg/dL (75-110) 03/14/18 22:25 Lactic Acid 0.8 MMOL/L (0.7-2.1) 03/14/18 22:25 Calcium 8.4 mg/dL (8.4-10.2) 03/14/18 22:25 Phosphorus 3.6 mg/dl (2.5-4.5) 03/14/18 22:25 Magnesium 1.8 MG/DL (1.6-2.3) 03/14/18 22:25 Total Bilirubin 0.6 mg/dl (0.2-1.3) 03/14/18 22:25 AST 52 U/L (17-59) 03/14/18 22:25 ALT 43 U/L (21-72) 03/14/18 22:25 Alkaline Phosphatase 293 U/L (38-126) H 03/14/18 22:25 Total Protein 6.9 G/DL (6.3-8.2) 03/14/18 22:25 Albumin 3.3 g/dL (3.5-5.0) L 03/14/18 22:25 Globulin 3.6 gm/dL (2.2-3.9) 03/14/18 22:25 Albumin/Globulin Ratio 0.9 (1.0-2.1) L 03/14/18 22:25 Lipase 33 U/L (23-300) 03/14/18 22:25 - Hospital Course Hospital Course: 42 y/o male with PMH of severe persistent asthma, gastritis, pancreatitis, vitiligo, NSTEMI and multifocal pneumonia, chronic back pain, Eosinophilic colitis recently diagnosed on last hospitalization on 03/11/18. THe patient was readmitted on 03/15/18 with c/o abdominal pain ,the patient also reported poor medication adherence with budesonide after discharge, during this hospital admission the patient was re-evaluated by GI, he was cleared by GI to advance diet as tolerated, today the patient denied any c/o N/V/D, fever, TEJEDA or abdominal pain. Patient was cleared to be D/c home, instructions give to start budesonide 9 mg po for 12 weeks and then taper dose according to GI recommendation, intiate elimination diet for eosinofilic colitis.The patient will continue f/u with his GI Dr. Heart in the office within a week. Discharge Exam - Head Exam Head Exam: ATRAUMATIC, NORMOCEPHALIC - Eye Exam Eye Exam: EOMI, PERRL - ENT Exam ENT Exam: Mucous Membranes Moist - Respiratory Exam Respiratory Exam: Clear to PA & Lateral. absent: Rales, Rhonchi, Wheezes - Cardiovascular Exam Cardiovascular Exam: REGULAR RHYTHM, +S1, +S2 - GI/Abdominal Exam GI & Abdominal Exam: Normal Bowel Sounds, Soft. absent: Organomegaly, Tenderness - Neurological Exam Neurological exam: Alert, CN II-XII Intact, Normal Gait, Oriented x3 - Psychiatric Exam Psychiatric exam: Normal Affect, Normal Mood - Skin Skin Exam: Normal Color, Warm Discharge Plan - Follow Up Plan Condition: STABLE Disposition: HOME/ ROUTINE Instructions: Acute Abdomen (Belly Pain), Adult (DC) Additional Instructions: follow up with primary MD 1 week follow up with Dr. Heart on March 19 go for lab work morning of GI follow up take medications as prescribed any worsening of symptoms return to ED Referrals: Naren Heart MD [Medical Doctor] - Vandana Vidales MD [Primary Care Provider] - Giacomo Hammond MD [Staff Provider] -
--- NOTE | 2018-03-17 12:03 | CT ---
Date of service: 03/15/2018 PROCEDURE: CT enterography HISTORY: abd pain, hx of duodenal ulcerations COMPARISON: Comparison is made to the previous CT of the abdomen and pelvis with contrast dated 03/10/2018 TECHNIQUE: Axial and reformatted coronal and sagittal CT images of the abdomen and pelvis were obtained after IV and low-density Volumen oral contrast administration. Total exam DLP 342.15 FINDINGS: There are solid nodules seen at the lower lobes. The largest nodule is seen at the right lower lobe measures 1.7 centimeter. No evidence of pleural effusion. Again noted is heterogeneous enhancement of the liver and scattered small hypodensity in the liver. The portal vein is patent. The gallbladder is contracted demonstrate diffuse wall thickening. Trace pericholecystic fluid is seen. No evidence of acute pathology in the pancreas spleen adrenal glands and in the kidneys. The stomach and duodenum are mildly distended. There is mild diffuse wall thickening noted in the stomach and proximal small bowel loops. No evidence of pneumatosis. Mild constipation is noted in the right colon. The previously noted long segment of right colon wall thickening is not clearly visualized in the current study. No evidence of free fluid or free air in the abdomen and pelvis. Mildly enlarged mesenteric lymph nodes are noted. The urinary bladder and prostate are grossly unremarkable. IMPRESSION: Mild thickening of the stomach and proximal small bowel wall suggestive of mild gastroenteritis. Noncalcified solid nodules noted at the lung bases with the largest nodule at the right lower lobe measures 1.7 centimeter. Mild constipation.
== END 2018-03-16 13:10 | disposition home or self-care (01) ==
LOC: H.ER 21:39 → H.ERHOLD 23:32 → H.MEDSURG1 03-15 01:02
PROVIDERS: ADMIT Family Medicine; ATTEND Family Medicine
DX: K52.82 Eosinophilic colitis (principal); E86.0 Dehydration; L80 Vitiligo; K29.70 Gastritis, unspecified, without bleeding; J45.50 Severe persistent asthma, uncomplicated; J44.9 Chronic obstructive pulmonary disease, unspecified; I25.2 Old myocardial infarction; G89.29 Other chronic pain; D72.829 Elevated white blood cell count, unspecified
CPT/HCPCS: 72114; 74177; 80053; 83605; 83690; 83735; 84100; 85025; 85610; 85730; 87040; 96374; 99284; C9113; G0378; J2920; J2930; J7030; J7042; Q9967

== ENCOUNTER 2018-03-30 23:23 | Emergency (ER) | payer MEDICAID ==
[2018-03-30 23:23] VITALS: BMI 21.2
[2018-03-30 23:28] VITALS: BP 109/74; RESP 20; TEMP 98.7
[2018-03-30] MEDS ORDERED: Sodium Chloride 0.9% 1,000 ML IV STA (23:32)
[2018-03-30 23:58] LABS: BASO # 0.1 K/uL (0.0-0.2); BASO % 0.5 % (0.0-2.0); EOS # 4.9 K/uL (0.0-0.7); EOS % 25.3 % (0.0-4.0); HEMOGLOBIN 14.3 g/dL (12.0-18.0); LYMPH # 2.7 K/uL (1.0-4.3); MEAN CELL VOLUME 87.3 fl (80.0-94.0); MEAN CORPUSCULAR HEMOGLOBIN 28.8 pg (27.0-31.0); MEAN PLATELET VOLUME 8.7 fl (7.2-11.7); MONO # 1.1 K/uL (0.0-0.8); MONO % 5.6 % (0.0-10.0); NEUT # 10.5 K/uL (1.8-7.0); NEUT % 54.6 % (50.0-75.0); PLATELET COUNT 315 K/uL (130-400); RBC 4.97 Mil/uL (4.40-5.90); RED CELL DISTRIBUTION WIDTH 14.7 % (11.5-14.5); WHITE BLOOD COUNT 19.2 K/uL (4.8-10.8)
--- NOTE | 2018-03-31 00:34 | ED PDOC ---
HPI: Abdomen Time Seen by Provider: 03/30/18 23:32 Chief Complaint (Nursing): GI Problem Chief Complaint (Provider): abdominal pain History Per: Patient History/Exam Limitations: no limitations Onset/Duration Of Symptoms: Hrs (x3) Current Symptoms Are (Timing): Still Present Associated Symptoms: Nausea, Vomiting. denies: Fever, Chills, Chest Pain Additional Complaint(s): Joaquin Avalos is a 42 year old male, with a past medical history of colitis and peptic ulcer disease, who presents to the emergency department complaining of abdominal pain associated with nausea and vomiting onset for x3 hrs. Patient reports approximately 20 episodes of vomiting despite taking his medications. Patient states he also has a sense of feeling restless. He denies any fever, chills, shortness of breath or chest pain. No further medical complaints. PMD: Dr. Heart, [facility] Past Medical History Reviewed: Historical Data, Nursing Documentation, Vital Signs Vital Signs: Last Vital Signs Temp 98.7 F 03/30/18 23:26 Pulse 109 H 03/30/18 23:26 Resp 20 03/30/18 23:26 BP 109/74 03/30/18 23:26 Pulse Ox 97 03/31/18 02:34 - Medical History PMH: Asthma, CHF, COPD, Diverticulitis, Gastritis, Pancreatitis, Pneumonia Denies: HIV, Chronic Kidney Disease Other PMH: Colitis, peptic ulcers and vitiligo - Surgical History Surgical History: No Surg Hx - Family History Family History: States: Unknown Family Hx - Social History Current smoker - smoking cessation education provided: No Alcohol: None Drugs: Denies - Home Medications Home Medications: Ambulatory Orders Medication Instructions Recorded Albuterol 0.5% [Albuterol 0.5% 1 ml IH Q6 PRN 02/09/18 Inhal Cassidy (2.5 mg/0.5 ml) UD] Fluticasone/Salmeterol 500/50 1 puff INH BID 03/11/18 [Advair Diskus 500/50] Omeprazole 40 mg PO DAILY 03/11/18 Budesonide [Pulmicort Respules] 9 mg IH DAILY 30 Days #30 neb 03/13/18 Ondansetron ODT [Zofran ODT] 4 mg PO Q8H PRN #20 odt 03/13/18 Ondansetron ODT [Zofran ODT] 4 mg PO Q6 PRN #8 odt 03/31/18 - Allergies Allergies/Adverse Reactions: Allergies Allergy/AdvReac Type Severity Reaction Status Date / Time No Known Allergies Allergy Verified 03/30/18 23:26 Review of Systems ROS Statement: Except As Marked, All Systems Reviewed And Found Negative Constitutional: Positive for: Other (feeling restless). Negative for: Fever, Chills Cardiovascular: Negative for: Chest Pain Respiratory: Negative for: Shortness of Breath Gastrointestinal: Positive for: Nausea, Vomiting (x20 episodes), Abdominal Pain Physical Exam - Reviewed Nursing Documentation Reviewed: Yes Vital Signs Reviewed: Yes - Physical Exam Appears: Positive for: No Acute Distress (restless) Head Exam: Positive for: ATRAUMATIC, NORMAL INSPECTION, NORMOCEPHALIC Skin: Positive for: Normal Color, Warm, Dry Eye Exam: Positive for: Normal appearance, EOMI, PERRL Neck: Positive for: Painless ROM Cardiovascular/Chest: Positive for: Regular Rate, Rhythm. Negative for: Murmur Respiratory: Positive for: Normal Breath Sounds. Negative for: Respiratory Distress Gastrointestinal/Abdominal: Positive for: Normal Exam, Soft. Negative for: Tenderness Back: Positive for: Normal Inspection Extremity: Positive for: Normal ROM (all extremities). Negative for: Deformity , Swelling Neurologic/Psych: Positive for: Alert, Oriented. Negative for: Motor/Sensory Deficits - Laboratory Results Result Diagrams: 03/30/18 23:50 03/30/18 23:50 - ECG O2 Sat by Pulse Oximetry: 97 (RA) Pulse Ox Interpretation: Normal Medical Decision Making Medical Decision Making: Time: 23:32 Initial Impression: 42 y/o male with abdominal pain in setting of known colitis and peptic ulcer disease Initial Plan: --EKG --CMP --Lipase --CBC w/ differential --Pepcid 20 mg IV --Ativan 2 mg IVP --Sodium Chloride 1,000 ml IV 1,000 mls//hr --Zofran Inj 4 mg IV --Reevaluation 02:30 -Labs reviewed and are significant for leukocytosis. Provider discussed CT with patient. Patient states hes had multiple CT scans and is concerned regarding radiation exposure. Given benign exam will defer CT for now and treat for dehydration. Will have GI evaluation in the morning. Case referred to Dr. Venu Duval, resident aviation operations specialist. 02:50 -Patient was evaluated by resident Dr. Duval who is familiar with patient and states he has a history of eosinophilic colitis. Patient reports significant improvement of symptoms. Elevated wbcs is likely related to patient being on budesonide and causing steroid induced leukocytosis. Patient is medically stable for discharge and was advised to follow up with clinic. Diagnosis eosinophilic colitis ----- Scribe Attestation: Documented by Junior Hylton, acting as a scribe for Teddy Bang MD. Provider Scribe Attestation: All medical record entries made by the Scribe were at my direction and personally dictated by me. I have reviewed the chart and agree that the record accurately reflects my personal performance of the history, physical exam, medical decision making, and the department course for this patient. I have also personally directed, reviewed, and agree with the discharge instructions and disposition. Disposition - Clinical Impression Clinical Impression: Eosinophilic colitis - Disposition Referrals: Vandana Vidales MD [Primary Care Provider] - Disposition: Against Medical Advice Disposition Time: 02:50 Condition: STABLE Prescriptions: Ondansetron ODT [Zofran ODT] 4 mg PO Q6 PRN #8 odt PRN Reason: Nausea/Vomiting Forms: [employer] (Swedish)
[2018-03-31 00:41] LABS: BLOOD UREA NITROGEN 15 mg/dl (9-20); GFR AFRICAN-AMERICAN > 60; GFR NON-AFRICAN AMERICAN > 60
[2018-03-31 00:42] LABS: ALB/GLOB RATIO 0.9 (1.0-2.1); ALBUMIN 3.9 g/dL (3.5-5.0); ALT/SGPT 25 U/L (21-72); AST/SGOT 32 U/L (17-59); CALCIUM 9.2 mg/dL (8.4-10.2); LIPASE 75 U/L (23-300)
[2018-03-31 02:49] LABS: EOSINOPHIL 23 % (0-7); LYMPHOCYTE 10 % (20-50); MONOCYTE 4 % (0-10); NEUTROPHIL 63 % (42-75); PLATELET ESTIMATE NORMAL (NORMAL); TOTAL CELLS COUNTED 100
[2018-03-31 03:02] VITALS: PULSE 92; O2SAT 99
--- NOTE | 2018-03-31 13:24 | CARD ---
APPROVED REPORT Date of service: 03/31/2018 EKG Measurement Heart [id number] <Conclusion> Normal sinus rhythm Anterior infarct, age undetermined Prolonged QT Abnormal ECG
== END 2018-03-31 03:04 | disposition home or self-care (01) ==
LOC: H.ER 23:23
DX: K52.82 Eosinophilic colitis (principal); K27.3 Acute peptic ulcer, site unspecified, without hemorrhage or perforation; J44.9 Chronic obstructive pulmonary disease, unspecified; K85.90 Acute pancreatitis without necrosis or infection, unspecified; I50.9 Heart failure, unspecified
CPT/HCPCS: 80053; 83690; 85025; 93005; 96360; 99283; J2405; J7030

== ENCOUNTER 2018-04-01 14:00 | Emergency (ER) | payer MEDICAID ==
[2018-04-01 14:00] VITALS: BMI 21.2
[2018-04-01 14:14] VITALS: TEMP 97.6; O2SAT 95
[2018-04-01] MEDS ORDERED: Oxycodone/Acetaminophen 5/325 mg Tab PO STA (14:49)
[2018-04-01] MEDS ORDERED: Sodium Chloride 0.9% 1,000 ML IV STA (14:49)
[2018-04-01] MEDS ORDERED: Albuterol-Ipratrop 3 mg / 0.5 (3 ml) UD INH STA (14:49)
--- NOTE | 2018-04-01 14:58 | ED PDOC ---
HPI: SOB/CHF/COPD Time Seen by Provider: 04/01/18 14:17 Chief Complaint (Nursing): Shortness Of Breath Chief Complaint (Provider): abdominal pain History Per: Patient History/Exam Limitations: no limitations Onset/Duration Of Symptoms: Hrs, Intermittent Episodes Current Symptoms Are (Timing): Still Present Quality: Sharp, Squeezing Location Of Discomfort (Image): 1 - c/o diffuse abdominal pain Associated Symptoms: Anxiety Recently: Seen In ED Additional History Per: Family ( present in room) Additional Complaint(s): CC: 'I have pain in my abdomen and I am short of breath" HPI: 42 y/o male with PMHx of Asthma, gastritis, vitiligo, NSTEMI, chronic back pain, PNA in October this year, recently diagnosed with Eosinophilic colitis at the beginning of this month by a colonoscopy biopsy done on , the patient was hospitalized on 03/11/18 with c/o abdominal pain and exacerbation of colitis, he was D/c on budesonide 9mg po Qd for Eosinophilic colitis and tramadol for pain. Patient states that 2 days ago he had several bouts of vomiting after taking zyquil liq and then he had to come to the ED because he started with abdominal pain, he states he received tx for the pain and went home , but since yesterday the pain started again and is severe 10/10 sharp and squeezing in her adbdomen and radiates to his back, he states he does not get relief with the Tramadol and that he uses Tylenol instead with little brief relief, at this time he denies nausea and states that the vomiting stopped and he has been tolerating food yesterday and today, he had diarrhea x1 today, denies hematochezia or melena, fever, chills, chest pain, dysuria or hematuria. Patient also c/o anxiety caused by the pain and SOB associated with it, he sates that he has used his ventolin and advair tx but has not gotten relief for his SOB. PMD: [facility] GI Doctor: Dr Heart Past Medical History Reviewed: Historical Data, Nursing Documentation, Vital Signs Vital Signs: Last Vital Signs Temp 97.6 F 04/01/18 14:13 Pulse 92 H 04/01/18 17:00 Resp 18 04/01/18 17:00 BP 110/70 04/01/18 17:00 Pulse Ox 95 04/01/18 17:56 - Medical History PMH: Asthma, CHF, COPD, Diverticulitis, Gastritis, Pancreatitis, Pneumonia Denies: HIV, Chronic Kidney Disease - Surgical History Other surgeries: Cardiac cath November/2017 - Family History Family History: States: Unknown Family Hx - Living Arrangements Living Arrangements: With Family - Social History Current smoker - smoking cessation education provided: No Alcohol: Social Drugs: Denies - Home Medications Home Medications: Ambulatory Orders Medication Instructions Recorded Albuterol 0.5% [Albuterol 0.5% 1 ml IH Q6 PRN 02/09/18 Inhal Cassidy (2.5 mg/0.5 ml) UD] Fluticasone/Salmeterol 500/50 1 puff INH BID 03/11/18 [Advair Diskus 500/50] Omeprazole 40 mg PO DAILY 03/11/18 Budesonide [Pulmicort Respules] 9 mg IH DAILY 30 Days #30 neb 03/13/18 Ondansetron ODT [Zofran ODT] 4 mg PO Q8H PRN #20 odt 03/13/18 Ondansetron ODT [Zofran ODT] 4 mg PO Q6 PRN #8 odt 03/31/18 Dicyclomine [Bentyl] 20 mg PO QID PRN #20 tab 04/01/18 traMADol [Ultram] 50 mg PO TID #15 tab 04/01/18 - Allergies Allergies/Adverse Reactions: Allergies Allergy/AdvReac Type Severity Reaction Status Date / Time No Known Allergies Allergy Verified 03/30/18 23:26 Curb-65 Severity Score - CURB-65 Severity Score Confusion: No Respiratory Rate greater than/equal to 30: No Systolic BP <90 or Diastolic BP less than/equal 60mmHg: No Age >64: No Curb-65 Score: 0 Percentage 30-day mortality: 0.6% Wells Criteria for PE - Wells Criteria for Pulmonary Embolism Clinical Signs and Symptoms of DVT: No P.E is #1 Diagnosis, or Equally Likely: No Heart Rate >100: Yes Immobilization at least 3 days;Surgery previous 4 weeks: No Previous, objectively diagnosed PE or DVT: No Hemoptysis: No Malignancy w/treatment within 6 months, or palliative: No Total Score: 1.5 Review of Systems ROS Statement: Except As Marked, All Systems Reviewed And Found Negative Physical Exam - Reviewed Nursing Documentation Reviewed: Yes Vital Signs Reviewed: Yes - Physical Exam Appears: Positive for: No Acute Distress, Uncomfortable Head Exam: Positive for: ATRAUMATIC, NORMOCEPHALIC Skin: Positive for: Warm, Dry Eye Exam: Positive for: EOMI. Negative for: Scleral icterus Neck: Positive for: Painless ROM, Supple Cardiovascular/Chest: Positive for: Regular Rate, Rhythm, Chest Non Tender Respiratory: Positive for: Wheezing (wheezing present bilateral) Gastrointestinal/Abdominal: Positive for: Bowel Sounds, Soft, Tenderness ( diffuse tenderness to palpation of abdomen), Guarding (voluntary guarding noted) . Negative for: Distended Extremity: Negative for: Pedal Edema Neurologic/Psych: Positive for: Alert, Oriented - Laboratory Results Result Diagrams: 04/01/18 15:20 04/01/18 15:20 - ECG O2 Sat by Pulse Oximetry: 95 Nebulizer Treatments/Peak Flow - Clinical Response Clinical Response: Improved Medical Decision Making Medical Decision Making: Labs were evaluated, WBC 18.8 secondary to chronic steroid use, currently is taking Budesonide 9mg PO QD at home for Eosinophilic colitis. -Dr Lua spoke to Dr Heart and recommendation were obtained to do CT scan of abd if not improvement of pain is obtained, and continue with steroid treatment as prescribed otherwise. -Patient pain is improved after receiving Bentyl 20 po x1 dose and tramadol 50 po x 1, and SOB resolved after nebulizer tx. -Decision is made to D/C patient home, instructions given to continue with home meds, and f/u appointment within a week. -Instructions given to return to ED if condition worsens. Disposition - Clinical Impression Clinical Impression: Abdominal pain - Patient ED Disposition Is Patient to be Admitted: No - Disposition Referrals: [facility] [Outside] (call today to set up appointment within a week) Disposition: Routine/Home Disposition Time: 16:47 Condition: IMPROVED Additional Instructions: Desha diet, drink plenty of fluids, continue your regular home medications. Prescriptions: Dicyclomine [Bentyl] 20 mg PO QID PRN #20 tab PRN Reason: abdominal pain traMADol [Ultram] 50 mg PO TID #15 tab Instructions: Inflammatory Bowel Disease, Chronic Pain, Taking Narcotics Safely Forms: [employer] (Senegalese)
[2018-04-01] MEDS: methylPREDNISolone 125 MG in Sodium Chloride 0.9% 50 ML IV STA ×2 (15:17→15:23)
[2018-04-01 15:34] LABS: BASO % 0.2 % (0.0-2.0); EOS # 7.8 K/uL (0.0-0.7); EOS % 41.5 % (0.0-4.0); HEMOGLOBIN 13.9 g/dL (12.0-18.0); LYMPH # 2.4 K/uL (1.0-4.3); LYMPH % 12.8 % (20.0-40.0); MEAN CELL VOLUME 88.1 fl (80.0-94.0); MEAN CORPUSCULAR HEMOGLOBIN 28.9 pg (27.0-31.0); MEAN CORPUSCULAR HGB CONC 32.8 g/dL (33.0-37.0); MEAN PLATELET VOLUME 8.8 fl (7.2-11.7); MONO # 1.1 K/uL (0.0-0.8); MONO % 5.8 % (0.0-10.0); NEUT # 7.5 K/uL (1.8-7.0); NEUT % 39.7 % (50.0-75.0); PLATELET COUNT 231 K/uL (130-400); RBC 4.79 Mil/uL (4.40-5.90); RED CELL DISTRIBUTION WIDTH 14.8 % (11.5-14.5); WHITE BLOOD COUNT 18.8 K/uL (4.8-10.8)
[2018-04-01 15:52] LABS: ALB/GLOB RATIO 0.9 (1.0-2.1); ALBUMIN 3.4 g/dL (3.5-5.0); ALT/SGPT 26 U/L (21-72); AST/SGOT 41 U/L (17-59); BLOOD UREA NITROGEN 12 mg/dl (9-20); CALCIUM 8.7 mg/dL (8.4-10.2); GFR NON-AFRICAN AMERICAN > 60
[2018-04-01 16:38] LABS: BANDS 2 % (0-2); EOSINOPHIL 15 % (0-7); LYMPHOCYTE 12 % (20-50); MONOCYTE 2 % (0-10); NEUTROPHIL 69 % (42-75); TOTAL CELLS COUNTED 100
[2018-04-01 16:40] LABS: PLATELET ESTIMATE NORMAL (NORMAL)
[2018-04-01 16:42] LABS: TOXIC GRANULATION PRESENT
--- NOTE | 2018-04-01 16:42 | RAD ---
Date of service: 04/01/2018 HISTORY: SOB COMPARISON: 02/09/2018. FINDINGS: LUNGS: No active pulmonary disease. PLEURA: No significant pleural effusion identified, no pneumothorax apparent. CARDIOVASCULAR: Normal. OSSEOUS STRUCTURES: No significant abnormalities. VISUALIZED UPPER ABDOMEN: Normal. OTHER FINDINGS: None. IMPRESSION: No active disease. No significant interval change compared to the prior examination(s).
--- NOTE | 2018-04-01 17:05 | CARD ---
APPROVED REPORT Date of service: 04/01/2018 EKG Measurement Heart [id number] <Conclusion> Normal sinus rhythm Rightward axis Nonspecific ST and T wave abnormality Abnormal ECG
[2018-04-01 17:45] VITALS: BP 110/70; PULSE 92; RESP 18
== END 2018-04-01 17:40 | disposition home or self-care (01) ==
LOC: H.ER 14:00
DX: R10.9 Unspecified abdominal pain (principal); R06.02 Shortness of breath; F41.9 Anxiety disorder, unspecified; G89.29 Other chronic pain; I25.2 Old myocardial infarction; I50.9 Heart failure, unspecified; J44.9 Chronic obstructive pulmonary disease, unspecified; K85.90 Acute pancreatitis without necrosis or infection, unspecified
CPT/HCPCS: 71045; 80053; 85025; 93005; 96374; 99284; J2930; J7030

== ENCOUNTER 2018-04-04 23:04 | Inpatient (IN) | payer MEDICAID ==
[2018-04-04 23:05] VITALS: BMI 21.2
[2018-04-05] MEDS ORDERED: Sodium Chloride 0.9% 1,000 ML IV STA (00:24)
[2018-04-05] MEDS ORDERED: Morphine 4 MG/ML VIAL IVP STA ×2 (01:00→06:33)
[2018-04-05 01:02] LABS: BASO # 0.1 K/uL (0.0-0.2); BASO % 0.5 % (0.0-2.0); EOS # 16.8 K/uL (0.0-0.7); EOS % 61.8 % (0.0-4.0); HEMOGLOBIN 13.7 g/dL (12.0-18.0); LYMPH # 3.2 K/uL (1.0-4.3); MEAN CELL VOLUME 87.5 fl (80.0-94.0); MEAN CORPUSCULAR HEMOGLOBIN 29.1 pg (27.0-31.0); MEAN CORPUSCULAR HGB CONC 33.3 g/dL (33.0-37.0); MEAN PLATELET VOLUME 8.3 fl (7.2-11.7); MONO # 1.2 K/uL (0.0-0.8); MONO % 4.5 % (0.0-10.0); NEUT # 5.7 K/uL (1.8-7.0); NEUT % 21.2 % (50.0-75.0); PLATELET COUNT 242 K/uL (130-400); RED CELL DISTRIBUTION WIDTH 14.6 % (11.5-14.5); WHITE BLOOD COUNT 27.1 K/uL (4.8-10.8)
[2018-04-05 01:19] LABS: ALB/GLOB RATIO 0.9 (1.0-2.1); ALBUMIN 3.4 g/dL (3.5-5.0); ALT/SGPT 29 U/L (21-72); AST/SGOT 39 U/L (17-59); BLOOD UREA NITROGEN 16 mg/dl (9-20); CALCIUM 9.1 mg/dL (8.4-10.2); GFR AFRICAN-AMERICAN > 60; GFR NON-AFRICAN AMERICAN > 60; LIPASE 26 U/L (23-300)
[2018-04-05] MEDS ORDERED: Morphine 4 MG/ML VIAL ONE ×2 (01:55→06:35)
[2018-04-05] MEDS ORDERED: Albuterol-Ipratrop 3 mg / 0.5 (3 ml) UD ONE ×3 (01:57→13:46)
[2018-04-05] MEDS: Albuterol-Ipratrop 3 mg / 0.5 (3 ml) UD IH SCH (01:58)
--- NOTE | 2018-04-05 02:07 | ED PDOC ---
HPI: Abdomen Chief Complaint (Provider): Abdominal Pain History Per: Patient History/Exam Limitations: no limitations Onset/Duration Of Symptoms: Days (x2) Current Symptoms Are (Timing): Still Present <Cristina Blanco PA-C - Last Filed: 04/05/18 16:41> <Henok Corona - Last Filed: 04/06/18 05:09> Time Seen by Provider: 04/04/18 23:33 Chief Complaint (Nursing): Abdominal Pain Additional Complaint(s): 42 year old male with pmhx of eosinophilic colitis presents to the ED for evaluation of abdominal pain. He reports the pain is to his periumbilical area associated with nausea since yesterday afternoon, unimproved with Tramadol last taken around 20:00 today. Otherwise: (-) vomiting, (-) diarrhea, (-) fever, (-) melena, (-) hematochezia, (-) urinary symptoms. Has no history of prior abdominal surgery. PMD: Vandana Vidales (Cristina Blanco PA-C) Past Medical History Reviewed: Historical Data, Nursing Documentation, Vital Signs - Medical History PMH: Asthma, CHF, COPD, Diverticulitis, Gastritis, Pancreatitis, Pneumonia Denies: HIV, Chronic Kidney Disease - Surgical History Other surgeries: I&D leg abscess - Family History Family History: States: Unknown Family Hx - Social History Current smoker - smoking cessation education provided: No Alcohol: None Drugs: Denies <Cristina Blanco PA-C - Last Filed: 04/05/18 16:41> <Henok Corona - Last Filed: 04/06/18 05:09> Vital Signs: Last Vital Signs Temp 98.0 F 04/05/18 23:23 Pulse 94 H 04/05/18 23:23 Resp 18 04/05/18 23:23 BP 108/80 04/05/18 23:23 Pulse Ox 95 04/05/18 23:23 - Home Medications Home Medications: Ambulatory Orders Medication Instructions Recorded Fluticasone/Salmeterol 500/50 1 puff INH Q12 03/11/18 [Advair Diskus 500/50] Omeprazole 40 mg PO DAILY 03/11/18 Albuterol Sulfate [Ventolin Hfa] 2 puff IH Q6 PRN 04/05/18 Budesonide [Entocort EC] 9 mg PO DAILY 04/05/18 Famotidine [Pepcid] 20 mg PO HS 04/05/18 Mesalamine [Asacol HD 800mg] 2 tab PO TID 04/05/18 Ondansetron ODT [Zofran ODT] 4 mg PO Q8 PRN 04/05/18 traMADol [Ultram] 50 mg PO Q6 PRN 04/05/18 - Allergies Allergies/Adverse Reactions: Allergies Allergy/AdvReac Type Severity Reaction Status Date / Time No Known Allergies Allergy Verified 03/30/18 23:26 Review of Systems ROS Statement: Except As Marked, All Systems Reviewed And Found Negative Constitutional: Negative for: Fever Gastrointestinal: Positive for: Nausea, Abdominal Pain (periumbilical). Negative for: Vomiting, Diarrhea, Melena, Hematochezia <Cristina Blanco PA-C - Last Filed: 04/05/18 16:41> Physical Exam - Reviewed Nursing Documentation Reviewed: Yes Vital Signs Reviewed: Yes <Cristina Blanco PA-C - Last Filed: 04/05/18 16:41> <Henok Corona - Last Filed: 04/06/18 05:09> - Physical Exam Comments: GENERAL APPEARANCE: Patient is awake, alert, oriented x 3, in mild painful distress. SKIN: Warm, dry; (-) cyanosis. EYES: (-) conjunctival pallor, (-) scleral icterus. ENMT: Mucous membranes dry. NECK: (-) tenderness, (-) stiffness, (-) lymphadenopathy. CHEST AND RESPIRATORY: (-) rales, (-) rhonchi, (+) expiratory wheezing bilaterally. HEART AND CARDIOVASCULAR: (-) irregularity; (-) murmur, (-) gallop. ABDOMEN AND GI: (-) distention. Bowel sounds active; (+) diffuse abdominal tenderness, (-) guarding, (-) rebound, (-) palpable masses, (-) CVA tenderness. EXTREMITIES: (-) deformity, (-) edema, (+) distal pulses. NEURO AND PSYCH: Mental status as above; (-) focal findings. (Cristina Blanco PA-C) - Laboratory Results Result Diagrams: 04/05/18 00:41 04/05/18 00:41 - ECG O2 Sat by Pulse Oximetry: 94 (RA) Pulse Ox Interpretation: Normal <Cristina Blanco PA-C - Last Filed: 04/05/18 16:41> - Laboratory Results Result Diagrams: 04/05/18 00:41 04/05/18 00:41 <Henok Corona - Last Filed: 04/06/18 05:09> Medical Decision Making <Cristina Blanco PA-C - Last Filed: 04/05/18 16:41> <Henok Corona - Last Filed: 04/06/18 05:09> Medical Decision Making: Time: 00:24 Initial Impression: abdominal pain Initial Plan: --CMP --Lipase --Urine dipstick --CBC with differential --Bentyl 20 mg PO --Duoneb 3 ml IH --Normal saline IV --Pepcid 20 mg IVP --Zofran 4 mg IVP 0100 Patient still c/o pain despite medications given. Patient given Morphine 4 mg IVP. Labs reviewed: WBC is 27. Pt has history of leukocytosis secondary to chronic steroid use, but usually WBC is between 17-19. Due to the patient's presentation and elevated WBC, CT abd /pelvis will be considered. 0230 On re-evaluation, patient reports minimal improvement of pain improvement of symptoms, denies any nausea at this time. On exam, patient remains AAOx3, in mild painful distress. Abdomen soft with general tenderness. CT A/P w/ Po and IV contrast ordered. 0500 Patient started drinking PO contrast. His pain and nausea is controlled at this time. CT still pending. Scribe Attestation: Documented by Shannon Gibson, acting as a scribe for Cristina Blanco PA-C. Provider Scribe Attestation: All medical record entries made by the Scribe were at my direction and personally dictated by me. I have reviewed the chart and agree that the record accurately reflects my personal performance of the history, physical exam, medical decision making, and the department course for this patient. I have also personally directed, reviewed, and agree with the discharge instructions and disposition. (Cristina Blanco PA-C) [address] Stevenson pending CT Patient stable (Henok Corona) Disposition - Disposition Disposition: Transfer of Care (Case endorsed to Dr. Stevenson at [address] and final disposition.) Disposition Time: 07:00 <Cristina Blanco PA-C - Last Filed: 04/05/18 16:41> - Disposition Disposition: Transfer of Care <Henok Corona - Last Filed: 04/06/18 05:09> - Clinical Impression Clinical Impression: Colitis, Sepsis - Disposition Condition: FAIR
[2018-04-05] MEDS ORDERED: Iohexol 240 (50 ml) PO ONE (02:34)
[2018-04-05 02:47] LABS: EOSINOPHIL 66 % (0-7); LYMPHOCYTE 9 % (20-50); MONOCYTE 5 % (0-10); NEUTROPHIL 17 % (42-75); REACTIVE LYMPHOCYTES 3 % (0-0); TOTAL CELLS COUNTED 100
[2018-04-05 02:48] LABS: PLATELET ESTIMATE NORMAL (NORMAL)
[2018-04-05] MEDS ORDERED: Iohexol 240 (50 ml) ONE (05:22)
[2018-04-05] MEDS ORDERED: Sodium Chloride 0.9% 50 ML IV ONE (07:29)
[2018-04-05] MEDS ORDERED: Iohexol 300 100 ML IJ ONE (07:29)
--- NOTE | 2018-04-05 09:04 | CT ---
Date of service: 04/05/2018 PROCEDURE: CT Abdomen and Pelvis with contrast HISTORY: pain, h/o colitis COMPARISON: Abdomen pelvis CT with contrast 03/15/2018. TECHNIQUE: Following oral and intravenous contrast administration, a CT examination of the abdomen and pelvis performed from the domes of the diaphragms to the symphysis pubis with reformatted datasets provided not only axial but also sagittal and coronal series. Contrast dose: Omnipaque 300, 95 cc Radiation dose: Total exam DLP = 277.95 mGy-cm. This CT exam was performed using one or more of the following dose reduction techniques: Automated exposure control, adjustment of the mA and/or kV according to patient size, and/or use of iterative reconstruction technique. FINDINGS: LOWER THORAX: Two pulmonary nodules at the right lower lobe are increased in size with the dominant nodule measures 2.7 x 2.4 cm compared to 1.7 cm greatest dimension on 03/15/2018 small nodule more medial in image 1 measuring 0.8 x 1.5 cm compared to 0.6 cm greatest dimension. 1.4 x 1.1 cm nodule previously measured only 0.4 cm greatest dimension. Additional right middle lobe new nodules are identified. LIVER: There is heterogeneous enhancement at the dome of the liver as well as at the anterior medial right lobe liver grade 2 0 lucencies are developing with the more lateral measuring 2.3 x 1.6 cm in the more medial measuring 2.4 x 1.4 cm. There are additional tiny lucencies scattered in the liver too small to characterize and there is a question of limited intrahepatic biliary dilatation as well. Consider possible developing right lobe hepatic metastases. Portal vein remains patent. GALLBLADDER AND BILE DUCTS: Unremarkable. PANCREAS: Unremarkable. No gross lesion or ductal dilatation. SPLEEN: Nonspecific mildly inhomogeneous enhancement seen throughout the liver. ADRENALS: Unremarkable. No mass. KIDNEYS AND URETERS: Unremarkable. No hydronephrosis. No solid mass. VASCULATURE: Unremarkable. No aortic aneurysm. BOWEL: There is thickening of the colon diffusely, pattern suggesting possible C difficile colitis. The upper mid rectum appears affected as well. Small bowel appears grossly unaffected. APPENDIX: Normal appendix. PERITONEUM: Unremarkable. No free fluid. No free air. LYMPH NODES: Unremarkable. No enlarged lymph nodes. BLADDER: Stable unremarkable urinary bladder. REPRODUCTIVE: Unremarkable. BONES: No acute fracture. OTHER FINDINGS: None. IMPRESSION: 1. Pattern most compatible diffuse colitis suggestive of C difficile infection and clinical correlation is recommended further. 2. No ascites, abscess or free intrarenal gas identified. 3. Potential developing hepatic metastases as discussed above. Mild intrahepatic biliary dilatation not excluded although no radiodense choledocholithiasis is appreciated or extrahepatic biliary dilatation. 4. Rapid enlargement of right lower lobe pulmonary masses suggestive of metastases.
[2018-04-05] MEDS ORDERED: Albuterol-Ipratrop 3 mg / 0.5 (3 ml) UD IH STA (09:57)
[2018-04-05] MEDS ORDERED: Piperacillin/Tazobact 3.375 GM in Sodium Chloride 0.9% 100 ML IVPB STA (11:08)
--- NOTE | 2018-04-05 11:13 | ED PDOC ---
- Laboratory Results Result Diagrams: 04/05/18 00:41 04/05/18 00:41 - ECG O2 Sat by Pulse Oximetry: 98 Disposition - Clinical Impression Clinical Impression: Colitis, Sepsis - POA Present On Arrival: None - Disposition Referrals: Vandana Vidales MD [Primary Care Provider] - Disposition: Admitted as In-Patient Disposition Time: 11:12 Forms: [employer] (Vietnamese)
[2018-04-05 11:39] LABS: VENOUS BLOOD GAS BASE EXCESS 0.5 mmol/L (0.0-2.0); VENOUS BLOOD GAS PCO2 41 mmHg (40-60); VENOUS BLOOD GAS PO2 66 mm/Hg (30-55)
[2018-04-05] MEDS ORDERED: Piperacillin/Tazobact 3.375 gm Inj IVPB ONE (12:04)
[2018-04-05] MEDS ORDERED: Vancomycin 1 g Inj ONE (12:05)
--- NOTE | 2018-04-05 13:21 | CP.PCM.HP ---
History of Present Illness - History of Present Illness History of Present Illness: 42 yo gentleman with PMHx of asthma, vitiligo, gastritis, NSTEMI and multifocal pneumonia, chronic back pain, with possibly eosinophilic colitis by colonoscopy biopsy. Present to ER due to abdominal pain that started yesterday at 10am. Pt state that pain is around the umbilical and right lumbar region, 10 out of 10 in severity, constant with no radiation. Pt state nothing make it worst, but walking make it better. Pt still have good appetite, he denies nausea, vomiting , diarrhea, constipation. Pt denies recent abx use, have not had any sick contact, denies eating raw food or overnight food, travel outside [place]. Pt denies fever, chills, dizziness, headache, chest pain, SOB, dysuria, polyuria. PMD : Dr. Markus Brand: NKDA, reports; pollen allergy Meds: Albuterol, Nebulizer, Symbicort, steroids, Omeprazole and tramadol PMH: asthma, gastritis, vitiligo, pancreatitis, NSTEMI and multifocal pneumonia , eosinophilic colitis by colonoscopy biopsy PSH: Thermoplasty 4 times procedures, last one on november 2017. Cardic cath november 2017 at [facility] SH: Drink socially , denies smoking or illicit drug use. FH: Father history of asthma and hypercholesterolemia. Mother history of trigeminal neuralgia. Next of Kin: : Briana Avalos: [phone] ED course: VS: afebrile, tachy, 94 ox sat PE: CV: RRR, normal S1, S2 resp: Clear on all quadrant abd: BS present, soft, non distended, tender on periumbilical area, no rebound, no guarding or rigidity Ct: Diffuse colitis suggest C.Diff, potential hepatic metastasis. Mild intrahepatic biliary dilation, rapid enlargement of R Lower lobe pulmonary masses suggest metastasis. labs: CBC : WBC 27.1, eosinophilia, CMP: WNL Except Alk Phos 185H , albumin 3.4L VBG WNL except PO2 66H, O2 sat 96.2H Tx: Bentyl 20 mg PO Duoneb 3 ml IH Normal saline IV Pepcid 20 mg IVP Zofran 4 mg IVP Morphine 4mg Ativan 1mg Toradol 30mg Pip/tazo Vancomycin Pt is admitted for evaluate for sepsis Present on Admission - Present on Admission Any Indicators Present on Admission: Yes Review of Systems - Review of Systems All systems: reviewed and no additional remarkable complaints except - Constitutional Constitutional: As Per HPI. absent: Anorexia, Fatigue, Fever, Weight Gain, Weight Loss, Weakness - EENT Eyes: As Per HPI Ears: As Per HPI Nose/Mouth/Throat: As Per HPI - Cardiovascular Cardiovascular: absent: Chest Pain, Chest Pain at Rest, Chest Pain with Activity , Claudication, Edema, Leg Edema, Leg Ulcers, Palpitations, Pedal Edema - Respiratory Respiratory: As Per HPI. absent: Cough, Wheezing, Snoring, Stridor, Pain on Inspiration - Gastrointestinal Gastrointestinal: As Per HPI, Abdominal Pain. absent: Belching, Bloating, Constipation, Diarrhea - Genitourinary Genitourinary: As Per HPI. absent: Dysuria, Hematuria, Pyuria, Nocturia - Reproductive: Male Reproductive:Male: As Per HPI - Musculoskeletal Musculoskeletal: absent: Abnormal Gait, Back Pain - Integumentary Integumentary: As Per HPI, Change in Pigmentation - Neurological Neurological: absent: Dizziness, Numbness, Headaches, Paresthesias, Radicular Pain - Psychiatric Psychiatric: absent: Change in Appetite, Depression, Mood Swings - Endocrine Endocrine: absent: Cold Intolorance, Fatigue, Heat Intolorance - Hematologic/Lymphatic Hematologic: As Per HPI Past Patient History - Infectious Disease Hx of Infectious Diseases: None - Past Medical History & Family History Past Medical History?: Yes - Past Social History Chewing Tobacco Use: No Cigar Use: No Alcohol: Social Drugs: Denies Home Situation {Lives}: With Family - CARDIAC Hx Congestive Heart Failure: Yes - PULMONARY Hx Asthma: Yes Hx Chronic Obstructive Pulmonary Disease (COPD): Yes Hx Pneumonia: Yes - NEUROLOGICAL Hx Neurological Disorder: No - HEENT Hx HEENT Problems: No - RENAL Hx Chronic Kidney Disease: No - ENDOCRINE/METABOLIC Hx Endocrine Disorders: No - HEMATOLOGICAL/ONCOLOGICAL Hx Human Immunodeficiency Virus (HIV): No - INTEGUMENTARY Hx Dermatological Problems: No - MUSCULOSKELETAL/RHEUMATOLOGICAL Hx Musculoskeletal Disorders: No - GASTROINTESTINAL Hx Diverticulitis: Yes Hx Gastritis: Yes Hx Pancreatitis: Yes - GENITOURINARY/GYNECOLOGICAL Hx Genitourinary Disorders: No - PSYCHIATRIC Hx Psychophysiologic Disorder: No Hx Substance Use: No - SURGICAL HISTORY Hx Surgeries: Yes Other/Comment: I&D LEG ABSCESS - ANESTHESIA Hx Anesthesia: Yes Hx Anesthesia Reactions: No Hx Malignant Hyperthermia: No Meds Allergies/Adverse Reactions: Allergies Allergy/AdvReac Type Severity Reaction Status Date / Time No Known Allergies Allergy Verified 03/30/18 23:26 Physical Exam - Constitutional Appears: Well, Non-toxic, No Acute Distress - Head Exam Head Exam: ATRAUMATIC, NORMAL INSPECTION, NORMOCEPHALIC - Eye Exam Eye Exam: EOMI, Normal appearance, PERRL Pupil Exam: NORMAL ACCOMODATION, PERRL - ENT Exam ENT Exam: Mucous Membranes Moist, Normal Exam - Neck Exam Neck exam: Positive for: Normal Inspection - Respiratory Exam Respiratory Exam: Wheezes, NORMAL BREATHING PATTERN - Cardiovascular Exam Cardiovascular Exam: REGULAR RHYTHM, +S1, +S2 - GI/Abdominal Exam GI & Abdominal Exam: Normal Bowel Sounds, Soft, Tenderness Additional comments: Periumbilical quadrant - Extremities Exam Extremities exam: Positive for: full ROM, normal inspection. Negative for: calf tenderness - Back Exam Back exam: NORMAL INSPECTION. absent: CVA tenderness (L), CVA tenderness (R) - Neurological Exam Neurological exam: Alert, Oriented x3 - Psychiatric Exam Psychiatric exam: Normal Affect, Normal Mood - Skin Skin Exam: Dry, Intact, Normal Color, Warm Results - Vital Signs Recent Vital Signs: Last Vital Signs Temp 98.2 F 04/05/18 12:37 Pulse 96 H 04/05/18 12:37 Resp 20 04/05/18 12:37 BP 109/59 L 04/05/18 12:37 Pulse Ox 98 04/05/18 12:37 - Labs Result Diagrams: 04/05/18 00:41 04/05/18 00:41 Labs: Laboratory Results - last 24 hr 04/05/18 04/05/18 04/05/18 00:41 00:41 11:30 WBC 27.1 H RBC 4.70 Hgb 13.7 Hct 41.1 MCV 87.5 MCH 29.1 MCHC 33.3 RDW 14.6 H Plt Count 242 MPV 8.3 Neut % (Auto) 21.2 L Lymph % (Auto) 12.0 L Barbour % (Auto) 4.5 Eos % (Auto) 61.8 H Baso % (Auto) 0.5 Neut # (Auto) 5.7 Lymph # (Auto) 3.2 Barbour # (Auto) 1.2 H Eos # (Auto) 16.8 H Baso # (Auto) 0.1 Neutrophils % (Manual) 17 L Lymphocytes % (Manual) 9 L Reactive Lymphs % 3 H Monocytes % (Manual) 5 Eosinophils % (Manual) 66 H Platelet Estimate Normal RBC Morphology Normal pO2 66 H VBG pH 7.40 VBG pCO2 41 VBG HCO3 25.2 VBG Total CO2 26.7 VBG O2 Sat (Calc) 96.2 H VBG Base Excess 0.5 VBG Potassium 3.8 Glucose 75 Lactate 0.9 FiO2 21.0 Sodium 139 133.0 Potassium 4.2 Chloride 100 101.0 Carbon Dioxide 29 Anion Gap 14 BUN 16 Creatinine 1.1 Est GFR ( Amer) > 60 Est GFR (Non-Af Amer) > 60 Random Glucose 88 Calcium 9.1 Total Bilirubin 0.8 AST 39 ALT 29 Alkaline Phosphatase 185 H Total Protein 7.2 Albumin 3.4 L Globulin 3.9 Albumin/Globulin Ratio 0.9 L Lipase 26 Venous Blood Potassium 3.8 Assessment & Plan - Assessment and Plan (Free Text) Assessment: 42 yo male with PMH of Severe Persistent asthma, gastritis, pancreatitis, and recent diagnosed with Eosinophilic colitis being admitted to evaluate sepsis. Abdominal Pain Evaluate for sepsis Vital: afebrile, tackycardia WBC 27, eosinophilia Telemetry unit Most likley sec extensive colonic inflammation/Eosinophilic colitis Ct: Diffuse colitis suggest C.Diff, potential hepatic metastasis. Mild intrahepatic biliary dilation, rapid enlargement of R Lower lobe pulmonary masses suggest metastasis. Protonix 40 mg IV once Lipase normal on admission Lactic acid normal F/U CBC F/U BMP F/U procalcitonin Monitor vitals Vq6 NPO Leukocytosis Afebrile Persistent, chronic Most likely Eosinophilia H/O Severe persistent Asthma On physical exam wheezing was heard methylprednisolone 80mg given Budesonide Continue home Fluticasone/salmeterol BID Albuterol inh PRN DVT prophylaxis lovenox 40 mg SC SCDs
[2018-04-05] MEDS ORDERED: Albuterol HFA 90 mcg/actuation (8 g) IH PRN (13:50)
[2018-04-05] MEDS ORDERED: Albuterol-Ipratrop 3 mg / 0.5 (3 ml) UD INH STA (14:05)
[2018-04-05] MEDS ORDERED: methylPREDNISolone 80 MG in Sodium Chloride 0.9% 50 ML IVPB ONE (14:06)
[2018-04-05] MEDS ORDERED: MethylPREDNISolone 40 mg Vial ONE (14:33)
[2018-04-05] MEDS: Fluticasone-Salmeterol 500-50mcg Diskus INH SCH (23:26)
[2018-04-06] MEDS ORDERED: Morphine 4 MG/ML VIAL ONE ×2 (01:15→06:14)
[2018-04-06] MEDS: Dextrose 5%/0.45% NS 1,000 ML IV SCH ×4 (01:21→22:56)
--- NOTE | 2018-04-06 06:40 | CP.PCM.PN ---
Subjective - Date & Time of Evaluation Date of Evaluation: 04/06/18 Time of Evaluation: 07:00 - Subjective Subjective: Pt is seen and examined at bed side. No acute event over night. Pt still complain of abd pain and demand medication for pain, which always improves it. Pt have no other complain at moment. Pt state he have not passed BM but have passed gas. Pt denies fever, chills , headache, SOB, Chest pain, dysuria or polyuria. Objective - Vital Signs/Intake and Output Vital Signs (last 24 hours): Temp Pulse Resp BP Pulse Ox 98.0 F 94 H 18 108/80 95 04/05/18 23:23 04/05/18 23:23 04/05/18 23:23 04/05/18 23:23 04/05/18 23:23 - Medications Medications: Current Medications Albuterol (Ventolin Hfa 90 Mcg/Actuation (8 G)) 2 puff IH Q6 PRN PRN Reason: Shortness of Breath Enoxaparin Sodium (Lovenox) 40 mg SC DAILY [facility] PRN Reason: Protocol Famotidine (Pepcid) 20 mg PO [facility] Last Admin: 04/05/18 23:24 Dose: 20 mg Home Med (Budesonide [Entocort Ec]) 9 mg PO DAILY [facility] Dextrose/Sodium Chloride (Dextrose 5%/0.45% Ns 1000 Ml) 1,000 mls @ 125 mls/hr IV .Q8H [facility] Stop: 04/06/18 23:39 Last Admin: 04/06/18 01:21 Dose: 125 mls/hr Montelukast Sodium (Singulair) 10 mg PO [facility] Last Admin: 04/05/18 23:36 Dose: Not Given Morphine Sulfate (Morphine) 4 mg IVP Q6H PRN PRN Reason: Pain, severe (8-10) Last Admin: 04/06/18 06:18 Dose: 4 mg Pantoprazole Sodium (Protonix Inj) 40 mg IVP DAILY [facility] Fluticasone/Salmeterol (Advair Diskus 500/50) 1 puff INH Q12 [facility] Last Admin: 04/05/18 23:26 Dose: 1 puff Tramadol HCl (Ultram) 50 mg PO Q6 PRN PRN Reason: Pain, moderate (4-7) - Labs Labs: 04/05/18 00:41 04/05/18 00:41 - Constitutional Appears: Well, Non-toxic, No Acute Distress - Head Exam Head Exam: ATRAUMATIC, NORMAL INSPECTION, NORMOCEPHALIC - Eye Exam Eye Exam: EOMI, Normal appearance, PERRL Pupil Exam: NORMAL ACCOMODATION, PERRL - ENT Exam ENT Exam: Mucous Membranes Moist, Normal Exam - Neck Exam Neck Exam: Full ROM, Normal Inspection - Respiratory Exam Respiratory Exam: Clear to Ausculation Bilateral, NORMAL BREATHING PATTERN Additional comments: wheez improving - Cardiovascular Exam Cardiovascular Exam: REGULAR RHYTHM, +S1, +S2 - GI/Abdominal Exam GI & Abdominal Exam: Soft, Tenderness, Normal Bowel Sounds - Extremities Exam Extremities Exam: Full ROM, Normal Capillary Refill, Normal Inspection - Back Exam Back Exam: NORMAL INSPECTION - Neurological Exam Neurological Exam: Alert, Awake, Normal Gait, Oriented x3 - Psychiatric Exam Psychiatric exam: Normal Affect, Normal Mood - Skin Skin Exam: Dry, Intact, Normal Color, Warm Assessment and Plan - Assessment and Plan (Free Text) Assessment: 42 yo male with PMH of Severe Persistent asthma, gastritis, pancreatitis, and recent diagnosed with Eosinophilic colitis being admitted to evaluate sepsis. Abdominal Pain Evaluate for sepsis Sepsis resolving Vital: afebrile, tachycardia Lipase normal on admission Lactic acid normal Transfer to [facility] extensive colonic inflammation/Eosinophilic colitis Ct: Diffuse colitis suggest C.Diff, potential hepatic metastasis. Mild intrahepatic biliary dilation, rapid enlargement of R Lower lobe pulmonary masses suggest metastasis. CBC WNL WBC 27--> 15.1 BMP WNL Procalcitonin 0.08L GI Consulted Continue PPI therapy Continue Pepcid Continue home budesonide Start Amitryptiline 10mg qhs for abdominal cramps and insomnia F/U Stool studies culture, ova/parasites Consult IR for liver biopsy Patient has outpt appt for nasal bx to evaluate for vasculitis Regular diet Leukocytosis Improved Afebrile Persistent, chronic Most likely Eosinophilia WBC drop from 27 to 15.1 chronic persistent Asthma improved Continue home Fluticasone/salmeterol BID Albuterol inh PRN DVT prophylaxis lovenox 40 mg SC SCDs
[2018-04-06] MEDS ORDERED: Enoxaparin 40 mg Syringe SC SCH (09:00)
[2018-04-06] MEDS ORDERED: BUDESONIDE 9 MG PO SCH (09:00)
[2018-04-06] MEDS: Fluticasone-Salmeterol 500-50mcg Diskus INH SCH ×2 (10:42→21:57)
--- NOTE | 2018-04-06 10:49 | CP.PCM.CON ---
<DaigreyartisJulio - Last Filed: 04/06/18 16:12> History of Present Illness - History of Present Illness History of Present Illness: GI Fellow PGY4, Consult note. Joaquin Avalos is a 42yo M with history of eosinophilic colitis, asthma, vitiligo , gastritis, PUD presenting with acute abdoimnal pain. Abdominal pain started 1 day ago, reports 10/10 periumbilical, non radiating. Denies n/v/d/c, sick contacts or travel. He has been seen by Dr. Heart several times and current on a steroid regimen and omeprazole. EGD/Colonoscopy 02/22 shoed Mimi esophagitis, gastric/duodenal ulcers, eosinophilic colitis. DDx at that time included allergic enteritis, IBD, parastic infestation, vasculitis. He was placed on cipro, flagyl, asacol at that time. He has been taking budesonide PO. On admission he had significant leukocytosis with predominant eosinophilia 66%, and CMP remarkable for mildly elevated alk phos. CT reveal lung nodules, liver lesions, as large as 2.4cm and mild intrahepatic biliary dilation. Colon with diffuse thickening. PMH: asthma, gastritis, vitiligo, pancreatitis, NSTEMI and multifocal pneumonia , PUD, Eosinophilic colitis. PSH: Thermoplasty 4 times procedures, last one on november 2017. Cardic cath november 2017 at [facility] SH: Patient reports social alcohol use, denies smoking or illicit drug use FH: Father, alive, hx of asthma and hypercholesterolemia. Mother, alive, hx of trigeminal neuralgia. 12pt ROS completed and negative except for above. Past Patient History - Infectious Disease Hx of Infectious Diseases: None - Past Medical History & Family History Past Medical History?: Yes - Past Social History Smoking Status: Never Smoked - CARDIAC Hx Congestive Heart Failure: Yes - PULMONARY Hx Asthma: Yes Hx Chronic Obstructive Pulmonary Disease (COPD): Yes Hx Pneumonia: Yes - NEUROLOGICAL Hx Neurological Disorder: No - HEENT Hx HEENT Problems: No - RENAL Hx Chronic Kidney Disease: No - ENDOCRINE/METABOLIC Hx Endocrine Disorders: No - HEMATOLOGICAL/ONCOLOGICAL Hx Human Immunodeficiency Virus (HIV): No - INTEGUMENTARY Hx Dermatological Problems: No - MUSCULOSKELETAL/RHEUMATOLOGICAL Hx Falls: No - GASTROINTESTINAL Hx Diverticulitis: Yes Hx Gastritis: Yes Hx Pancreatitis: Yes - GENITOURINARY/GYNECOLOGICAL Hx Genitourinary Disorders: No - PSYCHIATRIC Hx Substance Use: No - SURGICAL HISTORY Hx Surgeries: Yes Other/Comment: I&D LEG ABSCESS - ANESTHESIA Hx Anesthesia: Yes Hx Anesthesia Reactions: No Hx Malignant Hyperthermia: No Meds Allergies/Adverse Reactions: Allergies Allergy/AdvReac Type Severity Reaction Status Date / Time No Known Allergies Allergy Verified 03/30/18 23:26 - Medications Medications: Current Medications Albuterol (Ventolin Hfa 90 Mcg/Actuation (8 G)) 2 puff IH Q6 PRN PRN Reason: Shortness of Breath Enoxaparin Sodium (Lovenox) 40 mg SC DAILY [facility] PRN Reason: Protocol Famotidine (Pepcid) 20 mg PO HS [facility] Last Admin: 04/05/18 23:24 Dose: 20 mg Dextrose/Sodium Chloride (Dextrose 5%/0.45% Ns 1000 Ml) 1,000 mls @ 125 mls/hr IV .Q8H [facility] Stop: 04/06/18 23:39 Last Admin: 04/06/18 01:21 Dose: 125 mls/hr Montelukast Sodium (Singulair) 10 mg PO [facility] Last Admin: 04/05/18 23:36 Dose: Not Given Morphine Sulfate (Morphine) 4 mg IVP Q6H PRN PRN Reason: Pain, severe (8-10) Last Admin: 04/06/18 06:18 Dose: 4 mg Pantoprazole Sodium (Protonix Inj) 40 mg IVP DAILY [facility] Fluticasone/Salmeterol (Advair Diskus 500/50) 1 puff INH Q12 [facility] Last Admin: 04/06/18 10:42 Dose: 1 puff Tramadol HCl (Ultram) 50 mg PO Q6 PRN PRN Reason: Pain, moderate (4-7) Physical Exam - Constitutional Appears: Non-toxic, No Acute Distress, Chronically Ill - Head Exam Head Exam: NORMAL INSPECTION - Eye Exam Eye Exam: EOMI, Normal appearance - Respiratory Exam Respiratory Exam: Clear to Auscultation Bilateral, NORMAL BREATHING PATTERN. absent: Wheezes - Cardiovascular Exam Cardiovascular Exam: REGULAR RHYTHM, +S1, +S2 - GI/Abdominal Exam GI & Abdominal Exam: Normal Bowel Sounds. absent: Distended, Guarding, Organomegaly - Neurological Exam Neurological exam: Alert, CN II-XII Intact, Oriented x3 - Psychiatric Exam Psychiatric exam: Agitated, Anxious - Skin Skin Exam: Intact, Warm Additional comments: vitiligo Results - Vital Signs Recent Vital Signs: Last Vital Signs Temp 98 F 04/06/18 07:43 Pulse 98 H 04/06/18 07:43 Resp 20 04/06/18 07:43 BP 115/82 04/06/18 07:43 Pulse Ox 98 04/06/18 07:43 - Labs Result Diagrams: 04/06/18 14:00 04/06/18 14:00 Labs: Laboratory Results - last 24 hr 04/05/18 04/05/18 00:41 11:30 pO2 66 H VBG pH 7.40 VBG pCO2 41 VBG HCO3 25.2 VBG Total CO2 26.7 VBG O2 Sat (Calc) 96.2 H VBG Base Excess 0.5 VBG Potassium 3.8 Glucose 75 Lactate 0.9 FiO2 21.0 Sodium 139 133.0 Potassium 4.2 Chloride 100 101.0 Carbon Dioxide 29 Anion Gap 14 BUN 16 Creatinine 1.1 Est GFR ( Amer) > 60 Est GFR (Non-Af Amer) > 60 Random Glucose 88 Calcium 9.1 Total Bilirubin 0.8 AST 39 ALT 29 Alkaline Phosphatase 185 H Total Protein 7.2 Albumin 3.4 L Globulin 3.9 Albumin/Globulin Ratio 0.9 L Lipase 26 Venous Blood Potassium 3.8 Assessment & Plan - Assessment and Plan (Free Text) Assessment: 42M with hx of eosinophilia presenting with acute abdominal pain and found to have pancolitis, liver and lung lesions #Eosinophilic Colitis #Abdominal pain #Peptic Ulcer disease #Liver lesion #Intrahepatic biliary dilation #Lung lesion #Asthma #Vitiligo Plan: -Afeb/HDS -Continue supportive care -CT reviewed and noted enlarging liver/lung mass, diffuse colitis. -Stool studies culture, ova/parasites -Continue PPI therapy -Continue home budesonide -Start amitryptiline 10mg qhs for abdominal cramps and insomnia -Consult IR for liver biopsy -Regular diet -Patient has outpt appt for nasal bx to r/o vasculitis - Date & Time Date: 04/06/18 Time: 10:53 <Naren Heart - Last Filed: 04/06/18 16:30> Meds - Medications Medications: Current Medications Albuterol (Ventolin Hfa 90 Mcg/Actuation (8 G)) 2 puff IH Q6 PRN PRN Reason: Shortness of Breath Amitriptyline HCl (Elavil) 10 mg PO HS [facility] Enoxaparin Sodium (Lovenox) 40 mg SC DAILY [facility] PRN Reason: Protocol Last Admin: 04/06/18 10:00 Dose: Not Given Famotidine (Pepcid) 20 mg PO HS [facility] Last Admin: 04/05/18 23:24 Dose: 20 mg Home Med (Patient's Own Medication) 3 unit PO DAILY [facility] Dextrose/Sodium Chloride (Dextrose 5%/0.45% Ns 1000 Ml) 1,000 mls @ 125 mls/hr IV .Q8H [facility] Stop: 04/06/18 23:39 Last Admin: 04/06/18 11:51 Dose: 125 mls/hr Lidocaine (Lidoderm) 1 ea TD DAILY [facility] Montelukast Sodium (Singulair) 10 mg PO HS [facility] Last Admin: 04/05/18 23:36 Dose: Not Given Morphine Sulfate (Morphine) 4 mg IVP Q6H PRN PRN Reason: Pain, severe (8-10) Last Admin: 04/06/18 15:08 Dose: 4 mg Pantoprazole Sodium (Protonix Inj) 40 mg IVP DAILY [facility] Last Admin: 04/06/18 10:00 Dose: Not Given Fluticasone/Salmeterol (Advair Diskus 500/50) 1 puff INH Q12 [facility] Last Admin: 04/06/18 10:42 Dose: 1 puff Tramadol HCl (Ultram) 50 mg PO Q6 PRN PRN Reason: Pain, moderate (4-7) Results - Vital Signs Recent Vital Signs: Last Vital Signs Temp 98.9 F 04/06/18 15:12 Pulse 97 H 04/06/18 15:12 Resp 17 04/06/18 15:12 BP 127/78 04/06/18 15:12 Pulse Ox 98 04/06/18 15:12 - Labs Result Diagrams: 04/06/18 14:00 04/06/18 14:00 Labs: Laboratory Results - last 24 hr 04/05/18 04/06/18 04/06/18 00:41 14:00 14:00 WBC 15.1 H RBC 4.85 Hgb 13.9 Hct 42.0 MCV 86.5 MCH 28.7 MCHC 33.2 RDW 14.4 Plt Count 244 MPV 8.5 Neut % (Auto) 72.4 Lymph % (Auto) 13.5 L [place] % (Auto) 6.5 Eos % (Auto) 7.4 H Baso % (Auto) 0.2 Neut # (Auto) 10.9 H Lymph # (Auto) 2.0 [place] # (Auto) 1.0 H Eos # (Auto) 1.1 H Baso # (Auto) 0.0 Sodium 139 140 Potassium 4.2 4.9 Chloride 100 101 Carbon Dioxide 29 28 Anion Gap 14 16 BUN 16 16 Creatinine 1.1 0.9 Est GFR ( Amer) > 60 > 60 Est GFR (Non-Af Amer) > 60 > 60 Random Glucose 88 104 Calcium 9.1 9.2 Total Bilirubin 0.8 0.5 AST 39 34 ALT 29 27 Alkaline Phosphatase 185 H 182 H Total Protein 7.2 7.4 Albumin 3.4 L 3.5 Globulin 3.9 3.9 Albumin/Globulin Ratio 0.9 L 0.9 L Lipase 26 Attending/Attestation - Attestation I have personally seen and examined this patient.: Yes I have fully participated in the care of the patient.: Yes I have reviewed all pertinent clinical information: Yes Notes (Text): 04/06/18 16:22 Patient seen with GI fellow at bedside. This is a 42 yr old male patient with hx of eosinophilia, colitis on budenoside 9 mg daily, presenting with acute abdominal pain and found to have pancolitis, liver and lung lesions. Had increased IgG on serological testing with intra hepatic dilattaion. 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 Will benefit with EUS and FNA for liver/ bile lesions or iR biopsy. Needs rheumatology consult for vasculitis and rule out IgG4. Will start amitryptiline SNRI at small dose for abdominal cramps and sleep. Regular diet as tolerated. Discussed in detail with PMD, patient and his at the bedside.
--- NOTE | 2018-04-06 12:36 | PQF ---
PROVIDER RESPONSE TEXT: H/o severe persistent asthma- nebs continued Steroids were given for esosinophilic coilits REVIEWER QUERY TEXT: Acuity Specificity H/O Severe Persistent Asthma is documented in the Medical Record. Please specify the acuity of this c ondition with terms such as: -- Acute Exacerbation of Severe Persistent Asthma -- Chronic -- Acute on chronic -- Other (please specify in the medical record) The patient's Clinical Indicators include: H/O Severe persistent Asthma On physical exam wheezing was heard methylprednisolone 80mg given Budesonide Continue home Fluticasone/salmeterol BID Albuterol inh PRN Query created by: Sol Borges on 04/06/2018 9:23 AM Electronically signed by: Vandana Vidales MD 04/06/2018 12:33 PM
--- NOTE | 2018-04-06 13:22 | US ---
Date of service: 04/06/2018 HISTORY: Abdominal pain, elevated alk phos COMPARISON: Abdomen pelvis CT with contrast 04/05/2018. TECHNIQUE: Sonographic evaluation of the abdomen. FINDINGS: LIVER: Measures 14.7 cm. Normal echogenicity of the liver parenchyma. However, there are 2 small anechoic foci identified which are also avascular at the medial left lobe liver measure 1.2 x 0.6 x 0.8 cm and 0.9 x 0.7 x 0.8 cm suggestive of small cysts which correspond to small lucencies near the falciform ligament at the left lobe. No definitive mass is appreciated that would correspond to inhomogeneous enhancement identified at the medial right lobe liver in CT 04/05/2018. This is not exclude the potential presence of masses here. No intrahepatic bile duct dilatation. GALLBLADDER: A distended gallbladder is appreciate without mural thickening or pericholecystic fluid collection. No associated cholelithiasis or reported sonographic Haque sign. COMMON BILE DUCT: Measures 3.0 mm. No stones. No dilatation. PANCREAS: Unremarkable as visualized. No mass. No ductal dilatation. RIGHT KIDNEY: Measures 11.1cm. Normal echogenicity. No calculus, mass, or hydronephrosis. LEFT KIDNEY: Measures 10.5cm. Normal echogenicity. No calculus, mass, or hydronephrosis. SPLEEN: Normal in size and contour, measuring 9.5 cm. No mass. AORTA: No aneurysmal dilatation. IVC: Unremarkable. OTHER FINDINGS: None. IMPRESSION: 1. Two small cysts is seen at the medial left lobe liver. Ill defined areas of poor enhancement at the medial right lobe liver do not correspond to these findings with no additional hepatic findings appreciated at this time. Solid hepatic lesions are not excluded nevertheless. MRI follow-up without and with contrast may be helpful. 2. Distended but otherwise unremarkable gallbladder. Remainder of the examination appears unremarkable.
[2018-04-06 14:16] LABS: BASO % 0.2 % (0.0-2.0); EOS # 1.1 K/uL (0.0-0.7); EOS % 7.4 % (0.0-4.0); HEMOGLOBIN 13.9 g/dL (12.0-18.0); LYMPH % 13.5 % (20.0-40.0); MEAN CELL VOLUME 86.5 fl (80.0-94.0); MEAN CORPUSCULAR HEMOGLOBIN 28.7 pg (27.0-31.0); MEAN CORPUSCULAR HGB CONC 33.2 g/dL (33.0-37.0); MEAN PLATELET VOLUME 8.5 fl (7.2-11.7); MONO % 6.5 % (0.0-10.0); NEUT # 10.9 K/uL (1.8-7.0); NEUT % 72.4 % (50.0-75.0); RBC 4.85 Mil/uL (4.40-5.90); RED CELL DISTRIBUTION WIDTH 14.4 % (11.5-14.5); WHITE BLOOD COUNT 15.1 K/uL (4.8-10.8)
[2018-04-06 14:31] LABS: ALB/GLOB RATIO 0.9 (1.0-2.1); ALBUMIN 3.5 g/dL (3.5-5.0); ALT/SGPT 27 U/L (21-72); AST/SGOT 34 U/L (17-59); BLOOD UREA NITROGEN 16 mg/dl (9-20); CALCIUM 9.2 mg/dL (8.4-10.2); GFR AFRICAN-AMERICAN > 60; GFR NON-AFRICAN AMERICAN > 60
[2018-04-06 16:49] LABS: GAMMA GLUTAMYL TRANSPEPTIDASE 165 U/L (8-78)
--- NOTE | 2018-04-06 17:40 | CP.PCM.PCO ---
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
[2018-04-07] MEDS: Dextrose 5%/0.45% NS 1,000 ML IV SCH ×2 (07:35→15:30)
[2018-04-07] MEDS: BUDESONIDE 3 MG PO SCH ×2 (08:33→12:55)
[2018-04-07] MEDS: Fluticasone-Salmeterol 500-50mcg Diskus INH SCH ×3 (08:34→21:51)
[2018-04-07] MEDS: Lidocaine 5% Patch TD SCH (08:34)
--- NOTE | 2018-04-07 08:48 | CP.PCM.PN ---
Subjective - Date & Time of Evaluation Date of Evaluation: 04/07/18 Time of Evaluation: 08:00 - Subjective Subjective: Patient seen and examined this morning at bedside, NAD. Patient is c/o diffuse abdominal pain, improved. Denies any dizziness, blurred vision, chest pain, SOB , urinary symptoms, vomiting, fever, diarrhea or weakness. Patient was NPO past midnight for possible intervention by Pain management, Dr. Pearce. Objective - Vital Signs/Intake and Output Vital Signs (last 24 hours): Temp Pulse Resp BP Pulse Ox 97.7 F 83 20 102/68 94 L 04/07/18 08:39 04/07/18 08:39 04/07/18 08:39 04/07/18 08:39 04/07/18 08:39 - Medications Medications: Current Medications Albuterol (Ventolin Hfa 90 Mcg/Actuation (8 G)) 2 puff IH Q6 PRN PRN Reason: Shortness of Breath Amitriptyline HCl (Elavil) 10 mg PO HS [facility] Last Admin: 04/06/18 21:58 Dose: 10 mg Enoxaparin Sodium (Lovenox) 40 mg SC DAILY [facility] PRN Reason: Protocol Last Admin: 04/06/18 10:00 Dose: Not Given Famotidine (Pepcid) 20 mg PO [facility] Last Admin: 04/06/18 22:01 Dose: 20 mg Home Med (Patient's Own Medication) 3 unit PO DAILY [facility] Last Admin: 04/07/18 08:33 Dose: Not Given Dextrose/Sodium Chloride (Dextrose 5%/0.45% Ns 1000 Ml) 1,000 mls @ 125 mls/hr IV .Q8H [facility] Stop: 04/07/18 23:39 Last Admin: 04/07/18 07:35 Dose: 125 mls/hr Lidocaine (Lidoderm) 1 ea TD DAILY [facility] Last Admin: 04/07/18 08:34 Dose: Not Given Montelukast Sodium (Singulair) 10 mg PO [facility] Last Admin: 04/06/18 21:58 Dose: Not Given Morphine Sulfate (Morphine) 4 mg IVP Q6H PRN PRN Reason: Pain, severe (8-10) Last Admin: 04/06/18 22:01 Dose: 4 mg Pantoprazole Sodium (Protonix Inj) 40 mg IVP DAILY [facility] Last Admin: 04/07/18 08:35 Dose: 40 mg Fluticasone/Salmeterol (Advair Diskus 500/50) 1 puff INH Q12 [facility] Last Admin: 04/07/18 08:34 Dose: Not Given Tramadol HCl (Ultram) 50 mg PO Q6 PRN PRN Reason: Pain, moderate (4-7) - Labs Labs: 04/06/18 14:00 04/06/18 14:00 - Constitutional Appears: No Acute Distress - Head Exam Head Exam: NORMAL INSPECTION - Eye Exam Eye Exam: Normal appearance - ENT Exam ENT Exam: Mucous Membranes Moist - Neck Exam Neck Exam: Normal Inspection - Respiratory Exam Respiratory Exam: Clear to Ausculation Bilateral, NORMAL BREATHING PATTERN - Cardiovascular Exam Cardiovascular Exam: REGULAR RHYTHM, +S1, +S2 - GI/Abdominal Exam GI & Abdominal Exam: Soft, Hyperactive Bowel Sounds. absent: Distended, Tenderness, Rebound - Extremities Exam Extremities Exam: Full ROM, Normal Capillary Refill - Back Exam Back Exam: absent: CVA tenderness (L), CVA tenderness (R) - Neurological Exam Neurological Exam: Alert, Awake, CN II-XII Intact, Oriented x3 - Psychiatric Exam Psychiatric exam: Normal Affect - Skin Additional comments: vitiligo skin changes Assessment and Plan - Assessment and Plan (Free Text) Assessment: 42 yo male with PMH of Severe Persistent asthma, gastritis, pancreatitis, and Eosinophilic colitis Admitted for evaluation and treatment of Abdominal pain. Abdominal Pain, possibly due to Colitis - Ruled out sepsis after work ups and evaluations - Ct: Diffuse colitis suggest C.Diff, potential hepatic metastasis. Mild intrahepatic biliary dilation, rapid enlargement of R Lower lobe pulmonary masses suggest metastasis. - GI Consulted, Dr. Heart, Recommendations appreciated - Consult IR, Dr. Chow for liver biopsy (Possibly today) - Consult Pain management, Dr. Pearce (Possible hypogastric plexus block on Thursday , NPO past midnight on thursday, hold lovenox, order Coag) - Rheumatology, Dr. Brown appreciated, will follow recommendations and work ups - Continue PPI, Pepcid and budesonide. Amitryptiline 10mg qhs was started for abdominal cramps and insomnia - F/U Stool studies culture, ova/parasites - NPO - Pain management: Continue with Morphine for now as per Dr. Pearce Leukocytosis - Improved chronic persistent Asthma - Improved - Continue home Fluticasone/salmeterol BID - Albuterol inh PRN DVT prophylaxis - lovenox 40 mg SC (Held today for possible IR intervention) - SCDs
--- NOTE | 2018-04-07 09:31 | CP.PCM.PN ---
Subjective - Date & Time of Evaluation Date of Evaluation: 04/07/18 Time of Evaluation: 07:45 - Subjective Subjective: I had a brief discussion with the patient this morning. He admitted to pain below the umbilicus, and complains of pain in the lower back as well. There are numerous work-up's pending, such as rheumatology panel and liver biopsy. Patient could be a candidate for hypogastric plexus block, pending results of the above tests. R/B/A were discussed with the patient, and he is agreeable to the plan. Objective - Vital Signs/Intake and Output Vital Signs (last 24 hours): Temp Pulse Resp BP Pulse Ox 97.7 F 83 20 102/68 94 L 04/07/18 08:39 04/07/18 08:39 04/07/18 08:39 04/07/18 08:39 04/07/18 08:39 - Medications Medications: Current Medications Albuterol (Ventolin Hfa 90 Mcg/Actuation (8 G)) 2 puff IH Q6 PRN PRN Reason: Shortness of Breath Amitriptyline HCl (Elavil) 10 mg PO HS [facility] Last Admin: 04/06/18 21:58 Dose: 10 mg Enoxaparin Sodium (Lovenox) 40 mg SC DAILY [facility] PRN Reason: Protocol Last Admin: 04/06/18 10:00 Dose: Not Given Famotidine (Pepcid) 20 mg PO HS [facility] Last Admin: 04/06/18 22:01 Dose: 20 mg Home Med (Patient's Own Medication) 3 unit PO DAILY [facility] Last Admin: 04/07/18 08:33 Dose: Not Given Dextrose/Sodium Chloride (Dextrose 5%/0.45% Ns 1000 Ml) 1,000 mls @ 125 mls/hr IV .Q8H [facility] Stop: 04/07/18 23:39 Last Admin: 04/07/18 07:35 Dose: 125 mls/hr Lidocaine (Lidoderm) 1 ea TD DAILY [facility] Last Admin: 04/07/18 08:34 Dose: Not Given Montelukast Sodium (Singulair) 10 mg PO HS [facility] Last Admin: 04/06/18 21:58 Dose: Not Given Morphine Sulfate (Morphine) 4 mg IVP Q6H PRN PRN Reason: Pain, severe (8-10) Last Admin: 04/06/18 22:01 Dose: 4 mg Pantoprazole Sodium (Protonix Inj) 40 mg IVP DAILY [facility] Last Admin: 04/07/18 08:35 Dose: 40 mg Fluticasone/Salmeterol (Advair Diskus 500/50) 1 puff INH Q12 [facility] Last Admin: 04/07/18 08:34 Dose: Not Given Tramadol HCl (Ultram) 50 mg PO Q6 PRN PRN Reason: Pain, moderate (4-7) - Labs Labs: 04/06/18 14:00 04/06/18 14:00 - GI/Abdominal Exam GI & Abdominal Exam: Soft, Tenderness Assessment and Plan (1) Colitis Status: Acute - Assessment and Plan (Free Text) Assessment: 42 yo man w/ acute on chronic abdominal pain. Work-up pending. Patient is not a candidate for opioid management. Will re-assess for intervention for Thursday. - please set patient up for possible injection on Thursday, NPO + hold Lovenox - f/u coag's - f/u rheum, GI recommendations
--- NOTE | 2018-04-07 09:47 | CP.PCM.PN ---
<Julio Torres - Last Filed: 04/07/18 13:27> Subjective - Date & Time of Evaluation Date of Evaluation: 04/07/18 Time of Evaluation: 09:45 - Subjective Subjective: GI Fellow PGY4, progress note. Afeb/HDS. No acute overnight events. No complaints. Possible liver biopsy today. NPO. 12pt ROS completed and negative except for above. Objective - Vital Signs/Intake and Output Vital Signs (last 24 hours): Temp Pulse Resp BP Pulse Ox 97.7 F 83 20 102/68 94 L 04/07/18 08:39 04/07/18 08:39 04/07/18 08:39 04/07/18 08:39 04/07/18 08:39 - Medications Medications: Current Medications Albuterol (Ventolin Hfa 90 Mcg/Actuation (8 G)) 2 puff IH Q6 PRN PRN Reason: Shortness of Breath Amitriptyline HCl (Elavil) 10 mg PO HS [facility] Last Admin: 04/06/18 21:58 Dose: 10 mg Enoxaparin Sodium (Lovenox) 40 mg SC DAILY [facility] PRN Reason: Protocol Last Admin: 04/06/18 10:00 Dose: Not Given Famotidine (Pepcid) 20 mg PO HS [facility] Last Admin: 04/06/18 22:01 Dose: 20 mg Home Med (Patient's Own Medication) 3 unit PO DAILY [facility] Last Admin: 04/07/18 08:33 Dose: Not Given Dextrose/Sodium Chloride (Dextrose 5%/0.45% Ns 1000 Ml) 1,000 mls @ 125 mls/hr IV .Q8H [facility] Stop: 04/07/18 23:39 Last Admin: 04/07/18 07:35 Dose: 125 mls/hr Lidocaine (Lidoderm) 1 ea TD DAILY [facility] Last Admin: 04/07/18 08:34 Dose: Not Given Montelukast Sodium (Singulair) 10 mg PO HS [facility] Last Admin: 04/06/18 21:58 Dose: Not Given Morphine Sulfate (Morphine) 4 mg IVP Q6H PRN PRN Reason: Pain, severe (8-10) Last Admin: 04/06/18 22:01 Dose: 4 mg Pantoprazole Sodium (Protonix Inj) 40 mg IVP DAILY [facility] Last Admin: 04/07/18 08:35 Dose: 40 mg Fluticasone/Salmeterol (Advair Diskus 500/50) 1 puff INH Q12 [facility] Last Admin: 04/07/18 08:34 Dose: Not Given Tramadol HCl (Ultram) 50 mg PO Q6 PRN PRN Reason: Pain, moderate (4-7) - Labs Labs: 04/06/18 14:00 04/06/18 14:00 - Constitutional Appears: Non-toxic, No Acute Distress, Chronically Ill - Head Exam Head Exam: ATRAUMATIC - Eye Exam Eye Exam: Normal appearance - ENT Exam ENT Exam: Normal Exam - Respiratory Exam Respiratory Exam: Clear to Ausculation Bilateral, NORMAL BREATHING PATTERN. absent: Wheezes - Cardiovascular Exam Cardiovascular Exam: REGULAR RHYTHM, +S1, +S2 - GI/Abdominal Exam GI & Abdominal Exam: Soft, Tenderness, Normal Bowel Sounds - Extremities Exam Extremities Exam: Normal Inspection - Neurological Exam Neurological Exam: Awake, Normal Gait, Oriented x3 - Psychiatric Exam Psychiatric exam: Agitated, Anxious, Normal Affect - Skin Skin Exam: Warm. absent: Normal Color Additional comments: vitiligo Assessment and Plan - Assessment and Plan (Free Text) Assessment: 42M with hx of eosinophilia presenting with acute abdominal pain and found to have pancolitis, liver and lung lesions #Eosinophilic Colitis #Abdominal pain #Peptic Ulcer disease #Liver lesion #Intrahepatic biliary dilation #Lung lesion #Asthma #Vitiligo Plan: -Afeb/HDS -Continue supportive care -CT reviewed and noted enlarging liver/lung mass, diffuse colitis. -Stool studies culture, ova/parasites -Continue PPI therapy -Continue home budesonide -Continue amitryptiline 10mg qhs for abdominal cramps and insomnia -Consult IR for liver biopsy -NPO until IR liver biopsy planned. If not today, patient can resume diet. -Patient has outpt appt for nasal bx to r/o vasculitis -Celiac plexus nerve block scheduled for Thursday. <Naren Heart - Last Filed: 04/07/18 14:41> Objective - Vital Signs/Intake and Output Vital Signs (last 24 hours): Temp Pulse Resp BP Pulse Ox 97.7 F 83 20 102/68 94 L 04/07/18 08:39 04/07/18 08:39 04/07/18 08:39 04/07/18 08:39 04/07/18 08:39 - Medications Medications: Current Medications Albuterol (Ventolin Hfa 90 Mcg/Actuation (8 G)) 2 puff IH Q6 PRN PRN Reason: Shortness of Breath Amitriptyline HCl (Elavil) 10 mg PO HS [facility] Last Admin: 04/06/18 21:58 Dose: 10 mg Enoxaparin Sodium (Lovenox) 40 mg SC DAILY [facility] PRN Reason: Protocol Last Admin: 04/06/18 10:00 Dose: Not Given Famotidine (Pepcid) 20 mg PO [facility] Last Admin: 04/06/18 22:01 Dose: 20 mg Home Med (Patient's Own Medication) 3 unit PO DAILY [facility] Last Admin: 04/07/18 12:55 Dose: 3 unit Dextrose/Sodium Chloride (Dextrose 5%/0.45% Ns 1000 Ml) 1,000 mls @ 125 mls/hr IV .Q8H [facility] Stop: 04/07/18 23:39 Last Admin: 04/07/18 07:35 Dose: 125 mls/hr Lidocaine (Lidoderm) 1 ea TD DAILY [facility] Last Admin: 04/07/18 08:34 Dose: Not Given Montelukast Sodium (Singulair) 10 mg PO HS [facility] Last Admin: 04/06/18 21:58 Dose: Not Given Morphine Sulfate (Morphine) 2 mg IVP Q6 PRN PRN Reason: Pain, severe (8-10) Pantoprazole Sodium (Protonix Inj) 40 mg IVP DAILY [facility] Last Admin: 04/07/18 08:35 Dose: 40 mg Fluticasone/Salmeterol (Advair Diskus 500/50) 1 puff INH Q12 [facility] Last Admin: 04/07/18 12:54 Dose: 1 puff Tramadol HCl (Ultram) 50 mg PO Q6 PRN PRN Reason: Pain, moderate (4-7) - Labs Labs: 04/06/18 14:00 04/06/18 14:00 PT 13.3 Seconds (9.8-13.1) H 04/07/18 11:28 INR 1.2 04/07/18 11:28 APTT 31.5 Seconds (25.6-37.1) 04/07/18 11:28 Attending/Attestation - Attestation I have personally seen and examined this patient.: Yes I have fully participated in the care of the patient.: Yes I have reviewed all pertinent clinical information, including history, physical exam and plan: Yes Notes (Text): 04/07/18 14:38 Patient seen with GI fellow at bedside. This is a 42 yr old male patient with hx of eosinophilia, colitis on budenoside 9 mg daily, presenting with acute abdominal pain and found to have pancolitis, liver and lung lesions. Had increased IgG on serological testing with intra hepatic dilattaion. 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 Will benefit with EUS and FNA for liver/ bile lesions or iR biopsy. Rheumatology work up in progress for vasculitis and rule out IgG4. Will start amitryptiline SNRI at small dose for abdominal cramps and sleep. Regular diet as tolerated. Will need outpatient follow up with PMD, GI and rheumatology 04/07/18 14:40
--- NOTE | 2018-04-07 10:44 | PCM.IRP ---
Chief Complaint: IR requested to perform liver biopsy. CT and US of liver reviewd. There are no clearly seen lesions that I can biopsy. Recommend MRI and planned outpt biopsy of there are any lesions. Objective - Vital Signs/Intake and Output Vital Signs (last 24 hours): Vital Signs - 24 hr 04/06/18 04/06/18 04/06/18 15:12 17:15 18:12 Temperature 98.9 F 97.6 F 98.9 F Pulse Rate 97 H 94 H 97 H Respiratory 17 20 17 Rate Blood Pressure 127/78 125/90 127/78 O2 Sat by Pulse 98 97 Oximetry 04/07/18 04/07/18 00:21 08:39 Temperature 98.3 F 97.7 F Pulse Rate 100 H 83 Respiratory 18 20 Rate Blood Pressure 105/73 102/68 O2 Sat by Pulse 95 94 L Oximetry - Medications Medications: Current Medications Albuterol (Ventolin Hfa 90 Mcg/Actuation (8 G)) 2 puff IH Q6 PRN PRN Reason: Shortness of Breath Amitriptyline HCl (Elavil) 10 mg PO HS [facility] Last Admin: 04/06/18 21:58 Dose: 10 mg Enoxaparin Sodium (Lovenox) 40 mg SC DAILY [facility] PRN Reason: Protocol Last Admin: 04/06/18 10:00 Dose: Not Given Famotidine (Pepcid) 20 mg PO HS [facility] Last Admin: 04/06/18 22:01 Dose: 20 mg Home Med (Patient's Own Medication) 3 unit PO DAILY [facility] Last Admin: 04/07/18 08:33 Dose: Not Given Dextrose/Sodium Chloride (Dextrose 5%/0.45% Ns 1000 Ml) 1,000 mls @ 125 mls/hr IV .Q8H [facility] Stop: 04/07/18 23:39 Last Admin: 04/07/18 07:35 Dose: 125 mls/hr Lidocaine (Lidoderm) 1 ea TD DAILY [facility] Last Admin: 04/07/18 08:34 Dose: Not Given Montelukast Sodium (Singulair) 10 mg PO HS [facility] Last Admin: 04/06/18 21:58 Dose: Not Given Morphine Sulfate (Morphine) 2 mg IVP Q6 PRN PRN Reason: Pain, severe (8-10) Pantoprazole Sodium (Protonix Inj) 40 mg IVP DAILY [facility] Last Admin: 04/07/18 08:35 Dose: 40 mg Fluticasone/Salmeterol (Advair Diskus 500/50) 1 puff INH Q12 [facility] Last Admin: 04/07/18 08:34 Dose: Not Given Tramadol HCl (Ultram) 50 mg PO Q6 PRN PRN Reason: Pain, moderate (4-7) - Labs Labs (last 24 hours): Laboratory Results - last 24 hr 04/05/18 04/06/18 04/06/18 00:41 14:00 14:00 WBC 15.1 H RBC 4.85 Hgb 13.9 Hct 42.0 MCV 86.5 MCH 28.7 MCHC 33.2 RDW 14.4 Plt Count 244 MPV 8.5 Neut % (Auto) 72.4 Lymph % (Auto) 13.5 L [place] % (Auto) 6.5 Eos % (Auto) 7.4 H Baso % (Auto) 0.2 Neut # (Auto) 10.9 H Lymph # (Auto) 2.0 Rose[place] # (Auto) 1.0 H Eos # (Auto) 1.1 H Baso # (Auto) 0.0 ESR Sodium Potassium Chloride Carbon Dioxide Anion Gap BUN Creatinine Est GFR ( Amer) Est GFR (Non-Af Amer) Random Glucose Calcium Total Bilirubin GGT 165 H AST ALT Alkaline Phosphatase Total Protein Albumin Globulin Albumin/Globulin Ratio Procalcitonin 0.08 L 04/06/18 04/07/18 14:00 06:10 WBC RBC Hgb Hct MCV MCH MCHC RDW Plt Count MPV Neut % (Auto) Lymph % (Auto) Rosebud % (Auto) Eos % (Auto) Baso % (Auto) Neut # (Auto) Lymph # (Auto) [place]bud # (Auto) Eos # (Auto) Baso # (Auto) ESR 51 H Sodium 140 Potassium 4.9 Chloride 101 Carbon Dioxide 28 Anion Gap 16 BUN 16 Creatinine 0.9 Est GFR ( Amer) > 60 Est GFR (Non-Af Amer) > 60 Random Glucose 104 Calcium 9.2 Total Bilirubin 0.5 GGT AST 34 ALT 27 Alkaline Phosphatase 182 H Total Protein 7.4 Albumin 3.5 Globulin 3.9 Albumin/Globulin Ratio 0.9 L Procalcitonin
[2018-04-07 11:38] LABS: INR 1.2; PROTHROMBIN TIME 13.3 Seconds (9.8-13.1)
[2018-04-07 11:40] LABS: PARTIAL THROMBOPLASTIN TIME 31.5 Seconds (25.6-37.1)
[2018-04-07 12:17] LABS: ANTI SREPTOLYSIN O NEGATIVE (NEGATIVE)
--- NOTE | 2018-04-07 15:11 | PQF ---
PROVIDER RESPONSE TEXT: Condition does not exist, this has been updated in todays progress note. Thank you. REVIEWER QUERY TEXT: Clinical Validity Additional clinical indicators are required to support your documented diagnosis of Evaluate for Sep sis. Please respond and also state in your next progress note whether: -- Condition exists and also please provide clinical indicators to support the diagnosis -- Condition does not exist and also please provide amended documentation in the medical record to cl gerardo -- Unable to provide additional clarity regarding the diagnosis -- Other, please specify The patient's Clinical Indicators include: Patient with a history of Eosinophilic Colitis by colonoscopy biopsy presents with abdominal pain. ER: Colitis , Sepsis PN 04/06 Sepsis resolving TEMP 97.7, 98, 98.2, 98 HR 94, 89, 96, 99, 96,90 BP 114/82, 103/74, 115/76, 136/96, 109/59 WBC 27.1 with 66% Eosinophils IVAB given in the ER. Query created by: Sol Borges on 04/07/2018 1:09 PM Electronically signed by: Alina Wolfe 04/07/2018 3:08 PM
[2018-04-07] MEDS ORDERED: Gadodiamide 287 MG/ML VIAL (15ML) IV ONE (17:21)
[2018-04-07] MEDS ORDERED: Sodium Chloride 0.9% 50 ML IV ONE (17:21)
[2018-04-07 18:33] LABS: URINE BILIRUBIN NEGATIVE (NEGATIVE); URINE BLOOD NEGATIVE (NEGATIVE); URINE CLARITY CLEAR (Clear); URINE COLOR YELLOW (YELLOW); URINE GLUCOSE (UA) NEG (Normal); URINE LEUKOCYTE ESTERASE NEG Leu/uL (Negative); URINE PROTEIN NEGATIVE (NEGATIVE); URINE UROBILINOGEN 0.2-1.0 mg/dL (0.2-1.0)
[2018-04-08] MEDS: Fluticasone-Salmeterol 500-50mcg Diskus INH SCH ×2 (08:54→20:30)
[2018-04-08] MEDS: Lidocaine 5% Patch TD SCH ×2 (09:24→16:56)
[2018-04-08] MEDS: BUDESONIDE 3 MG PO SCH (09:27)
--- NOTE | 2018-04-08 09:34 | CP.PCM.PN ---
Subjective - Date & Time of Evaluation Date of Evaluation: 04/08/18 Time of Evaluation: 09:00 - Subjective Subjective: Patient seen and examined this morning. C/o abdominal pain, asking for medications. Patient refused to get MRI yesterday, agrees to MRI today if we give something to calm him down. Denies any vomiting, diarrhea, fever or weakness. Tolerating PO intake, AAOx3. Objective - Vital Signs/Intake and Output Vital Signs (last 24 hours): Temp Pulse Resp BP Pulse Ox 97.8 F 85 20 121/80 95 04/08/18 08:26 04/08/18 08:26 04/08/18 08:26 04/08/18 08:26 04/08/18 08:26 Intake and Output: 04/08/18 04/08/18 06:59 18:59 Intake Total 1700 Output Total 3000 Balance -1300 - Medications Medications: Current Medications Albuterol (Ventolin Hfa 90 Mcg/Actuation (8 G)) 2 puff IH Q6 PRN PRN Reason: Shortness of Breath Amitriptyline HCl (Elavil) 10 mg PO HS [facility] Last Admin: 04/07/18 21:50 Dose: 10 mg Enoxaparin Sodium (Lovenox) 40 mg SC DAILY [facility] PRN Reason: Protocol Last Admin: 04/06/18 10:00 Dose: Not Given Famotidine (Pepcid) 20 mg PO HS [facility] Last Admin: 04/07/18 21:50 Dose: 20 mg Home Med (Patient's Own Medication) 3 unit PO DAILY [facility] Last Admin: 04/08/18 09:27 Dose: 3 unit Lidocaine (Lidoderm) 1 ea TD DAILY [facility] Last Admin: 04/08/18 09:24 Dose: Not Given Montelukast Sodium (Singulair) 10 mg PO HS [facility] Last Admin: 04/07/18 21:53 Dose: Not Given Morphine Sulfate (Morphine) 2 mg IVP Q6 PRN PRN Reason: Pain, severe (8-10) Last Admin: 04/08/18 09:21 Dose: 2 mg Pantoprazole Sodium (Protonix Inj) 40 mg IVP DAILY [facility] Last Admin: 04/08/18 09:23 Dose: 40 mg Fluticasone/Salmeterol (Advair Diskus 500/50) 1 puff INH Q12 [facility] Last Admin: 04/08/18 08:54 Dose: 1 puff Tramadol HCl (Ultram) 50 mg PO Q6 PRN PRN Reason: Pain, moderate (4-7) - Labs Labs: 04/06/18 14:00 04/06/18 14:00 PT 13.3 Seconds (9.8-13.1) H 04/07/18 11:28 INR 1.2 04/07/18 11:28 APTT 31.5 Seconds (25.6-37.1) 04/07/18 11:28 - Constitutional Appears: No Acute Distress - Head Exam Head Exam: ATRAUMATIC, NORMAL INSPECTION, NORMOCEPHALIC - Eye Exam Eye Exam: EOMI, Normal appearance Pupil Exam: NORMAL ACCOMODATION, PERRL - ENT Exam ENT Exam: Mucous Membranes Moist - Neck Exam Neck Exam: Normal Inspection - Respiratory Exam Respiratory Exam: Clear to Ausculation Bilateral, NORMAL BREATHING PATTERN. absent: Chest Wall Tenderness, Decreased Breath Sounds, Wheezes, Respiratory Distress - Cardiovascular Exam Cardiovascular Exam: REGULAR RHYTHM, +S1, +S2 - GI/Abdominal Exam GI & Abdominal Exam: Soft, Normal Bowel Sounds. absent: Tenderness - Extremities Exam Extremities Exam: Full ROM, Normal Capillary Refill, Normal Inspection - Back Exam Back Exam: absent: CVA tenderness (L), CVA tenderness (R) - Neurological Exam Neurological Exam: Alert, Awake, CN II-XII Intact, Normal Gait, Oriented x3 - Psychiatric Exam Psychiatric exam: Normal Affect - Skin Additional comments: Vitiligo skin changes Assessment and Plan - Assessment and Plan (Free Text) Assessment: A/P: 42 yo male with PMH of Severe Persistent asthma, gastritis, pancreatitis, and Eosinophilic colitis Admitted for evaluation and treatment of Abdominal pain. Abdominal Pain, possibly due to Colitis - GI Consulted, Dr. Heart, Recommendations appreciated - Consult IR, Dr. Chow for lung biopsy (Possibly today) - Consult Pain management, Dr. Pearce (Possible hypogastric plexus block on Thursday , NPO past midnight on thursday, hold lovenox, order Coag) - Rheumatology, Dr. Brown appreciated, will follow recommendations and work ups - Continue PPI, Pepcid and budesonide. Amitryptiline 10mg qhs was started for abdominal cramps and insomnia - F/U Stool studies culture, ova/parasites - NPO for Lung biopsy, NPO past midnight for possible block tomorrow - Pain management: Continue with Morphine for now as per Dr. Pearce Leukocytosis - Improved chronic persistent Asthma - Improved - Continue home Fluticasone/salmeterol BID - Albuterol inh PRN Drug Seeking behavior - Follow up Urine Tox DVT prophylaxis - lovenox 40 mg SC (Hold tomorrow for possible block) - SCDs
[2018-04-08] MEDS ORDERED: Lidocaine Hydrochloride 5 ML INJ ONE (11:14)
[2018-04-08] MEDS ORDERED: Midazolam 2 MG/2 ML VIAL ONE (11:41)
--- NOTE | 2018-04-08 12:14 | PCM.SURG1 ---
Surgeon's Initial Post Op Note - Surgeon's Notes Surgeon: Davion Chow MD Oem Sales Manager: NONE Type of Anesthesia: IV Sedation Pre-Operative Diagnosis: Lung lesions Operative Findings: CT showed multiple areas of patch opacity right lower lob. Largest 3 cm mass selected for biopsy. Post-Operative Diagnosis: Lung masses Operation Performed: CT guided biosy of right lung mass. Two 20-g core specimen removed. Specimen/Specimens Removed: 20 g core x 2 Estimated Blood Loss: EBL {In ML}: 0 Blood Products Given: N/A Drains Used: No Drains Post-Op Condition: Fair Date of Surgery/Procedure: 04/08/18 Time of Surgery/Procedure: 12:10
--- NOTE | 2018-04-08 12:51 | CT ---
PROCEDURE: Date of procedure: 04/08/2018 Procedure: 1. CT-guided lung mass biopsy, CPT [address] Guidance for biopsy, [address] Radiation: 622.09mGy-cm Medications: The patient was sedated by anesthesiologist along with physiologic monitoring. HISTORY: Right lower lobe mass TECHNIQUE: Following informed consent, the Pt's chest was marked. The Pt was placed prone on the CT table and procedure time out was performed. A noncontrast CT scan was performed. Noncontrast CT scan confirmed the presence of multiple patchy airspace opacities within the right lower lobe. A 3 centimeter consolidations present in right lower lobe. A skin localizer was placed on the patient's right back and a repeat CT scan was performed. The skin was marked, prepped, and draped in the usual sterile fashion. After the skin was anesthetized with lidocaine and the patient sedated by the anesthesiologist, a 20 gauge core needle was advanced percutaneously under direct CT guidance into the mass. Upon confirmation of needle position, two 20-gauge core specimens were obtained and sent for routine pathology. The needle was removed and a xeroform dressing was applied. A post biopsy CT scan showed less than 5 percent pneumothorax. IMPRESSION: CT guided core biopsy right lung mass.
[2018-04-08] MEDS ORDERED: Sodium Chloride 0.9% 1,000 ML IV ONE (13:15)
--- NOTE | 2018-04-08 14:16 | RAD ---
Date of service: 04/08/2018 PROCEDURE: CHEST RADIOGRAPH, 1 VIEW HISTORY: Status post right lung mass biopsy COMPARISON: Frontal chest radiograph 04/01/2018. FINDINGS: LUNGS: Nodular density is reiterated at the inferior right lung zone. No interval infiltrate bilaterally. PLEURA: No pneumothorax or pleural fluid seen. CARDIOVASCULAR: Normal. OSSEOUS STRUCTURES: No significant abnormalities. VISUALIZED UPPER ABDOMEN: Normal. OTHER FINDINGS: None. IMPRESSION: Stable chest radiography with no interval pneumothorax appreciated. No acute infiltrate bilaterally.
[2018-04-08 15:01] LABS: RNP <1.0 AI (<1.0)
[2018-04-08 16:21] LABS: BARBITURATES, UR NEGATIVE (NEGATIVE); BENZODIAZEPINES, UR POSITIVE (NEGATIVE); OPIATES, UR POSITIVE (NEGATIVE); PHENCYCLIDINE, UR NEGATIVE (NEGATIVE)
[2018-04-08] MEDS ORDERED: Gadodiamide 287 MG/ML VIAL (15ML) IV ONE (16:55)
--- NOTE | 2018-04-08 19:00 | MRI ---
Date of service: 04/08/2018 PROCEDURE: MRI Abdomen with and without contrast HISTORY: Enlarging liver lesion COMPARISON: Comparison is made with the previous CT of the abdomen dated 04/05/2018. TECHNIQUE: Multisequence, multiplanar MR images of the abdomen with and without gadolinium contrast enhancement. FINDINGS: LIVER: Heterogeneous signal in the lower without evidence of discrete mass. There is hyperintense small cysts in the right liver lobe adjacent to the interlobular fissure measures 11 millimeter. There is also adjacent cyst at the left liver lobe measures 7.5 millimeter. There is 4.5 millimeter cyst at the midportion of the right liver lobe. GALLBLADDER: The gallbladder is contracted. SPLEEN: Unremarkable. PANCREAS: Unremarkable. ADRENALS: Unremarkable. KIDNEYS: Unremarkable. AORTA: No aneurysm. ASCITES: None. PERITONEUM: Unremarkable. LYMPH NODES: Unremarkable. OTHER FINDINGS: There is focal opacity or mass lesion at the right lung. IMPRESSION: No definite evidence of solid mass lesion in the liver. The assessment is suboptimal without IV contrast administration. Small hyperintense T2 cysts seen in the liver.
[2018-04-08] MEDS: Sodium Chloride 0.9% 1,000 ML IV SCH (20:00)
[2018-04-09] MEDS: Sodium Chloride 0.9% 1,000 ML IV SCH ×3 (03:00→12:20)
[2018-04-09 06:55] LABS: BASO # 0.1 K/uL (0.0-0.2); BASO % 0.5 % (0.0-2.0); EOS # 10.1 K/uL (0.0-0.7); EOS % 52.7 % (0.0-4.0); HEMOGLOBIN 12.8 g/dL (12.0-18.0); INR 1.3; LYMPH # 2.2 K/uL (1.0-4.3); LYMPH % 11.3 % (20.0-40.0); MEAN CELL VOLUME 87.9 fl (80.0-94.0); MEAN CORPUSCULAR HEMOGLOBIN 28.4 pg (27.0-31.0); MEAN CORPUSCULAR HGB CONC 32.3 g/dL (33.0-37.0); MEAN PLATELET VOLUME 8.3 fl (7.2-11.7); MONO % 5.3 % (0.0-10.0); NEUT # 5.8 K/uL (1.8-7.0); NEUT % 30.2 % (50.0-75.0); PLATELET COUNT 236 K/uL (130-400); PROTHROMBIN TIME 13.9 Seconds (9.8-13.1); RBC 4.52 Mil/uL (4.40-5.90); RED CELL DISTRIBUTION WIDTH 14.6 % (11.5-14.5); WHITE BLOOD COUNT 19.2 K/uL (4.8-10.8)
[2018-04-09 06:57] LABS: PARTIAL THROMBOPLASTIN TIME 35.3 Seconds (25.6-37.1)
[2018-04-09 07:00] LABS: ALB/GLOB RATIO 0.9 (1.0-2.1); ALBUMIN 3.2 g/dL (3.5-5.0); ALT/SGPT 36 U/L (21-72); AST/SGOT 38 U/L (17-59); BLOOD UREA NITROGEN 11 mg/dl (9-20); CALCIUM 8.6 mg/dL (8.4-10.2); GFR AFRICAN-AMERICAN > 60; GFR NON-AFRICAN AMERICAN > 60
[2018-04-09] MEDS: Fluticasone-Salmeterol 500-50mcg Diskus INH SCH ×2 (08:06→21:33)
[2018-04-09] MEDS: Lidocaine 5% Patch TD SCH (08:11)
[2018-04-09] MEDS ORDERED: Propofol 10 mg/ml Inj (20 ML) ONE (08:29)
[2018-04-09] MEDS ORDERED: Midazolam 2 MG/2 ML VIAL ONE (08:30)
[2018-04-09] MEDS ORDERED: Lidocaine 2% MPF (5 ml) Inj ONE (08:31)
[2018-04-09] MEDS ORDERED: methylPREDNISolone Depo 80 mg/ml Inj ONE (08:31)
[2018-04-09] MEDS ORDERED: Bupivacaine HCl 0.25% PF (30 ml) Inj ONE (08:32)
[2018-04-09] MEDS ORDERED: Iohexol 300 10 ML ONE (08:32)
[2018-04-09] MEDS ORDERED: Lactated Ringer's 500 ML IV ONE (08:35)
[2018-04-09] MEDS ORDERED: methylPREDNISolone Depo 80 mg/ml Inj IM ONE (08:35)
[2018-04-09] MEDS ORDERED: Bupivacaine HCl 0.25% PF (30 ml) Inj IJ ONE (08:35)
[2018-04-09] MEDS ORDERED: Iohexol 300 10 ML IJ ONE (08:35)
[2018-04-09] MEDS ORDERED: Lidocaine 2% MPF (5 ml) Inj INJ ONE (08:35)
[2018-04-09] MEDS: Lactated Ringer's 500 ML IV SCH ×2 (09:15→19:30)
--- NOTE | 2018-04-09 09:29 | CP.PCM.PN ---
Subjective - Date & Time of Evaluation Date of Evaluation: 04/09/18 Time of Evaluation: 09:00 - Subjective Subjective: Patient is s/p superior hypogastric plexus block. Procedure was done successfully on the left side uneventfully, but on the right side multiple needle placements above and below the right L5 transverse process towards the anterior aspect of the L5 vertebral body were placed in a blood vessel. Contrast injected through the needle was immediately washed away. After multiple attempts, decision was made to abort. Patient is stable in the PACU. Case was discussed with house staff. Objective - Vital Signs/Intake and Output Vital Signs (last 24 hours): Temp Pulse Resp BP Pulse Ox 98.5 F 91 H 19 110/75 95 04/09/18 07:51 04/09/18 07:51 04/09/18 07:51 04/09/18 07:51 04/09/18 07:51 Intake and Output: 04/09/18 04/09/18 06:59 18:59 Intake Total 1200 Balance 1200 - Medications Medications: Current Medications Albuterol (Ventolin Hfa 90 Mcg/Actuation (8 G)) 2 puff IH Q6 PRN PRN Reason: Shortness of Breath Amitriptyline HCl (Elavil) 10 mg PO HS [facility] Last Admin: 04/08/18 22:22 Dose: 10 mg Enoxaparin Sodium (Lovenox) 40 mg SC DAILY [facility] PRN Reason: Protocol Last Admin: 04/06/18 10:00 Dose: Not Given Famotidine (Pepcid) 20 mg PO HS [facility] Last Admin: 04/08/18 22:22 Dose: 20 mg Home Med (Patient's Own Medication) 3 unit PO DAILY [facility] Last Admin: 04/08/18 09:27 Dose: 3 unit Sodium Chloride (Sodium Chloride 0.9%) 1,000 mls @ 125 mls/hr IV .Q8H [facility] Stop: 04/09/18 19:29 Last Admin: 04/09/18 08:06 Dose: 125 mls/hr Lidocaine (Lidoderm) 1 ea TD DAILY [facility] Last Admin: 04/09/18 08:11 Dose: Not Given Montelukast Sodium (Singulair) 10 mg PO HS [facility] Last Admin: 04/08/18 22:22 Dose: 10 mg Morphine Sulfate (Morphine) 2 mg IVP Q6 PRN PRN Reason: Pain, severe (8-10) Last Admin: 04/08/18 22:40 Dose: 2 mg Pantoprazole Sodium (Protonix Inj) 40 mg IVP DAILY [facility] Last Admin: 04/09/18 08:09 Dose: 40 mg Fluticasone/Salmeterol (Advair Diskus 500/50) 1 puff INH Q12 [facility] Last Admin: 04/09/18 08:06 Dose: 1 puff Tramadol HCl (Ultram) 100 mg PO Q6 PRN PRN Reason: Pain, moderate (4-7) - Labs Labs: 04/09/18 06:37 04/09/18 06:37 PT 13.9 Seconds (9.8-13.1) H 04/09/18 06:37 INR 1.3 04/09/18 06:37 APTT 35.3 Seconds (25.6-37.1) 04/09/18 06:37 Assessment and Plan (1) Colitis Assessment & Plan: 42 yo man w/ colitis, chronic pain is s/p attempted superior hypogastric plexus block. Procedure was successful on the left but on the right side there were repeated vascular punctures with the needle and decision was made to abort due to inability to place the needle safely without intravascular placement. - keep for observation, neuro checks - fluid, cbc tonight - can discharge tomorrow if patient is stable Status: Acute
[2018-04-09] MEDS ORDERED: Lactated Ringer's 1,000 ML IV SCH (09:45)
--- NOTE | 2018-04-09 09:49 | CP.PCM.PN ---
Subjective - Date & Time of Evaluation Date of Evaluation: 04/09/18 Time of Evaluation: 07:00 - Subjective Subjective: 42 y/o male seen and examined this morning at bedside. NAD, AAOx3, aware of possible Nerve block today by Dr. Pearce. Patient is ambulating, tolerating PO intake (NPO today for nerve block), denies any chest pain, SOB, dizziness, palpitations, weakness, or F/N/V/D. Objective - Vital Signs/Intake and Output Vital Signs (last 24 hours): Temp Pulse Resp BP Pulse Ox 97 F L 94 H 16 100/72 97 04/09/18 09:15 04/09/18 09:15 04/09/18 09:15 04/09/18 09:15 04/09/18 09:15 Intake and Output: 04/09/18 04/09/18 06:59 18:59 Intake Total 1200 300 Balance 1200 300 - Medications Medications: Current Medications Albuterol (Ventolin Hfa 90 Mcg/Actuation (8 G)) 2 puff IH Q6 PRN PRN Reason: Shortness of Breath Amitriptyline HCl (Elavil) 10 mg PO HS [facility] Last Admin: 04/08/18 22:22 Dose: 10 mg Enoxaparin Sodium (Lovenox) 40 mg SC DAILY DARIEL PRN Reason: Protocol Last Admin: 04/06/18 10:00 Dose: Not Given Famotidine (Pepcid) 20 mg PO HS [facility] Last Admin: 04/08/18 22:22 Dose: 20 mg Home Med (Patient's Own Medication) 3 unit PO DAILY [facility] Last Admin: 04/08/18 09:27 Dose: 3 unit Sodium Chloride (Sodium Chloride 0.9%) 1,000 mls @ 125 mls/hr IV .Q8H [facility] Stop: 04/09/18 19:29 Last Admin: 04/09/18 08:06 Dose: 125 mls/hr Lactated Ringer's (Lactated Ringer's 500ml) 500 mls @ 100 mls/hr IV .Q5H [facility] Last Admin: 04/09/18 09:15 Dose: 0 mls Lactated Ringer's (Lactated Ringer's) 1,000 mls @ 0 mls/hr IV .Q0M DARIEL PRN Reason: As Directed Lidocaine (Lidoderm) 1 ea TD DAILY [facility] Last Admin: 04/09/18 08:11 Dose: Not Given Montelukast Sodium (Singulair) 10 mg PO HS [facility] Last Admin: 04/08/18 22:22 Dose: 10 mg Morphine Sulfate (Morphine) 2 mg IVP Q6 PRN PRN Reason: Pain, severe (8-10) Last Admin: 04/08/18 22:40 Dose: 2 mg Pantoprazole Sodium (Protonix Inj) 40 mg IVP DAILY [facility] Last Admin: 04/09/18 08:09 Dose: 40 mg Fluticasone/Salmeterol (Advair Diskus 500/50) 1 puff INH Q12 [facility] Last Admin: 04/09/18 08:06 Dose: 1 puff Tramadol HCl (Ultram) 100 mg PO Q6 PRN PRN Reason: Pain, moderate (4-7) - Labs Labs: 04/09/18 06:37 04/09/18 06:37 PT 13.9 Seconds (9.8-13.1) H 04/09/18 06:37 INR 1.3 04/09/18 06:37 APTT 35.3 Seconds (25.6-37.1) 04/09/18 06:37 - Constitutional Appears: No Acute Distress - Head Exam Head Exam: NORMAL INSPECTION - Eye Exam Eye Exam: Normal appearance, PERRL Pupil Exam: NORMAL ACCOMODATION - ENT Exam ENT Exam: Mucous Membranes Moist - Neck Exam Neck Exam: Full ROM, Normal Inspection - Respiratory Exam Respiratory Exam: Clear to Ausculation Bilateral, NORMAL BREATHING PATTERN. absent: Wheezes - Cardiovascular Exam Cardiovascular Exam: REGULAR RHYTHM, +S1, +S2 - GI/Abdominal Exam GI & Abdominal Exam: Soft, Normal Bowel Sounds. absent: Tenderness - Extremities Exam Extremities Exam: Full ROM, Normal Capillary Refill, Normal Inspection. absent : Pedal Edema, Tenderness - Back Exam Back Exam: NORMAL INSPECTION. absent: CVA tenderness (L), CVA tenderness (R) - Neurological Exam Neurological Exam: Alert, Awake, CN II-XII Intact, Normal Gait, Oriented x3 Neuro motor strength exam: Left Upper Extremity: 5, Right Upper Extremity: 5, Left Lower Extremity: 5, Right Lower Extremity: 5 - Psychiatric Exam Psychiatric exam: Normal Affect, Normal Mood - Skin Skin Exam: Dry, Intact, Normal Color, Warm Assessment and Plan - Assessment and Plan (Free Text) Assessment: A/P: 42 yo male with PMH of Severe Persistent asthma, gastritis, pancreatitis, and Eosinophilic colitis Admitted for evaluation and treatment of intractable Abdominal pain. Abdominal Pain, possibly due to Colitis - GI Consulted, Dr. Heart, Recommendations appreciated - Consult IR, Dr. Chow, for lung biopsy (f/u lung biopsy 04/08/18) - Consult Pain management, Dr. Pearce (s/p superior hypogastric plexus block on left, right side block was aborted after multiple attempts ) - Rheumatology, Dr. Brown appreciated, will follow recommendations and work ups , (Spoke with Dr. Brown, Patient will follow up with him as outpatient) - Continue PPI, Pepcid and budesonide. Amitryptiline 10mg qhs was started for abdominal cramps and insomnia - Pain management: Continue with Morphine for now as per Dr. Pearce - F/U Stool studies culture, ova/parasites - F/u Lung biopsy (04/08/18) Leukocytosis - Improving, - Possibly due to chronic conditions, Colitis chronic persistent Asthma - Improved - Continue home Fluticasone/salmeterol BID - Albuterol inh PRN Drug Seeking behavior - U tox positive for Opiates and Marijuana (04/08/18) DVT prophylaxis - lovenox 40 mg SC (will restart tomorrow) - SCDs
[2018-04-09] MEDS: BUDESONIDE 3 MG PO SCH (10:46)
[2018-04-09 11:58] LABS: ANISOCYTOSIS SLIGHT; EOSINOPHIL 42 % (0-7); LYMPHOCYTE 12 % (20-50); MONOCYTE 4 % (0-10); NEUTROPHIL 42 % (42-75); PLATELET ESTIMATE NORMAL (NORMAL); TOTAL CELLS COUNTED 100
[2018-04-09 11:59] LABS: LARGE PLATELETS PRESENT; OVALOCYTES MODERATE; SPHEROCYTES SLIGHT
--- NOTE | 2018-04-09 16:22 | RAD ---
Date of service: 04/09/2018 PROCEDURE: Intraoperative Fluoroscopy. HISTORY: PAIN MANAGEMENT FINDINGS: Fluoroscopic assistance was provided for pain management. Please refer to the operative report from SHELLIE Tamayo. Total fluoroscopic time (continuous mode) utilized during the procedure 109.4 (seconds). Total exam DLP: 31.70 (mGy)
[2018-04-09 18:03] LABS: BASO # 0.1 K/uL (0.0-0.2); BASO % 0.4 % (0.0-2.0); EOS % 41.8 % (0.0-4.0); HEMOGLOBIN 13.1 g/dL (12.0-18.0); LYMPH # 1.4 K/uL (1.0-4.3); MEAN CELL VOLUME 87.3 fl (80.0-94.0); MEAN CORPUSCULAR HEMOGLOBIN 28.7 pg (27.0-31.0); MEAN CORPUSCULAR HGB CONC 32.9 g/dL (33.0-37.0); MEAN PLATELET VOLUME 8.6 fl (7.2-11.7); MONO # 0.6 K/uL (0.0-0.8); MONO % 4.4 % (0.0-10.0); NEUT # 6.2 K/uL (1.8-7.0); NEUT % 43.4 % (50.0-75.0); RBC 4.57 Mil/uL (4.40-5.90); RED CELL DISTRIBUTION WIDTH 14.5 % (11.5-14.5); WHITE BLOOD COUNT 14.4 K/uL (4.8-10.8)
--- NOTE | 2018-04-09 21:46 | OP ---
Copied To: Pardeep Pearce MD Attending MD: Pardeep Pearce MD PROCEDURE DATE: 04/09/2018 PREOPERATIVE DIAGNOSIS: Abdominal pain. POSTOPERATIVE DIAGNOSIS: Abdominal pain. PROCEDURE: Superior hypogastric plexus block on the left. ANESTHESIOLOGIST: Dr. Estrada. SURGEON: Pardeep Pearce MD TYPE OF ANESTHESIA: Monitored anesthesia care. COMPLICATIONS: None. SPECIMENS: None. DESCRIPTION OF PROCEDURE: After discussion of the procedure with the patient including its risks, benefits, alternatives, outcome data, possibility of no effect or increased pain, the patient consented to the procedure. He denies any recent infection, bleeding tendencies, or being on anticoagulants. Decision was then made to proceed to the OR. The patient was placed on a fluoroscopy table in a prone position with two pillows underneath his abdomen. The back was prepped and draped in the usual sterile fashion, and sterile technique was adhered to during the entire procedure. The L5 vertebral level was first identified in the anteroposterior view. Steep caudad angulation at approximately 15 degrees was used to square up the superior endplate of the L5 vertebral body. The target was at the superolateral border of the vertebral body above the pedicle on both sides. The procedure was first performed on the left side by turning the fluoroscopy towards the left at approximately 15 degrees oblique. The target was at a safety triangle consisting of the transverse process on the left of the L5 pedicle of the inferior border and the superior articular process of the left L5 pedicle of the medial border and the anterior border of the vertebral body as the lateral border and the superior border of the vertebral body as the superior border. The skin overlying this area was infiltrated with 1% lidocaine using 25-gauge needle. Subsequently, a 22-gauge 5-inch spinal needle was then incrementally advanced under fluoroscopic guidance until tip of the needle made bony contact with the vertebral body. After the needle made contact with the vertebral body, it was then walked slightly laterally and incrementally anteriorly under lateral fluoroscopic guidance until the tip of the needle lay about 5 mm anterior to the anterior surface of the vertebral body. The same exact technique was used for the placement of the needle on the right side. After satisfactory positioning of both needles, the stylets were removed. There was blood seen in the hub of the right-sided needle. Contrast was injected into both needles and on the left side there was appropriate spread of the contrast on the left. However, on the right side, the contrast washed out immediately indicating that the needle was in a blood vessel. The position of the needle was then adjusted multiple times at different depths; however, each time, the needle was still in the blood vessel. At this point, the needle on the right side was removed. Approximately 15 mL of 0.25% Marcaine and Depo-Medrol mixture was then injected into the left-sided needle and that was then removed. Another attempt was made at the right side by going underneath the right transverse process using the same technique. However, once again, the needle was found to be within the blood vessel on this attempt as well. Decision was then made to abort the procedure on the right side. The patient's back was then cleaned, and dry bandages were applied. The patient was then transferred to the recovery area in good condition without any signs of PLEAT PATTERNMAKER toxicity or any neurological deficits. He will receive fluid therapy. He will have a CBC tonight to access the potential for continued bleeding. The plan was discussed with the house staff. En-Cabrera Pearce MD
[2018-04-10 00:22] VITALS: O2SAT 96
[2018-04-10] MEDS: Lactated Ringer's 500 ML IV SCH ×2 (00:30→05:00)
[2018-04-10 07:52] VITALS: BP 110/74; PULSE 95; RESP 19; TEMP 98.3
[2018-04-10] MEDS: BUDESONIDE 3 MG PO SCH (08:36)
[2018-04-10] MEDS: Fluticasone-Salmeterol 500-50mcg Diskus INH SCH (08:37)
[2018-04-10] MEDS ORDERED: Enoxaparin 40 mg Syringe SC SCH (09:00)
[2018-04-10] MEDS: Lidocaine 5% Patch TD SCH (09:54)
--- NOTE | 2018-04-10 11:00 | CP.PCM.DIS ---
Provider - Provider Date of Admission: 04/05/18 11:26 Attending physician: Vandana Vidales MD Primary care physician: Vandana Vidales MD Consults: GI, Dr. Heart IR, Dr. Chow Rheumatology, Dr. Brown Pain management, Dr. Pearce Time Spent in preparation of Discharge (in minutes): 40 Diagnosis - Discharge Diagnosis (1) Intractable abdominal pain Status: Chronic Comment: s/p superior hypogastric plexus block (2) Eosinophilic colitis Status: Chronic (3) Severe persistent asthma Status: Chronic Hospital Course - Lab Results Lab Results: Most Recent Lab Values WBC 14.4 K/uL (4.8-10.8) H 04/09/18 17:55 RBC 4.57 Mil/uL (4.40-5.90) 04/09/18 17:55 Hgb 13.1 g/dL (12.0-18.0) 04/09/18 17:55 Hct 39.9 % (35.0-51.0) 04/09/18 17:55 MCV 87.3 fl (80.0-94.0) 04/09/18 17:55 MCH 28.7 pg (27.0-31.0) 04/09/18 17:55 MCHC 32.9 g/dL (33.0-37.0) L 04/09/18 17:55 RDW 14.5 % (11.5-14.5) 04/09/18 17:55 Plt Count 250 K/uL (130-400) 04/09/18 17:55 MPV 8.6 fl (7.2-11.7) 04/09/18 17:55 Neut % (Auto) 43.4 % (50.0-75.0) L 04/09/18 17:55 Lymph % (Auto) 10.0 % (20.0-40.0) L 04/09/18 17:55 [place] % (Auto) 4.4 % (0.0-10.0) 04/09/18 17:55 Eos % (Auto) 41.8 % (0.0-4.0) H 04/09/18 17:55 Baso % (Auto) 0.4 % (0.0-2.0) 04/09/18 17:55 Neut # (Auto) 6.2 K/uL (1.8-7.0) 04/09/18 17:55 Lymph # (Auto) 1.4 K/uL (1.0-4.3) 04/09/18 17:55 [place] # (Auto) 0.6 K/uL (0.0-0.8) 04/09/18 17:55 Eos # (Auto) 6.0 K/uL (0.0-0.7) H 04/09/18 17:55 Baso # (Auto) 0.1 K/uL (0.0-0.2) 04/09/18 17:55 Total Counted Cancelled 04/09/18 17:55 Neutrophils % (Manual) 42 % (42-75) 04/09/18 06:37 Band Neutrophils % Cancelled 04/09/18 17:55 Lymphocytes % (Manual) 12 % (20-50) L 04/09/18 06:37 Reactive Lymphs % 3 % (0-0) H 04/05/18 00:41 Monocytes % (Manual) 4 % (0-10) 04/09/18 06:37 Eosinophils % (Manual) 42 % (0-7) H 04/09/18 06:37 Basophils % (Manual) Cancelled 04/09/18 17:55 Metamyelocytes % Cancelled 04/09/18 17:55 Myelocytes % Cancelled 04/09/18 17:55 Promyelocytes % Cancelled 04/09/18 17:55 Blast Cells % Cancelled 04/09/18 17:55 Plasma Cell % (Manual) Cancelled 04/09/18 17:55 Nucleated RBC % Cancelled 04/09/18 17:55 Hypersegmented Polys Cancelled 04/09/18 17:55 Smudge Cells Cancelled 04/09/18 17:55 Toxic Granulation Cancelled 04/09/18 17:55 Dohle Bodies Cancelled 04/09/18 17:55 Yelena Rods Cancelled 04/09/18 17:55 Platelet Estimate Normal (NORMAL) 04/09/18 06:37 Plt Clumps, EDTA Cancelled 04/09/18 17:55 Large Platelets Present 04/09/18 06:37 Giant Platelets Cancelled 04/09/18 17:55 RBC Morphology Normal (NORMAL) 04/05/18 00:41 Polychromasia Cancelled 04/09/18 17:55 Hypochromasia (manual) Cancelled 04/09/18 17:55 Poikilocytosis (manual Cancelled 04/09/18 17:55 Basophilic Stippling Cancelled 04/09/18 17:55 Anisocytosis (manual) Slight 04/09/18 06:37 Microcytosis (manual) Cancelled 04/09/18 17:55 Macrocytosis (manual) Slight 04/09/18 06:37 Spherocytes Slight 04/09/18 06:37 Sickle Cells Cancelled 04/09/18 17:55 Target Cells Cancelled 04/09/18 17:55 Tear Drop Cells Cancelled 04/09/18 17:55 Ovalocytes Moderate 04/09/18 06:37 Stomatocytes Cancelled 04/09/18 17:55 Helmet Cells Cancelled 04/09/18 17:55 [place] Bodies Cancelled 04/09/18 17:55 Breanna Cells Cancelled 04/09/18 17:55 Acanthocytes (Spur) Cancelled 04/09/18 17:55 Rouleaux Cancelled 04/09/18 17:55 Schistocytes Cancelled 04/09/18 17:55 ESR 51 mm/hr (0-15) H 04/07/18 06:10 PT 13.9 Seconds (9.8-13.1) H 04/09/18 06:37 INR 1.3 04/09/18 06:37 APTT 35.3 Seconds (25.6-37.1) 04/09/18 06:37 pO2 66 mm/Hg (30-55) H 04/05/18 11:30 VBG pH 7.40 (7.32-7.43) 04/05/18 11:30 VBG pCO2 41 mmHg (40-60) 04/05/18 11:30 VBG HCO3 25.2 mmol/L 04/05/18 11:30 VBG Total CO2 26.7 mmol/L (22-28) 04/05/18 11:30 VBG O2 Sat (Calc) 96.2 % (40-65) H 04/05/18 11:30 VBG Base Excess 0.5 mmol/L (0.0-2.0) 04/05/18 11:30 VBG Potassium 3.8 mmol/L (3.6-5.2) 04/05/18 11:30 Sodium 133.0 mmol/L (132-148) 04/05/18 11:30 Chloride 101.0 mmol/L (98-107) 04/05/18 11:30 Glucose 75 mg/dL (75-110) 04/05/18 11:30 Lactate 0.9 mmol/L (0.7-2.1) 04/05/18 11:30 FiO2 21.0 % 04/05/18 11:30 Sodium 139 mmol/l (132-148) 04/09/18 06:37 Potassium 4.9 MMOL/L (3.6-5.0) 04/09/18 06:37 Chloride 102 mmol/L (98-107) 04/09/18 06:37 Carbon Dioxide 30 mmol/L (22-30) 04/09/18 06:37 Anion Gap 12 (10-20) 04/09/18 06:37 BUN 11 mg/dl (9-20) 04/09/18 06:37 Creatinine 1.1 mg/dl (0.8-1.5) 04/09/18 06:37 Est GFR ( Amer) > 60 04/09/18 06:37 Est GFR (Non-Af Amer) > 60 04/09/18 06:37 Random Glucose 82 mg/dL (75-110) 04/09/18 06:37 Calcium 8.6 mg/dL (8.4-10.2) 04/09/18 06:37 Total Bilirubin 0.6 mg/dl (0.2-1.3) 04/09/18 06:37 GGT 165 U/L (8-78) H 04/05/18 00:41 AST 38 U/L (17-59) 04/09/18 06:37 ALT 36 U/L (21-72) 04/09/18 06:37 Alkaline Phosphatase 174 U/L (38-126) H 04/09/18 06:37 C-React Prot High Sens > 15.00 mg/L (1.00-3.00) H 04/07/18 06:10 Total Protein 7.0 G/DL (6.3-8.2) 04/09/18 06:37 Albumin 3.2 g/dL (3.5-5.0) L 04/09/18 06:37 Globulin 3.7 gm/dL (2.2-3.9) 04/09/18 06:37 Albumin/Globulin Ratio 0.9 (1.0-2.1) L 04/09/18 06:37 Lipase 26 U/L (23-300) 04/05/18 00:41 Procalcitonin 0.08 NG/ML (0.19-0.49) L 04/06/18 14:00 Venous Blood Potassium 3.8 mmol/L (3.6-5.2) 04/05/18 11:30 Urine Color Yellow (YELLOW) 04/07/18 18:26 Urine Clarity Clear (Clear) 04/07/18 18:26 Urine pH 7.0 (5.0-8.0) 04/07/18 18: Ur Specific Commodore 1.009 (1.003-1.030) 04/07/18 18:26 Urine Protein Negative mg/dL (NEGATIVE) 04/07/18 18:26 Urine Glucose (UA) Neg mg/dL (Normal) 04/07/18 18:26 Urine Ketones Negative mg/dL (NEGATIVE) 04/07/18 18:26 Urine Blood Negative (NEGATIVE) 04/07/18 18:26 Urine Nitrate Negative (NEGATIVE) 04/07/18 18:26 Urine Bilirubin Negative (NEGATIVE) 04/07/18 18:26 Urine Urobilinogen 0.2-1.0 mg/dL (0.2-1.0) 04/07/18 18:26 Ur Leukocyte Esterase Neg Lore[place]/uL (Negative) 04/07/18 18:26 Urine RBC (Auto) 1 /hpf (0-3) 04/07/18 18:26 Urine Microscopic WBC 1 /hpf (0-5) 04/07/18 18:26 Urine Opiates Screen Positive (NEGATIVE) H 04/08/18 14:00 Urine Methadone Screen Negative (NEGATIVE) 04/08/18 14:00 Ur Barbiturates Screen Negative (NEGATIVE) 04/08/18 14:00 Ur Phencyclidine Scrn Negative (NEGATIVE) 04/08/18 14:00 Ur Amphetamines Screen Negative (NEGATIVE) 04/08/18 14:00 U Benzodiazepines Scrn Positive (NEGATIVE) 04/08/18 14:00 U Oth Cocaine Metabols Negative (NEGATIVE) 04/08/18 14:00 U Cannabinoids Screen Positive (NEGATIVE) H 04/08/18 14:00 Cycl Citrul Peptide IgG <16 Units 04/07/18 06:10 Rheumatoid Arth Interp Positive (NEGATIVE) H 04/07/18 06:10 SHARONDA Screen Negative (Negative) 04/07/18 06:10 SHARONDA Titer TEST NOT PERFORMED 04/07/18 06:10 SHARONDA Titer 2 TEST NOT PERFORMED 04/07/18 06:10 SHARONDA Pattern TEST NOT PERFORMED 04/07/18 06:10 SHARONDA Pattern 2 TEST NOT PERFORMED 04/07/18 06:10 Proteinase 3 (PR3) <1.0 AI (<1.0) 04/07/18 06:10 Myeloperoxidase Ab <1.0 AI (<1.0) 04/07/18 06:10 SS-A Antibody <1.0 AI (<1.0) 04/07/18 06:10 SS-B Ab Interp Negative (Negative) 04/07/18 06:10 SS-B Antibody <1.0 AI (<1.0) 04/07/18 06:10 SS-B Ab Interp Negative (Negative) 04/07/18 06:10 CLIPPER MACHINE OPERATOR Antibody <1.0 AI (<1.0) 04/07/18 06:10 CLIPPER MACHINE OPERATOR Antibody Interp Negative (Negative) 04/07/18 06:10 Double Strand DNA Ab 1 IU/mL 04/07/18 06:10 Anti-Staphylolysin O Negative (NEGATIVE) 04/07/18 06:10 - Hospital Course Hospital Course: 42 yo male with PMH of Severe Persistent asthma, gastritis, pancreatitis, and Eosinophilic colitis Admitted for evaluation and treatment of intractable Abdominal pain. After admission, CT abdo: Diffuse colitis suggest C.Diff and found liver and RLL lung lesions. GI, consulted, started PPI, Pepcid, Budesonide and Amitryptiline, GI recommended IR, Rheumatology and pain management. IR recommended, MRI of abdomen which showed small T2 liver cysts. Lung lesion biopsy was performed by IR. French Translator ordered immunologic work up and recommended out patient follow up. Patient is s/p superior hypogastric plexus block by Dr. Pearce. Discharge day CBC, CMP stable. Patient is ambulating, tolerating PO, urinating freely and improved/resolved abdominal pain. Patient was discharged home with instructions to c/w home medications (Oeprazole 40 daily, Albuterol, Zofran PRN, Budesonide 9mg PO daily, Pepcid 20mg daily, Advir , Ultram 50mg Q6H PRN and patient was Started on Amitriptiline 10mg qhs), Follow up PMD/GI and French Translator for further evaluations and treatments. --- Follow up Lung biopsy results as outpatient --- Follow up Immunologic work up as outpatient Discharge Exam - Head Exam Head Exam: NORMAL INSPECTION - Eye Exam Eye Exam: Normal appearance, PERRL Pupil Exam: NORMAL ACCOMODATION - ENT Exam ENT Exam: Mucous Membranes Moist - Neck Exam Neck exam: Full Rom, Normal Inspection - Respiratory Exam Respiratory Exam: Clear to PA & Lateral, NORMAL BREATHING PATTERN. absent: Accessory Muscle Use, Chest Wall Tenderness, Rales, Wheezes, Respiratory Distress - Cardiovascular Exam Cardiovascular Exam: REGULAR RHYTHM, +S1, +S2. absent: JVD, Systolic Murmur - GI/Abdominal Exam GI & Abdominal Exam: Normal Bowel Sounds, Soft. absent: Distended, Guarding, Hernia, Mass, Organomegaly, Pulsatile Mass, Rebound, Rigid, Tenderness - Extremities Exam Extremities exam: full ROM, normal capillary refill, normal inspection, pedal pulses present - Back Exam Back exam: absent: CVA tenderness (L), CVA tenderness (R), muscle spasm, paraspinal tenderness, tenderness, vertebral tenderness - Neurological Exam Neurological exam: Alert, CN II-XII Intact, Normal Gait, Oriented x3, Reflexes Normal - Psychiatric Exam Psychiatric exam: Normal Affect, Normal Mood - Skin Additional comments: Vitiligo skin changes Discharge Plan - Discharge Medications Prescriptions: Amitriptyline [Elavil] 10 mg PO HS #30 tab - Follow Up Plan Condition: FAIR Disposition: HOME/ ROUTINE Instructions: Gastritis, Diarrhea in Adolescents and Adults, Chronic Pain (DC) , Avoiding Asthma Triggers Additional Instructions: Follow up with Dr. Brown with in a week, Call in office# [phone] Follow up with GI, Dr. Heart after discharge, with in a week Follow up 04/16/18 at 3pm at [facility] with Dr. Vidales Referrals: Vandana Vidales MD [Primary Care Provider] - Bari Brown MD [Staff Provider] - Naren Heart MD [Medical Doctor] -
== END 2018-04-10 12:26 | disposition home or self-care (01) | DRG 468 ==
LOC: H.ER 23:04 → H.ERHOLD 04-05 11:26 → H.MEDSURG1 04-06 18:20
PROVIDERS: ADMIT Family Medicine Geriatric Medicine; ATTEND Family Medicine Geriatric Medicine
PROC: 0BDF4ZX Extraction of Right Lower Lung Lobe, Percutaneous Endoscopic Approach, Diagnostic (ICD-10-PCS; principal; 2018-04-08 11:30)
PROC: 3E0T3BZ Introduction of Anesthetic Agent into Peripheral Nerves and Plexi, Percutaneous Approach (ICD-10-PCS; 2018-04-09)
DX: K52.82 Eosinophilic colitis (principal); J44.9 Chronic obstructive pulmonary disease, unspecified; J45.50 Severe persistent asthma, uncomplicated; L80 Vitiligo; Z91.018 Allergy to other foods; K29.70 Gastritis, unspecified, without bleeding; I25.2 Old myocardial infarction; G89.29 Other chronic pain; G47.00 Insomnia, unspecified; Z76.5 Malingerer [conscious simulation]; K76.89 Other specified diseases of liver; R91.1 Solitary pulmonary nodule

== ENCOUNTER 2018-04-13 18:43 | Inpatient (IN) | payer MEDICAID ==
[2018-04-13] MEDS ORDERED: Albuterol-Ipratrop 3 mg / 0.5 (3 ml) UD INH STA ×2 (20:16)
[2018-04-13 20:33] LABS: BASO # 0.1 K/uL (0.0-0.2); BASO % 0.6 % (0.0-2.0); EOS # 0.7 K/uL (0.0-0.7); EOS % 6.9 % (0.0-4.0); HEMOGLOBIN 14.1 g/dL (12.0-18.0); LYMPH # 2.1 K/uL (1.0-4.3); MEAN CORPUSCULAR HEMOGLOBIN 29.1 pg (27.0-31.0); MEAN PLATELET VOLUME 8.3 fl (7.2-11.7); MONO # 1.6 K/uL (0.0-0.8); MONO % 15.2 % (0.0-10.0); NEUT % 57.3 % (50.0-75.0); RBC 4.84 Mil/uL (4.40-5.90); RED CELL DISTRIBUTION WIDTH 15.3 % (11.5-14.5); WHITE BLOOD COUNT 10.5 K/uL (4.8-10.8)
[2018-04-13 20:40] LABS: VENOUS BLOOD GAS BASE EXCESS 3.7 mmol/L (0.0-2.0); VENOUS BLOOD GAS PCO2 54 mmHg (40-60); VENOUS BLOOD GAS PO2 28 mm/Hg (30-55); VENOUS BLOOD PH 7.36 (7.32-7.43)
[2018-04-13] MEDS ORDERED: Albuterol-Ipratrop 3 mg / 0.5 (3 ml) UD ONE ×2 (20:54→21:35)
--- NOTE | 2018-04-13 21:03 | ED PDOC ---
HPI: SOB/CHF/COPD Time Seen by Provider: 04/13/18 19:56 Chief Complaint (Nursing): Shortness Of Breath Chief Complaint (Provider): Shortness Of Breath History Per: Patient History/Exam Limitations: no limitations Onset/Duration Of Symptoms: Days (x4) Current Symptoms Are (Timing): Better Additional Complaint(s): 42 year old male with a hx of COPD and eosinophilic colitis presents to the ED for shortness of breath. Patient states that four days ago, he was an inpatient for a lung biopsy, and yesterday he developed shortness of breath. He describes it as having to force himself to take a deep breath, so last night he took 30 mg prednisone, but woke up still short of breath. Today, he reports going to the clinic where he was given breathing treatments, and advised to go to the ED , despite starting to feel better. While he still notes some wheezing and a dry cough, he denies chest pain or fever. PMD: none provided Past Medical History Reviewed: Historical Data, Nursing Documentation, Vital Signs Vital Signs: Last Vital Signs Temp 97.8 F 04/14/18 02:37 Pulse 98 H 04/14/18 02:37 Resp 23 04/14/18 02:37 BP 113/72 04/14/18 02:37 Pulse Ox 98 04/14/18 02:37 - Medical History PMH: Asthma, CHF, COPD, Diverticulitis, Gastritis, Pancreatitis, Pneumonia Denies: HIV, Chronic Kidney Disease Other PMH: eosinophilic colitis - Surgical History Other surgeries: lung biopsy - Family History Family History: States: Unknown Family Hx - Home Medications Home Medications: Ambulatory Orders Medication Instructions Recorded Fluticasone/Salmeterol 500/50 1 puff INH Q12 03/11/18 [Advair Diskus 500/50] Omeprazole 40 mg PO DAILY 03/11/18 Albuterol Sulfate [Ventolin Hfa] 2 puff IH Q6 PRN 04/05/18 Budesonide [Entocort EC] 9 mg PO DAILY 04/05/18 Famotidine [Pepcid] 20 mg PO HS 04/05/18 - Allergies Allergies/Adverse Reactions: Allergies Allergy/AdvReac Type Severity Reaction Status Date / Time wheat Allergy PAIN Verified 04/07/18 10:57 Review of Systems ROS Statement: Except As Marked, All Systems Reviewed And Found Negative Constitutional: Negative for: Fever Cardiovascular: Negative for: Chest Pain Respiratory: Positive for: Cough (dry), Shortness of Breath, Wheezing Physical Exam - Reviewed Nursing Documentation Reviewed: Yes Vital Signs Reviewed: Yes - Physical Exam Appears: Positive for: Well, No Acute Distress (speaking full sentences) Head Exam: Positive for: ATRAUMATIC, NORMOCEPHALIC Skin: Positive for: Normal Color, Warm, Dry Eye Exam: Positive for: Normal appearance, EOMI, PERRL ENT: Positive for: Normal ENT Inspection Neck: Positive for: Normal, Painless ROM, Supple Cardiovascular/Chest: Positive for: Regular Rate, Rhythm. Negative for: Murmur Respiratory: Positive for: Decreased Breath Sounds (R>L), Wheezing (bilateral), Other (prolonged end expiratory phase). Negative for: Respiratory Distress Gastrointestinal/Abdominal: Positive for: Normal Exam, Soft. Negative for: Tenderness Back: Positive for: Normal Inspection Extremity: Positive for: Normal ROM. Negative for: Pedal Edema, Calf Tenderness Neurologic/Psych: Positive for: Alert, Oriented (x3). Negative for: Motor/ Sensory Deficits - Laboratory Results Result Diagrams: 04/13/18 20:21 04/13/18 21:21 - ECG O2 Sat by Pulse Oximetry: 98 (RA) Pulse Ox Interpretation: Normal Medical Decision Making Medical Decision Making: A/P 42 year old male with hx of COPD and eosinophilic colitis presenting with shortness of breath --likely suffering from COPD exacerbation v. pneumo v. pna v. bronchitis Time: 2015 Initial Plan: --VBG --BMP --CBC with differential --Duoneb 3ml INH x2 --Prednisone 125 mg IVP --Peak flow pre/post 10PM --Patient has pneumo on CXR, patient placed on 100% NRB, surgery paged --Patient was seen by surgical nurse Kim Shin, chest tube placed --Admitted to [facility] Scribe Attestation: Documented by Shannon Gibson, acting as a scribe for Henok Corona MD. Provider Scribe Attestation: All medical record entries made by the Scribe were at my direction and personally dictated by me. I have reviewed the chart and agree that the record accurately reflects my personal performance of the history, physical exam, medical decision making, and the department course for this patient. I have also personally directed, reviewed, and agree with the discharge instructions and disposition. Disposition - Clinical Impression Clinical Impression: Pneumothorax, COPD exacerbation - Patient ED Disposition Is Patient to be Admitted: Yes - Disposition Disposition Time: 22:00 Condition: FAIR
[2018-04-13 21:57] LABS: BLOOD UREA NITROGEN 27 mg/dl (9-20); GFR AFRICAN-AMERICAN > 60; GFR NON-AFRICAN AMERICAN > 60
[2018-04-13] MEDS ORDERED: Lidocaine 1% Inj (20ml) IJ ONE (22:43)
--- NOTE | 2018-04-13 22:50 | CP.PCM.HP ---
History of Present Illness - History of Present Illness History of Present Illness: 42 yo male with PMH of Severe Persistent asthma, COPD, gastritis, pancreatitis, and Eosinophilic colitis was admitted for difficulty with breathing which was not relieved with Advair and albuterol. Patient states his asthma has been worsening for the past 3 days. He has been using his albuteral inhaler 4-5 times a day along with Advair twice a day. Last night patient states he was not able to sleep because he was having left sided chest pain and difficulty breathing. At that time he had prednisone 30 mg at his house which he took and did not provide any relief. - He has also been recovering from a cold and has been been having a productive cough with clear sputum over the last 3 days. - Today he was seen and evaluated at [facility] and was given a treatment and had minimal improvement, and was noticed to have abdominal retractions. Patient was advised to go to the ER for further evaluation and treatment. - Patient denies any fever, chills, nausea, vomiting, diarrhea. - On previous admission patient was worked up for intractable abdominal pain secondary to his eosinophilic colitis. Hypogastirc plexus block was preformed by pain management which provided significant relief to the patient. - On 04/08/18 CT showed multiple areas of patch opacity right lower lobe. Largest 3 cm mass which was selected for lung biopsy. Patient tolerated procedure well at that time and had minor discomfort. 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 Cardic cath november 2017 at [facility], Hypogastric plexus block SH: Drink socially , occasional marajuana, denies smoking FH: Father history of asthma and hypercholesterolemia. Mother history of trigeminal neuralgia. ER course: --VBG: PO2: 28, COD: 32.2, Lactate: 1.8 --BMP: BUN: 27, Creatinine: 27 --CBC with differential: 10.5>14.1/42.6<318 Eos %: 6.9, [place]%:15.2 --PT/INR: PT: 13.9 INR:1.3 --Duoneb 3ml INH x2 --Prednisone 125 mg IVP --Peak flow pre/post - Chest X ray: Shows right sided pneumothorax interpreted by me - Surgery Consulted: Chest tube placed. X ray done afterwords Present on Admission - Present on Admission Any Indicators Present on Admission: No Review of Systems - Review of Systems All systems: reviewed and no additional remarkable complaints except Past Patient History - Infectious Disease Hx of Infectious Diseases: None - Past Medical History & Family History Past Medical History?: Yes - Past Social History Smoking Status: Never Smoked - CARDIAC Hx Congestive Heart Failure: Yes - PULMONARY Hx Asthma: Yes Hx Chronic Obstructive Pulmonary Disease (COPD): Yes Hx Pneumonia: Yes - NEUROLOGICAL Hx Neurological Disorder: No - HEENT Hx HEENT Problems: No - RENAL Hx Chronic Kidney Disease: No - ENDOCRINE/METABOLIC Hx Endocrine Disorders: No - HEMATOLOGICAL/ONCOLOGICAL Hx Human Immunodeficiency Virus (HIV): No - INTEGUMENTARY Hx Dermatological Problems: No - MUSCULOSKELETAL/RHEUMATOLOGICAL Hx Falls: No - GASTROINTESTINAL Hx Diverticulitis: Yes Hx Gastritis: Yes Hx Pancreatitis: Yes - GENITOURINARY/GYNECOLOGICAL Hx Genitourinary Disorders: No - PSYCHIATRIC Hx Substance Use: No - SURGICAL HISTORY Hx Surgeries: Yes Other/Comment: I&D LEG ABSCESS - ANESTHESIA Hx Anesthesia: Yes Hx Anesthesia Reactions: No Hx Malignant Hyperthermia: No Meds Allergies/Adverse Reactions: Allergies Allergy/AdvReac Type Severity Reaction Status Date / Time wheat Allergy PAIN Verified 04/07/18 10:57 Physical Exam - Constitutional Appears: No Acute Distress - Head Exam Head Exam: NORMAL INSPECTION - Eye Exam Eye Exam: Normal appearance Pupil Exam: NORMAL ACCOMODATION - Neck Exam Neck exam: Positive for: Normal Inspection - Respiratory Exam Respiratory Exam: Accessory Muscle Use, Wheezes (scattered throughout), NORMAL BREATHING PATTERN - Cardiovascular Exam Cardiovascular Exam: REGULAR RHYTHM, +S1, +S2 - GI/Abdominal Exam GI & Abdominal Exam: Normal Bowel Sounds, Soft. absent: Tenderness - Neurological Exam Neurological exam: Alert, CN II-XII Intact, Oriented x3 - Skin Skin Exam: Warm Additional comments: Scattered vitiligo scattered over body Results - Vital Signs Recent Vital Signs: Last Vital Signs Temp 97.9 F 04/13/18 18:55 Pulse 89 04/13/18 18:55 Resp 18 04/13/18 18:55 BP 124/89 04/13/18 18:55 Pulse Ox 98 04/13/18 22:24 - Labs Result Diagrams: 04/13/18 20:21 04/13/18 21:21 Labs: Laboratory Results - last 24 hr 04/13/18 04/13/18 04/13/18 20:21 20:31 21:21 WBC 10.5 RBC 4.84 Hgb 14.1 Hct 42.6 MCV 88.0 MCH 29.1 MCHC 33.0 RDW 15.3 H Plt Count 318 MPV 8.3 Neut % (Auto) 57.3 Lymph % (Auto) 20.0 [place] % (Auto) 15.2 H Eos % (Auto) 6.9 H Baso % (Auto) 0.6 Neut # (Auto) 6.0 Lymph # (Auto) 2.1 [place] # (Auto) 1.6 H Eos # (Auto) 0.7 Baso # (Auto) 0.1 pO2 28 L VBG pH 7.36 VBG pCO2 54 VBG HCO3 26.5 VBG Total CO2 32.2 H VBG O2 Sat (Calc) 30.8 L VBG Base Excess 3.7 H VBG Potassium 3.8 Sodium 141.0 145 Chloride 103.0 105 Glucose 96 Lactate 1.8 FiO2 21.0 Potassium 4.4 Carbon Dioxide 28 Anion Gap 16 BUN 27 H Creatinine 1.1 Est GFR ( Amer) > 60 Est GFR (Non-Af Amer) > 60 Random Glucose 98 Calcium 9.0 Venous Blood Potassium 3.8 Assessment & Plan - Assessment and Plan (Free Text) Assessment: A/P: 42 yo male with PMH of Severe Persistent asthma, COPD, gastritis, pancreatitis, and Eosinophilic colitis Admitted for asthma exacerbation and iatrogenic Pneumothorax. 1) Iatrogenic pneumothorax - Right sided PTX s/p lung biopsy on 04/08/18 - Thoracic Surgery Consulted - Daily X ray - F/U with morning chest x ray 2) Asthma Exacerbation: - Duoneb Q4 - Prednisone 50 mg will taper dose - Continue home Fluticasone/salmeterol BID - Albuterol inh PRN 3) Eosinophilic collitis - Continue PPI, Pepcid and budesonide. - Patients pain is well controlled since superior hypogastric plexus block 4)DVT prophylaxis - SCDs for now, will start lovenox in future
[2018-04-13] MEDS ORDERED: Albuterol HFA 90 mcg/actuation (8 g) IH PRN (23:14)
[2018-04-13 23:25] LABS: INR 1.1; PROTHROMBIN TIME 12.4 Seconds (9.8-13.1)
[2018-04-13 23:28] LABS: PARTIAL THROMBOPLASTIN TIME 35.3 Seconds (25.6-37.1)
--- NOTE | 2018-04-14 00:43 | CP.PCM.CON ---
History of Present Illness - History of Present Illness History of Present Illness: Thoracic Surgery Dr. Yo 42 y/o M w/ PMHx of GA, CHF, PNA, Asthma, gastritis, pancreatitis presented to the ED c/o SOB. Pt was seen in clinic this afternoon and was instructed to come to the ED. Pt underwent IR lung Bx on 04/08 for RLL lung lesion seen on CT. Pt reports concurrent cold w/ congestion and sneezing. Pt states that CP and SOB started 2-3 days ago and have progressively been worsening. Thursday night pt reports inability to sleep 2/2 severe R-sided chest discomfort and SOB. Pt reports belly breathing at that time w/ inability to take a full deep breath. Pt presented to clinic as walk-in for evaluation. Pt seen and instructed to come to the ED immediately for further evaluation and workup. Pt denies abd pain , F/C, N/V. Pt currently being treated for recently Dx eosinophilic colitis w/ high-dose steroids. In ED, pt on NRB w/ O2 sats @100%. CXR performed in ED revealed ~40% pneumothorax, for which surgery was consulted. PMHx: see above Meds: reviewed in chart ALL: NKDA PSHx: Right lung Bx, colonoscopy, EGD, I&D R thigh abscess, thermoablation SHx: denies tobacco, drug use. occasional EtOH FHx: noncontributory Review of Systems - Review of Systems All systems: reviewed and no additional remarkable complaints except (see HPI) Past Patient History - Infectious Disease Hx of Infectious Diseases: None - Past Medical History & Family History Past Medical History?: Yes - Past Social History Smoking Status: Never Smoked - CARDIAC Hx Congestive Heart Failure: Yes - PULMONARY Hx Asthma: Yes Hx Chronic Obstructive Pulmonary Disease (COPD): Yes Hx Pneumonia: Yes - NEUROLOGICAL Hx Neurological Disorder: No - HEENT Hx HEENT Problems: No - RENAL Hx Chronic Kidney Disease: No - ENDOCRINE/METABOLIC Hx Endocrine Disorders: No - HEMATOLOGICAL/ONCOLOGICAL Hx Human Immunodeficiency Virus (HIV): No - INTEGUMENTARY Hx Dermatological Problems: No - MUSCULOSKELETAL/RHEUMATOLOGICAL Hx Falls: No - GASTROINTESTINAL Hx Diverticulitis: Yes Hx Gastritis: Yes Hx Pancreatitis: Yes - GENITOURINARY/GYNECOLOGICAL Hx Genitourinary Disorders: No - PSYCHIATRIC Hx Substance Use: No - SURGICAL HISTORY Hx Surgeries: Yes Other/Comment: I&D LEG ABSCESS - ANESTHESIA Hx Anesthesia: Yes Hx Anesthesia Reactions: No Hx Malignant Hyperthermia: No Meds Allergies/Adverse Reactions: Allergies Allergy/AdvReac Type Severity Reaction Status Date / Time wheat Allergy PAIN Verified 04/07/18 10:57 - Medications Medications: Current Medications Acetaminophen (Tylenol 325mg Tab) 650 mg PO Q4 PRN PRN Reason: Pain, Mild (1-3) Albuterol (Ventolin Hfa 90 Mcg/Actuation (8 G)) 2 puff IH Q6 PRN PRN Reason: Shortness of Breath Albuterol/Ipratropium (Duoneb 3 Mg/0.5 Mg (3 Ml) Ud) 3 ml INH RQ4 [facility] Amitriptyline HCl (Elavil) 10 mg PO HS [facility] Famotidine (Pepcid) 20 mg PO HS [facility] Home Med (Budesonide [Entocort Ec]) 9 mg PO DAILY [facility] Lorazepam (Ativan) 1 mg IVP STAT STA Stop: 04/14/18 00:14 Last Admin: 04/14/18 00:22 Dose: 1 mg Montelukast Sodium (Singulair) 10 mg PO HS [facility] Morphine Sulfate (Morphine) 2 mg IVP Q6 PRN PRN Reason: Pain, severe (8-10) Pantoprazole Sodium (Protonix Inj) [address] [facility] Prednisone (Prednisone Tab) 50 mg PO DAILY [facility] Fluticasone/Salmeterol (Advair Diskus 500/50) 1 puff INH Q12 [facility] Tramadol HCl (Ultram) 50 mg PO Q6 PRN PRN Reason: Pain, moderate (4-7) Physical Exam - Constitutional Appears: In Acute Distress, Chronically Ill - Head Exam Head Exam: NORMAL INSPECTION - Eye Exam Eye Exam: Normal appearance - ENT Exam ENT Exam: Mucous Membranes Moist - Respiratory Exam Respiratory Exam: Accessory Muscle Use, Decreased Breath Sounds (R-sided), Wheezes (B/L, expiratory). absent: NORMAL BREATHING PATTERN (tachypneic) - Cardiovascular Exam Cardiovascular Exam: Tachycardia, REGULAR RHYTHM - GI/Abdominal Exam GI & Abdominal Exam: Soft. absent: Distended, Tenderness - Extremities Exam Extremities exam: Positive for: normal inspection - Neurological Exam Neurological exam: Alert, Oriented x3 - Psychiatric Exam Psychiatric exam: Anxious, Normal Affect - Skin Skin Exam: Dry, Intact, Warm Additional comments: vitiligo sunburn to back and shoulders Results - Vital Signs Recent Vital Signs: Last Vital Signs Temp 97.9 F 04/13/18 18:55 Pulse 89 04/13/18 18:55 Resp 18 04/13/18 18:55 BP 124/89 04/13/18 18:55 Pulse Ox 98 04/13/18 22:24 - Labs Result Diagrams: 04/13/18 20:21 04/13/18 21:21 Labs: Laboratory Results - last 24 hr 04/13/18 04/13/18 04/13/18 20:21 20:31 21:21 WBC 10.5 RBC 4.84 Hgb 14.1 Hct 42.6 MCV 88.0 MCH 29.1 MCHC 33.0 RDW 15.3 H Plt Count 318 MPV 8.3 Neut % (Auto) 57.3 Lymph % (Auto) 20.0 [place] % (Auto) 15.2 H Eos % (Auto) 6.9 H Baso % (Auto) 0.6 Neut # (Auto) 6.0 Lymph # (Auto) 2.1 [place] # (Auto) 1.6 H Eos # (Auto) 0.7 Baso # (Auto) 0.1 PT INR APTT pO2 28 L VBG pH 7.36 VBG pCO2 54 VBG HCO3 26.5 VBG Total CO2 32.2 H VBG O2 Sat (Calc) 30.8 L VBG Base Excess 3.7 H VBG Potassium 3.8 Sodium 141.0 145 Chloride 103.0 105 Glucose 96 Lactate 1.8 FiO2 21.0 Potassium 4.4 Carbon Dioxide 28 Anion Gap 16 BUN 27 H Creatinine 1.1 Est GFR ( Amer) > 60 Est GFR (Non-Af Amer) > 60 Random Glucose 98 Calcium 9.0 Venous Blood Potassium 3.8 Blood Type Blood Type Confirm Antibody Screen BBK History Checked 04/13/18 04/13/18 04/13/18 23:00 23:00 23:10 WBC RBC Hgb Hct MCV MCH MCHC RDW Plt Count MPV Neut % (Auto) Lymph % (Auto) [place] % (Auto) Eos % (Auto) Baso % (Auto) Neut # (Auto) Lymph # (Auto) [place] # (Auto) Eos # (Auto) Baso # (Auto) PT 12.4 INR 1.1 APTT 35.3 pO2 VBG pH VBG pCO2 VBG HCO3 VBG Total CO2 VBG O2 Sat (Calc) VBG Base Excess VBG Potassium Sodium Chloride Glucose Lactate FiO2 Potassium Carbon Dioxide Anion Gap BUN Creatinine Est GFR ( Amer) Est GFR (Non-Af Amer) Random Glucose Calcium Venous Blood Potassium Blood Type O POSITIVE Blood Type Confirm O POSITIVE Antibody Screen Negative BBK History Checked No verified bt - Imaging and Cardiology Chest x-ray Status: Image reviewed by me Assessment & Plan - Assessment and Plan (Free Text) Assessment: 42 y/o M w/ iatrogenic PTX s/p lung Bx on 04/08 - R chest thorocostomy - maintain chest tube to wall suction - daily CXR - pain management - cont home meds - encourage OOB to chair/Amb/IS use Pt discussed w/ Dr. Sanaz Shin DO PGY3 Procedures - Chest Tube Chest Tube Location: Mid-Axillary Right Size of Tube (cm): 28 Chest Tube Procedure: Chlorhexidine Tube Sutured to Skin: Yes Sterile Dressing Applied: Yes Anesthesia: Lidocaine 1% Volume Anesthetic (mls): 10 Incision Made With: #11 blade Post Procedure: sutured to skin, sterile dressing applied, air occlusive dressing Colin of [employer] [place]: Yes Tube Drainage: none Amount of Initial Drainage: 0 Post Procedure CXR?: Yes Patient Tolerated Procedure: Yes Progress: Written consent obtained and timeout performed confirming correct pt, side, and positioning. pt given 6mg morphine for pain control during the procedure. area prepped and drapped in usual sterile fashion. 1% lidoacine used to anesthetize 4th intercostal space. skin incision made over 5th rib. small clamp used to dissect to rib periosteum. 1% addition lidocaine injected over 5th rib and 4th ICS. clamp used to access pleural space. gush of air heard upon entry to chest cavity. 28Fr tube advanced into chest cavity and placement confirmed by misting of tube w/ breathing. Tube sutured in place using O-silk in U-stitch fashion. addition single interrupted stitch used to close remaining incision. Chest tube hooked to pleura-vac and wall suction. tidaling noted w/ small air leak. Post- procedure, pt tachypneic and agitated. 1mg Ativan given and Sx resolved. CXR post-procedure confirms CT placement in chest cavity w/ re-expansion of R lung. Pt under continuous O2 and HR monitoring throughout entire procedure. O2 sats maintained 99-100% on NBR. Pt tolerated the procedure well w/ no complications.
[2018-04-14] MEDS ORDERED: Albuterol-Ipratrop 3 mg / 0.5 (3 ml) UD ONE (01:33)
[2018-04-14] MEDS: Albuterol-Ipratrop 3 mg / 0.5 (3 ml) UD INH SCH ×6 (01:43→23:46)
[2018-04-14 03:22] VITALS: BMI 18.2
[2018-04-14] MEDS: Morphine 4 MG/ML VIAL IVP PRN ×3 (05:33→21:51)
[2018-04-14] MEDS: Sodium Chloride 0.9% 1,000 ML IV SCH (06:27)
--- NOTE | 2018-04-14 08:25 | RAD ---
Date of service: 04/14/2018 PROCEDURE: CHEST RADIOGRAPH, 1 VIEW HISTORY: s/p chest tube placement COMPARISON: 04/13/2018 at 2202 hours FINDINGS: LUNGS: The prior moderate sized right pneumothorax is now less with probable trace right apical less than 5 percent pneumothorax persisting (current study compared with lung markings present here on the pre biopsy study of 04/08/2018 at 1300 hours). Interval right chest tube insertion tip projects near right hilum on frontal view. Patchy minimal prominence of interstitial lung marking an bronchovascular markings. No dense consolidation appreciated The prior indeterminate mass at the right lung base is now less conspicuous PLEURA: Less than 5 percent right apical pneumothorax suspect per absent lung markings. A distinct pleural reflection however is difficult to identify. No significant appearing pleural effusion appreciated CARDIOVASCULAR: Normal. OSSEOUS STRUCTURES: No significant abnormalities. VISUALIZED UPPER ABDOMEN: Normal. OTHER FINDINGS: Right lateral chest wall subcutaneous emphysema. IMPRESSION: Interval improvement in the size of the prior moderate sized right pneumothorax. -less than 5 percent trace residual at right apex likely persisting. Interval insertion right chest tube Other findings as above.
--- NOTE | 2018-04-14 08:48 | CP.PCM.PN ---
Subjective - Date & Time of Evaluation Date of Evaluation: 04/14/18 Time of Evaluation: 07:40 - Subjective Subjective: Patient seen and examined this morning at bedside, NAD. S/p chest tube placement and resolved pneumothorax. C/o pain at chest tube site, denies any breathing difficulties, cough, chest pain, abdominal pain or urinary symptoms. Tolerating PO intake. - Chest CT was ordered: Patient refused CT, he is worried about radiation ( patient spoke with neurosurgical nurse practitioner about chest CT and patient will consider CT tomorrow) Objective - Vital Signs/Intake and Output Vital Signs (last 24 hours): Temp Pulse Resp BP Pulse Ox 97.4 F L 92 H 24 110/74 98 04/14/18 08:00 04/14/18 08:00 04/14/18 08:00 04/14/18 08:00 04/14/18 08:00 Intake and Output: 04/14/18 04/14/18 06:59 18:59 Intake Total 200 Output Total 300 Balance -100 - Medications Medications: Current Medications Acetaminophen (Tylenol 325mg Tab) 650 mg PO Q4 PRN PRN Reason: Pain, Mild (1-3) Albuterol (Ventolin Hfa 90 Mcg/Actuation (8 G)) 2 puff IH Q6 PRN PRN Reason: Shortness of Breath Albuterol/Ipratropium (Duoneb 3 Mg/0.5 Mg (3 Ml) Ud) 3 ml INH RQ4 [facility] Last Admin: 04/14/18 07:36 Dose: 3 ml Amitriptyline HCl (Elavil) 10 mg PO HS [facility] Enoxaparin Sodium (Lovenox) 40 mg SC DAILY [facility] PRN Reason: Protocol Famotidine (Pepcid) 20 mg PO HS [facility] Home Med (Budesonide [Entocort Ec]) 9 mg PO DAILY [facility] Sodium Chloride (Sodium Chloride 0.9%) 1,000 mls @ 125 mls/hr IV .Q8H [facility] Stop: 04/15/18 02:26 Last Admin: 04/14/18 06:27 Dose: 125 mls/hr Montelukast Sodium (Singulair) 10 mg PO HS [facility] Morphine Sulfate (Morphine) 4 mg IVP Q4 PRN PRN Reason: Pain, severe (8-10) Last Admin: 04/14/18 05:33 Dose: 4 mg Prednisone (Prednisone Tab) 50 mg PO DAILY [facility] Fluticasone/Salmeterol (Advair Diskus 500/50) 1 puff INH Q12 [facility] Tramadol HCl (Ultram) 50 mg PO Q6 PRN PRN Reason: Pain, moderate (4-7) - Labs Labs: 04/13/18 20:21 04/13/18 21:21 PT 12.4 Seconds (9.8-13.1) 04/13/18 23:00 INR 1.1 04/13/18 23:00 APTT 35.3 Seconds (25.6-37.1) 04/13/18 23:00 - Constitutional Appears: No Acute Distress - Head Exam Head Exam: NORMAL INSPECTION - Eye Exam Eye Exam: EOMI, Normal appearance, PERRL Pupil Exam: NORMAL ACCOMODATION - ENT Exam ENT Exam: Mucous Membranes Moist, Normal Exam - Neck Exam Neck Exam: Full ROM, Normal Inspection. absent: Tenderness, Thyromegaly - Respiratory Exam Respiratory Exam: Wheezes (Scattered ), NORMAL BREATHING PATTERN (Right lung Chest tube placed ). absent: Accessory Muscle Use, Chest Wall Tenderness, Decreased Breath Sounds, Prolonged Expiratory Phase - Cardiovascular Exam Cardiovascular Exam: REGULAR RHYTHM, +S1, +S2 - GI/Abdominal Exam GI & Abdominal Exam: Soft, Normal Bowel Sounds. absent: Distended, Tenderness, Diminished Bowel Sounds, Hernia, Organomegaly, Rebound - Extremities Exam Extremities Exam: Full ROM, Normal Capillary Refill, Normal Inspection. absent : Pedal Edema, Tenderness - Back Exam Back Exam: NORMAL INSPECTION. absent: CVA tenderness (L), CVA tenderness (R) - Neurological Exam Neurological Exam: Alert, Awake, CN II-XII Intact, Oriented x3 Neuro motor strength exam: Left Upper Extremity: 4, Right Upper Extremity: 4, Left Lower Extremity: 4, Right Lower Extremity: 4 - Psychiatric Exam Psychiatric exam: Normal Affect - Skin Additional comments: diffuse vitiligo skin changes Assessment and Plan - Assessment and Plan (Free Text) Assessment: A/P: 42 yo male with PMH of Severe Persistent asthma, COPD, gastritis, pancreatitis, and Eosinophilic colitis Admitted for asthma exacerbation and iatrogenic Pneumothorax. Right Lung Pneumothorax s/p chest tube placement, s/p lung biopsy 04/09/18; pending results - Thoracic Surgery Consulted, Dr. Yo, recommendations appreciated - CXR s/p chest tube: resolved pneumothorax - Follow up daily CXRs and CT chest w/o Cont (Patient refused CT today, will consider tomorrow) - Monitor pleura-vac output, vital signs and respiratory status - Follow up Surgery recommendations - Pain management: Morphine 4mg Q4H PRN and Ultram 50mg Q6H PRN History of Severe Persistent asthma and COPD - Controlled, no exacerbation - S/p Prednisone and Methypred - C/w home medications: Duoneb Q4, Fluticasone/salmeterol BID, Albuterol inh PRN Eosinophilic collitis - Continue PPI, Pepcid and budesonide. - Patients pain is well controlled since superior hypogastric plexus block - Patient to follow up with Rheumatology, Dr. Brown as outpatient - Consult GI, Dr. Heart, will follow recommendations DVT prophylaxis - SCDs - Lovenox 40 SC daily
--- NOTE | 2018-04-14 09:00 | RAD ---
Date of service: 04/13/2018 HISTORY: copd exacerbation, recent R lung biopsy COMPARISON: 04/08/2018 at 1300 hours TECHNIQUE: Chest PA and lateral FINDINGS: LUNGS: An interval moderate size pneumothorax is present. The retracted lung pleural surface projects 7 cm from the right apex Indeterminate patchy opacity right lung base relating to in part patient's recently biopsied right basal mass with or without some pleural parenchymal contiguous pathology here PLEURA: No significant pleural effusion identified. No pneumothorax apparent. CARDIOVASCULAR: Normal. OSSEOUS STRUCTURES: No significant abnormalities. VISUALIZED UPPER ABDOMEN: Normal. OTHER FINDINGS: None. IMPRESSION: Interval moderate-size right pneumothorax These findings were not known prior to this dictation as a subsequent chest x-ray shows a right chest tube insertion and re-expansion of most of this right pneumothorax Other findings as above.
[2018-04-14] MEDS: Enoxaparin 40 mg Syringe SC SCH (09:15)
[2018-04-14] MEDS: Fluticasone-Salmeterol 500-50mcg Diskus INH SCH ×2 (10:00→21:43)
--- NOTE | 2018-04-14 11:55 | PQF ---
PROVIDER RESPONSE TEXT: COPD exacerbation ruled, patient respiratory status improved s/p chest tube for right sided pneumotho rax REVIEWER QUERY TEXT: Conflicting Documentation Clarification A single mention of COPD EXACERBATION by the ER for the same clinical presentation appears in the rec ord. Please clarify if COPD exacerbation is ruled in or out. Please also document if the condition is: -- Confirmed and current -- Confirmed, treated and resolved -- Ruled out -- Other, please specify The patient's Clinical Indicators include: Patient presents with SOB. Diagnoses include: Iatrogenic Pneumothorax, Acute exacerbation of Asthma, Acute exacerbation of COPD Rx: Chest tube insertion, Solumedrol, Nebulizer Query created by: Sol Borges on 04/14/2018 8:07 AM Electronically signed by: Alina Wolfe 04/14/2018 11:52 AM
--- NOTE | 2018-04-14 11:55 | PQF ---
PROVIDER RESPONSE TEXT: Low BMI due to chronic eosinophillic colitis REVIEWER QUERY TEXT: Clarification of Clinical Diagnostic Findings Please clarify if there is an associated diagnosis or not to go along with the low BMI. Please clarify documentation or clinical relevance for the clinical / diagnostic findings or whether those are insignificant or unable to be further specified. The patient's Clinical Indicators include: EMR has the patient listed as 5' 8", weighing 120 pounds with a BMI of 18.2 Query created by: oSl Borges on 04/14/2018 8:11 AM Electronically signed by: Alina Wolfe 04/14/2018 11:52 AM
--- NOTE | 2018-04-14 14:40 | CP.PCM.PN ---
Subjective - Date & Time of Evaluation Date of Evaluation: 04/14/18 Time of Evaluation: 14:31 - Subjective Subjective: Reason for consultation: Pneumothorax Percutaneous lung bx. Requested by ER Progress noted and imaging studies reviewed and the pt examined. 42 yo male with pmh of significant multiple comorbidities presented to ER with sob following percutaneous lung bx(right lung lesion) on 04-08-18 cxr in ER showed 50% right penumothorax. A 28 f chest tube was inserted in the ER. Immediated sym[tomatic imrovement but f/u cxr-shows residual right apical pneumotlhorax. ct of chest stat to assess the extent of pneumthnorax for further RX plan. a/p: Stat ct of chest. Chest tube to continuous suction at 20cm H2O. Pain control. Incentive spirometer. Objective - Vital Signs/Intake and Output Vital Signs (last 24 hours): Temp Pulse Resp BP Pulse Ox 97.5 F L 92 H 17 93/66 L 97 04/14/18 12:00 04/14/18 12:00 04/14/18 12:00 04/14/18 12:00 04/14/18 12:00 Intake and Output: 04/14/18 04/14/18 06:59 18:59 Intake Total 200 Output Total 300 Balance -100 - Medications Medications: Current Medications Acetaminophen (Tylenol 325mg Tab) 650 mg PO Q4 PRN PRN Reason: Pain, Mild (1-3) Albuterol (Ventolin Hfa 90 Mcg/Actuation (8 G)) 2 puff IH Q6 PRN PRN Reason: Shortness of Breath Albuterol/Ipratropium (Duoneb 3 Mg/0.5 Mg (3 Ml) Ud) 3 ml INH RQ4 [facility] Last Admin: 04/14/18 11:26 Dose: 3 ml Amitriptyline HCl (Elavil) 10 mg PO HS [facility] Enoxaparin Sodium (Lovenox) 40 mg SC DAILY [facility] PRN Reason: Protocol Famotidine (Pepcid) 20 mg PO HS [facility] Home Med (Budesonide [Entocort Ec]) 9 mg PO DAILY [facility] Sodium Chloride (Sodium Chloride 0.9%) 1,000 mls @ 125 mls/hr IV .Q8H [facility] Stop: 04/15/18 02:26 Last Admin: 04/14/18 06:27 Dose: 125 mls/hr Montelukast Sodium (Singulair) 10 mg PO HS [facility] Morphine Sulfate (Morphine) 4 mg IVP Q4 PRN PRN Reason: Pain, severe (8-10) Last Admin: 04/14/18 10:32 Dose: 4 mg Fluticasone/Salmeterol (Advair Diskus 500/50) 1 puff INH Q12 [facility] Last Admin: 04/14/18 10:00 Dose: 1 puff Tramadol HCl (Ultram) 50 mg PO Q6 PRN PRN Reason: Pain, moderate (4-7) - Labs Labs: 04/13/18 20:21 04/13/18 21:21 PT 12.4 Seconds (9.8-13.1) 04/13/18 23:00 INR 1.1 04/13/18 23:00 APTT 35.3 Seconds (25.6-37.1) 04/13/18 23:00
--- NOTE | 2018-04-14 15:32 | RAD ---
Date of service: 04/14/2018 PROCEDURE: CHEST RADIOGRAPH, 1 VIEW HISTORY: s/p RCT for PTX COMPARISON: The the FINDINGS: LUNGS: No change in situ right-sided chest tube. Suspect tiny residual right apical pneumothorax. Slightly. Persistent overlying subcutaneous emphysema right abner thorax partially obscures fine soft tissue detail. . PLEURA: No pneumothorax or pleural fluid seen. CARDIOVASCULAR: Normal. OSSEOUS STRUCTURES: No significant abnormalities. VISUALIZED UPPER ABDOMEN: Normal. OTHER FINDINGS: None. IMPRESSION: In situ right-sided chest tube. Subcutaneous emphysema over the right abner thorax partially obscures fine soft tissue detail. Suspect tiny residual right apical pneumothorax.
--- NOTE | 2018-04-14 17:39 | CT ---
Date of service: 04/14/2018 PROCEDURE: CT Chest without contrast HISTORY: R chest tube; Pneumothorax COMPARISON: Correlation made with CT-guided biopsy 10/27/2017. Comparison made with prior CTA chest dated 02/09 18. . Comparison also made with chest radiograph obtained earlier same day. TECHNIQUE: Contiguous axial images were obtained through the chest without intravenous contrast enhancement. Sagittal and coronal reconstructions were performed. Radiation dose (DLP): 259.35 mGy-cm. This CT exam was performed using one or more of the following dose reduction techniques: Automated exposure control, adjustment of the mA and/or kV according to patient size, and/or use of iterative reconstruction technique. FINDINGS: LUNGS: In situ right-sided chest tube. Re- demonstrated are multiple nodular opacities seen scattered throughout the right lower lobe the largest in the measuring approximately 2.2 x 2.0 cm. In addition, there is a elliptical shaped somewhat confluent opacity. Confluent opacities are also seen in the left lung apex with scattered areas of atelectasis and or scarring left upper lobe. Small elliptical shaped nodular opacity also present in the medial aspect left upper lobe bordering the posteromedial pleural surface. Re- demonstrated is a moderate amount of subcutaneous emphysema overlying the right anterior chest wall which extends superiorly into the right base of neck and soft tissues of the right shoulder/ upper extremity. MEDIASTINUM: Unremarkable thoracic aorta. No aneurysm. Normal sized heart. No significant pericardial effusion Main pulmonary artery unremarkable. No vascular congestion. Few small nonspecific mediastinal lymph nodes are present. Evaluation for hilar adenopathy limited due to the lack of circulating intravenous contrast material. There is a small hiatal hernia with slight wall thickening of the distal esophagus likely due to protrusion gastric mucosa. Possibility of esophagitis not excluded. Central airways are midline and patent. No large central endoluminal lesions. PLEURA: Small residual right apical and basilar next pneumothorax. BONES: Minor multilevel degenerative spondylosis of the thoracic spine. Osseous structures appear grossly intact. UPPER ABDOMEN: Upper abdominal structures unremarkable. OTHER FINDINGS: None. IMPRESSION: In situ right-sided chest tube. There is a small residual right apical and basilar pneumothorax. Multiple scattered varying sized nodular opacities the bulk of which are located in the mid right lower lobe largest measuring approximately 2.2 x 2.1 cm. There also areas of atelectasis and or scarring changes in the left upper lobe middle lobe and lingular regions.
[2018-04-15] MEDS: Sodium Chloride 0.9% 1,000 ML IV SCH ×6 (01:52→20:45)
[2018-04-15] MEDS: Morphine 4 MG/ML VIAL IVP PRN ×2 (02:03→10:31)
[2018-04-15] MEDS: Albuterol-Ipratrop 3 mg / 0.5 (3 ml) UD INH SCH ×5 (03:47→18:59)
[2018-04-15 06:12] LABS: HEMOGLOBIN 11.3 g/dL (12.0-18.0); LYMPH # 1.6 K/uL (1.0-4.3); MEAN CELL VOLUME 88.1 fl (80.0-94.0); MEAN CORPUSCULAR HEMOGLOBIN 28.8 pg (27.0-31.0); MEAN CORPUSCULAR HGB CONC 32.7 g/dL (33.0-37.0); MEAN PLATELET VOLUME 8.4 fl (7.2-11.7); MONO # 1.3 K/uL (0.0-0.8); MONO % 9.9 % (0.0-10.0); NEUT # 10.6 K/uL (1.8-7.0); NEUT % 78.1 % (50.0-75.0); RBC 3.92 Mil/uL (4.40-5.90); RED CELL DISTRIBUTION WIDTH 15.1 % (11.5-14.5); WHITE BLOOD COUNT 13.6 K/uL (4.8-10.8)
--- NOTE | 2018-04-15 07:35 | CP.PCM.CON ---
<DaikristinshaanJulio - Last Filed: 04/15/18 09:41> History of Present Illness - History of Present Illness History of Present Illness: GI fellow PGY4, progress note. Joaquin Avalos is a 42yo M well known to Dr. Heart who presented with SOB after right lung biopsy and found to have pneumothorax on imaging. We were consulted for recommendations on steroids, and diet. Patient is s/p chest tube and have less abdominal pain after plexus block. He has been compliant with diet and medications including budesonide. PMH: asthma, gastritis, vitiligo, pancreatitis, NSTEMI and multifocal pneumonia , PUD, Eosinophilic colitis. PSH: Thermoplasty 4 times procedures, last one on november 2017. Cardic cath november 2017 at [facility]. Celiac plexus block 04/24. SH: Patient reports social alcohol use, denies smoking or illicit drug use FH: Father, alive, hx of asthma and hypercholesterolemia. Mother, alive, hx of trigeminal neuralgia. 12pt ROS completed and negative except for above. Past Patient History - Infectious Disease Hx of Infectious Diseases: None - Past Medical History & Family History Past Medical History?: Yes - Past Social History Smoking Status: Never Smoked - CARDIAC Hx Congestive Heart Failure: Yes - PULMONARY Hx Asthma: Yes Hx Chronic Obstructive Pulmonary Disease (COPD): Yes Hx Pneumonia: Yes - NEUROLOGICAL Hx Neurological Disorder: No - HEENT Hx HEENT Problems: No - RENAL Hx Chronic Kidney Disease: No - ENDOCRINE/METABOLIC Hx Endocrine Disorders: No - HEMATOLOGICAL/ONCOLOGICAL Hx Human Immunodeficiency Virus (HIV): No - INTEGUMENTARY Hx Dermatological Problems: No - MUSCULOSKELETAL/RHEUMATOLOGICAL Hx Falls: No - GASTROINTESTINAL Hx Diverticulitis: Yes Hx Gastritis: Yes Hx Pancreatitis: Yes - GENITOURINARY/GYNECOLOGICAL Hx Genitourinary Disorders: No - PSYCHIATRIC Hx Substance Use: No - SURGICAL HISTORY Hx Surgeries: Yes Other/Comment: I&D LEG ABSCESS - ANESTHESIA Hx Anesthesia: Yes Hx Anesthesia Reactions: No Hx Malignant Hyperthermia: No Meds Allergies/Adverse Reactions: Allergies Allergy/AdvReac Type Severity Reaction Status Date / Time wheat Allergy PAIN Verified 04/07/18 10:57 - Medications Medications: Current Medications Acetaminophen (Tylenol 325mg Tab) 650 mg PO Q4 PRN PRN Reason: Pain, Mild (1-3) Albuterol (Ventolin Hfa 90 Mcg/Actuation (8 G)) 2 puff IH Q6 PRN PRN Reason: Shortness of Breath Albuterol/Ipratropium (Duoneb 3 Mg/0.5 Mg (3 Ml) Ud) 3 ml INH RQ4 [facility] Last Admin: 04/15/18 03:47 Dose: 3 ml Amitriptyline HCl (Elavil) 10 mg PO HS [facility] Last Admin: 04/14/18 21:44 Dose: 10 mg Enoxaparin Sodium (Lovenox) 40 mg SC DAILY [facility] PRN Reason: Protocol Last Admin: 04/14/18 09:15 Dose: Not Given Famotidine (Pepcid) 20 mg PO HS [facility] Last Admin: 04/14/18 21:44 Dose: 20 mg Home Med (Budesonide [Entocort Ec]) 9 mg PO DAILY [facility] Montelukast Sodium (Singulair) 10 mg PO HS [facility] Last Admin: 04/14/18 21:43 Dose: 10 mg Morphine Sulfate (Morphine) 4 mg IVP Q4 PRN PRN Reason: Pain, severe (8-10) Last Admin: 04/14/18 21:51 Dose: 4 mg Fluticasone/Salmeterol (Advair Diskus 500/50) 1 puff INH Q12 [facility] Last Admin: 04/14/18 21:43 Dose: 1 puff Tramadol HCl (Ultram) 50 mg PO Q6 PRN PRN Reason: Pain, moderate (4-7) Physical Exam - Constitutional Appears: Non-toxic, Chronically Ill - Head Exam Head Exam: NORMAL INSPECTION - Eye Exam Eye Exam: Normal appearance - Respiratory Exam Respiratory Exam: Clear to Auscultation Bilateral, Wheezes, NORMAL BREATHING PATTERN - Cardiovascular Exam Cardiovascular Exam: REGULAR RHYTHM, +S1, +S2 - GI/Abdominal Exam GI & Abdominal Exam: Normal Bowel Sounds, Tenderness. absent: Organomegaly - Extremities Exam Extremities exam: Positive for: normal inspection - Neurological Exam Neurological exam: Alert, Oriented x3 - Psychiatric Exam Psychiatric exam: Normal Affect, Normal Mood Results - Vital Signs Recent Vital Signs: Last Vital Signs Temp 98 F 04/15/18 05:00 Pulse 92 H 04/15/18 05:43 Resp 21 04/15/18 05:43 BP 97/65 L 04/15/18 05:43 Pulse Ox 96 04/15/18 05:43 - Labs Result Diagrams: 04/15/18 04:35 04/13/18 21:21 Labs: Laboratory Results - last 24 hr 04/15/18 04:35 WBC 13.6 H RBC 3.92 L Hgb 11.3 L D Hct 34.5 L MCV 88.1 MCH 28.8 MCHC 32.7 L RDW 15.1 H Plt Count 256 MPV 8.4 Neut % (Auto) 78.1 H Lymph % (Auto) 12.0 L Sibley % (Auto) 9.9 Eos % (Auto) 0.0 Baso % (Auto) 0.0 Neut # (Auto) 10.6 H Lymph # (Auto) 1.6 Sibley # (Auto) 1.3 H Eos # (Auto) 0.0 Baso # (Auto) 0.0 Assessment & Plan - Assessment and Plan (Free Text) Assessment: 42M with hx of eosinophilia presenting with acute abdominal pain and found to have pancolitis, liver and lung lesions #Eosinophilic Colitis #Right lung biopsy #Right lung PTX s/p chest tube #Chronic Abdominal pain s/p celiac plexus block #Peptic Ulcer disease #Liver lesion #Intrahepatic biliary dilation #Lung lesion #Asthma #Vitiligo Plan: -Afeb/HDS -Continue budesonide -Path results pending. -HOLD high dose steroids until pathology results return. -Continue current diet. Will discuss with Magalis, engraver pantograph, and make diet changes as needed. -Discussed with surgical team about tube repositioning. - Date & Time Date: 04/15/18 Time: 07:33 <Naren Heart - Last Filed: 04/15/18 12:55> Meds - Medications Medications: Current Medications Acetaminophen (Tylenol 325mg Tab) 650 mg PO Q4 PRN PRN Reason: Pain, Mild (1-3) Albuterol (Ventolin Hfa 90 Mcg/Actuation (8 G)) 2 puff IH Q6 PRN PRN Reason: Shortness of Breath Albuterol/Ipratropium (Duoneb 3 Mg/0.5 Mg (3 Ml) Ud) 3 ml INH RQ4 [facility] Last Admin: 04/15/18 11:21 Dose: Not Given Amitriptyline HCl (Elavil) 10 mg PO HS [facility] Last Admin: 04/14/18 21:44 Dose: 10 mg Enoxaparin Sodium (Lovenox) 40 mg SC DAILY [facility] PRN Reason: Protocol Last Admin: 04/14/18 09:15 Dose: Not Given Famotidine (Pepcid) 20 mg PO HS [facility] Last Admin: 04/14/18 21:44 Dose: 20 mg Home Med (Budesonide [Entocort Ec]) 9 mg PO DAILY [facility] Last Admin: 04/15/18 08:49 Dose: 9 mg Montelukast Sodium (Singulair) 10 mg PO HS [facility] Last Admin: 04/14/18 21:43 Dose: 10 mg Morphine Sulfate (Morphine) 4 mg IVP Q4 PRN PRN Reason: Pain, severe (8-10) Last Admin: 04/15/18 10:31 Dose: 4 mg Fluticasone/Salmeterol (Advair Diskus 500/50) 1 puff INH Q12 [facility] Last Admin: 04/15/18 08:48 Dose: 1 puff Tramadol HCl (Ultram) 50 mg PO Q6 PRN PRN Reason: Pain, moderate (4-7) Results - Vital Signs Recent Vital Signs: Last Vital Signs Temp 97.7 F 04/15/18 12:00 Pulse 98 H 04/15/18 12:00 Resp 19 04/15/18 12:00 BP 120/80 04/15/18 12:00 Pulse Ox 99 04/15/18 12:00 - Labs Result Diagrams: 04/15/18 04:35 04/13/18 21:21 Labs: Laboratory Results - last 24 hr 04/15/18 04:35 WBC 13.6 H RBC 3.92 L Hgb 11.3 L D Hct 34.5 L MCV 88.1 MCH 28.8 MCHC 32.7 L RDW 15.1 H Plt Count 256 MPV 8.4 Neut % (Auto) 78.1 H Lymph % (Auto) 12.0 L Sibley % (Auto) 9.9 Eos % (Auto) 0.0 Baso % (Auto) 0.0 Neut # (Auto) 10.6 H Lymph # (Auto) 1.6 Sibley # (Auto) 1.3 H Eos # (Auto) 0.0 Baso # (Auto) 0.0 Attending/Attestation - Attestation I have personally seen and examined this patient.: Yes I have fully participated in the care of the patient.: Yes I have reviewed all pertinent clinical information: Yes Notes (Text): 04/15/18 12:51 Patient seen with GI fellow at bedside and discussed with MICU staff, surgery team and PMD. In a nutshell this is a 42 yr old male patient with hx of eosinophilia, liver and lung lesions pancolitis on budenoside 9 mg daily, presenting with SOB after lung biopsy last week in setting of pneumothorax s/p right sided chest tube. liver and lung lesions. Had increased IgG on serological testing with intra hepatic dilattaion. 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 Rheumatology work up in progress for vasculitis and rule out IgG4. I had started amitryptiline SNRI at small dose for abdominal cramps and sleep which has completely resolved now. Regular diet as tolerated. Pending LUNG BIOPSY RESULTS and staining will chnage the steroids from budesonide to prednisolone. Will need outpatient follow up with PMD, GI and rheumatology. No Gi intervention required. Rest of plan for pneumothorax as per primary team, pulmonology and MICU. thank you for letting us participate in the care of your patient
[2018-04-15] MEDS: Fluticasone-Salmeterol 500-50mcg Diskus INH SCH ×2 (08:48→21:03)
--- NOTE | 2018-04-15 08:48 | CP.PCM.PN ---
Subjective - Date & Time of Evaluation Date of Evaluation: 04/15/18 Time of Evaluation: 07:25 - Subjective Subjective: Thoracic Surgery Dr. Yo Pt S&E @bedside. CTC performed yesterday shows residual PTX. NAEO. pain and SOB improved. denies F/C, N/V. tolerating diet. Objective - Vital Signs/Intake and Output Vital Signs (last 24 hours): Temp Pulse Resp BP Pulse Ox 97.9 F 101 H 20 100/72 95 04/15/18 08:00 04/15/18 08:00 04/15/18 08:00 04/15/18 08:00 04/15/18 08:00 Intake and Output: 04/15/18 04/15/18 06:59 18:59 Intake Total 1175 Output Total 102 Balance 1073 - Medications Medications: Current Medications Acetaminophen (Tylenol 325mg Tab) 650 mg PO Q4 PRN PRN Reason: Pain, Mild (1-3) Albuterol (Ventolin Hfa 90 Mcg/Actuation (8 G)) 2 puff IH Q6 PRN PRN Reason: Shortness of Breath Albuterol/Ipratropium (Duoneb 3 Mg/0.5 Mg (3 Ml) Ud) 3 ml INH RQ4 [facility] Last Admin: 04/15/18 07:55 Dose: 3 ml Amitriptyline HCl (Elavil) 10 mg PO HS [facility] Last Admin: 04/14/18 21:44 Dose: 10 mg Enoxaparin Sodium (Lovenox) 40 mg SC DAILY [facility] PRN Reason: Protocol Last Admin: 04/14/18 09:15 Dose: Not Given Famotidine (Pepcid) 20 mg PO HS [facility] Last Admin: 04/14/18 21:44 Dose: 20 mg Home Med (Budesonide [Entocort Ec]) 9 mg PO DAILY [facility] Montelukast Sodium (Singulair) 10 mg PO HS [facility] Last Admin: 04/14/18 21:43 Dose: 10 mg Morphine Sulfate (Morphine) 4 mg IVP Q4 PRN PRN Reason: Pain, severe (8-10) Last Admin: 04/14/18 21:51 Dose: 4 mg Fluticasone/Salmeterol (Advair Diskus 500/50) 1 puff INH Q12 [facility] Last Admin: 04/14/18 21:43 Dose: 1 puff Tramadol HCl (Ultram) 50 mg PO Q6 PRN PRN Reason: Pain, moderate (4-7) - Labs Labs: 04/15/18 04:35 04/13/18 21:21 PT 12.4 Seconds (9.8-13.1) 04/13/18 23:00 INR 1.1 04/13/18 23:00 APTT 35.3 Seconds (25.6-37.1) 04/13/18 23:00 - Constitutional Appears: Non-toxic, No Acute Distress - Head Exam Head Exam: NORMAL INSPECTION - Eye Exam Eye Exam: Normal appearance - ENT Exam ENT Exam: Mucous Membranes Moist - Respiratory Exam Respiratory Exam: NORMAL BREATHING PATTERN. absent: Accessory Muscle Use, Respiratory Distress Additional comments: RCT in place @14cm. on suction. no leak - Cardiovascular Exam Cardiovascular Exam: Tachycardia, REGULAR RHYTHM. absent: Bradycardia - GI/Abdominal Exam GI & Abdominal Exam: Soft. absent: Distended, Tenderness - Extremities Exam Extremities Exam: Normal Inspection - Neurological Exam Neurological Exam: Alert, Awake, Oriented x3 - Psychiatric Exam Psychiatric exam: Anxious, Normal Affect - Skin Skin Exam: Dry, Intact, Warm Additional comments: vitiligo; sunburn to back/neck Assessment and Plan - Assessment and Plan (Free Text) Assessment: 42 y/o M w/ iatrogenic R PTX 2/2 lung Bx, POD#2 s/p R chest tube placement - plan to adjust R chest tube positioning - cont pain management - monitor vitals - monitor labs - encourage OOB to chair/Amb/IS use Pt discussed w/ Dr. Sanaz Shin DO PGY3
[2018-04-15] MEDS: BUDESONIDE 3 MG PO SCH (08:49)
--- NOTE | 2018-04-15 09:14 | CP.PCM.PN ---
Subjective - Date & Time of Evaluation Date of Evaluation: 04/15/18 Time of Evaluation: 07:15 - Subjective Subjective: Patient seen and examined this morning at bedside. NAD, having his breakfast, reports right chest pain at chest tube site, no acute event overnight. Denies any chest pain, SOB, dizziness, abdominal pain or urinary symptoms. Chest tube: No output noted, S/p day 2 Objective - Vital Signs/Intake and Output Vital Signs (last 24 hours): Temp Pulse Resp BP Pulse Ox 97.9 F 101 H 20 100/72 95 04/15/18 08:00 04/15/18 08:00 04/15/18 08:00 04/15/18 08:00 04/15/18 08:00 Intake and Output: 04/15/18 04/15/18 06:59 18:59 Intake Total 1175 Output Total 102 Balance 1073 - Medications Medications: Current Medications Acetaminophen (Tylenol 325mg Tab) 650 mg PO Q4 PRN PRN Reason: Pain, Mild (1-3) Albuterol (Ventolin Hfa 90 Mcg/Actuation (8 G)) 2 puff IH Q6 PRN PRN Reason: Shortness of Breath Albuterol/Ipratropium (Duoneb 3 Mg/0.5 Mg (3 Ml) Ud) 3 ml INH RQ4 [facility] Last Admin: 04/15/18 07:55 Dose: 3 ml Amitriptyline HCl (Elavil) 10 mg PO HS [facility] Last Admin: 04/14/18 21:44 Dose: 10 mg Enoxaparin Sodium (Lovenox) 40 mg SC DAILY [facility] PRN Reason: Protocol Last Admin: 04/14/18 09:15 Dose: Not Given Famotidine (Pepcid) 20 mg PO HS [facility] Last Admin: 04/14/18 21:44 Dose: 20 mg Home Med (Budesonide [Entocort Ec]) 9 mg PO DAILY [facility] Montelukast Sodium (Singulair) 10 mg PO HS [facility] Last Admin: 04/14/18 21:43 Dose: 10 mg Morphine Sulfate (Morphine) 4 mg IVP Q4 PRN PRN Reason: Pain, severe (8-10) Last Admin: 04/14/18 21:51 Dose: 4 mg Fluticasone/Salmeterol (Advair Diskus 500/50) 1 puff INH Q12 [facility] Last Admin: 04/14/18 21:43 Dose: 1 puff Tramadol HCl (Ultram) 50 mg PO Q6 PRN PRN Reason: Pain, moderate (4-7) - Labs Labs: 04/15/18 04:35 04/13/18 21:21 PT 12.4 Seconds (9.8-13.1) 04/13/18 23:00 INR 1.1 04/13/18 23:00 APTT 35.3 Seconds (25.6-37.1) 04/13/18 23:00 - Constitutional Appears: No Acute Distress - Head Exam Head Exam: NORMAL INSPECTION - Eye Exam Eye Exam: EOMI, Normal appearance, PERRL Pupil Exam: NORMAL ACCOMODATION, PERRL - ENT Exam ENT Exam: Mucous Membranes Moist - Neck Exam Neck Exam: Full ROM, Normal Inspection - Respiratory Exam Respiratory Exam: Clear to Ausculation Bilateral. absent: Accessory Muscle Use , Chest Wall Tenderness, Decreased Breath Sounds, Prolonged Expiratory Phase, Rales, Rhonchi, Wheezes, Respiratory Distress Additional comments: Right side subcutaneous emphysema Chest tube in place, dressing d/c/i, no chest tube output noted. - Cardiovascular Exam Cardiovascular Exam: REGULAR RHYTHM, +S1, +S2 - GI/Abdominal Exam GI & Abdominal Exam: Soft, Normal Bowel Sounds. absent: Distended, Rigid, Tenderness, Hernia, Organomegaly - Extremities Exam Extremities Exam: Full ROM, Normal Capillary Refill, Normal Inspection. absent : Pedal Edema, Tenderness - Back Exam Back Exam: NORMAL INSPECTION. absent: CVA tenderness (L), CVA tenderness (R) - Neurological Exam Neurological Exam: Alert, Awake, CN II-XII Intact, Normal Gait, Oriented x3 Neuro motor strength exam: Left Upper Extremity: 5, Right Upper Extremity: 5, Left Lower Extremity: 5, Right Lower Extremity: 5 - Psychiatric Exam Psychiatric exam: Normal Affect - Skin Additional comments: diffuse vitiligo skin changes Assessment and Plan - Assessment and Plan (Free Text) Assessment: A/P: 42 yo male with PMH of Severe Persistent asthma, COPD, gastritis, pancreatitis, and Eosinophilic colitis Admitted for iatrogenic Pneumothorax. Right Lung Pneumothorax s/p chest tube placement day#2, s/p lung biopsy 04/09/18 ; pending results - Thoracic Surgery Consulted, Dr. Yo, recommendations appreciated - CT Chest (04/13/18): Small residual R apical and basilar pneumothorax with R subcutaneous emphysema - Monitor pleura-vac output, vital signs and respiratory status - Follow up Surgery recommendations: Possible chest tube repositioning today, follow up daily CXRs - Pain management: Morphine 4mg Q4H PRN and Ultram 50mg Q6H PRN History of Severe Persistent asthma and COPD, no acute exacerbation - Controlled, - S/p Prednisone and Methypred - C/w home medications: Duoneb Q4, Fluticasone/salmeterol BID, Albuterol inh PRN Eosinophilic collitis - Continue PPI, Pepcid and budesonide. - Patients pain is well controlled since superior hypogastric plexus block - Patient to follow up with Rheumatology, Dr. Brown as outpatient - Consult GI, Dr. Heart, recommendations appreciated History of systolic disfunction with reduced EF - Asymptomatic - Echo 12/15/17: EF 35-40% DVT prophylaxis - SCDs - Lovenox 40 SC daily
--- NOTE | 2018-04-15 10:13 | RAD ---
Date of service: 04/15/2018 PROCEDURE: CHEST RADIOGRAPH, 1 VIEW HISTORY: s/p RCT for PTX COMPARISON: Portable chest 818 9:[address] 04/14/2018. FINDINGS: LUNGS: Right chest tube unchanged in position with slightly diminished emphysematous changes at the extra thoracic right chest wall. Trace right basilar pneumothorax appears to have resolved. Right apical minimal pneumothorax is not completely excluded but may not be visible by chest radiography. No infiltrate bilaterally. No left-sided pneumothorax or pleural effusion bilaterally. PLEURA: As above. CARDIOVASCULAR: Normal. OSSEOUS STRUCTURES: No significant abnormalities. VISUALIZED UPPER ABDOMEN: Normal. OTHER FINDINGS: None. IMPRESSION: Apparent resolution of prior right basilar pneumothorax. Trace residual pneumothorax not excluded right apex. Right chest tube unchanged in position.
[2018-04-15] MEDS: Enoxaparin 40 mg Syringe SC SCH (12:05)
--- NOTE | 2018-04-15 12:21 | PQF ---
PROVIDER RESPONSE TEXT: Patient has history of systolic heart dysfunction with decreased EF REVIEWER QUERY TEXT: Heart Failure Acuity and Type Congestive Heart Failure is documented in the Medical Record. Please document the type and acuity (in cludes probable or suspected) Such as: Type: -- Combined systolic and diastolic (heart failure with reduced ejection fraction and diastolic) dysfu nction -- Diastolic (HFpEF) -- Systolic (HFrEF) -- Left heart failure -- Right heart failure -- Right heart failure due to left heart failure -- High output failure -- End stage heart failure -- Other, please specify Acuity: -- Acute -- Chronic -- Acute on chronic -- Other, please specify Also please document the underlying cause of the CHF (includes probable or suspected) The patient's Clinical Indicators include: ECHO 12/15/17: EF: 35-40% LV systolic function moderately impaired, Grade I abnormal relaxation enderter n, MR mild to moderate, SEE FULL REPORT No Medication Query created by: Sol Borges on 04/15/2018 8:55 AM Electronically signed by: Amarilis Blackwell 04/15/2018 12:17 PM
--- NOTE | 2018-04-15 12:49 | RAD ---
Date of service: 04/15/2018 PROCEDURE: CHEST RADIOGRAPH, 1 VIEW HISTORY: chest tube repositioned COMPARISON: April 15, 2018. Time of the most recent examination: 09:13. FINDINGS: LUNGS: Clear. PLEURA: No significant pneumothorax. Stable position of chest tube in the right pleural space. CARDIOVASCULAR: Normal. OSSEOUS STRUCTURES: No significant abnormalities. VISUALIZED UPPER ABDOMEN: Normal. OTHER FINDINGS: Stable subcutaneous emphysema. IMPRESSION: No appreciable pneumothorax. Chest tube position radiographically is stable.
--- NOTE | 2018-04-15 13:57 | CP.PCM.PN ---
Subjective - Date & Time of Evaluation Date of Evaluation: 04/15/18 Time of Evaluation: 13:50 - Subjective Subjective: Pt s/e. vss. ct chest(yesterday) : apical and basilar pneumothrax with chest tube in the fissure. chest tube repositioned at bedside this am by Kip Encarnacion. cxr-now(ie after repositioning of the tube): No pneumothorax. a/P: 1. chest tube to under water seal tomorrow. 2. Continue chest tube until [place](Taking steroids for eosinophilci colitis)-thus prolonged chest tube Rx. 3. Clamp chest tube on Thursday. 4. d/c chest tube on Thursday. Objective - Vital Signs/Intake and Output Vital Signs (last 24 hours): Temp Pulse Resp BP Pulse Ox 97.7 F 98 H 19 120/80 99 04/15/18 12:00 04/15/18 12:00 04/15/18 12:00 04/15/18 12:00 04/15/18 12:00 Intake and Output: 04/15/18 04/15/18 06:59 18:59 Intake Total 1175 Output Total 102 Balance 1073 - Medications Medications: Current Medications Acetaminophen (Tylenol 325mg Tab) 650 mg PO Q4 PRN PRN Reason: Pain, Mild (1-3) Albuterol (Ventolin Hfa 90 Mcg/Actuation (8 G)) 2 puff IH Q6 PRN PRN Reason: Shortness of Breath Albuterol/Ipratropium (Duoneb 3 Mg/0.5 Mg (3 Ml) Ud) 3 ml INH RQ4 [facility] Last Admin: 04/15/18 11:21 Dose: Not Given Amitriptyline HCl (Elavil) 10 mg PO [facility] Last Admin: 04/14/18 21:44 Dose: 10 mg Enoxaparin Sodium (Lovenox) 40 mg SC DAILY [facility] PRN Reason: Protocol Last Admin: 04/14/18 09:15 Dose: Not Given Famotidine (Pepcid) 20 mg PO [facility] Last Admin: 04/14/18 21:44 Dose: 20 mg Home Med (Budesonide [Entocort Ec]) 9 mg PO DAILY [facility] Last Admin: 04/15/18 08:49 Dose: 9 mg Montelukast Sodium (Singulair) 10 mg PO [facility] Last Admin: 04/14/18 21:43 Dose: 10 mg Morphine Sulfate (Morphine) 4 mg IVP Q4 PRN PRN Reason: Pain, severe (8-10) Last Admin: 04/15/18 10:31 Dose: 4 mg Fluticasone/Salmeterol (Advair Diskus 500/50) 1 puff INH Q12 [facility] Last Admin: 04/15/18 08:48 Dose: 1 puff Tramadol HCl (Ultram) 50 mg PO Q6 PRN PRN Reason: Pain, moderate (4-7) - Labs Labs: 04/15/18 04:35 04/13/18 21:21 PT 12.4 Seconds (9.8-13.1) 04/13/18 23:00 INR 1.1 04/13/18 23:00 APTT 35.3 Seconds (25.6-37.1) 04/13/18 23:00
[2018-04-15] MEDS ORDERED: Sodium Chloride 3% for Inhalation 4 ML VIAL.NEB IH PRN (17:39)
--- NOTE | 2018-04-15 18:23 | RAD ---
Date of service: 04/15/2018 HISTORY: sob/tachypnea COMPARISON: Multiple serial examinations preceding the most recent study: April 15, 2018. Time of the most recent examination: 12:03. FINDINGS: LUNGS: Progressive infiltrates left lung. Is particularly evident left lower lobe, retrocardiac region. PLEURA: Stable position of chest tube in the right pleural space. No significant pneumothorax identified. CARDIOVASCULAR: Normal. OSSEOUS STRUCTURES: No significant abnormalities. VISUALIZED UPPER ABDOMEN: Normal. OTHER FINDINGS: Stable subcutaneous emphysema. IMPRESSION: Progressive left lower lobe infiltrate. Stable findings in the right abner thorax
[2018-04-15] MEDS ORDERED: Albuterol-Ipratrop 3 mg / 0.5 (3 ml) UD INH STA (18:32)
[2018-04-15] MEDS ORDERED: Lidocaine/Prilocaine CREAM 5GM TP ONE (18:48)
[2018-04-15 19:05] LABS: ABG ALLEN TEST YES; ARTERIAL BLOOD GAS HCO3 25.7 mmol/L (21-28); ARTERIAL BLOOD GAS O2 SAT 99.7 % (95-98); ARTERIAL BLOOD GAS PCO2 33 mm/Hg (35-45); ARTERIAL BLOOD GAS PH 7.47 (7.35-7.45); ARTERIAL BLOOD GAS PO2 139 mm/Hg (80-100)
[2018-04-15 20:08] LABS: BASO % 0.1 % (0.0-2.0); EOS # 0.1 K/uL (0.0-0.7); EOS % 0.5 % (0.0-4.0); HEMOGLOBIN 11.4 g/dL (12.0-18.0); LYMPH # 1.4 K/uL (1.0-4.3); LYMPH % 7.4 % (20.0-40.0); MEAN CELL VOLUME 87.7 fl (80.0-94.0); MEAN CORPUSCULAR HEMOGLOBIN 28.1 pg (27.0-31.0); MEAN CORPUSCULAR HGB CONC 32.1 g/dL (33.0-37.0); MEAN PLATELET VOLUME 8.4 fl (7.2-11.7); MONO # 1.2 K/uL (0.0-0.8); MONO % 6.3 % (0.0-10.0); NEUT # 15.8 K/uL (1.8-7.0); NEUT % 85.7 % (50.0-75.0); NRBC % 0.1 % (0.0-0.0); PLATELET COUNT 257 K/uL (130-400); RBC 4.05 Mil/uL (4.40-5.90); RED CELL DISTRIBUTION WIDTH 15.5 % (11.5-14.5); WHITE BLOOD COUNT 18.4 K/uL (4.8-10.8)
[2018-04-15 20:27] LABS: URINE BILIRUBIN NEGATIVE (NEGATIVE); URINE BLOOD NEGATIVE (NEGATIVE); URINE CLARITY CLEAR (Clear); URINE COLOR YELLOW (YELLOW); URINE GLUCOSE (UA) NEG (Normal); URINE LEUKOCYTE ESTERASE NEG Leu/uL (Negative); URINE PROTEIN NEGATIVE (NEGATIVE); URINE UROBILINOGEN 0.2-1.0 mg/dL (0.2-1.0)
[2018-04-15 20:42] LABS: ANISOCYTOSIS MODERATE; BANDS 8 % (0-2); LYMPHOCYTE 5 % (20-50); MONOCYTE 8 % (0-10); NEUTROPHIL 79 % (42-75); PLATELET ESTIMATE NORMAL (NORMAL); TOTAL CELLS COUNTED 100
[2018-04-15 20:43] LABS: LARGE PLATELETS PRESENT
[2018-04-15 20:44] LABS: HYPOCHROMIC SLIGHT
[2018-04-15 20:56] LABS: BLOOD UREA NITROGEN 19 mg/dl (9-20); CALCIUM 8.3 mg/dL (8.4-10.2); GFR AFRICAN-AMERICAN > 60; GFR NON-AFRICAN AMERICAN > 60
[2018-04-15] MEDS ORDERED: Levalbuterol 1.25 MG/3 ML Inhal Soln UD INH SCH (21:00)
[2018-04-15] MEDS: Oxycodone/Acetaminophen 5/325 mg Tab PO PRN (21:02)
[2018-04-15] MEDS: Piperacillin/Tazobact 3.375 GM in Sodium Chloride 0.9% 100 ML IVPB SCH (21:04)
--- NOTE | 2018-04-15 21:50 | CP.PCM.PCO ---
Progress - Re-Evaluation Re-evaluation Note: 04/15/18 21:36 RN had called job specification writer to evaluate patient since he had become tachycardic and tachpnic. - Patient was evaluated. Denied any pain at that time. However has been having increased cough with purulent "greenish" sputum. - Vitals were noted to be 110/74 w/ HR of 127 RR:33 on 2 L NC. Patient was noted to have a fever of 101.2. - Denies any chest pain. palpatations, N/V/D NAD CVS: tachycardia, s1s2 heard Resp: Tachpnic, Scattered wheezing noted Abd: soft, NTND Intervention CBC: 18.4 with left shift. Band neutrophil: 8% BMP ABG shock panal: Lactate: 2.4 High Flow 30% 30L Methoprednisone 125 IVP Duo neb x 3 Chest X ray shows Progressive left lower lobe infilterate. Chest tube in place. - Sputum culture/ urine culture/ blood culture x 2 A/P - Bolus 3 L Fluid - Consult ID - Vanco /Zosyn Emperical antibiotic treatment - On revaluation patient is doing much better however having new urinary retention. Most likely secondary to Ipratropium bromide side effects. - Will switch patient from duoneb to Levoalbuteral: To decrease the tachycardia and urinary retention - Will continue to monitor closely - F/U with cultures 04/15/18 21:52
[2018-04-15] MEDS ORDERED: Sodium Chloride 0.9% 1,000 ML IV SCH (22:00)
[2018-04-15] MEDS ORDERED: Oxycodone/Acetaminophen 5/325 mg Tab PO ONE (22:01)
[2018-04-15] MEDS: Levalbuterol 1.25 MG/3 ML Inhal Soln UD INH SCH (23:59)
[2018-04-16] MEDS ORDERED: Potassium Chloride 20 mEq 100 ML IVPB ONE (00:36)
[2018-04-16] MEDS ORDERED: Sodium Chloride 0.9% 1,000 ML IV SCH (00:45)
[2018-04-16] MEDS: Sodium Chloride 0.9% 1,000 ML IV SCH (01:45)
[2018-04-16] MEDS: Levalbuterol 1.25 MG/3 ML Inhal Soln UD INH SCH ×5 (03:57→19:31)
[2018-04-16] MEDS: Piperacillin/Tazobact 3.375 GM in Sodium Chloride 0.9% 100 ML IVPB SCH ×3 (04:03→17:39)
[2018-04-16 05:47] LABS: HEMOGLOBIN 10.6 g/dL (12.0-18.0); LYMPH # 0.8 K/uL (1.0-4.3); LYMPH % 3.4 % (20.0-40.0); MEAN CELL VOLUME 89.2 fl (80.0-94.0); MEAN CORPUSCULAR HEMOGLOBIN 28.3 pg (27.0-31.0); MEAN CORPUSCULAR HGB CONC 31.8 g/dL (33.0-37.0); MEAN PLATELET VOLUME 8.5 fl (7.2-11.7); MONO # 0.6 K/uL (0.0-0.8); MONO % 2.5 % (0.0-10.0); NEUT # 22.6 K/uL (1.8-7.0); NEUT % 94.1 % (50.0-75.0); PLATELET COUNT 235 K/uL (130-400); RBC 3.75 Mil/uL (4.40-5.90); RED CELL DISTRIBUTION WIDTH 15.7 % (11.5-14.5)
[2018-04-16 06:06] LABS: ALB/GLOB RATIO 0.8 (1.0-2.1); ALBUMIN 2.7 g/dL (3.5-5.0); ALT/SGPT 77 U/L (21-72); AST/SGOT 41 U/L (17-59); BLOOD UREA NITROGEN 16 mg/dl (9-20); CALCIUM 7.9 mg/dL (8.4-10.2); GFR AFRICAN-AMERICAN > 60; GFR NON-AFRICAN AMERICAN > 60
--- NOTE | 2018-04-16 08:05 | CP.PCM.PN ---
Subjective - Date & Time of Evaluation Date of Evaluation: 04/16/18 Time of Evaluation: 08:02 - Subjective Subjective: Thoracic Surgery Dr. Yo Pt S&E @bedside. Pt febrile and tachy yesterday afternoon. (+)productive cough. otherwise NAEO. pain significantly improved today. OOB to chair. denies CP, SOB , F/C, N/V. (+)flatus/BM. tolerating diet. Objective - Vital Signs/Intake and Output Vital Signs (last 24 hours): Temp Pulse Resp BP Pulse Ox 98.5 F 96 H 23 103/63 97 04/15/18 21:00 04/16/18 05:00 04/16/18 05:00 04/16/18 05:00 04/16/18 05:00 Intake and Output: 04/16/18 04/16/18 06:59 18:59 Intake Total 6350 Output Total 2300 Balance 4050 - Medications Medications: Current Medications Acetaminophen (Tylenol 325mg Tab) 650 mg PO Q4 PRN PRN Reason: Pain, Mild (1-3) Albuterol (Ventolin Hfa 90 Mcg/Actuation (8 G)) 2 puff IH Q6 PRN PRN Reason: Shortness of Breath Last Admin: 04/16/18 02:23 Dose: 2 puff Amitriptyline HCl (Elavil) 10 mg PO HS [facility] Last Admin: 04/15/18 21:03 Dose: 10 mg Docusate Sodium (Colace) 100 mg PO DAILY [facility] Last Admin: 04/15/18 22:27 Dose: 100 mg Enoxaparin Sodium (Lovenox) 40 mg SC DAILY [facility] PRN Reason: Protocol Last Admin: 04/15/18 12:05 Dose: Not Given Famotidine (Pepcid) 20 mg PO HS [facility] Last Admin: 04/15/18 21:03 Dose: 20 mg Gabapentin (Neurontin) 300 mg PO TID [facility] Last Admin: 04/15/18 18:18 Dose: Not Given Home Med (Budesonide [Entocort Ec]) 9 mg PO DAILY [facility] Last Admin: 04/15/18 08:49 Dose: 9 mg Vancomycin HCl 1 gm/ Sodium (Chloride) 250 mls @ 166.667 mls/hr IVPB Q12 [facility] PRN Reason: Protocol Last Admin: 04/15/18 21:05 Dose: 166.667 mls/hr Piperacillin Sod/Tazobactam (Sod 3.375 gm/ Sodium Chloride) 100 mls @ 100 mls/ hr IVPB Q6 [facility] PRN Reason: Protocol Last Admin: 04/16/18 04:03 Dose: 100 mls/hr Sodium Chloride (Sodium Chloride 0.9%) 1,000 mls @ 999 mls/hr IV .Q1H1M [facility] Stop: 04/16/18 21:56 Sodium Chloride (Sodium Chloride 0.9%) 1,000 mls @ 150 mls/hr IV .Q6H40M [facility] Stop: 04/17/18 00:01 Last Admin: 04/16/18 01:45 Dose: 150 mls/hr Sodium Chloride (Sodium Chloride 0.9%) 1,000 mls @ 999 mls/hr IV .Q1H1M [facility] Stop: 04/17/18 00:33 Last Admin: 04/16/18 00:45 Dose: 999 mls/hr Levalbuterol HCl (Xopenex) 1.25 mg INH RQ4 [facility] Last Admin: 04/16/18 03:57 Dose: 1.25 mg Montelukast Sodium (Singulair) 10 mg PO HS [facility] Last Admin: 04/15/18 21:02 Dose: 10 mg Oxycodone/Acetaminophen (Percocet 5/325 Mg Tab) 2 tab PO Q6 PRN PRN Reason: Pain, severe (8-10) Stop: 04/18/18 15:25 Oxycodone/Acetaminophen (Percocet 5/325 Mg Tab) 1 tab PO Q4 PRN PRN Reason: Pain, moderate (4-7) Stop: 04/18/18 15:28 Last Admin: 04/15/18 21:02 Dose: 1 tab Fluticasone/Salmeterol (Advair Diskus 500/50) 1 puff INH Q12 [facility] Last Admin: 04/15/18 21:03 Dose: 1 puff - Labs Labs: 04/16/18 04:25 04/16/18 04:25 PT 12.4 Seconds (9.8-13.1) 04/13/18 23:00 INR 1.1 04/13/18 23:00 APTT 35.3 Seconds (25.6-37.1) 04/13/18 23:00 - Constitutional Appears: Non-toxic, No Acute Distress - Head Exam Head Exam: NORMAL INSPECTION - Eye Exam Eye Exam: Normal appearance - ENT Exam ENT Exam: Mucous Membranes Moist - Respiratory Exam Respiratory Exam: NORMAL BREATHING PATTERN. absent: Accessory Muscle Use, Respiratory Distress Additional comments: R CT in place, on sxn. no leak dressing c/d/i - Cardiovascular Exam Cardiovascular Exam: REGULAR RHYTHM. absent: Bradycardia, Tachycardia - GI/Abdominal Exam GI & Abdominal Exam: Soft. absent: Distended, Tenderness - Extremities Exam Extremities Exam: Normal Inspection - Neurological Exam Neurological Exam: Alert, Awake, Oriented x3 - Psychiatric Exam Psychiatric exam: Normal Affect, Normal Mood - Skin Skin Exam: Dry, Intact, Warm. absent: Normal Color (vitiligo) Assessment and Plan - Assessment and Plan (Free Text) Assessment: 42 y/o M s/p (R) chest tube placement 2/2 iatragenic pneumothorax 2/2 R lung Bx. - cont RCT to sxn - monitor tube drainage - daily CXR - monitor labs - f/u panCx - cont IV Abx - encourage OOB to chair/Amb/IS use - GI/DVT PPx Pt discussed w/ Dr. Sanaz Shin DO PGY3
--- NOTE | 2018-04-16 08:08 | CP.PCM.PN ---
Subjective - Date & Time of Evaluation Date of Evaluation: 04/16/18 Time of Evaluation: 07:00 - Subjective Subjective: Patient seen and examined this morning. NAD, tolerating PO intake, ambulating. Reports one episode of fever 101.6 yesterday but afebrile since. denies any SOB , chest pain, Dizziness, abdominal pain or urinary symptoms. S/p POD# 3, Right chest tube placement, 10cc serosanguineous fluid collected in last 24 hours. Chest tube was repositioned yesterday by surgical team. Objective - Vital Signs/Intake and Output Vital Signs (last 24 hours): Temp Pulse Resp BP Pulse Ox 98.5 F 96 H 23 103/63 97 04/15/18 21:00 04/16/18 05:00 04/16/18 05:00 04/16/18 05:00 04/16/18 05:00 Intake and Output: 04/16/18 04/16/18 06:59 18:59 Intake Total 6350 Output Total 2300 Balance 4050 - Medications Medications: Current Medications Acetaminophen (Tylenol 325mg Tab) 650 mg PO Q4 PRN PRN Reason: Pain, Mild (1-3) Albuterol (Ventolin Hfa 90 Mcg/Actuation (8 G)) 2 puff IH Q6 PRN PRN Reason: Shortness of Breath Last Admin: 04/16/18 02:23 Dose: 2 puff Amitriptyline HCl (Elavil) 10 mg PO HS [facility] Last Admin: 04/15/18 21:03 Dose: 10 mg Docusate Sodium (Colace) 100 mg PO DAILY [facility] Last Admin: 04/15/18 22:27 Dose: 100 mg Enoxaparin Sodium (Lovenox) 40 mg SC DAILY [facility] PRN Reason: Protocol Last Admin: 04/15/18 12:05 Dose: Not Given Famotidine (Pepcid) 20 mg PO HS [facility] Last Admin: 04/15/18 21:03 Dose: 20 mg Gabapentin (Neurontin) 300 mg PO TID [facility] Last Admin: 04/15/18 18:18 Dose: Not Given Home Med (Budesonide [Entocort Ec]) 9 mg PO DAILY [facility] Last Admin: 04/15/18 08:49 Dose: 9 mg Vancomycin HCl 1 gm/ Sodium (Chloride) 250 mls @ 166.667 mls/hr IVPB Q12 [facility] PRN Reason: Protocol Last Admin: 04/15/18 21:05 Dose: 166.667 mls/hr Piperacillin Sod/Tazobactam (Sod 3.375 gm/ Sodium Chloride) 100 mls @ 100 mls/ hr IVPB Q6 [facility] PRN Reason: Protocol Last Admin: 04/16/18 04:03 Dose: 100 mls/hr Sodium Chloride (Sodium Chloride 0.9%) 1,000 mls @ 999 mls/hr IV .Q1H1M [facility] Stop: 04/16/18 21:56 Sodium Chloride (Sodium Chloride 0.9%) 1,000 mls @ 150 mls/hr IV .Q6H40M [facility] Stop: 04/17/18 00:01 Last Admin: 04/16/18 01:45 Dose: 150 mls/hr Sodium Chloride (Sodium Chloride 0.9%) 1,000 mls @ 999 mls/hr IV .Q1H1M [facility] Stop: 04/17/18 00:33 Last Admin: 04/16/18 00:45 Dose: 999 mls/hr Levalbuterol HCl (Xopenex) 1.25 mg INH RQ4 [facility] Last Admin: 04/16/18 08:05 Dose: 1.25 mg Montelukast Sodium (Singulair) 10 mg PO HS [facility] Last Admin: 04/15/18 21:02 Dose: 10 mg Oxycodone/Acetaminophen (Percocet 5/325 Mg Tab) 2 tab PO Q6 PRN PRN Reason: Pain, severe (8-10) Stop: 04/18/18 15:25 Oxycodone/Acetaminophen (Percocet 5/325 Mg Tab) 1 tab PO Q4 PRN PRN Reason: Pain, moderate (4-7) Stop: 04/18/18 15:28 Last Admin: 04/15/18 21:02 Dose: 1 tab Fluticasone/Salmeterol (Advair Diskus 500/50) 1 puff INH Q12 [facility] Last Admin: 04/15/18 21:03 Dose: 1 puff - Labs Labs: 04/16/18 04:25 04/16/18 04:25 PT 12.4 Seconds (9.8-13.1) 04/13/18 23:00 INR 1.1 04/13/18 23:00 APTT 35.3 Seconds (25.6-37.1) 04/13/18 23:00 - Constitutional Appears: No Acute Distress - Head Exam Head Exam: ATRAUMATIC, NORMAL INSPECTION - Eye Exam Eye Exam: EOMI, Normal appearance, PERRL Pupil Exam: NORMAL ACCOMODATION, PERRL - ENT Exam ENT Exam: Mucous Membranes Moist - Neck Exam Neck Exam: Full ROM, Normal Inspection - Respiratory Exam Respiratory Exam: Wheezes (Scattered R>L), NORMAL BREATHING PATTERN. absent: Accessory Muscle Use, Chest Wall Tenderness, Decreased Breath Sounds, Prolonged Expiratory Phase, Respiratory Distress Additional comments: Right side subcutaneous emphysema S/p POD# 3, right Chest tube in place, dressing d/c/i, 10cc serosanguineous output noted in last 24 hours. - Cardiovascular Exam Cardiovascular Exam: REGULAR RHYTHM, +S1, +S2 - GI/Abdominal Exam GI & Abdominal Exam: Soft, Normal Bowel Sounds. absent: Tenderness, Organomegaly, Rebound - Extremities Exam Extremities Exam: Full ROM, Normal Capillary Refill, Normal Inspection. absent : Pedal Edema, Tenderness - Back Exam Back Exam: NORMAL INSPECTION. absent: CVA tenderness (L), CVA tenderness (R) - Neurological Exam Neurological Exam: Alert, Awake, CN II-XII Intact, Oriented x3 Neuro motor strength exam: Left Upper Extremity: 5, Right Upper Extremity: 5, Left Lower Extremity: 5, Right Lower Extremity: 5 - Psychiatric Exam Psychiatric exam: Normal Affect - Skin Skin Exam: Intact Additional comments: vitiligo skin changes, diffuse Assessment and Plan - Assessment and Plan (Free Text) Assessment: A/P: 42 yo male with PMH of Severe Persistent asthma, COPD, gastritis, pancreatitis, and Eosinophilic colitis Admitted for iatrogenic Pneumothorax. Right Lung Pneumothorax s/p chest tube placement day#3, s/p lung biopsy 04/09/18 ; pending results - Thoracic Surgery Consulted, Dr. Yo, recommendations appreciated - Chest tube was repositioned by surgery yesterday, S/P CXR; no visible pneumothorax - Pain management: Oxycodone (Changed from Morphine due to hypotension) and Gabapentin 300 TID - Monitor pleura-vac output, vital signs and respiratory status - Follow up daily CXR Hospital acquired pneumonia - CXR 04/15/18 at 17:56: Left lobe infiltrate - Consult ID, Dr. Swain, will follow recommendations - C/w Vanco Q12H and Zosyn Q6H day 1 (Will get Vanc Trough before 4th dose) - Will follow up with ID - Follow up Ucx and blood Cx History of Severe Persistent asthma and COPD - Patient is wheezing R>L - C/w home medications: Duoneb Q4, Fluticasone/salmeterol BID, Albuterol inh PRN - Pulmonary consult, Dr. Esposito, will follow recommendations - Continue with Prednisone 40mg PO daily Eosinophilic collitis - Patients pain is well controlled since superior hypogastric plexus block - Patient to follow up with Rheumatology, Dr. Brown as outpatient - Consult GI, Dr. Heart, recommendations appreciated (Spoke with GI: cleared for Prednisone 40mg PO daily) - Continue PPI, Pepcid, Amitriptyline and budesonide. History of systolic disfunction with reduced EF - Asymptomatic - Echo 12/15/17: EF 35-40% DVT prophylaxis - SCDs - Lovenox 40 SC daily
--- NOTE | 2018-04-16 08:10 | CP.PCM.PN ---
Subjective - Date & Time of Evaluation Date of Evaluation: 04/16/18 Time of Evaluation: 08:00 - Subjective Subjective: 42 yo admitted for right PTX, s/p chest tube placement. He denies significant chest wall pain after adjustment of chest tube. Denies abdominal pain after discharge earlier this week. Continues to complain of right leg pain. Objective - Vital Signs/Intake and Output Vital Signs (last 24 hours): Temp Pulse Resp BP Pulse Ox 98.5 F 96 H 23 103/63 97 04/15/18 21:00 04/16/18 05:00 04/16/18 05:00 04/16/18 05:00 04/16/18 05:00 Intake and Output: 04/16/18 04/16/18 06:59 18:59 Intake Total 6350 Output Total 2300 Balance 4050 - Medications Medications: Current Medications Acetaminophen (Tylenol 325mg Tab) 650 mg PO Q4 PRN PRN Reason: Pain, Mild (1-3) Albuterol (Ventolin Hfa 90 Mcg/Actuation (8 G)) 2 puff IH Q6 PRN PRN Reason: Shortness of Breath Last Admin: 04/16/18 02:23 Dose: 2 puff Amitriptyline HCl (Elavil) 10 mg PO HS [facility] Last Admin: 04/15/18 21:03 Dose: 10 mg Docusate Sodium (Colace) 100 mg PO DAILY [facility] Last Admin: 04/15/18 22:27 Dose: 100 mg Enoxaparin Sodium (Lovenox) 40 mg SC DAILY [facility] PRN Reason: Protocol Last Admin: 04/15/18 12:05 Dose: Not Given Famotidine (Pepcid) 20 mg PO HS [facility] Last Admin: 04/15/18 21:03 Dose: 20 mg Gabapentin (Neurontin) 300 mg PO TID [facility] Last Admin: 04/15/18 18:18 Dose: Not Given Home Med (Budesonide [Entocort Ec]) 9 mg PO DAILY [facility] Last Admin: 04/15/18 08:49 Dose: 9 mg Vancomycin HCl 1 gm/ Sodium (Chloride) 250 mls @ 166.667 mls/hr IVPB Q12 [facility] PRN Reason: Protocol Last Admin: 04/15/18 21:05 Dose: 166.667 mls/hr Piperacillin Sod/Tazobactam (Sod 3.375 gm/ Sodium Chloride) 100 mls @ 100 mls/ hr IVPB Q6 [facility] PRN Reason: Protocol Last Admin: 04/16/18 04:03 Dose: 100 mls/hr Sodium Chloride (Sodium Chloride 0.9%) 1,000 mls @ 999 mls/hr IV .Q1H1M [facility] Stop: 04/16/18 21:56 Sodium Chloride (Sodium Chloride 0.9%) 1,000 mls @ 150 mls/hr IV .Q6H40M [facility] Stop: 04/17/18 00:01 Last Admin: 04/16/18 01:45 Dose: 150 mls/hr Sodium Chloride (Sodium Chloride 0.9%) 1,000 mls @ 999 mls/hr IV .Q1H1M [facility] Stop: 04/17/18 00:33 Last Admin: 04/16/18 00:45 Dose: 999 mls/hr Levalbuterol HCl (Xopenex) 1.25 mg INH RQ4 [facility] Last Admin: 04/16/18 08:05 Dose: 1.25 mg Montelukast Sodium (Singulair) 10 mg PO HS [facility] Last Admin: 04/15/18 21:02 Dose: 10 mg Oxycodone/Acetaminophen (Percocet 5/325 Mg Tab) 2 tab PO Q6 PRN PRN Reason: Pain, severe (8-10) Stop: 04/18/18 15:25 Oxycodone/Acetaminophen (Percocet 5/325 Mg Tab) 1 tab PO Q4 PRN PRN Reason: Pain, moderate (4-7) Stop: 04/18/18 15:28 Last Admin: 04/15/18 21:02 Dose: 1 tab Fluticasone/Salmeterol (Advair Diskus 500/50) 1 puff INH Q12 [facility] Last Admin: 04/15/18 21:03 Dose: 1 puff - Labs Labs: 04/16/18 04:25 04/16/18 04:25 PT 12.4 Seconds (9.8-13.1) 04/13/18 23:00 INR 1.1 04/13/18 23:00 APTT 35.3 Seconds (25.6-37.1) 04/13/18 23:00 - Respiratory Exam Respiratory Exam: Chest Wall Tenderness Assessment and Plan - Assessment and Plan (Free Text) Assessment: 42 yo man w/ eosinophilic colitis, right PTX, s/p chest tube placement. Pain is well controlled on Percocet. - no acute pain management issues - continue current regimen - consider lumbar MRI to assess radicular right leg pain, can be done as outpatient
--- NOTE | 2018-04-16 08:13 | RAD ---
Date of service: 04/16/2018 HISTORY: chest tube COMPARISON: Portable chest 04/15/2018. FINDINGS: Right chest tube unchanged in position. No visible pneumothorax appreciated. LUNGS: Limited atelectasis favored over infiltrate at the left base with none otherwise bilaterally apparent. PLEURA: No significant pleural effusion identified, no pneumothorax apparent. CARDIOVASCULAR: Normal. OSSEOUS STRUCTURES: No significant abnormalities. VISUALIZED UPPER ABDOMEN: Normal. OTHER FINDINGS: Mild reduction in right chest wall emphysematous changes. IMPRESSION: Right chest tube unchanged in position. No visible pneumothorax appreciable. Limited atelectasis favored over infiltrate medial left base, stable. Limited reduction in right chest wall emphysematous change.
--- NOTE | 2018-04-16 08:52 | CP.PCM.CON ---
History of Present Illness - History of Present Illness History of Present Illness: Infectious Disease Consultation Note- asked to see this francisco at the request of Family practice team for fever and leukocytosis. HPI- Patient known to me from one of his last admissions for abd . pain . Francisco is a 42 year old amle with extensive medical history including Vitiligo , ASthma, COPD, gastritis, pancreatitis, ? churg- staruss disease , esoinophilic colitis who was admitted with sob not relieved by nebs. Francisco had recent lung bx done on 04/09/2018 and was seen at his PCP clinic and c/o sob and not responding to nebs was brought to ED and was found to have Pneumothorax and hence had Chest tube placed on the right side and pt. states he immediately felt better after chest tube was placed. On previous admission patient was worked up for intractable abdominal pain secondary to his eosinophilic colitis. Hypogastirc plexus block was preformed by pain management which provided significant relief to the patient. - On 04/08/18 CT showed multiple areas of patch opacity right lower lobe. Largest 3 cm mass which was selected for lung biopsy. Patient tolerated procedure well at that time and had minor discomfort. I'm asked to evaluate the patient because he developed fever and leukocytosis overnight. Patient currently is in ICU sitting comfortably in bed and he states he feels well now. He denies any sob, denies any fever now but had it last night, states ahs thick cough with brownish -green thick phlegm, denies any abd. pain now, denies any nausea and states his appetite is great today adn that he has been eating all meals. denies any dysurea or diarrhea. 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 Cardic cath november 2017 at [facility], Hypogastric plexus block SH: Drink socially , occasional marajuana, denies smoking FH: Father history of asthma and hypercholesterolemia. Mother history of trigeminal neuralgia Review of Systems - Review of Systems Review of Systems: ROS- denies any TEJEDA, denies any fevre or chills now but had it last night, + thick cough with green/brown phlegm, had sob but states has resolved post chest tube, denies any chest pain, denies any abd. pain. denies any dysurea, denies any diarrhea Past Patient History - Infectious Disease Hx of Infectious Diseases: None - Past Medical History & Family History Past Medical History?: Yes - Past Social History Smoking Status: Never Smoked Home Situation {Lives}: With Family - CARDIAC Hx Congestive Heart Failure: Yes - PULMONARY Hx Asthma: Yes Hx Chronic Obstructive Pulmonary Disease (COPD): Yes Hx Pneumonia: Yes - NEUROLOGICAL Hx Neurological Disorder: No - HEENT Hx HEENT Problems: No - RENAL Hx Chronic Kidney Disease: No - ENDOCRINE/METABOLIC Hx Endocrine Disorders: No - HEMATOLOGICAL/ONCOLOGICAL Hx Blood Disorders: No - INTEGUMENTARY Hx Dermatological Problems: No - MUSCULOSKELETAL/RHEUMATOLOGICAL Hx Falls: No - GASTROINTESTINAL Hx Diverticulitis: Yes Hx Gastritis: Yes Hx Pancreatitis: Yes - GENITOURINARY/GYNECOLOGICAL Hx Genitourinary Disorders: No - PSYCHIATRIC Hx Substance Use: No - SURGICAL HISTORY Hx Surgeries: Yes Other/Comment: I&D LEG ABSCESS - ANESTHESIA Hx Anesthesia: Yes Hx Anesthesia Reactions: No Hx Malignant Hyperthermia: No Meds Allergies/Adverse Reactions: Allergies Allergy/AdvReac Type Severity Reaction Status Date / Time wheat Allergy PAIN Verified 04/07/18 10:57 - Medications Medications: Current Medications Acetaminophen (Tylenol 325mg Tab) 650 mg PO Q4 PRN PRN Reason: Pain, Mild (1-3) Albuterol (Ventolin Hfa 90 Mcg/Actuation (8 G)) 2 puff IH Q6 PRN PRN Reason: Shortness of Breath Last Admin: 04/16/18 02:23 Dose: 2 puff Amitriptyline HCl (Elavil) 10 mg PO HS [facility] Last Admin: 04/15/18 21:03 Dose: 10 mg Docusate Sodium (Colace) 100 mg PO DAILY [facility] Last Admin: 04/15/18 22:27 Dose: 100 mg Enoxaparin Sodium (Lovenox) 40 mg SC DAILY [facility] PRN Reason: Protocol Last Admin: 04/15/18 12:05 Dose: Not Given Famotidine (Pepcid) 20 mg PO HS [facility] Last Admin: 04/15/18 21:03 Dose: 20 mg Gabapentin (Neurontin) 300 mg PO TID [facility] Last Admin: 04/15/18 18:18 Dose: Not Given Home Med (Budesonide [Entocort Ec]) 9 mg PO DAILY [facility] Last Admin: 04/15/18 08:49 Dose: 9 mg Vancomycin HCl 1 gm/ Sodium (Chloride) 250 mls @ 166.667 mls/hr IVPB Q12 DARIEL PRN Reason: Protocol Last Admin: 04/15/18 21:05 Dose: 166.667 mls/hr Piperacillin Sod/Tazobactam (Sod 3.375 gm/ Sodium Chloride) 100 mls @ 100 mls/ hr IVPB Q6 DARIEL PRN Reason: Protocol Last Admin: 04/16/18 04:03 Dose: 100 mls/hr Sodium Chloride (Sodium Chloride 0.9%) 1,000 mls @ 999 mls/hr IV .Q1H1M [facility] Stop: 04/16/18 21:56 Sodium Chloride (Sodium Chloride 0.9%) 1,000 mls @ 150 mls/hr IV .Q6H40M [facility] Stop: 04/17/18 00:01 Last Admin: 04/16/18 01:45 Dose: 150 mls/hr Sodium Chloride (Sodium Chloride 0.9%) 1,000 mls @ 999 mls/hr IV .Q1H1M [facility] Stop: 04/17/18 00:33 Last Admin: 04/16/18 00:45 Dose: 999 mls/hr Levalbuterol HCl (Xopenex) 1.25 mg INH RQ4 [facility] Last Admin: 04/16/18 08:05 Dose: 1.25 mg Montelukast Sodium (Singulair) 10 mg PO HS [facility] Last Admin: 04/15/18 21:02 Dose: 10 mg Oxycodone/Acetaminophen (Percocet 5/325 Mg Tab) 2 tab PO Q6 PRN PRN Reason: Pain, severe (8-10) Stop: 04/18/18 15:25 Oxycodone/Acetaminophen (Percocet 5/325 Mg Tab) 1 tab PO Q4 PRN PRN Reason: Pain, moderate (4-7) Stop: 04/18/18 15:28 Last Admin: 04/15/18 21:02 Dose: 1 tab Fluticasone/Salmeterol (Advair Diskus 500/50) 1 puff INH Q12 [facility] Last Admin: 04/15/18 21:03 Dose: 1 puff Physical Exam - Constitutional Appears: Non-toxic, No Acute Distress - Head Exam Head Exam: ATRAUMATIC - Eye Exam Eye Exam: EOMI, PERRL - ENT Exam ENT Exam: Normal Oropharynx - Neck Exam Neck exam: Positive for: Full Rom - Respiratory Exam Respiratory Exam: NORMAL BREATHING PATTERN Additional comments: has right chest tube in place No wheezing good breath sounds heard b/l - Cardiovascular Exam Cardiovascular Exam: RRR, +S1, +S2 - GI/Abdominal Exam GI & Abdominal Exam: Normal Bowel Sounds, Soft Additional comments: NT, ND - Extremities Exam Additional comments: no edema B/l Le - Neurological Exam Neurological exam: Alert, Oriented x3 Results - Vital Signs Recent Vital Signs: Last Vital Signs Temp 97.7 F 04/16/18 08:20 Pulse 97 H 04/16/18 08:20 Resp 24 04/16/18 08:20 BP 98/69 L 04/16/18 08:20 Pulse Ox 99 04/16/18 08:20 - Labs Result Diagrams: 04/16/18 04:25 04/16/18 04:25 Labs: Laboratory Results - last 24 hr 04/15/18 04/15/18 04/15/18 18:43 18:55 19:35 WBC 18.4 H RBC 4.05 L Hgb 11.4 L Hct 35.5 MCV 87.7 MCH 28.1 MCHC 32.1 L RDW 15.5 H Plt Count 257 MPV 8.4 Neut % (Auto) 85.7 H Lymph % (Auto) 7.4 L [place] % (Auto) 6.3 Eos % (Auto) 0.5 Baso % (Auto) 0.1 Neut # (Auto) 15.8 H Lymph # (Auto) 1.4 [place] # (Auto) 1.2 H Eos # (Auto) 0.1 Baso # (Auto) 0.0 Neutrophils % (Manual) 79 H Band Neutrophils % 8 H Lymphocytes % (Manual) 5 L Monocytes % (Manual) 8 Platelet Estimate Normal Large Platelets Present Hypochromasia (manual) Slight Anisocytosis (manual) Moderate pCO2 33 L pO2 139 H HCO3 25.7 ABG pH 7.47 H ABG Total CO2 25.0 ABG O2 Saturation 99.7 H ABG Base Excess 0.9 Stewart Test Yes ABG Potassium 3.2 L A-a O2 Difference 34.0 Sodium 136.0 139 Chloride 105.0 105 Glucose 113 H Lactate 2.4 H Vent Mode High flow lpm FiO2 30.0 Potassium 3.3 L Carbon Dioxide 24 Anion Gap 13 BUN 19 Creatinine 0.8 Est GFR ( Amer) > 60 Est GFR (Non-Af Amer) > 60 Random Glucose 107 Lactic Acid Calcium 8.3 L Total Bilirubin AST ALT Alkaline Phosphatase Total Protein Albumin Globulin Albumin/Globulin Ratio Arterial Blood Potassium 3.2 L Urine Color Urine Clarity Urine pH Ur Specific [place] Urine Protein Urine Glucose (UA) Urine Ketones Urine Blood Urine Nitrate Urine Bilirubin Urine Urobilinogen Ur Leukocyte Esterase Urine RBC (Auto) Urine Microscopic WBC 04/15/18 04/16/18 04/16/18 19:45 04:25 04:25 WBC 24.0 H RBC 3.75 L Hgb 10.6 L Hct 33.5 L MCV 89.2 MCH 28.3 MCHC 31.8 L RDW 15.7 H Plt Count 235 MPV 8.5 Neut % (Auto) 94.1 H Lymph % (Auto) 3.4 L [place] % (Auto) 2.5 Eos % (Auto) 0.0 Baso % (Auto) 0.0 Neut # (Auto) 22.6 H Lymph # (Auto) 0.8 L [place] # (Auto) 0.6 Eos # (Auto) 0.0 Baso # (Auto) 0.0 Neutrophils % (Manual) Band Neutrophils % Lymphocytes % (Manual) Monocytes % (Manual) Platelet Estimate Large Platelets Hypochromasia (manual) Anisocytosis (manual) pCO2 pO2 HCO3 ABG pH ABG Total CO2 ABG O2 Saturation ABG Base Excess Stewart Test ABG Potassium A-a O2 Difference Sodium 141 Chloride 111 H Glucose Lactate Vent Mode FiO2 Potassium 4.1 Carbon Dioxide 21 L Anion Gap 13 BUN 16 Creatinine 0.8 Est GFR ( Amer) > 60 Est GFR (Non-Af Amer) > 60 Random Glucose 153 H Lactic Acid Calcium 7.9 L Total Bilirubin 0.3 AST 41 ALT 77 H D Alkaline Phosphatase 103 Total Protein 5.8 L Albumin 2.7 L Globulin 3.2 Albumin/Globulin Ratio 0.8 L Arterial Blood Potassium Urine Color Yellow Urine Clarity Clear Urine pH 5.0 Ur Specific [place] 1.012 Urine Protein Negative Urine Glucose (UA) Neg Urine Ketones Negative Urine Blood Negative Urine Nitrate Negative Urine Bilirubin Negative Urine Urobilinogen 0.2-1.0 Ur Leukocyte Esterase Neg Urine RBC (Auto) 1 Urine Microscopic WBC < 1 04/16/18 04:25 WBC RBC Hgb Hct MCV MCH MCHC RDW Plt Count MPV Neut % (Auto) Lymph % (Auto) [place] % (Auto) Eos % (Auto) Baso % (Auto) Neut # (Auto) Lymph # (Auto) [place] # (Auto) Eos # (Auto) Baso # (Auto) Neutrophils % (Manual) Band Neutrophils % Lymphocytes % (Manual) Monocytes % (Manual) Platelet Estimate Large Platelets Hypochromasia (manual) Anisocytosis (manual) pCO2 pO2 HCO3 ABG pH ABG Total CO2 ABG O2 Saturation ABG Base Excess Stewart Test ABG Potassium A-a O2 Difference Sodium Chloride Glucose Lactate Vent Mode FiO2 Potassium Carbon Dioxide Anion Gap BUN Creatinine Est GFR ( Amer) Est GFR (Non-Af Amer) Random Glucose Lactic Acid 2.7 H Calcium Total Bilirubin AST ALT Alkaline Phosphatase Total Protein Albumin Globulin Albumin/Globulin Ratio Arterial Blood Potassium Urine Color Urine Clarity Urine pH Ur Specific [place] Urine Protein Urine Glucose (UA) Urine Ketones Urine Blood Urine Nitrate Urine Bilirubin Urine Urobilinogen Ur Leukocyte Esterase Urine RBC (Auto) Urine Microscopic WBC Laboratory Results - last 72 hr 04/13/18 04/13/18 04/13/18 20:21 20:31 21:21 WBC 10.5 RBC 4.84 Hgb 14.1 Hct 42.6 MCV 88.0 MCH 29.1 MCHC 33.0 RDW 15.3 H Plt Count 318 MPV 8.3 Neut % (Auto) 57.3 Lymph % (Auto) 20.0 [place] % (Auto) 15.2 H Eos % (Auto) 6.9 H Baso % (Auto) 0.6 Neut # (Auto) 6.0 Lymph # (Auto) 2.1 [place] # (Auto) 1.6 H Eos # (Auto) 0.7 Baso # (Auto) 0.1 Neutrophils % (Manual) Band Neutrophils % Lymphocytes % (Manual) Monocytes % (Manual) Platelet Estimate Large Platelets Hypochromasia (manual) Anisocytosis (manual) Macrocytosis (manual) Tear Drop Cells Ovalocytes PT INR APTT pCO2 pO2 28 L HCO3 ABG pH ABG Total CO2 ABG O2 Saturation ABG Base Excess Stewart Test ABG Potassium VBG pH 7.36 VBG pCO2 54 VBG HCO3 26.5 VBG Total CO2 32.2 H VBG O2 Sat (Calc) 30.8 L VBG Base Excess 3.7 H VBG Potassium 3.8 A-a O2 Difference Sodium 141.0 145 Chloride 103.0 105 Glucose 96 Lactate 1.8 Vent Mode FiO2 21.0 Potassium 4.4 Carbon Dioxide 28 Anion Gap 16 BUN 27 H Creatinine 1.1 Est GFR ( Amer) > 60 Est GFR (Non-Af Amer) > 60 Random Glucose 98 Lactic Acid Calcium 9.0 Total Bilirubin AST ALT Alkaline Phosphatase Total Protein Albumin Globulin Albumin/Globulin Ratio Arterial Blood Potassium Venous Blood Potassium 3.8 Urine Color Urine Clarity Urine pH Ur Specific [place] Urine Protein Urine Glucose (UA) Urine Ketones Urine Blood Urine Nitrate Urine Bilirubin Urine Urobilinogen Ur Leukocyte Esterase Urine RBC (Auto) Urine Microscopic WBC Blood Type Blood Type Confirm Antibody Screen BBK History Checked 04/13/18 04/13/18 04/13/18 23:00 23:00 23:10 WBC RBC Hgb Hct MCV MCH MCHC RDW Plt Count MPV Neut % (Auto) Lymph % (Auto) [place] % (Auto) Eos % (Auto) Baso % (Auto) Neut # (Auto) Lymph # (Auto) [place] # (Auto) Eos # (Auto) Baso # (Auto) Neutrophils % (Manual) Band Neutrophils % Lymphocytes % (Manual) Monocytes % (Manual) Platelet Estimate Large Platelets Hypochromasia (manual) Anisocytosis (manual) Macrocytosis (manual) Tear Drop Cells Ovalocytes PT 12.4 INR 1.1 APTT 35.3 pCO2 pO2 HCO3 ABG pH ABG Total CO2 ABG O2 Saturation ABG Base Excess Stewart Test ABG Potassium VBG pH VBG pCO2 VBG HCO3 VBG Total CO2 VBG O2 Sat (Calc) VBG Base Excess VBG Potassium A-a O2 Difference Sodium Chloride Glucose Lactate Vent Mode FiO2 Potassium Carbon Dioxide Anion Gap BUN Creatinine Est GFR ( Amer) Est GFR (Non-Af Amer) Random Glucose Lactic Acid Calcium Total Bilirubin AST ALT Alkaline Phosphatase Total Protein Albumin Globulin Albumin/Globulin Ratio Arterial Blood Potassium Venous Blood Potassium Urine Color Urine Clarity Urine pH Ur Specific [place] Urine Protein Urine Glucose (UA) Urine Ketones Urine Blood Urine Nitrate Urine Bilirubin Urine Urobilinogen Ur Leukocyte Esterase Urine RBC (Auto) Urine Microscopic WBC Blood Type O POSITIVE Blood Type Confirm O POSITIVE Antibody Screen Negative BBK History Checked No verified bt 04/15/18 04/15/18 04/15/18 04:35 18:43 18:55 WBC 13.6 H RBC 3.92 L Hgb 11.3 L D Hct 34.5 L MCV 88.1 MCH 28.8 MCHC 32.7 L RDW 15.1 H Plt Count 256 MPV 8.4 Neut % (Auto) 78.1 H Lymph % (Auto) 12.0 L [place] % (Auto) 9.9 Eos % (Auto) 0.0 Baso % (Auto) 0.0 Neut # (Auto) 10.6 H Lymph # (Auto) 1.6 [place] # (Auto) 1.3 H Eos # (Auto) 0.0 Baso # (Auto) 0.0 Neutrophils % (Manual) Band Neutrophils % Lymphocytes % (Manual) Monocytes % (Manual) Platelet Estimate Large Platelets Hypochromasia (manual) Anisocytosis (manual) Macrocytosis (manual) Tear Drop Cells Ovalocytes PT INR APTT pCO2 33 L pO2 139 H HCO3 25.7 ABG pH 7.47 H ABG Total CO2 25.0 ABG O2 Saturation 99.7 H ABG Base Excess 0.9 Stewart Test Yes ABG Potassium 3.2 L VBG pH VBG pCO2 VBG HCO3 VBG Total CO2 VBG O2 Sat (Calc) VBG Base Excess VBG Potassium A-a O2 Difference 34.0 Sodium 136.0 139 Chloride 105.0 105 Glucose 113 H Lactate 2.4 H Vent Mode High flow lpm FiO2 30.0 Potassium 3.3 L Carbon Dioxide 24 Anion Gap 13 BUN 19 Creatinine 0.8 Est GFR ( Amer) > 60 Est GFR (Non-Af Amer) > 60 Random Glucose 107 Lactic Acid Calcium 8.3 L Total Bilirubin AST ALT Alkaline Phosphatase Total Protein Albumin Globulin Albumin/Globulin Ratio Arterial Blood Potassium 3.2 L Venous Blood Potassium Urine Color Urine Clarity Urine pH Ur Specific [place] Urine Protein Urine Glucose (UA) Urine Ketones Urine Blood Urine Nitrate Urine Bilirubin Urine Urobilinogen Ur Leukocyte Esterase Urine RBC (Auto) Urine Microscopic WBC Blood Type Blood Type Confirm Antibody Screen BBK History Checked 04/15/18 04/15/18 04/16/18 19:35 19:45 04:25 WBC 18.4 H 24.0 H RBC 4.05 L 3.75 L Hgb 11.4 L 10.6 L Hct 35.5 33.5 L MCV 87.7 89.2 MCH 28.1 28.3 MCHC 32.1 L 31.8 L RDW 15.5 H 15.7 H Plt Count 257 235 MPV 8.4 8.5 Neut % (Auto) 85.7 H 94.1 H Lymph % (Auto) 7.4 L 3.4 L [place] % (Auto) 6.3 2.5 Eos % (Auto) 0.5 0.0 Baso % (Auto) 0.1 0.0 Neut # (Auto) 15.8 H 22.6 H Lymph # (Auto) 1.4 0.8 L [place] # (Auto) 1.2 H 0.6 Eos # (Auto) 0.1 0.0 Baso # (Auto) 0.0 0.0 Neutrophils % (Manual) 79 H 92 H Band Neutrophils % 8 H Lymphocytes % (Manual) 5 L 6 L Monocytes % (Manual) 8 2 Platelet Estimate Normal Normal Large Platelets Present Present Hypochromasia (manual) Slight Anisocytosis (manual) Moderate Slight Macrocytosis (manual) Slight Tear Drop Cells Slight Ovalocytes Slight PT INR APTT pCO2 pO2 HCO3 ABG pH ABG Total CO2 ABG O2 Saturation ABG Base Excess Stewart Test ABG Potassium VBG pH VBG pCO2 VBG HCO3 VBG Total CO2 VBG O2 Sat (Calc) VBG Base Excess VBG Potassium A-a O2 Difference Sodium Chloride Glucose Lactate Vent Mode FiO2 Potassium Carbon Dioxide Anion Gap BUN Creatinine Est GFR ( Amer) Est GFR (Non-Af Amer) Random Glucose Lactic Acid Calcium Total Bilirubin AST ALT Alkaline Phosphatase Total Protein Albumin Globulin Albumin/Globulin Ratio Arterial Blood Potassium Venous Blood Potassium Urine Color Yellow Urine Clarity Clear Urine pH 5.0 Ur Specific [place] 1.012 Urine Protein Negative Urine Glucose (UA) Neg Urine Ketones Negative Urine Blood Negative Urine Nitrate Negative Urine Bilirubin Negative Urine Urobilinogen 0.2-1.0 Ur Leukocyte Esterase Neg Urine RBC (Auto) 1 Urine Microscopic WBC < 1 Blood Type Blood Type Confirm Antibody Screen BBK History Checked 04/16/18 04/16/18 04:25 04:25 WBC RBC Hgb Hct MCV MCH MCHC RDW Plt Count MPV Neut % (Auto) Lymph % (Auto) [place] % (Auto) Eos % (Auto) Baso % (Auto) Neut # (Auto) Lymph # (Auto) [place] # (Auto) Eos # (Auto) Baso # (Auto) Neutrophils % (Manual) Band Neutrophils % Lymphocytes % (Manual) Monocytes % (Manual) Platelet Estimate Large Platelets Hypochromasia (manual) Anisocytosis (manual) Macrocytosis (manual) Tear Drop Cells Ovalocytes PT INR APTT pCO2 pO2 HCO3 ABG pH ABG Total CO2 ABG O2 Saturation ABG Base Excess Stewart Test ABG Potassium VBG pH VBG pCO2 VBG HCO3 VBG Total CO2 VBG O2 Sat (Calc) VBG Base Excess VBG Potassium A-a O2 Difference Sodium 141 Chloride 111 H Glucose Lactate Vent Mode FiO2 Potassium 4.1 Carbon Dioxide 21 L Anion Gap 13 BUN 16 Creatinine 0.8 Est GFR ( Amer) > 60 Est GFR (Non-Af Amer) > 60 Random Glucose 153 H Lactic Acid 2.7 H Calcium 7.9 L Total Bilirubin 0.3 AST 41 ALT 77 H D Alkaline Phosphatase 103 Total Protein 5.8 L Albumin 2.7 L Globulin 3.2 Albumin/Globulin Ratio 0.8 L Arterial Blood Potassium Venous Blood Potassium Urine Color Urine Clarity Urine pH Ur Specific [place] Urine Protein Urine Glucose (UA) Urine Ketones Urine Blood Urine Nitrate Urine Bilirubin Urine Urobilinogen Ur Leukocyte Esterase Urine RBC (Auto) Urine Microscopic WBC Blood Type Blood Type Confirm Antibody Screen BBK History Checked Microbiology 04/15/18 19:45 Sputum Gram Stain - Final 04/10/18 11:40 Stool Stool Culture - Final NO SALMONELLA, SHIGELLA OR CAMPYLOBACTER ISOLATED. 04/10/18 11:40 Stool Ova and Parasite Concentrate Exam - Final 03/14/18 01:00 Blood Blood Culture - Final 03/14/18 01:00 Blood Gram Stain - Final NO GROWTH AFTER 5 DAYS TEST NOT PERFORMED 03/14/18 00:01 Blood Blood Culture - Final 03/14/18 00:01 Blood Gram Stain - Final NO GROWTH AFTER 5 DAYS TEST NOT PERFORMED 03/13/18 10:40 Stool Stool Culture - Final NO SALMONELLA, SHIGELLA OR CAMPYLOBACTER ISOLATED. 03/11/18 20:55 Blood-Venous Blood Culture - Final 03/11/18 20:55 Blood-Venous Gram Stain - Final NO GROWTH AFTER 5 DAYS TEST NOT PERFORMED 03/11/18 20:47 Blood-Venous Blood Culture - Final 03/11/18 20:47 Blood-Venous Gram Stain - Final NO GROWTH AFTER 5 DAYS TEST NOT PERFORMED 04/15/18 19:45 Sputum Sputum Culture - Preliminary Gram Negative [facility] Accession No. : [id number] Patient Name / ID : ANTHONY Knight / [id number] Exam Date : 04/16/2018 05:41:18 ( Approved ) Study Comment : Sex / Age : M / 42Y Creator : Wilfred Arteaga MD Dictator : Wilfred Arteaga MD Cripple Cutter : Sueding Machine Operator : Wilfred Arteaga MD Approver2 : Report Date : 04/16/2018 08:06:51 My Comment : Date of service: 04/16/2018 HISTORY: chest tube COMPARISON: Portable chest 04/15/2018. FINDINGS: Right chest tube unchanged in position. No visible pneumothorax appreciated. LUNGS: Limited atelectasis favored over infiltrate at the left base with none otherwise bilaterally apparent. PLEURA: No significant pleural effusion identified, no pneumothorax apparent. CARDIOVASCULAR: Normal. OSSEOUS STRUCTURES: No significant abnormalities. VISUALIZED UPPER ABDOMEN: Normal. OTHER FINDINGS: Mild reduction in right chest wall emphysematous changes. IMPRESSION: Right chest tube unchanged in position. No visible pneumothorax appreciable. Limited atelectasis favored over infiltrate medial left base, stable. Limited reduction in right chest wall emphysematous change. Accession No. : [id number] Patient Name / ID : ANTHONY Knight / [id number] Exam Date : 04/14/2018 16:58:52 ( Approved ) Study Comment : Sex / Age : M / 42Y Creator : Eduardo Duenas MD Dictator : Cripple Cutter : Sueding Machine Operator : Eduardo Duenas MD Approver2 : Report Date : 04/14/2018 17:37:44 My Comment : Date of service: 04/14/2018 PROCEDURE: CT Chest without contrast HISTORY: R chest tube; Pneumothorax COMPARISON: Correlation made with CT-guided biopsy 10/27/2017. Comparison made with prior CTA chest dated 02/09 18. . Comparison also made with chest radiograph obtained earlier same day. TECHNIQUE: Contiguous axial images were obtained through the chest without intravenous contrast enhancement. Sagittal and coronal reconstructions were performed. Radiation dose (DLP): 259.35 mGy-cm. This CT exam was performed using one or more of the following dose reduction techniques: Automated exposure control, adjustment of the mA and/or kV according to patient size, and/or use of iterative reconstruction technique. FINDINGS: LUNGS: In situ right-sided chest tube. Re- demonstrated are multiple nodular opacities seen scattered throughout the right lower lobe the largest in the measuring approximately 2.2 x 2.0 cm. In addition, there is a elliptical shaped somewhat confluent opacity. Confluent opacities are also seen in the left lung apex with scattered areas of atelectasis and or scarring left upper lobe. Small elliptical shaped nodular opacity also present in the medial aspect left upper lobe bordering the posteromedial pleural surface. Re- demonstrated is a moderate amount of subcutaneous emphysema overlying the right anterior chest wall which extends superiorly into the right base of neck and soft tissues of the right shoulder/ upper extremity. MEDIASTINUM: Unremarkable thoracic aorta. No aneurysm. Normal sized heart. No significant pericardial effusion Main pulmonary artery unremarkable. No vascular congestion. Few small nonspecific mediastinal lymph nodes are present. Evaluation for hilar adenopathy limited due to the lack of circulating intravenous contrast material. There is a small hiatal hernia with slight wall thickening of the distal esophagus likely due to protrusion gastric mucosa. Possibility of esophagitis not excluded. Central airways are midline and patent. No large central endoluminal lesions. PLEURA: Small residual right apical and basilar next pneumothorax. BONES: Minor multilevel degenerative spondylosis of the thoracic spine. Osseous structures appear grossly intact. UPPER ABDOMEN: Upper abdominal structures unremarkable. OTHER FINDINGS: None. IMPRESSION: In situ right-sided chest tube. There is a small residual right apical and basilar pneumothorax. Multiple scattered varying sized nodular opacities the bulk of which are located in the mid right lower lobe largest measuring approximately 2.2 x 2.1 cm. There also areas of atelectasis and or scarring changes in the left upper lobe middle lobe and lingular regions. Assessment & Plan (1) Pneumothorax Status: Acute (2) COPD (chronic obstructive pulmonary disease) Status: Acute (3) Eosinophilic colitis Status: Acute - Assessment and Plan (Free Text) Assessment: A/P- 42 year old male with extensive medical history including multiple bouts of abdominal pian, pancreatitis, colitis, gastritis, pulmonary nodules, copd has had extensive work up done and was diagnosed with eosinophilic colitis via colonoscopy . recent lung biopsy for further eval of the pulm nodules and developed PTC post that is now in ICU with right sided chest tube. febrile last night and significant increase in wbc, however, he also had received IV steroid dose as well. pt. states he feels much better today and is eating well. He states the Budesonide that he has been started on by GI doc has helped him alot and the brachial plexus pain block that he had received a week ago as well. afebrile now but t-max-102 last night Leukocytosis significant but has left shift as well , however had received solumedrol sputum cx- GNR prelim UA- neg PLan- check blood cx x 2. await ID and sens of the GNR sputum cx. advise to place on broad spectrum IV abx for GNR and anaerobes. monitor asp precautions. Chest tube management as per Ct surgeon and PCP and ICU team. will add empiric vanco as well since pt. has had recent invasive procedures . All labs and imaging reviewed. all above d/w patient and he verbalzies full understanding of all above and agrees with above plan of care. Christa pollock also d/w [employer] . Thank you for allowing me to take part in the care of this patient. ICU time 60 minutes.
[2018-04-16 09:42] LABS: ANISOCYTOSIS SLIGHT; LARGE PLATELETS PRESENT; LYMPHOCYTE 6 % (20-50); MONOCYTE 2 % (0-10); NEUTROPHIL 92 % (42-75); OVALOCYTES SLIGHT; PLATELET ESTIMATE NORMAL (NORMAL); TEARDROP CELLS SLIGHT; TOTAL CELLS COUNTED 100
[2018-04-16] MEDS: Fluticasone-Salmeterol 500-50mcg Diskus INH SCH ×2 (10:20→20:01)
[2018-04-16] MEDS: Enoxaparin 40 mg Syringe SC SCH (10:23)
[2018-04-16] MEDS: Oxycodone/Acetaminophen 5/325 mg Tab PO PRN ×2 (10:33→20:44)
[2018-04-16] MEDS: BUDESONIDE 3 MG PO SCH (10:45)
[2018-04-16] MEDS: Meropenem 1 GM in Sodium Chloride 0.9% 100 ML IVPB SCH (18:51)
[2018-04-17] MEDS: Meropenem 1 GM in Sodium Chloride 0.9% 100 ML IVPB SCH ×3 (00:13→16:56)
[2018-04-17] MEDS: Levalbuterol 1.25 MG/3 ML Inhal Soln UD INH SCH ×7 (00:58→19:26)
[2018-04-17] MEDS: Sodium Chloride 0.9% 1,000 ML IV SCH ×3 (03:22→23:34)
[2018-04-17 06:43] LABS: BASO % 0.1 % (0.0-2.0); HEMOGLOBIN 10.5 g/dL (12.0-18.0); LYMPH # 1.3 K/uL (1.0-4.3); LYMPH % 8.4 % (20.0-40.0); MEAN CELL VOLUME 87.7 fl (80.0-94.0); MEAN CORPUSCULAR HEMOGLOBIN 28.6 pg (27.0-31.0); MEAN CORPUSCULAR HGB CONC 32.6 g/dL (33.0-37.0); MEAN PLATELET VOLUME 8.4 fl (7.2-11.7); MONO # 0.9 K/uL (0.0-0.8); NEUT # 13.4 K/uL (1.8-7.0); NEUT % 85.5 % (50.0-75.0); RBC 3.68 Mil/uL (4.40-5.90); WHITE BLOOD COUNT 15.6 K/uL (4.8-10.8)
[2018-04-17 06:55] LABS: ALB/GLOB RATIO 0.8 (1.0-2.1); ALBUMIN 2.7 g/dL (3.5-5.0); ALT/SGPT 55 U/L (21-72); AST/SGOT 18 U/L (17-59); BLOOD UREA NITROGEN 16 mg/dl (9-20); CALCIUM 8.3 mg/dL (8.4-10.2); GFR AFRICAN-AMERICAN > 60; GFR NON-AFRICAN AMERICAN > 60
--- NOTE | 2018-04-17 07:40 | CP.PCM.PN ---
Subjective - Date & Time of Evaluation Date of Evaluation: 04/17/18 Time of Evaluation: 07:00 - Subjective Subjective: Thoracic Surgery Dr. Yo Pt S&E @bedside. NAEO. pt reports some tube discomfort w/ movement but no pain. denies F/C, CP, SOB, N/V. tolerating diet. (+)OOB to chair. Objective - Vital Signs/Intake and Output Vital Signs (last 24 hours): Temp Pulse Resp BP Pulse Ox 98.6 F 97 H 16 110/72 96 04/17/18 04:00 04/17/18 05:44 04/17/18 05:44 04/17/18 05:44 04/17/18 05:44 Intake and Output: 04/17/18 04/17/18 06:59 18:59 Intake Total 2300 Output Total 1100 Balance 1200 - Medications Medications: Current Medications Acetaminophen (Tylenol 325mg Tab) 650 mg PO Q4 PRN PRN Reason: Pain, Mild (1-3) Albuterol (Ventolin Hfa 90 Mcg/Actuation (8 G)) 2 puff IH Q6 PRN PRN Reason: Shortness of Breath Last Admin: 04/16/18 02:23 Dose: 2 puff Amitriptyline HCl (Elavil) 10 mg PO HS [facility] Last Admin: 04/16/18 21:10 Dose: 10 mg Docusate Sodium (Colace) 100 mg PO DAILY [facility] Last Admin: 04/16/18 10:23 Dose: 100 mg Enoxaparin Sodium (Lovenox) 40 mg SC DAILY [facility] PRN Reason: Protocol Last Admin: 04/16/18 10:23 Dose: Not Given Famotidine (Pepcid) 20 mg PO HS [facility] Last Admin: 04/16/18 21:11 Dose: 20 mg Gabapentin (Neurontin) 300 mg PO TID [facility] Last Admin: 04/16/18 20:07 Dose: 300 mg Home Med (Budesonide [Entocort Ec]) 9 mg PO DAILY [facility] Last Admin: 04/16/18 10:45 Dose: 9 mg Vancomycin HCl 1 gm/ Sodium (Chloride) 250 mls @ 166.667 mls/hr IVPB Q12 [facility] PRN Reason: Protocol Last Admin: 04/16/18 19:59 Dose: 166.667 mls/hr Meropenem 1 gm/ Sodium (Chloride) 100 mls @ 100 mls/hr IVPB Q8 [facility] PRN Reason: Protocol Last Admin: 04/17/18 00:13 Dose: 100 mls/hr Levalbuterol HCl (Xopenex) 1.25 mg INH RQ4 [facility] Last Admin: 04/17/18 05:40 Dose: 1.25 mg Montelukast Sodium (Singulair) 10 mg PO HS [facility] Last Admin: 04/16/18 21:13 Dose: 10 mg Oxycodone/Acetaminophen (Percocet 5/325 Mg Tab) 2 tab PO Q6 PRN PRN Reason: Pain, severe (8-10) Stop: 04/18/18 15:25 Last Admin: 04/16/18 20:44 Dose: 2 tab Oxycodone/Acetaminophen (Percocet 5/325 Mg Tab) 1 tab PO Q4 PRN PRN Reason: Pain, moderate (4-7) Stop: 04/18/18 15:28 Last Admin: 04/15/18 21:02 Dose: 1 tab Prednisone (Prednisone Tab) 40 mg PO DAILY [facility] Last Admin: 04/16/18 13:48 Dose: 40 mg Fluticasone/Salmeterol (Advair Diskus 500/50) 1 puff INH Q12 [facility] Last Admin: 04/16/18 20:01 Dose: 1 puff - Labs Labs: 04/17/18 05:25 04/17/18 05:25 PT 12.4 Seconds (9.8-13.1) 04/13/18 23:00 INR 1.1 04/13/18 23:00 APTT 35.3 Seconds (25.6-37.1) 04/13/18 23:00 - Constitutional Appears: Non-toxic, No Acute Distress - Head Exam Head Exam: NORMAL INSPECTION - Eye Exam Eye Exam: Normal appearance - ENT Exam ENT Exam: Mucous Membranes Moist - Respiratory Exam Respiratory Exam: NORMAL BREATHING PATTERN. absent: Accessory Muscle Use, Respiratory Distress Additional comments: R CT in place. dressing c/d/i on wall suction. no leak appreciated - Cardiovascular Exam Cardiovascular Exam: REGULAR RHYTHM. absent: Bradycardia, Tachycardia - GI/Abdominal Exam GI & Abdominal Exam: Soft. absent: Distended, Tenderness - Extremities Exam Extremities Exam: Normal Inspection - Neurological Exam Neurological Exam: Alert, Awake, Oriented x3 - Psychiatric Exam Psychiatric exam: Normal Affect, Normal Mood - Skin Skin Exam: Dry, Intact, Warm. absent: Normal Color (vitiligo) Assessment and Plan - Assessment and Plan (Free Text) Assessment: 42 y/o M w/ R-sides pneumothorax 2/2 RLL lung Bx POD#4 s/p bedside R chest tube placement - f/u AM CXR - cont pain management - cont IV Abx - daily labs/CXR - CTC thursday w/ clamp trial to follow - encourage OOB to chair/Amb/IS use Pt discussed w/ Dr. Sanaz Shin DO PGY3
[2018-04-17] MEDS: Oxycodone/Acetaminophen 5/325 mg Tab PO PRN ×4 (07:58→21:31)
[2018-04-17] MEDS: Fluticasone-Salmeterol 500-50mcg Diskus INH SCH ×2 (09:19→21:30)
[2018-04-17] MEDS: BUDESONIDE 3 MG PO SCH (09:19)
--- NOTE | 2018-04-17 09:20 | CP.PCM.PN ---
Subjective - Date & Time of Evaluation Date of Evaluation: 04/17/18 Time of Evaluation: 08:15 - Subjective Subjective: Patient seen and examined this morning at bedside, NAD, having his breakfast. Patient is happy with his pain controlled management, tolerating PO, ambulating , afebrile, denies any chest pain, SOB, dizziness or urinary symptoms. -S/p POD# 4, right Chest tube in place, dressing d/c/i, 10cc serosanguineous output noted in last 24 hours. Objective - Vital Signs/Intake and Output Vital Signs (last 24 hours): Temp Pulse Resp BP Pulse Ox 98.1 F 98 H 20 114/78 98 04/17/18 08:00 04/17/18 08:00 04/17/18 08:00 04/17/18 08:00 04/17/18 08:00 Intake and Output: 04/17/18 04/17/18 06:59 18:59 Intake Total 2300 300 Output Total 1100 300 Balance 1200 0 - Medications Medications: Current Medications Acetaminophen (Tylenol 325mg Tab) 650 mg PO Q4 PRN PRN Reason: Pain, Mild (1-3) Albuterol (Ventolin Hfa 90 Mcg/Actuation (8 G)) 2 puff IH Q6 PRN PRN Reason: Shortness of Breath Last Admin: 04/16/18 02:23 Dose: 2 puff Amitriptyline HCl (Elavil) 10 mg PO HS [facility] Last Admin: 04/16/18 21:10 Dose: 10 mg Docusate Sodium (Colace) 100 mg PO DAILY [facility] Last Admin: 04/16/18 10:23 Dose: 100 mg Enoxaparin Sodium (Lovenox) 40 mg SC DAILY [facility] PRN Reason: Protocol Last Admin: 04/16/18 10:23 Dose: Not Given Famotidine (Pepcid) 20 mg PO HS [facility] Last Admin: 04/16/18 21:11 Dose: 20 mg Gabapentin (Neurontin) 300 mg PO TID [facility] Last Admin: 04/16/18 20:07 Dose: 300 mg Home Med (Budesonide [Entocort Ec]) 9 mg PO DAILY [facility] Last Admin: 04/16/18 10:45 Dose: 9 mg Vancomycin HCl 1 gm/ Sodium (Chloride) 250 mls @ 166.667 mls/hr IVPB Q12 [facility] PRN Reason: Protocol Last Admin: 04/16/18 19:59 Dose: 166.667 mls/hr Meropenem 1 gm/ Sodium (Chloride) 100 mls @ 100 mls/hr IVPB Q8 [facility] PRN Reason: Protocol Last Admin: 04/17/18 08:07 Dose: 100 mls/hr Levalbuterol HCl (Xopenex) 1.25 mg INH RQ4 [facility] Last Admin: 04/17/18 08:03 Dose: 1.25 mg Montelukast Sodium (Singulair) 10 mg PO HS [facility] Last Admin: 04/16/18 21:13 Dose: 10 mg Oxycodone/Acetaminophen (Percocet 5/325 Mg Tab) 2 tab PO Q6 PRN PRN Reason: Pain, severe (8-10) Stop: 04/18/18 15:25 Last Admin: 04/17/18 08:04 Dose: 2 tab Oxycodone/Acetaminophen (Percocet 5/325 Mg Tab) 1 tab PO Q4 PRN PRN Reason: Pain, moderate (4-7) Stop: 04/18/18 15:28 Last Admin: 04/15/18 21:02 Dose: 1 tab Prednisone (Prednisone Tab) 40 mg PO DAILY [facility] Last Admin: 04/16/18 13:48 Dose: 40 mg Fluticasone/Salmeterol (Advair Diskus 500/50) 1 puff INH Q12 [facility] Last Admin: 04/16/18 20:01 Dose: 1 puff - Labs Labs: 04/17/18 05:25 04/17/18 05:25 PT 12.4 Seconds (9.8-13.1) 04/13/18 23:00 INR 1.1 04/13/18 23:00 APTT 35.3 Seconds (25.6-37.1) 04/13/18 23:00 - Constitutional Appears: No Acute Distress - Head Exam Head Exam: NORMAL INSPECTION - Eye Exam Eye Exam: EOMI, Normal appearance, PERRL Pupil Exam: NORMAL ACCOMODATION - ENT Exam ENT Exam: Mucous Membranes Moist - Neck Exam Neck Exam: Normal Inspection - Respiratory Exam Respiratory Exam: Wheezes, NORMAL BREATHING PATTERN. absent: Accessory Muscle Use, Chest Wall Tenderness, Decreased Breath Sounds Additional comments: Right side subcutaneous emphysema, improved S/p POD# 4, right Chest tube in place, dressing d/c/i, 10cc serosanguineous output noted in last 24 hours. - Cardiovascular Exam Cardiovascular Exam: REGULAR RHYTHM, +S1, +S2 - GI/Abdominal Exam GI & Abdominal Exam: Soft, Normal Bowel Sounds. absent: Rigid, Tenderness - Extremities Exam Extremities Exam: Full ROM, Normal Capillary Refill, Normal Inspection - Back Exam Back Exam: absent: CVA tenderness (L), CVA tenderness (R) - Neurological Exam Neurological Exam: Alert, Awake, CN II-XII Intact, Oriented x3 - Psychiatric Exam Psychiatric exam: Normal Affect - Skin Additional comments: Vitiligo skin changes Assessment and Plan - Assessment and Plan (Free Text) Assessment: A/P: 42 yo male with PMH of Severe Persistent asthma, COPD, gastritis, pancreatitis, and Eosinophilic colitis Admitted for iatrogenic Pneumothorax. Right Lung Pneumothorax s/p chest tube placement day#4, s/p lung biopsy 04/09/18 ; pending results - Thoracic Surgery Consulted, Dr. Yo, recommendations appreciated - CXR; no visible pneumothorax - Pain management: Oxycodone and Gabapentin 300 TID - Monitor pleura-vac output, vital signs and respiratory status - Follow up daily CXR and surgery recommendations: Possible CT chest thursday w/ clamp trial to follow Hospital acquired pneumonia - Improved - CXR 04/15/18 at 17:56: Left lobe infiltrate - Consult ID, Dr. Swain, recommendations appreciated - Sputum Cx: Growing Klebsiella, Sensetive to meropenem - C/w Meropenem day1 and Vencomycin day2 (V Trough 11.5 on 04/17) - Will follow up with ID - Follow up Bcx x2 History of Severe Persistent asthma and COPD - Patient is wheezing R>L - C/w home medications: Duoneb Q4, Fluticasone/salmeterol BID, Albuterol inh PRN - Pulmonary consult, Dr. Esposito, will follow recommendations - Continue with Prednisone 40mg PO daily Eosinophilic collitis - Patients pain is well controlled since superior hypogastric plexus block - Patient to follow up with Rheumatology, Dr. Brown as outpatient - Consult GI, Dr. Heart, recommendations appreciated (Spoke with GI: cleared for Prednisone 40mg PO daily) - Continue PPI, Pepcid, Amitriptyline and budesonide. History of systolic disfunction with reduced EF - Asymptomatic - Echo 12/15/17: EF 35-40% DVT prophylaxis - SCDs - Lovenox 40 SC daily
[2018-04-17] MEDS: Enoxaparin 40 mg Syringe SC SCH ×2 (09:21→09:38)
--- NOTE | 2018-04-17 10:45 | RAD ---
Date of service: 04/17/2018 HISTORY: with rt chest tube COMPARISON: Chest radiograph dated 04/16/2018 FINDINGS: LUNGS: Left basilar atelectasis. PLEURA: Questionable small pleural effusion. CARDIOVASCULAR: Normal. OSSEOUS STRUCTURES: Unchanged. VISUALIZED UPPER ABDOMEN: Normal. OTHER FINDINGS: Right-sided large-bore chest tube, unchanged. Right lateral chest wall subcutaneous emphysema, unchanged. IMPRESSION: Stable right chest tube without appreciable pneumothorax. Similar right chest wall subcutaneous emphysema. Left basilar atelectasis and/or small effusion.
--- NOTE | 2018-04-17 12:28 | CP.PCM.PN ---
Subjective - Date & Time of Evaluation Date of Evaluation: 04/17/18 Time of Evaluation: 12:28 - Subjective Subjective: ID Note- Pt. seen and examined today. pt. sitting in chair and in good spirits. His is at his bedside as well. pt. states he feels well and has been walking in ICU w/o any sob. he states he still has cough with thick phlegm but no sob. denies any fever , denies any diarrhea. has good appetite. Objective - Vital Signs/Intake and Output Vital Signs (last 24 hours): Temp Pulse Resp BP Pulse Ox 98.1 F 100 H 20 114/78 100 04/17/18 08:00 04/17/18 10:00 04/17/18 10:00 04/17/18 08:00 04/17/18 10:00 Intake and Output: 04/17/18 04/17/18 06:59 18:59 Intake Total 2300 550 Output Total 1100 700 Balance 1200 -150 - Medications Medications: Current Medications Acetaminophen (Tylenol 325mg Tab) 650 mg PO Q4 PRN PRN Reason: Pain, Mild (1-3) Albuterol (Ventolin Hfa 90 Mcg/Actuation (8 G)) 2 puff IH Q6 PRN PRN Reason: Shortness of Breath Last Admin: 04/16/18 02:23 Dose: 2 puff Amitriptyline HCl (Elavil) 10 mg PO HS [facility] Last Admin: 04/16/18 21:10 Dose: 10 mg Docusate Sodium (Colace) 100 mg PO DAILY [facility] Last Admin: 04/17/18 09:20 Dose: Not Given Enoxaparin Sodium (Lovenox) 40 mg SC DAILY [facility] PRN Reason: Protocol Last Admin: 04/17/18 09:38 Dose: Not Given Famotidine (Pepcid) 20 mg PO HS [facility] Last Admin: 04/16/18 21:11 Dose: 20 mg Gabapentin (Neurontin) 300 mg PO TID [facility] Last Admin: 04/17/18 09:21 Dose: 300 mg Home Med (Budesonide [Entocort Ec]) 9 mg PO DAILY [facility] Last Admin: 04/17/18 09:19 Dose: 9 mg Vancomycin HCl 1 gm/ Sodium (Chloride) 250 mls @ 166.667 mls/hr IVPB Q12 [facility] PRN Reason: Protocol Last Admin: 04/17/18 09:24 Dose: 166.667 mls/hr Meropenem 1 gm/ Sodium (Chloride) 100 mls @ 100 mls/hr IVPB Q8 [facility] PRN Reason: Protocol Last Admin: 04/17/18 08:07 Dose: 100 mls/hr Levalbuterol HCl (Xopenex) 1.25 mg INH RQ4 [facility] Last Admin: 04/17/18 08:03 Dose: 1.25 mg Montelukast Sodium (Singulair) 10 mg PO HS [facility] Last Admin: 04/16/18 21:13 Dose: 10 mg Oxycodone/Acetaminophen (Percocet 5/325 Mg Tab) 2 tab PO Q6 PRN PRN Reason: Pain, severe (8-10) Stop: 04/18/18 15:25 Last Admin: 04/17/18 08:04 Dose: 2 tab Oxycodone/Acetaminophen (Percocet 5/325 Mg Tab) 1 tab PO Q4 PRN PRN Reason: Pain, moderate (4-7) Stop: 04/18/18 15:28 Last Admin: 04/15/18 21:02 Dose: 1 tab Prednisone (Prednisone Tab) 40 mg PO DAILY [facility] Last Admin: 04/17/18 09:22 Dose: 40 mg Fluticasone/Salmeterol (Advair Diskus 500/50) 1 puff INH Q12 [facility] Last Admin: 04/17/18 09:19 Dose: 1 puff - Labs Labs: - Additional Findings Additional findings: - Constitutional Appears: Non-toxic, No Acute Distress - Head Exam Head Exam: ATRAUMATIC - Eye Exam Eye Exam: EOMI, PERRL - ENT Exam ENT Exam: Normal Oropharynx - Neck Exam Neck exam: Positive for: Full Rom - Respiratory Exam Respiratory Exam: NORMAL BREATHING PATTERN Additional comments: has right chest tube in place No wheezing good breath sounds heard b/l - Cardiovascular Exam Cardiovascular Exam: RRR, +S1, +S2 - GI/Abdominal Exam GI & Abdominal Exam: Normal Bowel Sounds, Soft Additional comments: NT, ND - Extremities Exam Additional comments: no edema B/l Le - Neurological Exam Neurological exam: Alert, Oriented x 3 Laboratory Results - last 72 hr 04/15/18 04/15/18 04/15/18 04:35 18:43 18:55 WBC 13.6 H RBC 3.92 L Hgb 11.3 L D Hct 34.5 L MCV 88.1 MCH 28.8 MCHC 32.7 L RDW 15.1 H Plt Count 256 MPV 8.4 Neut % (Auto) 78.1 H Lymph % (Auto) 12.0 L [place] % (Auto) 9.9 Eos % (Auto) 0.0 Baso % (Auto) 0.0 Neut # (Auto) 10.6 H Lymph # (Auto) 1.6 [place] # (Auto) 1.3 H Eos # (Auto) 0.0 Baso # (Auto) 0.0 Neutrophils % (Manual) Band Neutrophils % Lymphocytes % (Manual) Monocytes % (Manual) Platelet Estimate Large Platelets Hypochromasia (manual) Anisocytosis (manual) Macrocytosis (manual) Tear Drop Cells Ovalocytes pCO2 33 L pO2 139 H HCO3 25.7 ABG pH 7.47 H ABG Total CO2 25.0 ABG O2 Saturation 99.7 H ABG Base Excess 0.9 Stewart Test Yes ABG Potassium 3.2 L A-a O2 Difference 34.0 Sodium 136.0 139 Chloride 105.0 105 Glucose 113 H Lactate 2.4 H Vent Mode High flow lpm FiO2 30.0 Potassium 3.3 L Carbon Dioxide 24 Anion Gap 13 BUN 19 Creatinine 0.8 Est GFR ( Amer) > 60 Est GFR (Non-Af Amer) > 60 Random Glucose 107 Lactic Acid Calcium 8.3 L Total Bilirubin AST ALT Alkaline Phosphatase Total Protein Albumin Globulin Albumin/Globulin Ratio Arterial Blood Potassium 3.2 L Urine Color Urine Clarity Urine pH Ur Specific [place] Urine Protein Urine Glucose (UA) Urine Ketones Urine Blood Urine Nitrate Urine Bilirubin Urine Urobilinogen Ur Leukocyte Esterase Urine RBC (Auto) Urine Microscopic WBC Vancomycin Trough 04/15/18 04/15/18 04/16/18 19:35 19:45 04:25 WBC 18.4 H 24.0 H RBC 4.05 L 3.75 L Hgb 11.4 L 10.6 L Hct 35.5 33.5 L MCV 87.7 89.2 MCH 28.1 28.3 MCHC 32.1 L 31.8 L RDW 15.5 H 15.7 H Plt Count 257 235 MPV 8.4 8.5 Neut % (Auto) 85.7 H 94.1 H Lymph % (Auto) 7.4 L 3.4 L [place] % (Auto) 6.3 2.5 Eos % (Auto) 0.5 0.0 Baso % (Auto) 0.1 0.0 Neut # (Auto) 15.8 H 22.6 H Lymph # (Auto) 1.4 0.8 L [place] # (Auto) 1.2 H 0.6 Eos # (Auto) 0.1 0.0 Baso # (Auto) 0.0 0.0 Neutrophils % (Manual) 79 H 92 H Band Neutrophils % 8 H Lymphocytes % (Manual) 5 L 6 L Monocytes % (Manual) 8 2 Platelet Estimate Normal Normal Large Platelets Present Present Hypochromasia (manual) Slight Anisocytosis (manual) Moderate Slight Macrocytosis (manual) Slight Tear Drop Cells Slight Ovalocytes Slight pCO2 pO2 HCO3 ABG pH ABG Total CO2 ABG O2 Saturation ABG Base Excess Stewart Test ABG Potassium A-a O2 Difference Sodium Chloride Glucose Lactate Vent Mode FiO2 Potassium Carbon Dioxide Anion Gap BUN Creatinine Est GFR ( Amer) Est GFR (Non-Af Amer) Random Glucose Lactic Acid Calcium Total Bilirubin AST ALT Alkaline Phosphatase Total Protein Albumin Globulin Albumin/Globulin Ratio Arterial Blood Potassium Urine Color Yellow Urine Clarity Clear Urine pH 5.0 Ur Specific [place] 1.012 Urine Protein Negative Urine Glucose (UA) Neg Urine Ketones Negative Urine Blood Negative Urine Nitrate Negative Urine Bilirubin Negative Urine Urobilinogen 0.2-1.0 Ur Leukocyte Esterase Neg Urine RBC (Auto) 1 Urine Microscopic WBC < 1 Vancomycin Trough 04/16/18 04/16/18 04/17/18 04:25 04:25 05:25 WBC 15.6 H RBC 3.68 L Hgb 10.5 L Hct 32.2 L MCV 87.7 MCH 28.6 MCHC 32.6 L RDW 16.0 H Plt Count 236 MPV 8.4 Neut % (Auto) 85.5 H Lymph % (Auto) 8.4 L [place] % (Auto) 6.0 Eos % (Auto) 0.0 Baso % (Auto) 0.1 Neut # (Auto) 13.4 H Lymph # (Auto) 1.3 [place] # (Auto) 0.9 H Eos # (Auto) 0.0 Baso # (Auto) 0.0 Neutrophils % (Manual) Band Neutrophils % Lymphocytes % (Manual) Monocytes % (Manual) Platelet Estimate Large Platelets Hypochromasia (manual) Anisocytosis (manual) Macrocytosis (manual) Tear Drop Cells Ovalocytes pCO2 pO2 HCO3 ABG pH ABG Total CO2 ABG O2 Saturation ABG Base Excess Stewart Test ABG Potassium A-a O2 Difference Sodium 141 Chloride 111 H Glucose Lactate Vent Mode FiO2 Potassium 4.1 Carbon Dioxide 21 L Anion Gap 13 BUN 16 Creatinine 0.8 Est GFR ( Amer) > 60 Est GFR (Non-Af Amer) > 60 Random Glucose 153 H Lactic Acid 2.7 H Calcium 7.9 L Total Bilirubin 0.3 AST 41 ALT 77 H D Alkaline Phosphatase 103 Total Protein 5.8 L Albumin 2.7 L Globulin 3.2 Albumin/Globulin Ratio 0.8 L Arterial Blood Potassium Urine Color Urine Clarity Urine pH Ur Specific [place] Urine Protein Urine Glucose (UA) Urine Ketones Urine Blood Urine Nitrate Urine Bilirubin Urine Urobilinogen Ur Leukocyte Esterase Urine RBC (Auto) Urine Microscopic WBC Vancomycin Trough 04/17/18 04/17/18 05:25 10:00 WBC RBC Hgb Hct MCV MCH MCHC RDW Plt Count MPV Neut % (Auto) Lymph % (Auto) [place] % (Auto) Eos % (Auto) Baso % (Auto) Neut # (Auto) Lymph # (Auto) [place] # (Auto) Eos # (Auto) Baso # (Auto) Neutrophils % (Manual) Band Neutrophils % Lymphocytes % (Manual) Monocytes % (Manual) Platelet Estimate Large Platelets Hypochromasia (manual) Anisocytosis (manual) Macrocytosis (manual) Tear Drop Cells Ovalocytes pCO2 pO2 HCO3 ABG pH ABG Total CO2 ABG O2 Saturation ABG Base Excess Stewart Test ABG Potassium A-a O2 Difference Sodium 142 Chloride 110 H Glucose Lactate Vent Mode FiO2 Potassium 4.0 Carbon Dioxide 23 Anion Gap 13 BUN 16 Creatinine 0.7 L Est GFR ( Amer) > 60 Est GFR (Non-Af Amer) > 60 Random Glucose 120 H Lactic Acid Calcium 8.3 L Total Bilirubin 0.2 AST 18 ALT 55 Alkaline Phosphatase 101 Total Protein 5.8 L Albumin 2.7 L Globulin 3.2 Albumin/Globulin Ratio 0.8 L Arterial Blood Potassium Urine Color Urine Clarity Urine pH Ur Specific [place] Urine Protein Urine Glucose (UA) Urine Ketones Urine Blood Urine Nitrate Urine Bilirubin Urine Urobilinogen Ur Leukocyte Esterase Urine RBC (Auto) Urine Microscopic WBC Vancomycin Trough 11.5 H Microbiology 04/15/18 19:45 Urine,Clean Catch Urine Culture - Final No Growth (<1,000 CFU/ML) 04/15/18 19:45 Sputum Gram Stain - Final 04/15/18 19:45 Sputum Sputum Culture - Final Klebsiella Pneumoniae Ssp Pneu 04/15/18 18:55 Blood Blood Culture - Preliminary NO GROWTH AFTER 24 HOURS 04/15/18 18:45 Blood Blood Culture - Preliminary NO GROWTH AFTER 24 HOURS 04/14/18 10:45 Nose MRSA Culture (Admit) - Final MRSA NOT DETECTED Accession No. : [id number] Patient Name / ID : ANTHONY FERNANDEZ / [id number] Exam Date : 04/17/2018 09:03:36 ( Approved ) Study Comment : Sex / Age : M / 42Y Creator : Lance Chapman MD Dictator : Lance Chapman MD Marketing Project Specialist : Educational Assistant : Lance Chapman MD Approver2 : Report Date : 04/17/2018 10:39:08 My Comment : Date of service: 04/17/2018 HISTORY: with rt chest tube COMPARISON: Chest radiograph dated 04/16/2018 FINDINGS: LUNGS: Left basilar atelectasis. PLEURA: Questionable small pleural effusion. CARDIOVASCULAR: Normal. OSSEOUS STRUCTURES: Unchanged. VISUALIZED UPPER ABDOMEN: Normal. OTHER FINDINGS: Right-sided large-bore chest tube, unchanged. Right lateral chest wall subcutaneous emphysema, unchanged. IMPRESSION: Stable right chest tube without appreciable pneumothorax. Similar right chest wall subcutaneous emphysema. Left basilar atelectasis and/or small effusion. Assessment and Plan (1) Pneumothorax Status: Acute (2) COPD (chronic obstructive pulmonary disease) Status: Acute (3) Eosinophilic colitis Status: Acute - Assessment and Plan (Free Text) Assessment: A/P- 42 year old male with extensive medical history including multiple bouts of abdominal pian, pancreatitis, colitis, gastritis, pulmonary nodules, copd has had extensive work up done and was diagnosed with eosinophilic colitis via colonoscopy . recent lung biopsy for further eval of the pulm nodules and developed PTC post that is now in ICU with right sided chest tube. afebrile Leukocytosis trending down sputum cx- Klebsiella pneumonia ( pansensitive) UA- neg blood cx- neg x 2 urine cx- neg PLan- will d/c IV vanco. advise to continue with IV meropenm since the VICENTE of the klebsiella is very good to this day #2. advise 2-3 more days of the IV meropenem, can de-escalate after that. still has chest tube in place. lung biopsy result pending All labs and imaging reviewed. all above d/w patient and his and they verbalize full understanding of all above and agree with above plan of care. ICU time 40 minutes.
[2018-04-17] MEDS ORDERED: Albuterol HFA 90 mcg/actuation (8 g) IH PRN (23:56)
[2018-04-17] MEDS ORDERED: Lidocaine/Prilocaine CREAM 5GM TP ONE (23:56)
[2018-04-17] MEDS ORDERED: Oxycodone/Acetaminophen 5/325 mg Tab PO PRN ×2 (23:56)
[2018-04-17] MEDS ORDERED: Sodium Chloride 3% for Inhalation 4 ML VIAL.NEB IH PRN (23:56)
[2018-04-18] MEDS: Meropenem 1 GM in Sodium Chloride 0.9% 100 ML IVPB SCH ×3 (00:05→17:19)
[2018-04-18] MEDS: Levalbuterol 1.25 MG/3 ML Inhal Soln UD INH SCH ×3 (00:12→11:28)
[2018-04-18 05:01] LABS: BASO % 0.1 % (0.0-2.0); EOS # 0.2 K/uL (0.0-0.7); EOS % 1.5 % (0.0-4.0); LYMPH # 2.3 K/uL (1.0-4.3); MEAN CELL VOLUME 88.2 fl (80.0-94.0); MEAN CORPUSCULAR HEMOGLOBIN 28.4 pg (27.0-31.0); MEAN CORPUSCULAR HGB CONC 32.2 g/dL (33.0-37.0); MEAN PLATELET VOLUME 8.2 fl (7.2-11.7); MONO # 0.9 K/uL (0.0-0.8); MONO % 7.2 % (0.0-10.0); NEUT # 9.3 K/uL (1.8-7.0); NEUT % 73.2 % (50.0-75.0); RBC 3.87 Mil/uL (4.40-5.90); RED CELL DISTRIBUTION WIDTH 15.9 % (11.5-14.5); WHITE BLOOD COUNT 12.7 K/uL (4.8-10.8)
[2018-04-18 05:11] LABS: BLOOD UREA NITROGEN 17 mg/dl (9-20); CALCIUM 8.6 mg/dL (8.4-10.2); GFR AFRICAN-AMERICAN > 60; GFR NON-AFRICAN AMERICAN > 60
--- NOTE | 2018-04-18 07:52 | CP.PCM.PN ---
Subjective - Date & Time of Evaluation Date of Evaluation: 04/18/18 Time of Evaluation: 07:51 - Subjective Subjective: CT surgery progress note for Dr. Michell Snow, PGY-2 Pt S & E at bedside at 0720 Pt reports some pain back pain, minimal pain at CT insertion site. Denies N & V , F & C. Getting OOBTC, ambulating. Tolerating diet. CT with no airleaks, no output. Objective - Vital Signs/Intake and Output Vital Signs (last 24 hours): Temp Pulse Resp BP Pulse Ox 97.8 F 86 19 121/84 97 04/18/18 04:00 04/18/18 06:00 04/18/18 06:00 04/18/18 06:00 04/18/18 06:00 Intake and Output: 04/18/18 04/18/18 06:59 18:59 Intake Total 1740 Output Total 2167 Balance -427 - Medications Medications: Current Medications Acetaminophen (Tylenol 325mg Tab) 650 mg PO Q4 PRN PRN Reason: Pain, Mild (1-3) Albuterol (Ventolin Hfa 90 Mcg/Actuation (8 G)) 2 puff IH Q6 PRN PRN Reason: Shortness of Breath Amitriptyline HCl (Elavil) 10 mg PO HS [facility] Docusate Sodium (Colace) 100 mg PO DAILY [facility] Enoxaparin Sodium (Lovenox) 40 mg SC DAILY [facility] PRN Reason: Protocol Famotidine (Pepcid) 20 mg PO HS [facility] Gabapentin (Neurontin) 300 mg PO TID [facility] Home Med (Budesonide [Entocort Ec]) 9 mg PO DAILY [facility] Meropenem 1 gm/ Sodium (Chloride) 100 mls @ 100 mls/hr IVPB Q8 [facility] PRN Reason: Protocol Last Admin: 04/18/18 00:05 Dose: 100 mls/hr Levalbuterol HCl (Xopenex) 1.25 mg INH RQ4 [facility] Last Admin: 04/18/18 07:21 Dose: 1.25 mg Montelukast Sodium (Singulair) 10 mg PO HS [facility] Oxycodone/Acetaminophen (Percocet 5/325 Mg Tab) 2 tab PO Q6 PRN PRN Reason: Pain, severe (8-10) Stop: 04/18/18 15:25 Oxycodone/Acetaminophen (Percocet 5/325 Mg Tab) 1 tab PO Q4 PRN PRN Reason: Pain, moderate (4-7) Stop: 04/18/18 15:28 Prednisone (Prednisone Tab) 40 mg PO DAILY [facility] Fluticasone/Salmeterol (Advair Diskus 500/50) 1 puff INH Q12 [facility] - Labs Labs: 04/18/18 04:39 04/18/18 04:39 PT 12.4 Seconds (9.8-13.1) 04/13/18 23:00 INR 1.1 04/13/18 23:00 APTT 35.3 Seconds (25.6-37.1) 04/13/18 23:00 - Constitutional Appears: Non-toxic, No Acute Distress - Head Exam Head Exam: ATRAUMATIC, NORMAL INSPECTION, NORMOCEPHALIC - Eye Exam Eye Exam: EOMI, Normal appearance - ENT Exam ENT Exam: Mucous Membranes Moist, Normal Exam - Neck Exam Neck Exam: Full ROM, Normal Inspection - Respiratory Exam Respiratory Exam: NORMAL BREATHING PATTERN Additional comments: Right chest with dressing in place- dressing with small amount of dried sanguinous output - Cardiovascular Exam Cardiovascular Exam: REGULAR RHYTHM, +S1, +S2 - GI/Abdominal Exam GI & Abdominal Exam: Soft. absent: Distended - Neurological Exam Neurological Exam: Alert, Awake, CN II-XII Intact, Oriented x3 - Psychiatric Exam Psychiatric exam: Normal Affect, Normal Mood - Skin Skin Exam: Dry, Intact, Warm. absent: Normal Color (vitiligo) Assessment and Plan - Assessment and Plan (Free Text) Assessment: 42 y/o M w/ R-sides pneumothorax 2/2 RLL lung Bx POD#5 s/p bedside R chest tube placement AM CXR - no pneumothorax Plan: CT chest tomorrow CT clamp trial today Cont pain control PRN Cont IV Abx Possible D/c Thursday Encourage OOBTC Encourage IS use Ambulate OK to transfer to med-surg DW attending Gwendolyn, PGY-2
[2018-04-18] MEDS: Enoxaparin 40 mg Syringe SC SCH (10:02)
[2018-04-18] MEDS ORDERED: Oxycodone/Acetaminophen 5/325 mg Tab ONE (10:07)
[2018-04-18] MEDS ORDERED: Oxycodone/Acetaminophen 5/325 mg Tab PO STA (10:09)
[2018-04-18] MEDS: Fluticasone-Salmeterol 500-50mcg Diskus INH SCH ×2 (10:18→20:53)
--- NOTE | 2018-04-18 10:51 | RAD ---
Date of service: 04/18/2018 HISTORY: chest tube COMPARISON: Chest radiograph dated 04/17/2018. FINDINGS: LUNGS: Multiple right lung nodular densities redemonstrated with largest again seen in the right lower lobe. Left basilar atelectasis. PLEURA: Questionable small left pleural effusion. No appreciable pneumothorax. CARDIOVASCULAR: Normal. OSSEOUS STRUCTURES: Unchanged. VISUALIZED UPPER ABDOMEN: Normal. OTHER FINDINGS: Large right-sided chest tube, unchanged. Right lateral chest wall subcutaneous emphysema, grossly similar. IMPRESSION: Stable right chest tube without appreciable pneumothorax. Similar right chest wall subcutaneous emphysema. Redemonstration of right lung nodular densities with largest in the right lower lobe. Left basilar atelectasis and/or small effusion.
--- NOTE | 2018-04-18 13:05 | CP.PCM.CON ---
History of Present Illness - History of Present Illness History of Present Illness: This note reflects an encounter with the patient yesterday, April 17, 2018. Written and signed today. 42 yo with hx of B. Asthma presents with increased in Sx of pooly controlled asthma. Bx of a nodule led to post procedure Px requiring Chest Tube placement. 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 Never smoker. NKDA. No hx of Peripheral Neuropathy. Eosinophils have been normal. No Hematuria or kidney involvment. No persistent sinus sx. No hx of cardiac problems. Sx: [place] at CT insertion site. Breathing better. PE WNL VSS. Head Neg Adeno Pos Viviana. Heart: NS1S2 Neg M. RRR. Lungs, some scattered crackles which changed. Abdo Soft No C,C,E. Ches x-ray showed small residual Px. Assessment and Plan: Acute Resp Insuff 2/2 B. Asthma R/O Churg Cristopher Vasculitis (low on list given paucity of other symptoms and signs.) Right Px s/p CT placement. -Cont steroids and albuterol via nebs. -O2 for O2 Sat > 90% -Abx as per ID. -Awaiting results of Bx (May show vasculitis if CS is present.) r/o Malignancy. -Repeat CT scan as outpatient to see if infiltrates fleet. -Environmental and Food Allergy Panels. -Monitor Peak Flows Pre and Post nebulized treatments. -F/U in Pulmonary Clinic. -Rheumatology Consultation for further diagnostic testing and treatment, if CS is still suspected. -PUD and DVT Prophylaxis. -Cont clamping of CT and if repeat imaging does not show sig Pneumo, d/c tube by Thoracic Surgery. Repeat X-ray after several hours of d/cing Tube. Thank you for this consult, I have no further input and signing out of case. Re consult if condition is not improving. Past Patient History - Infectious Disease Hx of Infectious Diseases: None - Past Medical History & Family History Past Medical History?: Yes - Past Social History Smoking Status: Never Smoked Home Situation {Lives}: With Family - CARDIAC Hx Congestive Heart Failure: Yes - PULMONARY Hx Asthma: Yes Hx Chronic Obstructive Pulmonary Disease (COPD): Yes Hx Pneumonia: Yes - NEUROLOGICAL Hx Neurological Disorder: No - HEENT Hx HEENT Problems: No - RENAL Hx Chronic Kidney Disease: No - ENDOCRINE/METABOLIC Hx Endocrine Disorders: No - HEMATOLOGICAL/ONCOLOGICAL Hx Blood Disorders: No - INTEGUMENTARY Hx Dermatological Problems: No - MUSCULOSKELETAL/RHEUMATOLOGICAL Hx Falls: No - GASTROINTESTINAL Hx Diverticulitis: Yes Hx Gastritis: Yes Hx Pancreatitis: Yes - GENITOURINARY/GYNECOLOGICAL Hx Genitourinary Disorders: No - PSYCHIATRIC Hx Substance Use: No - SURGICAL HISTORY Hx Surgeries: Yes Other/Comment: I&D LEG ABSCESS - ANESTHESIA Hx Anesthesia: Yes Hx Anesthesia Reactions: No Hx Malignant Hyperthermia: No Meds Allergies/Adverse Reactions: Allergies Allergy/AdvReac Type Severity Reaction Status Date / Time wheat Allergy PAIN Verified 04/07/18 10:57 - Medications Medications: Current Medications Acetaminophen (Tylenol 325mg Tab) 650 mg PO Q4 PRN PRN Reason: Pain, Mild (1-3) Albuterol (Ventolin Hfa 90 Mcg/Actuation (8 G)) 2 puff IH Q6 PRN PRN Reason: Shortness of Breath Amitriptyline HCl (Elavil) 10 mg PO HS [facility] Docusate Sodium (Colace) 100 mg PO DAILY [facility] Last Admin: 04/18/18 10:19 Dose: Not Given Enoxaparin Sodium (Lovenox) 40 mg SC DAILY [facility] PRN Reason: Protocol Last Admin: 04/18/18 10:02 Dose: Not Given Famotidine (Pepcid) 20 mg PO HS [facility] Gabapentin (Neurontin) 300 mg PO TID [facility] Last Admin: 04/18/18 10:19 Dose: 300 mg Home Med (Budesonide [Entocort Ec]) 9 mg PO DAILY [facility] Meropenem 1 gm/ Sodium (Chloride) 100 mls @ 100 mls/hr IVPB Q8 [facility] PRN Reason: Protocol Last Admin: 04/18/18 10:00 Dose: 100 mls/hr Levalbuterol HCl (Xopenex) 1.25 mg INH RQ4 [facility] Last Admin: 04/18/18 11:28 Dose: Not Given Montelukast Sodium (Singulair) 10 mg PO HS [facility] Morphine Sulfate (Morphine) 2 mg IVP Q6 PRN PRN Reason: Pain, severe (8-10) Last Admin: 04/18/18 09:55 Dose: 2 mg Morphine Sulfate (Morphine) 1 mg IVP Q6 PRN PRN Reason: Pain, moderate (4-7) Ondansetron HCl (Zofran Inj) 4 mg IVP Q6 PRN PRN Reason: Nausea/Vomiting Last Admin: 04/18/18 10:10 Dose: 4 mg Prednisone (Prednisone Tab) 30 mg PO DAILY [facility] Fluticasone/Salmeterol (Advair Diskus 500/50) 1 puff INH Q12 [facility] Last Admin: 04/18/18 10:18 Dose: 1 puff Results - Vital Signs Recent Vital Signs: Last Vital Signs Temp 97.9 F 04/18/18 08:00 Pulse 104 H 04/18/18 10:00 Resp 19 04/18/18 10:00 BP 127/83 04/18/18 10:00 Pulse Ox 97 04/18/18 10:00 - Labs Result Diagrams: 04/18/18 04:39 04/18/18 04:39 Labs: Laboratory Results - last 24 hr 04/18/18 04/18/18 04:39 04:39 WBC 12.7 H RBC 3.87 L Hgb 11.0 L Hct 34.1 L MCV 88.2 MCH 28.4 MCHC 32.2 L RDW 15.9 H Plt Count 261 MPV 8.2 Neut % (Auto) 73.2 Lymph % (Auto) 18.0 L [place] % (Auto) 7.2 Eos % (Auto) 1.5 Baso % (Auto) 0.1 Neut # (Auto) 9.3 H Lymph # (Auto) 2.3 [place] # (Auto) 0.9 H Eos # (Auto) 0.2 Baso # (Auto) 0.0 Sodium 142 Potassium 4.5 Chloride 108 H Carbon Dioxide 27 Anion Gap 12 BUN 17 Creatinine 0.8 Est GFR ( Amer) > 60 Est GFR (Non-Af Amer) > 60 Random Glucose 98 Calcium 8.6
[2018-04-18] MEDS: BUDESONIDE 9 MG PO SCH (14:40)
--- NOTE | 2018-04-18 15:30 | CP.PCM.PN ---
Subjective - Date & Time of Evaluation Date of Evaluation: 04/18/18 Time of Evaluation: 09:20 - Subjective Subjective: POD # 5 s/p right chest tube placement. Patient seen and examined at bedside. Denies SOB, fevers or chills. Pain at chest tube insertion site is controlled with medication. Patient is tolerating PO diet, has normal urine and stool output. Objective - Vital Signs/Intake and Output Vital Signs (last 24 hours): Temp Pulse Resp BP Pulse Ox 98 F 100 H 20 115/71 96 04/18/18 12:00 04/18/18 14:00 04/18/18 14:00 04/18/18 12:00 04/18/18 12:00 Intake and Output: 04/18/18 04/18/18 06:59 18:59 Intake Total 1740 350 Output Total 2167 1600 Balance -427 -1250 - Medications Medications: Current Medications Acetaminophen (Tylenol 325mg Tab) 650 mg PO Q4 PRN PRN Reason: Pain, Mild (1-3) Albuterol (Ventolin Hfa 90 Mcg/Actuation (8 G)) 2 puff IH Q6 PRN PRN Reason: Shortness of Breath Amitriptyline HCl (Elavil) 10 mg PO HS [facility] Docusate Sodium (Colace) 100 mg PO DAILY [facility] Last Admin: 04/18/18 10:19 Dose: Not Given Enoxaparin Sodium (Lovenox) 40 mg SC DAILY [facility] PRN Reason: Protocol Last Admin: 04/18/18 10:02 Dose: Not Given Famotidine (Pepcid) 20 mg PO HS [facility] Gabapentin (Neurontin) 300 mg PO TID [facility] Last Admin: 04/18/18 14:40 Dose: 300 mg Home Med (Budesonide [Entocort Ec]) 9 mg PO DAILY [facility] Last Admin: 04/18/18 14:40 Dose: 9 mg Meropenem 1 gm/ Sodium (Chloride) 100 mls @ 100 mls/hr IVPB Q8 [facility] PRN Reason: Protocol Last Admin: 04/18/18 10:00 Dose: 100 mls/hr Levalbuterol HCl (Xopenex) 1.25 mg INH RQ4 [facility] Last Admin: 04/18/18 11:28 Dose: Not Given Montelukast Sodium (Singulair) 10 mg PO HS [facility] Morphine Sulfate (Morphine) 2 mg IVP Q6 PRN PRN Reason: Pain, severe (8-10) Last Admin: 04/18/18 09:55 Dose: 2 mg Morphine Sulfate (Morphine) 1 mg IVP Q6 PRN PRN Reason: Pain, moderate (4-7) Ondansetron HCl (Zofran Inj) 4 mg IVP Q6 PRN PRN Reason: Nausea/Vomiting Last Admin: 04/18/18 10:10 Dose: 4 mg Prednisone (Prednisone Tab) 30 mg PO DAILY [facility] Fluticasone/Salmeterol (Advair Diskus 500/50) 1 puff INH Q12 [facility] Last Admin: 04/18/18 10:18 Dose: 1 puff - Labs Labs: 04/18/18 04:39 04/18/18 04:39 PT 12.4 Seconds (9.8-13.1) 04/13/18 23:00 INR 1.1 04/13/18 23:00 APTT 35.3 Seconds (25.6-37.1) 04/13/18 23:00 - Constitutional Appears: No Acute Distress - Head Exam Head Exam: ATRAUMATIC, NORMOCEPHALIC - Eye Exam Eye Exam: EOMI - ENT Exam ENT Exam: Mucous Membranes Moist - Neck Exam Neck Exam: Full ROM - Respiratory Exam Respiratory Exam: Wheezes (diffuse, mild), NORMAL BREATHING PATTERN Additional comments: right chest tube in place, dressing c/d/i - Cardiovascular Exam Cardiovascular Exam: REGULAR RHYTHM, +S1, +S2 - GI/Abdominal Exam GI & Abdominal Exam: Soft, Normal Bowel Sounds. absent: Tenderness - Extremities Exam Extremities Exam: Full ROM. absent: Pedal Edema - Neurological Exam Neurological Exam: Alert, Awake, CN II-XII Intact, Normal Gait, Oriented x3 - Psychiatric Exam Psychiatric exam: Normal Affect, Normal Mood - Skin Skin Exam: Dry, Warm Assessment and Plan - Assessment and Plan (Free Text) Assessment: 42 yr old M admitted for right sided pneumothorax with PMHx of Severe Persistent asthma, COPD, gastritis, pancreatitis, and Eosinophilic colitis. Right Lung Pneumothorax, POD # 5 s/p chest tube placement -Thoracic Surgery Consulted, Dr. 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 Swain, recommendations appreciated -Sputum Cx: Growing Klebsiella, Sensitive to meropenem -continue with Meropenem 1gm Q8 (day 3) for 2-3 more days, discontinue Vancomycin -04/16/18 blood cx negative 24hrs, 04/15/18 2x blood culture negative 48hrs History of Severe Persistent asthma and COPD -Patient is wheezing R>L -continue home medications: Xopenex INH Q4, Fluticasone/salmeterol 1 puff INH BID -Pulmonary consult, Dr. Esposito, will follow recommendations -Prednisone tapered to 30mg PO QD Eosinophilic collitis -chronic, controlled -pain well controlled s/p superior hypogastric plexus block -Patient to follow up with Rheumatology, Dr. Brown as outpatient -Consult GI, Dr. Heart, recommendations appreciated (Spoke with GI: cleared for Prednisone PO daily) -Continue Famotidine 20mg PO QHS, Amitriptyline 10mg PO QHS and Budesonide 9mg PO QD History of systolic disfunction with reduced EF -Asymptomatic -Echo 12/15/17: EF 35-40% DVT prophylaxis -SCDs -Lovenox 40 SC daily
[2018-04-18] MEDS ORDERED: Oxycodone/Acetaminophen 5/325 mg Tab PO PRN (18:02)
[2018-04-18] MEDS: Oxycodone/Acetaminophen 5/325 mg Tab PO PRN (20:50)
[2018-04-19] MEDS: Meropenem 1 GM in Sodium Chloride 0.9% 100 ML IVPB SCH ×3 (00:58→16:55)
[2018-04-19] MEDS ORDERED: Oxycodone/Acetaminophen 5/325 mg Tab PO STA (01:22)
--- NOTE | 2018-04-19 07:37 | CP.PCM.PN ---
Subjective - Date & Time of Evaluation Date of Evaluation: 04/19/18 Time of Evaluation: 07:00 - Subjective Subjective: Thoracic Surgery Dr. Yo Pt S&E @bedside. NAEO. some discomfort yesterday but denies pain. no complaints. denies CP, SOB, F/C, N/V. tolerating diet. OOB, ambulating hallways. Objective - Vital Signs/Intake and Output Vital Signs (last 24 hours): Temp Pulse Resp BP Pulse Ox 97.3 F L 93 H 20 118/81 96 04/18/18 23:50 04/18/18 23:50 04/18/18 23:50 04/18/18 23:50 04/18/18 23:50 - Medications Medications: Current Medications Acetaminophen (Tylenol 325mg Tab) 650 mg PO Q4 PRN PRN Reason: Pain, Mild (1-3) Albuterol (Ventolin Hfa 90 Mcg/Actuation (8 G)) 2 puff IH Q6 PRN PRN Reason: Shortness of Breath Amitriptyline HCl (Elavil) 10 mg PO HS [facility] Last Admin: 04/18/18 21:59 Dose: 10 mg Docusate Sodium (Colace) 100 mg PO DAILY [facility] Last Admin: 04/18/18 10:19 Dose: Not Given Enoxaparin Sodium (Lovenox) 40 mg SC DAILY [facility] PRN Reason: Protocol Last Admin: 04/18/18 10:02 Dose: Not Given Famotidine (Pepcid) 20 mg PO [facility] Last Admin: 04/18/18 22:00 Dose: 20 mg Gabapentin (Neurontin) 300 mg PO TID [facility] Last Admin: 04/18/18 17:17 Dose: 300 mg Home Med (Budesonide [Entocort Ec]) 9 mg PO DAILY [facility] Last Admin: 04/18/18 14:40 Dose: 9 mg Meropenem 1 gm/ Sodium (Chloride) 100 mls @ 100 mls/hr IVPB Q8 [facility] PRN Reason: Protocol Last Admin: 04/19/18 00:58 Dose: 100 mls/hr Levalbuterol HCl (Xopenex) 1.25 mg INH RQ4 [facility] Last Admin: 04/18/18 11:28 Dose: Not Given Montelukast Sodium (Singulair) 10 mg PO [facility] Last Admin: 04/18/18 21:58 Dose: 10 mg Ondansetron HCl (Zofran Inj) 4 mg IVP Q6 PRN PRN Reason: Nausea/Vomiting Last Admin: 04/18/18 10:10 Dose: 4 mg Oxycodone/Acetaminophen (Percocet 5/325 Mg Tab) 2 tab PO Q6 PRN PRN Reason: Pain, severe (8-10) Stop: 04/21/18 18:02 Last Admin: 04/18/18 20:50 Dose: 2 tab Oxycodone/Acetaminophen (Percocet 5/325 Mg Tab) 1 tab PO Q6 PRN PRN Reason: Pain, moderate (4-7) Stop: 04/21/18 18:03 Prednisone (Prednisone Tab) 30 mg PO DAILY [facility] Fluticasone/Salmeterol (Advair Diskus 500/50) 1 puff INH Q12 [facility] Last Admin: 04/18/18 20:53 Dose: 1 puff - Labs Labs: 04/18/18 04:39 04/18/18 04:39 PT 12.4 Seconds (9.8-13.1) 04/13/18 23:00 INR 1.1 04/13/18 23:00 APTT 35.3 Seconds (25.6-37.1) 04/13/18 23:00 - Constitutional Appears: Non-toxic, No Acute Distress - Head Exam Head Exam: NORMAL INSPECTION - Eye Exam Eye Exam: Normal appearance - ENT Exam ENT Exam: Mucous Membranes Moist - Respiratory Exam Respiratory Exam: NORMAL BREATHING PATTERN. absent: Accessory Muscle Use, Respiratory Distress Additional comments: (R) chest tube in place. on water seal. no leak. dressing c/d/i - Cardiovascular Exam Cardiovascular Exam: REGULAR RHYTHM. absent: Bradycardia, Tachycardia - GI/Abdominal Exam GI & Abdominal Exam: Soft. absent: Distended, Tenderness - Extremities Exam Extremities Exam: Normal Inspection - Neurological Exam Neurological Exam: Alert, Awake, Oriented x3 - Psychiatric Exam Psychiatric exam: Normal Affect, Normal Mood - Skin Skin Exam: Dry, Intact, Warm. absent: Normal Color (vitiligo) Assessment and Plan - Assessment and Plan (Free Text) Assessment: 42 y/o M w/ R-sided pneumothorax 2/2 RLL lung Bx POD#6 s/p bedside R chest tube placement - f/u CT chest today - cont pain management - Cont IV Abx - Encourage OOB to chair/Amb/IS use Pt discussed w/ Dr. Sanaz Shin DO PGY3
[2018-04-19] MEDS: Levalbuterol 1.25 MG/3 ML Inhal Soln UD INH SCH ×5 (07:51→23:01)
[2018-04-19 08:35] LABS: BASO % 0.1 % (0.0-2.0); EOS # 0.4 K/uL (0.0-0.7); EOS % 3.6 % (0.0-4.0); HEMOGLOBIN 10.9 g/dL (12.0-18.0); LYMPH # 2.4 K/uL (1.0-4.3); LYMPH % 21.2 % (20.0-40.0); MEAN CELL VOLUME 87.2 fl (80.0-94.0); MEAN CORPUSCULAR HEMOGLOBIN 29.4 pg (27.0-31.0); MEAN CORPUSCULAR HGB CONC 33.7 g/dL (33.0-37.0); MEAN PLATELET VOLUME 8.4 fl (7.2-11.7); MONO % 8.3 % (0.0-10.0); NEUT # 7.6 K/uL (1.8-7.0); NEUT % 66.8 % (50.0-75.0); RBC 3.72 Mil/uL (4.40-5.90); RED CELL DISTRIBUTION WIDTH 15.4 % (11.5-14.5); WHITE BLOOD COUNT 11.4 K/uL (4.8-10.8)
[2018-04-19] MEDS: Enoxaparin 40 mg Syringe SC SCH ×2 (09:13→09:19)
[2018-04-19] MEDS: BUDESONIDE 9 MG PO SCH (09:14)
[2018-04-19] MEDS: Fluticasone-Salmeterol 500-50mcg Diskus INH SCH ×2 (09:16→21:01)
--- NOTE | 2018-04-19 09:25 | CP.PCM.PN ---
Subjective - Date & Time of Evaluation Date of Evaluation: 04/19/18 Time of Evaluation: 07:45 - Subjective Subjective: Patient seen and examined this morning at bedside. NAD, aware of possible CT chest today, tolerating PO diet, afebrile, denies any chest pain, SOB, abdominal pain or urinary symptoms. POD # 6 s/p right chest tube placement, 30cc drainage in pleural vac in last 24 hrs Objective - Vital Signs/Intake and Output Vital Signs (last 24 hours): Temp Pulse Resp BP Pulse Ox 98.4 F 89 20 116/76 98 04/19/18 08:04 04/19/18 08:04 04/19/18 08:04 04/19/18 08:04 04/19/18 08:04 - Medications Medications: Current Medications Acetaminophen (Tylenol 325mg Tab) 650 mg PO Q4 PRN PRN Reason: Pain, Mild (1-3) Albuterol (Ventolin Hfa 90 Mcg/Actuation (8 G)) 2 puff IH Q6 PRN PRN Reason: Shortness of Breath Amitriptyline HCl (Elavil) 10 mg PO HS [facility] Last Admin: 04/18/18 21:59 Dose: 10 mg Docusate Sodium (Colace) 100 mg PO DAILY [facility] Last Admin: 04/19/18 09:14 Dose: 100 mg Enoxaparin Sodium (Lovenox) 40 mg SC DAILY [facility] PRN Reason: Protocol Last Admin: 04/19/18 09:19 Dose: Not Given Famotidine (Pepcid) 20 mg PO [facility] Last Admin: 04/18/18 22:00 Dose: 20 mg Gabapentin (Neurontin) 300 mg PO TID [facility] Last Admin: 04/19/18 09:13 Dose: 300 mg Home Med (Budesonide [Entocort Ec]) 9 mg PO DAILY [facility] Last Admin: 04/19/18 09:14 Dose: 9 mg Meropenem 1 gm/ Sodium (Chloride) 100 mls @ 100 mls/hr IVPB Q8 [facility] PRN Reason: Protocol Last Admin: 04/19/18 00:58 Dose: 100 mls/hr Levalbuterol HCl (Xopenex) 1.25 mg INH RQ4 [facility] Last Admin: 04/19/18 07:51 Dose: 1.25 mg Montelukast Sodium (Singulair) 10 mg PO [facility] Last Admin: 04/18/18 21:58 Dose: 10 mg Ondansetron HCl (Zofran Inj) 4 mg IVP Q6 PRN PRN Reason: Nausea/Vomiting Last Admin: 04/18/18 10:10 Dose: 4 mg Oxycodone/Acetaminophen (Percocet 5/325 Mg Tab) 2 tab PO Q6 PRN PRN Reason: Pain, severe (8-10) Stop: 04/21/18 18:02 Last Admin: 04/18/18 20:50 Dose: 2 tab Oxycodone/Acetaminophen (Percocet 5/325 Mg Tab) 1 tab PO Q6 PRN PRN Reason: Pain, moderate (4-7) Stop: 04/21/18 18:03 Prednisone (Prednisone Tab) 30 mg PO DAILY [facility] Last Admin: 04/19/18 09:13 Dose: 30 mg Fluticasone/Salmeterol (Advair Diskus 500/50) 1 puff INH Q12 [facility] Last Admin: 04/19/18 09:16 Dose: 1 puff - Labs Labs: 04/19/18 08:17 04/18/18 04:39 PT 12.4 Seconds (9.8-13.1) 04/13/18 23:00 INR 1.1 04/13/18 23:00 APTT 35.3 Seconds (25.6-37.1) 04/13/18 23:00 - Constitutional Appears: No Acute Distress - Head Exam Head Exam: NORMAL INSPECTION - Eye Exam Eye Exam: Normal appearance - ENT Exam ENT Exam: Mucous Membranes Moist - Neck Exam Neck Exam: Normal Inspection - Respiratory Exam Respiratory Exam: Wheezes, NORMAL BREATHING PATTERN. absent: Prolonged Expiratory Phase, Rales, Respiratory Distress - Cardiovascular Exam Cardiovascular Exam: REGULAR RHYTHM, +S1, +S2 Additional comments: right chest tube in place, dressing c/d/i - GI/Abdominal Exam GI & Abdominal Exam: Soft, Normal Bowel Sounds - Extremities Exam Extremities Exam: Full ROM, Normal Capillary Refill, Normal Inspection - Back Exam Back Exam: absent: CVA tenderness (L), CVA tenderness (R) - Neurological Exam Neurological Exam: Alert, Awake, CN II-XII Intact, Normal Gait, Oriented x3 Neuro motor strength exam: Left Upper Extremity: 5, Right Upper Extremity: 5, Left Lower Extremity: 5, Right Lower Extremity: 5 - Psychiatric Exam Psychiatric exam: Normal Affect - Skin Additional comments: Chronic vitiligo, diffuse Assessment and Plan - Assessment and Plan (Free Text) Assessment: A/P: 42 yr old M admitted for right sided pneumothorax with PMHx of Severe Persistent asthma, COPD, gastritis, pancreatitis, and Eosinophilic colitis. Right Lung Pneumothorax, POD # 6 s/p right chest tube placement -Thoracic Surgery Consulted, Dr. Yo, recommendations appreciated -Pain management: Oxycodone and Gabapentin 300 TID -Monitor pleura-vac output, vital signs and respiratory status -s/p lung biopsy 04/09/18; pending results -CT Chest 04/19: Residual small pneumothorax, right lateral soft tissue emphysema -Possible OR surgical intervention on Thursday for new chest tube vs repositioning Hospital acquired pneumonia due to Klebsiells, sputum culture positive for Klebsiells -Improved -Consult ID, Dr. Swain, recommendations appreciated -Sputum Cx: Growing Klebsiella, Sensitive to meropenem -continue with Meropenem 1gm Q8 (day 4), possible d/c after tomorrow -04/16/18 blood cx NGPD, 04/15/18 2x blood culture NGPD History of Severe Persistent asthma and COPD -Patient is wheezing R>L -continue home medications: Xopenex INH Q4, Fluticasone/salmeterol 1 puff INH BID -Pulmonary consult, Dr. Esposito, will follow recommendations -Prednisone tapered to 30mg PO QD Eosinophilic collitis -chronic, controlled -pain well controlled s/p superior hypogastric plexus block -Patient to follow up with Rheumatology, Dr. Brown as outpatient -Consult GI, Dr. Heart, recommendations appreciated (Spoke with GI: cleared for Prednisone PO daily) -Continue Famotidine 20mg PO QHS, Amitriptyline 10mg PO QHS and Budesonide 9mg PO QD History of systolic disfunction with reduced EF -Asymptomatic -Echo 12/15/17: EF 35-40% DVT prophylaxis -SCDs -Lovenox 40 SC daily
--- NOTE | 2018-04-19 10:38 | CP.PCM.PN ---
Subjective - Date & Time of Evaluation Date of Evaluation: 04/19/18 Time of Evaluation: 10:38 - Subjective Subjective: ID note- pt. seen and examined toady with DR.Pierre Salas at bedside as well. Pt. is now in med-surg floor. He denies any sob or any fever. denies any abd. pain. states developed loose stools last night but not watery. chest tube in place but ahs been clamped by CT surgeon nima last night as per pt. Objective - Vital Signs/Intake and Output Vital Signs (last 24 hours): Temp Pulse Resp BP Pulse Ox 98.4 F 89 20 116/76 98 04/19/18 08:04 04/19/18 08:04 04/19/18 08:04 04/19/18 08:04 04/19/18 08:04 - Medications Medications: Current Medications Acetaminophen (Tylenol 325mg Tab) 650 mg PO Q4 PRN PRN Reason: Pain, Mild (1-3) Albuterol (Ventolin Hfa 90 Mcg/Actuation (8 G)) 2 puff IH Q6 PRN PRN Reason: Shortness of Breath Amitriptyline HCl (Elavil) 10 mg PO HS [facility] Last Admin: 04/18/18 21:59 Dose: 10 mg Docusate Sodium (Colace) 100 mg PO DAILY [facility] Last Admin: 04/19/18 09:14 Dose: 100 mg Enoxaparin Sodium (Lovenox) 40 mg SC DAILY [facility] PRN Reason: Protocol Last Admin: 04/19/18 09:19 Dose: Not Given Famotidine (Pepcid) 20 mg PO HS [facility] Last Admin: 04/18/18 22:00 Dose: 20 mg Gabapentin (Neurontin) 300 mg PO TID [facility] Last Admin: 04/19/18 09:13 Dose: 300 mg Home Med (Budesonide [Entocort Ec]) 9 mg PO DAILY [facility] Last Admin: 04/19/18 09:14 Dose: 9 mg Meropenem 1 gm/ Sodium (Chloride) 100 mls @ 100 mls/hr IVPB Q8 [facility] PRN Reason: Protocol Last Admin: 04/19/18 00:58 Dose: 100 mls/hr Levalbuterol HCl (Xopenex) 1.25 mg INH RQ4 [facility] Last Admin: 04/19/18 07:51 Dose: 1.25 mg Montelukast Sodium (Singulair) 10 mg PO HS [facility] Last Admin: 04/18/18 21:58 Dose: 10 mg Ondansetron HCl (Zofran Inj) 4 mg IVP Q6 PRN PRN Reason: Nausea/Vomiting Last Admin: 04/18/18 10:10 Dose: 4 mg Oxycodone/Acetaminophen (Percocet 5/325 Mg Tab) 2 tab PO Q6 PRN PRN Reason: Pain, severe (8-10) Stop: 04/21/18 18:02 Last Admin: 04/18/18 20:50 Dose: 2 tab Oxycodone/Acetaminophen (Percocet 5/325 Mg Tab) 1 tab PO Q6 PRN PRN Reason: Pain, moderate (4-7) Stop: 04/21/18 18:03 Prednisone (Prednisone Tab) 30 mg PO DAILY [facility] Last Admin: 04/19/18 09:13 Dose: 30 mg Fluticasone/Salmeterol (Advair Diskus 500/50) 1 puff INH Q12 [facility] Last Admin: 04/19/18 09:16 Dose: 1 puff - Labs Labs: - Additional Findings Additional findings: - Constitutional Appears: Non-toxic, No Acute Distress - Head Exam Head Exam: ATRAUMATIC - Eye Exam Eye Exam: EOMI, PERRL - ENT Exam ENT Exam: Normal Oropharynx - Neck Exam Neck exam: Positive for: Full Rom - Respiratory Exam Respiratory Exam: NORMAL BREATHING PATTERN Additional comments: has right chest tube in place No wheezing good breath sounds heard b/l - Cardiovascular Exam Cardiovascular Exam: RRR, +S1, +S2 - GI/Abdominal Exam GI & Abdominal Exam: Normal Bowel Sounds, Soft Additional comments: NT, ND - Extremities Exam Additional comments: no edema B/l Le - Neurological Exam Neurological exam: Alert, Oriented x 3 Laboratory Results - last 72 hr 04/17/18 04/17/18 04/17/18 05:25 05:25 10:00 WBC 15.6 H RBC 3.68 L Hgb 10.5 L Hct 32.2 L MCV 87.7 MCH 28.6 MCHC 32.6 L RDW 16.0 H Plt Count 236 MPV 8.4 Neut % (Auto) 85.5 H Lymph % (Auto) 8.4 L [place] % (Auto) 6.0 Eos % (Auto) 0.0 Baso % (Auto) 0.1 Neut # (Auto) 13.4 H Lymph # (Auto) 1.3 [place] # (Auto) 0.9 H Eos # (Auto) 0.0 Baso # (Auto) 0.0 Sodium 142 Potassium 4.0 Chloride 110 H Carbon Dioxide 23 Anion Gap 13 BUN 16 Creatinine 0.7 L Est GFR ( Amer) > 60 Est GFR (Non-Af Amer) > 60 Random Glucose 120 H Calcium 8.3 L Total Bilirubin 0.2 AST 18 ALT 55 Alkaline Phosphatase 101 Total Protein 5.8 L Albumin 2.7 L Globulin 3.2 Albumin/Globulin Ratio 0.8 L Vancomycin Trough 11.5 H 04/18/18 04/18/18 04/19/18 04:39 04:39 08:17 WBC 12.7 H 11.4 H RBC 3.87 L 3.72 L Hgb 11.0 L 10.9 L Hct 34.1 L 32.4 L MCV 88.2 87.2 MCH 28.4 29.4 MCHC 32.2 L 33.7 RDW 15.9 H 15.4 H Plt Count 261 328 MPV 8.2 8.4 Neut % (Auto) 73.2 66.8 Lymph % (Auto) 18.0 L 21.2 [place] % (Auto) 7.2 8.3 Eos % (Auto) 1.5 3.6 Baso % (Auto) 0.1 0.1 Neut # (Auto) 9.3 H 7.6 H Lymph # (Auto) 2.3 2.4 [place] # (Auto) 0.9 H 1.0 H Eos # (Auto) 0.2 0.4 Baso # (Auto) 0.0 0.0 Sodium 142 Potassium 4.5 Chloride 108 H Carbon Dioxide 27 Anion Gap 12 BUN 17 Creatinine 0.8 Est GFR ( Amer) > 60 Est GFR (Non-Af Amer) > 60 Random Glucose 98 Calcium 8.6 Total Bilirubin AST ALT Alkaline Phosphatase Total Protein Albumin Globulin Albumin/Globulin Ratio Vancomycin Trough Microbiology 04/16/18 20:10 Blood-Venous Blood Culture - Preliminary NO GROWTH AFTER 48 HOURS 04/15/18 18:55 Blood Blood Culture - Preliminary NO GROWTH AFTER 3 DAYS 04/15/18 18:45 Blood Blood Culture - Preliminary NO GROWTH AFTER 3 DAYS 04/15/18 19:45 Urine,Clean Catch Urine Culture - Final No Growth (<1,000 CFU/ML) 04/15/18 19:45 Sputum Gram Stain - Final 04/15/18 19:45 Sputum Sputum Culture - Final Klebsiella Pneumoniae Ssp Pneu 04/14/18 10:45 Nose MRSA Culture (Admit) - Final MRSA NOT DETECTED Assessment and Plan (1) Pneumothorax Status: Acute (2) COPD (chronic obstructive pulmonary disease) Status: Acute (3) Eosinophilic colitis Status: Acute - Assessment and Plan (Free Text) Assessment: A/P- 42 year old male with extensive medical history including multiple bouts of abdominal pian, pancreatitis, colitis, gastritis, pulmonary nodules, copd has had extensive work up done and was diagnosed with eosinophilic colitis via colonoscopy . recent lung biopsy for further eval of the pulm nodules and developed PTC post that is now in ICU with right sided chest tube. afebrile Leukocytosis trending down sputum cx- Klebsiella pneumonia ( pansensitive) UA- neg blood cx- neg x 2 urine cx- neg PLan- advise to continue with IV meropenm since the VICENTE of the klebsiella is very good to this day #4. still has chest tube in place. lung biopsy result pending. await repeat chest CT result. if chest tube needs to remain in place then would advise to continue with IV meropenem for now. advise to place on probiotics while on IV abx. Pt. verbalizes full understanding of all above and agrees with above plan of care.
[2018-04-19] MEDS ORDERED: Sodium Chloride 0.9% 50 ML IV ONE (11:45)
[2018-04-19] MEDS ORDERED: Iohexol 300 100 ML IJ ONE (11:45)
[2018-04-19] MEDS: Oxycodone/Acetaminophen 5/325 mg Tab PO PRN ×2 (12:57→19:10)
--- NOTE | 2018-04-19 13:41 | CT ---
Date of service: 04/19/2018 PROCEDURE: CT Chest with contrast HISTORY: eval of pneumo s/p CT insertion COMPARISON: CT chest from 04/14/2018. TECHNIQUE: Contiguous axial images were obtained through the chest with intravenous contrast enhancement. Sagittal and coronal reconstructions were performed. IV contrast: 95 cc Omnipaque 300 Radiation dose (DLP): 243.41 mGy-cm. This CT exam was performed using one or more of the following dose reduction techniques: Automated exposure control, adjustment of the mA and/or kV according to patient size, and/or use of iterative reconstruction technique. FINDINGS: LUNGS: The lungs are well inflated. There is redemonstration of multiple nodules with irregular margins, the largest in the peripheral right lower lobe measures 2.4 x 1.9 cm. There is new confluent airspace disease in the posterior basal segment of the left lower lobe. No endobronchial lesions. MEDIASTINUM: The aorta is normal in caliber. No aneurysm or dissection. Normal sized heart. Main pulmonary artery unremarkable. No vascular congestion. No pathologic lymphadenopathy. PLEURA: Small bilateral pleural effusions, worse on the right. Stable position of the right chest tube directed medially. Interval improvement with residual small right pneumothorax. BONES: No fracture. No destructive lesion. Within normal limits for the patient's age. UPPER ABDOMEN: Grossly unremarkable. OTHER FINDINGS: Redemonstration of extensive soft tissue emphysema along the right lateral chest wall extending into the supraclavicular and lateral neck soft tissues. IMPRESSION: 1. Stable position of right chest tube, improving right pneumothorax with a residual small pneumothorax. 2. Interval development of confluent airspace disease in the left lung base which may represent pneumonia. Follow-up is advised. 3. Little interval change in known pulmonary nodules, the largest in the right lower lobe measures 2.4 x 1.9 cm. 4. Redemonstration of extensive right lateral chest wall soft tissue emphysema.
--- NOTE | 2018-04-19 14:48 | PQF ---
PROVIDER RESPONSE TEXT: Hospital acquired pneumonia due to Klebsiells, sputum culture positive for Klebsiells REVIEWER QUERY TEXT: Cause and Effect Relationship Please clarify in documentation the relationship, if any, between HOSPITAL ACQUIRED PNEUMONIA and SPU COTY CULTURE POSITIVE FOR KLEBSIELLA: Such as: -- Conditions are due to or associated : Klebsiella Pneumonia -- Unrelated to each other -- Other, please specify 04/19/18 PN: Hospital acquired pneumonia , sputum culture positive for Klebsiella The patient's Clinical Indicators include: Admitted with pneumothorax s/p lung biopsy. CXR: Interval improvement in the size of the prior moderate sized right pneumothorax. -less than 5 pe rcent trace residual at right apex likely persisting. Interval insertion right chest tube 04/15: TEMP 101.2, 98.5 HR: 101, 98, 111, 127, 126, 111, 102, 96 BP: 103/56, 95/56, 95/60, 98/64, 100/72, 120/80, 98/69 R: 21, 20, 19, 23, 33, 30, 22, 21, 23, 24 WBC 10.5 , lactate 1.8-> 2.5 Treated with IVAB Query created by: Sol Borges on 04/19/2018 1:53 PM Electronically signed by: Amarilis Blackwell 04/19/2018 2:44 PM
--- NOTE | 2018-04-19 15:28 | CP.PCM.PN ---
Subjective - Date & Time of Evaluation Date of Evaluation: 04/19/18 Time of Evaluation: 15:14 - Subjective Subjective: Pt s/e and rounded with residents. d/w Dr. Campos and her residents. vss. [id number] chest tube: on suction shows + intrapleural pressure. ct chest this am: small residual pneumothorax with basically undiminished subcutaneous emphysema suggestive of a pneumothorax with actively leaking hole, ie persistent air leak. Will require a new chest tube directed to the apex. We will perform the procedure in the OR under fluoroscopic guidance. d/w patient who accepted the porcedure. a/p: 1. Samll pneumothorax,with persistent air leak. 2. a Tube thoracostomy on Thursday. Objective - Vital Signs/Intake and Output Vital Signs (last 24 hours): Temp Pulse Resp BP Pulse Ox 98.4 F 89 20 116/76 98 04/19/18 08:04 04/19/18 08:04 04/19/18 08:04 04/19/18 08:04 04/19/18 08:04 - Medications Medications: Current Medications Acetaminophen (Tylenol 325mg Tab) 650 mg PO Q4 PRN PRN Reason: Pain, Mild (1-3) Albuterol (Ventolin Hfa 90 Mcg/Actuation (8 G)) 2 puff IH Q6 PRN PRN Reason: Shortness of Breath Amitriptyline HCl (Elavil) 10 mg PO HS [facility] Last Admin: 04/18/18 21:59 Dose: 10 mg Docusate Sodium (Colace) 100 mg PO DAILY [facility] Last Admin: 04/19/18 09:14 Dose: 100 mg Enoxaparin Sodium (Lovenox) 40 mg SC DAILY [facility] PRN Reason: Protocol Last Admin: 04/19/18 09:19 Dose: Not Given Famotidine (Pepcid) 20 mg PO HS [facility] Last Admin: 04/18/18 22:00 Dose: 20 mg Gabapentin (Neurontin) 300 mg PO TID [facility] Last Admin: 04/19/18 13:21 Dose: 300 mg Home Med (Budesonide [Entocort Ec]) 9 mg PO DAILY [facility] Last Admin: 04/19/18 09:14 Dose: 9 mg Meropenem 1 gm/ Sodium (Chloride) 100 mls @ 100 mls/hr IVPB Q8 [facility] PRN Reason: Protocol Last Admin: 04/19/18 12:21 Dose: 100 mls/hr Levalbuterol HCl (Xopenex) 1.25 mg INH RQ4 [facility] Last Admin: 04/19/18 11:30 Dose: Not Given Montelukast Sodium (Singulair) 10 mg PO HS [facility] Last Admin: 04/18/18 21:58 Dose: 10 mg Ondansetron HCl (Zofran Inj) 4 mg IVP Q6 PRN PRN Reason: Nausea/Vomiting Last Admin: 04/18/18 10:10 Dose: 4 mg Oxycodone/Acetaminophen (Percocet 5/325 Mg Tab) 2 tab PO Q6 PRN PRN Reason: Pain, severe (8-10) Stop: 04/21/18 18:02 Last Admin: 04/19/18 12:57 Dose: 2 tab Oxycodone/Acetaminophen (Percocet 5/325 Mg Tab) 1 tab PO Q6 PRN PRN Reason: Pain, moderate (4-7) Stop: 04/21/18 18:03 Prednisone (Prednisone Tab) 30 mg PO DAILY [facility] Last Admin: 04/19/18 09:13 Dose: 30 mg Fluticasone/Salmeterol (Advair Diskus 500/50) 1 puff INH Q12 [facility] Last Admin: 04/19/18 09:16 Dose: 1 puff - Labs Labs: 04/19/18 08:17 04/18/18 04:39 PT 12.4 Seconds (9.8-13.1) 04/13/18 23:00 INR 1.1 04/13/18 23:00 APTT 35.3 Seconds (25.6-37.1) 04/13/18 23:00
[2018-04-19] MEDS: Saccharomyces Boulardi 250 mg Cap PO SCH (17:16)
[2018-04-20] MEDS: Meropenem 1 GM in Sodium Chloride 0.9% 100 ML IVPB SCH ×3 (00:30→16:00)
[2018-04-20] MEDS: Oxycodone/Acetaminophen 5/325 mg Tab PO PRN ×4 (02:31→22:01)
[2018-04-20] MEDS: Levalbuterol 1.25 MG/3 ML Inhal Soln UD INH SCH ×7 (04:40→23:30)
[2018-04-20 06:34] LABS: BASO % 0.1 % (0.0-2.0); EOS # 0.9 K/uL (0.0-0.7); EOS % 7.6 % (0.0-4.0); HEMOGLOBIN 12.7 g/dL (12.0-18.0); LYMPH # 3.1 K/uL (1.0-4.3); LYMPH % 27.5 % (20.0-40.0); MEAN CELL VOLUME 88.6 fl (80.0-94.0); MEAN CORPUSCULAR HEMOGLOBIN 28.2 pg (27.0-31.0); MEAN CORPUSCULAR HGB CONC 31.9 g/dL (33.0-37.0); MEAN PLATELET VOLUME 8.2 fl (7.2-11.7); MONO # 1.3 K/uL (0.0-0.8); MONO % 11.6 % (0.0-10.0); NEUT % 53.2 % (50.0-75.0); RBC 4.5 Mil/uL (4.40-5.90); RED CELL DISTRIBUTION WIDTH 15.9 % (11.5-14.5); WHITE BLOOD COUNT 11.3 K/uL (4.8-10.8)
--- NOTE | 2018-04-20 07:43 | CP.PCM.PN ---
Subjective - Date & Time of Evaluation Date of Evaluation: 04/20/18 Time of Evaluation: 07:37 - Subjective Subjective: Thoracic Surgery Dr. Yo Pt S&E @bedside. NAEO. Objective - Vital Signs/Intake and Output Vital Signs (last 24 hours): Temp Pulse Resp BP Pulse Ox 97.4 F L 85 20 121/81 97 04/19/18 23:46 04/19/18 23:46 04/19/18 23:46 04/19/18 23:46 04/19/18 23:46 - Medications Medications: Current Medications Acetaminophen (Tylenol 325mg Tab) 650 mg PO Q4 PRN PRN Reason: Pain, Mild (1-3) Albuterol (Ventolin Hfa 90 Mcg/Actuation (8 G)) 2 puff IH Q6 PRN PRN Reason: Shortness of Breath Amitriptyline HCl (Elavil) 10 mg PO HS [facility] Last Admin: 04/19/18 21:01 Dose: 10 mg Docusate Sodium (Colace) 100 mg PO DAILY [facility] Last Admin: 04/19/18 09:14 Dose: 100 mg Enoxaparin Sodium (Lovenox) 40 mg SC DAILY [facility] PRN Reason: Protocol Last Admin: 04/19/18 09:19 Dose: Not Given Famotidine (Pepcid) 20 mg PO HS [facility] Last Admin: 04/19/18 21:01 Dose: 20 mg Gabapentin (Neurontin) 300 mg PO TID [facility] Last Admin: 04/19/18 17:13 Dose: 300 mg Home Med (Budesonide [Entocort Ec]) 9 mg PO DAILY [facility] Last Admin: 04/19/18 09:14 Dose: 9 mg Meropenem 1 gm/ Sodium (Chloride) 100 mls @ 100 mls/hr IVPB Q8 [facility] PRN Reason: Protocol Last Admin: 04/20/18 00:30 Dose: 100 mls/hr Levalbuterol HCl (Xopenex) 1.25 mg INH RQ4 [facility] Last Admin: 04/20/18 07:31 Dose: Not Given Montelukast Sodium (Singulair) 10 mg PO HS [facility] Last Admin: 04/19/18 21:01 Dose: 10 mg Ondansetron HCl (Zofran Inj) 4 mg IVP Q6 PRN PRN Reason: Nausea/Vomiting Last Admin: 04/18/18 10:10 Dose: 4 mg Oxycodone/Acetaminophen (Percocet 5/325 Mg Tab) 2 tab PO Q6 PRN PRN Reason: Pain, severe (8-10) Stop: 04/21/18 18:02 Last Admin: 04/20/18 02:31 Dose: 2 tab Oxycodone/Acetaminophen (Percocet 5/325 Mg Tab) 1 tab PO Q6 PRN PRN Reason: Pain, moderate (4-7) Stop: 04/21/18 18:03 Prednisone (Prednisone Tab) 30 mg PO DAILY [facility] Last Admin: 04/19/18 09:13 Dose: 30 mg Saccharomyces Boulardii (Florastor) 250 mg PO BID [facility] Fluticasone/Salmeterol (Advair Diskus 500/50) 1 puff INH Q12 [facility] Last Admin: 04/19/18 21:01 Dose: 1 puff - Labs Labs: 04/20/18 05:40 04/18/18 04:39 PT 12.4 Seconds (9.8-13.1) 04/13/18 23:00 INR 1.1 04/13/18 23:00 APTT 35.3 Seconds (25.6-37.1) 04/13/18 23:00 - Constitutional Appears: Non-toxic, No Acute Distress - Head Exam Head Exam: NORMAL INSPECTION - Eye Exam Eye Exam: Normal appearance - ENT Exam ENT Exam: Mucous Membranes Moist - Respiratory Exam Respiratory Exam: NORMAL BREATHING PATTERN. absent: Accessory Muscle Use, Respiratory Distress - Cardiovascular Exam Cardiovascular Exam: REGULAR RHYTHM. absent: Bradycardia, Tachycardia Additional comments: R CT in place, on wall sxn, no leak. dressing c/d/i - Extremities Exam Extremities Exam: Normal Inspection - Neurological Exam Neurological Exam: Alert, Awake, Oriented x3 - Psychiatric Exam Psychiatric exam: Normal Affect, Normal Mood - Skin Skin Exam: Dry, Intact, Normal Color, Warm Assessment and Plan - Assessment and Plan (Free Text) Assessment: 42 y/o M w/ residual R PTX POD# 7 s/p bedside chest tube placement - OR Thursday for chest tube placement under fluoro - NPO after midnight - cont R CT to suction - daily CXR - cont pain management - encourage OOB to chair/Amb/IS use - GI/DVT PPx Pt discussed w/ Dr. Sanaz Shin DO PGY3
--- NOTE | 2018-04-20 08:30 | CP.PCM.CON ---
History of Present Illness - History of Present Illness History of Present Illness: Psychiatry consult Client Project Coordinator attempted to see patient but he was irritable and not agreeable to talking w/ underwriter solicitation director, stating that he does not want to be disturbed while eating his breakfast. Client Project Coordinator offered to see patient at a later time if he was agreeable, but he was ambivalent about talking w/ underwriter solicitation director. Please call for psychiatric interview if patient is agreeable at a later time. Past Patient History - Infectious Disease Hx of Infectious Diseases: None - Past Medical History & Family History Past Medical History?: Yes - Past Social History Smoking Status: Never Smoked Home Situation {Lives}: With Family - CARDIAC Hx Congestive Heart Failure: Yes - PULMONARY Hx Asthma: Yes Hx Chronic Obstructive Pulmonary Disease (COPD): Yes Hx Pneumonia: Yes - NEUROLOGICAL Hx Neurological Disorder: No - HEENT Hx HEENT Problems: No - RENAL Hx Chronic Kidney Disease: No - ENDOCRINE/METABOLIC Hx Endocrine Disorders: No - HEMATOLOGICAL/ONCOLOGICAL Hx Blood Disorders: No - INTEGUMENTARY Hx Dermatological Problems: No - MUSCULOSKELETAL/RHEUMATOLOGICAL Hx Falls: No - GASTROINTESTINAL Hx Diverticulitis: Yes Hx Gastritis: Yes Hx Pancreatitis: Yes - GENITOURINARY/GYNECOLOGICAL Hx Genitourinary Disorders: No - PSYCHIATRIC Hx Substance Use: No - SURGICAL HISTORY Hx Surgeries: Yes Other/Comment: I&D LEG ABSCESS - ANESTHESIA Hx Anesthesia: Yes Hx Anesthesia Reactions: No Hx Malignant Hyperthermia: No Meds Allergies/Adverse Reactions: Allergies Allergy/AdvReac Type Severity Reaction Status Date / Time wheat Allergy PAIN Verified 04/07/18 10:57 - Medications Medications: Current Medications Acetaminophen (Tylenol 325mg Tab) 650 mg PO Q4 PRN PRN Reason: Pain, Mild (1-3) Albuterol (Ventolin Hfa 90 Mcg/Actuation (8 G)) 2 puff IH Q6 PRN PRN Reason: Shortness of Breath Amitriptyline HCl (Elavil) 10 mg PO HS [facility] Last Admin: 04/19/18 21:01 Dose: 10 mg Docusate Sodium (Colace) 100 mg PO DAILY [facility] Last Admin: 04/19/18 09:14 Dose: 100 mg Enoxaparin Sodium (Lovenox) 40 mg SC DAILY [facility] PRN Reason: Protocol Last Admin: 04/19/18 09:19 Dose: Not Given Famotidine (Pepcid) 20 mg PO HS [facility] Last Admin: 04/19/18 21:01 Dose: 20 mg Gabapentin (Neurontin) 300 mg PO TID [facility] Last Admin: 04/19/18 17:13 Dose: 300 mg Home Med (Budesonide [Entocort Ec]) 9 mg PO DAILY [facility] Last Admin: 04/19/18 09:14 Dose: 9 mg Meropenem 1 gm/ Sodium (Chloride) 100 mls @ 100 mls/hr IVPB Q8 [facility] PRN Reason: Protocol Last Admin: 04/20/18 00:30 Dose: 100 mls/hr Levalbuterol HCl (Xopenex) 1.25 mg INH RQ4 [facility] Last Admin: 04/20/18 08:14 Dose: 1.25 mg Montelukast Sodium (Singulair) 10 mg PO HS [facility] Last Admin: 04/19/18 21:01 Dose: 10 mg Ondansetron HCl (Zofran Inj) 4 mg IVP Q6 PRN PRN Reason: Nausea/Vomiting Last Admin: 04/18/18 10:10 Dose: 4 mg Oxycodone/Acetaminophen (Percocet 5/325 Mg Tab) 2 tab PO Q6 PRN PRN Reason: Pain, severe (8-10) Stop: 04/21/18 18:02 Last Admin: 04/20/18 02:31 Dose: 2 tab Oxycodone/Acetaminophen (Percocet 5/325 Mg Tab) 1 tab PO Q6 PRN PRN Reason: Pain, moderate (4-7) Stop: 04/21/18 18:03 Prednisone (Prednisone Tab) 30 mg PO DAILY [facility] Last Admin: 04/19/18 09:13 Dose: 30 mg Saccharomyces Boulardii (Florastor) 250 mg PO BID [facility] Fluticasone/Salmeterol (Advair Diskus 500/50) 1 puff INH Q12 [facility] Last Admin: 04/19/18 21:01 Dose: 1 puff Results - Vital Signs Recent Vital Signs: Last Vital Signs Temp 97.9 F 04/20/18 08:09 Pulse 68 04/20/18 08:09 Resp 18 04/20/18 08:09 BP 106/68 04/20/18 08:09 Pulse Ox 96 04/20/18 08:09 - Labs Result Diagrams: 04/20/18 05:40 04/18/18 04:39 Labs: Laboratory Results - last 24 hr 04/19/18 04/20/18 08:17 05:40 WBC 11.4 H 11.3 H RBC 3.72 L 4.50 Hgb 10.9 L 12.7 Hct 32.4 L 39.8 MCV 87.2 88.6 MCH 29.4 28.2 MCHC 33.7 31.9 L RDW 15.4 H 15.9 H Plt Count 328 378 MPV 8.4 8.2 Neut % (Auto) 66.8 53.2 Lymph % (Auto) 21.2 27.5 [place] % (Auto) 8.3 11.6 H Eos % (Auto) 3.6 7.6 H Baso % (Auto) 0.1 0.1 Neut # (Auto) 7.6 H 6.0 Lymph # (Auto) 2.4 3.1 [place] # (Auto) 1.0 H 1.3 H Eos # (Auto) 0.4 0.9 H Baso # (Auto) 0.0 0.0
--- NOTE | 2018-04-20 08:31 | CP.PCM.PN ---
Subjective - Date & Time of Evaluation Date of Evaluation: 04/20/18 Time of Evaluation: 07:30 - Subjective Subjective: Patient seen and examined this morning at bedside, NAD. Patient was given Ativan last night due to agitation and anxiety, reports good night sleep after the medication. Denies any dizziness, chest pain, SOB or abdominal pain. Urinating freely , ambulating. - POD # 7 s/p right chest tube placement. Possible new chest tube placement on . Objective - Vital Signs/Intake and Output Vital Signs (last 24 hours): Temp Pulse Resp BP Pulse Ox 97.9 F 68 18 106/68 96 04/20/18 08:09 04/20/18 08:09 04/20/18 08:09 04/20/18 08:09 04/20/18 08:09 - Medications Medications: Current Medications Acetaminophen (Tylenol 325mg Tab) 650 mg PO Q4 PRN PRN Reason: Pain, Mild (1-3) Albuterol (Ventolin Hfa 90 Mcg/Actuation (8 G)) 2 puff IH Q6 PRN PRN Reason: Shortness of Breath Amitriptyline HCl (Elavil) 10 mg PO HS [facility] Last Admin: 04/19/18 21:01 Dose: 10 mg Docusate Sodium (Colace) 100 mg PO DAILY [facility] Last Admin: 04/19/18 09:14 Dose: 100 mg Enoxaparin Sodium (Lovenox) 40 mg SC DAILY [facility] PRN Reason: Protocol Last Admin: 04/19/18 09:19 Dose: Not Given Famotidine (Pepcid) 20 mg PO HS [facility] Last Admin: 04/19/18 21:01 Dose: 20 mg Gabapentin (Neurontin) 300 mg PO TID [facility] Last Admin: 04/19/18 17:13 Dose: 300 mg Home Med (Budesonide [Entocort Ec]) 9 mg PO DAILY [facility] Last Admin: 04/19/18 09:14 Dose: 9 mg Meropenem 1 gm/ Sodium (Chloride) 100 mls @ 100 mls/hr IVPB Q8 [facility] PRN Reason: Protocol Last Admin: 04/20/18 00:30 Dose: 100 mls/hr Levalbuterol HCl (Xopenex) 1.25 mg INH RQ4 [facility] Last Admin: 04/20/18 08:14 Dose: 1.25 mg Montelukast Sodium (Singulair) 10 mg PO HS [facility] Last Admin: 04/19/18 21:01 Dose: 10 mg Ondansetron HCl (Zofran Inj) 4 mg IVP Q6 PRN PRN Reason: Nausea/Vomiting Last Admin: 04/18/18 10:10 Dose: 4 mg Oxycodone/Acetaminophen (Percocet 5/325 Mg Tab) 2 tab PO Q6 PRN PRN Reason: Pain, severe (8-10) Stop: 04/21/18 18:02 Last Admin: 04/20/18 02:31 Dose: 2 tab Oxycodone/Acetaminophen (Percocet 5/325 Mg Tab) 1 tab PO Q6 PRN PRN Reason: Pain, moderate (4-7) Stop: 04/21/18 18:03 Prednisone (Prednisone Tab) 30 mg PO DAILY [facility] Last Admin: 04/19/18 09:13 Dose: 30 mg Saccharomyces Boulardii (Florastor) 250 mg PO BID [facility] Fluticasone/Salmeterol (Advair Diskus 500/50) 1 puff INH Q12 [facility] Last Admin: 04/19/18 21:01 Dose: 1 puff - Labs Labs: 04/20/18 05:40 04/18/18 04:39 PT 12.4 Seconds (9.8-13.1) 04/13/18 23:00 INR 1.1 04/13/18 23:00 APTT 35.3 Seconds (25.6-37.1) 04/13/18 23:00 - Constitutional Appears: No Acute Distress - Head Exam Head Exam: NORMAL INSPECTION - Eye Exam Eye Exam: EOMI, Normal appearance, PERRL Pupil Exam: NORMAL ACCOMODATION, PERRL - ENT Exam ENT Exam: Mucous Membranes Moist - Neck Exam Neck Exam: Full ROM, Normal Inspection - Respiratory Exam Respiratory Exam: Decreased Breath Sounds, Wheezes, NORMAL BREATHING PATTERN. absent: Accessory Muscle Use, Chest Wall Tenderness Additional comments: POD 7 s/p Right chest tube placement. dressing c/d/i - Cardiovascular Exam Cardiovascular Exam: REGULAR RHYTHM, +S1, +S2 - GI/Abdominal Exam GI & Abdominal Exam: Soft, Normal Bowel Sounds. absent: Distended, Tenderness, Pulsatile Mass, Rebound - Extremities Exam Extremities Exam: Full ROM, Normal Capillary Refill, Normal Inspection - Back Exam Back Exam: NORMAL INSPECTION. absent: CVA tenderness (L), CVA tenderness (R) - Neurological Exam Neurological Exam: Alert, Awake, CN II-XII Intact, Normal Gait, Oriented x3 Neuro motor strength exam: Left Upper Extremity: 5, Right Upper Extremity: 5, Left Lower Extremity: 5, Right Lower Extremity: 5 - Psychiatric Exam Psychiatric exam: Normal Affect - Skin Additional comments: Vitiligo diffuse Assessment and Plan - Assessment and Plan (Free Text) Assessment: A/P: 42 yr old M admitted for right sided pneumothorax with PMHx of Severe Persistent asthma, COPD, gastritis, pancreatitis, and Eosinophilic colitis. Right Lung Pneumothorax, POD # 7 s/p right chest tube placement -Thoracic Surgery Consulted, Dr. Yo, recommendations appreciated -Pain management: Oxycodone and Gabapentin 300 TID -Monitor pleura-vac output, vital signs and respiratory status -s/p lung biopsy 04/09/18; pending results -CT Chest 04/19: Residual small pneumothorax, right lateral soft tissue emphysema -Possible OR surgical intervention on Thursday for new chest tube placement ( NPO past midnight) Hospital acquired pneumonia due to Klebsiells, sputum culture positive for Klebsiells -Improved -Consult ID, Dr. Swain, recommendations appreciated -Sputum Cx: Growing Klebsiella, Sensitive to meropenem -continue with Meropenem 1gm Q8 (day 5) -C/w Probiotics -04/16/18 blood cx No growth per day, 04/15/18 2x blood culture No growth per day History of Severe Persistent asthma and COPD -Patient is wheezing R>L -continue home medications: Xopenex INH Q4, Fluticasone/salmeterol 1 puff INH BID -Pulmonary consult, Dr. Esposito, will follow recommendations -C/w Prednisone 30mg PO QD Eosinophilic collitis -chronic, controlled -pain well controlled s/p superior hypogastric plexus block -Patient to follow up with Rheumatology, Dr. Brown as outpatient -Consult GI, Dr. Heart, recommendations appreciated (Spoke with GI: cleared for Prednisone PO daily) -Continue Famotidine 20mg PO QHS, Amitriptyline 10mg PO QHS and Budesonide 9mg PO QD Depressed/Labile mood - Denies SI/HI - Consult Psych, follow up recommendations History of systolic disfunction with reduced EF -Asymptomatic -Echo 12/15/17: EF 35-40% DVT prophylaxis -SCDs -Lovenox 40 SC daily
[2018-04-20] MEDS: Fluticasone-Salmeterol 500-50mcg Diskus INH SCH ×2 (10:15→22:01)
[2018-04-20] MEDS: Saccharomyces Boulardi 250 mg Cap PO SCH ×2 (10:17→16:00)
[2018-04-20] MEDS: Enoxaparin 40 mg Syringe SC SCH (10:19)
[2018-04-20] MEDS: BUDESONIDE 9 MG PO SCH (16:00)
[2018-04-21] MEDS: Meropenem 1 GM in Sodium Chloride 0.9% 100 ML IVPB SCH ×3 (00:17→17:18)
[2018-04-21] MEDS: Levalbuterol 1.25 MG/3 ML Inhal Soln UD INH SCH ×6 (03:55→23:14)
[2018-04-21 06:39] LABS: BASO % 0.1 % (0.0-2.0); EOS # 0.7 K/uL (0.0-0.7); EOS % 5.6 % (0.0-4.0); LYMPH # 2.7 K/uL (1.0-4.3); LYMPH % 20.9 % (20.0-40.0); MEAN CELL VOLUME 87.6 fl (80.0-94.0); MEAN CORPUSCULAR HEMOGLOBIN 28.7 pg (27.0-31.0); MEAN CORPUSCULAR HGB CONC 32.8 g/dL (33.0-37.0); MEAN PLATELET VOLUME 8.2 fl (7.2-11.7); MONO # 1.4 K/uL (0.0-0.8); MONO % 11.1 % (0.0-10.0); NEUT # 8.1 K/uL (1.8-7.0); NEUT % 62.3 % (50.0-75.0); RBC 4.17 Mil/uL (4.40-5.90); RED CELL DISTRIBUTION WIDTH 15.7 % (11.5-14.5); WHITE BLOOD COUNT 13.1 K/uL (4.8-10.8)
[2018-04-21 06:56] LABS: INR 1.1; PROTHROMBIN TIME 11.8 Seconds (9.8-13.1)
[2018-04-21 06:58] LABS: PARTIAL THROMBOPLASTIN TIME 27.9 Seconds (25.6-37.1)
[2018-04-21 07:09] LABS: BLOOD UREA NITROGEN 21 mg/dl (9-20); CALCIUM 8.4 mg/dL (8.4-10.2); GFR AFRICAN-AMERICAN > 60; GFR NON-AFRICAN AMERICAN > 60
--- NOTE | 2018-04-21 08:09 | CP.PCM.PN ---
Subjective - Date & Time of Evaluation Date of Evaluation: 04/21/18 Time of Evaluation: 07:15 - Subjective Subjective: Patient seen and examined this morning at the bedside. NAD, no acute event overnight, patient is aware of possible surgical intervention today (new chest tube placement). NPO, no Lovenox this morning. Denies any SOB, dizziness, chest pain, abdominal pain, urinary symptoms of f/c/n/v/d. - POD # 8, s/p right chest tube placement. Possible new chest tube placement on 04/21. Objective - Vital Signs/Intake and Output Vital Signs (last 24 hours): Temp Pulse Resp BP Pulse Ox 97.6 F 80 19 101/66 96 04/21/18 00:41 04/21/18 00:41 04/21/18 00:41 04/21/18 00:41 04/21/18 00:41 - Medications Medications: Current Medications Acetaminophen (Tylenol 325mg Tab) 650 mg PO Q4 PRN PRN Reason: Pain, Mild (1-3) Albuterol (Ventolin Hfa 90 Mcg/Actuation (8 G)) 2 puff IH Q6 PRN PRN Reason: Shortness of Breath Amitriptyline HCl (Elavil) 10 mg PO HS [facility] Last Admin: 04/20/18 22:02 Dose: 10 mg Docusate Sodium (Colace) 100 mg PO DAILY [facility] Last Admin: 04/20/18 10:17 Dose: 100 mg Enoxaparin Sodium (Lovenox) 40 mg SC DAILY [facility] PRN Reason: Protocol Last Admin: 04/20/18 10:19 Dose: Not Given Famotidine (Pepcid) 20 mg PO HS [facility] Last Admin: 04/20/18 22:02 Dose: 20 mg Gabapentin (Neurontin) 300 mg PO TID [facility] Last Admin: 04/20/18 12:13 Dose: 300 mg Home Med (Budesonide [Entocort Ec]) 9 mg PO DAILY [facility] Last Admin: 04/20/18 16:00 Dose: 9 mg Meropenem 1 gm/ Sodium (Chloride) 100 mls @ 100 mls/hr IVPB Q8 [facility] PRN Reason: Protocol Last Admin: 04/21/18 00:17 Dose: 100 mls/hr Levalbuterol HCl (Xopenex) 1.25 mg INH RQ4 [facility] Last Admin: 04/21/18 07:55 Dose: 1.25 mg Montelukast Sodium (Singulair) 10 mg PO HS [facility] Last Admin: 04/20/18 22:02 Dose: 10 mg Ondansetron HCl (Zofran Inj) 4 mg IVP Q6 PRN PRN Reason: Nausea/Vomiting Last Admin: 04/18/18 10:10 Dose: 4 mg Oxycodone/Acetaminophen (Percocet 5/325 Mg Tab) 2 tab PO Q6 PRN PRN Reason: Pain, severe (8-10) Stop: 04/21/18 18:02 Last Admin: 04/20/18 22:01 Dose: 2 tab Oxycodone/Acetaminophen (Percocet 5/325 Mg Tab) 1 tab PO Q6 PRN PRN Reason: Pain, moderate (4-7) Stop: 04/21/18 18:03 Prednisone (Prednisone Tab) 30 mg PO DAILY [facility] Last Admin: 04/20/18 10:17 Dose: 30 mg Saccharomyces Boulardii (Florastor) 250 mg PO BID [facility] Last Admin: 04/20/18 16:00 Dose: 250 mg Fluticasone/Salmeterol (Advair Diskus 500/50) 1 puff INH Q12 [facility] Last Admin: 04/20/18 22:01 Dose: 1 puff - Labs Labs: 04/21/18 05:40 04/21/18 05:40 PT 11.8 Seconds (9.8-13.1) 04/21/18 05:40 INR 1.1 04/21/18 05:40 APTT 27.9 Seconds (25.6-37.1) 04/21/18 05:40 - Constitutional Appears: No Acute Distress - Head Exam Head Exam: NORMAL INSPECTION - Eye Exam Eye Exam: EOMI, Normal appearance, PERRL Pupil Exam: NORMAL ACCOMODATION - ENT Exam ENT Exam: Mucous Membranes Moist - Neck Exam Neck Exam: Full ROM, Normal Inspection - Respiratory Exam Respiratory Exam: Wheezes (L>R), NORMAL BREATHING PATTERN. absent: Accessory Muscle Use, Chest Wall Tenderness, Decreased Breath Sounds, Respiratory Distress Additional comments: Right Lung Pneumothorax, POD # 8 s/p right chest tube placement Dressing for chest tube c/d/i. - Cardiovascular Exam Cardiovascular Exam: REGULAR RHYTHM, +S1, +S2 - GI/Abdominal Exam GI & Abdominal Exam: Soft, Normal Bowel Sounds. absent: Tenderness, Organomegaly - Extremities Exam Extremities Exam: Normal Capillary Refill, Normal Inspection. absent: Pedal Edema, Tenderness - Back Exam Back Exam: NORMAL INSPECTION. absent: CVA tenderness (L), CVA tenderness (R) - Neurological Exam Neurological Exam: Alert, Awake, CN II-XII Intact, Normal Gait, Oriented x3 Neuro motor strength exam: Left Upper Extremity: 5, Right Upper Extremity: 5, Left Lower Extremity: 5, Right Lower Extremity: 5 - Psychiatric Exam Psychiatric exam: Normal Affect, Normal Mood. absent: Agitated - Skin Additional comments: vitiligo, diffuse Assessment and Plan - Assessment and Plan (Free Text) Assessment: A/P: 42 yr old M admitted for right sided pneumothorax with PMHx of Severe Persistent asthma, COPD, gastritis, pancreatitis, and Eosinophilic colitis. Right Lung Pneumothorax, POD # 8 s/p right chest tube placement -Thoracic Surgery Consulted, Dr. Yo, recommendations appreciated -Pain management: Oxycodone and Gabapentin 300 TID -Monitor pleura-vac output, vital signs and respiratory status -s/p lung biopsy 04/09/18; pending results -CT Chest 04/19: Residual small pneumothorax, right lateral soft tissue emphysema -Possible OR surgical intervention Today for new chest tube placement (NPO, IVF) , F/u CXR Hospital acquired pneumonia due to Klebsiells, sputum culture positive for Klebsiells -Improved -Consult ID, Dr. Swain, recommendations appreciated -Sputum Cx: Growing Klebsiella, Sensitive to meropenem -continue with Meropenem 1gm Q8 (day 6) -C/w Probiotics -04/16/18 blood cx No growth per day, 04/15/18 2x blood culture No growth per day History of Severe Persistent asthma and COPD -Patient is wheezing (Chronic) -continue home medications: Xopenex INH Q4, Fluticasone/salmeterol 1 puff INH BID -Pulmonary consult, Dr. Esposito, will follow recommendations -C/w Prednisone 30mg PO QD Eosinophilic collitis -chronic, controlled -pain well controlled s/p superior hypogastric plexus block -Patient to follow up with Rheumatology, Dr. Brown as outpatient -Consult GI, Dr. Heart, recommendations appreciated (Spoke with GI: cleared for Prednisone PO daily) -Continue Famotidine 20mg PO QHS, Amitriptyline 10mg PO QHS and Budesonide 9mg PO QD Depressed/Labile mood - Denies SI/HI - Consult Psych, follow up recommendations - Will call Psych tomorrow (Chest tube placement today) History of systolic disfunction with reduced EF -Asymptomatic -Echo 12/15/17: EF 35-40% DVT prophylaxis -SCDs -Lovenox 40 SC daily (Held today for surgical intervention)
[2018-04-21] MEDS: Fluticasone-Salmeterol 500-50mcg Diskus INH SCH ×2 (08:36→21:16)
[2018-04-21] MEDS: Saccharomyces Boulardi 250 mg Cap PO SCH ×2 (08:37→17:27)
--- NOTE | 2018-04-21 12:23 | CP.PCM.PN ---
Subjective - Date & Time of Evaluation Date of Evaluation: 04/21/18 Time of Evaluation: 12:15 - Subjective Subjective: Pt s/e. [id number] chest tube-was off suction-when connected back to suction a large amount of air evacuated. Subcuatnaeous emphysema-remains the same. stat cxr.-No chest xary x2days. Discussed possibility of two chest tubes, and the surgery may not work in resolving the pneumothorax, which may reqauire resection. a/p: Persistent right pneumothorax. stat cxr. Discussed possibility of two chest tubes and Objective - Vital Signs/Intake and Output Vital Signs (last 24 hours): Temp Pulse Resp BP Pulse Ox 98.0 F 73 20 108/73 95 04/21/18 08:13 04/21/18 08:13 04/21/18 08:13 04/21/18 08:13 04/21/18 08:13 - Medications Medications: Current Medications Acetaminophen (Tylenol 325mg Tab) 650 mg PO Q4 PRN PRN Reason: Pain, Mild (1-3) Albuterol (Ventolin Hfa 90 Mcg/Actuation (8 G)) 2 puff IH Q6 PRN PRN Reason: Shortness of Breath Amitriptyline HCl (Elavil) 10 mg PO HS [facility] Last Admin: 04/20/18 22:02 Dose: 10 mg Docusate Sodium (Colace) 100 mg PO DAILY [facility] Last Admin: 04/21/18 08:37 Dose: Not Given Enoxaparin Sodium (Lovenox) 40 mg SC DAILY [facility] PRN Reason: Protocol Last Admin: 04/20/18 10:19 Dose: Not Given Famotidine (Pepcid) 20 mg PO HS [facility] Last Admin: 04/20/18 22:02 Dose: 20 mg Gabapentin (Neurontin) 300 mg PO TID [facility] Last Admin: 04/21/18 08:37 Dose: Not Given Home Med (Budesonide [Entocort Ec]) 9 mg PO DAILY [facility] Last Admin: 04/20/18 16:00 Dose: 9 mg Meropenem 1 gm/ Sodium (Chloride) 100 mls @ 100 mls/hr IVPB Q8 [facility] PRN Reason: Protocol Last Admin: 04/21/18 08:32 Dose: 100 mls/hr Dextrose/Sodium Chloride (Dextrose 5%-0.45% Ns 500 Ml) 1,000 mls @ 250 mls/hr IV .Q4H [facility] Stop: 04/21/18 14:44 Levalbuterol HCl (Xopenex) 1.25 mg INH RQ4 [facility] Last Admin: 04/21/18 07:55 Dose: 1.25 mg Montelukast Sodium (Singulair) 10 mg PO HS [facility] Last Admin: 04/20/18 22:02 Dose: 10 mg Ondansetron HCl (Zofran Inj) 4 mg IVP Q6 PRN PRN Reason: Nausea/Vomiting Last Admin: 04/18/18 10:10 Dose: 4 mg Oxycodone/Acetaminophen (Percocet 5/325 Mg Tab) 2 tab PO Q6 PRN PRN Reason: Pain, severe (8-10) Stop: 04/21/18 18:02 Last Admin: 04/20/18 22:01 Dose: 2 tab Oxycodone/Acetaminophen (Percocet 5/325 Mg Tab) 1 tab PO Q6 PRN PRN Reason: Pain, moderate (4-7) Stop: 04/21/18 18:03 Prednisone (Prednisone Tab) 30 mg PO DAILY [facility] Last Admin: 04/20/18 10:17 Dose: 30 mg Saccharomyces Boulardii (Florastor) 250 mg PO BID [facility] Last Admin: 04/21/18 08:37 Dose: Not Given Fluticasone/Salmeterol (Advair Diskus 500/50) 1 puff INH Q12 [facility] Last Admin: 04/21/18 08:36 Dose: 1 puff - Labs Labs: 04/21/18 05:40 04/21/18 05:40 PT 11.8 Seconds (9.8-13.1) 04/21/18 05:40 INR 1.1 04/21/18 05:40 APTT 27.9 Seconds (25.6-37.1) 04/21/18 05:40
--- NOTE | 2018-04-21 12:32 | RAD ---
Date of service: 04/21/2018 PROCEDURE: CHEST RADIOGRAPH, 1 VIEW HISTORY: Pneumothorax, s/p chest tube COMPARISON: 04/18/2018 FINDINGS: LUNGS: Probable osseous hypertrophic changes bordering the left anterior inferior 1st rib No consolidations seen. PLEURA: No gross pneumothorax or significant appearing pleural fluid seen. CARDIOVASCULAR: Normal. OSSEOUS STRUCTURES: No significant abnormalities. VISUALIZED UPPER ABDOMEN: Normal. OTHER FINDINGS: Chest tube tip over mid right lung zone as before. Lateral thoracic wall subcutaneous emphysema - less than before IMPRESSION: No change in right chest tube position,. No gross pneumothorax appreciated. Interval decreased lateral right subcutaneous thoracic emphysema
[2018-04-21] MEDS ORDERED: Lidocaine 4% (Laryng-O-Jet) Kit MM ONE (12:48)
[2018-04-21] MEDS ORDERED: Succinylcholine 200 mg/10 ml Inj IV ONE (12:51)
[2018-04-21] MEDS ORDERED: Lactated Ringer's 1,000 ML IV ONE ×2 (12:58→14:20)
[2018-04-21] MEDS ORDERED: Lactated Ringer's 500 ML IV ONE (12:58)
[2018-04-21] MEDS ORDERED: Midazolam 2 MG/2 ML VIAL ONE (13:00)
[2018-04-21] MEDS ORDERED: ePHEDrine 50 mg/ml Inj ONE (13:04)
[2018-04-21] MEDS: ceFAZolin IV 1 gm in Dextrose 1 GM/50 ML BAG IVPB ONE ×2 (13:10→13:15)
[2018-04-21] MEDS ORDERED: Dexamethasone 4 mg/1 ml ONE (13:12)
[2018-04-21] MEDS ORDERED: Bupivacaine 0.5% Inj(30mL) IJ ONE ×2 (14:14)
[2018-04-21] MEDS ORDERED: HYDROmorphone 1 mg/ml ISec ONE (14:44)
[2018-04-21] MEDS: HYDROmorphone 0.5 mg/0.5 ml ISec IVP PRN ×2 (14:45→15:00)
--- NOTE | 2018-04-21 15:18 | PCM.SURG1 ---
Surgeon's Initial Post Op Note - Surgeon's Notes Surgeon: Dr. Yo Clothing Examiner: Dr. Shin PGY3 Type of Anesthesia: General Endo Pre-Operative Diagnosis: right pneumothorax Operative Findings: see dictation Post-Operative Diagnosis: same Operation Performed: right chst tube thoracostomy placement under fluoroscopy Specimen/Specimens Removed: chest tube tip culture Estimated Blood Loss: EBL {In ML}: 5 Drains Used: No Drains, Chest Tubes ((R) anterior and posterior) Post-Op Condition: Good Date of Surgery/Procedure: 04/21/18 Time of Surgery/Procedure: 14:30
[2018-04-21] MEDS: BUDESONIDE 9 MG PO SCH (15:32)
--- NOTE | 2018-04-21 16:25 | RAD ---
Date of service: 04/21/2018 PROCEDURE: CHEST RADIOGRAPH, 1 VIEW HISTORY: s/p chest tube placement COMPARISON: 04/21/2018 at 12:20 FINDINGS: LUNGS: The prior chest with contrast 04/19/2018 reference to a right lower lobe known pulmonary nodule or nodules is much more clearly depicted on the CT than on chest radiographs. The prior right mid lung zone chest tube tip positioning/even presence is difficult to confirm in the same location. This tube may have been repositioned to project its tip more superomedial. Interval insertion at least 1 additional chest tubes. Its tip is superolateral at the right lung apex. Each chest tubes project towards the right lung apex. A definite pneumothorax is difficult to identify some hyper lucency over the right medial paramediastinal soft tissues is noted. . Consider follow-up noncontrast CT chest for better localization/ clarification of any areas of concern regarding increasing pneumothoraces which are not clearly depicted on this chest x-ray. PLEURA: As above. No significant pleural effusion. CARDIOVASCULAR: Normal. OSSEOUS STRUCTURES: No significant abnormalities. VISUALIZED UPPER ABDOMEN: Normal. OTHER FINDINGS: Re- demonstrated lateral thoracic subcutaneous emphysema. IMPRESSION: Currently 2 right chest tubes at minimum are present. The prior right mid lung zone chest tube tip may have been a reposition more superior and more medially. Clinical correlation is needed. A 2nd chest to tip projects at the superolateral right lung apex as well this is an interval insertion. A definitive pneumothorax is difficult to perceive. Consider clarification with noncontrast CT chest imaging. The prior CT depicted pulmonary nodules are also more clearly appreciated on the prior CT than these chest x-rays
--- NOTE | 2018-04-21 16:50 | CP.CCUPN ---
<Sultan Yudy - Last Filed: 04/21/18 17:44> CCU Subjective - Physician Review Subjective (Free Text): 04/21/18 16:50 42 yo male with pmhx of COPD, severe persistent asthma, gastritis, pancreatitis and eosinophilic colitis was admitted to inpatient on 04/13/18 for right sided pneumothorax. Pt had right sided lung biopsy on 04/08/18. Pt had right chest tube placement on 04/13/18 and dyspnea improved significantly, had some drainage from chest tube daily and now POD 8. Pt subsequently had another chest tube placement with fluroscopy this afternoon.Pt is also being treated for HAP. Pt currently denies any chest pain, dyspnea,fever or chills. CCU Objective - Vital Signs / Intake & Output Vital Signs (Last 4 hours): Vital Signs Temp Pulse Resp BP Pulse Ox 04/21/18 16:00 99 F 97 H 17 118/77 97 04/21/18 15:45 98.7 F 95 H 17 120/76 97 04/21/18 15:30 98.4 F 95 H 18 121/79 98 04/21/18 15:15 98 F 92 H 18 144/76 98 04/21/18 15:00 97.6 F 84 18 117/82 100 04/21/18 14:45 97.1 F L 85 18 115/83 100 04/21/18 14:30 96.7 F L 86 17 129/73 99 Intake and Output (Last 8hrs): Intake & Output 04/21/18 04/21/18 04/21/18 06:59 14:59 22:59 Intake Total 600 Output Total 17 Balance 600 -17 Intake: IV 600 Output: Drainage 17 - Physical Exam Head: Positive for: Atraumatic Pupils: Positive for: PERRL Extroacular Muscles: Positive for: EOMI Conjunctiva: Positive for: Normal Mouth: Positive for: Moist Mucous Membranes Neck: Positive for: Normal Range of Motion Respiratory/Chest: Positive for: Wheezes (mild, with prolong expiratory phase). Negative for: Respiratory Distress, Accessory Muscle Use, Retracting, Rhonchi , Tachypneic Cardiovascular: Positive for: Regular Rate and Rhythm, Normal S1, S2 Abdomen: Positive for: Normal Bowel Sounds. Negative for: Tenderness, Distention Upper Extremity: Positive for: Normal Inspection. Negative for: Edema Lower Extremity: Positive for: Normal Inspection. Negative for: Edema, CALF TENDERNESS Neurological: Positive for: Speech Normal Skin: Positive for: Other (generalized vitiligo) Psychiatric: Positive for: Alert - Medications Active Medications: Active Medications Generic Name Dose Route Start Last Admin Trade Name Freq PRN Reason Stop Dose Admin Acetaminophen 650 mg 04/17/18 23:56 Tylenol 325mg Tab PO Q4 PRN Pain, Mild (1-3) Albuterol 2 puff 04/17/18 23:56 Ventolin Hfa 90 Mcg/Actuation (8 G) IH Q6 PRN Shortness of Breath Amitriptyline HCl 10 mg 04/18/18 22:00 04/20/18 22:02 Elavil PO 10 mg HS DARIEL Administration Docusate Sodium 100 mg 04/18/18 09:00 04/21/18 08:37 Colace PO Not Given DAILY DARIEL Enoxaparin Sodium 40 mg 04/18/18 09:00 04/20/18 10:19 Lovenox SC Not Given DAILY DARIEL Protocol Famotidine 20 mg 04/18/18 22:00 04/20/18 22:02 Pepcid PO 20 mg HS DARIEL Administration Gabapentin 300 mg 04/18/18 09:00 04/21/18 08:37 Neurontin PO Not Given TID [facility] Home Med 9 mg 04/18/18 09:00 04/21/18 15:32 Budesonide [Entocort Ec] PO Not Given DAILY DARIEL Meropenem 1 gm/ Sodium 100 mls @ 100 mls/hr 04/18/18 01:00 04/21/18 08:32 Chloride IVPB 100 mls/hr Q8 DARIEL Administration Protocol Lactated Ringer's 1,000 mls @ 100 mls/hr 04/21/18 14:45 Lactated Ringer's IV .Q10H DARIEL Levalbuterol HCl 1.25 mg 04/18/18 00:00 04/21/18 15:36 Xopenex INH Not Given RQ4 DARIEL Montelukast Sodium 10 mg 04/18/18 22:00 04/20/18 22:02 Singulair PO 10 mg HS DARIEL Administration Morphine Sulfate 4 mg 04/21/18 14:45 Morphine IVP Q4 PRN Pain, severe (8-10) Ondansetron HCl 4 mg 04/18/18 09:52 04/18/18 10:10 Zofran Inj IVP 4 mg Q6 PRN Administration Nausea/Vomiting Oxycodone/Acetaminophen 2 tab 04/18/18 18:01 04/20/18 22:01 Percocet 5/325 Mg Tab PO 04/21/18 18:02 2 tab Q6 PRN Administration Pain, severe (8-10) Oxycodone/Acetaminophen 1 tab 04/18/18 18:02 Percocet 5/325 Mg Tab PO 04/21/18 18:03 Q6 PRN Pain, moderate (4-7) Prednisone 30 mg 04/19/18 09:00 04/21/18 15:31 Prednisone Tab PO Not Given DAILY DARIEL Saccharomyces Boulardii 250 mg 04/19/18 17:00 04/21/18 08:37 Florastor PO Not Given BID DARIEL Fluticasone/Salmeterol 1 puff 04/18/18 09:00 04/21/18 08:36 Advair Diskus 500/50 INH 1 puff Q12 DARIEL Administration - Patient Studies Lab Studies: Microbiology Studies 04/16/18 20:10 Blood Culture - Preliminary Blood-Venous NO GROWTH AFTER 4 DAYS 04/15/18 18:55 Blood Culture - Final Blood NO GROWTH AFTER 5 DAYS Gram Stain - Final TEST NOT PERFORMED 04/15/18 18:45 Blood Culture - Final Blood NO GROWTH AFTER 5 DAYS Gram Stain - Final TEST NOT PERFORMED Lab Studies 04/21/18 04/21/18 04/21/18 Range/Units 05:40 05:40 05:40 WBC 13.1 H (4.8-10.8) K/uL RBC 4.17 L (4.40-5.90) Mil/uL Hgb 12.0 (12.0-18.0) g/dL Hct 36.6 (35.0-51.0) % MCV 87.6 (80.0-94.0) fl MCH 28.7 (27.0-31.0) pg MCHC 32.8 L (33.0-37.0) g/dL RDW 15.7 H (11.5-14.5) % Plt Count 379 (130-400) K/uL MPV 8.2 (7.2-11.7) fl Neut % (Auto) 62.3 (50.0-75.0) % Lymph % (Auto) 20.9 (20.0-40.0) % Beauregard % (Auto) 11.1 H (0.0-10.0) % Eos % (Auto) 5.6 H (0.0-4.0) % Baso % (Auto) 0.1 (0.0-2.0) % Neut # (Auto) 8.1 H (1.8-7.0) K/uL Lymph # (Auto) 2.7 (1.0-4.3) K/uL Bea[place]gard # (Auto) 1.4 H (0.0-0.8) K/uL Eos # (Auto) 0.7 (0.0-0.7) K/uL Baso # (Auto) 0.0 (0.0-0.2) K/uL PT 11.8 (9.8-13.1) Seconds INR 1.1 APTT 27.9 (25.6-37.1) Seconds Sodium 138 (132-148) mmol/l Potassium 3.8 (3.6-5.0) MMOL/L Chloride 102 (98-107) mmol/L Carbon Dioxide 32 H (22-30) mmol/L Anion Gap 8 L (10-20) BUN 21 H (9-20) mg/dl Creatinine 0.8 (0.8-1.5) mg/dl Est GFR ( Amer) > 60 Est GFR (Non-Af Amer) > 60 Random Glucose 77 (75-110) mg/dL Calcium 8.4 (8.4-10.2) mg/dL Phosphorus 4.0 (2.5-4.5) mg/dl Magnesium 2.1 (1.6-2.3) MG/DL Laboratory Results - last 24 hr 04/21/18 04/21/18 04/21/18 05:40 05:40 05:40 WBC 13.1 H RBC 4.17 L Hgb 12.0 Hct 36.6 MCV 87.6 MCH 28.7 MCHC 32.8 L RDW 15.7 H Plt Count 379 MPV 8.2 Neut % (Auto) 62.3 Lymph % (Auto) 20.9 Beauregard % (Auto) 11.1 H Eos % (Auto) 5.6 H Baso % (Auto) 0.1 Neut # (Auto) 8.1 H Lymph # (Auto) 2.7 Beauregard # (Auto) 1.4 H Eos # (Auto) 0.7 Baso # (Auto) 0.0 PT 11.8 INR 1.1 APTT 27.9 Sodium 138 Potassium 3.8 Chloride 102 Carbon Dioxide 32 H Anion Gap 8 L BUN 21 H Creatinine 0.8 Est GFR ( Amer) > 60 Est GFR (Non-Af Amer) > 60 Random Glucose 77 Calcium 8.4 Phosphorus 4.0 Magnesium 2.1 Review of Systems - Review of Systems All systems: reviewed and no additional remarkable complaints except (as mentioned in HPI) Critical Care Progress Note - Nutrition Nutrition: Nutrition Category Date Time Status Altered GI/Hepatic Diet [DIET] Diets 04/21/18 Lunch Active Assessment/Plan - Assessment and Plan (Free Text) Assessment: Assessment: 42 yo male with pmhx of COPD, gastritis, pancreatitis and eosinophilic colitis, CHF admitted to inpatient on 04/13/18 for right sided pneumothorax, s/p right anterior chest tube placement, pod 8 and s/p right posterior chest tube placement under fluoroscopy today, recovering well. Pneumothorax of right lung with subcutaneous emphysema -s/p R anterior chest tube on 04/13/18 and R posterior chest tube today -Montior respiratory status, vital signs and chest tube output -Pain management with morphine and acetaminophen for fever -CT Chest 04/19: Residual small pneumothorax, right lateral soft tissue emphysema -f/u repeat CXR Immunoglobulin G4 related disease: -Right lung biopsy on 04/08/18 (final report): lung tissue with marked eosinophilia, lymphoplasmacytic infiltrate and makedly IgG4/IgG ratio. As well as touton type giant cells, raising a possiblity of IgG disease. However, characteristic histomorphologic features such as storiform fibrosis and obliterative vasculitis are not present. clinical correlation is suggested. -On prednisone 30 mg po qd -f/u with pulmonary [facility] Acquired Pneumonia -ID Dr. Swain on board. -Sputum Cx on 04/15/18: Klebsiella pneumoniae, Sensitive to meropenem -continue with Meropenem 1gm Q8 (day 6) History of systolic dysfunction with reduced EF -Asymptomatic -Echo 12/15/17: EF 35-40% History of Severe Persistent asthma and COPD -c/w Xopenex INH Q4, Fluticasone/salmeterol 1 puff INH BID -C/w Prednisone 30mg PO QD DVT prophylaxis: SCD for now ( spoke with Dr. Shin and she recommended to resume lovenox from tomorrow). GI prophylaxis: famotidine 20 mg qhs Code status: full code <Alexander Guerrero M - Last Filed: 04/21/18 17:56> CCU Objective - Vital Signs / Intake & Output Vital Signs (Last 4 hours): Vital Signs Temp Pulse Resp BP Pulse Ox 04/21/18 17:35 86 17 101/67 97 04/21/18 16:10 98 F 90 18 110/72 96 04/21/18 16:00 99 F 97 H 17 118/77 97 04/21/18 15:45 98.7 F 95 H 17 120/76 97 04/21/18 15:30 98.4 F 95 H 18 121/79 98 04/21/18 15:15 98 F 92 H 18 144/76 98 04/21/18 15:00 97.6 F 84 18 117/82 100 04/21/18 14:45 97.1 F L 85 18 115/83 100 04/21/18 14:30 96.7 F L 86 17 129/73 99 Intake and Output (Last 8hrs): Intake & Output 04/21/18 04/21/18 04/21/18 06:59 14:59 22:59 Intake Total 600 Output Total 17 Balance 600 -17 Intake: IV 600 Output: Drainage 17 - Medications Active Medications: Active Medications Generic Name Dose Route Start Last Admin Trade Name Freq PRN Reason Stop Dose Admin Acetaminophen 650 mg 04/17/18 23:56 Tylenol 325mg Tab PO Q4 PRN Pain, Mild (1-3) Albuterol 2 puff 04/17/18 23:56 Ventolin Hfa 90 Mcg/Actuation (8 G) IH Q6 PRN Shortness of Breath Amitriptyline HCl 10 mg 04/18/18 22:00 04/20/18 22:02 Elavil PO 10 mg HS DARIEL Administration Docusate Sodium 100 mg 04/18/18 09:00 04/21/18 08:37 Colace PO Not Given DAILY DARIEL Enoxaparin Sodium 40 mg 04/18/18 09:00 04/20/18 10:19 Lovenox SC Not Given DAILY [facility] Protocol Famotidine 20 mg 04/18/18 22:00 04/20/18 22:02 Pepcid PO 20 mg HS DARIEL Administration Gabapentin 300 mg 04/18/18 09:00 04/21/18 17:28 Neurontin PO 300 mg TID DARIEL Administration Home Med 9 mg 04/18/18 09:00 04/21/18 15:32 Budesonide [Entocort Ec] PO Not Given DAILY DARIEL Meropenem 1 gm/ Sodium 100 mls @ 100 mls/hr 04/18/18 01:00 04/21/18 17:18 Chloride IVPB 100 mls/hr Q8 DARIEL Administration Protocol Lactated Ringer's 1,000 mls @ 100 mls/hr 04/21/18 14:45 Lactated Ringer's IV .Q10H DARIEL Levalbuterol HCl 1.25 mg 04/18/18 00:00 04/21/18 15:36 Xopenex INH Not Given RQ4 DARIEL Montelukast Sodium 10 mg 04/18/18 22:00 04/20/18 22:02 Singulair PO 10 mg HS DARIEL Administration Morphine Sulfate 4 mg 04/21/18 14:45 Morphine IVP Q4 PRN Pain, severe (8-10) Ondansetron HCl 4 mg 04/18/18 09:52 04/18/18 10:10 Zofran Inj IVP 4 mg Q6 PRN Administration Nausea/Vomiting Oxycodone/Acetaminophen 2 tab 04/18/18 18:01 04/20/18 22:01 Percocet 5/325 Mg Tab PO 04/21/18 18:02 2 tab Q6 PRN Administration Pain, severe (8-10) Oxycodone/Acetaminophen 1 tab 04/18/18 18:02 Percocet 5/325 Mg Tab PO 04/21/18 18:03 Q6 PRN Pain, moderate (4-7) Prednisone 30 mg 04/19/18 09:00 04/21/18 15:31 Prednisone Tab PO Not Given DAILY DARIEL Saccharomyces Boulardii 250 mg 04/19/18 17:00 04/21/18 17:27 Florastor PO 250 mg BID DARIEL Administration Fluticasone/Salmeterol 1 puff 04/18/18 09:00 04/21/18 08:36 Advair Diskus 500/50 INH 1 puff Q12 DARIEL Administration - Patient Studies Lab Studies: Microbiology Studies 04/16/18 20:10 Blood Culture - Preliminary Blood-Venous NO GROWTH AFTER 4 DAYS 04/15/18 18:55 Blood Culture - Final Blood NO GROWTH AFTER 5 DAYS Gram Stain - Final TEST NOT PERFORMED 04/15/18 18:45 Blood Culture - Final Blood NO GROWTH AFTER 5 DAYS Gram Stain - Final TEST NOT PERFORMED Lab Studies 04/21/18 04/21/18 04/21/18 Range/Units 05:40 05:40 05:40 WBC 13.1 H (4.8-10.8) K/uL RBC 4.17 L (4.40-5.90) Mil/uL Hgb 12.0 (12.0-18.0) g/dL Hct 36.6 (35.0-51.0) % MCV 87.6 (80.0-94.0) fl MCH 28.7 (27.0-31.0) pg MCHC 32.8 L (33.0-37.0) g/dL RDW 15.7 H (11.5-14.5) % Plt Count 379 (130-400) K/uL MPV 8.2 (7.2-11.7) fl Neut % (Auto) 62.3 (50.0-75.0) % Lymph % (Auto) 20.9 (20.0-40.0) % Beauregard % (Auto) 11.1 H (0.0-10.0) % Eos % (Auto) 5.6 H (0.0-4.0) % Baso % (Auto) 0.1 (0.0-2.0) % Neut # (Auto) 8.1 H (1.8-7.0) K/uL Lymph # (Auto) 2.7 (1.0-4.3) K/uL Beauregard # (Auto) 1.4 H (0.0-0.8) K/uL Eos # (Auto) 0.7 (0.0-0.7) K/uL Baso # (Auto) 0.0 (0.0-0.2) K/uL PT 11.8 (9.8-13.1) Seconds INR 1.1 APTT 27.9 (25.6-37.1) Seconds Sodium 138 (132-148) mmol/l Potassium 3.8 (3.6-5.0) MMOL/L Chloride 102 (98-107) mmol/L Carbon Dioxide 32 H (22-30) mmol/L Anion Gap 8 L (10-20) BUN 21 H (9-20) mg/dl Creatinine 0.8 (0.8-1.5) mg/dl Est GFR ( Amer) > 60 Est GFR (Non-Af Amer) > 60 Random Glucose 77 (75-110) mg/dL Calcium 8.4 (8.4-10.2) mg/dL Phosphorus 4.0 (2.5-4.5) mg/dl Magnesium 2.1 (1.6-2.3) MG/DL Laboratory Results - last 24 hr 04/21/18 04/21/18 04/21/18 05:40 05:40 05:40 WBC 13.1 H RBC 4.17 L Hgb 12.0 Hct 36.6 MCV 87.6 MCH 28.7 MCHC 32.8 L RDW 15.7 H Plt Count 379 MPV 8.2 Neut % (Auto) 62.3 Lymph % (Auto) 20.9 Beauregard % (Auto) 11.1 H Eos % (Auto) 5.6 H Baso % (Auto) 0.1 Neut # (Auto) 8.1 H Lymph # (Auto) 2.7 Beauregard # (Auto) 1.4 H Eos # (Auto) 0.7 Baso # (Auto) 0.0 PT 11.8 INR 1.1 APTT 27.9 Sodium 138 Potassium 3.8 Chloride 102 Carbon Dioxide 32 H Anion Gap 8 L BUN 21 H Creatinine 0.8 Est GFR ( Amer) > 60 Est GFR (Non-Af Amer) > 60 Random Glucose 77 Calcium 8.4 Phosphorus 4.0 Magnesium 2.1 Critical Care Progress Note - Nutrition Nutrition: Nutrition Category Date Time Status Altered GI/Hepatic Diet [DIET] Diets 04/21/18 Lunch Active Attending/Attestation - Attestation I have personally seen and examined this patient.: Yes I have fully participated in the care of the patient.: Yes I have reviewed all pertinent clinical information: Yes Notes (Text): 04/21/18 17:56 The patient was Seen and examined by me at the bedside during ICU round, Medical records reviewed and Management issues were discussed and formulated with the house staff. Events reviewed I have reviewed all the relevant clinical, laboratory, hemodynamic, radiographic data and medications Pain issues, skin care, head of the bed elevation, glycemic control were addressed. I concur with resident's assessment and plan of care as transcribed in Dr. Jimenes note.
[2018-04-21] MEDS ORDERED: Oxycodone/Acetaminophen 5/325 mg Tab PO PRN (20:44)
[2018-04-21] MEDS ORDERED: DiphenhydrAMINE 50 mg/ml Inj IVP PRN (20:47)
[2018-04-21] MEDS: Oxycodone/Acetaminophen 5/325 mg Tab PO PRN (21:13)
[2018-04-21] MEDS ORDERED: Levalbuterol 1.25 MG/3 ML Inhal Soln UD INH STA (22:39)
[2018-04-22] MEDS: Levalbuterol 1.25 MG/3 ML Inhal Soln UD INH SCH ×7 (00:10→19:24)
[2018-04-22] MEDS: Meropenem 1 GM in Sodium Chloride 0.9% 100 ML IVPB SCH ×3 (00:21→17:15)
[2018-04-22] MEDS: Lactated Ringer's 1,000 ML IV SCH ×2 (01:00→12:37)
[2018-04-22] MEDS: Oxycodone/Acetaminophen 5/325 mg Tab PO PRN ×3 (03:56→18:11)
[2018-04-22 05:02] LABS: BASO % 0.3 % (0.0-2.0); EOS # 0.1 K/uL (0.0-0.7); EOS % 0.5 % (0.0-4.0); HEMOGLOBIN 11.6 g/dL (12.0-18.0); LYMPH # 1.9 K/uL (1.0-4.3); LYMPH % 12.1 % (20.0-40.0); MEAN CELL VOLUME 88.2 fl (80.0-94.0); MEAN CORPUSCULAR HEMOGLOBIN 28.7 pg (27.0-31.0); MEAN CORPUSCULAR HGB CONC 32.5 g/dL (33.0-37.0); MEAN PLATELET VOLUME 8.2 fl (7.2-11.7); MONO # 1.8 K/uL (0.0-0.8); MONO % 11.4 % (0.0-10.0); NEUT % 75.7 % (50.0-75.0); RBC 4.04 Mil/uL (4.40-5.90); WHITE BLOOD COUNT 15.8 K/uL (4.8-10.8)
[2018-04-22 07:01] LABS: BLOOD UREA NITROGEN 29 mg/dl (9-20); CALCIUM 8.5 mg/dL (8.4-10.2); GFR AFRICAN-AMERICAN > 60; GFR NON-AFRICAN AMERICAN > 60
[2018-04-22] MEDS: Lidocaine 5% Patch TD SCH (08:16)
--- NOTE | 2018-04-22 08:17 | CP.PCM.PN ---
Subjective - Date & Time of Evaluation Date of Evaluation: 04/22/18 Time of Evaluation: 08:15 - Subjective Subjective: CT surgery progress note for Dr. Michell Snow, PGY-2 Pt S & E at bedside at 0720 Pt reports a lot of pain at CT insertion sites overnight, unable to sleep- tried Benadryl without relief. Pt reports not liking Morphine- prefers Percocet. Encouraged pt to use Lidoderm patch for pain. No other complaints at this time. Anterior CT with 40 cc serosanguinous output, Posterior CT w/60 cc Serosanguinous output over last 24 Hrs, no airleaks noted. Objective - Vital Signs/Intake and Output Vital Signs (last 24 hours): Temp Pulse Resp BP Pulse Ox 98.2 F 76 14 103/69 97 04/22/18 04:00 04/22/18 07:39 04/22/18 07:39 04/22/18 07:39 04/22/18 07:39 Intake and Output: 04/22/18 04/22/18 06:59 18:59 Intake Total 1200 200 Output Total 920 Balance 280 200 - Medications Medications: Current Medications Acetaminophen (Tylenol 325mg Tab) 650 mg PO Q4 PRN PRN Reason: Pain, Mild (1-3) Albuterol (Ventolin Hfa 90 Mcg/Actuation (8 G)) 2 puff IH Q6 PRN PRN Reason: Shortness of Breath Amitriptyline HCl (Elavil) 10 mg PO HS [facility] Last Admin: 04/21/18 21:13 Dose: 10 mg Diphenhydramine HCl (Benadryl) 25 mg IVP HS PRN PRN Reason: Insomnia Last Admin: 04/22/18 02:18 Dose: 25 mg Docusate Sodium (Colace) 100 mg PO DAILY [facility] Last Admin: 04/21/18 08:37 Dose: Not Given Enoxaparin Sodium (Lovenox) 40 mg SC DAILY [facility] PRN Reason: Protocol Last Admin: 04/20/18 10:19 Dose: Not Given Famotidine (Pepcid) 20 mg PO HS [facility] Last Admin: 04/21/18 22:35 Dose: 20 mg Gabapentin (Neurontin) 300 mg PO TID [facility] Last Admin: 04/21/18 17:28 Dose: 300 mg Home Med (Budesonide [Entocort Ec]) 9 mg PO DAILY [facility] Last Admin: 04/21/18 15:32 Dose: Not Given Meropenem 1 gm/ Sodium (Chloride) 100 mls @ 100 mls/hr IVPB Q8 [facility] PRN Reason: Protocol Last Admin: 04/22/18 00:21 Dose: 100 mls/hr Lactated Ringer's (Lactated Ringer's) 1,000 mls @ 100 mls/hr IV .Q10H [facility] Last Admin: 04/22/18 01:00 Dose: 100 mls/hr Levalbuterol HCl (Xopenex) 1.25 mg INH RQ4 [facility] Last Admin: 04/22/18 07:39 Dose: 1.25 mg Lidocaine (Lidoderm) 1 ea TD DAILY [facility] Montelukast Sodium (Singulair) 10 mg PO HS [facility] Last Admin: 04/21/18 21:17 Dose: 10 mg Morphine Sulfate (Morphine) 4 mg IVP Q4 PRN PRN Reason: Pain, severe (8-10) Last Admin: 04/21/18 19:36 Dose: 4 mg Ondansetron HCl (Zofran Inj) 4 mg IVP Q6 PRN PRN Reason: Nausea/Vomiting Last Admin: 04/18/18 10:10 Dose: 4 mg Oxycodone/Acetaminophen (Percocet 5/325 Mg Tab) 1 tab PO Q4 PRN PRN Reason: Pain, Mild (1-3) Stop: 04/24/18 20:45 Oxycodone/Acetaminophen (Percocet 5/325 Mg Tab) 2 tab PO Q6 PRN PRN Reason: Pain, moderate (4-7) Stop: 04/24/18 20:45 Last Admin: 04/22/18 03:56 Dose: 2 tab Prednisone (Prednisone Tab) 30 mg PO DAILY [facility] Last Admin: 04/21/18 15:31 Dose: Not Given Saccharomyces Boulardii (Florastor) 250 mg PO BID [facility] Last Admin: 04/21/18 17:27 Dose: 250 mg Fluticasone/Salmeterol (Advair Diskus 500/50) 1 puff INH Q12 [facility] Last Admin: 04/21/18 21:16 Dose: Not Given Zolpidem Tartrate (Ambien) 5 mg PO HS PRN PRN Reason: Insomnia - Labs Labs: 04/22/18 04:30 04/22/18 04:30 PT 11.8 Seconds (9.8-13.1) 04/21/18 05:40 INR 1.1 04/21/18 05:40 APTT 27.9 Seconds (25.6-37.1) 04/21/18 05:40 - Constitutional Appears: Non-toxic, No Acute Distress - Head Exam Head Exam: ATRAUMATIC, NORMAL INSPECTION, NORMOCEPHALIC - Eye Exam Eye Exam: EOMI, Normal appearance - ENT Exam ENT Exam: Mucous Membranes Moist, Normal Exam - Neck Exam Neck Exam: Full ROM, Normal Inspection - Respiratory Exam Respiratory Exam: Chest Wall Tenderness (at Right CT insertion sites), NORMAL BREATHING PATTERN. absent: Respiratory Distress Additional comments: CT Dressing x 2 - clean/dry/intact - Cardiovascular Exam Cardiovascular Exam: REGULAR RHYTHM, +S1, +S2 - GI/Abdominal Exam GI & Abdominal Exam: Soft. absent: Tenderness - Extremities Exam Extremities Exam: Normal Inspection - Neurological Exam Neurological Exam: Alert, Awake, CN II-XII Intact, Oriented x3 - Psychiatric Exam Psychiatric exam: Normal Affect, Normal Mood - Skin Skin Exam: Dry, Warm. absent: Normal Color (vitiligo) Assessment and Plan - Assessment and Plan (Free Text) Assessment: 42M w/R pneumothorax s/p CT insertion x 2 POD #1 Plan: Cont CT to wall suction Monitor outputs Ambien for insomnia Cont Pain control Encourage IS use OOBTC FU CT Chest today Then daily CXR after today DW attending Gwendolyn, PGY-2
--- NOTE | 2018-04-22 09:24 | CP.PCM.PN ---
Subjective - Date & Time of Evaluation Date of Evaluation: 04/22/18 Time of Evaluation: 09:24 - Subjective Subjective: Yesterday pt had a second chest tube placed, posteriorly. No acute overnight events. Pt states that he is feeling well. Pain in CT site, worse with bearing down and when he is coughing. Denies dyspnea, n/v/d. Remains afebrile. Ant CT 30ml total serosangunious POD9 Post [address] 60ml total serosangunious POD1 Objective - Vital Signs/Intake and Output Vital Signs (last 24 hours): Temp Pulse Resp BP Pulse Ox 98.2 F 76 14 103/69 97 04/22/18 04:00 04/22/18 07:39 04/22/18 07:39 04/22/18 07:39 04/22/18 07:39 Intake and Output: 04/22/18 04/22/18 06:59 18:59 Intake Total 1200 200 Output Total 920 Balance 280 200 - Medications Medications: Current Medications Acetaminophen (Tylenol 325mg Tab) 650 mg PO Q4 PRN PRN Reason: Pain, Mild (1-3) Albuterol (Ventolin Hfa 90 Mcg/Actuation (8 G)) 2 puff IH Q6 PRN PRN Reason: Shortness of Breath Amitriptyline HCl (Elavil) 10 mg PO HS [facility] Last Admin: 04/21/18 21:13 Dose: 10 mg Diphenhydramine HCl (Benadryl) 25 mg IVP HS PRN PRN Reason: Insomnia Last Admin: 04/22/18 02:18 Dose: 25 mg Docusate Sodium (Colace) 100 mg PO DAILY [facility] Last Admin: 04/21/18 08:37 Dose: Not Given Enoxaparin Sodium (Lovenox) 40 mg SC DAILY [facility] PRN Reason: Protocol Last Admin: 04/20/18 10:19 Dose: Not Given Famotidine (Pepcid) 20 mg PO HS [facility] Last Admin: 04/21/18 22:35 Dose: 20 mg Gabapentin (Neurontin) 300 mg PO TID [facility] Last Admin: 04/22/18 08:21 Dose: 300 mg Home Med (Budesonide [Entocort Ec]) 9 mg PO DAILY [facility] Last Admin: 04/21/18 15:32 Dose: Not Given Meropenem 1 gm/ Sodium (Chloride) 100 mls @ 100 mls/hr IVPB Q8 [facility] PRN Reason: Protocol Last Admin: 04/22/18 08:19 Dose: 100 mls/hr Lactated Ringer's (Lactated Ringer's) 1,000 mls @ 100 mls/hr IV .Q10H [facility] Last Admin: 04/22/18 01:00 Dose: 100 mls/hr Levalbuterol HCl (Xopenex) 1.25 mg INH RQ4 [facility] Last Admin: 04/22/18 07:39 Dose: 1.25 mg Lidocaine (Lidoderm) 1 ea TD DAILY [facility] Last Admin: 04/22/18 08:16 Dose: 1 ea Montelukast Sodium (Singulair) 10 mg PO HS [facility] Last Admin: 04/21/18 21:17 Dose: 10 mg Morphine Sulfate (Morphine) 4 mg IVP Q4 PRN PRN Reason: Pain, severe (8-10) Last Admin: 04/21/18 19:36 Dose: 4 mg Ondansetron HCl (Zofran Inj) 4 mg IVP Q6 PRN PRN Reason: Nausea/Vomiting Last Admin: 04/18/18 10:10 Dose: 4 mg Oxycodone/Acetaminophen (Percocet 5/325 Mg Tab) 1 tab PO Q4 PRN PRN Reason: Pain, Mild (1-3) Stop: 04/24/18 20:45 Oxycodone/Acetaminophen (Percocet 5/325 Mg Tab) 2 tab PO Q6 PRN PRN Reason: Pain, moderate (4-7) Stop: 04/24/18 20:45 Last Admin: 04/22/18 03:56 Dose: 2 tab Prednisone (Prednisone Tab) 30 mg PO DAILY [facility] Last Admin: 04/22/18 08:21 Dose: 30 mg Saccharomyces Boulardii (Florastor) 250 mg PO BID [facility] Last Admin: 04/21/18 17:27 Dose: 250 mg Fluticasone/Salmeterol (Advair Diskus 500/50) 1 puff INH Q12 [facility] Last Admin: 04/21/18 21:16 Dose: Not Given Zolpidem Tartrate (Ambien) 5 mg PO HS PRN PRN Reason: Insomnia - Labs Labs: 04/22/18 04:30 04/22/18 04:30 PT 11.8 Seconds (9.8-13.1) 04/21/18 05:40 INR 1.1 04/21/18 05:40 APTT 27.9 Seconds (25.6-37.1) 04/21/18 05:40 - Constitutional Appears: No Acute Distress, Cachectic - Head Exam Head Exam: ATRAUMATIC - Eye Exam Eye Exam: EOMI, Normal appearance - ENT Exam ENT Exam: Mucous Membranes Moist - Respiratory Exam Respiratory Exam: Decreased Breath Sounds (in the RM/L lobe), Wheezes (b/l on expiration ), NORMAL BREATHING PATTERN Additional comments: subcutaneous emphysema appreciated in right thorax above the tape (T2/3 area above the R nipple) and in the back adjacent to the tape - Cardiovascular Exam Cardiovascular Exam: REGULAR RHYTHM, +S1, +S2 - GI/Abdominal Exam GI & Abdominal Exam: Soft, Normal Bowel Sounds. absent: Tenderness - Extremities Exam Extremities Exam: absent: Calf Tenderness, Pedal Edema - Back Exam Additional comments: CT appreciated in R axialla, tape intact. Tubes draining sero-sanguineous fluid - Neurological Exam Neurological Exam: Alert, Awake - Skin Additional comments: vitaligo noted throughout the body, multiple tattoos noted Assessment and Plan - Assessment and Plan (Free Text) Assessment: Assessment/plan: 42 YO Male with PMHx of Severe Persistent asthma, COPD, gastritis, pancreatitis , and Eosinophilic colitis is admitted for right sided pneumothorax Right Pneumothorax, -POD 9 s/p R ant chest tube; POD 1 s/p R post ant chest tube -Thoracic Surgery on Consult; Dr. Yo -pulmonary on consult; biopsy finding discussed with Dr. Esposito; rec for pt to see rheumatology. -Pain management: Oxycodone and Gabapentin 300 TID -s/p lung biopsy 04/08/18; lung tissue with marked eosinophilia, lymphoplasmacytic infiltrate with increased IgG4/IgG ratio as well as touton type giant cells. -CT Chest 04/19: Residual small pneumothorax, right lateral soft tissue emphysema -will send pleural fluid for cx, LDH, protein, cell count, f/u -Monitor pleura-vac output -Repeat CT today Hospital acquired pneumonia -Improving -ID on board; Dr. Swain, recommendations appreciated -Sputum Cx: Growing Klebsiella, Sensitive to meropenem -continue with Meropenem 1gm Q8 (day 710) -C/w Probiotics -04/16/18; blood cx no growth per day Severe Persistent asthma and COPD -Chronic -continue home medications: Xopenex INH Q4, Fluticasone/salmeterol 1 puff INH BID -Pulmonary consult, Dr. Esposito -C/w Prednisone 30mg PO QD Eosinophilic collitis -chronic, controlled -pain well controlled s/p superior hypogastric plexus block -Patient to follow up with Rheumatology, Dr. Brown as outpatient -Consult GI, Dr. Heart, recommendations appreciated (Spoke with GI: cleared for Prednisone PO daily) -Continue Famotidine 20mg PO QHS, Amitriptyline 10mg PO QHS and Budesonide 9mg PO QD Depressed/Labile mood -Denies SI/HI -Consult Psych, follow up recommendations -pt agreed to see pysh in AM History of systolic disfunction with reduced EF -Asymptomatic -Echo 12/15/17: EF 35-40% DVT prophylaxis -SCDs -PT/OT consulted -Lovenox 40 SC daily
--- NOTE | 2018-04-22 09:26 | CP.PCM.PN ---
Subjective - Date & Time of Evaluation Date of Evaluation: 04/22/18 Time of Evaluation: 09:26 - Subjective Subjective: ID Note- Pt. seen and examined today in ICU. pt. s/p another right chest tube placement yesterday by CT surgeon and currently has 2 right chest tubes in place. Denies any fever or sob. states has loose stools today. Objective - Vital Signs/Intake and Output Vital Signs (last 24 hours): Temp Pulse Resp BP Pulse Ox 98.2 F 76 14 103/69 97 04/22/18 04:00 04/22/18 07:39 04/22/18 07:39 04/22/18 07:39 04/22/18 07:39 Intake and Output: 04/22/18 04/22/18 06:59 18:59 Intake Total 1200 200 Output Total 920 Balance 280 200 - Medications Medications: Current Medications Acetaminophen (Tylenol 325mg Tab) 650 mg PO Q4 PRN PRN Reason: Pain, Mild (1-3) Albuterol (Ventolin Hfa 90 Mcg/Actuation (8 G)) 2 puff IH Q6 PRN PRN Reason: Shortness of Breath Amitriptyline HCl (Elavil) 10 mg PO HS [facility] Last Admin: 04/21/18 21:13 Dose: 10 mg Diphenhydramine HCl (Benadryl) 25 mg IVP HS PRN PRN Reason: Insomnia Last Admin: 04/22/18 02:18 Dose: 25 mg Docusate Sodium (Colace) 100 mg PO DAILY [facility] Last Admin: 04/21/18 08:37 Dose: Not Given Enoxaparin Sodium (Lovenox) 40 mg SC DAILY [facility] PRN Reason: Protocol Last Admin: 04/20/18 10:19 Dose: Not Given Famotidine (Pepcid) 20 mg PO HS [facility] Last Admin: 04/21/18 22:35 Dose: 20 mg Gabapentin (Neurontin) 300 mg PO TID [facility] Last Admin: 04/22/18 08:21 Dose: 300 mg Home Med (Budesonide [Entocort Ec]) 9 mg PO DAILY [facility] Last Admin: 04/21/18 15:32 Dose: Not Given Meropenem 1 gm/ Sodium (Chloride) 100 mls @ 100 mls/hr IVPB Q8 [facility] PRN Reason: Protocol Last Admin: 04/22/18 08:19 Dose: 100 mls/hr Lactated Ringer's (Lactated Ringer's) 1,000 mls @ 100 mls/hr IV .Q10H [facility] Last Admin: 04/22/18 01:00 Dose: 100 mls/hr Levalbuterol HCl (Xopenex) 1.25 mg INH RQ4 [facility] Last Admin: 04/22/18 07:39 Dose: 1.25 mg Lidocaine (Lidoderm) 1 ea TD DAILY [facility] Last Admin: 04/22/18 08:16 Dose: 1 ea Montelukast Sodium (Singulair) 10 mg PO HS [facility] Last Admin: 04/21/18 21:17 Dose: 10 mg Morphine Sulfate (Morphine) 4 mg IVP Q4 PRN PRN Reason: Pain, severe (8-10) Last Admin: 04/21/18 19:36 Dose: 4 mg Ondansetron HCl (Zofran Inj) 4 mg IVP Q6 PRN PRN Reason: Nausea/Vomiting Last Admin: 04/18/18 10:10 Dose: 4 mg Oxycodone/Acetaminophen (Percocet 5/325 Mg Tab) 1 tab PO Q4 PRN PRN Reason: Pain, Mild (1-3) Stop: 04/24/18 20:45 Oxycodone/Acetaminophen (Percocet 5/325 Mg Tab) 2 tab PO Q6 PRN PRN Reason: Pain, moderate (4-7) Stop: 04/24/18 20:45 Last Admin: 04/22/18 03:56 Dose: 2 tab Prednisone (Prednisone Tab) 30 mg PO DAILY [facility] Last Admin: 04/22/18 08:21 Dose: 30 mg Saccharomyces Boulardii (Florastor) 250 mg PO BID [facility] Last Admin: 04/21/18 17:27 Dose: 250 mg Fluticasone/Salmeterol (Advair Diskus 500/50) 1 puff INH Q12 [facility] Last Admin: 04/21/18 21:16 Dose: Not Given Zolpidem Tartrate (Ambien) 5 mg PO HS PRN PRN Reason: Insomnia - Labs Labs: - Additional Findings Additional findings: - Constitutional Appears: Non-toxic, No Acute Distress - Head Exam Head Exam: ATRAUMATIC - Eye Exam Eye Exam: EOMI, PERRL - ENT Exam ENT Exam: Normal Oropharynx - Neck Exam Neck exam: Positive for: Full Rom - Respiratory Exam Respiratory Exam: NORMAL BREATHING PATTERN Additional comments: has 2 right chest tube in place No wheezing aeration heard b/l less on the right base - Cardiovascular Exam Cardiovascular Exam: RRR, +S1, +S2 - GI/Abdominal Exam GI & Abdominal Exam: Normal Bowel Sounds, Soft Additional comments: NT, ND - Extremities Exam Additional comments: no edema B/l Le - Neurological Exam Neurological exam: Alert, Oriented x 3 Laboratory Results - last 72 hr 04/20/18 04/21/18 04/21/18 05:40 05:40 05:40 WBC 11.3 H 13.1 H RBC 4.50 4.17 L Hgb 12.7 12.0 Hct 39.8 36.6 MCV 88.6 87.6 MCH 28.2 28.7 MCHC 31.9 L 32.8 L RDW 15.9 H 15.7 H Plt Count 378 379 MPV 8.2 8.2 Neut % (Auto) 53.2 62.3 Lymph % (Auto) 27.5 20.9 [place] % (Auto) 11.6 H 11.1 H Eos % (Auto) 7.6 H 5.6 H Baso % (Auto) 0.1 0.1 Neut # (Auto) 6.0 8.1 H Lymph # (Auto) 3.1 2.7 [place] # (Auto) 1.3 H 1.4 H Eos # (Auto) 0.9 H 0.7 Baso # (Auto) 0.0 0.0 PT 11.8 INR 1.1 APTT 27.9 Sodium Potassium Chloride Carbon Dioxide Anion Gap BUN Creatinine Est GFR ( Amer) Est GFR (Non-Af Amer) Random Glucose Calcium Phosphorus Magnesium 04/21/18 04/22/18 04/22/18 05:40 04:30 04:30 WBC 15.8 H RBC 4.04 L Hgb 11.6 L Hct 35.6 MCV 88.2 MCH 28.7 MCHC 32.5 L RDW 16.0 H Plt Count 380 MPV 8.2 Neut % (Auto) 75.7 H Lymph % (Auto) 12.1 L [place] % (Auto) 11.4 H Eos % (Auto) 0.5 Baso % (Auto) 0.3 Neut # (Auto) 12.0 H Lymph # (Auto) 1.9 [place] # (Auto) 1.8 H Eos # (Auto) 0.1 Baso # (Auto) 0.0 PT INR APTT Sodium 138 137 Potassium 3.8 4.3 Chloride 102 101 Carbon Dioxide 32 H 31 H Anion Gap 8 L 9 L BUN 21 H 29 H Creatinine 0.8 1.0 Est GFR ( Amer) > 60 > 60 Est GFR (Non-Af Amer) > 60 > 60 Random Glucose 77 101 Calcium 8.4 8.5 Phosphorus 4.0 Magnesium 2.1 Microbiology 04/16/18 20:10 Blood-Venous Blood Culture - Final NO GROWTH AFTER 5 DAYS 04/16/18 20:10 Blood-Venous Gram Stain - Final TEST NOT PERFORMED 04/15/18 18:55 Blood Blood Culture - Final NO GROWTH AFTER 5 DAYS 04/15/18 18:55 Blood Gram Stain - Final TEST NOT PERFORMED 04/15/18 18:45 Blood Blood Culture - Final NO GROWTH AFTER 5 DAYS 04/15/18 18:45 Blood Gram Stain - Final TEST NOT PERFORMED 04/18/18 18:19 Naris MRSA Culture (Admit) - Final MRSA NOT DETECTED 04/15/18 19:45 Urine,Clean Catch Urine Culture - Final No Growth (<1,000 CFU/ML) 04/15/18 19:45 Sputum Gram Stain - Final 04/15/18 19:45 Sputum Sputum Culture - Final Klebsiella Pneumoniae Ssp Pneu 04/14/18 10:45 Nose MRSA Culture (Admit) - Final MRSA NOT DETECTED Assessment and Plan (1) Pneumothorax Status: Acute (2) COPD (chronic obstructive pulmonary disease) Status: Acute (3) Eosinophilic colitis Status: Acute - Assessment and Plan (Free Text) Assessment: A/P- 42 year old male with extensive medical history including multiple bouts of abdominal pian, pancreatitis, colitis, gastritis, pulmonary nodules, copd has had extensive work up done and was diagnosed with eosinophilic colitis via colonoscopy . recent lung biopsy for further eval of the pulm nodules and developed PTX s/p CT and now has one more ct for nonresolving PTX. s/p another ct placement for ptx hence has now [address] afebrile Leukocytosis increasing past 2 days sputum cx- Klebsiella pneumonia ( pansensitive) UA- neg blood cx- neg x 2 urine cx- neg PLan- advise to continue with IV meropenm since the VICENTE of the klebsiella is very good to this day #7 advise total 10 days of the meropnem. follow up lung biopsy result . Check stool C.Diff. advise to continue with probiotics while on IV abx. CT management as per Ct surgery and ICU team. all labs and imaging reviewed. case d/w Dr.Pierre Salas at length. Pt. verbalizes full understanding of all above and agrees with above plan of care. ICU time 45 min.
[2018-04-22] MEDS: BUDESONIDE 9 MG PO SCH (11:18)
[2018-04-22] MEDS: Fluticasone-Salmeterol 500-50mcg Diskus INH SCH ×2 (11:18→21:06)
[2018-04-22] MEDS: Saccharomyces Boulardi 250 mg Cap PO SCH ×2 (11:20→17:17)
[2018-04-22] MEDS: Enoxaparin 40 mg Syringe SC SCH (11:20)
--- NOTE | 2018-04-22 11:53 | RAD ---
Date of service: 04/21/2018 PROCEDURE: Fluoroscopic assistance in excess of 1 hour. HISTORY: CHEST TUBE INSERTION COMPARISON: None TECHNIQUE: Standard protocol for this study/examination. FINDINGS: Total fluoroscopic time (continuous mode) utilized during the procedure 345.8 (seconds). IMPRESSION: Submitted images from the current procedure: 2.0
--- NOTE | 2018-04-22 14:34 | CP.CCUPN ---
CCU Subjective - Physician Review Events Since Last Encounter (Free Text): 04/22/18 14:33 clinically improved, no complaints. CCU Objective - Vital Signs / Intake & Output Vital Signs (Last 4 hours): Vital Signs Pulse Resp BP Pulse Ox 04/22/18 12:00 93 H 18 116/93 H 96 Intake and Output (Last 8hrs): Intake & Output 04/21/18 04/22/18 04/22/18 22:59 06:59 14:59 Intake Total 700 800 950 Output Total 122 919 9357 Balance 443 -120 -250 Intake: IV 600 700 600 Intake, Piggyback 100 100 100 Oral 250 Output: Chest Tube Drainage 40 Right Anterior Chest 10 Right Posterior Chest 30 Drainage 17 20 Right Anterior 5 Right Posterior 15 Urine 145 900 2381 Urine, Voided [id number] - Physical Exam Head: Positive for: Atraumatic Pupils: Positive for: PERRL Extroacular Muscles: Positive for: EOMI Conjunctiva: Positive for: Normal Mouth: Positive for: Moist Mucous Membranes Neck: Positive for: Normal Range of Motion Respiratory/Chest: Positive for: Wheezes (mild, with prolong expiratory phase). Negative for: Respiratory Distress, Accessory Muscle Use, Retracting, Rhonchi , Tachypneic Cardiovascular: Positive for: Regular Rate and Rhythm, Normal S1, S2 Abdomen: Positive for: Normal Bowel Sounds. Negative for: Tenderness, Distention Upper Extremity: Positive for: Normal Inspection. Negative for: Edema Lower Extremity: Positive for: Normal Inspection. Negative for: Edema, CALF TENDERNESS Neurological: Positive for: Speech Normal Skin: Positive for: Other (generalized vitiligo) Psychiatric: Positive for: Alert - Medications Active Medications: Active Medications Generic Name Dose Route Start Last Admin Trade Name Freq PRN Reason Stop Dose Admin Acetaminophen 650 mg 04/17/18 23:56 Tylenol 325mg Tab PO Q4 PRN Pain, Mild (1-3) Albuterol 2 puff 04/17/18 23:56 Ventolin Hfa 90 Mcg/Actuation (8 G) IH Q6 PRN Shortness of Breath Amitriptyline HCl 10 mg 04/18/18 22:00 04/21/18 21:13 Elavil PO 10 mg HS [facility] Administration Diphenhydramine HCl 25 mg 04/21/18 20:47 04/22/18 02:18 Benadryl IVP 25 mg HS PRN Administration Insomnia Docusate Sodium 100 mg 04/18/18 09:00 04/22/18 11:29 Colace PO Not Given DAILY [facility] Enoxaparin Sodium 40 mg 04/18/18 09:00 04/22/18 11:20 Lovenox SC 40 mg DAILY [facility] Administration Protocol Famotidine 20 mg 04/18/18 22:00 04/21/18 22:35 Pepcid PO 20 mg HS [facility] Administration Gabapentin 300 mg 04/18/18 09:00 04/22/18 12:39 Neurontin PO 300 mg TID [facility] Administration Home Med 9 mg 04/18/18 09:00 04/22/18 11:18 Budesonide [Entocort Ec] PO Not Given DAILY [facility] Meropenem 1 gm/ Sodium 100 mls @ 100 mls/hr 04/18/18 01:00 04/22/18 08:19 Chloride IVPB 100 mls/hr Q8 [facility] Administration Protocol Lactated Ringer's 1,000 mls @ 100 mls/hr 04/21/18 14:45 04/22/18 12:37 Lactated Ringer's IV 100 mls/hr .Q10H [facility] Administration Lactobacillus Acidophilus 1 cap 04/22/18 17:00 Bacid Acidophilus PO BID [facility] Levalbuterol HCl 1.25 mg 04/18/18 00:00 04/22/18 11:25 Xopenex INH 1.25 mg RQ4 [facility] Administration Lidocaine 1 ea 04/22/18 09:00 04/22/18 08:16 Lidoderm TD 1 ea DAILY [facility] Administration Montelukast Sodium 10 mg 04/18/18 22:00 04/21/18 21:17 Singulair PO 10 mg HS [facility] Administration Morphine Sulfate 4 mg 04/21/18 14:45 04/21/18 19:36 Morphine IVP 4 mg Q4 PRN Administration Pain, severe (8-10) Ondansetron HCl 4 mg 04/18/18 09:52 04/18/18 10:10 Zofran Inj IVP 4 mg Q6 PRN Administration Nausea/Vomiting Oxycodone/Acetaminophen 1 tab 04/21/18 20:44 Percocet 5/325 Mg Tab PO 04/24/18 20:45 Q4 PRN Pain, Mild (1-3) Oxycodone/Acetaminophen 2 tab 04/21/18 20:44 04/22/18 11:25 Percocet 5/325 Mg Tab PO 04/24/18 20:45 2 tab Q6 PRN Administration Pain, moderate (4-7) Prednisone 30 mg 04/19/18 09:00 04/22/18 08:21 Prednisone Tab PO 30 mg DAILY [facility] Administration Saccharomyces Boulardii 250 mg 04/19/18 17:00 04/22/18 11:20 Florastor PO 250 mg BID [facility] Administration Fluticasone/Salmeterol 1 puff 04/18/18 09:00 04/22/18 11:18 Advair Diskus 500/50 INH Not Given Q12 [facility] Zolpidem Tartrate 5 mg 04/22/18 07:44 Ambien PO HS PRN Insomnia - Patient Studies Lab Studies: Microbiology Studies 04/16/18 20:10 Blood Culture - Final Blood-Venous NO GROWTH AFTER 5 DAYS Gram Stain - Final TEST NOT PERFORMED Lab Studies 04/22/18 04/22/18 Range/Units 04:30 04:30 WBC 15.8 H (4.8-10.8) K/uL RBC 4.04 L (4.40-5.90) Mil/uL Hgb 11.6 L (12.0-18.0) g/dL Hct 35.6 (35.0-51.0) % MCV 88.2 (80.0-94.0) fl MCH 28.7 (27.0-31.0) pg MCHC 32.5 L (33.0-37.0) g/dL RDW 16.0 H (11.5-14.5) % Plt Count 380 (130-400) K/uL MPV 8.2 (7.2-11.7) fl Neut % (Auto) 75.7 H (50.0-75.0) % Lymph % (Auto) 12.1 L (20.0-40.0) % [place] % (Auto) 11.4 H (0.0-10.0) % Eos % (Auto) 0.5 (0.0-4.0) % Baso % (Auto) 0.3 (0.0-2.0) % Neut # (Auto) 12.0 H (1.8-7.0) K/uL Lymph # (Auto) 1.9 (1.0-4.3) K/uL [place] # (Auto) 1.8 H (0.0-0.8) K/uL Eos # (Auto) 0.1 (0.0-0.7) K/uL Baso # (Auto) 0.0 (0.0-0.2) K/uL Sodium 137 (132-148) mmol/l Potassium 4.3 (3.6-5.0) MMOL/L Chloride 101 (98-107) mmol/L Carbon Dioxide 31 H (22-30) mmol/L Anion Gap 9 L (10-20) BUN 29 H (9-20) mg/dl Creatinine 1.0 (0.8-1.5) mg/dl Est GFR ( Amer) > 60 Est GFR (Non-Af Amer) > 60 Random Glucose 101 (75-110) mg/dL Calcium 8.5 (8.4-10.2) mg/dL Laboratory Results - last 24 hr 04/22/18 04/22/18 04:30 04:30 WBC 15.8 H RBC 4.04 L Hgb 11.6 L Hct 35.6 MCV 88.2 MCH 28.7 MCHC 32.5 L RDW 16.0 H Plt Count 380 MPV 8.2 Neut % (Auto) 75.7 H Lymph % (Auto) 12.1 L [place] % (Auto) 11.4 H Eos % (Auto) 0.5 Baso % (Auto) 0.3 Neut # (Auto) 12.0 H Lymph # (Auto) 1.9 [place] # (Auto) 1.8 H Eos # (Auto) 0.1 Baso # (Auto) 0.0 Sodium 137 Potassium 4.3 Chloride 101 Carbon Dioxide 31 H Anion Gap 9 L BUN 29 H Creatinine 1.0 Est GFR ( Amer) > 60 Est GFR (Non-Af Amer) > 60 Random Glucose 101 Calcium 8.5 Review of Systems - Review of Systems All systems: reviewed and no additional remarkable complaints except (no complaints) Critical Care Progress Note - Nutrition Nutrition: Nutrition Category Date Time Status Regular Diet [DIET] Diets 04/22/18 Breakfast Active Assessment/Plan (1) Pneumothorax Assessment and plan: 42 yo male with pmhx of COPD, severe persistent asthma, gastritis, pancreatitis and eosinophilic colitis, CHF, was admitted to inpatient on 04/13/18 for right sided pneumothorax s/p lung biopsy (04/08). Right chest tube placement (04/13) . (04/21) Second chest tube (04/21). Neuro: alert and oriented, reports anxiety would like a psych consult. Amitryptiline for depression. Pulm: two chest tubes in place, pneumothorax resolved on Chest CT. Would put Chest tubes to water seal, thoracic surgery managing. Rheumatologic lung disease, continue prednisone. Asthma/COPD continue Xopenex, Advair and budesonide. CV: hemodynamically stable. systiolic CHF (35-40%) currently stable. Renal: no acute issues, urine output wnl Endo: no acute issues GI: regular diet, Eosinophilic colitis ID: empiric therapry with Meropenem, Klebsiella in sputum cx. DVT proph - lovenox and SCD's GI proph - famotidine Code status - full code Critical Care Time spent 35 minutes Multi-disciplinary rounds were performed with house staff, nursing, speech therapy, respiratory therapy, pharmacy and nutrition with integrated input from the primary team/attending and other consulting services. The documented time is cumulative and includes review of patient data/exams/labs/chart review and examination of the patient on rounds and throughout the day; time is exclusive of any procedures or teaching time. Current Visit: Yes Status: Acute
--- NOTE | 2018-04-22 16:36 | CT ---
Date of service: 04/22/2018 PROCEDURE: CT Chest without contrast HISTORY: R PTX; s/p CT placement COMPARISON: 04/19/2018. CT thorax TECHNIQUE: Contiguous axial images were obtained through the chest without intravenous contrast enhancement. Sagittal and coronal reconstructions were performed. Radiation dose (DLP): 273.18 mGy-cm. This CT exam was performed using one or more of the following dose reduction techniques: Automated exposure control, adjustment of the mA and/or kV according to patient size, and/or use of iterative reconstruction technique. FINDINGS: LUNGS: Status post placement of seconds chest tube. Complete re-expansion of the right lung. Stable pulmonary nodules. MEDIASTINUM: Unremarkable thoracic aorta. No aneurysm. Normal sized heart. Main pulmonary artery unremarkable. No vascular congestion. No lymphadenopathy. PLEURA: No pneumothorax identified following placement of a 2nd chest tube in the right pleural space. Both chest tubes identified with their tips in the apices of the right abner thorax. Stable tiny pleural effusions. BONES: No fracture. No destructive lesion. UPPER ABDOMEN: Grossly unremarkable. OTHER FINDINGS: Interval decrease in subcutaneous emphysema. IMPRESSION: No pneumothorax identified following placement of a 2nd chest tube which is in satisfactory position. The position of the existing chest tube is unchanged. Stable pulmonary and pleural findings described above. Decrease in subcutaneous emphysema.
[2018-04-23] MEDS: Oxycodone/Acetaminophen 5/325 mg Tab PO PRN ×5 (00:09→23:03)
[2018-04-23] MEDS: Meropenem 1 GM in Sodium Chloride 0.9% 100 ML IVPB SCH ×3 (00:10→16:47)
[2018-04-23 05:25] LABS: BASO % 0.2 % (0.0-2.0); EOS # 0.2 K/uL (0.0-0.7); EOS % 1.4 % (0.0-4.0); HEMOGLOBIN 12.1 g/dL (12.0-18.0); LYMPH % 15.3 % (20.0-40.0); MEAN CELL VOLUME 88.4 fl (80.0-94.0); MEAN CORPUSCULAR HEMOGLOBIN 29.1 pg (27.0-31.0); MEAN PLATELET VOLUME 8.2 fl (7.2-11.7); MONO # 1.5 K/uL (0.0-0.8); MONO % 11.7 % (0.0-10.0); NEUT # 9.2 K/uL (1.8-7.0); NEUT % 71.4 % (50.0-75.0); RBC 4.14 Mil/uL (4.40-5.90); WHITE BLOOD COUNT 12.9 K/uL (4.8-10.8)
[2018-04-23 05:58] LABS: ALT/SGPT 78 U/L (21-72); AST/SGOT 28 U/L (17-59); BLOOD UREA NITROGEN 27 mg/dl (9-20); CALCIUM 8.4 mg/dL (8.4-10.2); GFR AFRICAN-AMERICAN > 60; GFR NON-AFRICAN AMERICAN > 60
[2018-04-23] MEDS: Levalbuterol 1.25 MG/3 ML Inhal Soln UD INH SCH ×6 (07:59→23:36)
--- NOTE | 2018-04-23 08:27 | CP.PCM.PN ---
Subjective - Date & Time of Evaluation Date of Evaluation: 04/23/18 Time of Evaluation: 07:30 - Subjective Subjective: Yesterday, the posterior chest tube was pulled by surgery. No acute overnight events. Pt is seen and examined this AM, sitting in chair. States that his chest pain has improved since removing one of the chest tube, but persists. Worse with deep cough. Ambulatory, good PO intake and without fever. Chest tube 45ml of sero-sangunois fluid Objective - Vital Signs/Intake and Output Vital Signs (last 24 hours): Temp Pulse Resp BP Pulse Ox 98.4 F 75 21 106/83 96 04/23/18 04:00 04/23/18 07:49 04/23/18 07:49 04/23/18 07:49 04/23/18 07:49 Intake and Output: 04/23/18 04/23/18 06:59 18:59 Intake Total 220 100 Output Total 500 Balance 220 -400 - Medications Medications: Current Medications Acetaminophen (Tylenol 325mg Tab) 650 mg PO Q4 PRN PRN Reason: Pain, Mild (1-3) Albuterol (Ventolin Hfa 90 Mcg/Actuation (8 G)) 2 puff IH Q6 PRN PRN Reason: Shortness of Breath Amitriptyline HCl (Elavil) 10 mg PO HS [facility] Last Admin: 04/22/18 21:07 Dose: 10 mg Docusate Sodium (Colace) 100 mg PO DAILY [facility] Last Admin: 04/22/18 15:18 Dose: 100 mg Enoxaparin Sodium (Lovenox) 40 mg SC DAILY [facility] PRN Reason: Protocol Last Admin: 04/22/18 11:20 Dose: 40 mg Famotidine (Pepcid) 20 mg PO HS [facility] Last Admin: 04/22/18 21:07 Dose: 20 mg Gabapentin (Neurontin) 300 mg PO TID [facility] Last Admin: 04/22/18 17:14 Dose: 300 mg Home Med (Budesonide [Entocort Ec]) 9 mg PO DAILY [facility] Last Admin: 04/22/18 11:18 Dose: Not Given Meropenem 1 gm/ Sodium (Chloride) 100 mls @ 100 mls/hr IVPB Q8 [facility] PRN Reason: Protocol Last Admin: 04/23/18 00:10 Dose: 100 mls/hr Lactobacillus Acidophilus (Bacid Acidophilus) 1 cap PO BID [facility] Levalbuterol HCl (Xopenex) 1.25 mg INH RQ4 [facility] Last Admin: 04/23/18 07:59 Dose: 1.25 mg Lidocaine (Lidoderm) 1 ea TD DAILY [facility] Last Admin: 04/22/18 08:16 Dose: 1 ea Lorazepam (Ativan) 0.5 mg IVP Q6 PRN PRN Reason: Anxiety Montelukast Sodium (Singulair) 10 mg PO HS [facility] Last Admin: 04/22/18 21:07 Dose: 10 mg Morphine Sulfate (Morphine) 4 mg IVP Q4 PRN PRN Reason: Pain, severe (8-10) Last Admin: 04/22/18 21:02 Dose: 4 mg Ondansetron HCl (Zofran Inj) 4 mg IVP Q6 PRN PRN Reason: Nausea/Vomiting Last Admin: 04/18/18 10:10 Dose: 4 mg Oxycodone/Acetaminophen (Percocet 5/325 Mg Tab) 1 tab PO Q4 PRN PRN Reason: Pain, Mild (1-3) Stop: 04/24/18 20:45 Oxycodone/Acetaminophen (Percocet 5/325 Mg Tab) 2 tab PO Q6 PRN PRN Reason: Pain, moderate (4-7) Stop: 04/24/18 20:45 Last Admin: 04/23/18 06:24 Dose: 2 tab Prednisone (Prednisone Tab) 30 mg PO DAILY [facility] Last Admin: 04/22/18 08:21 Dose: 30 mg Saccharomyces Boulardii (Florastor) 250 mg PO BID [facility] Last Admin: 04/22/18 17:17 Dose: 250 mg Fluticasone/Salmeterol (Advair Diskus 500/50) 1 puff INH Q12 [facility] Last Admin: 04/22/18 21:06 Dose: Not Given Zolpidem Tartrate (Ambien) 10 mg PO HS PRN PRN Reason: Insomnia Last Admin: 04/23/18 00:09 Dose: 10 mg - Labs Labs: 04/23/18 04:30 04/23/18 04:30 PT 11.8 Seconds (9.8-13.1) 04/21/18 05:40 INR 1.1 04/21/18 05:40 APTT 27.9 Seconds (25.6-37.1) 04/21/18 05:40 - Constitutional Appears: No Acute Distress - Head Exam Head Exam: ATRAUMATIC - Eye Exam Eye Exam: EOMI - ENT Exam ENT Exam: Mucous Membranes Moist - Respiratory Exam Respiratory Exam: Chest Wall Tenderness (R side), Decreased Breath Sounds (in RLL and RML), Wheezes (b/l ), NORMAL BREATHING PATTERN Additional comments: subcutaneous emphysema appreciated; in right thorax above the tape (T2/3 area above the R nipple) unable to appreciated in the back today Chest tube appreciated in R axialla, tape intact. Tube draining 45cc sero- sanguineous fluid - Cardiovascular Exam Cardiovascular Exam: REGULAR RHYTHM, +S1, +S2 - GI/Abdominal Exam GI & Abdominal Exam: Soft, Normal Bowel Sounds. absent: Tenderness - Extremities Exam Extremities Exam: absent: Calf Tenderness, Pedal Edema - Neurological Exam Neurological Exam: Alert, Awake - Skin Additional comments: vitalligo and tattoos noted throughout Assessment and Plan - Assessment and Plan (Free Text) Assessment: Assessment/plan: 42 YO Male with PMHx of Severe Persistent asthma, COPD, gastritis, pancreatitis , and Eosinophilic colitis is admitted for right sided pneumothorax Right Pneumothorax, -POD 10 R ant chest tube; R post chest tube pulled 04/22 -Thoracic Surgery on Consult; Dr. Yo -Pain management: Oxycodone, Morphine and Gabapentin 300 TID -CT Chest 04/22: no phenumothorax identified after placement of 2nd chest tube. Interval decrease in subcutaneous emphysema -pleural fluid for cx, LDH, protein, cell count, pending -Repeat CXR today Hospital acquired pneumonia -Improving -ID on board; Dr. Swain, recommendations appreciated -Sputum Cx: Growing Klebsiella, Sensitive to meropenem -continue with Meropenem 1gm Q8 (day 04/16) -C/w Probiotics -04/16/18; blood cx no growth final Lung mass/opacity, RLL -CT (04/08/18) showed multiple areas of patch opacity right lower lobe. Largest 3 cm mass which was selected for lung biopsy. -s/p lung biopsy 04/08/18; lung tissue with marked eosinophilia, lymphoplasmacytic infiltrate with increased IgG4/IgG ratio as well as touton type giant cells. -pulmonary on consult; biopsy finding discussed with Dr. Esposito; rec for pt to see rheumatology. -rheumatology consulted, pending recs -pt may benefit from outpatient allergy/immunology Severe Persistent asthma and COPD -Chronic -continue home medications: Xopenex INH Q4, Fluticasone/salmeterol 1 puff INH BID -Pulmonary consult, Dr. Esposito -C/w Prednisone 30mg PO QD Eosinophilic collitis -chronic, controlled -pain well controlled s/p superior hypogastric plexus block -Patient to follow up with Rheumatology, Dr. Brown as outpatient -Consult GI, Dr. Heart, recommendations appreciated (Spoke with GI: cleared for Prednisone PO daily) -Continue Famotidine 20mg PO QHS, and Budesonide 9mg PO QD -increase Amitriptyline 25mg PO QHS Depressed/Labile mood -Denies SI/HI -Consult Psych, follow up recommendations -Psych consulted; pending recs History of systolic disfunction with reduced EF -Asymptomatic -Echo 12/15/17: EF 35-40% DVT prophylaxis -SCDs -PT/OT consulted -Lovenox 40 SC daily
[2018-04-23] MEDS: Fluticasone-Salmeterol 500-50mcg Diskus INH SCH ×3 (08:39→21:11)
[2018-04-23] MEDS: Saccharomyces Boulardi 250 mg Cap PO SCH ×2 (08:42→16:47)
[2018-04-23] MEDS: Lidocaine 5% Patch TD SCH ×2 (08:42→16:56)
[2018-04-23] MEDS: Lactobacillus Acidophilus 500 MU Cap PO SCH ×2 (08:42→16:47)
[2018-04-23] MEDS: BUDESONIDE 9 MG PO SCH (08:42)
[2018-04-23] MEDS: Enoxaparin 40 mg Syringe SC SCH ×2 (08:43→08:51)
--- NOTE | 2018-04-23 08:43 | CP.PCM.PN ---
Subjective - Date & Time of Evaluation Date of Evaluation: 04/23/18 Time of Evaluation: 07:15 - Subjective Subjective: Thoracic Surgery Dr. Yo Pt S&E @bedside. sleeping in chair. posterior chest tube removed yesterday. NAEO. pain controlled. tolerating diet. Objective - Vital Signs/Intake and Output Vital Signs (last 24 hours): Temp Pulse Resp BP Pulse Ox 98.4 F 75 21 106/83 96 04/23/18 04:00 04/23/18 07:49 04/23/18 07:49 04/23/18 07:49 04/23/18 07:49 Intake and Output: 04/23/18 04/23/18 06:59 18:59 Intake Total 220 100 Output Total 500 Balance 220 -400 - Medications Medications: Current Medications Acetaminophen (Tylenol 325mg Tab) 650 mg PO Q4 PRN PRN Reason: Pain, Mild (1-3) Albuterol (Ventolin Hfa 90 Mcg/Actuation (8 G)) 2 puff IH Q6 PRN PRN Reason: Shortness of Breath Amitriptyline HCl (Elavil) 10 mg PO HS [facility] Last Admin: 04/22/18 21:07 Dose: 10 mg Docusate Sodium (Colace) 100 mg PO DAILY [facility] Last Admin: 04/22/18 15:18 Dose: 100 mg Enoxaparin Sodium (Lovenox) 40 mg SC DAILY [facility] PRN Reason: Protocol Last Admin: 04/22/18 11:20 Dose: 40 mg Famotidine (Pepcid) 20 mg PO HS [facility] Last Admin: 04/22/18 21:07 Dose: 20 mg Gabapentin (Neurontin) 300 mg PO TID [facility] Last Admin: 04/22/18 17:14 Dose: 300 mg Home Med (Budesonide [Entocort Ec]) 9 mg PO DAILY [facility] Last Admin: 04/22/18 11:18 Dose: Not Given Meropenem 1 gm/ Sodium (Chloride) 100 mls @ 100 mls/hr IVPB Q8 [facility] PRN Reason: Protocol Last Admin: 04/23/18 00:10 Dose: 100 mls/hr Lactobacillus Acidophilus (Bacid Acidophilus) 1 cap PO BID [facility] Levalbuterol HCl (Xopenex) 1.25 mg INH RQ4 [facility] Last Admin: 04/23/18 07:59 Dose: 1.25 mg Lidocaine (Lidoderm) 1 ea TD DAILY [facility] Last Admin: 04/22/18 08:16 Dose: 1 ea Lorazepam (Ativan) 0.5 mg IVP Q6 PRN PRN Reason: Anxiety Montelukast Sodium (Singulair) 10 mg PO HS [facility] Last Admin: 04/22/18 21:07 Dose: 10 mg Morphine Sulfate (Morphine) 4 mg IVP Q4 PRN PRN Reason: Pain, severe (8-10) Last Admin: 04/22/18 21:02 Dose: 4 mg Ondansetron HCl (Zofran Inj) 4 mg IVP Q6 PRN PRN Reason: Nausea/Vomiting Last Admin: 04/18/18 10:10 Dose: 4 mg Oxycodone/Acetaminophen (Percocet 5/325 Mg Tab) 1 tab PO Q4 PRN PRN Reason: Pain, Mild (1-3) Stop: 04/24/18 20:45 Oxycodone/Acetaminophen (Percocet 5/325 Mg Tab) 2 tab PO Q6 PRN PRN Reason: Pain, moderate (4-7) Stop: 04/24/18 20:45 Last Admin: 04/23/18 06:24 Dose: 2 tab Prednisone (Prednisone Tab) 30 mg PO DAILY [facility] Last Admin: 04/22/18 08:21 Dose: 30 mg Saccharomyces Boulardii (Florastor) 250 mg PO BID [facility] Last Admin: 04/22/18 17:17 Dose: 250 mg Fluticasone/Salmeterol (Advair Diskus 500/50) 1 puff INH Q12 [facility] Last Admin: 04/22/18 21:06 Dose: Not Given Zolpidem Tartrate (Ambien) 10 mg PO HS PRN PRN Reason: Insomnia Last Admin: 04/23/18 00:09 Dose: 10 mg - Labs Labs: 04/23/18 04:30 04/23/18 04:30 PT 11.8 Seconds (9.8-13.1) 04/21/18 05:40 INR 1.1 04/21/18 05:40 APTT 27.9 Seconds (25.6-37.1) 04/21/18 05:40 - Constitutional Appears: Non-toxic, No Acute Distress - Head Exam Head Exam: NORMAL INSPECTION - Eye Exam Eye Exam: Normal appearance - ENT Exam ENT Exam: Mucous Membranes Moist - Respiratory Exam Respiratory Exam: NORMAL BREATHING PATTERN. absent: Accessory Muscle Use, Respiratory Distress - Cardiovascular Exam Cardiovascular Exam: REGULAR RHYTHM. absent: Bradycardia, Tachycardia Additional comments: R ant chest tube in place, on suction dressing c/d/i - GI/Abdominal Exam GI & Abdominal Exam: Soft. absent: Distended, Tenderness - Extremities Exam Extremities Exam: Normal Inspection - Neurological Exam Neurological Exam: absent: Awake (sleeping) - Skin Skin Exam: Dry, Intact, Warm. absent: Normal Color (vitiligio) Assessment and Plan - Assessment and Plan (Free Text) Assessment: 42 y/o M POD#2 s/p thoracostomy tube placement x2 2/2 residual R pneumothorax, now resolved - cont pain management - f/u AM CXR - cont CT to sxn, possible water seal today - monitor CT output - encourage OOB to chair/IS use - GI/DVT PPx Further recs per Dr. Sanaz Shin DO PGY3
--- NOTE | 2018-04-23 10:08 | RAD ---
Date of service: 04/23/2018 PROCEDURE: CHEST RADIOGRAPH, 1 VIEW HISTORY: S/p Right chest tube, pneumothorax COMPARISON: 04/21/2018 FINDINGS: LUNGS: Clear. PLEURA: No pneumothorax. Right apical chest tube unchanged in position. A 2nd right apical chest tube previously evident on examination of 04/21/2018 has been removed. No pleural effusion. Minimal subcutaneous emphysema over right lateral chest wall. CARDIOVASCULAR: Normal. OSSEOUS STRUCTURES: No significant abnormalities. VISUALIZED UPPER ABDOMEN: Normal. OTHER FINDINGS: None. IMPRESSION: Status post removal of 1 of 2 right apical chest tubes. No pneumothorax. Minimal subcutaneous emphysema over right lateral chest wall.
--- NOTE | 2018-04-23 11:51 | CP.PCM.CON ---
History of Present Illness - History of Present Illness History of Present Illness: Psychiatry consult note CC: "I have so many medical problems." HPI: 42 y/o M s/p thoracostomy tube placement x2 2/2 residual R pneumothorax, now resolved. Patient reports that he feels depressed in the hospital, but reports that overall his mood is stable and he does not feel depressed when he is medically well and not in the hospital. He does not believe he needs medications to treat depression. He reports intermittent feelings of anxiety and requested to be placed on Xanax. Ground Water Technician provided psychoeducation that benzos can cause respiratory depression, especially when taken with opiates. Patient also requested to be placed on Adderall to help him focus. Ground Water Technician informed patient that he would need a comprehensive outpatient evaluation to determine if he meets criteria for ADHD and that he would need continued outpatient monitoring if he would need to be placed on this medication. NO AH/VH /SI/HI/paranoia/delusions. 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 NO AH/VH/SI/HI, fair I /J Impression: 42 yo M w/ possible adjustment disorder, does not meet criteria for MDD or MAURISIO at this time. No acute inpatient psychiatric admission indicated. Patient may benefit from outpatient psychiatric treatment and therapy if he is interested. Past Patient History - Infectious Disease Hx of Infectious Diseases: None - Past Medical History & Family History Past Medical History?: Yes - Past Social History Smoking Status: Never Smoked Home Situation {Lives}: With Family - CARDIAC Hx Congestive Heart Failure: Yes - PULMONARY Hx Asthma: Yes Hx Chronic Obstructive Pulmonary Disease (COPD): Yes Hx Pneumonia: Yes - NEUROLOGICAL Hx Neurological Disorder: No - HEENT Hx HEENT Problems: No - RENAL Hx Chronic Kidney Disease: No - ENDOCRINE/METABOLIC Hx Endocrine Disorders: No - HEMATOLOGICAL/ONCOLOGICAL Hx Blood Disorders: No - INTEGUMENTARY Hx Dermatological Problems: No - MUSCULOSKELETAL/RHEUMATOLOGICAL Hx Falls: No - GASTROINTESTINAL Hx Diverticulitis: Yes Hx Gastritis: Yes Hx Pancreatitis: Yes - GENITOURINARY/GYNECOLOGICAL Hx Genitourinary Disorders: No - PSYCHIATRIC Hx Substance Use: No - SURGICAL HISTORY Hx Surgeries: Yes Other/Comment: I&D LEG ABSCESS - ANESTHESIA Hx Anesthesia: Yes Hx Anesthesia Reactions: No Hx Malignant Hyperthermia: No Meds Allergies/Adverse Reactions: Allergies Allergy/AdvReac Type Severity Reaction Status Date / Time wheat Allergy PAIN Verified 04/07/18 10:57 - Medications Medications: Current Medications Acetaminophen (Tylenol 325mg Tab) 650 mg PO Q4 PRN PRN Reason: Pain, Mild (1-3) Albuterol (Ventolin Hfa 90 Mcg/Actuation (8 G)) 2 puff IH Q6 PRN PRN Reason: Shortness of Breath Amitriptyline HCl (Elavil) 25 mg PO HS [facility] Docusate Sodium (Colace) 100 mg PO DAILY [facility] Last Admin: 04/23/18 08:42 Dose: 100 mg Enoxaparin Sodium (Lovenox) 40 mg SC DAILY [facility] PRN Reason: Protocol Last Admin: 04/23/18 08:51 Dose: Not Given Famotidine (Pepcid) 20 mg PO HS [facility] Last Admin: 04/22/18 21:07 Dose: 20 mg Gabapentin (Neurontin) 300 mg PO TID [facility] Last Admin: 04/23/18 08:45 Dose: 300 mg Home Med (Budesonide [Entocort Ec]) 9 mg PO DAILY [facility] Last Admin: 04/23/18 08:42 Dose: 9 mg Meropenem 1 gm/ Sodium (Chloride) 100 mls @ 100 mls/hr IVPB Q8 [facility] PRN Reason: Protocol Last Admin: 04/23/18 08:43 Dose: 100 mls/hr Lactobacillus Acidophilus (Bacid Acidophilus) 1 cap PO BID [facility] Last Admin: 04/23/18 08:42 Dose: 1 cap Levalbuterol HCl (Xopenex) 1.25 mg INH RQ4 [facility] Last Admin: 04/23/18 11:09 Dose: 1.25 mg Lidocaine (Lidoderm) 1 ea TD DAILY [facility] Last Admin: 04/23/18 08:42 Dose: 1 ea Lorazepam (Ativan) 0.5 mg IVP Q6 PRN PRN Reason: Anxiety Montelukast Sodium (Singulair) 10 mg PO HS [facility] Last Admin: 04/22/18 21:07 Dose: 10 mg Morphine Sulfate (Morphine) 4 mg IVP Q4 PRN PRN Reason: Pain, severe (8-10) Last Admin: 04/22/18 21:02 Dose: 4 mg Ondansetron HCl (Zofran Inj) 4 mg IVP Q6 PRN PRN Reason: Nausea/Vomiting Last Admin: 04/18/18 10:10 Dose: 4 mg Oxycodone/Acetaminophen (Percocet 5/325 Mg Tab) 1 tab PO Q4 PRN PRN Reason: Pain, Mild (1-3) Stop: 04/24/18 20:45 Oxycodone/Acetaminophen (Percocet 5/325 Mg Tab) 2 tab PO Q6 PRN PRN Reason: Pain, moderate (4-7) Stop: 04/24/18 20:45 Last Admin: 04/23/18 11:19 Dose: 2 tab Prednisone (Prednisone Tab) 30 mg PO DAILY [facility] Last Admin: 04/23/18 08:45 Dose: 30 mg Saccharomyces Boulardii (Florastor) 250 mg PO BID [facility] Last Admin: 04/23/18 08:42 Dose: 250 mg Fluticasone/Salmeterol (Advair Diskus 500/50) 1 puff INH Q12 [facility] Last Admin: 04/23/18 10:58 Dose: Not Given Zolpidem Tartrate (Ambien) 10 mg PO HS PRN PRN Reason: Insomnia Last Admin: 04/23/18 00:09 Dose: 10 mg Results - Vital Signs Recent Vital Signs: Last Vital Signs Temp 98.4 F 04/23/18 10:00 Pulse 78 04/23/18 10:00 Resp 21 04/23/18 07:49 BP 112/68 04/23/18 10:00 Pulse Ox 96 04/23/18 07:49 - Labs Result Diagrams: 04/23/18 04:30 04/23/18 04:30 Labs: Laboratory Results - last 24 hr 04/22/18 04/23/18 04/23/18 16:17 04:30 04:30 WBC 12.9 H RBC 4.14 L Hgb 12.1 Hct 36.6 MCV 88.4 MCH 29.1 MCHC 33.0 RDW 16.0 H Plt Count 395 MPV 8.2 Neut % (Auto) 71.4 Lymph % (Auto) 15.3 L [place] % (Auto) 11.7 H Eos % (Auto) 1.4 Baso % (Auto) 0.2 Neut # (Auto) 9.2 H Lymph # (Auto) 2.0 [place] # (Auto) 1.5 H Eos # (Auto) 0.2 Baso # (Auto) 0.0 Sodium 137 Potassium 4.3 Chloride 103 Carbon Dioxide 29 Anion Gap 9 L BUN 27 H Creatinine 0.9 Est GFR ( Amer) > 60 Est GFR (Non-Af Amer) > 60 Random Glucose 110 Calcium 8.4 Total Bilirubin 0.6 AST 28 ALT 78 H D Alkaline Phosphatase 110 Lactate Dehydrogenase 318 Total Protein 6.2 L Albumin 3.0 L Globulin 3.1 Albumin/Globulin Ratio 1.0 Fluid Source Pleural/thoracentesi
--- NOTE | 2018-04-23 13:03 | CP.PCM.PN ---
Subjective - Date & Time of Evaluation Date of Evaluation: 04/23/18 Time of Evaluation: 12:59 - Subjective Subjective: Pt s/e. No c/o. chest tube-No air leak. cxr-No pneumothorax. Chest tube in the apex-good position. a/p: 1. No Pneumothorax. 2. Continue chest tube to suction. 3. Water seal on Thursday. 4. Clamp the tube on Thursday. 5 d/c tube on Thursday. 6. Daily cxr. Objective - Vital Signs/Intake and Output Vital Signs (last 24 hours): Temp Pulse Resp BP Pulse Ox 98.4 F 78 21 112/68 96 04/23/18 10:00 04/23/18 10:00 04/23/18 07:49 04/23/18 10:00 04/23/18 07:49 Intake and Output: 04/23/18 04/23/18 06:59 18:59 Intake Total 220 200 Output Total 500 Balance 220 -300 - Medications Medications: Current Medications Acetaminophen (Tylenol 325mg Tab) 650 mg PO Q4 PRN PRN Reason: Pain, Mild (1-3) Albuterol (Ventolin Hfa 90 Mcg/Actuation (8 G)) 2 puff IH Q6 PRN PRN Reason: Shortness of Breath Amitriptyline HCl (Elavil) 25 mg PO [facility] Docusate Sodium (Colace) 100 mg PO DAILY [facility] Last Admin: 04/23/18 08:42 Dose: 100 mg Enoxaparin Sodium (Lovenox) 40 mg SC DAILY [facility] PRN Reason: Protocol Last Admin: 04/23/18 08:51 Dose: Not Given Famotidine (Pepcid) 20 mg PO HS [facility] Last Admin: 04/22/18 21:07 Dose: 20 mg Gabapentin (Neurontin) 300 mg PO TID [facility] Last Admin: 04/23/18 08:45 Dose: 300 mg Home Med (Budesonide [Entocort Ec]) 9 mg PO DAILY [facility] Last Admin: 04/23/18 08:42 Dose: 9 mg Meropenem 1 gm/ Sodium (Chloride) 100 mls @ 100 mls/hr IVPB Q8 [facility] PRN Reason: Protocol Last Admin: 04/23/18 08:43 Dose: 100 mls/hr Lactobacillus Acidophilus (Bacid Acidophilus) 1 cap PO BID [facility] Last Admin: 08/17/18 08:42 Dose: 1 cap Levalbuterol HCl (Xopenex) 1.25 mg INH RQ4 [facility] Last Admin: 04/23/18 11:09 Dose: 1.25 mg Lidocaine (Lidoderm) 1 ea TD DAILY [facility] Last Admin: 04/23/18 08:42 Dose: 1 ea Lorazepam (Ativan) 0.5 mg IVP Q6 PRN PRN Reason: Anxiety Montelukast Sodium (Singulair) 10 mg PO HS [facility] Last Admin: 04/22/18 21:07 Dose: 10 mg Morphine Sulfate (Morphine) 4 mg IVP Q4 PRN PRN Reason: Pain, severe (8-10) Last Admin: 04/22/18 21:02 Dose: 4 mg Ondansetron HCl (Zofran Inj) 4 mg IVP Q6 PRN PRN Reason: Nausea/Vomiting Last Admin: 04/18/18 10:10 Dose: 4 mg Oxycodone/Acetaminophen (Percocet 5/325 Mg Tab) 1 tab PO Q4 PRN PRN Reason: Pain, Mild (1-3) Stop: 04/24/18 20:45 Oxycodone/Acetaminophen (Percocet 5/325 Mg Tab) 2 tab PO Q6 PRN PRN Reason: Pain, moderate (4-7) Stop: 04/24/18 20:45 Last Admin: 04/23/18 11:19 Dose: 2 tab Prednisone (Prednisone Tab) 30 mg PO DAILY [facility] Last Admin: 04/23/18 08:45 Dose: 30 mg Saccharomyces Boulardii (Florastor) 250 mg PO BID [facility] Last Admin: 04/23/18 08:42 Dose: 250 mg Fluticasone/Salmeterol (Advair Diskus 500/50) 1 puff INH Q12 [facility] Last Admin: 04/23/18 10:58 Dose: Not Given Zolpidem Tartrate (Ambien) 10 mg PO HS PRN PRN Reason: Insomnia Last Admin: 04/23/18 00:09 Dose: 10 mg - Labs Labs: 04/23/18 04:30 04/23/18 04:30 PT 11.8 Seconds (9.8-13.1) 04/21/18 05:40 INR 1.1 04/21/18 05:40 APTT 27.9 Seconds (25.6-37.1) 04/21/18 05:40
--- NOTE | 2018-04-23 14:42 | CP.PCM.PN ---
Subjective - Date & Time of Evaluation Date of Evaluation: 04/23/18 Time of Evaluation: 14:42 - Subjective Subjective: Id Note- pt. seen and examined today in ICU. Patient is s/p one of the chest tubes removed today. denies any sob or any fever. denies any further diarrhea. Objective - Vital Signs/Intake and Output Vital Signs (last 24 hours): Temp Pulse Resp BP Pulse Ox 98.4 F 78 21 112/68 96 04/23/18 10:00 04/23/18 10:00 04/23/18 07:49 04/23/18 10:00 04/23/18 07:49 Intake and Output: 04/23/18 04/23/18 06:59 18:59 Intake Total 220 200 Output Total 500 Balance 220 -300 - Medications Medications: Current Medications Acetaminophen (Tylenol 325mg Tab) 650 mg PO Q4 PRN PRN Reason: Pain, Mild (1-3) Albuterol (Ventolin Hfa 90 Mcg/Actuation (8 G)) 2 puff IH Q6 PRN PRN Reason: Shortness of Breath Amitriptyline HCl (Elavil) 25 mg PO HS [facility] Docusate Sodium (Colace) 100 mg PO DAILY [facility] Last Admin: 04/23/18 08:42 Dose: 100 mg Enoxaparin Sodium (Lovenox) 40 mg SC DAILY [facility] PRN Reason: Protocol Last Admin: 04/23/18 08:51 Dose: Not Given Famotidine (Pepcid) 20 mg PO HS [facility] Last Admin: 04/22/18 21:07 Dose: 20 mg Gabapentin (Neurontin) 300 mg PO TID [facility] Last Admin: 04/23/18 13:15 Dose: 300 mg Home Med (Budesonide [Entocort Ec]) 9 mg PO DAILY [facility] Last Admin: 04/23/18 08:42 Dose: 9 mg Meropenem 1 gm/ Sodium (Chloride) 100 mls @ 100 mls/hr IVPB Q8 [facility] PRN Reason: Protocol Last Admin: 04/23/18 08:43 Dose: 100 mls/hr Lactobacillus Acidophilus (Bacid Acidophilus) 1 cap PO BID [facility] Last Admin: 04/23/18 08:42 Dose: 1 cap Levalbuterol HCl (Xopenex) 1.25 mg INH RQ4 [facility] Last Admin: 04/23/18 11:09 Dose: 1.25 mg Lidocaine (Lidoderm) 1 ea TD DAILY [facility] Last Admin: 04/23/18 08:42 Dose: 1 ea Lorazepam (Ativan) 0.5 mg IVP Q6 PRN PRN Reason: Anxiety Montelukast Sodium (Singulair) 10 mg PO HS [facility] Last Admin: 04/22/18 21:07 Dose: 10 mg Morphine Sulfate (Morphine) 4 mg IVP Q4 PRN PRN Reason: Pain, severe (8-10) Last Admin: 04/22/18 21:02 Dose: 4 mg Ondansetron HCl (Zofran Inj) 4 mg IVP Q6 PRN PRN Reason: Nausea/Vomiting Last Admin: 04/18/18 10:10 Dose: 4 mg Oxycodone/Acetaminophen (Percocet 5/325 Mg Tab) 1 tab PO Q4 PRN PRN Reason: Pain, Mild (1-3) Stop: 04/24/18 20:45 Oxycodone/Acetaminophen (Percocet 5/325 Mg Tab) 2 tab PO Q6 PRN PRN Reason: Pain, moderate (4-7) Stop: 04/24/18 20:45 Last Admin: 04/23/18 11:19 Dose: 2 tab Prednisone (Prednisone Tab) 30 mg PO DAILY [facility] Last Admin: 04/23/18 08:45 Dose: 30 mg Saccharomyces Boulardii (Florastor) 250 mg PO BID [facility] Last Admin: 04/23/18 08:42 Dose: 250 mg Fluticasone/Salmeterol (Advair Diskus 500/50) 1 puff INH Q12 [facility] Last Admin: 04/23/18 10:58 Dose: Not Given Zolpidem Tartrate (Ambien) 10 mg PO HS PRN PRN Reason: Insomnia Last Admin: 04/23/18 00:09 Dose: 10 mg - Labs Labs: - Additional Findings Additional findings: - Constitutional Appears: Non-toxic, No Acute Distress - Head Exam Head Exam: ATRAUMATIC - Eye Exam Eye Exam: EOMI, PERRL - ENT Exam ENT Exam: Normal Oropharynx - Neck Exam Neck exam: Positive for: Full Rom - Respiratory Exam Respiratory Exam: NORMAL BREATHING PATTERN Additional comments: has 1 right chest tube in place No wheezing aeration heard b/l less on the right base - Cardiovascular Exam Cardiovascular Exam: RRR, +S1, +S2 - GI/Abdominal Exam GI & Abdominal Exam: Normal Bowel Sounds, Soft Additional comments: NT, ND - Extremities Exam Additional comments: no edema B/l Le - Neurological Exam Neurological exam: Alert, Oriented x 3 Laboratory Results - last 72 hr 04/21/18 04/21/18 04/21/18 05:40 05:40 05:40 WBC 13.1 H RBC 4.17 L Hgb 12.0 Hct 36.6 MCV 87.6 MCH 28.7 MCHC 32.8 L RDW 15.7 H Plt Count 379 MPV 8.2 Neut % (Auto) 62.3 Lymph % (Auto) 20.9 [place] % (Auto) 11.1 H Eos % (Auto) 5.6 H Baso % (Auto) 0.1 Neut # (Auto) 8.1 H Lymph # (Auto) 2.7 [place] # (Auto) 1.4 H Eos # (Auto) 0.7 Baso # (Auto) 0.0 PT 11.8 INR 1.1 APTT 27.9 Sodium 138 Potassium 3.8 Chloride 102 Carbon Dioxide 32 H Anion Gap 8 L BUN 21 H Creatinine 0.8 Est GFR ( Amer) > 60 Est GFR (Non-Af Amer) > 60 Random Glucose 77 Calcium 8.4 Phosphorus 4.0 Magnesium 2.1 Total Bilirubin AST ALT Alkaline Phosphatase Lactate Dehydrogenase Total Protein Albumin Globulin Albumin/Globulin Ratio Fluid Source 04/22/18 04/22/18 04/22/18 04:30 04:30 16:17 WBC 15.8 H RBC 4.04 L Hgb 11.6 L Hct 35.6 MCV 88.2 MCH 28.7 MCHC 32.5 L RDW 16.0 H Plt Count 380 MPV 8.2 Neut % (Auto) 75.7 H Lymph % (Auto) 12.1 L [place] % (Auto) 11.4 H Eos % (Auto) 0.5 Baso % (Auto) 0.3 Neut # (Auto) 12.0 H Lymph # (Auto) 1.9 [place] # (Auto) 1.8 H Eos # (Auto) 0.1 Baso # (Auto) 0.0 PT INR APTT Sodium 137 Potassium 4.3 Chloride 101 Carbon Dioxide 31 H Anion Gap 9 L BUN 29 H Creatinine 1.0 Est GFR ( Amer) > 60 Est GFR (Non-Af Amer) > 60 Random Glucose 101 Calcium 8.5 Phosphorus Magnesium Total Bilirubin AST ALT Alkaline Phosphatase Lactate Dehydrogenase Total Protein Albumin Globulin Albumin/Globulin Ratio Fluid Source Pleural/thoracentesi 04/23/18 04/23/18 04:30 04:30 WBC 12.9 H RBC 4.14 L Hgb 12.1 Hct 36.6 MCV 88.4 MCH 29.1 MCHC 33.0 RDW 16.0 H Plt Count 395 MPV 8.2 Neut % (Auto) 71.4 Lymph % (Auto) 15.3 L [place] % (Auto) 11.7 H Eos % (Auto) 1.4 Baso % (Auto) 0.2 Neut # (Auto) 9.2 H Lymph # (Auto) 2.0 [place] # (Auto) 1.5 H Eos # (Auto) 0.2 Baso # (Auto) 0.0 PT INR APTT Sodium 137 Potassium 4.3 Chloride 103 Carbon Dioxide 29 Anion Gap 9 L BUN 27 H Creatinine 0.9 Est GFR ( Amer) > 60 Est GFR (Non-Af Amer) > 60 Random Glucose 110 Calcium 8.4 Phosphorus Magnesium Total Bilirubin 0.6 AST 28 ALT 78 H D Alkaline Phosphatase 110 Lactate Dehydrogenase 318 Total Protein 6.2 L Albumin 3.0 L Globulin 3.1 Albumin/Globulin Ratio 1.0 Fluid Source Microbiology 04/22/18 16:17 Pleural Fluid Gram Stain - Final 04/22/18 16:17 Pleural Fluid Body Fluid Culture - Preliminary NO GROWTH AFTER 24 HOURS 04/21/18 09:58 Chest Gram Stain - Final 04/21/18 09:58 Chest Wound Culture - Preliminary NO GROWTH AFTER 24 HOURS 04/21/18 09:58 Chest Gram Stain - Final 04/21/18 09:58 Chest Wound Culture - Preliminary NO GROWTH AFTER 24 HOURS 04/21/18 19:05 [place]aris MRSA Culture (Admit) - Final MRSA NOT DETECTED 04/16/18 20:10 Blood-Venous Blood Culture - Final NO GROWTH AFTER 5 DAYS 04/16/18 20:10 Blood-Venous Gram Stain - Final TEST NOT PERFORMED 04/15/18 18:55 Blood Blood Culture - Final NO GROWTH AFTER 5 DAYS 04/15/18 18:55 Blood Gram Stain - Final TEST NOT PERFORMED 04/15/18 18:45 Blood Blood Culture - Final NO GROWTH AFTER 5 DAYS 04/15/18 18:45 Blood Gram Stain - Final TEST NOT PERFORMED 04/18/18 18:19 [place] MRSA Culture (Admit) - Final MRSA NOT DETECTED 04/15/18 19:45 Urine,Clean Catch Urine Culture - Final No Growth (<1,000 CFU/ML) 04/15/18 19:45 Sputum Gram Stain - Final 04/15/18 19:45 Sputum Sputum Culture - Final Klebsiella Pneumoniae Ssp Pneu 04/14/18 10:45 Nose MRSA Culture (Admit) - Final MRSA NOT DETECTED Assessment and Plan (1) Pneumothorax Status: Acute (2) COPD (chronic obstructive pulmonary disease) Status: Acute (3) Eosinophilic colitis Status: Acute - Assessment and Plan (Free Text) Assessment: A/P- 42 year old male with extensive medical history including multiple bouts of abdominal pian, pancreatitis, colitis, gastritis, pulmonary nodules, copd has had extensive work up done and was diagnosed with eosinophilic colitis via colonoscopy . recent lung biopsy for further eval of the pulm nodules and developed PTX s/p CT and now has one more ct for nonresolving PTX. s/p one chest tube removal, now has 1 CT remaining afebrile Leukocytosis trending down. sputum cx- Klebsiella pneumonia ( pansensitive) UA- neg blood cx- neg x 2 urine cx- neg pleural fluid cx- neg PLan- advise to continue with IV meropenm since the VICENTE of the klebsiella is very good to this day #8. advise total 10 days of the meropnem. follow up lung biopsy result . advise to continue with probiotics while on IV abx. CT management as per Ct surgery and ICU team. all labs and imaging reviewed. Pt. verbalizes full understanding of all above and agrees with above plan of care. ICU time 40 min.
--- NOTE | 2018-04-23 14:48 | CP.CCUPN ---
CCU Subjective - Physician Review Events Since Last Encounter (Free Text): 04/23/18 14:46 no complaints, clinically improved and stable. CCU Objective - Vital Signs / Intake & Output Intake and Output (Last 8hrs): Intake & Output 04/22/18 04/23/18 04/23/18 22:59 06:59 14:59 Intake Total 220 100 200 Output Total 400 500 Balance -180 100 -300 Intake: Intake, Piggyback 100 100 200 Oral 120 Output: Urine 400 500 Urine, Voided 400 500 - Physical Exam Head: Positive for: Atraumatic Pupils: Positive for: PERRL Extroacular Muscles: Positive for: EOMI Conjunctiva: Positive for: Normal Mouth: Positive for: Moist Mucous Membranes Neck: Positive for: Normal Range of Motion Respiratory/Chest: Positive for: Wheezes (mild, with prolong expiratory phase). Negative for: Respiratory Distress, Accessory Muscle Use, Retracting, Rhonchi , Tachypneic Cardiovascular: Positive for: Regular Rate and Rhythm, Normal S1, S2 Abdomen: Positive for: Normal Bowel Sounds. Negative for: Tenderness, Distention Upper Extremity: Positive for: Normal Inspection. Negative for: Edema Lower Extremity: Positive for: Normal Inspection. Negative for: Edema, CALF TENDERNESS Neurological: Positive for: Speech Normal Skin: Positive for: Other (generalized vitiligo) Psychiatric: Positive for: Alert - Medications Active Medications: Active Medications Generic Name Dose Route Start Last Admin Trade Name Freq PRN Reason Stop Dose Admin Acetaminophen 650 mg 04/17/18 23:56 Tylenol 325mg Tab PO Q4 PRN Pain, Mild (1-3) Albuterol 2 puff 04/17/18 23:56 Ventolin Hfa 90 Mcg/Actuation (8 G) IH Q6 PRN Shortness of Breath Amitriptyline HCl 25 mg 04/23/18 22:00 Elavil PO HS [facility] Docusate Sodium 100 mg 04/18/18 09:00 04/23/18 08:42 Colace PO 100 mg DAILY [facility] Administration Enoxaparin Sodium 40 mg 04/18/18 09:00 04/23/18 08:51 Lovenox SC Not Given DAILY [facility] Protocol Famotidine 20 mg 04/18/18 22:00 04/22/18 21:07 Pepcid PO 20 mg HS [facility] Administration Gabapentin 300 mg 04/18/18 09:00 04/23/18 13:15 Neurontin PO 300 mg TID [facility] Administration Home Med 9 mg 04/18/18 09:00 04/23/18 08:42 Budesonide [Entocort Ec] PO 9 mg DAILY [facility] Administration Meropenem 1 gm/ Sodium 100 mls @ 100 mls/hr 04/18/18 01:00 04/23/18 08:43 Chloride IVPB 100 mls/hr Q8 [facility] Administration Protocol Lactobacillus Acidophilus 1 cap 04/22/18 17:00 04/23/18 08:42 Bacid Acidophilus PO 1 cap BID [facility] Administration Levalbuterol HCl 1.25 mg 04/18/18 00:00 04/23/18 11:09 Xopenex INH 1.25 mg RQ4 [facility] Administration Lidocaine 1 ea 04/22/18 09:00 04/23/18 08:42 Lidoderm TD 1 ea DAILY [facility] Administration Lorazepam 0.5 mg 04/22/18 15:56 Ativan IVP Q6 PRN Anxiety Montelukast Sodium 10 mg 04/18/18 22:00 04/22/18 21:07 Singulair PO 10 mg HS [facility] Administration Morphine Sulfate 4 mg 04/21/18 14:45 04/22/18 21:02 Morphine IVP 4 mg Q4 PRN Administration Pain, severe (8-10) Ondansetron HCl 4 mg 04/18/18 09:52 04/18/18 10:10 Zofran Inj IVP 4 mg Q6 PRN Administration Nausea/Vomiting Oxycodone/Acetaminophen 1 tab 04/21/18 20:44 Percocet 5/325 Mg Tab PO 04/24/18 20:45 Q4 PRN Pain, Mild (1-3) Oxycodone/Acetaminophen 2 tab 04/21/18 20:44 04/23/18 11:19 Percocet 5/325 Mg Tab PO 04/24/18 20:45 2 tab Q6 PRN Administration Pain, moderate (4-7) Prednisone 30 mg 04/19/18 09:00 04/23/18 08:45 Prednisone Tab PO 30 mg DAILY [facility] Administration Saccharomyces Boulardii 250 mg 04/19/18 17:00 04/23/18 08:42 Florastor PO 250 mg BID [facility] Administration Fluticasone/Salmeterol 1 puff 04/18/18 09:00 08/17/18 10:58 Advair Diskus 500/50 INH Not Given Q12 [facility] Zolpidem Tartrate 10 mg 04/22/18 23:16 04/23/18 00:09 Ambien PO 10 mg HS PRN Administration Insomnia - Patient Studies Lab Studies: Microbiology Studies 04/22/18 16:17 Gram Stain - Final Pleural Fluid Body Fluid Culture - Preliminary NO GROWTH AFTER 24 HOURS 04/21/18 09:58 Gram Stain - Final Chest Wound Culture - Preliminary NO GROWTH AFTER 24 HOURS 04/21/18 09:58 Gram Stain - Final Chest Wound Culture - Preliminary NO GROWTH AFTER 24 HOURS 04/21/18 19:05 MRSA Culture (Admit) - Final [facility]aris MRSA NOT DETECTED Lab Studies 04/23/18 04/23/18 04/22/18 Range/Units 04:30 04:30 16:17 WBC 12.9 H (4.8-10.8) K/uL RBC 4.14 L (4.40-5.90) Mil/uL Hgb 12.1 (12.0-18.0) g/dL Hct 36.6 (35.0-51.0) % MCV 88.4 (80.0-94.0) fl MCH 29.1 (27.0-31.0) pg MCHC 33.0 (33.0-37.0) g/dL RDW 16.0 H (11.5-14.5) % Plt Count 395 (130-400) K/uL MPV 8.2 (7.2-11.7) fl Neut % (Auto) 71.4 (50.0-75.0) % Lymph % (Auto) 15.3 L (20.0-40.0) % [place] % (Auto) 11.7 H (0.0-10.0) % Eos % (Auto) 1.4 (0.0-4.0) % Baso % (Auto) 0.2 (0.0-2.0) % Neut # (Auto) 9.2 H (1.8-7.0) K/uL Lymph # (Auto) 2.0 (1.0-4.3) K/uL [place] # (Auto) 1.5 H (0.0-0.8) K/uL Eos # (Auto) 0.2 (0.0-0.7) K/uL Baso # (Auto) 0.0 (0.0-0.2) K/uL Sodium 137 (132-148) mmol/l Potassium 4.3 (3.6-5.0) MMOL/L Chloride 103 (98-107) mmol/L Carbon Dioxide 29 (22-30) mmol/L Anion Gap 9 L (10-20) BUN 27 H (9-20) mg/dl Creatinine 0.9 (0.8-1.5) mg/dl Est GFR ( Amer) > 60 Est GFR (Non-Af Amer) > 60 Random Glucose 110 (75-110) mg/dL Calcium 8.4 (8.4-10.2) mg/dL Total Bilirubin 0.6 (0.2-1.3) mg/dl AST 28 (17-59) U/L ALT 78 H D (21-72) U/L Alkaline Phosphatase 110 (38-126) U/L Lactate Dehydrogenase 318 (313-618) U/L Total Protein 6.2 L (6.3-8.2) G/DL Albumin 3.0 L (3.5-5.0) g/dL Globulin 3.1 (2.2-3.9) gm/dL Albumin/Globulin Ratio 1.0 (1.0-2.1) Fluid Source Pleural/thoracentesi Laboratory Results - last 24 hr 04/22/18 04/23/18 04/23/18 16:17 04:30 04:30 WBC 12.9 H RBC 4.14 L Hgb 12.1 Hct 36.6 MCV 88.4 MCH 29.1 MCHC 33.0 RDW 16.0 H Plt Count 395 MPV 8.2 Neut % (Auto) 71.4 Lymph % (Auto) 15.3 L [place] % (Auto) 11.7 H Eos % (Auto) 1.4 Baso % (Auto) 0.2 Neut # (Auto) 9.2 H Lymph # (Auto) 2.0 [place] # (Auto) 1.5 H Eos # (Auto) 0.2 Baso # (Auto) 0.0 Sodium 137 Potassium 4.3 Chloride 103 Carbon Dioxide 29 Anion Gap 9 L BUN 27 H Creatinine 0.9 Est GFR ( Amer) > 60 Est GFR (Non-Af Amer) > 60 Random Glucose 110 Calcium 8.4 Total Bilirubin 0.6 AST 28 ALT 78 H D Alkaline Phosphatase 110 Lactate Dehydrogenase 318 Total Protein 6.2 L Albumin 3.0 L Globulin 3.1 Albumin/Globulin Ratio 1.0 Fluid Source Pleural/thoracentesi Review of Systems - Review of Systems All systems: reviewed and no additional remarkable complaints except (no complaints) Critical Care Progress Note - Nutrition Nutrition: Nutrition Category Date Time Status Regular Diet [DIET] Diets 04/22/18 Breakfast Active Assessment/Plan (1) Pneumothorax Assessment and plan: 42 yo male with pmhx of COPD, severe persistent asthma, gastritis, pancreatitis and eosinophilic colitis, CHF, was admitted to inpatient on 04/13/18 for right sided pneumothorax s/p lung biopsy (04/08). Right chest tube placement (04/13) . Second chest tube placed (04/21). (04/22) one chest tube removed. Neuro: alert and oriented, reports anxiety would like a psych consult. Amitryptiline for depression. Pulm: one chest tubes in place (one removed (04/22), pneumothorax resolved on Chest CT. Would put Chest tubes to water seal, thoracic surgery managing. Rheumatologic lung disease, continue prednisone. Asthma/COPD continue Xopenex, Advair and budesonide. CV: hemodynamically stable. systiolic CHF (35-40%) currently stable. Renal: no acute issues, urine output wnl Endo: no acute issues GI: regular diet, Eosinophilic colitis ID: empiric therapry with Meropenem, Klebsiella in sputum cx. DVT proph - lovenox and SCD's GI proph - famotidine Code status - full code Critical Care Time spent 35 minutes Multi-disciplinary rounds were performed with house staff, nursing, speech therapy, respiratory therapy, pharmacy and nutrition with integrated input from the primary team/attending and other consulting services. The documented time is cumulative and includes review of patient data/exams/labs/chart review and examination of the patient on rounds and throughout the day; time is exclusive of any procedures or teaching time. Current Visit: Yes Status: Acute
[2018-04-24] MEDS: Meropenem 1 GM in Sodium Chloride 0.9% 100 ML IVPB SCH ×3 (02:00→17:55)
[2018-04-24] MEDS: Levalbuterol 1.25 MG/3 ML Inhal Soln UD INH SCH ×5 (04:01→19:09)
[2018-04-24 04:44] LABS: BASO % 0.3 % (0.0-2.0); EOS # 0.3 K/uL (0.0-0.7); EOS % 2.5 % (0.0-4.0); HEMOGLOBIN 12.4 g/dL (12.0-18.0); LYMPH # 2.6 K/uL (1.0-4.3); LYMPH % 19.6 % (20.0-40.0); MEAN CELL VOLUME 88.7 fl (80.0-94.0); MEAN CORPUSCULAR HEMOGLOBIN 28.9 pg (27.0-31.0); MEAN CORPUSCULAR HGB CONC 32.6 g/dL (33.0-37.0); MEAN PLATELET VOLUME 8.1 fl (7.2-11.7); MONO # 1.6 K/uL (0.0-0.8); MONO % 12.5 % (0.0-10.0); NEUT # 8.5 K/uL (1.8-7.0); NEUT % 65.1 % (50.0-75.0); RBC 4.3 Mil/uL (4.40-5.90); WHITE BLOOD COUNT 13.1 K/uL (4.8-10.8)
[2018-04-24 05:04] LABS: BLOOD UREA NITROGEN 34 mg/dl (9-20); CALCIUM 8.6 mg/dL (8.4-10.2); GFR AFRICAN-AMERICAN > 60; GFR NON-AFRICAN AMERICAN > 60
[2018-04-24] MEDS: Oxycodone/Acetaminophen 5/325 mg Tab PO PRN ×3 (06:14→21:28)
--- NOTE | 2018-04-24 08:19 | CP.CCUPN ---
CCU Subjective - Physician Review Events Since Last Encounter (Free Text): Patient awake, no distress, no fever, no pressors, events reviewed CCU Objective - Vital Signs / Intake & Output Vital Signs (Last 4 hours): Vital Signs Pulse Resp BP Pulse Ox 04/24/18 06:00 78 17 110/72 97 Intake and Output (Last 8hrs): Intake & Output 04/23/18 04/24/18 04/24/18 22:59 06:59 14:59 Intake Total 900 100 Output Total 400 400 Balance 500 -300 Intake: IV 0 Intake, Piggyback 100 100 Oral 800 Output: Urine 400 400 Urine, Voided 400 400 Other: # Voids Urine, Voided 600 325 - Physical Exam Head: Positive for: Atraumatic Pupils: Positive for: PERRL Extroacular Muscles: Positive for: EOMI Conjunctiva: Positive for: Normal Mouth: Positive for: Moist Mucous Membranes Neck: Positive for: Normal Range of Motion Respiratory/Chest: Negative for: Respiratory Distress, Accessory Muscle Use, Retracting, Rhonchi, Tachypneic Cardiovascular: Positive for: Regular Rate and Rhythm, Normal S1, S2 Abdomen: Positive for: Normal Bowel Sounds. Negative for: Tenderness, Distention Upper Extremity: Positive for: Normal Inspection. Negative for: Edema Lower Extremity: Positive for: Normal Inspection. Negative for: Edema, CALF TENDERNESS Neurological: Positive for: Speech Normal Skin: Positive for: Other (generalized vitiligo) Psychiatric: Positive for: Alert - Medications Active Medications: Active Medications Generic Name Dose Route Start Last Admin Trade Name Freq PRN Reason Stop Dose Admin Acetaminophen 650 mg 04/17/18 23:56 Tylenol 325mg Tab PO Q4 PRN Pain, Mild (1-3) Albuterol 2 puff 04/17/18 23:56 Ventolin Hfa 90 Mcg/Actuation (8 G) IH Q6 PRN Shortness of Breath Amitriptyline HCl 25 mg 04/23/18 22:00 04/23/18 21:26 Elavil PO 25 mg HS [facility] Administration Docusate Sodium 100 mg 04/18/18 09:00 04/23/18 08:42 Colace PO 100 mg DAILY [facility] Administration Enoxaparin Sodium 40 mg 04/18/18 09:00 04/23/18 08:51 Lovenox SC Not Given DAILY [facility] Protocol Famotidine 20 mg 04/18/18 22:00 04/23/18 21:25 Pepcid PO 20 mg HS [facility] Administration Gabapentin 300 mg 04/18/18 09:00 04/23/18 16:49 Neurontin PO 300 mg TID [facility] Administration Home Med 9 mg 04/18/18 09:00 04/23/18 08:42 Budesonide [Entocort Ec] PO 9 mg DAILY [facility] Administration Meropenem 1 gm/ Sodium 100 mls @ 100 mls/hr 04/18/18 01:00 04/24/18 02:00 Chloride IVPB 100 mls/hr Q8 [facility] Administration Protocol Lactobacillus Acidophilus 1 cap 04/22/18 17:00 04/23/18 16:47 Bacid Acidophilus PO 1 cap BID [facility] Administration Levalbuterol HCl 1.25 mg 04/18/18 00:00 04/24/18 04:01 Xopenex INH 1.25 mg RQ4 [facility] Administration Lidocaine 1 ea 04/22/18 09:00 04/23/18 16:56 Lidoderm TD Not Given DAILY [facility] Lorazepam 0.5 mg 04/22/18 15:56 Ativan IVP Q6 PRN Anxiety Montelukast Sodium 10 mg 04/18/18 22:00 04/23/18 21:21 Singulair PO 10 mg HS [facility] Administration Morphine Sulfate 4 mg 04/21/18 14:45 04/22/18 21:02 Morphine IVP 4 mg Q4 PRN Administration Pain, severe (8-10) Ondansetron HCl 4 mg 04/18/18 09:52 04/18/18 10:10 Zofran Inj IVP 4 mg Q6 PRN Administration Nausea/Vomiting Oxycodone/Acetaminophen 1 tab 04/21/18 20:44 Percocet 5/325 Mg Tab PO 04/24/18 20:45 Q4 PRN Pain, Mild (1-3) Oxycodone/Acetaminophen 2 tab 04/21/18 20:44 04/24/18 06:14 Percocet 5/325 Mg Tab PO 04/24/18 20:45 2 tab Q6 PRN Administration Pain, moderate (4-7) Prednisone 30 mg 04/19/18 09:00 04/23/18 08:45 Prednisone Tab PO 30 mg DAILY [facility] Administration Saccharomyces Boulardii 250 mg 04/19/18 17:00 04/23/18 16:47 Florastor PO 250 mg BID [facility] Administration Fluticasone/Salmeterol 1 puff 04/18/18 09:00 04/23/18 21:11 Advair Diskus 500/50 INH 1 puff Q12 [facility] Administration Zolpidem Tartrate 10 mg 04/22/18 23:16 04/23/18 21:26 Ambien PO 10 mg HS PRN Administration Insomnia - Patient Studies Lab Studies: Microbiology Studies 04/22/18 16:17 Gram Stain - Final Pleural Fluid Body Fluid Culture - Preliminary NO GROWTH AFTER 24 HOURS 04/21/18 09:58 Gram Stain - Final Chest Wound Culture - Preliminary NO GROWTH AFTER 24 HOURS 04/21/18 09:58 Gram Stain - Final Chest Wound Culture - Preliminary NO GROWTH AFTER 24 HOURS Lab Studies 04/24/18 04/24/18 04/23/18 Range/Units 04:20 04:20 18:02 WBC 13.1 H (4.8-10.8) K/uL RBC 4.30 L (4.40-5.90) Mil/uL Hgb 12.4 (12.0-18.0) g/dL Hct 38.2 (35.0-51.0) % MCV 88.7 (80.0-94.0) fl MCH 28.9 (27.0-31.0) pg MCHC 32.6 L (33.0-37.0) g/dL RDW 16.0 H (11.5-14.5) % Plt Count 370 (130-400) K/uL MPV 8.1 (7.2-11.7) fl Neut % (Auto) 65.1 (50.0-75.0) % Lymph % (Auto) 19.6 L (20.0-40.0) % [place] % (Auto) 12.5 H (0.0-10.0) % Eos % (Auto) 2.5 (0.0-4.0) % Baso % (Auto) 0.3 (0.0-2.0) % Neut # (Auto) 8.5 H (1.8-7.0) K/uL Lymph # (Auto) 2.6 (1.0-4.3) K/uL [place] # (Auto) 1.6 H (0.0-0.8) K/uL Eos # (Auto) 0.3 (0.0-0.7) K/uL Baso # (Auto) 0.0 (0.0-0.2) K/uL Sodium 137 (132-148) mmol/l Potassium 4.4 (3.6-5.0) MMOL/L Chloride 102 (98-107) mmol/L Carbon Dioxide 31 H (22-30) mmol/L Anion Gap 8 L (10-20) BUN 34 H (9-20) mg/dl Creatinine 0.9 (0.8-1.5) mg/dl Est GFR ( Amer) > 60 Est GFR (Non-Af Amer) > 60 Random Glucose 89 (75-110) mg/dL Calcium 8.6 (8.4-10.2) mg/dL C. difficile Ag & Toxin Negative (NEGATIVE) Laboratory Results - last 24 hr 04/23/18 04/24/18 04/24/18 18:02 04:20 04:20 WBC 13.1 H RBC 4.30 L Hgb 12.4 Hct 38.2 MCV 88.7 MCH 28.9 MCHC 32.6 L RDW 16.0 H Plt Count 370 MPV 8.1 Neut % (Auto) 65.1 Lymph % (Auto) 19.6 L [place] % (Auto) 12.5 H Eos % (Auto) 2.5 Baso % (Auto) 0.3 Neut # (Auto) 8.5 H Lymph # (Auto) 2.6 [place] # (Auto) 1.6 H Eos # (Auto) 0.3 Baso # (Auto) 0.0 Sodium 137 Potassium 4.4 Chloride 102 Carbon Dioxide 31 H Anion Gap 8 L BUN 34 H Creatinine 0.9 Est GFR ( Amer) > 60 Est GFR (Non-Af Amer) > 60 Random Glucose 89 Calcium 8.6 C. difficile Ag & Toxin Negative Critical Care Progress Note - Nutrition Nutrition: Nutrition Category Date Time Status Regular Diet [DIET] Diets 04/22/18 Breakfast Active Assessment/Plan - Assessment and Plan (Free Text) Assessment: A/P Respiratory insufficiency, Rt pneumothorax s/p lung biopsy, COPD, asthma, gastritis, esinophilic colitis, CHF - Chest tube drainage - Pulmonary toilets - Surgery follow up - Bronchodilators - Continue meds
--- NOTE | 2018-04-24 08:20 | CP.PCM.PN ---
Subjective - Date & Time of Evaluation Date of Evaluation: 04/24/18 Time of Evaluation: 07:50 - Subjective Subjective: CT Surgery Pt seen and examined. no acute events overnight. Awaiting AM CXR. No new complaints. Pain moderately controlled with meds. Objective - Vital Signs/Intake and Output Vital Signs (last 24 hours): Temp Pulse Resp BP Pulse Ox 98.3 F 78 17 110/72 97 04/24/18 04:00 04/24/18 06:00 04/24/18 06:00 04/24/18 06:00 04/24/18 06:00 Intake and Output: 04/24/18 04/24/18 06:59 18:59 Intake Total 450 Output Total 800 Balance -350 - Medications Medications: Current Medications Acetaminophen (Tylenol 325mg Tab) 650 mg PO Q4 PRN PRN Reason: Pain, Mild (1-3) Albuterol (Ventolin Hfa 90 Mcg/Actuation (8 G)) 2 puff IH Q6 PRN PRN Reason: Shortness of Breath Amitriptyline HCl (Elavil) 25 mg PO HS [facility] Last Admin: 04/23/18 21:26 Dose: 25 mg Docusate Sodium (Colace) 100 mg PO DAILY [facility] Last Admin: 04/23/18 08:42 Dose: 100 mg Enoxaparin Sodium (Lovenox) 40 mg SC DAILY [facility] PRN Reason: Protocol Last Admin: 04/23/18 08:51 Dose: Not Given Famotidine (Pepcid) 20 mg PO HS [facility] Last Admin: 04/23/18 21:25 Dose: 20 mg Gabapentin (Neurontin) 300 mg PO TID [facility] Last Admin: 04/23/18 16:49 Dose: 300 mg Home Med (Budesonide [Entocort Ec]) 9 mg PO DAILY [facility] Last Admin: 04/23/18 08:42 Dose: 9 mg Meropenem 1 gm/ Sodium (Chloride) 100 mls @ 100 mls/hr IVPB Q8 [facility] PRN Reason: Protocol Last Admin: 04/24/18 02:00 Dose: 100 mls/hr Lactobacillus Acidophilus (Bacid Acidophilus) 1 cap PO BID [facility] Last Admin: 04/23/18 16:47 Dose: 1 cap Levalbuterol HCl (Xopenex) 1.25 mg INH RQ4 [facility] Last Admin: 04/24/18 04:01 Dose: 1.25 mg Lidocaine (Lidoderm) 1 ea TD DAILY [facility] Last Admin: 04/23/18 16:56 Dose: Not Given Lorazepam (Ativan) 0.5 mg IVP Q6 PRN PRN Reason: Anxiety Montelukast Sodium (Singulair) 10 mg PO HS [facility] Last Admin: 04/23/18 21:21 Dose: 10 mg Morphine Sulfate (Morphine) 4 mg IVP Q4 PRN PRN Reason: Pain, severe (8-10) Last Admin: 04/22/18 21:02 Dose: 4 mg Ondansetron HCl (Zofran Inj) 4 mg IVP Q6 PRN PRN Reason: Nausea/Vomiting Last Admin: 04/18/18 10:10 Dose: 4 mg Oxycodone/Acetaminophen (Percocet 5/325 Mg Tab) 1 tab PO Q4 PRN PRN Reason: Pain, Mild (1-3) Stop: 04/24/18 20:45 Oxycodone/Acetaminophen (Percocet 5/325 Mg Tab) 2 tab PO Q6 PRN PRN Reason: Pain, moderate (4-7) Stop: 04/24/18 20:45 Last Admin: 04/24/18 06:14 Dose: 2 tab Prednisone (Prednisone Tab) 30 mg PO DAILY [facility] Last Admin: 04/23/18 08:45 Dose: 30 mg Saccharomyces Boulardii (Florastor) 250 mg PO BID [facility] Last Admin: 04/23/18 16:47 Dose: 250 mg Fluticasone/Salmeterol (Advair Diskus 500/50) 1 puff INH Q12 [facility] Last Admin: 04/23/18 21:11 Dose: 1 puff Zolpidem Tartrate (Ambien) 10 mg PO HS PRN PRN Reason: Insomnia Last Admin: 04/23/18 21:26 Dose: 10 mg - Labs Labs: 04/24/18 04:20 04/24/18 04:20 PT 11.8 Seconds (9.8-13.1) 04/21/18 05:40 INR 1.1 04/21/18 05:40 APTT 27.9 Seconds (25.6-37.1) 04/21/18 05:40 - Constitutional Appears: Non-toxic, No Acute Distress - Head Exam Head Exam: ATRAUMATIC, NORMOCEPHALIC - Eye Exam Eye Exam: EOMI. absent: Scleral icterus - Respiratory Exam Respiratory Exam: NORMAL BREATHING PATTERN. absent: Respiratory Distress Additional comments: chest tube in place, no drainage, no air leak. on wall suction. Dressing C/D/I - GI/Abdominal Exam GI & Abdominal Exam: Soft. absent: Distended, Tenderness - Extremities Exam Extremities Exam: Normal Capillary Refill. absent: Calf Tenderness, Pedal Edema - Neurological Exam Neurological Exam: Alert, Awake, Oriented x3 - Skin Skin Exam: Dry, Warm Assessment and Plan - Assessment and Plan (Free Text) Assessment: 42 y/o M POD#3 s/p thoracostomy tube placement x2 2/2 residual R pneumothorax, now resolved Plan: - Continue chest tube to suction. - Water seal on Thursday. - Clamp the tube on Thursday. - d/c tube on Thursday.cont pain management - f/u AM CXR - monitor CT output - encourage OOB to chair/IS use - GI/DVT PPx Will D/W Dr. Sanaz Naik PGY4
[2018-04-24] MEDS: Fluticasone-Salmeterol 500-50mcg Diskus INH SCH ×2 (08:31→21:20)
[2018-04-24] MEDS: Saccharomyces Boulardi 250 mg Cap PO SCH ×2 (08:33→17:55)
[2018-04-24] MEDS: BUDESONIDE 9 MG PO SCH (08:34)
[2018-04-24] MEDS: Enoxaparin 40 mg Syringe SC SCH (08:35)
--- NOTE | 2018-04-24 08:44 | CP.PCM.PN ---
Subjective - Date & Time of Evaluation Date of Evaluation: 04/24/18 Time of Evaluation: 08:30 - Subjective Subjective: No acute overnight events. Pt states that his pain is better controlled. Pain worse with cough but breathing has sig improved. Ambulatory, good PO intake and without fever. Chest tube 45ml of sero-sanguineous fluid Objective - Vital Signs/Intake and Output Vital Signs (last 24 hours): Temp Pulse Resp BP Pulse Ox 98.3 F 78 17 110/72 97 04/24/18 04:00 04/24/18 06:00 04/24/18 06:00 04/24/18 06:00 04/24/18 06:00 Intake and Output: 04/24/18 04/24/18 06:59 18:59 Intake Total 450 Output Total 800 Balance -350 - Medications Medications: Current Medications Acetaminophen (Tylenol 325mg Tab) 650 mg PO Q4 PRN PRN Reason: Pain, Mild (1-3) Albuterol (Ventolin Hfa 90 Mcg/Actuation (8 G)) 2 puff IH Q6 PRN PRN Reason: Shortness of Breath Amitriptyline HCl (Elavil) 25 mg PO HS [facility] Last Admin: 04/23/18 21:26 Dose: 25 mg Docusate Sodium (Colace) 100 mg PO DAILY [facility] Last Admin: 04/24/18 08:35 Dose: 100 mg Enoxaparin Sodium (Lovenox) 40 mg SC DAILY [facility] PRN Reason: Protocol Last Admin: 04/24/18 08:35 Dose: 40 mg Famotidine (Pepcid) 20 mg PO HS [facility] Last Admin: 04/23/18 21:25 Dose: 20 mg Gabapentin (Neurontin) 300 mg PO TID [facility] Last Admin: 04/24/18 08:36 Dose: 300 mg Home Med (Budesonide [Entocort Ec]) 9 mg PO DAILY [facility] Last Admin: 04/24/18 08:34 Dose: 9 mg Meropenem 1 gm/ Sodium (Chloride) 100 mls @ 100 mls/hr IVPB Q8 [facility] PRN Reason: Protocol Last Admin: 04/24/18 08:36 Dose: 100 mls/hr Lactobacillus Acidophilus (Bacid Acidophilus) 1 cap PO BID [facility] Last Admin: 04/23/18 16:47 Dose: 1 cap Levalbuterol HCl (Xopenex) 1.25 mg INH RQ4 [facility] Last Admin: 04/24/18 08:20 Dose: 1.25 mg Lidocaine (Lidoderm) 1 ea TD DAILY [facility] Last Admin: 04/23/18 16:56 Dose: Not Given Lorazepam (Ativan) 0.5 mg IVP Q6 PRN PRN Reason: Anxiety Montelukast Sodium (Singulair) 10 mg PO HS [facility] Last Admin: 04/23/18 21:21 Dose: 10 mg Morphine Sulfate (Morphine) 4 mg IVP Q4 PRN PRN Reason: Pain, severe (8-10) Last Admin: 04/22/18 21:02 Dose: 4 mg Ondansetron HCl (Zofran Inj) 4 mg IVP Q6 PRN PRN Reason: Nausea/Vomiting Last Admin: 04/18/18 10:10 Dose: 4 mg Oxycodone/Acetaminophen (Percocet 5/325 Mg Tab) 1 tab PO Q4 PRN PRN Reason: Pain, Mild (1-3) Stop: 04/24/18 20:45 Oxycodone/Acetaminophen (Percocet 5/325 Mg Tab) 2 tab PO Q6 PRN PRN Reason: Pain, moderate (4-7) Stop: 04/24/18 20:45 Last Admin: 04/24/18 06:14 Dose: 2 tab Prednisone (Prednisone Tab) 30 mg PO DAILY [facility] Last Admin: 04/24/18 08:37 Dose: 30 mg Saccharomyces Boulardii (Florastor) 250 mg PO BID [facility] Last Admin: 04/24/18 08:33 Dose: 250 mg Fluticasone/Salmeterol (Advair Diskus 500/50) 1 puff INH Q12 [facility] Last Admin: 04/24/18 08:31 Dose: 1 puff Zolpidem Tartrate (Ambien) 10 mg PO HS PRN PRN Reason: Insomnia Last Admin: 04/23/18 21:26 Dose: 10 mg - Labs Labs: 04/24/18 04:20 04/24/18 04:20 PT 11.8 Seconds (9.8-13.1) 04/21/18 05:40 INR 1.1 04/21/18 05:40 APTT 27.9 Seconds (25.6-37.1) 08/15/18 05:40 - Constitutional Appears: No Acute Distress - Head Exam Head Exam: ATRAUMATIC - Eye Exam Eye Exam: EOMI, Normal appearance - ENT Exam ENT Exam: Mucous Membranes Moist - Respiratory Exam Respiratory Exam: Chest Wall Tenderness (anterior edge of dressing/tape. Minimal subcutanous emphesema today, anterior near the dressing margins ), Clear to Ausculation Bilateral, Wheezes (faint b/l), NORMAL BREATHING PATTERN. absent: Rales, Respiratory Distress Additional comments: Chest tube appreciated in R axialla, tape intact. Tube draining 45cc sero- sanguineous fluid - Cardiovascular Exam Cardiovascular Exam: REGULAR RHYTHM, +S1, +S2 - GI/Abdominal Exam GI & Abdominal Exam: Soft, Normal Bowel Sounds. absent: Tenderness - Extremities Exam Extremities Exam: absent: Calf Tenderness, Pedal Edema - Neurological Exam Neurological Exam: Alert, Awake - Skin Additional comments: vitalligo and tattoos noted throughout Assessment and Plan - Assessment and Plan (Free Text) Assessment: Assessment/plan: 42 YO Male with PMHx of Severe Persistent asthma, COPD, gastritis, pancreatitis , and Eosinophilic colitis is admitted for right sided pneumothorax Right Pneumothorax, -POD 11 R ant chest tube; R post chest tube pulled 04/22 -Thoracic Surgery on Consult; Dr. Yo; water seal Thursday, clamp Thursday and d/c tube Thursday -Pain management: Oxycodone, and Gabapentin 300 TID -CT Chest 04/22: no phenumothorax identified after placement of 2nd chest tube. Interval decrease in subcutaneous emphysema -pleural fluid for cx, LDH, protein, cell count, pending; fluid gram stain neg x 24 hrs -Repeat CXR today per surgery Hospital acquired pneumonia -Improving -ID on board; Dr. Swain, recommendations appreciated -Sputum Cx: Growing Klebsiella, Sensitive to meropenem -04/16/18; blood cx no growth final -continue with Meropenem 1gm Q9 (day 04/16) -C/w Probiotics Lung mass/opacity, RLL -CT (04/08/18) showed multiple areas of patch opacity right lower lobe. Largest 3 cm mass which was selected for lung biopsy. -s/p lung biopsy 04/08/18; lung tissue with marked eosinophilia, lymphoplasmacytic infiltrate with increased IgG4/IgG ratio as well as touton type giant cells. -pulmonary on consult; biopsy finding discussed with Dr. Esposito; rec for pt to see rheumatology. -rheumatology consulted, pending recs -pt may benefit from outpatient allergy/immunology Severe Persistent asthma and COPD -Chronic -continue home medications: Xopenex INH Q4, Fluticasone/salmeterol 1 puff INH BID -Pulmonary consult, Dr. Esposito -C/w Prednisone 30mg PO QD Eosinophilic collitis -chronic, controlled -pain well controlled s/p superior hypogastric plexus block -Patient to follow up with Rheumatology, Dr. Brown as outpatient -Consult GI, Dr. Heart, recommendations appreciated (Spoke with GI: cleared for Prednisone PO daily) -Continue Famotidine 20mg PO QHS, and Budesonide 9mg PO QD -cont Amitriptyline 25mg PO QHS -c. diff neg; d/c isolation Depressed/Labile mood -Denies SI/HI -Consult Psych, follow up recommendations -Psych consulted; outpatient psych History of systolic disfunction with reduced EF -Asymptomatic -Echo 12/15/17: EF 35-40% DVT prophylaxis -SCDs -PT/OT consulted -Lovenox 40 SC daily
[2018-04-24] MEDS: Lactobacillus Acidophilus 500 MU Cap PO SCH ×3 (08:55→17:55)
--- NOTE | 2018-04-24 13:01 | RAD ---
Date of service: 04/24/2018 HISTORY: pneumothroax COMPARISON: No prior. FINDINGS: LUNGS: No active pulmonary disease. PLEURA: Right apical chest tube unchanged in position. No pneumothorax. No pleural effusion. CARDIOVASCULAR: Normal. OSSEOUS STRUCTURES: No significant abnormalities. VISUALIZED UPPER ABDOMEN: Normal. OTHER FINDINGS: None. IMPRESSION: Right apical chest tube unchanged. No right pneumothorax. Otherwise unremarkable.
[2018-04-24] MEDS: Lidocaine 5% Patch TD SCH (14:55)
[2018-04-24] MEDS ORDERED: Oxycodone/Acetaminophen 5/325 mg Tab PO PRN (21:22)
[2018-04-25] MEDS: Meropenem 1 GM in Sodium Chloride 0.9% 100 ML IVPB SCH ×3 (00:42→17:31)
[2018-04-25] MEDS: Levalbuterol 1.25 MG/3 ML Inhal Soln UD INH SCH ×6 (00:56→19:38)
[2018-04-25 05:36] LABS: BASO % 0.2 % (0.0-2.0); EOS # 0.4 K/uL (0.0-0.7); EOS % 3.4 % (0.0-4.0); HEMOGLOBIN 11.4 g/dL (12.0-18.0); LYMPH # 2.4 K/uL (1.0-4.3); LYMPH % 19.4 % (20.0-40.0); MEAN CELL VOLUME 89.1 fl (80.0-94.0); MEAN CORPUSCULAR HEMOGLOBIN 28.8 pg (27.0-31.0); MEAN CORPUSCULAR HGB CONC 32.4 g/dL (33.0-37.0); MEAN PLATELET VOLUME 8.4 fl (7.2-11.7); MONO # 1.5 K/uL (0.0-0.8); MONO % 12.2 % (0.0-10.0); NEUT # 7.9 K/uL (1.8-7.0); NEUT % 64.8 % (50.0-75.0); RBC 3.97 Mil/uL (4.40-5.90); RED CELL DISTRIBUTION WIDTH 16.8 % (11.5-14.5); WHITE BLOOD COUNT 12.2 K/uL (4.8-10.8)
[2018-04-25] MEDS: Oxycodone/Acetaminophen 5/325 mg Tab PO PRN ×4 (05:38→20:48)
[2018-04-25 05:58] LABS: ALB/GLOB RATIO 0.9 (1.0-2.1); ALBUMIN 2.9 g/dL (3.5-5.0); ALT/SGPT 58 U/L (21-72); AST/SGOT 24 U/L (17-59); BLOOD UREA NITROGEN 27 mg/dl (9-20); CALCIUM 8.4 mg/dL (8.4-10.2); GFR AFRICAN-AMERICAN > 60; GFR NON-AFRICAN AMERICAN > 60
--- NOTE | 2018-04-25 07:20 | CP.CCUPN ---
CCU Subjective - Physician Review Events Since Last Encounter (Free Text): Patient awake, no distress, no fever, no pressors, events reviewed CCU Objective - Vital Signs / Intake & Output Vital Signs (Last 4 hours): Vital Signs Temp Pulse Resp BP Pulse Ox 04/25/18 05:32 89 19 99/66 L 95 04/25/18 04:00 98 F 86 18 86/51 L 96 Intake and Output (Last 8hrs): Intake & Output 04/24/18 04/25/18 04/25/18 22:59 06:59 14:59 Intake Total 222 100 Output Total 900 1450 Balance -678 -1350 Intake: IV 2 Intake, Piggyback 100 100 Oral 120 Output: Chest Tube Drainage 0 Right Anterior Chest 0 Urine 900 1450 Urine, Voided 900 1450 Other: # Bowel Movements 1 - Physical Exam Head: Positive for: Atraumatic Pupils: Positive for: PERRL Extroacular Muscles: Positive for: EOMI Conjunctiva: Positive for: Normal Mouth: Positive for: Moist Mucous Membranes Neck: Positive for: Normal Range of Motion Respiratory/Chest: Negative for: Respiratory Distress, Accessory Muscle Use, Retracting, Rhonchi, Tachypneic Cardiovascular: Positive for: Regular Rate and Rhythm, Normal S1, S2 Abdomen: Positive for: Normal Bowel Sounds. Negative for: Tenderness, Distention Upper Extremity: Positive for: Normal Inspection. Negative for: Edema Lower Extremity: Positive for: Normal Inspection. Negative for: Edema, CALF TENDERNESS Neurological: Positive for: Speech Normal Skin: Positive for: Other (generalized vitiligo) Psychiatric: Positive for: Alert - Medications Active Medications: Active Medications Generic Name Dose Route Start Last Admin Trade Name Freq PRN Reason Stop Dose Admin Acetaminophen 650 mg 04/17/18 23:56 Tylenol 325mg Tab PO Q4 PRN Pain, Mild (1-3) Albuterol 2 puff 04/17/18 23:56 Ventolin Hfa 90 Mcg/Actuation (8 G) IH Q6 PRN Shortness of Breath Amitriptyline HCl 25 mg 04/23/18 22:00 04/24/18 21:22 Elavil PO Not Given HS [facility] Docusate Sodium 100 mg 04/18/18 09:00 04/24/18 08:35 Colace PO 100 mg DAILY [facility] Administration Enoxaparin Sodium 40 mg 04/18/18 09:00 04/24/18 08:35 Lovenox SC 40 mg DAILY [facility] Administration Protocol Famotidine 20 mg 04/18/18 22:00 04/24/18 21:22 Pepcid PO 20 mg HS [facility] Administration Gabapentin 300 mg 04/18/18 09:00 04/24/18 17:56 Neurontin PO 300 mg TID [facility] Administration Home Med 9 mg 04/18/18 09:00 04/24/18 08:34 Budesonide [Entocort Ec] PO 9 mg DAILY [facility] Administration Meropenem 1 gm/ Sodium 100 mls @ 100 mls/hr 04/18/18 01:00 04/25/18 00:42 Chloride IVPB 100 mls/hr Q8 [facility] Administration Protocol Lactobacillus Acidophilus 1 cap 04/22/18 17:00 04/24/18 17:55 Bacid Acidophilus PO 1 cap BID [facility] Administration Levalbuterol HCl 1.25 mg 04/18/18 00:00 04/25/18 04:54 Xopenex INH Not Given RQ4 [facility] Lidocaine 1 ea 04/22/18 09:00 04/24/18 14:55 Lidoderm TD Not Given DAILY [facility] Lorazepam 0.5 mg 04/22/18 15:56 Ativan IVP Q6 PRN Anxiety Montelukast Sodium 10 mg 04/18/18 22:00 04/24/18 21:21 Singulair PO 10 mg HS [facility] Administration Ondansetron HCl 4 mg 04/18/18 09:52 04/18/18 10:10 Zofran Inj IVP 4 mg Q6 PRN Administration Nausea/Vomiting Oxycodone/Acetaminophen 2 tab 04/24/18 21:21 04/25/18 05:38 Percocet 5/325 Mg Tab PO 04/27/18 21:22 2 tab Q4 PRN Administration Pain, severe (8-10) Oxycodone/Acetaminophen 1 tab 04/24/18 21:22 Percocet 5/325 Mg Tab PO 04/27/18 21:23 Q4 PRN Pain, moderate (4-7) Prednisone 30 mg 04/19/18 09:00 04/24/18 08:37 Prednisone Tab PO 30 mg DAILY [facility] Administration Saccharomyces Boulardii 250 mg 04/19/18 17:00 04/24/18 17:55 Florastor PO 250 mg BID [facility] Administration Fluticasone/Salmeterol 1 puff 04/18/18 09:00 04/24/18 21:20 Advair Diskus 500/50 INH 1 puff Q12 [facility] Administration Zolpidem Tartrate 10 mg 04/22/18 23:16 04/24/18 23:01 Ambien PO 10 mg HS PRN Administration Insomnia - Patient Studies Lab Studies: Microbiology Studies 04/22/18 16:17 Gram Stain - Final Pleural Fluid Body Fluid Culture - Preliminary NO GROWTH AFTER 2 DAYS 04/21/18 09:58 Gram Stain - Final Chest Wound Culture - Preliminary No growth. 04/21/18 09:58 Gram Stain - Final Chest Wound Culture - Preliminary No growth. Lab Studies 04/25/18 04/25/18 Range/Units 04:09 04:09 WBC 12.2 H (4.8-10.8) K/uL RBC 3.97 L (4.40-5.90) Mil/uL Hgb 11.4 L (12.0-18.0) g/dL Hct 35.3 (35.0-51.0) % MCV 89.1 (80.0-94.0) fl MCH 28.8 (27.0-31.0) pg MCHC 32.4 L (33.0-37.0) g/dL RDW 16.8 H (11.5-14.5) % Plt Count 347 (130-400) K/uL MPV 8.4 (7.2-11.7) fl Neut % (Auto) 64.8 (50.0-75.0) % Lymph % (Auto) 19.4 L (20.0-40.0) % [place] % (Auto) 12.2 H (0.0-10.0) % Eos % (Auto) 3.4 (0.0-4.0) % Baso % (Auto) 0.2 (0.0-2.0) % Neut # (Auto) 7.9 H (1.8-7.0) K/uL Lymph # (Auto) 2.4 (1.0-4.3) K/uL [place] # (Auto) 1.5 H (0.0-0.8) K/uL Eos # (Auto) 0.4 (0.0-0.7) K/uL Baso # (Auto) 0.0 (0.0-0.2) K/uL Sodium 137 (132-148) mmol/l Potassium 4.1 (3.6-5.0) MMOL/L Chloride 103 (98-107) mmol/L Carbon Dioxide 30 (22-30) mmol/L Anion Gap 8 L (10-20) BUN 27 H (9-20) mg/dl Creatinine 0.9 (0.8-1.5) mg/dl Est GFR ( Amer) > 60 Est GFR (Non-Af Amer) > 60 Random Glucose 86 (75-110) mg/dL Calcium 8.4 (8.4-10.2) mg/dL Total Bilirubin 0.4 (0.2-1.3) mg/dl AST 24 (17-59) U/L ALT 58 (21-72) U/L Alkaline Phosphatase 102 (38-126) U/L Total Protein 5.9 L (6.3-8.2) G/DL Albumin 2.9 L (3.5-5.0) g/dL Globulin 3.1 (2.2-3.9) gm/dL Albumin/Globulin Ratio 0.9 L (1.0-2.1) Laboratory Results - last 24 hr 04/25/18 04/25/18 04:09 04:09 WBC 12.2 H RBC 3.97 L Hgb 11.4 L Hct 35.3 MCV 89.1 MCH 28.8 MCHC 32.4 L RDW 16.8 H Plt Count 347 MPV 8.4 Neut % (Auto) 64.8 Lymph % (Auto) 19.4 L [place] % (Auto) 12.2 H Eos % (Auto) 3.4 Baso % (Auto) 0.2 Neut # (Auto) 7.9 H Lymph # (Auto) 2.4 [place] # (Auto) 1.5 H Eos # (Auto) 0.4 Baso # (Auto) 0.0 Sodium 137 Potassium 4.1 Chloride 103 Carbon Dioxide 30 Anion Gap 8 L BUN 27 H Creatinine 0.9 Est GFR ( Amer) > 60 Est GFR (Non-Af Amer) > 60 Random Glucose 86 Calcium 8.4 Total Bilirubin 0.4 AST 24 ALT 58 Alkaline Phosphatase 102 Total Protein 5.9 L Albumin 2.9 L Globulin 3.1 Albumin/Globulin Ratio 0.9 L Critical Care Progress Note - Nutrition Nutrition: Nutrition Category Date Time Status Regular Diet [DIET] Diets 04/22/18 Breakfast Active Assessment/Plan - Assessment and Plan (Free Text) Assessment: A/P Respiratory insufficiency, Rt pneumothorax s/p lung biopsy, COPD, asthma, gastritis, esinophilic colitis, CHF - Chest tube drainage - Pulmonary toilets - Surgery follow up - Bronchodilators - Continue meds
[2018-04-25] MEDS: BUDESONIDE 9 MG PO SCH (08:21)
[2018-04-25] MEDS: Saccharomyces Boulardi 250 mg Cap PO SCH ×2 (08:22→17:31)
[2018-04-25] MEDS: Enoxaparin 40 mg Syringe SC SCH (08:23)
[2018-04-25] MEDS: Fluticasone-Salmeterol 500-50mcg Diskus INH SCH ×2 (08:24→20:49)
[2018-04-25] MEDS: Lactobacillus Acidophilus 500 MU Cap PO SCH ×2 (08:26→17:31)
[2018-04-25] MEDS: Lidocaine 5% Patch TD SCH (08:28)
--- NOTE | 2018-04-25 08:29 | CP.PCM.PN ---
Subjective - Date & Time of Evaluation Date of Evaluation: 04/25/18 Time of Evaluation: 08:27 - Subjective Subjective: Thoracic Surgery - Dr. Yo Pt S&E. MAGDA. Pt has mild pain at chest tube site, otherwise no complaints. Chest tube placed to waterseal. Objective - Vital Signs/Intake and Output Vital Signs (last 24 hours): Temp Pulse Resp BP Pulse Ox 98.4 F 91 H 24 104/67 96 04/25/18 08:00 04/25/18 08:00 04/25/18 08:00 04/25/18 08:00 04/25/18 08:00 Intake and Output: 04/25/18 04/25/18 06:59 18:59 Intake Total 102 Output Total 1950 Balance -1848 - Medications Medications: Current Medications Acetaminophen (Tylenol 325mg Tab) 650 mg PO Q4 PRN PRN Reason: Pain, Mild (1-3) Albuterol (Ventolin Hfa 90 Mcg/Actuation (8 G)) 2 puff IH Q6 PRN PRN Reason: Shortness of Breath Amitriptyline HCl (Elavil) 25 mg PO HS [facility] Last Admin: 04/24/18 21:22 Dose: Not Given Docusate Sodium (Colace) 100 mg PO DAILY [facility] Last Admin: 04/25/18 08:23 Dose: 100 mg Enoxaparin Sodium (Lovenox) 40 mg SC DAILY [facility] PRN Reason: Protocol Last Admin: 04/25/18 08:23 Dose: 40 mg Famotidine (Pepcid) 20 mg PO HS [facility] Last Admin: 04/24/18 21:22 Dose: 20 mg Gabapentin (Neurontin) 300 mg PO TID [facility] Last Admin: 04/25/18 08:22 Dose: 300 mg Home Med (Budesonide [Entocort Ec]) 9 mg PO DAILY [facility] Last Admin: 04/25/18 08:21 Dose: 9 mg Meropenem 1 gm/ Sodium (Chloride) 100 mls @ 100 mls/hr IVPB Q8 [facility] PRN Reason: Protocol Last Admin: 04/25/18 08:23 Dose: 100 mls/hr Lactobacillus Acidophilus (Bacid Acidophilus) 1 cap PO BID [facility] Last Admin: 04/25/18 08:26 Dose: 1 cap Levalbuterol HCl (Xopenex) 1.25 mg INH RQ4 [facility] Last Admin: 04/25/18 08:03 Dose: 1.25 mg Lidocaine (Lidoderm) 1 ea TD DAILY [facility] Last Admin: 04/24/18 14:55 Dose: Not Given Lorazepam (Ativan) 0.5 mg IVP Q6 PRN PRN Reason: Anxiety Montelukast Sodium (Singulair) 10 mg PO HS [facility] Last Admin: 04/24/18 21:21 Dose: 10 mg Ondansetron HCl (Zofran Inj) 4 mg IVP Q6 PRN PRN Reason: Nausea/Vomiting Last Admin: 04/18/18 10:10 Dose: 4 mg Oxycodone/Acetaminophen (Percocet 5/325 Mg Tab) 2 tab PO Q4 PRN PRN Reason: Pain, severe (8-10) Stop: 04/27/18 21:22 Last Admin: 04/25/18 05:38 Dose: 2 tab Oxycodone/Acetaminophen (Percocet 5/325 Mg Tab) 1 tab PO Q4 PRN PRN Reason: Pain, moderate (4-7) Stop: 04/27/18 21:23 Prednisone (Prednisone Tab) 30 mg PO DAILY [facility] Last Admin: 04/25/18 08:21 Dose: 30 mg Saccharomyces Boulardii (Florastor) 250 mg PO BID [facility] Last Admin: 04/25/18 08:22 Dose: 250 mg Fluticasone/Salmeterol (Advair Diskus 500/50) 1 puff INH Q12 [facility] Last Admin: 04/25/18 08:24 Dose: 1 puff Zolpidem Tartrate (Ambien) 10 mg PO HS PRN PRN Reason: Insomnia Last Admin: 04/24/18 23:01 Dose: 10 mg - Labs Labs: 04/25/18 04:09 04/25/18 04:09 PT 11.8 Seconds (9.8-13.1) 04/21/18 05:40 INR 1.1 04/21/18 05:40 APTT 27.9 Seconds (25.6-37.1) 04/21/18 05:40 - Constitutional Appears: No Acute Distress - Respiratory Exam Respiratory Exam: NORMAL BREATHING PATTERN. absent: Respiratory Distress Additional comments: chest tube to waterseal, no airleak - Neurological Exam Neurological Exam: Alert, Oriented x3 - Skin Skin Exam: Dry, Intact Assessment and Plan - Assessment and Plan (Free Text) Assessment: 42 y/o M POD#4 s/p thoracostomy tube placement x2 2/2 residual R pneumothorax, now resolved Plan: - Chest tube to waterseal - F/U AM CXR - Will Clamp tube on Thursday - Possible D/C tube on Thursday - Encourage OOB to chair/IS use D/W Dr. Yo
--- NOTE | 2018-04-25 12:00 | RAD ---
Date of service: 04/25/2018 HISTORY: pneumothroax COMPARISON: No prior. FINDINGS: LUNGS: No active pulmonary disease. PLEURA: Right apical chest tube unchanged. No pneumothorax. No pleural effusion. CARDIOVASCULAR: Normal. OSSEOUS STRUCTURES: No significant abnormalities. VISUALIZED UPPER ABDOMEN: Normal. OTHER FINDINGS: None. IMPRESSION: No change in position of right apical chest tube. No pneumothorax.
--- NOTE | 2018-04-25 13:51 | CP.PCM.PN ---
Subjective - Date & Time of Evaluation Date of Evaluation: 04/25/18 Time of Evaluation: 12:00 - Subjective Subjective: Patient seen and examined with attending. Resting comfortably, in bed, L Chest tube to water seal, no output overnight. He is not coughing and has been compliant with his incentive spirometry. Pt feeling that his anxiety has improved control since starting the amitryptiline. Could benefit from dose increase. Will need to follow up outpatient with Dr. Brown for management of lung disease. Chest tube to be clamped tomorrow, possibly d/c day after. Objective - Vital Signs/Intake and Output Vital Signs (last 24 hours): Temp Pulse Resp BP Pulse Ox 97.9 F 91 H 19 98/66 L 94 L 04/25/18 12:00 04/25/18 12:00 04/25/18 12:00 04/25/18 12:00 04/25/18 12:00 Intake and Output: 04/25/18 04/25/18 06:59 18:59 Intake Total 102 220 Output Total 1950 350 Balance -1848 -130 - Medications Medications: Current Medications Acetaminophen (Tylenol 325mg Tab) 650 mg PO Q4 PRN PRN Reason: Pain, Mild (1-3) Albuterol (Ventolin Hfa 90 Mcg/Actuation (8 G)) 2 puff IH Q6 PRN PRN Reason: Shortness of Breath Amitriptyline HCl (Elavil) 50 mg PO HS [facility] Amitriptyline HCl (Elavil) 25 mg PO HS [facility] Stop: 04/25/18 22:01 Docusate Sodium (Colace) 100 mg PO DAILY [facility] Last Admin: 04/25/18 08:23 Dose: 100 mg Enoxaparin Sodium (Lovenox) 40 mg SC DAILY [facility] PRN Reason: Protocol Last Admin: 04/25/18 08:23 Dose: 40 mg Famotidine (Pepcid) 20 mg PO HS [facility] Last Admin: 04/24/18 21:22 Dose: 20 mg Gabapentin (Neurontin) 300 mg PO TID [facility] Last Admin: 04/25/18 13:01 Dose: 300 mg Home Med (Budesonide [Entocort Ec]) 9 mg PO DAILY [facility] Last Admin: 04/25/18 08:21 Dose: 9 mg Meropenem 1 gm/ Sodium (Chloride) 100 mls @ 100 mls/hr IVPB Q8 [facility] PRN Reason: Protocol Last Admin: 04/25/18 08:23 Dose: 100 mls/hr Lactobacillus Acidophilus (Bacid Acidophilus) 1 cap PO BID [facility] Last Admin: 04/25/18 08:26 Dose: 1 cap Levalbuterol HCl (Xopenex) 1.25 mg INH RQ4 [facility] Last Admin: 04/25/18 08:03 Dose: 1.25 mg Lidocaine (Lidoderm) 1 ea TD DAILY [facility] Last Admin: 04/25/18 08:28 Dose: 1 ea Lorazepam (Ativan) 0.5 mg IVP Q6 PRN PRN Reason: Anxiety Montelukast Sodium (Singulair) 10 mg PO HS [facility] Last Admin: 04/24/18 21:21 Dose: 10 mg Ondansetron HCl (Zofran Inj) 4 mg IVP Q6 PRN PRN Reason: Nausea/Vomiting Last Admin: 04/18/18 10:10 Dose: 4 mg Oxycodone/Acetaminophen (Percocet 5/325 Mg Tab) 2 tab PO Q4 PRN PRN Reason: Pain, severe (8-10) Stop: 04/27/18 21:22 Last Admin: 04/25/18 09:41 Dose: 2 tab Oxycodone/Acetaminophen (Percocet 5/325 Mg Tab) 1 tab PO Q4 PRN PRN Reason: Pain, moderate (4-7) Stop: 04/27/18 21:23 Pantoprazole Sodium (Protonix Ec Tab) 40 mg PO DAILY [facility] Prednisone (Prednisone Tab) 30 mg PO DAILY [facility] Last Admin: 04/25/18 08:21 Dose: 30 mg Saccharomyces Boulardii (Florastor) 250 mg PO BID [facility] Last Admin: 04/25/18 08:22 Dose: 250 mg Fluticasone/Salmeterol (Advair Diskus 500/50) 1 puff INH Q12 [facility] Last Admin: 04/25/18 08:24 Dose: 1 puff Zolpidem Tartrate (Ambien) 10 mg PO HS PRN PRN Reason: Insomnia Last Admin: 04/24/18 23:01 Dose: 10 mg - Labs Labs: 04/25/18 04:09 04/25/18 04:09 PT 11.8 Seconds (9.8-13.1) 04/21/18 05:40 INR 1.1 04/21/18 05:40 APTT 27.9 Seconds (25.6-37.1) 04/21/18 05:40 - Constitutional Appears: Cachectic - Head Exam Head Exam: ATRAUMATIC, NORMAL INSPECTION, NORMOCEPHALIC - Eye Exam Eye Exam: EOMI, Normal appearance, PERRL - Respiratory Exam Respiratory Exam: Clear to Ausculation Bilateral (left lung - minimal scattered wheeze), NORMAL BREATHING PATTERN. absent: Respiratory Distress Additional comments: right chest tube in place, dressing clean and dry Assessment and Plan - Assessment and Plan (Free Text) Assessment: 42 YO Male with PMHx of Severe Persistent asthma, COPD, gastritis, pancreatitis , and Eosinophilic colitis is admitted for right sided pneumothorax. Anxiety improving, will increase Elavil, start elavil 50mg po qhs. Right Pneumothorax, -POD 12 R ant chest tube; R post chest tube d/c 04/22 -Thoracic Surgery following, Dr. Yo; water sea today clamp Thursday and d/c tube Thursday -Pain management: Oxycodone, and Gabapentin 300 TID -CT Chest 04/22: no phenumothorax identified after placement of 2nd chest tube. Interval decrease in subcutaneous emphysema -pleural fluid for cx, LDH, protein, cell count, pending; fluid gram stain neg x 24 hrs -CXR from 04/25/18 reviewed Hospital acquired pneumonia -Improving -ID on board; Dr. Swain, recommendations appreciated -Sputum Cx: Growing Klebsiella, Sensitive to meropenem -04/16/18; blood cx no growth final -continue with Meropenem 1gm q8 (day 9) -C/w Probiotics Lung mass/opacity, RLL -CT (04/08/18) showed multiple areas of patch opacity right lower lobe. Largest 3 cm mass which was selected for lung biopsy. -s/p lung biopsy 04/08/18; lung tissue with marked eosinophilia, lymphoplasmacytic infiltrate with increased IgG4/IgG ratio as well as touton type giant cells. -pulmonary on consult; biopsy finding discussed with Dr. Esposito; rec for pt to see rheumatology -f/u rheumatology outpatient; may benefit from outpatient allergy/immunology Severe Persistent asthma and COPD -Chronic -continue home medications: Xopenex INH Q4, Fluticasone/salmeterol 1 puff INH BID -Pulmonary consult, Dr. Esposito -C/w Prednisone 30mg PO QD Eosinophilic collitis -chronic, controlled -pain well controlled s/p superior hypogastric plexus block -Patient to follow up with Rheumatology, Dr. Brown as outpatient -Consult GI, Dr. Heart, recommendations appreciated (Spoke with GI: cleared for Prednisone PO daily) -Continue Famotidine 20mg PO QHS, and Budesonide 9mg PO QD -c. diff neg Depressed/Labile mood -Denies SI/HI -Consult Psych, follow up recommendations -Psych consulted; outpatient psych History of systolic disfunction with reduced EF -Asymptomatic -Echo 12/15/17: EF 35-40% DVT prophylaxis -SCDs -PT/OT consulted -Lovenox 40 SC daily
[2018-04-25] MEDS: Pantoprazole 40 mg EC Tab PO SCH (15:48)
[2018-04-26] MEDS: Meropenem 1 GM in Sodium Chloride 0.9% 100 ML IVPB SCH ×3 (00:16→16:48)
[2018-04-26] MEDS: Levalbuterol 1.25 MG/3 ML Inhal Soln UD INH SCH ×7 (00:45→23:59)
[2018-04-26 05:40] LABS: BASO % 0.4 % (0.0-2.0); EOS # 0.6 K/uL (0.0-0.7); EOS % 4.7 % (0.0-4.0); HEMOGLOBIN 11.3 g/dL (12.0-18.0); LYMPH # 2.6 K/uL (1.0-4.3); LYMPH % 21.7 % (20.0-40.0); MEAN CELL VOLUME 88.9 fl (80.0-94.0); MEAN CORPUSCULAR HEMOGLOBIN 28.8 pg (27.0-31.0); MEAN CORPUSCULAR HGB CONC 32.4 g/dL (33.0-37.0); MEAN PLATELET VOLUME 8.2 fl (7.2-11.7); MONO # 1.3 K/uL (0.0-0.8); MONO % 10.6 % (0.0-10.0); NEUT # 7.6 K/uL (1.8-7.0); NEUT % 62.6 % (50.0-75.0); RBC 3.92 Mil/uL (4.40-5.90); RED CELL DISTRIBUTION WIDTH 16.8 % (11.5-14.5); WHITE BLOOD COUNT 12.1 K/uL (4.8-10.8)
[2018-04-26 06:16] LABS: ALB/GLOB RATIO 1.1 (1.0-2.1); ALT/SGPT 53 U/L (21-72); AST/SGOT 18 U/L (17-59); BLOOD UREA NITROGEN 26 mg/dl (9-20); CALCIUM 8.5 mg/dL (8.4-10.2); GFR AFRICAN-AMERICAN > 60; GFR NON-AFRICAN AMERICAN > 60
--- NOTE | 2018-04-26 07:45 | OP ---
Copied To: Malik Yo MD Attending MD: Malik Yo MD PROCEDURE DATE: 04/21/18 PREOPERATIVE DIAGNOSES: 1. Right pneumothorax. 2. Persistent air leak. 3. Massive subcutaneous emphysema. 4. Churg Cristopher syndrome. POSTOPERATIVE DIAGNOSES: 1. Right pneumothorax. 2. Persistent air leak. 3. Massive subcutaneous emphysema. 4. Churg Cristopher syndrome. OPERATIONS PERFORMED: 1. Insertion of right anterior chest tube. 2. Insertion of right posterior chest tube. 3. Evacuation of effusion. 4. Removal of previously placed chest tube. SURGEON: Malik Yo MD EXCELSIOR CUTTER: Kim Shin DO ANESTHESIA: Endotracheal general anesthesia. ANESTHESIOLOGIST: Delmar Lamar MD DESCRIPTION OF PROCEDURE: The patient was taken to the operating room where he was placed in supine position and under satisfactory endotracheal general anesthesia, the operative field was prepared and draped in a sterile fashion. Surgery was started out by removing previously placed chest tube, which was carefully inspected for possible any defects and found to be satisfactory. Tip of the chest tube was cut and was sent out for C and S. In fourth intercostal space and posterior to the pectoralis major muscle, approximately 1-cm transverse incision was made and was deepened to the pleural cavity. Pleural cavity was carefully explored for any adhesions. After satisfactory confirmation, a #28-Iranian chest tube was placed and was directed to the apex under fluoro guidance. After satisfactory confirmation of the position of tube, chest tube was secured to the skin edge with 0 silk suture. Chest tube was subsequently connected to the [place] drainage system in the usual manner. Posterior chest tube was inserted through the skin incision about approximately one inch long in the fifth intercostal space in posterior axillary line and after entering the pleural cavity bluntly using index finger dissection which was aided by blunt Mikayla clamp, 28-Iranian chest tube was advanced through the apex and was directed posteriorly. Chest tube was guided under fluoroscopy. After satisfactory confirmation of the tip at the apex, chest tube was secured at skin edge with 0-silk suture. Chest tube was subsequently connected to the [place] draining system in the usual manner. Previous thoracostomy incision was next closed in laayers, deeper fascia with interrupted 2-0 Vicryl, and skin with skin david. Thoracostomy incisions were also closed with skin david after closing fascia with interrupted 20 Vicryl.. Sterile dressings were applied and taped in the usual manner. The patient tolerated the procedure very well and was transferred to the recovery room, extubated, and awake with good vital signs. Estimated blood loss was minimum. Sponge, needle, and instruments counts were correct. Malik Yo MD ALISA
--- NOTE | 2018-04-26 08:00 | CP.PCM.PN ---
Subjective - Date & Time of Evaluation Date of Evaluation: 04/26/18 Time of Evaluation: 07:59 - Subjective Subjective: CT surgery progress note for Dr. Michell Snow, PGY-2 Pt S & E at bedside at 0730 Pt with mild pain at CT site, well controlled. Sleeping ok. CT clamped this AM. Objective - Vital Signs/Intake and Output Vital Signs (last 24 hours): Temp Pulse Resp BP Pulse Ox 98.2 F 78 17 104/72 98 04/26/18 00:00 04/26/18 06:42 04/26/18 06:42 04/26/18 06:42 04/26/18 06:42 Intake and Output: 04/26/18 04/26/18 06:59 18:59 Intake Total 100 Output Total 3450 Balance -3350 - Medications Medications: Current Medications Acetaminophen (Tylenol 325mg Tab) 650 mg PO Q4 PRN PRN Reason: Pain, Mild (1-3) Albuterol (Ventolin Hfa 90 Mcg/Actuation (8 G)) 2 puff IH Q6 PRN PRN Reason: Shortness of Breath Amitriptyline HCl (Elavil) 50 mg PO HS [facility] Docusate Sodium (Colace) 100 mg PO DAILY [facility] Last Admin: 04/25/18 08:23 Dose: 100 mg Enoxaparin Sodium (Lovenox) 40 mg SC DAILY [facility] PRN Reason: Protocol Last Admin: 04/25/18 08:23 Dose: 40 mg Famotidine (Pepcid) 20 mg PO HS [facility] Last Admin: 04/25/18 20:59 Dose: 20 mg Gabapentin (Neurontin) 300 mg PO TID [facility] Last Admin: 04/25/18 17:31 Dose: 300 mg Home Med (Budesonide [Entocort Ec]) 9 mg PO DAILY [facility] Last Admin: 04/25/18 08:21 Dose: 9 mg Meropenem 1 gm/ Sodium (Chloride) 100 mls @ 100 mls/hr IVPB Q8 [facility] PRN Reason: Protocol Last Admin: 04/26/18 00:16 Dose: 100 mls/hr Lactobacillus Acidophilus (Bacid Acidophilus) 1 cap PO BID [facility] Last Admin: 04/25/18 17:31 Dose: 1 cap Levalbuterol HCl (Xopenex) 1.25 mg INH RQ4 [facility] Last Admin: 04/26/18 07:37 Dose: Not Given Lidocaine (Lidoderm) 1 ea TD DAILY [facility] Last Admin: 04/25/18 08:28 Dose: 1 ea Lorazepam (Ativan) 0.5 mg IVP Q6 PRN PRN Reason: Anxiety Montelukast Sodium (Singulair) 10 mg PO HS [facility] Last Admin: 04/25/18 21:01 Dose: 10 mg Ondansetron HCl (Zofran Inj) 4 mg IVP Q6 PRN PRN Reason: Nausea/Vomiting Last Admin: 04/18/18 10:10 Dose: 4 mg Oxycodone/Acetaminophen (Percocet 5/325 Mg Tab) 2 tab PO Q4 PRN PRN Reason: Pain, severe (8-10) Stop: 04/27/18 21:22 Last Admin: 04/25/18 20:48 Dose: 2 tab Oxycodone/Acetaminophen (Percocet 5/325 Mg Tab) 1 tab PO Q4 PRN PRN Reason: Pain, moderate (4-7) Stop: 04/27/18 21:23 Pantoprazole Sodium (Protonix Ec Tab) 40 mg PO DAILY [facility] Last Admin: 04/25/18 15:48 Dose: 40 mg Prednisone (Prednisone Tab) 30 mg PO DAILY [facility] Last Admin: 04/25/18 08:21 Dose: 30 mg Saccharomyces Boulardii (Florastor) 250 mg PO BID [facility] Last Admin: 04/25/18 17:31 Dose: 250 mg Fluticasone/Salmeterol (Advair Diskus 500/50) 1 puff INH Q12 [facility] Last Admin: 04/25/18 20:49 Dose: 1 puff Zolpidem Tartrate (Ambien) 10 mg PO HS PRN PRN Reason: Insomnia Last Admin: 04/25/18 23:02 Dose: 10 mg - Labs Labs: 04/26/18 04:30 04/26/18 04:30 PT 11.8 Seconds (9.8-13.1) 04/21/18 05:40 INR 1.1 04/21/18 05:40 APTT 27.9 Seconds (25.6-37.1) 04/21/18 05:40 - Constitutional Appears: Non-toxic, No Acute Distress - Head Exam Head Exam: ATRAUMATIC, NORMAL INSPECTION, NORMOCEPHALIC - Eye Exam Eye Exam: EOMI, Normal appearance - ENT Exam ENT Exam: Mucous Membranes Moist, Normal Exam - Neck Exam Neck Exam: Full ROM, Normal Inspection - Respiratory Exam Respiratory Exam: NORMAL BREATHING PATTERN - Cardiovascular Exam Cardiovascular Exam: REGULAR RHYTHM, +S1, +S2 - GI/Abdominal Exam GI & Abdominal Exam: Soft. absent: Distended - Extremities Exam Extremities Exam: Normal Inspection - Neurological Exam Neurological Exam: Alert, Awake, CN II-XII Intact, Oriented x3 - Psychiatric Exam Psychiatric exam: Normal Affect, Normal Mood - Skin Skin Exam: Dry, Intact, Warm. absent: Normal Color (vitiligo) Additional comments: Dressing to right chest wall-clean/dry/intact Assessment and Plan - Assessment and Plan (Free Text) Assessment: 42M POD#5 s/p thoracostomy tube placement x2 2/2 residual R pneumothorax- resolved Plan: CT to clamp FU AM CXR Pain control OOBTC Activity as tolerated Ambulate Plan for removal tomorrow Will EARNEST attending Gwendolyn, PGY-2
--- NOTE | 2018-04-26 08:23 | CP.PCM.PN ---
Subjective - Date & Time of Evaluation Date of Evaluation: 04/26/18 Time of Evaluation: 07:45 - Subjective Subjective: No acute overnight events. Chest tube to water seal yesterday and clamped today. Pt endorsing mild chest pain, but well controlled with pain meds. Denies chest pain, dyspnea, palpitations, normal BM. Remains afebrile. Objective - Vital Signs/Intake and Output Vital Signs (last 24 hours): Temp Pulse Resp BP Pulse Ox 98.2 F 78 17 104/72 98 04/26/18 00:00 04/26/18 06:42 04/26/18 06:42 04/26/18 06:42 04/26/18 06:42 Intake and Output: 04/26/18 04/26/18 06:59 18:59 Intake Total 100 Output Total 3450 Balance -3350 - Medications Medications: Current Medications Acetaminophen (Tylenol 325mg Tab) 650 mg PO Q4 PRN PRN Reason: Pain, Mild (1-3) Albuterol (Ventolin Hfa 90 Mcg/Actuation (8 G)) 2 puff IH Q6 PRN PRN Reason: Shortness of Breath Amitriptyline HCl (Elavil) 50 mg PO HS [facility] Docusate Sodium (Colace) 100 mg PO DAILY [facility] Last Admin: 04/25/18 08:23 Dose: 100 mg Enoxaparin Sodium (Lovenox) 40 mg SC DAILY [facility] PRN Reason: Protocol Last Admin: 04/25/18 08:23 Dose: 40 mg Famotidine (Pepcid) 20 mg PO HS [facility] Last Admin: 04/25/18 20:59 Dose: 20 mg Gabapentin (Neurontin) 300 mg PO TID [facility] Last Admin: 04/25/18 17:31 Dose: 300 mg Home Med (Budesonide [Entocort Ec]) 9 mg PO DAILY [facility] Last Admin: 04/25/18 08:21 Dose: 9 mg Meropenem 1 gm/ Sodium (Chloride) 100 mls @ 100 mls/hr IVPB Q8 [facility] PRN Reason: Protocol Last Admin: 04/26/18 00:16 Dose: 100 mls/hr Lactobacillus Acidophilus (Bacid Acidophilus) 1 cap PO BID [facility] Last Admin: 04/25/18 17:31 Dose: 1 cap Levalbuterol HCl (Xopenex) 1.25 mg INH RQ4 [facility] Last Admin: 04/26/18 07:37 Dose: Not Given Lidocaine (Lidoderm) 1 ea TD DAILY [facility] Last Admin: 04/25/18 08:28 Dose: 1 ea Lorazepam (Ativan) 0.5 mg IVP Q6 PRN PRN Reason: Anxiety Montelukast Sodium (Singulair) 10 mg PO HS [facility] Last Admin: 04/25/18 21:01 Dose: 10 mg Ondansetron HCl (Zofran Inj) 4 mg IVP Q6 PRN PRN Reason: Nausea/Vomiting Last Admin: 04/18/18 10:10 Dose: 4 mg Oxycodone/Acetaminophen (Percocet 5/325 Mg Tab) 2 tab PO Q4 PRN PRN Reason: Pain, severe (8-10) Stop: 04/27/18 21:22 Last Admin: 04/25/18 20:48 Dose: 2 tab Oxycodone/Acetaminophen (Percocet 5/325 Mg Tab) 1 tab PO Q4 PRN PRN Reason: Pain, moderate (4-7) Stop: 04/27/18 21:23 Pantoprazole Sodium (Protonix Ec Tab) 40 mg PO DAILY [facility] Last Admin: 04/25/18 15:48 Dose: 40 mg Prednisone (Prednisone Tab) 30 mg PO DAILY [facility] Last Admin: 04/25/18 08:21 Dose: 30 mg Saccharomyces Boulardii (Florastor) 250 mg PO BID [facility] Last Admin: 04/25/18 17:31 Dose: 250 mg Fluticasone/Salmeterol (Advair Diskus 500/50) 1 puff INH Q12 [facility] Last Admin: 04/25/18 20:49 Dose: 1 puff Zolpidem Tartrate (Ambien) 10 mg PO HS PRN PRN Reason: Insomnia Last Admin: 04/25/18 23:02 Dose: 10 mg - Labs Labs: 04/26/18 04:30 04/26/18 04:30 PT 11.8 Seconds (9.8-13.1) 04/21/18 05:40 INR 1.1 04/21/18 05:40 APTT 27.9 Seconds (25.6-37.1) 04/21/18 05:40 - Constitutional Appears: No Acute Distress - Head Exam Head Exam: ATRAUMATIC - Eye Exam Eye Exam: EOMI, Normal appearance - ENT Exam ENT Exam: Mucous Membranes Moist - Respiratory Exam Respiratory Exam: Chest Wall Tenderness (R axilla ), Clear to Ausculation Bilateral. absent: Wheezes Additional comments: Chest tube in R axilla, dressing intact Unable to appreciated subcutanous emphesema - Cardiovascular Exam Cardiovascular Exam: REGULAR RHYTHM, +S1, +S2 - GI/Abdominal Exam GI & Abdominal Exam: Soft, Normal Bowel Sounds. absent: Tenderness - Extremities Exam Extremities Exam: Normal Inspection. absent: Calf Tenderness, Pedal Edema - Neurological Exam Neurological Exam: Alert, Awake - Psychiatric Exam Psychiatric exam: Normal Mood - Skin Additional comments: Vitaligo throughout Assessment and Plan - Assessment and Plan (Free Text) Assessment: Assessment/plan: 42 YO Male with PMHx of Severe Persistent asthma, COPD, gastritis, pancreatitis , and Eosinophilic colitis is admitted for right sided pneumothorax Right Pneumothorax, -resolved -POD 13 R ant chest tube; R post chest tube pulled 04/22 -Thoracic Surgery on Consult; Dr. Yo; water seal Thursday, clamp Thursday and d/c tube Thursday -Pain management: Oxycodone, and Gabapentin 300 TID -CT Chest 04/22: no phenumothorax identified after placement of 2nd chest tube. Interval decrease in subcutaneous emphysema -CXR 04/25: no pneumothorax -pleural fluid for cx, LDH, protein, cell count, pending; fluid gram stain neg x 24 hrs -Repeat CXR daily per surgery Hospital acquired pneumonia -Improving -ID on board; Dr. Swain, recommendations appreciated -Sputum Cx: Growing Klebsiella, Sensitive to meropenem -04/16/18; blood cx no growth final -continue with Meropenem 1gm Q9 (day 06/16) -C/w Probiotics Depressed/Labile mood, Anxiety -Denies SI/HI -Amitriptyline increased to 50mg PO QHS -Psych consulted; recs outpatient psych Lung mass/opacity, RLL -CT (04/08/18) showed multiple areas of patch opacity right lower lobe. Largest 3 cm mass which was selected for lung biopsy. -s/p lung biopsy 04/08/18; lung tissue with marked eosinophilia, lymphoplasmacytic infiltrate with increased IgG4/IgG ratio as well as touton type giant cells. -pulmonary on consult; biopsy finding discussed with Dr. Esposito; rec for pt to see rheumatology. -rheumatology consulted, pending recs -pt may benefit from outpatient allergy/immunology Severe Persistent asthma and COPD -Chronic -continue home medications: Xopenex INH Q4, Fluticasone/salmeterol 1 puff INH BID -Pulmonary consult, Dr. Esposito -C/w Prednisone 30mg PO QD Eosinophilic collitis -chronic, controlled -pain well controlled s/p superior hypogastric plexus block -Patient to follow up with Rheumatology, Dr. Brown as outpatient -Consult GI, Dr. Heart, recommendations appreciated (Spoke with GI: cleared for Prednisone PO daily) -Continue Famotidine 20mg PO QHS, and Budesonide 9mg PO QD -Amitriptyline increased to 50mg PO QHS -c. diff neg; d/c isolation History of systolic disfunction with reduced EF -Asymptomatic -Echo 12/15/17: EF 35-40% DVT prophylaxis -SCDs -PT/OT consulted -Lovenox 40 SC daily
[2018-04-26] MEDS: Enoxaparin 40 mg Syringe SC SCH (08:30)
[2018-04-26] MEDS: Lidocaine 5% Patch TD SCH (08:30)
[2018-04-26] MEDS: Fluticasone-Salmeterol 500-50mcg Diskus INH SCH ×2 (09:02→21:11)
[2018-04-26] MEDS: Lactobacillus Acidophilus 500 MU Cap PO SCH ×2 (09:03→16:49)
[2018-04-26] MEDS: BUDESONIDE 9 MG PO SCH (09:03)
[2018-04-26] MEDS: Saccharomyces Boulardi 250 mg Cap PO SCH ×2 (09:04→16:48)
[2018-04-26] MEDS: Pantoprazole 40 mg EC Tab PO SCH (09:05)
[2018-04-26] MEDS: Oxycodone/Acetaminophen 5/325 mg Tab PO PRN ×3 (09:20→19:38)
--- NOTE | 2018-04-26 11:19 | RAD ---
Date of service: 04/26/2018 HISTORY: pneumothroax COMPARISON: Portable chest 04/25/2018. FINDINGS: LUNGS: No infiltrate bilaterally. Right apical chest tube unchanged in position. No definitive pneumothorax appreciable bilaterally or pleural effusion. PLEURA: No significant pleural effusion identified, no pneumothorax apparent. CARDIOVASCULAR: Normal. OSSEOUS STRUCTURES: No significant abnormalities. VISUALIZED UPPER ABDOMEN: Normal. OTHER FINDINGS: None. IMPRESSION: Stable right chest tube placement. No pneumothorax bilaterally or pleural effusions. No infiltrates bilaterally.
--- NOTE | 2018-04-26 12:26 | CP.PCM.PN ---
Subjective - Date & Time of Evaluation Date of Evaluation: 04/26/18 Time of Evaluation: 12:26 - Subjective Subjective: ID Note- Patient seen and examined today in ICU. patient in good spirits today. denies any fever or chills, denies any sob and he is happy bc tomm his remaining CT is supposed to be d/c. He is also happy because he is having good formed bowel movement and he is eating well. Objective - Vital Signs/Intake and Output Vital Signs (last 24 hours): Temp Pulse Resp BP Pulse Ox 98.0 F 88 16 93/60 L 97 04/26/18 12:00 04/26/18 12:00 04/26/18 12:00 04/26/18 12:00 04/26/18 12:00 Intake and Output: 04/26/18 04/26/18 06:59 18:59 Intake Total 100 500 Output Total 3450 400 Balance -3350 100 - Medications Medications: Current Medications Acetaminophen (Tylenol 325mg Tab) 650 mg PO Q4 PRN PRN Reason: Pain, Mild (1-3) Albuterol (Ventolin Hfa 90 Mcg/Actuation (8 G)) 2 puff IH Q6 PRN PRN Reason: Shortness of Breath Amitriptyline HCl (Elavil) 50 mg PO HS [facility] Docusate Sodium (Colace) 100 mg PO DAILY [facility] Last Admin: 04/26/18 09:04 Dose: 100 mg Enoxaparin Sodium (Lovenox) 40 mg SC DAILY [facility] PRN Reason: Protocol Last Admin: 04/25/18 08:23 Dose: 40 mg Famotidine (Pepcid) 20 mg PO HS [facility] Last Admin: 04/25/18 20:59 Dose: 20 mg Gabapentin (Neurontin) 300 mg PO TID [facility] Last Admin: 04/26/18 09:05 Dose: 300 mg Home Med (Budesonide [Entocort Ec]) 9 mg PO DAILY [facility] Last Admin: 04/26/18 09:03 Dose: 9 mg Meropenem 1 gm/ Sodium (Chloride) 100 mls @ 100 mls/hr IVPB Q8 [facility] PRN Reason: Protocol Last Admin: 04/26/18 09:05 Dose: 100 mls/hr Lactobacillus Acidophilus (Bacid Acidophilus) 1 cap PO BID [facility] Last Admin: 04/26/18 09:03 Dose: 1 cap Levalbuterol HCl (Xopenex) 1.25 mg INH RQ4 [facility] Last Admin: 04/26/18 11:28 Dose: Not Given Lidocaine (Lidoderm) 1 ea TD DAILY [facility] Last Admin: 04/25/18 08:28 Dose: 1 ea Lorazepam (Ativan) 0.5 mg IVP Q6 PRN PRN Reason: Anxiety Montelukast Sodium (Singulair) 10 mg PO HS [facility] Last Admin: 04/25/18 21:01 Dose: 10 mg Ondansetron HCl (Zofran Inj) 4 mg IVP Q6 PRN PRN Reason: Nausea/Vomiting Last Admin: 04/18/18 10:10 Dose: 4 mg Oxycodone/Acetaminophen (Percocet 5/325 Mg Tab) 2 tab PO Q4 PRN PRN Reason: Pain, severe (8-10) Stop: 04/27/18 21:22 Last Admin: 04/26/18 09:20 Dose: 2 tab Oxycodone/Acetaminophen (Percocet 5/325 Mg Tab) 1 tab PO Q4 PRN PRN Reason: Pain, moderate (4-7) Stop: 04/27/18 21:23 Pantoprazole Sodium (Protonix Ec Tab) 40 mg PO DAILY [facility] Last Admin: 04/26/18 09:05 Dose: 40 mg Prednisone (Prednisone Tab) 30 mg PO DAILY [facility] Last Admin: 04/26/18 09:05 Dose: 30 mg Saccharomyces Boulardii (Florastor) 250 mg PO BID [facility] Last Admin: 04/26/18 09:04 Dose: 250 mg Fluticasone/Salmeterol (Advair Diskus 500/50) 1 puff INH Q12 [facility] Last Admin: 04/26/18 09:02 Dose: 1 puff Zolpidem Tartrate (Ambien) 10 mg PO HS PRN PRN Reason: Insomnia Last Admin: 04/25/18 23:02 Dose: 10 mg - Labs Labs: - Additional Findings Additional findings: - Constitutional Appears: Non-toxic, No Acute Distress - Head Exam Head Exam: ATRAUMATIC - Eye Exam Eye Exam: EOMI, PERRL - ENT Exam ENT Exam: Normal Oropharynx - Neck Exam Neck exam: Positive for: Full Rom - Respiratory Exam Respiratory Exam: NORMAL BREATHING PATTERN Additional comments: has 1 right chest tube in place No wheezing aeration heard b/l less on the right base - Cardiovascular Exam Cardiovascular Exam: RRR, +S1, +S2 - GI/Abdominal Exam GI & Abdominal Exam: Normal Bowel Sounds, Soft Additional comments: NT, ND - Extremities Exam Additional comments: no edema B/l Le - Neurological Exam Neurological exam: Alert, Oriented x 3 Laboratory Results - last 72 hr 04/22/18 04/22/18 04/23/18 16:17 16:17 18:02 WBC RBC Hgb Hct MCV MCH MCHC RDW Plt Count MPV Neut % (Auto) Lymph % (Auto) Mclennan % (Auto) Eos % (Auto) Baso % (Auto) Neut # (Auto) Lymph # (Auto) Mclennan # (Auto) Eos # (Auto) Baso # (Auto) Sodium Potassium Chloride Carbon Dioxide Anion Gap BUN Creatinine Est GFR ( Amer) Est GFR (Non-Af Amer) Random Glucose Calcium Total Bilirubin AST ALT Alkaline Phosphatase Total Protein Albumin Globulin Albumin/Globulin Ratio Fluid Source Cancelled Fluid Appearance Cancelled Fluid WBC Cancelled Fluid RBC Cancelled Fluid Tot Cell Count Cancelled Fluid Neutrophils Cancelled Fluid Lymphocytes Cancelled Fld Monocyte/Macrophag Cancelled Fluid Total Protein 3.7 Fluid LDH 9813 Fluid Comment Cancelled C. difficile Ag & Toxin Negative 04/24/18 04/24/18 04/25/18 04:20 04:20 04:09 WBC 13.1 H 12.2 H RBC 4.30 L 3.97 L Hgb 12.4 11.4 L Hct 38.2 35.3 MCV 88.7 89.1 MCH 28.9 28.8 MCHC 32.6 L 32.4 L RDW 16.0 H 16.8 H Plt Count 370 347 MPV 8.1 8.4 Neut % (Auto) 65.1 64.8 Lymph % (Auto) 19.6 L 19.4 L Mclennan % (Auto) 12.5 H 12.2 H Eos % (Auto) 2.5 3.4 Baso % (Auto) 0.3 0.2 Neut # (Auto) 8.5 H 7.9 H Lymph # (Auto) 2.6 2.4 Mclennan # (Auto) 1.6 H 1.5 H Eos # (Auto) 0.3 0.4 Baso # (Auto) 0.0 0.0 Sodium 137 Potassium 4.4 Chloride 102 Carbon Dioxide 31 H Anion Gap 8 L BUN 34 H Creatinine 0.9 Est GFR ( Amer) > 60 Est GFR (Non-Af Amer) > 60 Random Glucose 89 Calcium 8.6 Total Bilirubin AST ALT Alkaline Phosphatase Total Protein Albumin Globulin Albumin/Globulin Ratio Fluid Source Fluid Appearance Fluid WBC Fluid RBC Fluid Tot Cell Count Fluid Neutrophils Fluid Lymphocytes Fld Monocyte/Macrophag Fluid Total Protein Fluid LDH Fluid Comment C. difficile Ag & Toxin 04/25/18 04/26/18 04/26/18 04:09 04:30 04:30 WBC 12.1 H RBC 3.92 L Hgb 11.3 L Hct 34.9 L MCV 88.9 MCH 28.8 MCHC 32.4 L RDW 16.8 H Plt Count 322 MPV 8.2 Neut % (Auto) 62.6 Lymph % (Auto) 21.7 Mclennan % (Auto) 10.6 H Eos % (Auto) 4.7 H Baso % (Auto) 0.4 Neut # (Auto) 7.6 H Lymph # (Auto) 2.6 Mclennan # (Auto) 1.3 H Eos # (Auto) 0.6 Baso # (Auto) 0.0 Sodium 137 136 Potassium 4.1 4.1 Chloride 103 101 Carbon Dioxide 30 29 Anion Gap 8 L 10 BUN 27 H 26 H Creatinine 0.9 1.0 Est GFR ( Amer) > 60 > 60 Est GFR (Non-Af Amer) > 60 > 60 Random Glucose 86 85 Calcium 8.4 8.5 Total Bilirubin 0.4 0.4 AST 24 18 ALT 58 53 Alkaline Phosphatase 102 95 Total Protein 5.9 L 5.7 L Albumin 2.9 L 3.0 L Globulin 3.1 2.8 Albumin/Globulin Ratio 0.9 L 1.1 Fluid Source Fluid Appearance Fluid WBC Fluid RBC Fluid Tot Cell Count Fluid Neutrophils Fluid Lymphocytes Fld Monocyte/Macrophag Fluid Total Protein Fluid LDH Fluid Comment C. difficile Ag & Toxin Microbiology 04/22/18 16:17 Pleural Fluid Gram Stain - Final 04/22/18 16:17 Pleural Fluid Body Fluid Culture - Final No growth. 04/21/18 09:58 Chest Gram Stain - Final 04/21/18 09:58 Chest Wound Culture - Final No growth. 04/21/18 09:58 Chest Gram Stain - Final 04/21/18 09:58 Chest Wound Culture - Final No growth. 04/21/18 19:05 Naris MRSA Culture (Admit) - Final MRSA NOT DETECTED 04/16/18 20:10 Blood-Venous Blood Culture - Final NO GROWTH AFTER 5 DAYS 04/16/18 20:10 Blood-Venous Gram Stain - Final TEST NOT PERFORMED 04/15/18 18:55 Blood Blood Culture - Final NO GROWTH AFTER 5 DAYS 04/15/18 18:55 Blood Gram Stain - Final TEST NOT PERFORMED 04/15/18 18:45 Blood Blood Culture - Final NO GROWTH AFTER 5 DAYS 04/15/18 18:45 Blood Gram Stain - Final TEST NOT PERFORMED 04/18/18 18:19 Naris MRSA Culture (Admit) - Final MRSA NOT DETECTED 04/15/18 19:45 Urine,Clean Catch Urine Culture - Final No Growth (<1,000 CFU/ML) 04/15/18 19:45 Sputum Gram Stain - Final 04/15/18 19:45 Sputum Sputum Culture - Final Klebsiella Pneumoniae Ssp Pneu 04/14/18 10:45 Nose MRSA Culture (Admit) - Final MRSA NOT DETECTED Accession No. : [id number] Patient Name / ID : ANTHONY FERNANDEZ / [id number] Exam Date : 04/26/2018 09:38:24 ( Approved ) Study Comment : Sex / Age : M / 42Y Creator : Wilfred Arteaga MD Dictator : Wilfred Arteaga MD Paint Trimmer Pipe Bowls : Chuck Wagon Driver : Wilfred Arteaga MD Approver2 : Report Date : 04/26/2018 11:12:28 My Comment : Date of service: 04/26/2018 HISTORY: pneumothroax COMPARISON: Portable chest 04/25/2018. FINDINGS: LUNGS: No infiltrate bilaterally. Right apical chest tube unchanged in position. No definitive pneumothorax appreciable bilaterally or pleural effusion. PLEURA: No significant pleural effusion identified, no pneumothorax apparent. CARDIOVASCULAR: Normal. OSSEOUS STRUCTURES: No significant abnormalities. VISUALIZED UPPER ABDOMEN: Normal. OTHER FINDINGS: None. IMPRESSION: Stable right chest tube placement. No pneumothorax bilaterally or pleural effusions. No infiltrates bilaterally. Assessment and Plan (1) Pneumothorax Status: Acute (2) COPD (chronic obstructive pulmonary disease) Status: Acute (3) Eosinophilic colitis Status: Acute - Assessment and Plan (Free Text) Assessment: A/P- 42 year old male with extensive medical history including multiple bouts of abdominal pian, pancreatitis, colitis, gastritis, pulmonary nodules, copd has had extensive work up done and was diagnosed with eosinophilic colitis via colonoscopy . recent lung biopsy for further eval of the pulm nodules and developed PTX s/p CT . s/p one chest tube removal, now has 1 CT remaining afebrile Leukocytosis trending down. NO left shift sputum cx- Klebsiella pneumonia ( pansensitive) UA- neg blood cx- neg x 2 urine cx- neg pleural fluid cx- neg lung biopsy 04/08/18 path report- lung tissue with marked eosinophilia, lymphoplasmacytic infiltrate with increased IgG4/IgG ratio as well as touton type giant cells. PLan- today is day #10 of meropenem for klebsiela pneumonia. cxr report no infiltrates and no PTX. advise to d/c meropenem today. advise rhumatologic evaluation based on above lung biopsy report. CT management as per Ct surgery and ICU team. all labs and imaging reviewed. Pt. verbalizes full understanding of all above and agrees with above plan of care. d/w Dr.Pierre Salas. ICU time 30 min.
--- NOTE | 2018-04-26 12:44 | CP.PCM.PN ---
Subjective - Date & Time of Evaluation Date of Evaluation: 04/26/18 Time of Evaluation: 12:41 - Subjective Subjective: Pt s/e. vss [id number] cxr-No pneumotorax. Subcutaneous emphysema present. a/p: Chest tube clamped. Consider d/c tube tomorrow. Objective - Vital Signs/Intake and Output Vital Signs (last 24 hours): Temp Pulse Resp BP Pulse Ox 98.0 F 88 16 93/60 L 97 04/26/18 12:00 04/26/18 12:00 04/26/18 12:00 04/26/18 12:00 04/26/18 12:00 Intake and Output: 04/26/18 04/26/18 06:59 18:59 Intake Total 100 500 Output Total 3450 400 Balance -3350 100 - Medications Medications: Current Medications Acetaminophen (Tylenol 325mg Tab) 650 mg PO Q4 PRN PRN Reason: Pain, Mild (1-3) Albuterol (Ventolin Hfa 90 Mcg/Actuation (8 G)) 2 puff IH Q6 PRN PRN Reason: Shortness of Breath Amitriptyline HCl (Elavil) 50 mg PO HS [facility] Docusate Sodium (Colace) 100 mg PO DAILY [facility] Last Admin: 04/26/18 09:04 Dose: 100 mg Enoxaparin Sodium (Lovenox) 40 mg SC DAILY [facility] PRN Reason: Protocol Last Admin: 04/25/18 08:23 Dose: 40 mg Famotidine (Pepcid) 20 mg PO HS [facility] Last Admin: 04/25/18 20:59 Dose: 20 mg Gabapentin (Neurontin) 300 mg PO TID [facility] Last Admin: 04/26/18 09:05 Dose: 300 mg Home Med (Budesonide [Entocort Ec]) 9 mg PO DAILY [facility] Last Admin: 04/26/18 09:03 Dose: 9 mg Meropenem 1 gm/ Sodium (Chloride) 100 mls @ 100 mls/hr IVPB Q8 [facility] PRN Reason: Protocol Last Admin: 04/26/18 09:05 Dose: 100 mls/hr Lactobacillus Acidophilus (Bacid Acidophilus) 1 cap PO BID [facility] Last Admin: 04/26/18 09:03 Dose: 1 cap Levalbuterol HCl (Xopenex) 1.25 mg INH RQ4 [facility] Last Admin: 04/26/18 11:28 Dose: Not Given Lidocaine (Lidoderm) 1 ea TD DAILY [facility] Last Admin: 04/25/18 08:28 Dose: 1 ea Lorazepam (Ativan) 0.5 mg IVP Q6 PRN PRN Reason: Anxiety Montelukast Sodium (Singulair) 10 mg PO HS [facility] Last Admin: 04/25/18 21:01 Dose: 10 mg Ondansetron HCl (Zofran Inj) 4 mg IVP Q6 PRN PRN Reason: Nausea/Vomiting Last Admin: 04/18/18 10:10 Dose: 4 mg Oxycodone/Acetaminophen (Percocet 5/325 Mg Tab) 2 tab PO Q4 PRN PRN Reason: Pain, severe (8-10) Stop: 04/27/18 21:22 Last Admin: 04/26/18 09:20 Dose: 2 tab Oxycodone/Acetaminophen (Percocet 5/325 Mg Tab) 1 tab PO Q4 PRN PRN Reason: Pain, moderate (4-7) Stop: 04/27/18 21:23 Pantoprazole Sodium (Protonix Ec Tab) 40 mg PO DAILY [facility] Last Admin: 04/26/18 09:05 Dose: 40 mg Prednisone (Prednisone Tab) 30 mg PO DAILY [facility] Last Admin: 04/26/18 09:05 Dose: 30 mg Saccharomyces Boulardii (Florastor) 250 mg PO BID [facility] Last Admin: 04/26/18 09:04 Dose: 250 mg Fluticasone/Salmeterol (Advair Diskus 500/50) 1 puff INH Q12 [facility] Last Admin: 04/26/18 09:02 Dose: 1 puff Zolpidem Tartrate (Ambien) 10 mg PO HS PRN PRN Reason: Insomnia Last Admin: 04/25/18 23:02 Dose: 10 mg - Labs Labs: 04/26/18 04:30 04/26/18 04:30 PT 11.8 Seconds (9.8-13.1) 04/21/18 05:40 INR 1.1 04/21/18 05:40 APTT 27.9 Seconds (25.6-37.1) 04/21/18 05:40
[2018-04-26 13:22] LABS: TOTAL PROTEIN,BODY FLUID 3.7 g/dL (NONE ESTABLISHED)
--- NOTE | 2018-04-26 14:11 | PN ---
Copied To: Santos Bruno MD Attending MD: Santos Bruno MD CRITICAL CARE PROGRESS NOTE DATE: 04/26/2018 LOCATION: The patient in ICU, bed 421. TIME SPENT: 25 minutes. SUBJECTIVE: The patient is seen and evaluated at the bedside. Past medical, surgical, social, and family history reviewed as noted in history and physical. 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 One chest tube was removed on 04/22. The chest tube on the right side is still in, no air leak noted. The tube is clamped by Thoracic Surgery this morning. Overnight, uneventful, normotensive, afebrile, less anxious, and less short of breath. PHYSICAL EXAMINATION: VITAL SIGNS: Temperature 98.2, heart rate 78 regular, blood pressure of 104/72, oxygen saturation 98% on room air, intake 1152, output , positive balance of 2148. Right posterior chest with minimal drainage. HEAD, EYES, EARS, NOSE, AND THROAT: Pupils reactive. Conjunctivae pink. Sclerae white. NECK: Supple. Trachea central. CHEST: Bilateral breath sounds. Mild wheezing, prolonged expiration. HEART: Rhythm regular. S1 and S2 normal intensity. ABDOMEN: Bowel sounds present, soft. EXTREMITIES: No clubbing or cyanosis. SKIN: With diffuse vitiligo. CURRENT MEDICATIONS: Include Tylenol 650 every four hours p.r.n. for pain, albuterol inhalation two puffs every 6 hours p.r.n., Elavil 50 mg p.o. at bedtime, Colace 100 mg daily, Lovenox 40 subcu daily, Pepcid 20 daily, Neurontin 300 mg three times daily, Lactobacillus one capsule twice daily, Xopenex 1.25 mg via nebulizer every four hours, Lidoderm one patch daily, Ativan 0.5 mg IV every six hours p.r.n., meropenem 1 g IV every eight hours, Percocet two tabs every four hours p.r.n., Protonix 40 daily, prednisone 30 mg daily, Florastor 250 mg twice daily, Advair one puff every 12 hours, Ambien 10 mg p.o. at bedtime p.r.n. LABORATORY DATA: WBC 12.1, hemoglobin 11.3, hematocrit 34.9, platelet count 322, neutrophils 62.6, lymphocytes 21.6, and monocytes 10.6. SMA-7; sodium 136, potassium 4.1, chloride 101, CO2 of 29, blood urea nitrogen 26, creatinine 1, random glucose 85, calcium 8.5, total bilirubin 0.4, AST 18, ALT 53, alkaline phosphate 95. Total protein 5.7, albumin 3, albumin globulin ratio 1.1. Stool for C. diff negative. Microbiology, sputum culture positive for Klebsiella pneumonia. Urine culture, no growth. Repeat blood culture report on 04/16, no growth. MRSA nasal smear negative. Wound culture, no growth. Body fluid, no growth after two days. Chest x-ray done on 04/25, right apical chest tube, unchanged. No pneumothorax. No pleural effusion. No active pulmonary disease. Repeat x-ray from this morning pending. IMPRESSION: 1. Neurologic: Alert, awake, anxious, less compared to before, on Elavil, Neurontin, and on Percocet p.r.n. 2. Pulmonary: Status post pneumothorax. Repeat chest x-ray shows expansion of the right lung, the remaining tube in place clamped. Followup chest x-ray, history of asthma and chronic obstructive pulmonary disease, on Xopenex, Advair and Pulmicort. Possible rheumatologic lung disease, on prednisone. Follow up with slug press operator as outpatient. 3. Cardiovascular: Hemodynamically stable, history of systolic heart failure with ejection fraction of 35 to 40%. 4. Renal: No acute issues. Urine output within normal limits. 5. Endocrinology: No acute issues. 6. Gastrointestinal: Tolerating regular diet. History of eosinophilic colitis, suspected related to , being followed by slug press operator as outpatient. 7. Infectious disease: Sputum culture positive for Klebsiella pneumonia, followed by Infectious Disease. Currently on meropenem. Remains afebrile. Continue head of bed 30-degree up. Deep vein thrombosis prophylaxis with Lovenox and sequential compression device. Gastrointestinal prophylaxis, on Pepcid. May sit out of bed to chair. Santos Bruno MD [facility] # [id number]
[2018-04-27] MEDS: Levalbuterol 1.25 MG/3 ML Inhal Soln UD INH SCH ×5 (04:35→19:09)
[2018-04-27 05:35] LABS: BASO % 0.4 % (0.0-2.0); EOS # 0.5 K/uL (0.0-0.7); EOS % 3.8 % (0.0-4.0); HEMOGLOBIN 11.6 g/dL (12.0-18.0); LYMPH # 2.4 K/uL (1.0-4.3); MEAN CORPUSCULAR HEMOGLOBIN 29.1 pg (27.0-31.0); MEAN CORPUSCULAR HGB CONC 32.7 g/dL (33.0-37.0); MEAN PLATELET VOLUME 8.2 fl (7.2-11.7); MONO % 7.9 % (0.0-10.0); NEUT # 9.3 K/uL (1.8-7.0); NEUT % 69.9 % (50.0-75.0); RBC 3.98 Mil/uL (4.40-5.90); RED CELL DISTRIBUTION WIDTH 16.5 % (11.5-14.5); WHITE BLOOD COUNT 13.3 K/uL (4.8-10.8)
[2018-04-27 05:51] LABS: ALBUMIN 3.1 g/dL (3.5-5.0); ALT/SGPT 48 U/L (21-72); AST/SGOT 20 U/L (17-59); BLOOD UREA NITROGEN 28 mg/dl (9-20); CALCIUM 8.4 mg/dL (8.4-10.2); GFR AFRICAN-AMERICAN > 60; GFR NON-AFRICAN AMERICAN > 60
[2018-04-27] MEDS: Oxycodone/Acetaminophen 5/325 mg Tab PO PRN ×3 (06:24→21:07)
--- NOTE | 2018-04-27 08:48 | RAD ---
Date of service: 04/27/2018 HISTORY: pneumothorax COMPARISON: Portable chest 04/26/2018. FINDINGS: LUNGS: No active pulmonary disease. Right chest tube unchanged in position. PLEURA: No significant pleural effusion identified, no pneumothorax apparent. CARDIOVASCULAR: Normal. OSSEOUS STRUCTURES: No significant abnormalities. VISUALIZED UPPER ABDOMEN: Normal. OTHER FINDINGS: None. IMPRESSION: Stable right chest tube. No pneumothorax or other active cardiopulmonary disease appreciable in the interval.
--- NOTE | 2018-04-27 09:00 | CP.PCM.PN ---
Subjective - Date & Time of Evaluation Date of Evaluation: 04/27/18 Time of Evaluation: 07:45 - Subjective Subjective: Thoracic Surgery Dr. Yo Pt S&E @bedside. SISIEO. pt has no complaints. pain well controlled. denies F/C, N /V, CP, SOB. tolerating diet. Objective - Vital Signs/Intake and Output Vital Signs (last 24 hours): Temp Pulse Resp BP Pulse Ox 97.8 F 93 H 20 108/69 99 04/27/18 08:00 04/27/18 08:00 04/27/18 08:00 04/27/18 08:00 04/27/18 08:00 Intake and Output: 04/27/18 04/27/18 06:59 18:59 Output Total 1550 Balance -1550 - Medications Medications: Current Medications Acetaminophen (Tylenol 325mg Tab) 650 mg PO Q4 PRN PRN Reason: Pain, Mild (1-3) Albuterol (Ventolin Hfa 90 Mcg/Actuation (8 G)) 2 puff IH Q6 PRN PRN Reason: Shortness of Breath Amitriptyline HCl (Elavil) 50 mg PO HS [facility] Last Admin: 04/26/18 21:11 Dose: 50 mg Docusate Sodium (Colace) 100 mg PO DAILY [facility] Last Admin: 04/26/18 09:04 Dose: 100 mg Enoxaparin Sodium (Lovenox) 40 mg SC DAILY [facility] PRN Reason: Protocol Last Admin: 04/26/18 08:30 Dose: Not Given Famotidine (Pepcid) 20 mg PO HS [facility] Last Admin: 04/26/18 21:12 Dose: 20 mg Gabapentin (Neurontin) 300 mg PO TID [facility] Last Admin: 04/26/18 16:48 Dose: 300 mg Home Med (Budesonide [Entocort Ec]) 9 mg PO DAILY [facility] Last Admin: 04/26/18 09:03 Dose: 9 mg Lactobacillus Acidophilus (Bacid Acidophilus) 1 cap PO BID [facility] Last Admin: 04/26/18 16:49 Dose: 1 cap Levalbuterol HCl (Xopenex) 1.25 mg INH RQ4 [facility] Last Admin: 04/27/18 07:24 Dose: Not Given Lidocaine (Lidoderm) 1 ea TD DAILY [facility] Last Admin: 04/26/18 08:30 Dose: Not Given Lorazepam (Ativan) 0.5 mg IVP Q6 PRN PRN Reason: Anxiety Last Admin: 04/26/18 15:46 Dose: 0.5 mg Montelukast Sodium (Singulair) 10 mg PO HS [facility] Last Admin: 04/26/18 21:11 Dose: 10 mg Ondansetron HCl (Zofran Inj) 4 mg IVP Q6 PRN PRN Reason: Nausea/Vomiting Last Admin: 04/18/18 10:10 Dose: 4 mg Oxycodone/Acetaminophen (Percocet 5/325 Mg Tab) 2 tab PO Q4 PRN PRN Reason: Pain, severe (8-10) Stop: 04/27/18 21:22 Last Admin: 04/27/18 06:24 Dose: 2 tab Oxycodone/Acetaminophen (Percocet 5/325 Mg Tab) 1 tab PO Q4 PRN PRN Reason: Pain, moderate (4-7) Stop: 04/27/18 21:23 Pantoprazole Sodium (Protonix Ec Tab) 40 mg PO DAILY [facility] Last Admin: 04/26/18 09:05 Dose: 40 mg Prednisone (Prednisone Tab) 30 mg PO DAILY [facility] Last Admin: 04/26/18 09:05 Dose: 30 mg Saccharomyces Boulardii (Florastor) 250 mg PO BID [facility] Last Admin: 04/26/18 16:48 Dose: 250 mg Fluticasone/Salmeterol (Advair Diskus 500/50) 1 puff INH Q12 [facility] Last Admin: 04/26/18 21:11 Dose: 1 puff Zolpidem Tartrate (Ambien) 10 mg PO HS PRN PRN Reason: Insomnia Last Admin: 04/26/18 22:50 Dose: 10 mg - Labs Labs: 04/27/18 04:20 04/27/18 04:20 PT 11.8 Seconds (9.8-13.1) 04/21/18 05:40 INR 1.1 04/21/18 05:40 APTT 27.9 Seconds (25.6-37.1) 04/21/18 05:40 - Constitutional Appears: Non-toxic, No Acute Distress - Head Exam Head Exam: NORMAL INSPECTION - Eye Exam Eye Exam: Normal appearance - ENT Exam ENT Exam: Mucous Membranes Moist - Respiratory Exam Respiratory Exam: NORMAL BREATHING PATTERN. absent: Accessory Muscle Use, Respiratory Distress Additional comments: R CT in place. clamped - Cardiovascular Exam Cardiovascular Exam: REGULAR RHYTHM. absent: Bradycardia, Tachycardia - GI/Abdominal Exam GI & Abdominal Exam: absent: Distended, Soft, Tenderness - Extremities Exam Extremities Exam: Normal Inspection - Neurological Exam Neurological Exam: Alert, Awake, Oriented x3 - Psychiatric Exam Psychiatric exam: Normal Affect, Normal Mood - Skin Skin Exam: Dry, Intact, Warm. absent: Normal Color (vitiligo) Assessment and Plan - Assessment and Plan (Free Text) Assessment: 42 y/o M w/ iatrogenic R PTX s/p RLL lung Bx - AM CXR: no PTX - chest tube to be pulled today - post-pull CXR in 4hrs - cont medical management Pt discussed w/ Dr. Sanaz Shin DO PGY3
[2018-04-27] MEDS: Lactobacillus Acidophilus 500 MU Cap PO SCH ×2 (09:28→17:03)
[2018-04-27] MEDS: Fluticasone-Salmeterol 500-50mcg Diskus INH SCH ×2 (09:28→21:12)
--- NOTE | 2018-04-27 09:28 | CP.PCM.PN ---
Subjective - Date & Time of Evaluation Date of Evaluation: 04/27/18 Time of Evaluation: 08:10 - Subjective Subjective: No acute overnight events. Chest tube clamped yesterday, to be pulled out today. Pt states that he is feeling well this AM. Pain has improved and well controlled. Ambulating and normal BM. Objective - Vital Signs/Intake and Output Vital Signs (last 24 hours): Temp Pulse Resp BP Pulse Ox 97.8 F 93 H 20 108/69 99 04/27/18 08:00 04/27/18 08:00 04/27/18 08:00 04/27/18 08:00 04/27/18 08:00 Intake and Output: 04/27/18 04/27/18 06:59 18:59 Output Total 1550 Balance -1550 - Medications Medications: Current Medications Acetaminophen (Tylenol 325mg Tab) 650 mg PO Q4 PRN PRN Reason: Pain, Mild (1-3) Albuterol (Ventolin Hfa 90 Mcg/Actuation (8 G)) 2 puff IH Q6 PRN PRN Reason: Shortness of Breath Amitriptyline HCl (Elavil) 50 mg PO HS [facility] Last Admin: 04/26/18 21:11 Dose: 50 mg Docusate Sodium (Colace) 100 mg PO DAILY [facility] Last Admin: 04/26/18 09:04 Dose: 100 mg Enoxaparin Sodium (Lovenox) 40 mg SC DAILY [facility] PRN Reason: Protocol Last Admin: 04/26/18 08:30 Dose: Not Given Famotidine (Pepcid) 20 mg PO HS [facility] Last Admin: 04/26/18 21:12 Dose: 20 mg Gabapentin (Neurontin) 300 mg PO TID [facility] Last Admin: 04/26/18 16:48 Dose: 300 mg Home Med (Budesonide [Entocort Ec]) 9 mg PO DAILY [facility] Last Admin: 04/26/18 09:03 Dose: 9 mg Lactobacillus Acidophilus (Bacid Acidophilus) 1 cap PO BID [facility] Last Admin: 04/26/18 16:49 Dose: 1 cap Levalbuterol HCl (Xopenex) 1.25 mg INH RQ4 [facility] Last Admin: 04/27/18 07:24 Dose: Not Given Lidocaine (Lidoderm) 1 ea TD DAILY [facility] Last Admin: 04/26/18 08:30 Dose: Not Given Lorazepam (Ativan) 0.5 mg IVP Q6 PRN PRN Reason: Anxiety Last Admin: 04/26/18 15:46 Dose: 0.5 mg Montelukast Sodium (Singulair) 10 mg PO HS [facility] Last Admin: 04/26/18 21:11 Dose: 10 mg Ondansetron HCl (Zofran Inj) 4 mg IVP Q6 PRN PRN Reason: Nausea/Vomiting Last Admin: 04/18/18 10:10 Dose: 4 mg Oxycodone/Acetaminophen (Percocet 5/325 Mg Tab) 2 tab PO Q4 PRN PRN Reason: Pain, severe (8-10) Stop: 04/27/18 21:22 Last Admin: 04/27/18 06:24 Dose: 2 tab Oxycodone/Acetaminophen (Percocet 5/325 Mg Tab) 1 tab PO Q4 PRN PRN Reason: Pain, moderate (4-7) Stop: 04/27/18 21:23 Pantoprazole Sodium (Protonix Ec Tab) 40 mg PO DAILY [facility] Last Admin: 04/26/18 09:05 Dose: 40 mg Prednisone (Prednisone Tab) 30 mg PO DAILY [facility] Last Admin: 04/26/18 09:05 Dose: 30 mg Saccharomyces Boulardii (Florastor) 250 mg PO BID [facility] Last Admin: 04/26/18 16:48 Dose: 250 mg Fluticasone/Salmeterol (Advair Diskus 500/50) 1 puff INH Q12 [facility] Last Admin: 04/26/18 21:11 Dose: 1 puff Zolpidem Tartrate (Ambien) 10 mg PO HS PRN PRN Reason: Insomnia Last Admin: 04/26/18 22:50 Dose: 10 mg - Labs Labs: 04/27/18 04:20 04/27/18 04:20 PT 11.8 Seconds (9.8-13.1) 04/21/18 05:40 INR 1.1 04/21/18 05:40 APTT 27.9 Seconds (25.6-37.1) 04/21/18 05:40 - Constitutional Appears: No Acute Distress - Head Exam Head Exam: NORMAL INSPECTION - ENT Exam ENT Exam: Mucous Membranes Moist - Respiratory Exam Respiratory Exam: Chest Wall Tenderness (R axilla), Clear to Ausculation Bilateral, NORMAL BREATHING PATTERN. absent: Wheezes Additional comments: Chest tube noted in R axilla, clamped. Dressing intact. - Cardiovascular Exam Cardiovascular Exam: REGULAR RHYTHM, +S1, +S2 - GI/Abdominal Exam GI & Abdominal Exam: Soft, Normal Bowel Sounds. absent: Tenderness - Extremities Exam Extremities Exam: Normal Inspection. absent: Calf Tenderness, Pedal Edema Assessment and Plan - Assessment and Plan (Free Text) Assessment: Assessment/plan: 42 YO Male with PMHx of Severe Persistent asthma, COPD, gastritis, pancreatitis , and Eosinophilic colitis is admitted for right sided pneumothorax. Admission complicated by HAP. Right Pneumothorax -resolved -POD 15 R ant chest tube; R post chest tube pulled 04/22 -Thoracic Surgery on Consult; Dr. Yo; d/c tube today. Repeat CXR post Chest tube removal -Pain management: Oxycodone, and Gabapentin 300 TID -CXR 04/27: no pneumothorax. Chest tube in place -pleural fluid for cx, LDH, protein, cell count, pending; fluid gram stain neg x 24 hrs -Repeat CXR daily per surgery; will get CXR post removal Hospital acquired pneumonia -resolved -Sputum Cx: Growing Klebsiella, Sensitive to meropenem -04/16/18; blood cx no growth final -ID on board; Dr. Swain, recommendations appreciated. Abx d/c 04/26. Total 10 days of abx Meropenem Depressed/Labile mood, Anxiety -Denies SI/HI -Amitriptyline increased to 50mg PO QHS -Psych consulted; recs outpatient psych Lung mass/opacity, RLL -CT (04/08/18) showed multiple areas of patch opacity right lower lobe. Largest 3 cm mass which was selected for lung biopsy. -s/p lung biopsy 04/08/18; lung tissue with marked eosinophilia, lymphoplasmacytic infiltrate with increased IgG4/IgG ratio as well as touton type giant cells. -pulmonary on consult; biopsy finding discussed with Dr. Esposito; rec for pt to see rheumatology. -rheumatology consulted, pending recs -pt may benefit from outpatient allergy/immunology Severe Persistent asthma and COPD -Chronic -continue home medications: Xopenex INH Q4, Fluticasone/salmeterol 1 puff INH BID -Pulmonary consult, Dr. Esposito -C/w Prednisone 30mg PO QD Eosinophilic collitis -chronic, controlled -pain well controlled s/p superior hypogastric plexus block -Patient to follow up with Rheumatology, Dr. Brown as outpatient -Consult GI, Dr. Heart, recommendations appreciated (Spoke with GI: cleared for Prednisone PO daily) -Continue Famotidine 20mg PO QHS, and Budesonide 9mg PO QD -Amitriptyline increased to 50mg PO QHS -c. diff neg; d/c isolation History of systolic disfunction with reduced EF -Asymptomatic -Echo 12/15/17: EF 35-40% DVT prophylaxis -SCDs -PT/OT consulted -Lovenox 40 SC daily
[2018-04-27] MEDS: BUDESONIDE 9 MG PO SCH (09:29)
[2018-04-27] MEDS: Enoxaparin 40 mg Syringe SC SCH (09:30)
[2018-04-27] MEDS: Lidocaine 5% Patch TD SCH (09:30)
[2018-04-27] MEDS: Saccharomyces Boulardi 250 mg Cap PO SCH ×2 (09:31→17:01)
[2018-04-27] MEDS: Pantoprazole 40 mg EC Tab PO SCH (09:32)
--- NOTE | 2018-04-27 13:19 | CP.PCM.PN ---
Subjective - Date & Time of Evaluation Date of Evaluation: 04/27/18 Time of Evaluation: 13:15 - Subjective Subjective: Pt s/e. No sob. cxr am-no pneumothorax. chest tube removed. cxr as scheduled at 2pm today. a/p: cxr pending. Disposition as per Andres Encarnacion provided no pneumo on cxr. Objective - Vital Signs/Intake and Output Vital Signs (last 24 hours): Temp Pulse Resp BP Pulse Ox 97.9 F 90 18 105/69 96 04/27/18 12:00 04/27/18 12:00 04/27/18 12:00 04/27/18 12:00 04/27/18 12:00 Intake and Output: 04/27/18 04/27/18 06:59 18:59 Output Total 1550 Balance -1550 - Medications Medications: Current Medications Acetaminophen (Tylenol 325mg Tab) 650 mg PO Q4 PRN PRN Reason: Pain, Mild (1-3) Albuterol (Ventolin Hfa 90 Mcg/Actuation (8 G)) 2 puff IH Q6 PRN PRN Reason: Shortness of Breath Amitriptyline HCl (Elavil) 50 mg PO HS [facility] Last Admin: 04/26/18 21:11 Dose: 50 mg Docusate Sodium (Colace) 100 mg PO DAILY [facility] Last Admin: 04/27/18 09:29 Dose: 100 mg Enoxaparin Sodium (Lovenox) 40 mg SC DAILY [facility] PRN Reason: Protocol Last Admin: 04/27/18 09:30 Dose: Not Given Famotidine (Pepcid) 20 mg PO HS [facility] Last Admin: 04/26/18 21:12 Dose: 20 mg Gabapentin (Neurontin) 300 mg PO TID [facility] Last Admin: 04/27/18 09:30 Dose: 300 mg Home Med (Budesonide [Entocort Ec]) 9 mg PO DAILY [facility] Last Admin: 04/27/18 09:29 Dose: 9 mg Lactobacillus Acidophilus (Bacid Acidophilus) 1 cap PO BID [facility] Last Admin: 04/27/18 09:28 Dose: 1 cap Levalbuterol HCl (Xopenex) 1.25 mg INH RQ4 [facility] Last Admin: 04/27/18 11:50 Dose: Not Given Lidocaine (Lidoderm) 1 ea TD DAILY [facility] Last Admin: 04/27/18 09:30 Dose: 1 ea Lorazepam (Ativan) 0.5 mg IVP Q6 PRN PRN Reason: Anxiety Last Admin: 04/26/18 15:46 Dose: 0.5 mg Montelukast Sodium (Singulair) 10 mg PO HS [facility] Last Admin: 04/26/18 21:11 Dose: 10 mg Ondansetron HCl (Zofran Inj) 4 mg IVP Q6 PRN PRN Reason: Nausea/Vomiting Last Admin: 04/18/18 10:10 Dose: 4 mg Oxycodone/Acetaminophen (Percocet 5/325 Mg Tab) 2 tab PO Q4 PRN PRN Reason: Pain, severe (8-10) Stop: 04/27/18 21:22 Last Admin: 04/27/18 06:24 Dose: 2 tab Oxycodone/Acetaminophen (Percocet 5/325 Mg Tab) 1 tab PO Q4 PRN PRN Reason: Pain, moderate (4-7) Stop: 04/27/18 21:23 Pantoprazole Sodium (Protonix Ec Tab) 40 mg PO DAILY [facility] Last Admin: 04/27/18 09:32 Dose: 40 mg Prednisone (Prednisone Tab) 30 mg PO DAILY [facility] Last Admin: 04/27/18 09:32 Dose: 30 mg Saccharomyces Boulardii (Florastor) 250 mg PO BID [facility] Last Admin: 04/27/18 09:31 Dose: 250 mg Fluticasone/Salmeterol (Advair Diskus 500/50) 1 puff INH Q12 [facility] Last Admin: 04/27/18 09:28 Dose: 1 puff Zolpidem Tartrate (Ambien) 10 mg PO HS PRN PRN Reason: Insomnia Last Admin: 04/26/18 22:50 Dose: 10 mg - Labs Labs: 04/27/18 04:20 04/27/18 04:20 PT 11.8 Seconds (9.8-13.1) 04/21/18 05:40 INR 1.1 04/21/18 05:40 APTT 27.9 Seconds (25.6-37.1) 04/21/18 05:40
--- NOTE | 2018-04-27 14:51 | PN ---
Copied To: Santos Bruno MD Attending MD: Santos Bruno MD CRITICAL CARE PROGRESS NOTE DATE: 04/27/2018 LOCATION: The patient in ICU bed 421. TIME SPENT: 25 minutes. SUBJECTIVE: The patient is seen and evaluated at the bedside. Past medical, surgical, social and family history reviewed as noted in history and physical. Overnight normotensive, afebrile, ambulatory. Right chest tube planned. No air leak noted. This morning alert, awake, follows commands appropriate. No shortness of breath at rest and on exertion. No cough. No abdominal pain or diarrhea. No dysuria. PHYSICAL EXAMINATION: VITAL SIGNS: Temperature 98.3, heart rate 81 regular, blood pressure 108/69, mean arterial pressure 82, respiratory rate 20, oxygen saturation 99% on nasal cannula two liters. Intake 1100, output 1950, negative balance 850. HEAD, EYES, EARS, NOSE, MOUTH AND THROAT: Pupils reactive. Conjunctivae pink. Sclerae white. NECK: Supple. Trachea central. CHEST: Bilateral breath sounds. Clear to auscultation. HEART: Rhythm regular. S1, S2 normal intensity. No S3, S4, or gallop. No audible murmur. ABDOMEN: Bowel sounds present. Soft. EXTREMITIES: No clubbing or cyanosis. SKIN: With a diffuse vitiligo. CURRENT MEDICATIONS: Tylenol 650 every four hours p.r.n., albuterol two puffs every six hours p.r.n., Elavil 50 mg p.o. at bedtime, Colace 100 mg p.o. daily, Lovenox 40 subcutaneous daily, Pepcid 20 mg daily, Neurontin 300 mg p.o. three times daily, lactobacillus one capsule p.o. twice daily, Xopenex 1.25 mg via nebulizer every six hours, Lidoderm patch daily, Ativan 0.5 mg IV every six hours p.r.n., Singulair 10 mg p.o. at bedtime, Zofran 4 mg IV every six hours p.r.n., Percocet 5/325 mg every four hours p.r.n., Protonix 40 p.o. daily, prednisone 30 mg p.o. daily, Florastor 250 mg twice daily. LABORATORY DATA: WBC 13.3, hemoglobin 11.6, hematocrit 35.4, platelet count 322, neutrophils 69.9, lymphocytes 18, monocytes 7.9. PT 11.8, INR 1.1, PTT 27.9. SMA-7: Sodium 137, potassium 3.6, chloride 101, CO2 of 29, blood urea nitrogen 28, creatinine 0.9, random glucose 91, calcium 8.4, total bilirubin 0.3, AST 20, ALT 48, alkaline phosphatase 95, total protein 6.1, albumin 3.1. Urinalysis negative. C. diff antigen and toxin are negative. MICROBIOLOGY DATA: Sputum culture, Klebsiella pneumonia. Chest x-ray from this morning, no pneumothorax and no new infiltrate noted. IMPRESSION AND PLAN: 1. Neurologic: Alert, awake, follows commands appropriate. Ambulates without difficulty. 2. Pulmonary: Status post pneumothorax. Repeat chest x-ray shows expansion of the right lung, tube being clamped. Followup by CT Surgery to discontinue chest tube. History of chronic persistent asthma/chronic obstructive pulmonary disease, on Xopenex, Advair, Pulmicort. Infiltrate in the right lower lobe, stable and/or improved. Follow up with clinic specialist as outpatient. Sputum showed Klebsiella. He was on meropenem, now discontinued and remains afebrile. 3. Cardiovascular: Hemodynamically stable. Systolic heart failure with mildly reduced ejection fraction 35% to 40%. 4. Renal: No acute issues. Urine output within normal limits. 5. Endocrinology: No acute issues. 6. Gastroenterology: Tolerating regular diet. History of eosinophilic colitis. 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 Follow up with Rheumatology. Continue prednisone and titrate the dose as required. 7. Infectious Disease: No acute issues. Klebsiella pneumonia in the sputum. Off antibiotic. Continue deep venous thrombosis and gastrointestinal prophylaxis with Lovenox and sequential compression device. The patient remains clinically stable, can be transferred from intensive care unit to med surgery floor. Continue followup by Rheumatology. Santos Bruno MD MTDD
--- NOTE | 2018-04-27 15:19 | RAD ---
Date of service: 04/27/2018 PROCEDURE: CHEST RADIOGRAPH, 1 VIEW HISTORY: s/p chest tube removal COMPARISON: None available. FINDINGS: LUNGS: Clear. PLEURA: Status post removal of right apical chest tube. No pneumothorax. No pleural effusion. CARDIOVASCULAR: Normal. OSSEOUS STRUCTURES: No significant abnormalities. VISUALIZED UPPER ABDOMEN: Normal. OTHER FINDINGS: None. IMPRESSION: No pneumothorax status post removal right apical chest tube.
[2018-04-28 00:01] VITALS: RESP 19
[2018-04-28] MEDS: Levalbuterol 1.25 MG/3 ML Inhal Soln UD INH SCH ×3 (00:58→07:36)
[2018-04-28] MEDS ORDERED: Oxycodone/Acetaminophen 5/325 mg Tab PO PRN ×2 (05:54→05:55)
[2018-04-28 07:42] VITALS: BP 100/64; PULSE 76; TEMP 97.7; O2SAT 96
[2018-04-28] MEDS: Fluticasone-Salmeterol 500-50mcg Diskus INH SCH (08:44)
[2018-04-28] MEDS: BUDESONIDE 9 MG PO SCH (08:45)
[2018-04-28] MEDS: Saccharomyces Boulardi 250 mg Cap PO SCH (08:45)
[2018-04-28] MEDS: Lidocaine 5% Patch TD SCH (08:46)
[2018-04-28] MEDS: Enoxaparin 40 mg Syringe SC SCH (08:47)
[2018-04-28] MEDS: Pantoprazole 40 mg EC Tab PO SCH (08:48)
[2018-04-28] MEDS: Lactobacillus Acidophilus 500 MU Cap PO SCH (08:57)
--- NOTE | 2018-04-28 09:14 | CP.PCM.DIS ---
Provider - Provider Date of Admission: 04/13/18 22:05 Attending physician: Vandana Vidales MD Time Spent in preparation of Discharge (in minutes): 35 Diagnosis - Discharge Diagnosis (1) Pneumothorax Status: Acute (2) Eosinophilic colitis Status: Chronic (3) HCAP (healthcare-associated pneumonia) Status: Acute (4) Anxiety Status: Acute (5) COPD (chronic obstructive pulmonary disease) Status: Chronic Hospital Course - Lab Results Lab Results: Micro Results 04/22/18 16:17 Pleural Fluid Gram Stain - Final 04/22/18 16:17 Pleural Fluid Body Fluid Culture - Final No growth. 04/21/18 09:58 Chest Gram Stain - Final 04/21/18 09:58 Chest Wound Culture - Final No growth. 04/21/18 09:58 Chest Gram Stain - Final 04/21/18 09:58 Chest Wound Culture - Final No growth. 04/21/18 19:05 Naris MRSA Culture (Admit) - Final MRSA NOT DETECTED 04/16/18 20:10 Blood-Venous Blood Culture - Final NO GROWTH AFTER 5 DAYS 04/16/18 20:10 Blood-Venous Gram Stain - Final TEST NOT PERFORMED 04/15/18 18:55 Blood Blood Culture - Final NO GROWTH AFTER 5 DAYS 04/15/18 18:55 Blood Gram Stain - Final TEST NOT PERFORMED 04/15/18 18:45 Blood Blood Culture - Final NO GROWTH AFTER 5 DAYS 04/15/18 18:45 Blood Gram Stain - Final TEST NOT PERFORMED 04/18/18 18:19 Naris MRSA Culture (Admit) - Final MRSA NOT DETECTED 04/15/18 19:45 Urine,Clean Catch Urine Culture - Final No Growth (<1,000 CFU/ML) 04/15/18 19:45 Sputum Gram Stain - Final 04/15/18 19:45 Sputum Sputum Culture - Final Klebsiella Pneumoniae Ssp Pneu 04/14/18 10:45 Nose MRSA Culture (Admit) - Final MRSA NOT DETECTED Most Recent Lab Values WBC 13.3 K/uL (4.8-10.8) H 04/27/18 04:20 RBC 3.98 Mil/uL (4.40-5.90) L 04/27/18 04:20 Hgb 11.6 g/dL (12.0-18.0) L 04/27/18 04:20 Hct 35.4 % (35.0-51.0) 04/27/18 04:20 MCV 89.0 fl (80.0-94.0) 04/27/18 04:20 MCH 29.1 pg (27.0-31.0) 04/27/18 04:20 MCHC 32.7 g/dL (33.0-37.0) L 04/27/18 04:20 RDW 16.5 % (11.5-14.5) H 04/27/18 04:20 Plt Count 322 K/uL (130-400) 04/27/18 04:20 MPV 8.2 fl (7.2-11.7) 04/27/18 04:20 Neut % (Auto) 69.9 % (50.0-75.0) 04/27/18 04:20 Lymph % (Auto) 18.0 % (20.0-40.0) L 04/27/18 04:20 H[place]go % (Auto) 7.9 % (0.0-10.0) 04/27/18 04:20 Eos % (Auto) 3.8 % (0.0-4.0) 04/27/18 04:20 Baso % (Auto) 0.4 % (0.0-2.0) 04/27/18 04:20 Neut # (Auto) 9.3 K/uL (1.8-7.0) H 04/27/18 04:20 Lymph # (Auto) 2.4 K/uL (1.0-4.3) 04/27/18 04:20 [place]go # (Auto) 1.0 K/uL (0.0-0.8) H 04/27/18 04:20 Eos # (Auto) 0.5 K/uL (0.0-0.7) 04/27/18 04:20 Baso # (Auto) 0.0 K/uL (0.0-0.2) 04/27/18 04:20 Neutrophils % (Manual) 92 % (42-75) H 04/16/18 04:25 Band Neutrophils % 8 % (0-2) H 04/15/18 19:35 Lymphocytes % (Manual) 6 % (20-50) L 04/16/18 04:25 Monocytes % (Manual) 2 % (0-10) 04/16/18 04:25 Platelet Estimate Normal (NORMAL) 04/16/18 04:25 Large Platelets Present 04/16/18 04:25 Hypochromasia (manual) Slight 04/15/18 19:35 Anisocytosis (manual) Slight 04/16/18 04:25 Macrocytosis (manual) Slight 04/16/18 04:25 Tear Drop Cells Slight 04/16/18 04:25 Ovalocytes Slight 04/16/18 04:25 PT 11.8 Seconds (9.8-13.1) 04/21/18 05:40 INR 1.1 04/21/18 05:40 APTT 27.9 Seconds (25.6-37.1) 04/21/18 05:40 pCO2 33 mm/Hg (35-45) L 04/15/18 18:43 pO2 139 mm/Hg (80-100) H 04/15/18 18:43 HCO3 25.7 mmol/L (21-28) 04/15/18 18:43 ABG pH 7.47 (7.35-7.45) H 04/15/18 18:43 ABG Total CO2 25.0 mmol/L (22-28) 04/15/18 18:43 ABG O2 Saturation 99.7 % (95-98) H 04/15/18 18:43 ABG Base Excess 0.9 mmol/L (-2.0-3.0) 04/15/18 18:43 Stewart Test Yes 04/15/18 18:43 ABG Potassium 3.2 mmol/L (3.6-5.2) L 04/15/18 18:43 VBG pH 7.36 (7.32-7.43) 04/13/18 20:31 VBG pCO2 54 mmHg (40-60) 04/13/18 20:31 VBG HCO3 26.5 mmol/L 04/13/18 20:31 VBG Total CO2 32.2 mmol/L (22-28) H 04/13/18 20:31 VBG O2 Sat (Calc) 30.8 % (40-65) L 04/13/18 20:31 VBG Base Excess 3.7 mmol/L (0.0-2.0) H 04/13/18 20:31 VBG Potassium 3.8 mmol/L (3.6-5.2) 04/13/18 20:31 A-a O2 Difference 34.0 mm/Hg 04/15/18 18:43 Sodium 136.0 mmol/L (132-148) 04/15/18 18:43 Chloride 105.0 mmol/L (98-107) 04/15/18 18:43 Glucose 113 mg/dL (75-110) H 04/15/18 18:43 Lactate 2.4 mmol/L (0.7-2.1) H 04/15/18 18:43 Vent Mode High flow lpm 04/15/18 18:43 FiO2 30.0 % 04/15/18 18:43 Sodium 137 mmol/l (132-148) 04/27/18 04:20 Potassium 3.6 MMOL/L (3.6-5.0) 04/27/18 04:20 Chloride 101 mmol/L (98-107) 04/27/18 04:20 Carbon Dioxide 29 mmol/L (22-30) 04/27/18 04:20 Anion Gap 11 (10-20) 04/27/18 04:20 BUN 28 mg/dl (9-20) H 04/27/18 04:20 Creatinine 0.9 mg/dl (0.8-1.5) 04/27/18 04:20 Est GFR ( Amer) > 60 04/27/18 04:20 Est GFR (Non-Af Amer) > 60 04/27/18 04:20 Random Glucose 91 mg/dL (75-110) 04/27/18 04:20 Lactic Acid 2.7 MMOL/L (0.7-2.1) H 04/16/18 04:25 Calcium 8.4 mg/dL (8.4-10.2) 04/27/18 04:20 Phosphorus 4.0 mg/dl (2.5-4.5) 04/21/18 05:40 Magnesium 2.1 MG/DL (1.6-2.3) 04/21/18 05:40 Total Bilirubin 0.3 mg/dl (0.2-1.3) 04/27/18 04:20 AST 20 U/L (17-59) 04/27/18 04:20 ALT 48 U/L (21-72) 04/27/18 04:20 Alkaline Phosphatase 95 U/L (38-126) 04/27/18 04:20 Lactate Dehydrogenase 318 U/L (313-618) 04/23/18 04:30 Total Protein 6.1 G/DL (6.3-8.2) L 04/27/18 04:20 Albumin 3.1 g/dL (3.5-5.0) L 04/27/18 04:20 Globulin 3.0 gm/dL (2.2-3.9) 04/27/18 04:20 Albumin/Globulin Ratio 1.0 (1.0-2.1) 04/27/18 04:20 Arterial Blood Potassium 3.2 mmol/L (3.6-5.2) L 04/15/18 18:43 Venous Blood Potassium 3.8 mmol/L (3.6-5.2) 04/13/18 20:31 Urine Color Yellow (YELLOW) 04/15/18 19:45 Urine Clarity Clear (Clear) 04/15/18 19:45 Urine pH 5.0 (5.0-8.0) 04/15/18 19:45 Ur Specific Henderson 1.012 (1.003-1.030) 04/15/18 19:45 Urine Protein Negative mg/dL (NEGATIVE) 04/15/18 19:45 Urine Glucose (UA) Neg mg/dL (Normal) 04/15/18 19:45 Urine Ketones Negative mg/dL (NEGATIVE) 04/15/18 19:45 Urine Blood Negative (NEGATIVE) 04/15/18 19:45 Urine Nitrate Negative (NEGATIVE) 04/15/18 19:45 Urine Bilirubin Negative (NEGATIVE) 04/15/18 19:45 Urine Urobilinogen 0.2-1.0 mg/dL (0.2-1.0) 04/15/18 19:45 Ur Leukocyte Esterase Neg Lore[place]/uL (Negative) 04/15/18 19:45 Urine RBC (Auto) 1 /hpf (0-3) 04/15/18 19:45 Urine Microscopic WBC < 1 /hpf (0-5) 04/15/18 19:45 Fluid Source Cancelled 04/22/18 16:17 Fluid Appearance Cancelled 04/22/18 16:17 Fluid WBC Cancelled 04/22/18 16:17 Fluid RBC Cancelled 04/22/18 16:17 Fluid Tot Cell Count Cancelled 04/22/18 16:17 Fluid Neutrophils Cancelled 04/22/18 16:17 Fluid Lymphocytes Cancelled 04/22/18 16:17 Fld Monocyte/Macrophag Cancelled 04/22/18 16:17 Fluid Total Protein 3.7 g/dL (NONE ESTABLISHED) 04/22/18 16:17 Fluid LDH 9813 IU (NONE ESTABLISHED) 04/22/18 16:17 Fluid Comment Cancelled 04/22/18 16:17 Vancomycin Trough 11.5 ug/mL (5.0-10.0) H 04/17/18 10:00 C. difficile Ag & Toxin Negative (NEGATIVE) 04/23/18 18:02 Blood Type O POSITIVE 04/13/18 23:00 Blood Type Confirm O POSITIVE 04/13/18 23:10 Antibody Screen Negative 04/13/18 23:00 BBK History Checked No verified bt 04/13/18 23:00 - Hospital Course Hospital Course: 42 YO Male with PMHx of Severe Persistent asthma, COPD, gastritis, pancreatitis , and Eosinophilic colitis is admitted for right sided pneumothorax. Admission was complicated by pneumonia, ID was consulted s/p 10D Meropenem. Surgery was consulted, s/p chest tube placement (x2) and removal; CXR neg for pneumothroax post removal. Pt cleared for d/c per surgery, follow up in Dr. Yo's clinic in 1 week for suture removal, follow up in [facility] with Dr. Vidales on 05/07/18 at 1:40pm. Of note, lung biopsy (04/08/18) was noted on this admission, discussed with Pulmonary, recommendation was follow up out patient Rheumatology. Home meds Albuterol (Ventolin Hfa 90 Mcg/Actuation (8 G)) 2 puff IH Q6 PRN Home Med (Budesonide [Entocort Ec]) 9 mg PO DAILY [facility] Montelukast Sodium (Singulair) 10 mg PO HS [facility] Pantoprazole Sodium (Protonix Ec Tab) 40 mg PO DAILY [facility] Fluticasone/Salmeterol (Advair Diskus 500/50) 1 puff INH Q12 [facility] New/Med adjustments Meds Zolpidem Tartrate (Ambien) 10 mg PO HS PRN Prednisone (Prednisone Tab) 20 PO daily x 5 days and 10mg PO daily x 5 days Oxycodone/Acetaminophen (Percocet 5/325 Mg Tab) 1 tab PO Q6 x 5 days Gabapentin (Neurontin) 600mg PO BID Amitriptyline HCl (Elavil) 50 mg PO HS x 10 days Discharge Exam - Head Exam Head Exam: NORMAL INSPECTION - Eye Exam Eye Exam: Normal appearance - ENT Exam ENT Exam: Mucous Membranes Moist - Respiratory Exam Respiratory Exam: Chest Wall Tenderness (R axilla, small subcutaneous emphysema appreciated in the posterior axilla), Clear to PA & Lateral, Wheezes (mild, on expiration ), NORMAL BREATHING PATTERN - Cardiovascular Exam Cardiovascular Exam: REGULAR RHYTHM, +S1, +S2 - GI/Abdominal Exam GI & Abdominal Exam: Normal Bowel Sounds, Soft. absent: Guarding, Tenderness - Extremities Exam Extremities exam: normal inspection - Back Exam Back exam: NORMAL INSPECTION - Neurological Exam Neurological exam: Alert - Psychiatric Exam Psychiatric exam: Normal Mood - Skin Additional comments: vitiligo Discharge Plan - Discharge Medications Prescriptions: Amitriptyline [Elavil] 50 mg PO HS #15 tab Gabapentin 600 mg PO BID #60 tablet Montelukast [Singulair] 10 mg PO HS #15 tab oxyCODONE/Acetaminophen [Percocet 5/325 mg Tab] 1 tab PO Q6 #30 tab predniSONE [predniSONE Tab] 10 mg PO DAILY #15 tab Zolpidem [Ambien] 10 mg PO HS PRN #10 tab PRN Reason: Insomnia - Follow Up Plan Condition: FAIR Disposition: HOME/ ROUTINE Instructions: Pneumothorax (Collapsed Lung) (DC), Stitches, Chest Tubes Additional Instructions: Follow up Dr. Ming Alvarado on 05/07/18 at 1:40pm Follow up with Dr. Yo for stitch removal in 1 week ER precautions for dyspnea, chest pain, fever over 100.4 with Tylenol, worsening symptoms Referrals: [employer] [facility] [Outside] [facility] [Outside] Naren Heart MD [Medical Doctor] - Malik Yo MD [Medical Doctor] - Bari Brown MD [Staff Provider] - Rob Pearce-Cabrera Graham MD [Staff Provider] - Vandana Vidales MD [Staff Provider] -
--- NOTE | 2018-04-28 10:51 | RAD ---
Date of service: 04/28/2018 HISTORY: Follow-up COMPARISON: 04/27/2018. FINDINGS: LUNGS: There is developing ill-defined airspace disease in the right lower lobe. The left lung is clear. PLEURA: No significant pleural effusion identified, no pneumothorax apparent. CARDIOVASCULAR: Normal. OSSEOUS STRUCTURES: No significant abnormalities. VISUALIZED UPPER ABDOMEN: Normal. OTHER FINDINGS: Mild right lateral chest wall soft tissue emphysema. IMPRESSION: Developing ill-defined airspace disease in the right lower lobe may represent subsegmental atelectasis or pneumonia. Follow-up to resolution is advised. No pneumothorax.
== END 2018-04-28 10:35 | disposition home or self-care (01) | DRG 541 ==
LOC: H.ER 18:43 → H.ERHOLD 22:05 → OBSVTOIN 22:05 → H.ICU/CCU 04-14 01:02 → H.MEDSURG1 04-18 15:35 → H.ICU/CCU 04-21 16:17 → H.MEDSURG1 04-27 19:07
PROVIDERS: ADMIT Family Medicine Geriatric Medicine; ATTEND Family Medicine Geriatric Medicine
PROC: 0W9930Z Drainage of Right Pleural Cavity with Drainage Device, Percutaneous Approach (ICD-10-PCS; principal; 2018-04-14)
PROC: 0W9930Z Drainage of Right Pleural Cavity with Drainage Device, Percutaneous Approach (ICD-10-PCS; 2018-04-21)
PROC: 0W9930Z Drainage of Right Pleural Cavity with Drainage Device, Percutaneous Approach (ICD-10-PCS; 2018-04-21)
PROC: 0WP9X0Z Removal of Drainage Device from Right Pleural Cavity, External Approach (ICD-10-PCS; 2018-04-21)
DX: J95.811 Postprocedural pneumothorax (principal); I50.22 Chronic systolic (congestive) heart failure; J15.0 Pneumonia due to Klebsiella pneumoniae; M30.1 Polyarteritis with lung involvement [Churg-Strauss]; J45.51 Severe persistent asthma with (acute) exacerbation; J98.11 Atelectasis; J44.0 Chronic obstructive pulmonary disease with (acute) lower respiratory infection; K52.82 Eosinophilic colitis; L80 Vitiligo; K29.70 Gastritis, unspecified, without bleeding; I25.2 Old myocardial infarction; K51.00 Ulcerative (chronic) pancolitis without complications; K76.9 Liver disease, unspecified; G89.29 Other chronic pain; R06.89 Other abnormalities of breathing; F41.9 Anxiety disorder, unspecified; R91.8 Other nonspecific abnormal finding of lung field; R33.9 Retention of urine, unspecified; Y95 Nosocomial condition; T81.82XA Emphysema (subcutaneous) resulting from a procedure, initial encounter; F32.9 Major depressive disorder, single episode, unspecified; Z68.1 Body mass index [BMI] 19.9 or less, adult

== ENCOUNTER 2018-08-26 22:31 | Inpatient (IN) | payer MEDICAID ==
[2018-08-26 22:31] VITALS: BMI 18.2
[2018-08-26] MEDS ORDERED: Magnesium Sulfate 2 GM in Sodium Chloride 0.9% 100 ML IV STA (23:53)
[2018-08-26] MEDS ORDERED: Albuterol-Ipratrop 3 mg / 0.5 (3 ml) UD INH STA (23:53)
[2018-08-27] MEDS ORDERED: Magnesium Sulfate 2 gm/50 ml 2 GM/50 ML BAG ONE (00:06)
[2018-08-27 00:11] LABS: BASO # 0.2 K/uL (0.0-0.2); EOS # 0.9 K/uL (0.0-0.7); EOS % 10.4 % (0.0-4.0); HEMOGLOBIN 14.5 g/dL (12.0-18.0); LYMPH # 1.9 K/uL (1.0-4.3); LYMPH % 21.6 % (20.0-40.0); MEAN CELL VOLUME 88.6 fl (80.0-94.0); MEAN CORPUSCULAR HEMOGLOBIN 28.5 pg (27.0-31.0); MEAN CORPUSCULAR HGB CONC 32.2 g/dL (33.0-37.0); MEAN PLATELET VOLUME 9.9 fl (7.2-11.7); MONO # 1.3 K/uL (0.0-0.8); MONO % 14.4 % (0.0-10.0); NEUT # 4.5 K/uL (1.8-7.0); NEUT % 51.6 % (50.0-75.0); RBC 5.07 Mil/uL (4.40-5.90); RED CELL DISTRIBUTION WIDTH 14.2 % (11.5-14.5); WHITE BLOOD COUNT 8.8 K/uL (4.8-10.8)
[2018-08-27 00:22] LABS: CALCIUM 8.4 mg/dL (8.4-10.2)
[2018-08-27] MEDS ORDERED: Sodium Chloride 0.9% 1,000 ML IV STA (00:29)
--- NOTE | 2018-08-27 00:39 | ED PDOC ---
HPI: SOB/CHF/COPD Time Seen by Provider: 08/26/18 23:38 Chief Complaint (Nursing): Shortness Of Breath Chief Complaint (Provider): Shortness Of Breath History Per: Patient History/Exam Limitations: no limitations Onset/Duration Of Symptoms: Days (x4) Associated Symptoms: Other (Runny nose and productive cough with yellow phlegm) Additional Complaint(s): 43 years old male with history of asthma presents to ER for evaluation of intermittent shortness of breath onset 4 days. Patient reports associated runny nose and productive cough with yellow phlegm. He states he was scheduled today for endoscopy but was canceled due to being short of breath. Patient rep orts he used nebulizer with minimal to no relief. He states he is on prednisone, which was prescribed by his enroute controller. PMD: Brenda Wilde Past Medical History Reviewed: Historical Data, Nursing Documentation, Vital Signs Vital Signs: Last Vital Signs Temp 98.1 F 08/26/18 22:44 Pulse 105 H 08/26/18 23:13 Resp 22 08/26/18 23:15 BP 102/68 08/26/18 23:13 Pulse Ox 93 L 08/26/18 23:15 - Medical History PMH: Asthma, CAD, CHF, COPD, Diverticulitis, Gastritis, Pancreatitis, Pneumonia Denies: HIV, Chronic Kidney Disease - Surgical History Surgical History: No Surg Hx - Family History Family History: States: Unknown Family Hx - Social History Current smoker - smoking cessation education provided: No Alcohol: None Drugs: Denies - Home Medications Home Medications: Ambulatory Orders Medication Instructions Recorded RX: Fluticasone/Salmeterol 500/50 1 puff INH Q12 03/11/18 [Advair Diskus 500/50] RX: Omeprazole 40 mg PO DAILY 03/11/18 RX: Albuterol Sulfate [Ventolin 2 puff IH Q6 PRN 04/05/18 Hfa] RX: Budesonide [Entocort EC] 9 mg PO DAILY 04/05/18 RX: Famotidine [Pepcid] 20 mg PO HS 04/05/18 RX: Montelukast [Singulair] 10 mg PO HS #15 tab 04/28/18 RX: predniSONE [predniSONE Tab] 10 mg PO DAILY #15 tab 04/28/18 - Allergies Allergies/Adverse Reactions: Allergies Allergy/AdvReac Type Severity Reaction Status Date / Time wheat Allergy PAIN Verified 04/07/18 10:57 Review of Systems ROS Statement: Except As Marked, All Systems Reviewed And Found Negative ENT: Positive for: Nose Discharge Respiratory: Positive for: Cough (with productive yellow phlegm), Shortness of Breath Physical Exam - Reviewed Nursing Documentation Reviewed: Yes - Physical Exam Appears: Positive for: Non-toxic, No Acute Distress Head Exam: Positive for: ATRAUMATIC, NORMOCEPHALIC Skin: Positive for: Normal Color, Warm, Dry Neck: Positive for: Normal, Painless ROM, Supple Cardiovascular/Chest: Positive for: Regular Rate, Rhythm. Negative for: Murmur Respiratory: Positive for: Rhonchi, Wheezing (bilateral expiratory), Respiratory Distress (mild) Gastrointestinal/Abdominal: Positive for: Normal Exam, Soft. Negative for: Tenderness Extremity: Positive for: Normal ROM. Negative for: Pedal Edema, Deformity Neurologic/Psych: Positive for: Alert, Oriented (x3) - Laboratory Results Result Diagrams: 08/27/18 00:01 08/27/18 00:01 - ECG O2 Sat by Pulse Oximetry: 93 (RA) Pulse Ox Interpretation: Abnormal Medical Decision Making Medical Decision Making: Time: 2352 Initial Impression: 43 years old male with acute asthma exacerbation Initial Plan: --BTN --BMP --Lactic acid --Troponin --CBC --Chest x-ray --Duoneb --SOLU-Medrol 125 mg IVP --Blood culture --Influenza A B --Peak flow pre/post treatment 0227 --Labs reviewed and show no significant abnormality with exception to elevated BUN and NT-Pro-BNP levels. Patient is on anabolic steroid use, lab arrangement might likely be a result of this life style. --CXR shows an area of early consolidation to right lower lobe. --Upon reevaluation, patient reports persistent wheezing after Duoneb, Magnesium Sulfate and SOLU-Medrol. --Patient will be hospitalized for pneumonia, case referred to Dr. Hobson, the hospitalists. --Diagnosis is pneumonia and asthma exacerbation. --- Scribe Attestation: Documented by Mame Florentino, acting as a scribe for Teddy Bang MD. Provider Scribe Attestation: All medical record entries made by the Scribe were at my direction and personally dictated by me. I have reviewed the chart and agree that the record accurately reflects my personal performance of the history, physical exam, medical decision making, and the department course for this patient. Disposition - Clinical Impression Clinical Impression: Pneumonia, Asthma exacerbation, Acute kidney injury - Patient ED Disposition Is Patient to be Admitted: Yes - Disposition Disposition Time: 02:27 Condition: FAIR - Pt Status Changed To: Hospital Disposition Of: Inpatient - Admit Certification Admit to Inpatient:: After my assessment, the patient will require hospitalization for at least two midnights. This is because of the severity of symptoms shown, intensity of services needed, and/or the medical risk in this patient being treated as an outpatient.
[2018-08-27] MEDS ORDERED: levoFLOXacin 500 mg in D5W 500 MG/100 ML BAG IVPB STA (02:26)
--- NOTE | 2018-08-27 02:44 | CP.PCM.HP ---
<RussellJose - Last Filed: 08/27/18 03:45> History of Present Illness - History of Present Illness History of Present Illness: 43 years old male with history of asthma presents to ED c/o intermittent shortness of breath since 4 days ago. Patient endorses associated runny nose and productive cough with yellow phlegm. Patient states his asthma has been worsening for the past 3 days. He has been using his albuteral inhaler 4-5 times a day along with Advair twice a day with minimal relief. He states he is on prednisone, which was prescribed by his No Experience. Otherwise he denies fev er, chills, nausea, vomiting, chest or abdominal pain, palpitations, dizziness, no urinary sx or changes in BM. Denies recent travels or sick contact. 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 Cardic cath november 2017 at [facility], Hypogastric plexus block Allg: NKDA, reports; pollen allergy, wheat Meds: Albuterol, Nebulizer, Symbicort, Omeprazole, Budesonide SH: Drink socially , occasional marajuana, denies smoking FH: Father history of asthma and hypercholesterolemia. Mother history of trigeminal neuralgia. Present on Admission - Present on Admission Any Indicators Present on Admission: No Review of Systems - Review of Systems All systems: reviewed and no additional remarkable complaints except (HPI) Past Patient History - Infectious Disease Hx of Infectious Diseases: None - Past Medical History & Family History Past Medical History?: Yes - Past Social History Alcohol: None Drugs: Denies - CARDIAC Hx Congestive Heart Failure: Yes - PULMONARY Hx Asthma: Yes Hx Chronic Obstructive Pulmonary Disease (COPD): Yes Hx Pneumonia: Yes - NEUROLOGICAL Hx Neurological Disorder: No - HEENT Hx HEENT Problems: No - RENAL Hx Chronic Kidney Disease: No - ENDOCRINE/METABOLIC Hx Endocrine Disorders: No - HEMATOLOGICAL/ONCOLOGICAL Hx Human Immunodeficiency Virus (HIV): No - INTEGUMENTARY Hx Dermatological Problems: Yes Other/Comment: Vitiligo - MUSCULOSKELETAL/RHEUMATOLOGICAL Hx Falls: No - GASTROINTESTINAL Hx Diverticulitis: Yes Hx Gastritis: Yes Hx Pancreatitis: Yes - GENITOURINARY/GYNECOLOGICAL Hx Genitourinary Disorders: No - PSYCHIATRIC Hx Psychophysiologic Disorder: No Hx Substance Use: No - SURGICAL HISTORY Hx Surgeries: Yes Other/Comment: I&D LEG ABSCESS - ANESTHESIA Hx Anesthesia: Yes Hx Anesthesia Reactions: No Hx Malignant Hyperthermia: No Meds Allergies/Adverse Reactions: Allergies Allergy/AdvReac Type Severity Reaction Status Date / Time wheat Allergy PAIN Verified 04/07/18 10:57 Physical Exam - Constitutional Appears: No Acute Distress - Head Exam Head Exam: NORMAL INSPECTION - Eye Exam Eye Exam: EOMI Pupil Exam: PERRL - ENT Exam ENT Exam: Mucous Membranes Dry - Respiratory Exam Respiratory Exam: Decreased Breath Sounds, Rhonchi (schatered throughout). absent: Accessory Muscle Use, Rales, Respiratory Distress - Cardiovascular Exam Cardiovascular Exam: Tachycardia, REGULAR RHYTHM, +S1, +S2 - GI/Abdominal Exam GI & Abdominal Exam: Normal Bowel Sounds, Soft. absent: Distended, Tenderness - Extremities Exam Extremities exam: Negative for: pedal edema - Neurological Exam Neurological exam: Alert, CN II-XII Intact, Oriented x3 - Skin Skin Exam: Dry, Warm Additional comments: vitiligo Results - Vital Signs Recent Vital Signs: Last Vital Signs Temp 98.1 F 08/26/18 22:44 Pulse 105 H 08/26/18 23:13 Resp 22 08/26/18 23:15 BP 102/68 08/26/18 23:13 Pulse Ox 93 L 08/27/18 02:35 - Labs Result Diagrams: 08/27/18 00:01 08/27/18 00:01 Labs: Laboratory Results - last 24 hr 08/27/18 08/27/18 08/27/18 00:01 00:01 00:35 WBC 8.8 RBC 5.07 Hgb 14.5 D Hct 45.0 MCV 88.6 MCH 28.5 MCHC 32.2 L RDW 14.2 Plt Count 237 MPV 9.9 Neut % (Auto) 51.6 Lymph % (Auto) 21.6 [place] % (Auto) 14.4 H Eos % (Auto) 10.4 H Baso % (Auto) 2.0 Neut # (Auto) 4.5 Lymph # (Auto) 1.9 [place] # (Auto) 1.3 H Eos # (Auto) 0.9 H Baso # (Auto) 0.2 Sodium 141 Potassium 4.0 Chloride 106 Carbon Dioxide 24 Anion Gap 15 BUN 22 H Creatinine 1.8 H Est GFR ( Amer) 50 Est GFR (Non-Af Amer) 41 Random Glucose 93 Calcium 8.4 Influenza Typ A,B (EIA) Negative for flu a/b Assessment & Plan - Assessment and Plan (Free Text) Assessment: 43 yo male with PMH of Severe Persistent asthma, COPD, gastritis and Eosinophilic colitis admitted for pneumonia and asthma exacerbation. Plan: Pneumonia, likely CAP - afebrile, no leukocytosis, mild tachy - lactate 1.5 - flu a/b negative - CXR: viewed by me: consolidation in R lower lobe, pending official report - levaquin x1 on ED - start azithromycin and rocephin IV - tylenol prn for fever - Pulmonology consult, f/u recommendations - labs in am - f/u cx and procalcitonin Asthma Exacerbation - Duoneb Q4 - Solumedrol 40 q8, will taper dose - Continue home Fluticasone/salmeterol BID - Pulmonology consult, f/u recommendations Acute kidney injury - likely due to hypovolemia - BUN/Cr 22/1.8 - gentle hydration at 75 ml/h Eosinophilic colitis - controlled - Continue PPI, Pepcid and budesonide. <Yaniv Hobson - Last Filed: 08/27/18 06:03> Results - Vital Signs Recent Vital Signs: Last Vital Signs Temp 98.1 F 08/26/18 22:44 Pulse 105 H 08/26/18 23:13 Resp 22 08/26/18 23:15 BP 102/68 08/26/18 23:13 Pulse Ox 93 L 08/27/18 04:38 - Labs Result Diagrams: 08/27/18 00:01 08/27/18 00:01 Labs: Laboratory Results - last 24 hr 08/27/18 08/27/18 08/27/18 00:01 00:01 00:35 WBC 8.8 RBC 5.07 Hgb 14.5 D Hct 45.0 MCV 88.6 MCH 28.5 MCHC 32.2 L RDW 14.2 Plt Count 237 MPV 9.9 Neut % (Auto) 51.6 Lymph % (Auto) 21.6 [place] % (Auto) 14.4 H Eos % (Auto) 10.4 H Baso % (Auto) 2.0 Neut # (Auto) 4.5 Lymph # (Auto) 1.9 [place] # (Auto) 1.3 H Eos # (Auto) 0.9 H Baso # (Auto) 0.2 Sodium 141 Potassium 4.0 Chloride 106 Carbon Dioxide 24 Anion Gap 15 BUN 22 H Creatinine 1.8 H Est GFR ( Amer) 50 Est GFR (Non-Af Amer) 41 Random Glucose 93 Lactic Acid Calcium 8.4 Troponin I NT-Pro-B Natriuret Pep Influenza Typ A,B (EIA) Negative for flu a/b 08/27/18 08/27/18 02:45 02:45 WBC RBC Hgb Hct MCV MCH MCHC RDW Plt Count MPV Neut % (Auto) Lymph % (Auto) [place] % (Auto) Eos % (Auto) Baso % (Auto) Neut # (Auto) Lymph # (Auto) [place] # (Auto) Eos # (Auto) Baso # (Auto) Sodium Potassium Chloride Carbon Dioxide Anion Gap BUN Creatinine Est GFR ( Amer) Est GFR (Non-Af Amer) Random Glucose Lactic Acid 1.5 Calcium Troponin I 0.0230 NT-Pro-B Natriuret Pep 1560 H Influenza Typ A,B (EIA) Attending/Attestation - Attestation I have personally seen and examined this patient.: Yes I have fully participated in the care of the patient.: Yes I have reviewed all pertinent clinical information: Yes Notes (Text): 08/27/18 05:34 I saw and examined this patient shoulder to shoulder with Dr Russell. I agree with the assessment and plan outlined above. 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 He will receive Ceftriaxone and Azithromycin for Pneumonia which could be Atypical organism. Follow Procalcitonin. Asthma Exacerbation is being treated with Steroids and bronchodilators. The patient appears to be Dehydrated with labs showing an acute kidney injury for which we will gently rehydrate. He has elevated Pro BNP indicating a Chronic CHF systolic dysfunction. Yaniv Hobson MD 08/27/18 05:48 08/27/18 06:02
[2018-08-27] MEDS ORDERED: levoFLOXacin 500 mg in D5W 500 MG/100 ML BAG IVPB ONE (03:00)
[2018-08-27] MEDS ORDERED: Albuterol HFA 90 mcg/actuation (8 g) IH PRN (03:15)
[2018-08-27 03:22] LABS: TROPONIN I 0.023 ng/mL (0.00-0.120)
[2018-08-27] MEDS: Sodium Chloride 0.9% 1,000 ML IV SCH ×2 (03:38→17:49)
[2018-08-27] MEDS: Albuterol-Ipratrop 3 mg / 0.5 (3 ml) UD INH SCH ×5 (04:04→19:33)
[2018-08-27] MEDS ORDERED: Albuterol-Ipratrop 3 mg / 0.5 (3 ml) UD INH PRN (05:53)
[2018-08-27] MEDS ORDERED: cefTRIAXone (Rocephin) 1 gm Inj ONE (08:16)
[2018-08-27] MEDS ORDERED: Albuterol-Ipratrop 3 mg / 0.5 (3 ml) UD ONE ×2 (08:52→12:17)
[2018-08-27] MEDS: guaiFENesin-DM 600-30 mg ER Tab PO SCH ×2 (08:56→17:49)
[2018-08-27] MEDS: Pantoprazole 40 mg EC Tab PO SCH (08:56)
[2018-08-27] MEDS ORDERED: Patient's Own Med (Omeprazole [Omeprazole] 40 MG) PO SCH (09:00)
[2018-08-27] MEDS ORDERED: BUDESONIDE 9 MG PO SCH (09:00)
[2018-08-27] MEDS ORDERED: Fluticasone-Salmeterol 500-50mcg Diskus INH SCH (09:00)
[2018-08-27] MEDS ORDERED: Azithromycin 500 MG in Sodium Chloride 0.9% 250 ML IVPB ONE (09:00)
[2018-08-27] MEDS: MethylPREDNISolone 40 mg Vial IVP SCH ×2 (09:04→17:50)
[2018-08-27] MEDS ORDERED: Azithromycin 500 MG IV IVPB ONE (09:53)
[2018-08-27] MEDS ORDERED: Sodium Chloride 3% for Inhalation 4 ML VIAL.NEB IH PRN (13:37)
--- NOTE | 2018-08-27 13:47 | RAD ---
Date of service: 08/26/2018 HISTORY: cough COMPARISON: 04/28/2018 FINDINGS: LUNGS: Technically limited examination due to severely oblique positioning. No definite infiltrate. PLEURA: No significant pleural effusion identified, no pneumothorax apparent. CARDIOVASCULAR: No aortic atherosclerotic calcification present. Normal cardiac size. No pulmonary vascular congestion. OSSEOUS STRUCTURES: No significant abnormalities. VISUALIZED UPPER ABDOMEN: Normal. OTHER FINDINGS: None. IMPRESSION: Normal limited examination.
--- NOTE | 2018-08-27 15:37 | CARD ---
APPROVED REPORT Date of service: 08/26/2018 EKG Measurement Heart [id number] <Conclusion> Sinus tachycardia Possible Left atrial enlargement Rightward axis Nonspecific ST changes Abnormal ECG
[2018-08-27] MEDS: Fluticasone-Salmeterol 250-50mcg Diskus IH SCH (20:56)
[2018-08-28] MEDS: MethylPREDNISolone 40 mg Vial IVP SCH (00:14)
[2018-08-28] MEDS: Albuterol-Ipratrop 3 mg / 0.5 (3 ml) UD INH SCH ×5 (00:35→15:50)
--- NOTE | 2018-08-28 01:00 | CON ---
DATE: 08/27/2018 HISTORY OF PRESENT ILLNESS: Mr. Avalos is a 43-year-old male who is admitted by the hospitalist and referred for pulmonary evaluation because of shortness of breath, exercise intolerance, cough for the past several days prior to presentation. He was sent to the emergency room where he was found to have pneumonia and then advised workup and therapy. PAST MEDICAL HISTORY: He has a past medical history of biopsy-proven immunoglobulin, inflammation within the airways. It is not sure of exactly what this is, what he has been on steroids for about a year. He also has asthma, diverticular disease, gastritis, pneumonia in the past, and questionable COPD. FAMILY HISTORY: Nonrevealing. SOCIAL HISTORY: Socially, he does not smoke or drink, but indicates that he has been exposed to secondhand smoke from both parents, and presently works at the [employer]. Does not use drugs. REVIEW OF SYSTEMS: Remarkable for shortness of breath and tightness in the chest. PHYSICAL EXAMINATION: GENERAL: The patient is alert, oriented, appears to be much more comfortable since admission. VITAL SIGNS: Remarkable for blood pressure of 115/74, pulse of 110, respiratory rate 17-20 per minute, O2 sat 95% on room air. He is afebrile with a temp of 98.4 degrees Fahrenheit. SKIN: Shows fair turgor. HEENT: Pupils equal and react to light and accommodation. Mouth shows fair hygiene. NECK: JVP is flat. LUNGS: Bilateral scattered rales and wheezing. HEART: S1, S2. ABDOMEN: Soft, nontender. No organomegaly. EXTREMITIES: Show no edema or cyanosis. CENTRAL NERVOUS SYSTEM: Grossly intact. LABORATORY DATA: Sodium 141, potassium 4, BUN 22, creatinine 1.8, proBNP 1560. WBC 8.8, hemoglobin 14.5, platelet count 237,000, neutrophils 51, lymphocytes 21, monos 14, eos 10. Chest x-ray, official report pending, but read by me shows hilar fullness with a right lower lobe infiltrate. IMPRESSION: Pneumonia, right lung; acute exacerbation of chronic obstructive pulmonary disease/asthma. PLAN: Continue IV antibiotics and steroids as well as bronchodilators and oxygen therapy. We would obtain sputum for Gram stain and cultures. Blood cultures already ordered. Further therapy will depend on findings. Sourav Lomas MD [facility] # [id number]
[2018-08-28 06:47] LABS: HEMOGLOBIN 13.3 g/dL (12.0-18.0); MEAN CELL VOLUME 88.5 fl (80.0-94.0); MEAN CORPUSCULAR HEMOGLOBIN 28.6 pg (27.0-31.0); MEAN CORPUSCULAR HGB CONC 32.3 g/dL (33.0-37.0); RBC 4.65 Mil/uL (4.40-5.90); RED CELL DISTRIBUTION WIDTH 14.1 % (11.5-14.5); WHITE BLOOD COUNT 10.1 K/uL (4.8-10.8)
[2018-08-28 07:11] LABS: BLOOD UREA NITROGEN 24 mg/dl (9-20); CALCIUM 8.4 mg/dL (8.4-10.2); GFR NON-AFRICAN AMERICAN 55
[2018-08-28 07:41] VITALS: RESP 20
[2018-08-28] MEDS ORDERED: MethylPREDNISolone 40 mg Vial IVP SCH (09:00)
[2018-08-28] MEDS ORDERED: Azithromycin 250 MG in Sodium Chloride 0.9% 250 ML IVPB SCH (09:00)
[2018-08-28] MEDS: guaiFENesin-DM 600-30 mg ER Tab PO SCH (10:38)
[2018-08-28] MEDS: Pantoprazole 40 mg EC Tab PO SCH (10:45)
--- NOTE | 2018-08-28 11:45 | CP.PCM.PN ---
Subjective - Date & Time of Evaluation Date of Evaluation: 08/28/18 Time of Evaluation: 11:47 - Subjective Subjective: PT IS UPSET ABOUT BEING IN THE HOSPITAL HE DOES NOT WANT TO SEE HEALTHCARE PROFESSIONALS WHO KEEP TELLING HIM THE SAME THINGS HE STATES THAT HE CAN DO THE SAME THING AT HOME AND WANTS TO HAVE HIS IVS REMOVED SO THAT HE CAN GO HOME HE IS APPREHENSIVE AND IS REFUSING FURTHER WORKUP HE ELOPED FROM THE FLOOR EARLIER Objective - Vital Signs/Intake and Output Vital Signs (last 24 hours): Temp Pulse Resp BP Pulse Ox 98.2 F 103 H 20 104/64 95 08/28/18 07:40 08/28/18 07:40 08/28/18 07:40 08/28/18 07:40 08/28/18 07:40 - Medications Medications: Current Medications Acetaminophen (Tylenol 325mg Tab) 650 mg PO Q6 PRN PRN Reason: Fever >100.4 F Albuterol/Ipratropium (Duoneb 3 Mg/0.5 Mg (3 Ml) Ud) 3 ml INH RQ4 DARIEL Last Admin: 08/28/18 08:18 Dose: 3 ml Albuterol/Ipratropium (Duoneb 3 Mg/0.5 Mg (3 Ml) Ud) 3 ml INH RQ2 PRN PRN Reason: Shortness of Breath Alprazolam (Xanax) 0.25 mg PO Q12 PRN PRN Reason: Anxiety Last Admin: 08/27/18 20:15 Dose: 0.25 mg Famotidine (Pepcid) 20 mg PO HS DARIEL Last Admin: 08/27/18 21:00 Dose: Not Given Guaifenesin/Dextromethorphan (Mucinex-Dm 600-30 Mg) 1 tab PO BID DARIEL Last Admin: 08/28/18 10:38 Dose: 1 tab Home Med (Budesonide [Entocort Ec]) 9 mg PO DAILY DARIEL Ceftriaxone Sodium 1 gm/ (Sodium Chloride) 100 mls @ 100 mls/hr IVPB DAILY DARIEL; Protocol Last Admin: 08/28/18 10:39 Dose: 100 mls/hr Azithromycin 250 mg/ Sodium (Chloride) 250 mls @ 250 mls/hr IVPB DAILY DARIEL; Protocol Last Admin: 08/28/18 10:45 Dose: 250 mls/hr Methylprednisolone (Solu-Medrol) 40 mg IVP Q12 DARIEL Last Admin: 08/28/18 10:44 Dose: 40 mg Pantoprazole Sodium (Protonix Ec Tab) 40 mg PO DAILY DARIEL Last Admin: 08/28/18 10:45 Dose: 40 mg Fluticasone/Salmeterol (Advair Diskus 250/50) 1 puff IH Q12 DARIEL Last Admin: 08/27/18 20:56 Dose: 1 puff Zolpidem Tartrate (Ambien) 5 mg PO HS PRN PRN Reason: Insomnia Last Admin: 08/28/18 01:22 Dose: 5 mg - Labs Labs: 08/28/18 06:12 08/28/18 06:12 Assessment and Plan - Assessment and Plan (Free Text) Assessment: PNEUMONIA ASTHMA HX OF GRANULOMATOUS LUNG DZ--IGG4 DZ PER PT Plan: WILL SIGN OFF CASE OK TO D/C PT FROM THE PULMONARY VIEW PONIT AND HAVE HIM FOLLOW UP WITH HIS PMD
[2018-08-28] MEDS: Fluticasone-Salmeterol 250-50mcg Diskus IH SCH (12:00)
[2018-08-28 12:08] VITALS: BP 117/77; PULSE 108; TEMP 97.5; O2SAT 96
--- NOTE | 2018-08-28 15:08 | CP.PCM.DIS ---
Provider - Provider Date of Admission: 08/27/18 02:24 Attending physician: Yaniv Hobson Primary care physician: Dr Sanches at [facility] [place]. Consults: 08/27/18 03:10 Pulmonology Consult Stat Comment: Consulting Provider: Sourav Lomas I Consulting Physician: Sourav Lomas I Reason for Consult: pneumonia, asthma exacerbation Time Spent in preparation of Discharge (in minutes): 35 Diagnosis - Discharge Diagnosis (1) Acute bronchitis Status: Acute Comment: -D/C'ed home on Levofloxacin 500mg daily for 7 days. (2) Acute kidney injury Status: Acute Comment: -Creatinine improved remarkable after IV fluids. Antibiotic dose was decreased to 500 mg from 750 to protect kidney function. Hospital Course - Lab Results Lab Results: Micro Results 08/27/18 03:15 Blood-Venous Blood Culture - Preliminary NO GROWTH AFTER 24 HOURS 08/27/18 02:45 Blood-Venous Blood Culture - Preliminary NO GROWTH AFTER 24 HOURS Most Recent Lab Values WBC 10.1 K/uL (4.8-10.8) 08/28/18 06:12 RBC 4.65 Mil/uL (4.40-5.90) 08/28/18 06:12 Hgb 13.3 g/dL (12.0-18.0) 08/28/18 06:12 Hct 41.2 % (35.0-51.0) 08/28/18 06:12 MCV 88.5 fl (80.0-94.0) 08/28/18 06:12 MCH 28.6 pg (27.0-31.0) 08/28/18 06:12 MCHC 32.3 g/dL (33.0-37.0) L 08/28/18 06:12 RDW 14.1 % (11.5-14.5) 08/28/18 06:12 Plt Count 204 K/uL (130-400) 08/28/18 06:12 MPV 9.9 fl (7.2-11.7) 08/27/18 00:01 Neut % (Auto) 51.6 % (50.0-75.0) 08/27/18 00:01 Lymph % (Auto) 21.6 % (20.0-40.0) 08/27/18 00:01 [place] % (Auto) 14.4 % (0.0-10.0) H 08/27/18 00:01 Eos % (Auto) 10.4 % (0.0-4.0) H 08/27/18 00:01 Baso % (Auto) 2.0 % (0.0-2.0) 08/27/18 00:01 Neut # (Auto) 4.5 K/uL (1.8-7.0) 08/27/18 00:01 Lymph # (Auto) 1.9 K/uL (1.0-4.3) 08/27/18 00:01 [place] # (Auto) 1.3 K/uL (0.0-0.8) H 08/27/18 00:01 Eos # (Auto) 0.9 K/uL (0.0-0.7) H 08/27/18 00:01 Baso # (Auto) 0.2 K/uL (0.0-0.2) 08/27/18 00:01 Sodium 139 mmol/l (132-148) 08/28/18 06:12 Potassium 4.6 MMOL/L (3.6-5.0) 08/28/18 06:12 Chloride 106 mmol/L (98-107) 08/28/18 06:12 Carbon Dioxide 23 mmol/L (22-30) 08/28/18 06:12 Anion Gap 15 (10-20) 08/28/18 06:12 BUN 24 mg/dl (9-20) H 08/28/18 06:12 Creatinine 1.4 mg/dl (0.8-1.5) 08/28/18 06:12 Est GFR ( Amer) > 60 08/28/18 06:12 Est GFR (Non-Af Amer) 55 08/28/18 06:12 Random Glucose 123 mg/dL (75-110) H 08/28/18 06:12 Lactic Acid 1.5 MMOL/L (0.7-2.1) 08/27/18 02:45 Calcium 8.4 mg/dL (8.4-10.2) 08/28/18 06:12 Troponin I 0.0230 ng/mL (0.00-0.120) 08/27/18 02:45 NT-Pro-B Natriuret Pep 1560 pg/ml (0-450) H 08/27/18 02:45 Procalcitonin < 0.05 NG/ML (0.19-0.49) L 08/27/18 06:00 Influenza Typ A,B (EIA) Negative for flu a/b (NEGATIVE) 08/27/18 00:35 Ur L.pneumophila Ag Negative (NEGATIVE) 08/27/18 11:10 - Hospital Course Hospital Course: 43 years old male with hx of Asthma, CHF with EF 35-40% on 12/12/17, 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 Initial CXR showed a right hilar infiltrate which was suspicious for pneumonia. Pt received 1x dose of Levofloxacin yesterday and 1x dose of Azithromycin today. Magnessium Sulfate was given x1 and home medications were resumed. Duoneb every 4 hrs and Solu-Medrol were administered. Paint Factory Worker at hospital evaluated patient who recommended to continue with home medication. Repeated chest X-ray today, 08/28/18, showed NO pneumonia. Today, pt reported feeling OK, physcail exam showed improvement, only mild wheezing on b/l lower lobes. Pt is stable to be discharged, Levofloxacin for 7 days was prescribed. Pt needs to see PCP within 7 days, f/u with his hospital cna for chronic issues. - Date & Time of H&P Date of H&P: 08/27/18 Time of H&P: 02:43 Discharge Exam - Head Exam Head Exam: ATRAUMATIC, NORMOCEPHALIC - Eye Exam Eye Exam: EOMI, Normal appearance - ENT Exam ENT Exam: Mucous Membranes Moist - Neck Exam Neck exam: Full Rom, Normal Inspection - Respiratory Exam Respiratory Exam: Wheezes (mild on b/l lower villegas), NORMAL BREATHING PATTERN, UNREMARKABLE. absent: Chest Wall Tenderness, Rales, Respiratory Distress - Cardiovascular Exam Cardiovascular Exam: REGULAR RHYTHM, +S1, +S2 - GI/Abdominal Exam GI & Abdominal Exam: Normal Bowel Sounds, Soft. absent: Distended, Guarding, Tenderness - Extremities Exam Extremities exam: full ROM, normal capillary refill, normal inspection - Neurological Exam Neurological exam: Alert, Oriented x3 Discharge Plan - Discharge Medications Prescriptions: Levofloxacin [Levaquin] 500 mg PO DAILY #7 tablet - Follow Up Plan Condition: FAIR Disposition: HOME/ ROUTINE Instructions: Asthma, Adult (DC), Exacerbation of COPD (DC) Additional Instructions: Please take Levofloxacin 500mg daily for 7 days. F/U with PCP within 1 week and pneumologist when possible.
--- NOTE | 2018-08-28 17:05 | RAD ---
Date of service: 08/28/2018 HISTORY: Suspected Pneumonia COMPARISON: Gabriella in made with prior study 08/26/2018 TECHNIQUE: Chest PA and lateral FINDINGS: LUNGS: Increased and coarsened interstitial markings; rule out sequela of reactive/inflammatory airway disease or viral illness. There is also a thin triangular-shaped area of atelectasis and/or scarring right lung base. Vague nodular density right CP angle region. Repeat chest radiographs following treatment recommended PLEURA: No significant pleural effusion identified. No pneumothorax apparent. CARDIOVASCULAR: No aortic atherosclerotic calcification present. Normal cardiac size. OSSEOUS STRUCTURES: No significant abnormalities. VISUALIZED UPPER ABDOMEN: Normal. OTHER FINDINGS: None. IMPRESSION: Increased and coarsened interstitial markings; rule out sequela of reactive/inflammatory airway disease or viral illness. There is also a thin triangular-shaped area of atelectasis and/or scarring right lung base. Vague nodular density right CP angle region. Repeat chest radiographs following treatment recommended
== END 2018-08-28 16:41 | disposition home or self-care (01) | DRG 588 ==
LOC: H.ER 22:31 → H.ERHOLD 08-27 02:24 → H.TEL 08-27 13:20
PROVIDERS: ADMIT Internal Medicine; ATTEND Internal Medicine
DX: J45.51 Severe persistent asthma with (acute) exacerbation (principal); J18.9 Pneumonia, unspecified organism; N17.9 Acute kidney failure, unspecified; I50.22 Chronic systolic (congestive) heart failure; J44.0 Chronic obstructive pulmonary disease with (acute) lower respiratory infection; J44.1 Chronic obstructive pulmonary disease with (acute) exacerbation; E86.0 Dehydration; E86.1 Hypovolemia; I25.10 Atherosclerotic heart disease of native coronary artery without angina pectoris; L80 Vitiligo; K29.70 Gastritis, unspecified, without bleeding; K52.82 Eosinophilic colitis; I25.2 Old myocardial infarction; Z98.61 Coronary angioplasty status; Z91.018 Allergy to other foods; J20.9 Acute bronchitis, unspecified

== ENCOUNTER 2018-09-20 11:52 | Observation (INO) | payer MEDICAID ==
[2018-09-20 11:55] VITALS: BMI 24.0
[2018-09-20] MEDS ORDERED: Albuterol-Ipratrop 3 mg / 0.5 (3 ml) UD INH STA ×3 (12:18→12:23)
[2018-09-20] MEDS ORDERED: Sodium Chloride 0.9% 1,000 ML IV STA (12:21)
--- NOTE | 2018-09-20 12:23 | ED PDOC ---
HPI: General Adult Time Seen by Provider: 09/20/18 12:22 Chief Complaint (Nursing): Fever Chief Complaint (Provider): fever/cough History Per: Patient (43 y/o male h/o autoimmune disease on prednisone 30 daily here with cough/fever x 2 days. Has h/o recent pneumonia 1 month ago. Did not take any antipyretic today. Patient also notes anxiety and request medication to help appease.) Past Medical History Reviewed: Historical Data, Nursing Documentation, Vital Signs Vital Signs: Last Vital Signs Temp 100.6 F H 09/20/18 11:56 Pulse 128 H 09/20/18 11:56 Resp 20 09/20/18 11:56 BP 123/54 L 09/20/18 11:56 Pulse Ox 93 L 09/20/18 11:56 - Medical History PMH: Asthma, CAD, CHF, COPD, Diverticulitis, Gastritis, Hypercholesterolemia, Pancreatitis, Pneumonia Denies: HIV, Chronic Kidney Disease - Family History Family History: States: Unknown Family Hx - Home Medications Home Medications: Ambulatory Orders Medication Instructions Recorded Albuterol 0.5% [Albuterol 0.5% 2.5 mg IH Q6 PRN #1 neb 09/21/18 Inhal Cassidy (2.5 mg/0.5 ml) UD] Albuterol Sulfate [Ventolin Hfa] 2 puff IH Q4 PRN #1 hfa.aer.ad 09/21/18 Azithromycin 250 mg PO DAILY #4 tablet 09/21/18 Escitalopram [Lexapro] 5 mg PO DAILY #30 tab 09/21/18 Fluticasone/Salmeterol [Airduo 1 puff IH Q12 #1 aer.pow.ba 09/21/18 Respiclick 232-14 Mcg] predniSONE [predniSONE Tab] 30 mg PO DAILY #90 tab 09/21/18 traZODone [Desyrel] 50 mg PO HS #30 tab 09/21/18 - Allergies Allergies/Adverse Reactions: Allergies Allergy/AdvReac Type Severity Reaction Status Date / Time wheat Allergy PAIN Verified 09/20/18 12:08 oseltamivir [From Tamiflu] AdvReac HEADACHE Verified 09/20/18 20:03 Review of Systems ROS Statement: Except As Marked, All Systems Reviewed And Found Negative Physical Exam - Reviewed Nursing Documentation Reviewed: Yes Vital Signs Reviewed: Yes - Physical Exam Appears: Positive for: Well, Non-toxic, No Acute Distress Head Exam: Positive for: ATRAUMATIC, NORMAL INSPECTION, NORMOCEPHALIC Skin: Positive for: Normal Color, Warm, DRY Eye Exam: Positive for: EOMI, Normal appearance, PERRL ENT: Positive for: Normal ENT Inspection Neck: Positive for: Normal, Painless ROM Cardiovascular/Chest: Positive for: Regular Rate, Rhythm Respiratory: Positive for: Wheezing Gastrointestinal/Abdominal: Positive for: Normal Exam, Soft Back: Positive for: Normal Inspection Extremity: Positive for: Normal ROM Neurologic/Psych: Positive for: Alert, Oriented - Laboratory Results Result Diagrams: 09/21/18 04:25 09/21/18 04:25 - ECG O2 Sat by Pulse Oximetry: 93 - Progress ED Course And Treament: cxr: no acute infiltrate. flu A positive. patient refused tamiflu, states it causes him hallucinations. Duoneb x 3 solumedrol 125mg iv x 1 dose BC x 2 Persistent wheezing/mild respiratory distress noted d/w Dr. Pickard. Disposition - Clinical Impression Clinical Impression: Influenza A, COPD exacerbation - Patient ED Disposition Is Patient to be Admitted: Yes - Disposition Disposition Time: 15:00 Condition: STABLE - Pt Status Changed To: Hospital Disposition Of: Observation
[2018-09-20] MEDS ORDERED: Albuterol-Ipratrop 3 mg / 0.5 (3 ml) UD ONE ×2 (12:27→17:05)
[2018-09-20 12:54] LABS: VENOUS BLOOD GAS BASE EXCESS 2.1 mmol/L (0.0-2.0); VENOUS BLOOD GAS PCO2 35 mmHg (40-60); VENOUS BLOOD GAS PO2 44 mm/Hg (30-55); VENOUS BLOOD PH 7.47 (7.32-7.43)
[2018-09-20 13:25] LABS: BASO % 0.3 % (0.0-2.0); EOS # 0.1 K/uL (0.0-0.7); HEMOGLOBIN 14.5 g/dL (12.0-18.0); LYMPH # 0.7 K/uL (1.0-4.3); LYMPH % 7.2 % (20.0-40.0); MEAN CELL VOLUME 85.8 fl (80.0-94.0); MEAN CORPUSCULAR HGB CONC 32.6 g/dL (33.0-37.0); MEAN PLATELET VOLUME 9.9 fl (7.2-11.7); MONO % 9.6 % (0.0-10.0); NEUT # 8.4 K/uL (1.8-7.0); NEUT % 81.9 % (50.0-75.0); PLATELET COUNT 195 K/uL (130-400); RBC 5.16 Mil/uL (4.40-5.90); RED CELL DISTRIBUTION WIDTH 14.7 % (11.5-14.5); WHITE BLOOD COUNT 10.3 K/uL (4.8-10.8)
[2018-09-20 13:33] LABS: ALB/GLOB RATIO 1.1 (1.0-2.1); ALBUMIN 3.7 g/dL (3.5-5.0); ALT/SGPT 69 U/L (21-72); AST/SGOT 33 U/L (17-59); BLOOD UREA NITROGEN 16 mg/dl (9-20); CALCIUM 8.6 mg/dL (8.4-10.2); GFR NON-AFRICAN AMERICAN 55
--- NOTE | 2018-09-20 13:59 | RAD ---
Date of service: 09/20/2018 HISTORY: Cough COMPARISON: 08/28/2018. FINDINGS: LUNGS: The lungs are hyperinflated and there is peribronchial thickening with chronic changes in both lungs. There is chronic scarring in the left lower lobe. No focal consolidation. PLEURA: No pleural effusions or pneumothorax. CARDIOVASCULAR: The heart is normal in size. No aortic atherosclerotic calcifications present. OSSEOUS STRUCTURES: Within normal limits for the patient's age. VISUALIZED UPPER ABDOMEN: Normal. OTHER FINDINGS: None. IMPRESSION: No active pulmonary disease. COPD.
[2018-09-20 14:59] LABS: EOSINOPHIL 1 % (0-7); LYMPHOCYTE 5 % (20-50); MONOCYTE 10 % (0-10); NEUTROPHIL 84 % (42-75); PLATELET ESTIMATE NORMAL (NORMAL); TOTAL CELLS COUNTED 100
[2018-09-20 15:00] LABS: ANISOCYTOSIS SLIGHT
[2018-09-20] MEDS ORDERED: Albuterol-Ipratrop 3 mg / 0.5 (3 ml) UD INH SCH (16:00)
--- NOTE | 2018-09-20 16:01 | CP.PCM.HP ---
History of Present Illness - History of Present Illness History of Present Illness: 43 years old male with an extensive PMH (below) presents to ED c/o fever, chills, malaise, and cough which began 1 day prior. He was admitted last month for pneumonia. In the ED he was found to be febrile (Tmax 100.6F) and tachycardic (HR range 109-128). Flu Positive but declines Tamiflu due to adverse effects he has had in the past (hallucinations, nightmares). He also complains of anxiety and requests for medical management however he is not on any home anxiolytic. Otherwise he denies nausea, vomiting, chest or abdominal pain, palpitations, dizziness, and no urinary sx or changes in BM. Denies recent travels or sick contact. 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 Cardic cath november 2017 at [facility], Hypogastric plexus block Allg: NKDA, reports; pollen allergy, wheat Meds: Albuterol, Nebulizer, Symbicort, Omeprazole, Budesonide SH: Drink socially , occasional marajuana, denies smoking FH: Father history of asthma and hypercholesterolemia. Mother history of trigeminal neuralgia. ED Course: Vitals: T 100.6F HR 128 BP 123/54 O2 sat (RA) 93% CXR: no active disease, COPD Tamiflu, DuoNeb x3, Solumedrol 125 mg, Solumedrol 60 mg IVPB Q8, Ativan 0.5 mg, Tylenol 975mg Present on Admission - Present on Admission Any Indicators Present on Admission: No Review of Systems - Constitutional Constitutional: As Per HPI - Cardiovascular Cardiovascular: absent: Chest Pain, Edema - Respiratory Respiratory: As Per HPI - Gastrointestinal Gastrointestinal: absent: Diarrhea, Nausea, Vomiting - Psychiatric Psychiatric: As Per HPI Past Patient History - Infectious Disease Hx of Infectious Diseases: None - Past Medical History & Family History Past Medical History?: Yes - Past Social History Smoking Status: Never Smoked - CARDIAC Hx Congestive Heart Failure: Yes Hx Hypercholesterolemia: Yes - PULMONARY Hx Asthma: Yes Hx Chronic Obstructive Pulmonary Disease (COPD): Yes Hx Pneumonia: Yes - NEUROLOGICAL Hx Neurological Disorder: No - HEENT Hx HEENT Problems: No - RENAL Hx Chronic Kidney Disease: No - ENDOCRINE/METABOLIC Hx Endocrine Disorders: No - HEMATOLOGICAL/ONCOLOGICAL Hx Human Immunodeficiency Virus (HIV): No - INTEGUMENTARY Hx Dermatological Problems: No - MUSCULOSKELETAL/RHEUMATOLOGICAL Hx Falls: No - GASTROINTESTINAL Hx Diverticulitis: Yes Hx Gastritis: Yes Hx Pancreatitis: Yes - GENITOURINARY/GYNECOLOGICAL Hx Genitourinary Disorders: No - PSYCHIATRIC Hx Psychophysiologic Disorder: No Hx Substance Use: No - SURGICAL HISTORY Hx Surgeries: Yes Other/Comment: I&D LEG ABSCESS - ANESTHESIA Hx Anesthesia: Yes Hx Anesthesia Reactions: No Hx Malignant Hyperthermia: No Meds Allergies/Adverse Reactions: Allergies Allergy/AdvReac Type Severity Reaction Status Date / Time wheat Allergy PAIN Verified 09/20/18 12:08 Physical Exam - Constitutional Appears: Non-toxic, No Acute Distress - Head Exam Head Exam: NORMAL INSPECTION - Eye Exam Eye Exam: Normal appearance - ENT Exam ENT Exam: Mucous Membranes Moist - Respiratory Exam Respiratory Exam: Decreased Breath Sounds, Wheezes (bilaterally), NORMAL BREATHING PATTERN - Cardiovascular Exam Cardiovascular Exam: Tachycardia - GI/Abdominal Exam GI & Abdominal Exam: Soft. absent: Tenderness - Back Exam Back exam: absent: CVA tenderness (L), CVA tenderness (R) - Neurological Exam Neurological exam: Alert, Oriented x3 - Psychiatric Exam Psychiatric exam: Anxious - Skin Additional comments: diffuse vitiligo Results - Vital Signs Recent Vital Signs: Last Vital Signs Temp 98.3 F 09/20/18 14:11 Pulse 109 H 09/20/18 14:11 Resp 20 09/20/18 14:11 BP 104/61 09/20/18 14:11 Pulse Ox 96 09/20/18 14:11 - Labs Result Diagrams: 09/20/18 12:49 09/20/18 12:49 Labs: Laboratory Results - last 24 hr 09/20/18 09/20/18 09/20/18 12:49 12:49 12:49 WBC 10.3 RBC 5.16 Hgb 14.5 Hct 44.3 MCV 85.8 D MCH 28.0 MCHC 32.6 L RDW 14.7 H Plt Count 195 MPV 9.9 Neut % (Auto) 81.9 H Lymph % (Auto) 7.2 L [place] % (Auto) 9.6 Eos % (Auto) 1.0 Baso % (Auto) 0.3 Neut # (Auto) 8.4 H Lymph # (Auto) 0.7 L [place] # (Auto) 1.0 H Eos # (Auto) 0.1 Baso # (Auto) 0.0 Neutrophils % (Manual) 84 H Lymphocytes % (Manual) 5 L Monocytes % (Manual) 10 Eosinophils % (Manual) 1 Platelet Estimate Normal Anisocytosis (manual) Slight pO2 VBG pH VBG pCO2 VBG HCO3 VBG Total CO2 VBG O2 Sat (Calc) VBG Base Excess VBG Potassium Glucose Lactate FiO2 Sodium 132 Potassium 4.5 Chloride 100 Carbon Dioxide 23 Anion Gap 14 BUN 16 Creatinine 1.4 Est GFR ( Amer) > 60 Est GFR (Non-Af Amer) 55 Random Glucose 94 Calcium 8.6 Total Bilirubin 1.2 AST 33 ALT 69 Alkaline Phosphatase 100 Total Protein 7.3 Albumin 3.7 Globulin 3.5 Albumin/Globulin Ratio 1.1 Venous Blood Potassium Influenza Typ A,B (EIA) Grp A Beta Strep Ag Negative 09/20/18 09/20/18 12:49 12:50 WBC RBC Hgb Hct MCV MCH MCHC RDW Plt Count MPV Neut % (Auto) Lymph % (Auto) [place] % (Auto) Eos % (Auto) Baso % (Auto) Neut # (Auto) Lymph # (Auto) [place] # (Auto) Eos # (Auto) Baso # (Auto) Neutrophils % (Manual) Lymphocytes % (Manual) Monocytes % (Manual) Eosinophils % (Manual) Platelet Estimate Anisocytosis (manual) pO2 44 VBG pH 7.47 H VBG pCO2 35 L VBG HCO3 26.2 VBG Total CO2 26.6 VBG O2 Sat (Calc) 86.5 H VBG Base Excess 2.1 H VBG Potassium 4.3 Glucose 95 Lactate 1.1 FiO2 21.0 Sodium 130.0 L Potassium Chloride 100.0 Carbon Dioxide Anion Gap BUN Creatinine Est GFR ( Amer) Est GFR (Non-Af Amer) Random Glucose Calcium Total Bilirubin AST ALT Alkaline Phosphatase Total Protein Albumin Globulin Albumin/Globulin Ratio Venous Blood Potassium 4.3 Influenza Typ A,B (EIA) Pos for influenza a H Grp A Beta Strep Ag Assessment & Plan - Assessment and Plan (Free Text) Assessment: 43 years old male with PMH of severe persistent asthma, gastritis, vitiligo, pancreatitis, NSTEMI and multifocal pneumonia, 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 Plan: Asthma Exacerbation - CXR: no active pulmonary disease. COPD. - SPO2 96% (NC) - Duoneb Q6H - Solumedrol 60 Q8H - Azithromycin 500 mg daily - Rocephin 1gm daily - Florastor 250 BID - Monitor respiratory status Influenza A - Declines Tamiflu d/t previous adverse reaction - Acetaminophen PRN fever - Droplet precautions Anxiety - Psych consult, recommendations appreciated DVT Prophylaxis - Lovenox
[2018-09-20] MEDS ORDERED: methylPREDNISolone 60 MG in Sodium Chloride 0.9% 50 ML IVPB SCH (17:00)
[2018-09-20] MEDS: Saccharomyces Boulardi 250 mg Cap PO SCH (17:08)
[2018-09-20] MEDS ORDERED: cefTRIAXone (Rocephin) 1 gm Inj ONE (17:19)
[2018-09-20] MEDS ORDERED: Azithromycin 500 MG IV IVPB ONE (17:20)
[2018-09-20] MEDS: Azithromycin 500 MG in Sodium Chloride 0.9% 250 ML IVPB SCH (17:21)
--- NOTE | 2018-09-20 18:55 | CARD ---
APPROVED REPORT Date of service: 09/20/2018 EKG Measurement Heart [id number] <Conclusion> Sinus tachycardia Possible Left atrial enlargement Possible Anterior infarct, age undetermined CCR Borderline prolonged QTc No significant change since previous tracing ( NCSPT) Abnormal ECG
[2018-09-20] MEDS: Pantoprazole 40 mg EC Tab PO SCH (22:03)
[2018-09-21] MEDS: Albuterol-Ipratrop 3 mg / 0.5 (3 ml) UD INH SCH ×3 (02:46→13:39)
[2018-09-21] MEDS ORDERED: Albuterol-Ipratrop 3 mg / 0.5 (3 ml) UD INH STA (04:46)
[2018-09-21 05:17] LABS: MEAN CELL VOLUME 87.1 fl (80.0-94.0); MEAN CORPUSCULAR HEMOGLOBIN 28.1 pg (27.0-31.0); MEAN CORPUSCULAR HGB CONC 32.3 g/dL (33.0-37.0); RBC 5.32 Mil/uL (4.40-5.90); RED CELL DISTRIBUTION WIDTH 15.5 % (11.5-14.5); WHITE BLOOD COUNT 5.4 K/uL (4.8-10.8)
[2018-09-21 05:27] LABS: CALCIUM 8.7 mg/dL (8.4-10.2)
[2018-09-21 07:51] VITALS: BP 99/69; PULSE 100; RESP 18; TEMP 97.5; O2SAT 93
[2018-09-21] MEDS ORDERED: Sodium Chloride 0.9% 1,000 ML IV SCH (08:00)
[2018-09-21] MEDS ORDERED: Enoxaparin 40 mg Syringe SC SCH (09:00)
[2018-09-21] MEDS ORDERED: Azithromycin 500 MG in Sodium Chloride 0.9% 250 ML IVPB SCH (09:00)
[2018-09-21] MEDS: Saccharomyces Boulardi 250 mg Cap PO SCH (09:33)
[2018-09-21] MEDS: Pantoprazole 40 mg EC Tab PO SCH (09:35)
[2018-09-21] MEDS: Azithromycin 500 MG in Sodium Chloride 0.9% 250 ML IVPB SCH ×2 (09:37→12:22)
[2018-09-21] MEDS ORDERED: MethylPREDNISolone 40 mg Vial IV SCH (12:45)
--- NOTE | 2018-09-21 13:26 | CP.PCM.CON ---
History of Present Illness - History of Present Illness History of Present Illness: pt is a 43 years old male without previous formal psychiatric treatment or hospitalization,presents to ED c/o fever, chills, malaise, and cough which began 1 day prior. He was admitted last month for pneumonia. pt complained of anxiety requested to be on anxiolytic On evaluation pt reported that he has been on prednisone by PMD for past two years, he noted in past year that he has been having changes in his mood, with edginess , irritability, worry increased anxiety , poor sleep with early insomnia and constant worry , poor concentration, relates this to his current medical problems and difficulty to manage work resulting in financial difficulties pt denied perceptual disturbances, denied suicidal or homicidal ideation,pt r eported he experimented, cannabis, xanax and adderall to help with his symptoms Past Patient History - Infectious Disease Hx of Infectious Diseases: None - Past Medical History & Family History Past Medical History?: Yes - Past Social History Smoking Status: Never Smoked - CARDIAC Hx Cardiac Disorders: Yes Hx Congestive Heart Failure: Yes Hx Hypercholesterolemia: Yes - PULMONARY Hx Respiratory Disorders: Yes Hx Asthma: Yes Hx Chronic Obstructive Pulmonary Disease (COPD): Yes Hx Pneumonia: Yes - NEUROLOGICAL Hx Neurological Disorder: No - HEENT Hx HEENT Problems: No - RENAL Hx Chronic Kidney Disease: No - ENDOCRINE/METABOLIC Hx Endocrine Disorders: No - HEMATOLOGICAL/ONCOLOGICAL Hx Blood Disorders: No Hx Human Immunodeficiency Virus (HIV): No - INTEGUMENTARY Hx Dermatological Problems: No - MUSCULOSKELETAL/RHEUMATOLOGICAL Hx Musculoskeletal Disorders: No Hx Falls: No - GASTROINTESTINAL Hx Gastrointestinal Disorders: Yes Hx Diverticulitis: Yes Hx Gastritis: Yes Hx Pancreatitis: Yes - GENITOURINARY/GYNECOLOGICAL Hx Genitourinary Disorders: No - PSYCHIATRIC Hx Psychophysiologic Disorder: No - SURGICAL HISTORY Hx Surgeries: Yes Other/Comment: I&D LEG ABSCESS - ANESTHESIA Hx Anesthesia: Yes Hx Anesthesia Reactions: No Hx Malignant Hyperthermia: No Meds Home Medications: Home Medication List Medication Instructions Recorded Confirmed Type Albuterol 0.5% [Albuterol 0.5% 2.5 mg IH Q6 PRN #1 neb 09/21/18 Rx Inhal Cassidy (2.5 mg/0.5 ml) UD] Albuterol Sulfate [Ventolin Hfa] 2 puff IH Q4 PRN #1 hfa.aer.ad 09/21/18 Rx Azithromycin 250 mg PO DAILY #4 tablet 09/21/18 Rx Fluticasone/Salmeterol [Airduo 1 puff IH Q12 #1 aer.pow.ba 09/21/18 Rx Respiclick [id number] Mcg] predniSONE [predniSONE Tab] 30 mg PO DAILY #90 tab 09/21/18 Rx Allergies/Adverse Reactions: Allergies Allergy/AdvReac Type Severity Reaction Status Date / Time wheat Allergy PAIN Verified 09/20/18 12:08 oseltamivir [From Tamiflu] AdvReac HEADACHE Verified 09/20/18 20:03 - Medications Medications: Current Medications Acetaminophen (Tylenol 325mg Tab) 650 mg PO Q6 PRN PRN Reason: Pain, Mild (1-3) Albuterol/Ipratropium (Duoneb 3 Mg/0.5 Mg (3 Ml) Ud) 3 ml INH RQ6 DARIEL Last Admin: 09/21/18 08:27 Dose: 3 ml Benzonatate (Tessalon Perles) 100 mg PO Q8 PRN PRN Reason: Cough Last Admin: 09/21/18 05:46 Dose: 100 mg Enoxaparin Sodium (Lovenox) 40 mg SC DAILY DARIEL; Protocol Last Admin: 09/21/18 09:34 Dose: Not Given Ceftriaxone Sodium 1 gm/ (Sodium Chloride) 100 mls @ 100 mls/hr IVPB DAILY DARIEL; Protocol Last Admin: 09/21/18 09:36 Dose: Not Given Azithromycin 500 mg/ Sodium (Chloride) 250 mls @ 250 mls/hr IVPB DAILY DARIEL; Protocol Last Admin: 09/21/18 12:22 Dose: 250 mls/hr Sodium Chloride (Sodium Chloride 0.9%) 1,000 mls @ 100 mls/hr IV .Q10H DARIEL Stop: 09/22/18 07:51 Last Admin: 09/21/18 09:36 Dose: Not Given Methylprednisolone (Solu-Medrol) 40 mg IV Q8 DARIEL Last Admin: 09/21/18 13:12 Dose: 40 mg Pantoprazole Sodium (Protonix Ec Tab) 40 mg PO DAILY DARIEL Last Admin: 09/21/18 09:35 Dose: Not Given Saccharomyces Boulardii (Florastor) 250 mg PO BID DARIEL Last Admin: 09/21/18 09:33 Dose: Not Given Physical Exam - Psychiatric Exam Additional comments: pt seen in bed , good eye contact,mood anxious affect appropriate to thought content , thought form coherent , speech normal, denied suicidal or homicidal ideation, denied perceptual disturbances, alert awake ox3 Results - Vital Signs Recent Vital Signs: Last Vital Signs Temp 97.5 F L 09/21/18 07:51 Pulse 100 H 09/21/18 07:51 Resp 18 09/21/18 07:51 BP 99/69 L 09/21/18 07:51 Pulse Ox 93 L 09/21/18 07:51 - Labs Result Diagrams: 09/21/18 04:25 09/21/18 04:25 Labs: Laboratory Results - last 24 hr 09/20/18 09/20/18 09/20/18 12:49 12:49 12:49 WBC 10.3 RBC 5.16 Hgb 14.5 Hct 44.3 MCV 85.8 D MCH 28.0 MCHC 32.6 L RDW 14.7 H Plt Count 195 MPV 9.9 Neut % (Auto) 81.9 H Lymph % (Auto) 7.2 L [place] % (Auto) 9.6 Eos % (Auto) 1.0 Baso % (Auto) 0.3 Neut # (Auto) 8.4 H Lymph # (Auto) 0.7 L [place] # (Auto) 1.0 H Eos # (Auto) 0.1 Baso # (Auto) 0.0 Neutrophils % (Manual) 84 H Lymphocytes % (Manual) 5 L Monocytes % (Manual) 10 Eosinophils % (Manual) 1 Platelet Estimate Normal Anisocytosis (manual) Slight Sodium 132 Potassium 4.5 Chloride 100 Carbon Dioxide 23 Anion Gap 14 BUN 16 Creatinine 1.4 Est GFR ( Amer) > 60 Est GFR (Non-Af Amer) 55 Random Glucose 94 Calcium 8.6 Total Bilirubin 1.2 AST 33 ALT 69 Alkaline Phosphatase 100 Total Protein 7.3 Albumin 3.7 Globulin 3.5 Albumin/Globulin Ratio 1.1 Influenza Typ A,B (EIA) Grp A Beta Strep Ag Negative 09/20/18 09/21/18 09/21/18 12:49 04:25 04:25 WBC 5.4 RBC 5.32 Hgb 15.0 Hct 46.3 MCV 87.1 MCH 28.1 MCHC 32.3 L RDW 15.5 H Plt Count 196 MPV Neut % (Auto) Lymph % (Auto) [place] % (Auto) Eos % (Auto) Baso % (Auto) Neut # (Auto) Lymph # (Auto) [place] # (Auto) Eos # (Auto) Baso # (Auto) Neutrophils % (Manual) Lymphocytes % (Manual) Monocytes % (Manual) Eosinophils % (Manual) Platelet Estimate Anisocytosis (manual) Sodium 139 Potassium 4.7 Chloride 103 Carbon Dioxide 27 Anion Gap 14 BUN 28 H Creatinine 1.7 H Est GFR ( Amer) 53 Est GFR (Non-Af Amer) 44 Random Glucose 157 H Calcium 8.7 Total Bilirubin AST ALT Alkaline Phosphatase Total Protein Albumin Globulin Albumin/Globulin Ratio Influenza Typ A,B (EIA) Pos for influenza a H Grp A Beta Strep Ag Assessment & Plan - Assessment and Plan (Free Text) Assessment: 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
--- NOTE | 2018-09-21 14:31 | CP.PCM.DIS ---
Provider - Provider Date of Admission: 09/20/18 14:54 Attending physician: Raymundo Pickard MD Consults: 09/20/18 15:56 Psychiatry Consult Stat Comment: Consulting Provider: Tatiana Reinoso Consulting Physician: Tatiana Reinoso Reason for Consult: Anxiety, please evaluate and treat - thanks Time Spent in preparation of Discharge (in minutes): 25 Diagnosis - Discharge Diagnosis (1) Influenza A Status: Acute (2) Anxiety Status: Acute (3) Asthma exacerbation Status: Acute Hospital Course - Lab Results Lab Results: Micro Results 09/20/18 12:49 Blood Blood Culture - Preliminary NO GROWTH AFTER 24 HOURS Most Recent Lab Values WBC 5.4 K/uL (4.8-10.8) 09/21/18 04:25 RBC 5.32 Mil/uL (4.40-5.90) 09/21/18 04:25 Hgb 15.0 g/dL (12.0-18.0) 09/21/18 04:25 Hct 46.3 % (35.0-51.0) 09/21/18 04:25 MCV 87.1 fl (80.0-94.0) 09/21/18 04:25 MCH 28.1 pg (27.0-31.0) 09/21/18 04:25 MCHC 32.3 g/dL (33.0-37.0) L 09/21/18 04:25 RDW 15.5 % (11.5-14.5) H 09/21/18 04:25 Plt Count 196 K/uL (130-400) 09/21/18 04:25 MPV 9.9 fl (7.2-11.7) 09/20/18 12:49 Neut % (Auto) 81.9 % (50.0-75.0) H 09/20/18 12:49 Lymph % (Auto) 7.2 % (20.0-40.0) L 09/20/18 12:49 [place] % (Auto) 9.6 % (0.0-10.0) 09/20/18 12:49 Eos % (Auto) 1.0 % (0.0-4.0) 09/20/18 12:49 Baso % (Auto) 0.3 % (0.0-2.0) 09/20/18 12:49 Neut # (Auto) 8.4 K/uL (1.8-7.0) H 09/20/18 12:49 Lymph # (Auto) 0.7 K/uL (1.0-4.3) L 09/20/18 12:49 [place] # (Auto) 1.0 K/uL (0.0-0.8) H 09/20/18 12:49 Eos # (Auto) 0.1 K/uL (0.0-0.7) 09/20/18 12:49 Baso # (Auto) 0.0 K/uL (0.0-0.2) 09/20/18 12:49 Neutrophils % (Manual) 84 % (42-75) H 09/20/18 12:49 Lymphocytes % (Manual) 5 % (20-50) L 09/20/18 12:49 Monocytes % (Manual) 10 % (0-10) 09/20/18 12:49 Eosinophils % (Manual) 1 % (0-7) 09/20/18 12:49 Platelet Estimate Normal (NORMAL) 09/20/18 12:49 Anisocytosis (manual) Slight 09/20/18 12:49 pO2 44 mm/Hg (30-55) 09/20/18 12:50 VBG pH 7.47 (7.32-7.43) H 09/20/18 12:50 VBG pCO2 35 mmHg (40-60) L 09/20/18 12:50 VBG HCO3 26.2 mmol/L 09/20/18 12:50 VBG Total CO2 26.6 mmol/L (22-28) 09/20/18 12:50 VBG O2 Sat (Calc) 86.5 % (40-65) H 09/20/18 12:50 VBG Base Excess 2.1 mmol/L (0.0-2.0) H 09/20/18 12:50 VBG Potassium 4.3 mmol/L (3.6-5.2) 09/20/18 12:50 Sodium 130.0 mmol/L (132-148) L 09/20/18 12:50 Chloride 100.0 mmol/L (98-107) 09/20/18 12:50 Glucose 95 mg/dL (75-110) 09/20/18 12:50 Lactate 1.1 mmol/L (0.7-2.1) 09/20/18 12:50 FiO2 21.0 % 09/20/18 12:50 Sodium 139 mmol/l (132-148) 09/21/18 04:25 Potassium 4.7 MMOL/L (3.6-5.0) 09/21/18 04:25 Chloride 103 mmol/L (98-107) 09/21/18 04:25 Carbon Dioxide 27 mmol/L (22-30) 09/21/18 04:25 Anion Gap 14 (10-20) 09/21/18 04:25 BUN 28 mg/dl (9-20) H 09/21/18 04:25 Creatinine 1.7 mg/dl (0.8-1.5) H 09/21/18 04:25 Est GFR ( Amer) 53 09/21/18 04:25 Est GFR (Non-Af Amer) 44 09/21/18 04:25 Random Glucose 157 mg/dL (75-110) H 09/21/18 04:25 Calcium 8.7 mg/dL (8.4-10.2) 09/21/18 04:25 Total Bilirubin 1.2 mg/dl (0.2-1.3) 09/20/18 12:49 AST 33 U/L (17-59) 09/20/18 12:49 ALT 69 U/L (21-72) 09/20/18 12:49 Alkaline Phosphatase 100 U/L (38-126) 09/20/18 12:49 Total Protein 7.3 G/DL (6.3-8.2) 09/20/18 12:49 Albumin 3.7 g/dL (3.5-5.0) 09/20/18 12:49 Globulin 3.5 gm/dL (2.2-3.9) 09/20/18 12:49 Albumin/Globulin Ratio 1.1 (1.0-2.1) 09/20/18 12:49 Venous Blood Potassium 4.3 mmol/L (3.6-5.2) 09/20/18 12:50 Influenza Typ A,B (EIA) Pos for influenza a (NEGATIVE) H 09/20/18 12:49 Grp A Beta Strep Ag Negative (NEGATIVE) 09/20/18 12:49 - Hospital Course Hospital Course: 43-year-old male with PMH of severe persistent asthma, gastritis, vitiligo, pancreatitis, NSTEMI and multifocal pneumonia, and eosinophilic colitis (by colonoscopy biopsy) presents to ED c/o fever, chills, malaise, and cough which began 1 day prior; Influenza A positive. Refused Tamiflu due to adverse effects. CXR showed chronic interstitial changes. CBC: WBC 10 K. Febrile (x1), TMax 100.6F. Started on Solumedrol IV, Duonebs, Rocephin, IV Zithromax and Florastor. Psych was consulted for anxiety, recommended starting pt on trazodone 50mg qhs, lexapro 4mg daily, referral to outpatient psychiatric services, pt at current mental status not danger to self or others, pt psychiatrically cleared for discharge izzy medical clearance. Patient's breathing improved through observation, saturating 95% on room air. Remained afebrile. Precautions given for flu. Medically cleared for discharge to home, with recommendations to follow up with [facility] and [facility] within 1 week. Discharge Exam - Head Exam Head Exam: NORMAL INSPECTION - Eye Exam Eye Exam: Normal appearance - ENT Exam ENT Exam: Mucous Membranes Moist - Respiratory Exam Respiratory Exam: Wheezes, NORMAL BREATHING PATTERN - Cardiovascular Exam Cardiovascular Exam: Tachycardia - GI/Abdominal Exam GI & Abdominal Exam: Soft. absent: Tenderness - Back Exam Back exam: absent: CVA tenderness (L), CVA tenderness (R) - Neurological Exam Neurological exam: Alert, Normal Gait, Oriented x3 - Psychiatric Exam Psychiatric exam: Agitated, Anxious - Skin Additional comments: diffuse vitiligo Discharge Plan - Discharge Medications Prescriptions: Albuterol 0.5% [Albuterol 0.5% Inhal Cassidy (2.5 mg/0.5 ml) UD] 2.5 mg IH Q6 PRN #1 neb PRN Reason: Shortness Of Breath Albuterol Sulfate [Ventolin Hfa] 2 puff IH Q4 PRN #1 hfa.aer.ad PRN Reason: Shortness Of Breath Azithromycin 250 mg PO DAILY #4 tablet Escitalopram [Lexapro] 5 mg PO DAILY #30 tab Fluticasone/Salmeterol [Airduo Respiclick 232-14 Mcg] 1 puff IH Q12 #1 aer.pow.ba predniSONE [predniSONE Tab] 30 mg PO DAILY #90 tab traZODone [Desyrel] 50 mg PO HS #30 tab - Follow Up Plan Condition: STABLE Disposition: HOME/ ROUTINE Instructions: Exacerbation of COPD (DC) Referrals: [facility] [Outside]
== END 2018-09-21 15:14 | disposition home or self-care (01) ==
LOC: H.ER 11:52 → H.ERHOLD 14:54 → H.TEL 21:01
PROVIDERS: ADMIT Hospitalist; ATTEND Hospitalist
DX: J44.0 Chronic obstructive pulmonary disease with (acute) lower respiratory infection (principal); J10.00 Influenza due to other identified influenza virus with unspecified type of pneumonia; J44.1 Chronic obstructive pulmonary disease with (acute) exacerbation; J45.51 Severe persistent asthma with (acute) exacerbation; I25.10 Atherosclerotic heart disease of native coronary artery without angina pectoris; E78.00 Pure hypercholesterolemia, unspecified; F06.30 Mood disorder due to known physiological condition, unspecified; F41.9 Anxiety disorder, unspecified; I25.2 Old myocardial infarction; Z87.01 Personal history of pneumonia (recurrent); K29.70 Gastritis, unspecified, without bleeding
CPT/HCPCS: 36415; 71045; 80048; 80053; 82803; 85025; 85027; 87040; 87070; 87430; 87804; 93005; 94640; 96365; 96375; 96376; 99284; G0378; J0456; J0696; J2060; J2920; J2930; J7030

== ENCOUNTER 2018-10-17 13:54 | Emergency (ER) | payer MEDICAID ==
[2018-10-17 13:55] VITALS: BMI 24.0
[2018-10-17] MEDS ORDERED: Albuterol-Ipratrop 3 mg / 0.5 (3 ml) UD ONE ×2 (14:10→14:39)
[2018-10-17 14:15] VITALS: O2SAT 97
[2018-10-17] MEDS ORDERED: Albuterol-Ipratrop 3 mg / 0.5 (3 ml) UD INH STA ×3 (14:27→14:28)
--- NOTE | 2018-10-17 14:35 | ED PDOC ---
HPI: SOB/CHF/COPD Time Seen by Provider: 10/17/18 14:19 Chief Complaint (Nursing): Respiratory Distress Chief Complaint (Provider): Wheezing History Per: Patient History/Exam Limitations: no limitations Onset/Duration Of Symptoms: Hrs (4x hours) Current Symptoms Are (Timing): Still Present Current Respiratory Medications: Prednisone Severity: Moderate Additional Complaint(s): 43 year old male with a past medical history of asthma (previously admitted for asthma) presents to the ED for an evaluation of difficulty breathing and wheezing that started this morning. Patient states that he takes prednisone daily, but has forgotten to take it for the past couple of days. Patient states that earlier today he was driving, when he started to have an asthma attack with wheezing and difficulty breathing. Patient denies having inhalers in his car, prompting ED visit today. Patient denies having chest pain and fevers. PMD: Donovan Duque MD Past Medical History Reviewed: Historical Data, Nursing Documentation, Vital Signs Vital Signs: Last Vital Signs Temp 98.8 F 10/17/18 14:05 Pulse 101 H 10/17/18 14:05 Resp 22 10/17/18 14:13 BP 98/76 L 10/17/18 14:05 Pulse Ox 97 10/17/18 14:13 LARON Report Viewed: Yes - Medical History PMH: Asthma, CAD, CHF, COPD, Diverticulitis, Gastritis, Hypercholesterolemia, Pancreatitis, Pneumonia Denies: HIV, Chronic Kidney Disease Other PMH: colitis - Family History Family History: States: No Known Family Hx - Social History Current smoker - smoking cessation education provided: No Alcohol: Occasional Drugs: Denies - Immunization History Hx Tetanus Toxoid Vaccination: No Hx Influenza Vaccination: No Hx Pneumococcal Vaccination: Yes - Home Medications Home Medications: Ambulatory Orders Medication Instructions Recorded Escitalopram [Lexapro] 5 mg PO DAILY #30 tab 09/21/18 RX: Albuterol 0.5% [Albuterol 0.5% 2.5 mg IH Q6 PRN #1 neb 09/21/18 Inhal Cassidy (2.5 mg/0.5 ml) UD] RX: Albuterol Sulfate [Ventolin 2 puff IH Q4 PRN #1 hfa.aer.ad 09/21/18 Hfa] RX: Azithromycin 250 mg PO DAILY #4 tablet 09/21/18 RX: Fluticasone/Salmeterol [Airduo 1 puff IH Q12 #1 aer.pow.ba 09/21/18 Respiclick 232-14 Mcg] RX: predniSONE [predniSONE Tab] 30 mg PO DAILY #90 tab 09/21/18 RX: traZODone [Desyrel] 50 mg PO HS #30 tab 09/21/18 Albuterol 0.083% [Albuterol 3 ml IH Q4 PRN #50 neb 10/17/18 Sulfate 3 Ml] RX: Albuterol HFA [Ventolin HFA 90 2 puff IH Q4H PRN #1 inh 10/17/18 mcg/actuation (8 g)] predniSONE [Prednisone] 20 mg PO DAILY 10 Days tab 10/17/18 - Allergies Allergies/Adverse Reactions: Allergies Allergy/AdvReac Type Severity Reaction Status Date / Time wheat Allergy PAIN Verified 09/20/18 12:08 oseltamivir [From Tamiflu] AdvReac HEADACHE Verified 09/20/18 20:03 Review of Systems ROS Statement: Except As Marked, All Systems Reviewed And Found Negative Constitutional: Negative for: Fever Cardiovascular: Negative for: Chest Pain Respiratory: Positive for: Shortness of Breath, Wheezing Physical Exam - Reviewed Nursing Documentation Reviewed: Yes Vital Signs Reviewed: Yes - Physical Exam Appears: Positive for: Well (comfortable), Non-toxic, No Acute Distress Head Exam: Positive for: ATRAUMATIC, NORMOCEPHALIC Skin: Positive for: Normal Color, Warm, Dry Eye Exam: Positive for: Normal appearance ENT: Positive for: Normal ENT Inspection Neck: Positive for: Normal Cardiovascular/Chest: Positive for: Regular Rate, Rhythm, Chest Non Tender Respiratory: Positive for: Wheezing (diffuse wheezing bilaterally), Other (mildly tachypnic). Negative for: Respiratory Distress Neurologic/Psych: Positive for: Alert, Oriented (3x) - ECG O2 Sat by Pulse Oximetry: 97 (RA) Pulse Ox Interpretation: Normal Nebulizer Treatments/Peak Flow - Duonebs Number of Bronchodilator Doses given?: 3 - Pre/Post Peak Flow Pre Treatment Peak Flow: 3 Post treatment Peak Flow: 3 - Steroid Treatment Steroid: Oral Medical Decision Making Medical Decision Makin:19 Initial impression: 43 year old male with wheezing and dyspnea. Differential diagnoses include but are not limited to asthma exacerbation. Initial plan: * EKG * duoneb 3 ml INH (3x) * pea flow pre post (3x times) * prednisone tab 60 mg PO * reevaluation 15:00 Patient is being signed out by me to Magalis Lua MD pending reevaluation after medications. Scribe Attestation: Documented by Cande Bello, acting as a scribe for Isrrael Nettles MD. Provider Scribe Attestation: All medical record entries made by the Scribe were at my direction and personally dictated by me. I have reviewed the chart and agree that the record accurately reflects my personal performance of the history, physical exam, medical decision making, and the department course for this patient. I have also personally directed, reviewed, and agree with the discharge instructions and disposition. Disposition - Clinical Impression Clinical Impression: Asthma exacerbation - Patient ED Disposition Is Patient to be Admitted: Transfer of Care Counseled Patient/Family Regarding: Studies Performed, Diagnosis - Disposition Referrals: [facility] [Outside] - 10/18/18 Disposition: Transfer of Care Disposition Time: 15:00 Condition: IMPROVED Additional Instructions: FOLLOW UP WITH CLINIC FOR REEVALUATION Prescriptions: Albuterol 0.083% [Albuterol Sulfate 3 Ml] 3 ml IH Q4 PRN #50 neb PRN Reason: asthma RX: Albuterol HFA [Ventolin HFA 90 mcg/actuation (8 g)] 2 puff IH Q4H PRN #1 inh PRN Reason: ASTHMA predniSONE [Prednisone] 20 mg PO DAILY 10 Days tab Instructions: Asthma, Adult (DC) Forms: [facility] ED School/Work Excuse
--- NOTE | 2018-10-17 15:09 | ED PDOC ---
- ECG O2 Sat by Pulse Oximetry: 97 (RA) Medical Decision Making Medical Decision Makin:00 Patient is being signed out to me by Isrrael Nettles MD pending reassessment. 15:40 Patient is feeling better. Stable for discharge. Scribe Attestation: Documented by Cande Bello, acting as a scribe for Magalis Lua MD. Provider Scribe Attestation: All medical record entries made by the Scribe were at my direction and personally dictated by me. I have reviewed the chart and agree that the record accurately reflects my personal performance of the history, physical exam, medical decision making, and the department course for this patient. I have also personally directed, reviewed, and agree with the discharge instructions and disposition Disposition Counseled Patient/Family Regarding: Studies Performed, Diagnosis, Need For Followup, Rx Given - Clinical Impression Clinical Impression: Asthma exacerbation - POA Present On Arrival: None - Disposition Referrals: [facility] [Outside] - 10/18/18 Disposition: Routine/Home Disposition Time: 15:40 Condition: IMPROVED Additional Instructions: FOLLOW UP WITH CLINIC FOR REEVALUATION Prescriptions: Albuterol 0.083% [Albuterol Sulfate 3 Ml] 3 ml IH Q4 PRN #50 neb PRN Reason: asthma RX: Albuterol HFA [Ventolin HFA 90 mcg/actuation (8 g)] 2 puff IH Q4H PRN #1 inh PRN Reason: ASTHMA predniSONE [Prednisone] 20 mg PO DAILY 10 Days tab Instructions: Asthma, Adult (DC) Forms: [facility] ED School/Work Excuse
[2018-10-17 15:42] VITALS: BP 107/61; PULSE 98; RESP 18; TEMP 98.5
--- NOTE | 2018-10-18 09:13 | CARD ---
APPROVED REPORT Date of service: 10/17/2018 EKG Measurement Heart [id number] <Conclusion> Sinus tachycardia Possible Left atrial enlargement Rightward axis Borderline ECG
== END 2018-10-17 15:53 | disposition home or self-care (01) ==
LOC: H.ER 13:54
DX: J45.901 Unspecified asthma with (acute) exacerbation (principal); J44.9 Chronic obstructive pulmonary disease, unspecified; E78.00 Pure hypercholesterolemia, unspecified; Z79.899 Other long term (current) drug therapy

== ENCOUNTER 2019-01-13 21:24 | Observation (INO) | payer MEDICAID ==
[2019-01-13] MEDS ORDERED: Lidocaine 5% Patch TD STA (22:13)
--- NOTE | 2019-01-13 22:41 | ED PDOC ---
HPI: SOB/CHF/COPD Time Seen by Provider: 01/13/19 21:54 Chief Complaint (Nursing): Shortness Of Breath Chief Complaint (Provider): Cough, shrotness of breath History Per: Patient History/Exam Limitations: no limitations Onset/Duration Of Symptoms: Days Current Symptoms Are (Timing): Still Present Additional Complaint(s): 43yo male, with history of asthma gastritis, pancreatitis, NSTEMI, multifocal pneumonia, comes to ER reporting cough and shortness of breath x 3 days. He states he initially had a productive cough with yellow sputum but had an episode of hemoptysis today. Patient reports right sided pleuritic chest pain, overlying the site of his prior pneumothorax. He reports a sore throat yesterday, which has now resolved. Patient reports chills but denies any fevers; he used his albuterol pump as well as inhaled steroids with no relief of symptoms. Of note, patient has a history of drug abuse, and currently is taking weak anabolic steroids. PMD: Dr. Duque Past Medical History Reviewed: Historical Data, Nursing Documentation, Vital Signs Vital Signs: Last Vital Signs Temp 98.5 F 01/13/19 21:38 Pulse 114 H 01/13/19 21:38 Resp 22 01/13/19 21:38 BP 147/92 H 01/13/19 21:38 Pulse Ox 96 01/13/19 21:38 Primary Care Provider: Donovan Duque - Medical History PMH: Asthma, CAD, CHF, COPD, Diverticulitis, Gastritis, Hypercholesterolemia, Pancreatitis, Pneumonia Denies: HIV, Chronic Kidney Disease - Surgical History Other surgeries: thermoplast x 4 (last 11/22), cardiac cath, hypogastric plexus block - Family History Family History: States: Unknown Family Hx - Social History Current smoker - smoking cessation education provided: No Alcohol: None Drugs: Cannabis - Immunization History Hx Tetanus Toxoid Vaccination: No Hx Influenza Vaccination: No Hx Pneumococcal Vaccination: Yes - Home Medications Home Medications: Ambulatory Orders Medication Instructions Recorded Albuterol Sulfate [Ventolin Hfa] 2 puff IH Q4 PRN #1 hfa.aer.ad 09/21/18 Albuterol HFA [Ventolin HFA 90 2 puff IH Q4H PRN #1 inh 10/17/18 mcg/actuation (8 g)] Alprazolam [Xanax] 0.5 mg PO PRN PRN 01/14/19 Budesonide/Formoterol Fumarate 1 puff INH PRN PRN 01/14/19 [Symbicort 160-4.5 Mcg Inhaler] - Allergies Allergies/Adverse Reactions: Allergies Allergy/AdvReac Type Severity Reaction Status Date / Time pollen extracts Allergy FATIGUE Verified 01/13/19 21:42 wheat Allergy PAIN Verified 01/13/19 21:42 oseltamivir [From Tamiflu] AdvReac HEADACHE Verified 01/13/19 21:42 Review of Systems ROS Statement: Except As Marked, All Systems Reviewed And Found Negative Constitutional: Positive for: Fever ENT: Positive for: Throat Pain (now resolved) Cardiovascular: Positive for: Chest Pain (pleuritic) Respiratory: Positive for: Cough, Hemoptysis Physical Exam - Reviewed Nursing Documentation Reviewed: Yes Vital Signs Reviewed: Yes - Physical Exam Appears: Positive for: Non-toxic, Uncomfortable Head Exam: Positive for: ATRAUMATIC, NORMAL INSPECTION, NORMOCEPHALIC Skin: Positive for: Normal Color Eye Exam: Positive for: Normal appearance, EOMI, PERRL Neck: Positive for: Supple Cardiovascular/Chest: Positive for: Tachycardia (regular rate) Respiratory: Positive for: Rhonchi (faint), Respiratory Distress (mild). Negative for: Accessory Muscle Use, Rales, Wheezing Gastrointestinal/Abdominal: Positive for: Normal Exam, Soft Back: Positive for: Normal Inspection Extremity: Positive for: Normal ROM. Negative for: Pedal Edema Neurological/Psych: Positive for: Awake, Alert, Normal Tone, Oriented (x 3), Mood/Affect (anxious mood and affect). Negative for: Motor/Sensory Deficits - Laboratory Results Result Diagrams: 01/13/19 23:30 01/13/19 23:30 - ECG O2 Sat by Pulse Oximetry: 96 (RA) Medical Decision Making Medical Decision Making: Impression: Hemoptysis, shortness of breath, cough Differential: Pneumonia, bronchitis, pulmonary embolism, CHF, pneumothorax Plan: -- Labs -- EKG -- CXR -- Toradol 15mg IV -- Tylenol 975mg PO -- Lidoderm patch 12am Endorsed to Dr Corona. Pending ER workup, reassessment and final ER disposition Scribe Attestation: Documented by Marisol Palmer acting as a scribe for Magalis Lua MD. Provider Scribe Attestation: All medical record entries made by the Scribe were at my direction and personally dictated by me. I have reviewed the chart and agree that the record accurately reflects my personal performance of the history, physical exam, medical decision making, and the department course for this patient. I have also personally directed, reviewed, and agree with the discharge instructions and disposition. Disposition - Clinical Impression Clinical Impression: Acute kidney injury, COPD exacerbation, Acute bronchitis - Disposition Disposition: Transfer of Care Disposition Time: 00:00 Condition: FAIR
[2019-01-13] MEDS ORDERED: Lidocaine 5% Patch TD ONE (23:23)
[2019-01-13] MEDS ORDERED: Albuterol 0.083% Inhal Sol (2.5 mg/3 mL) UD ONE (23:25)
[2019-01-13 23:48] LABS: BASO # 0.1 K/uL (0.0-0.2); BASO % 0.4 % (0.0-2.0); EOS # 0.1 K/uL (0.0-0.7); EOS % 0.4 % (0.0-4.0); HEMOGLOBIN 13.9 g/dL (12.0-18.0); LYMPH # 0.8 K/uL (1.0-4.3); LYMPH % 5.4 % (20.0-40.0); MEAN CELL VOLUME 82.4 fl (80.0-94.0); MEAN CORPUSCULAR HEMOGLOBIN 26.1 pg (27.0-31.0); MEAN CORPUSCULAR HGB CONC 31.7 g/dL (33.0-37.0); MEAN PLATELET VOLUME 9.4 fl (7.2-11.7); MONO # 0.8 K/uL (0.0-0.8); MONO % 5.5 % (0.0-10.0); NEUT # 12.6 K/uL (1.8-7.0); NEUT % 88.3 % (50.0-75.0); PLATELET COUNT 209 K/uL (130-400); RBC 5.32 Mil/uL (4.40-5.90); RED CELL DISTRIBUTION WIDTH 16.5 % (11.5-14.5); WHITE BLOOD COUNT 14.2 K/uL (4.8-10.8)
[2019-01-13] MEDS ORDERED: Albuterol 0.083% Inhal Sol (2.5 mg/3 mL) UD IH STA (23:48)
[2019-01-13 23:54] LABS: INR 1.1; PROTHROMBIN TIME 12.7 Seconds (9.8-13.1)
[2019-01-14 00:01] LABS: ALB/GLOB RATIO 1.2 (1.0-2.1); ALBUMIN 3.6 g/dL (3.5-5.0); ALT/SGPT 52 U/L (21-72); AST/SGOT 35 U/L (17-59); BLOOD UREA NITROGEN 28 mg/dl (9-20); CALCIUM 8.5 mg/dL (8.4-10.2); GFR NON-AFRICAN AMERICAN 39
[2019-01-14] MEDS ORDERED: Albuterol-Ipratrop 3 mg / 0.5 (3 ml) UD INH STA (00:04)
[2019-01-14] MEDS ORDERED: Sodium Chloride 0.9% 1,000 ML IV STA ×3 (00:06→00:15)
[2019-01-14 00:13] LABS: B-TYPE NATRIURETIC PEPTIDE 3000 pg/ml (0-450)
[2019-01-14] MEDS ORDERED: Albuterol-Ipratrop 3 mg / 0.5 (3 ml) UD ONE (00:20)
--- NOTE | 2019-01-14 00:33 | ED PDOC ---
- Laboratory Results Result Diagrams: 01/13/19 23:30 01/13/19 23:30 Lab Results: PT 12.7 Seconds (9.8-13.1) 01/13/19 23: INR 1.1 01/13/19 23: APTT 31.0 Seconds (25.6-37.1) 01/13/19 23:30 D-Dimer, Quantitative 298 ng/mlDDU (0-230) H 01/13/19 23: Troponin I 0.0310 ng/mL (0.00-0.120) 01/13/19 23:30 NT-Pro-B Natriuret Pep 3000 pg/ml (0-450) H 01/13/19 23:30 Total Bilirubin 1.0 mg/dl (0.2-1.3) 01/13/19 23:30 AST 35 U/L (17-59) 01/13/19 23:30 ALT 52 U/L (21-72) 01/13/19 23: Alkaline Phosphatase 78 U/L (38-126) 01/13/19 23:30 Total Protein 6.5 G/DL (6.3-8.2) 01/13/19 23: Albumin 3.6 g/dL (3.5-5.0) 01/13/19 23: Globulin 2.9 gm/dL (2.2-3.9) 01/13/19 23:30 Albumin/Globulin Ratio 1.2 (1.0-2.1) 01/13/19 23:30 - ECG O2 Sat by Pulse Oximetry: 98 (RA) Pulse Ox Interpretation: Normal Medical Decision Making Medical Decision Making: Time: [address] Lua, pending blood work and reevaluation. Time: 200 Patient is still wheezing but improved from prior. Cannot obtain CTA given Cr bump and low GFR. Patient dehydrated, will need IVF. Will admit patient for COPD exacerbation, bronchitis, and acute kidney injury. Dr. Hobson aware. Scribe Attestation: Documented by Mame Florentino, acting as a scribe for Henok Corona MD. Provider Scribe Attestation: All medical record entries made by the Scribe were at my direction and personally dictated by me. I have reviewed the chart and agree that the record accurately reflects my personal performance of the history, physical exam, medical decision making, and the department course for this patient. I have also personally directed, reviewed, and agree with the discharge instructions and disposition. Disposition - Clinical Impression Clinical Impression: COPD exacerbation, Acute kidney injury, Acute bronchitis - POA Present On Arrival: None - Disposition Disposition: Hospitalized as Observation Patient Disposition Time: 02:00 Condition: FAIR
[2019-01-14 02:15] LABS: NEUTROPHIL 86 % (42-75); TOTAL CELLS COUNTED 100
[2019-01-14 02:16] LABS: LYMPHOCYTE 6 % (20-50); MONOCYTE 8 % (0-10); PLATELET ESTIMATE NORMAL (NORMAL)
[2019-01-14] MEDS ORDERED: cefTRIAXone 2 GM in Sodium Chloride 0.9% 100 ML IVPB STA (02:18)
[2019-01-14 04:08] VITALS: RESP 20
[2019-01-14] MEDS ORDERED: Albuterol HFA 90 mcg/actuation (8 g) IH PRN ×2 (04:18)
[2019-01-14] MEDS ORDERED: Patient's Own Med (Budesonide/Formoterol Fumarate [Symbicort 160-4.5 Mcg Inhaler] 1 PUFF) INH PRN ×2 (04:18→06:11)
--- NOTE | 2019-01-14 04:30 | CP.PCM.HP ---
<Quoc Snow - Last Filed: 01/14/19 05:09> History of Present Illness - History of Present Illness History of Present Illness: 43 yo M with phmx of asthma, pancreatitis, pneumothorax presents with cough and sob for 4-5 days. he reports symptoms are due to asthma exacerbation, with wheezing. Cough productive of clear phelgm. Yesterday, he noted hemoptysis x 4-5 times. Reports one episode of chills. Denies vomiting, headaches, palpitations, fever He has noted soft stools since his last IV abx several months ago. He also reports increased frequency and occasional dysuria. PMD: Dr. Duque famhx: none surg: abcess in R gluteus; bx of lung with pneumothorax soc: denies smoking, social alcohol; history of THC rx: reconciled NKDA Present on Admission - Present on Admission Any Indicators Present on Admission: No History of Uncontrolled Diabetes: No Urinary Catheter: No Review of Systems - EENT Eyes: absent: Change in Vision - Cardiovascular Cardiovascular: absent: Chest Pain - Respiratory Respiratory: Cough, Dyspnea, Wheezing - Gastrointestinal Gastrointestinal: absent: Abdominal Pain - Genitourinary Genitourinary: Change in Urinary Stream, Difficulty Urinating, Dysuria, Urinary Frequency, Voiding Freq/Small Amts. absent: Hematuria Past Patient History - Infectious Disease Hx of Infectious Diseases: None - Past Medical History & Family History Past Medical History?: Yes - Past Social History Smoking Status: Never Smoked Alcohol: Social Drugs: Cannabis Home Situation {Lives}: With Family - CARDIAC Hx Congestive Heart Failure: Yes Hx Hypercholesterolemia: Yes - PULMONARY Hx Asthma: Yes Hx Chronic Obstructive Pulmonary Disease (COPD): Yes Hx Pneumonia: Yes - NEUROLOGICAL Hx Neurological Disorder: No - HEENT Hx HEENT Problems: No - RENAL Hx Chronic Kidney Disease: No - ENDOCRINE/METABOLIC Hx Endocrine Disorders: No - HEMATOLOGICAL/ONCOLOGICAL Hx Human Immunodeficiency Virus (HIV): No - INTEGUMENTARY Hx Dermatological Problems: No - MUSCULOSKELETAL/RHEUMATOLOGICAL Hx Musculoskeletal Disorders: No Hx Falls: No - GASTROINTESTINAL Hx Diverticulitis: Yes Hx Gastritis: Yes Hx Pancreatitis: Yes - GENITOURINARY/GYNECOLOGICAL Hx Genitourinary Disorders: No - PSYCHIATRIC Hx Psychophysiologic Disorder: No Hx Substance Use: No - SURGICAL HISTORY Hx Surgeries: Yes Other/Comment: I&D LEG ABSCESS - ANESTHESIA Hx Anesthesia: Yes Hx Anesthesia Reactions: No Hx Malignant Hyperthermia: No Meds Allergies/Adverse Reactions: Allergies Allergy/AdvReac Type Severity Reaction Status Date / Time pollen extracts Allergy FATIGUE Verified 01/13/19 21:42 wheat Allergy PAIN Verified 01/13/19 21:42 oseltamivir [From Tamiflu] AdvReac HEADACHE Verified 01/13/19 21:42 Physical Exam - Constitutional Appears: No Acute Distress - Eye Exam Eye Exam: EOMI - ENT Exam ENT Exam: Mucous Membranes Moist - Respiratory Exam Respiratory Exam: Decreased Breath Sounds, Wheezes - Cardiovascular Exam Cardiovascular Exam: REGULAR RHYTHM, +S1, +S2 - GI/Abdominal Exam GI & Abdominal Exam: Normal Bowel Sounds, Soft. absent: Tenderness - Neurological Exam Neurological exam: Alert, CN II-XII Intact - Psychiatric Exam Psychiatric exam: Normal Affect, Normal Mood Results - Vital Signs Recent Vital Signs: Last Vital Signs Temp 97.5 F L 01/14/19 04:14 Pulse 101 H 01/14/19 04:14 Resp 20 01/14/19 04:14 BP 122/84 01/14/19 04:14 Pulse Ox 98 01/14/19 04:28 - Labs Result Diagrams: 01/13/19 23:30 01/13/19 23:30 Labs: Laboratory Results - last 24 hr 01/13/19 01/13/19 01/13/19 22:40 23:30 23:30 WBC 14.2 H D RBC 5.32 Hgb 13.9 Hct 43.8 MCV 82.4 D MCH 26.1 L MCHC 31.7 L RDW 16.5 H Plt Count 209 MPV 9.4 Neut % (Auto) 88.3 H Lymph % (Auto) 5.4 L [place] % (Auto) 5.5 Eos % (Auto) 0.4 Baso % (Auto) 0.4 Neut # (Auto) 12.6 H Lymph # (Auto) 0.8 L [place] # (Auto) 0.8 Eos # (Auto) 0.1 Baso # (Auto) 0.1 Neutrophils % (Manual) 86 H Lymphocytes % (Manual) 6 L Monocytes % (Manual) 8 Platelet Estimate Normal RBC Morphology Normal PT INR APTT D-Dimer, Quantitative Sodium 136 Potassium 4.9 Chloride 107 Carbon Dioxide 19 L Anion Gap 15 BUN 28 H Creatinine 1.9 H Est GFR ( Amer) 47 Est GFR (Non-Af Amer) 39 Random Glucose 118 H Calcium 8.5 Total Bilirubin 1.0 AST 35 ALT 52 Alkaline Phosphatase 78 Troponin I 0.0310 NT-Pro-B Natriuret Pep 3000 H Total Protein 6.5 Albumin 3.6 Globulin 2.9 Albumin/Globulin Ratio 1.2 TSH 3rd Generation 0.53 Alcohol, Quantitative < 10 Influenza Typ A,B (EIA) Blood Type O POSITIVE Antibody Screen Negative BBK History Checked Patient has bt 01/13/19 01/13/19 23:30 23:40 WBC RBC Hgb Hct MCV MCH MCHC RDW Plt Count MPV Neut % (Auto) Lymph % (Auto) [place] % (Auto) Eos % (Auto) Baso % (Auto) Neut # (Auto) Lymph # (Auto) [place] # (Auto) Eos # (Auto) Baso # (Auto) Neutrophils % (Manual) Lymphocytes % (Manual) Monocytes % (Manual) Platelet Estimate RBC Morphology PT 12.7 INR 1.1 APTT 31.0 D-Dimer, Quantitative 298 H Sodium Potassium Chloride Carbon Dioxide Anion Gap BUN Creatinine Est GFR ( Amer) Est GFR (Non-Af Amer) Random Glucose Calcium Total Bilirubin AST ALT Alkaline Phosphatase Troponin I NT-Pro-B Natriuret Pep Total Protein Albumin Globulin Albumin/Globulin Ratio TSH 3rd Generation Alcohol, Quantitative Influenza Typ A,B (EIA) Negative for flu a/b Blood Type Antibody Screen BBK History Checked Assessment & Plan - Assessment and Plan (Free Text) Assessment: 43 yo M with phmx of asthma, pancreatitis, pneumothorax presents with cough and sob for 4-5 days. Admitted for COPD and david Plan: Asthma exacerbation wheezing on exam s/p duoneb and solu-medrol in ER c/w duoneb and home meds IVABX Rocephin and azithromycin f/u am labs DAVID BUN 28; Cr: 1.9 S/P IVF NS at 250 x1L c/w D5 1/2 NS at 125 f/u labs Dysuria WBC: 14.2 with increased urinary frequency IVABX Rocephin and azithromycin f/u ua/cx DVT prophylaxis SCDs Case and plan d/w Dr. Joce Snow MD PGY-2 <Yaniv Hobson - Last Filed: 01/14/19 10:26> Results - Vital Signs Recent Vital Signs: Last Vital Signs Temp 97.3 F L 01/14/19 08:34 Pulse 96 H 01/14/19 08:34 Resp 20 01/14/19 08:34 BP 111/75 01/14/19 08:34 Pulse Ox 97 01/14/19 08:34 - Labs Result Diagrams: 01/13/19 23:30 01/13/19 23:30 Labs: Laboratory Results - last 24 hr 01/13/19 01/13/19 01/13/19 22:40 23:30 23:30 WBC 14.2 H D RBC 5.32 Hgb 13.9 Hct 43.8 MCV 82.4 D MCH 26.1 L MCHC 31.7 L RDW 16.5 H Plt Count 209 MPV 9.4 Neut % (Auto) 88.3 H Lymph % (Auto) 5.4 L [place] % (Auto) 5.5 Eos % (Auto) 0.4 Baso % (Auto) 0.4 Neut # (Auto) 12.6 H Lymph # (Auto) 0.8 L [place] # (Auto) 0.8 Eos # (Auto) 0.1 Baso # (Auto) 0.1 Neutrophils % (Manual) 86 H Lymphocytes % (Manual) 6 L Monocytes % (Manual) 8 Platelet Estimate Normal RBC Morphology Normal PT INR APTT D-Dimer, Quantitative Sodium 136 Potassium 4.9 Chloride 107 Carbon Dioxide 19 L Anion Gap 15 BUN 28 H Creatinine 1.9 H Est GFR ( Amer) 47 Est GFR (Non-Af Amer) 39 Random Glucose 118 H Calcium 8.5 Total Bilirubin 1.0 AST 35 ALT 52 Alkaline Phosphatase 78 Troponin I 0.0310 NT-Pro-B Natriuret Pep 3000 H Total Protein 6.5 Albumin 3.6 Globulin 2.9 Albumin/Globulin Ratio 1.2 TSH 3rd Generation 0.53 Urine Color Urine Clarity Urine pH Ur Specific [place] Urine Protein Urine Glucose (UA) Urine Ketones Urine Blood Urine Nitrate Urine Bilirubin Urine Urobilinogen Ur Leukocyte Esterase Urine RBC (Auto) Alcohol, Quantitative < 10 Influenza Typ A,B (EIA) Blood Type O POSITIVE Antibody Screen Negative BBK History Checked Patient has bt 01/13/19 01/13/19 01/14/19 23:30 23:40 04:16 WBC RBC Hgb Hct MCV MCH MCHC RDW Plt Count MPV Neut % (Auto) Lymph % (Auto) [place] % (Auto) Eos % (Auto) Baso % (Auto) Neut # (Auto) Lymph # (Auto) [place] # (Auto) Eos # (Auto) Baso # (Auto) Neutrophils % (Manual) Lymphocytes % (Manual) Monocytes % (Manual) Platelet Estimate RBC Morphology PT 12.7 INR 1.1 APTT 31.0 D-Dimer, Quantitative 298 H Sodium Potassium Chloride Carbon Dioxide Anion Gap BUN Creatinine Est GFR ( Amer) Est GFR (Non-Af Amer) Random Glucose Calcium Total Bilirubin AST ALT Alkaline Phosphatase Troponin I NT-Pro-B Natriuret Pep Total Protein Albumin Globulin Albumin/Globulin Ratio TSH 3rd Generation Urine Color Yellow Urine Clarity Clear Urine pH 6.0 Ur Specific [place] 1.018 Urine Protein 100 Urine Glucose (UA) 50 Urine Ketones Negative Urine Blood Small Urine Nitrate Negative Urine Bilirubin Negative Urine Urobilinogen 0.2-1.0 Ur Leukocyte Esterase Neg Urine RBC (Auto) 3 Alcohol, Quantitative Influenza Typ A,B (EIA) Negative for flu a/b Blood Type Antibody Screen BBK History Checked Attending/Attestation - Attestation I have personally seen and examined this patient.: Yes I have fully participated in the care of the patient.: Yes I have reviewed all pertinent clinical information: Yes Notes (Text): 01/14/19 10:25 I saw, examined snd discussed this patient with Dr Snow. i agree with the assessment and plan outlined This patient is being treated for Asthmatic Crisis and acute kidney injury. Yaniv Hobson MD
[2019-01-14] MEDS: Potassium Ch 20mEq in D5-1/2NS 1,000 ML IV SCH ×4 (04:36→20:15)
[2019-01-14 05:24] LABS: URINE BILIRUBIN NEGATIVE (NEGATIVE); URINE BLOOD SMALL (NEGATIVE); URINE CLARITY CLEAR (Clear); URINE COLOR YELLOW (YELLOW); URINE GLUCOSE (UA) 50 mg/dL (NEGATIVE); URINE LEUKOCYTE ESTERASE NEG Leu/uL (Negative); URINE PROTEIN 100 mg/dL (NEGATIVE); URINE UROBILINOGEN 0.2-1.0 mg/dL (0.2-1.0)
[2019-01-14] MEDS: Albuterol-Ipratrop 3 mg / 0.5 (3 ml) UD INH PRN ×4 (07:23→19:07)
[2019-01-14] MEDS ORDERED: FLUTICASONE PROPION/SALMETEROL 113-14 INH SCH (07:30)
[2019-01-14] MEDS: Azithromycin 500 MG in Sodium Chloride 0.9% 250 ML IVPB SCH (08:44)
[2019-01-14] MEDS: FLUTICASONE PROPION/SALMETEROL 113-14 INH SCH ×3 (08:45→21:25)
--- NOTE | 2019-01-14 08:52 | RAD ---
Date of service: 01/13/2019 HISTORY: sob chest pain COMPARISON: Portable chest 04/27/2018. TECHNIQUE: Chest PA and lateral views FINDINGS: LUNGS: No acute pulmonary disease. Questionable small nodule at the right costophrenic sulcus in the interval versus artifact. Consider follow-up chest CT for added characterization of this finding. PLEURA: No significant pleural effusion identified. No pneumothorax apparent. CARDIOVASCULAR: No aortic atherosclerotic calcification present. Normal cardiac size. No pulmonary vascular congestion. OSSEOUS STRUCTURES: No significant abnormalities. VISUALIZED UPPER ABDOMEN: Normal. OTHER FINDINGS: None. IMPRESSION: No definite acute cardiopulmonary disease. Small nodule is question at the right costophrenic sulcus unlikely in right lower lobe. This may be artifact. Follow-up chest CT is advised without contrast for added characterization of the right base. PA review assigned.
[2019-01-14] MEDS: Saccharomyces Boulardi 250 mg Cap PO SCH ×2 (10:15→16:55)
--- NOTE | 2019-01-14 13:47 | ED PDOC ---
ED Additional Note - Date & Time of Evaluation Date of Evaluation: 01/14/19 Time of Evaluation: 13:45 - Physician Additional Note Physician Additional Note: PA performing radiology callbacks CXR 01/13/19: Impression: No definite acute cardiopulmonary disease. Small nodule is question at the right costophrenic sulcus unlikely in right lower lobe. This may be artifact. Follow-up chest CT is advised without contrast for added characterization of the right base. PA review assigned. Pt admitted. Findings discussed with hospitalist Dr. Hill who will advise patient to have this evaluated as an outpatient.
[2019-01-14 18:53] VITALS: BMI 25.8
[2019-01-15] MEDS: Potassium Ch 20mEq in D5-1/2NS 1,000 ML IV SCH (00:39)
[2019-01-15 07:33] LABS: ALB/GLOB RATIO 1.2 (1.0-2.1); CALCIUM 8.6 mg/dL (8.4-10.2)
[2019-01-15 07:47] VITALS: BP 130/91; PULSE 105; TEMP 97.5; O2SAT 98
[2019-01-15 08:01] LABS: HEMOGLOBIN 14.3 g/dL (12.0-18.0); MEAN CELL VOLUME 84.6 fl (80.0-94.0); MEAN CORPUSCULAR HEMOGLOBIN 26.2 pg (27.0-31.0); MEAN CORPUSCULAR HGB CONC 30.9 g/dL (33.0-37.0); RBC 5.46 Mil/uL (4.40-5.90); RED CELL DISTRIBUTION WIDTH 16.7 % (11.5-14.5); WHITE BLOOD COUNT 21.3 K/uL (4.8-10.8)
[2019-01-15] MEDS: Saccharomyces Boulardi 250 mg Cap PO SCH (08:32)
[2019-01-15] MEDS: Azithromycin 500 MG in Sodium Chloride 0.9% 250 ML IVPB SCH ×2 (08:32→08:35)
[2019-01-15] MEDS: FLUTICASONE PROPION/SALMETEROL 113-14 INH SCH (08:32)
[2019-01-15] MEDS ORDERED: methylPREDNISolone 60 MG in Sodium Chloride 0.9% 50 ML IV SCH (09:00)
--- NOTE | 2019-01-15 11:33 | CP.PCM.DIS ---
<Pj CaseSelene - Last Filed: 01/15/19 11:52> Provider - Provider Date of Admission: 01/14/19 02:24 Attending physician: Yaniv Hobson Time Spent in preparation of Discharge (in minutes): 33 Diagnosis - Discharge Diagnosis (1) Asthma exacerbation Status: Acute (2) Acute bronchitis Status: Acute (3) Acute kidney injury Status: Acute Hospital Course - Lab Results Lab Results: Micro Results 01/14/19 04:16 Urine Random Urine Culture - Final No Growth (<1,000 CFU/ML) 01/13/19 23:20 Blood-Venous Blood Culture - Preliminary NO GROWTH AFTER 24 HOURS 01/13/19 23:40 Blood-Venous Blood Culture - Preliminary NO GROWTH AFTER 24 HOURS Most Recent Lab Values WBC 21.3 K/uL (4.8-10.8) H 01/15/19 06:00 RBC 5.46 Mil/uL (4.40-5.90) 01/15/19 06:00 Hgb 14.3 g/dL (12.0-18.0) 01/15/19 06:00 Hct 46.2 % (35.0-51.0) 01/15/19 06:00 MCV 84.6 fl (80.0-94.0) D 01/15/19 06:00 MCH 26.2 pg (27.0-31.0) L 01/15/19 06:00 MCHC 30.9 g/dL (33.0-37.0) L 01/15/19 06:00 RDW 16.7 % (11.5-14.5) H 01/15/19 06:00 Plt Count 211 K/uL (130-400) 01/15/19 06:00 MPV 9.4 fl (7.2-11.7) 01/13/19 23:30 Neut % (Auto) 88.3 % (50.0-75.0) H 01/13/19 23:30 Lymph % (Auto) 5.4 % (20.0-40.0) L 01/13/19 23:30 [place] % (Auto) 5.5 % (0.0-10.0) 01/13/19 23:30 Eos % (Auto) 0.4 % (0.0-4.0) 01/13/19 23:30 Baso % (Auto) 0.4 % (0.0-2.0) 01/13/19 23:30 Neut # (Auto) 12.6 K/uL (1.8-7.0) H 01/13/19 23:30 Lymph # (Auto) 0.8 K/uL (1.0-4.3) L 01/13/19 23:30 [place] # (Auto) 0.8 K/uL (0.0-0.8) 01/13/19 23:30 Eos # (Auto) 0.1 K/uL (0.0-0.7) 01/13/19 23:30 Baso # (Auto) 0.1 K/uL (0.0-0.2) 01/13/19 23:30 Neutrophils % (Manual) 86 % (42-75) H 01/13/19 23:30 Lymphocytes % (Manual) 6 % (20-50) L 01/13/19 23:30 Monocytes % (Manual) 8 % (0-10) 01/13/19 23:30 Platelet Estimate Normal (NORMAL) 01/13/19 23:30 RBC Morphology Normal (NORMAL) 01/13/19 23:30 PT 12.7 Seconds (9.8-13.1) 01/13/19 23:30 INR 1.1 01/13/19 23:30 APTT 31.0 Seconds (25.6-37.1) 01/13/19 23:30 D-Dimer, Quantitative 298 ng/mlDDU (0-230) H 01/13/19 23:30 Sodium 139 mmol/l (132-148) 01/15/19 06:00 Potassium 5.0 MMOL/L (3.6-5.0) 01/15/19 06:00 Chloride 103 mmol/L (98-107) 01/15/19 06:00 Carbon Dioxide 25 mmol/L (22-30) 01/15/19 06:00 Anion Gap 16 (10-20) 01/15/19 06:00 BUN 27 mg/dl (9-20) H 01/15/19 06:00 Creatinine 1.7 mg/dl (0.8-1.5) H 01/15/19 06:00 Est GFR ( Amer) 53 01/15/19 06:00 Est GFR (Non-Af Amer) 44 01/15/19 06:00 Random Glucose 143 mg/dL (75-110) H 01/15/19 06:00 Calcium 8.6 mg/dL (8.4-10.2) 01/15/19 06:00 Total Bilirubin 0.8 mg/dl (0.2-1.3) 01/15/19 06:00 AST 28 U/L (17-59) 01/15/19 06:00 ALT 60 U/L (21-72) 01/15/19 06:00 Alkaline Phosphatase 85 U/L (38-126) 01/15/19 06:00 Troponin I 0.0310 ng/mL (0.00-0.120) 01/13/19 23:30 NT-Pro-B Natriuret Pep 3000 pg/ml (0-450) H 01/13/19 23:30 Total Protein 7.2 G/DL (6.3-8.2) 01/15/19 06:00 Albumin 4.0 g/dL (3.5-5.0) 01/15/19 06:00 Globulin 3.2 gm/dL (2.2-3.9) 01/15/19 06:00 Albumin/Globulin Ratio 1.2 (1.0-2.1) 01/15/19 06:00 TSH 3rd Generation 0.53 mIU/ML (0.46-4.68) 01/13/19 23:30 Urine Color Yellow (YELLOW) 01/14/19 04:16 Urine Clarity Clear (Clear) 01/14/19 04:16 Urine pH 6.0 (5.0-8.0) 01/14/19 04:16 Ur Specific [place] 1.018 (1.003-1.030) 01/14/19 04:16 Urine Protein 100 mg/dL (NEGATIVE) 01/14/19 04:16 Urine Glucose (UA) 50 mg/dL (NEGATIVE) 01/14/19 04:16 Urine Ketones Negative mg/dL (NEGATIVE) 01/14/19 04:16 Urine Blood Small (NEGATIVE) 01/14/19 04:16 Urine Nitrate Negative (NEGATIVE) 01/14/19 04:16 Urine Bilirubin Negative (NEGATIVE) 01/14/19 04:16 Urine Urobilinogen 0.2-1.0 mg/dL (0.2-1.0) 01/14/19 04:16 Ur Leukocyte Esterase Neg [place]/uL (Negative) 01/14/19 04:16 Urine RBC (Auto) 3 /hpf (0-3) 01/14/19 04:16 Alcohol, Quantitative < 10 mg/dl (0-10) 01/13/19 23:30 Influenza Typ A,B (EIA) Negative for flu a/b (NEGATIVE) 01/13/19 23:40 Blood Type O POSITIVE 01/13/19 22:40 Antibody Screen Negative 01/13/19 22:40 BBK History Checked Patient has bt 01/13/19 22:40 - Hospital Course Hospital Course: 43 Y/O male with PMHx of severe persistent asthma, vitiligo, pancreatitis, pneumothorax, NSTEMI and multifocal pneumonia, and eosinophilic colitis (by colonoscopy biopsy), with CXR with some interstitial 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 During hospital course patient remain stable, reported improvement of the cough, and no hemoptisis during hospitalization. Patient received course of antibitotic with Azithromicin, Rocephin, was treated with IVF for DAVID, with steroids for the asthma for exacerbation. Leukocytoisis assessed to be 2/2 steroid use. Patient today found hemodinamically stable, VS stable, afebrile, clinically stable to be dicharge home. Patient instructed to f/u with PMD within 1 week. instructed to continue taking his regular medications as prescribed. Discharge Exam - Head Exam Head Exam: ATRAUMATIC, NORMAL INSPECTION, NORMOCEPHALIC - Eye Exam Eye Exam: EOMI - ENT Exam ENT Exam: Mucous Membranes Moist - Respiratory Exam Respiratory Exam: Prolonged Expiratory Phase, Rhonchi, NORMAL BREATHING PATTERN - Cardiovascular Exam Cardiovascular Exam: REGULAR RHYTHM - GI/Abdominal Exam GI & Abdominal Exam: Soft. absent: Tenderness - Neurological Exam Neurological exam: Alert, Normal Gait, Oriented x3 - Skin Skin Exam: Normal Color, Warm Discharge Plan - Discharge Medications Prescriptions: Albuterol HFA [Ventolin HFA 90 mcg/actuation (8 g)] 2 puff IH Q4H PRN #1 inh PRN Reason: ASTHMA Alprazolam [Xanax] 0.5 mg PO PRN PRN #30 tablet PRN Reason: Anxiety Azithromycin [Zithromax] 250 mg PO DAILY #4 tab Lactobacillus Acidophilus [Bacid Acidophilus] 1 cap PO BID #8 cap Methylprednisolone [Medrol Dose Pack (21 tabs)] 4 mg PO ASDIR #21 mg - Follow Up Plan Condition: FAIR Disposition: HOME/ ROUTINE Instructions: Exacerbation of COPD (DC) Additional Instructions: Follow up with your PMD within a week ED Precautions given: Go to the ED if you have recurrence of the shortness of breath, chest pain, palpitations, fever, abdominal pain or other new symptom of concern presents. Referrals: Donovan Duque MD [Family Provider] - <Jef Nascimento - Last Filed: 01/15/19 15:10> Provider - Provider Date of Admission: 01/14/19 02:24 Attending physician: Yaniv Hobson [facility] Course - Lab Results Lab Results: Micro Results 01/14/19 04:16 Urine Random Urine Culture - Final No Growth (<1,000 CFU/ML) 01/13/19 23:20 Blood-Venous Blood Culture - Preliminary NO GROWTH AFTER 24 HOURS 01/13/19 23:40 Blood-Venous Blood Culture - Preliminary NO GROWTH AFTER 24 HOURS Most Recent Lab Values WBC 21.3 K/uL (4.8-10.8) H 01/15/19 06:00 RBC 5.46 Mil/uL (4.40-5.90) 01/15/19 06:00 Hgb 14.3 g/dL (12.0-18.0) 01/15/19 06:00 Hct 46.2 % (35.0-51.0) 01/15/19 06:00 MCV 84.6 fl (80.0-94.0) D 01/15/19 06:00 MCH 26.2 pg (27.0-31.0) L 01/15/19 06:00 MCHC 30.9 g/dL (33.0-37.0) L 01/15/19 06:00 RDW 16.7 % (11.5-14.5) H 01/15/19 06:00 Plt Count 211 K/uL (130-400) 01/15/19 06:00 MPV 9.4 fl (7.2-11.7) 01/13/19 23:30 Neut % (Auto) 88.3 % (50.0-75.0) H 01/13/19 23:30 Lymph % (Auto) 5.4 % (20.0-40.0) L 01/13/19 23:30 [place] % (Auto) 5.5 % (0.0-10.0) 01/13/19 23:30 Eos % (Auto) 0.4 % (0.0-4.0) 01/13/19 23:30 Baso % (Auto) 0.4 % (0.0-2.0) 01/13/19 23:30 Neut # (Auto) 12.6 K/uL (1.8-7.0) H 01/13/19 23:30 Lymph # (Auto) 0.8 K/uL (1.0-4.3) L 01/13/19 23:30 [place] # (Auto) 0.8 K/uL (0.0-0.8) 01/13/19 23:30 Eos # (Auto) 0.1 K/uL (0.0-0.7) 01/13/19 23:30 Baso # (Auto) 0.1 K/uL (0.0-0.2) 01/13/19 23:30 Neutrophils % (Manual) 86 % (42-75) H 01/13/19 23:30 Lymphocytes % (Manual) 6 % (20-50) L 01/13/19 23:30 Monocytes % (Manual) 8 % (0-10) 01/13/19 23:30 Platelet Estimate Normal (NORMAL) 01/13/19 23:30 RBC Morphology Normal (NORMAL) 01/13/19 23:30 PT 12.7 Seconds (9.8-13.1) 01/13/19 23:30 INR 1.1 01/13/19 23:30 APTT 31.0 Seconds (25.6-37.1) 01/13/19 23:30 D-Dimer, Quantitative 298 ng/mlDDU (0-230) H 01/13/19 23:30 Sodium 139 mmol/l (132-148) 01/15/19 06:00 Potassium 5.0 MMOL/L (3.6-5.0) 01/15/19 06:00 Chloride 103 mmol/L (98-107) 01/15/19 06:00 Carbon Dioxide 25 mmol/L (22-30) 01/15/19 06:00 Anion Gap 16 (10-20) 01/15/19 06:00 BUN 27 mg/dl (9-20) H 01/15/19 06:00 Creatinine 1.7 mg/dl (0.8-1.5) H 01/15/19 06:00 Est GFR ( Amer) 53 01/15/19 06:00 Est GFR (Non-Af Amer) 44 01/15/19 06:00 Random Glucose 143 mg/dL (75-110) H 01/15/19 06:00 Calcium 8.6 mg/dL (8.4-10.2) 01/15/19 06:00 Total Bilirubin 0.8 mg/dl (0.2-1.3) 01/15/19 06:00 AST 28 U/L (17-59) 01/15/19 06:00 ALT 60 U/L (21-72) 01/15/19 06:00 Alkaline Phosphatase 85 U/L (38-126) 01/15/19 06:00 Troponin I 0.0310 ng/mL (0.00-0.120) 01/13/19 23:30 NT-Pro-B Natriuret Pep 3000 pg/ml (0-450) H 01/13/19 23:30 Total Protein 7.2 G/DL (6.3-8.2) 01/15/19 06:00 Albumin 4.0 g/dL (3.5-5.0) 01/15/19 06:00 Globulin 3.2 gm/dL (2.2-3.9) 01/15/19 06:00 Albumin/Globulin Ratio 1.2 (1.0-2.1) 01/15/19 06:00 TSH 3rd Generation 0.53 mIU/ML (0.46-4.68) 01/13/19 23:30 Urine Color Yellow (YELLOW) 01/14/19 04:16 Urine Clarity Clear (Clear) 01/14/19 04:16 Urine pH 6.0 (5.0-8.0) 01/14/19 04:16 Ur Specific [place] 1.018 (1.003-1.030) 01/14/19 04:16 Urine Protein 100 mg/dL (NEGATIVE) 01/14/19 04:16 Urine Glucose (UA) 50 mg/dL (NEGATIVE) 01/14/19 04:16 Urine Ketones Negative mg/dL (NEGATIVE) 01/14/19 04:16 Urine Blood Small (NEGATIVE) 01/14/19 04:16 Urine Nitrate Negative (NEGATIVE) 01/14/19 04:16 Urine Bilirubin Negative (NEGATIVE) 01/14/19 04:16 Urine Urobilinogen 0.2-1.0 mg/dL (0.2-1.0) 01/14/19 04:16 Ur Leukocyte Esterase Neg [place]/uL (Negative) 01/14/19 04:16 Urine RBC (Auto) 3 /hpf (0-3) 01/14/19 04:16 Alcohol, Quantitative < 10 mg/dl (0-10) 01/13/19 23:30 Influenza Typ A,B (EIA) Negative for flu a/b (NEGATIVE) 01/13/19 23:40 Blood Type O POSITIVE 01/13/19 22:40 Antibody Screen Negative 01/13/19 22:40 BBK History Checked Patient has bt 01/13/19 22:40 Attending/Attestation - Attestation I have personally seen and examined this patient.: Yes I have fully participated in the care of the patient.: Yes I have reviewed all pertinent clinical information, including history, physical exam and plan: Yes Notes (Text): 01/15/19 15:10 Patient seen and examined with resident. Case discussed and agreed with assessment. Patient discharged in stable condition.
== END 2019-01-15 14:00 | disposition home or self-care (01) ==
LOC: H.ER 21:24 → H.ERHOLD 01-14 02:24 → H.MEDSURG1 01-14 04:02
PROVIDERS: ADMIT Internal Medicine; ATTEND Internal Medicine
DX: N17.9 Acute kidney failure, unspecified (principal); T38.0X5A Adverse effect of glucocorticoids and synthetic analogues, initial encounter; Z79.51 Long term (current) use of inhaled steroids; Z87.01 Personal history of pneumonia (recurrent); F41.9 Anxiety disorder, unspecified; K29.70 Gastritis, unspecified, without bleeding; K52.82 Eosinophilic colitis; Z79.899 Other long term (current) drug therapy; R04.2 Hemoptysis; E78.00 Pure hypercholesterolemia, unspecified; E86.0 Dehydration; I25.10 Atherosclerotic heart disease of native coronary artery without angina pectoris; I25.2 Old myocardial infarction; I50.9 Heart failure, unspecified; J20.9 Acute bronchitis, unspecified; J44.0 Chronic obstructive pulmonary disease with (acute) lower respiratory infection; J44.1 Chronic obstructive pulmonary disease with (acute) exacerbation; J45.51 Severe persistent asthma with (acute) exacerbation
CPT/HCPCS: 36415; 71046; 80053; 80320; 81003; 83880; 84443; 84484; 85025; 85027; 85378; 85610; 85730; 86850; 86900; 87040; 87086; 87804; 94150; 94640; 96374; 99281; G0378; J0456; J0696; J2930; J7030

== ENCOUNTER 2019-01-20 09:44 | Observation (INO) | payer MEDICAID ==
[2019-01-20 10:03] VITALS: BMI 28.7
[2019-01-20] MEDS ORDERED: Albuterol 0.083% Inhal Sol (2.5 mg/3 mL) UD INH STA (11:06)
[2019-01-20] MEDS ORDERED: Albuterol-Ipratrop 3 mg / 0.5 (3 ml) UD ONE ×2 (11:17→13:30)
[2019-01-20] MEDS ORDERED: Albuterol 0.083% Inhal Sol (2.5 mg/3 mL) UD ONE (11:18)
--- NOTE | 2019-01-20 12:08 | ED PDOC ---
HPI: SOB/CHF/COPD Time Seen by Provider: 01/20/19 10:37 Chief Complaint (Nursing): Lower Extremity Problem/Injury History Per: Patient Additional Complaint(s): Pt. states he was admitted into the hospital on 01/13/2019 for SOB, dehydration, and a "lung infection." States that the day he got discharged from the hospital while at home he noticed that he developed non-painful swelling to both lower legs which has progressively worsened and has now become painful. Also reports he now feels swelling in his abdomen and his testicles. Further reports SOB is worse when he lies down. Denies hemoptysis, chest pain, fever, abdominal pain, N/V/D, hx of PE or DVT. Past Medical History Reviewed: Historical Data, Nursing Documentation, Vital Signs Vital Signs: Last Vital Signs Temp 98.5 F 01/20/19 10:03 Pulse 104 H 01/20/19 10:03 Resp 17 01/20/19 10:03 BP 120/69 01/20/19 10:03 Pulse Ox 98 01/20/19 10:03 Primary Care Provider: Donovan Duque - Medical History PMH: Anxiety, Asthma, CAD, CHF, COPD, Diverticulitis, Gastritis, Hypercholesterolemia, Pancreatitis, Pneumonia Denies: HIV, Chronic Kidney Disease - Family History Family History: States: No Known Family Hx - Immunization History Hx Tetanus Toxoid Vaccination: No Hx Influenza Vaccination: No Hx Pneumococcal Vaccination: Yes - Home Medications Home Medications: Ambulatory Orders Medication Instructions Recorded Albuterol HFA [Ventolin HFA 90 2 puff IH Q4H PRN #1 inh 01/15/19 mcg/actuation (8 g)] Albuterol 0.083% [Albuterol 0.083% 2.5 mg IH Q6 PRN 01/20/19 Inhal Cassidy (2.5 mg/3 ml) UD] Alprazolam [Xanax] 0.5 mg PO HS PRN 01/20/19 Fluticasone/Salmeterol [Airduo 1 puff IH Q12 01/20/19 Respiclick 232-14 Mcg] Zolpidem [Ambien] 10 mg PO HS PRN 01/20/19 predniSONE [predniSONE Tab] 25 mg PO DAILY 01/20/19 Albuterol/Ipratropium [Duoneb 3 3 ml IH Q4H PRN #1 neb 01/21/19 MG/3 Ml-0.5 MG/3 Ml 3 Ml] Furosemide [Lasix] 20 mg PO DAILY #30 tab 01/21/19 Lisinopril [Zestril] 2.5 mg PO DAILY #30 tab 01/21/19 - Allergies Allergies/Adverse Reactions: Allergies Allergy/AdvReac Type Severity Reaction Status Date / Time pollen extracts Allergy FATIGUE Verified 01/20/19 10:17 wheat Allergy PAIN Verified 01/20/19 10:17 oseltamivir [From Tamiflu] AdvReac HEADACHE Verified 01/20/19 10:17 Review of Systems ROS Statement: Except As Marked, All Systems Reviewed And Found Negative Respiratory: Positive for: Shortness of Breath, Wheezing Musculoskeletal: Positive for: Leg Pain Physical Exam - Physical Exam Appears: Positive for: Well, Non-toxic, No Acute Distress Skin: Positive for: Normal Color, Warm. Negative for: Rash Eye Exam: Positive for: Normal appearance Cardiovascular/Chest: Positive for: Tachycardia. Negative for: Murmur Respiratory: Positive for: Wheezing (b/l expiratory wheezing). Negative for: Accessory Muscle Use, Crackles, Rales, Respiratory Distress Gastrointestinal/Abdominal: Positive for: Normal Exam, Bowel Sounds, Soft. Negative for: Tenderness, Distended Back: Negative for: L CVA Tenderness, R CVA Tenderness Extremity: Positive for: Other (b/l pitting edema of lower extremities; negative Meli's sign). Negative for: Calf Tenderness (b/l) Neurological/Psych: Positive for: Awake, Alert, Oriented (x3) - Laboratory Results Result Diagrams: 01/21/19 04:25 01/21/19 04:25 - ECG ECG: Positive for: Interpreted By Me ECG Rhythm: Positive for: Sinus Tachycardia. Negative for: ST/T Changes Rate: 103 O2 Sat by Pulse Oximetry: 98 - Radiology X-Ray: Interpreted by Me (CXR) - Progress ED Course And Treament: Labs, Albuterol neb x3, CXR, EKG ordered. Pt. placed on surveillance monitor. Pt. feels very anxious that he's in the hospital again. Ativan 1mg PO ordered. 1320 On re-evaluation, pt. reports feeling much calmer. SOB has improved but still present. Duoneb x 3 ordered. BNP elevated. Lasix 40mg IVP ordered. Case d/w Dr. Hill and arrangements made for 23 hr observation. Disposition - Clinical Impression Clinical Impression: CHF exacerbation - Patient ED Disposition Is Patient to be Admitted: Yes - Disposition Disposition Time: 13:20 Condition: FAIR
[2019-01-20 12:51] LABS: URINE BILIRUBIN NEGATIVE (NEGATIVE); URINE BLOOD SMALL (NEGATIVE); URINE CLARITY CLEAR (Clear); URINE COLOR YELLOW (YELLOW); URINE GLUCOSE (UA) NEG (NEGATIVE); URINE LEUKOCYTE ESTERASE NEG Leu/uL (Negative); URINE PROTEIN 30 mg/dL (NEGATIVE); URINE UROBILINOGEN 0.2-1.0 mg/dL (0.2-1.0)
--- NOTE | 2019-01-20 13:18 | RAD ---
Date of service: 01/20/2019 HISTORY: Shortness of breath. COMPARISON: 01/13/2019. FINDINGS: LUNGS: No active pulmonary disease. PLEURA: No significant pleural effusion identified, no pneumothorax apparent. CARDIOVASCULAR: No atherosclerotic calcification present Normal. OSSEOUS STRUCTURES: No significant abnormalities. VISUALIZED UPPER ABDOMEN: Normal. OTHER FINDINGS: None. IMPRESSION: No active disease. No significant interval change compared to the prior examination(s).
[2019-01-20 13:21] LABS: BASO # 0.1 K/uL (0.0-0.2); BASO % 0.6 % (0.0-2.0); EOS # 0.2 K/uL (0.0-0.7); EOS % 1.6 % (0.0-4.0); HEMOGLOBIN 13.7 g/dL (12.0-18.0); LYMPH # 1.1 K/uL (1.0-4.3); LYMPH % 7.5 % (20.0-40.0); MEAN CELL VOLUME 83.7 fl (80.0-94.0); MEAN CORPUSCULAR HEMOGLOBIN 25.6 pg (27.0-31.0); MEAN CORPUSCULAR HGB CONC 30.5 g/dL (33.0-37.0); MEAN PLATELET VOLUME 9.2 fl (7.2-11.7); MONO # 0.9 K/uL (0.0-0.8); MONO % 5.7 % (0.0-10.0); NEUT # 12.9 K/uL (1.8-7.0); NEUT % 84.6 % (50.0-75.0); NRBC % 0.1 % (0.0-0.0); PLATELET COUNT 173 K/uL (130-400); RBC 5.35 Mil/uL (4.40-5.90); RED CELL DISTRIBUTION WIDTH 16.6 % (11.5-14.5); WHITE BLOOD COUNT 15.2 K/uL (4.8-10.8)
[2019-01-20] MEDS ORDERED: Albuterol-Ipratrop 3 mg / 0.5 (3 ml) UD INH STA (13:21)
[2019-01-20 13:45] LABS: B-TYPE NATRIURETIC PEPTIDE 2170 pg/ml (0-450)
--- NOTE | 2019-01-20 13:45 | US ---
Date of service: 01/20/2019 PROCEDURE: Bilateral lower extremity venous duplex Doppler. HISTORY: b/l lower extremity swelling COMPARISON: None available. TECHNIQUE: Bilateral common femoral, superficial femoral, popliteal and posterior tibial veins were evaluated. Flow was assessed with color Doppler, compressibility, assessment of phasic flow and augmentation response. FINDINGS: COMMON FEMORAL VEIN: Right CFV: Unremarkable. Left CFV: Unremarkable. SUPERFICIAL FEMORAL VEIN: Right SFV: Unremarkable. Left SFV: Unremarkable. POPLITEAL VEIN: Right Popliteal: Unremarkable. Left Popliteal: Unremarkable. POSTERIOR TIBIAL VEIN: Right PTV: Unremarkable. Left PTV: Unremarkable. OTHER FINDINGS: None. IMPRESSION: No evidence of deep venous thrombosis.
[2019-01-20 13:46] LABS: ALB/GLOB RATIO 1.3 (1.0-2.1); ALBUMIN 3.7 g/dL (3.5-5.0); ALT/SGPT 108 U/L (21-72); AST/SGOT 57 U/L (17-59); BLOOD UREA NITROGEN 25 mg/dl (9-20); CALCIUM 8.4 mg/dL (8.4-10.2); GFR NON-AFRICAN AMERICAN 51
[2019-01-20 13:57] LABS: ANISOCYTOSIS SLIGHT; EOSINOPHIL 2 % (0-7); LYMPHOCYTE 7 % (20-50); MONOCYTE 7 % (0-10); NEUTROPHIL 84 % (42-75); PLATELET ESTIMATE NORMAL (NORMAL); TOTAL CELLS COUNTED 100
--- NOTE | 2019-01-20 14:43 | CP.PCM.HP ---
<MadanselvinrejiArpan santillanAshley - Last Filed: 01/20/19 16:04> History of Present Illness - History of Present Illness History of Present Illness: 43 yo M with history of CHF (systolic heart failure with reduced ejection fraction), COPD, severe persistent asthma, eosinophilic colitis, vitiligo pre sented to ED with bilateral lower extremity edema. Patient reports he could not sleep last night as he had to keep sitting up as he could not breathe laying down. He states that he noticed worsening bilateral lower extremity swelling since he was last admitted, 01/14/19 where he was dehydrated and given fluids. Reports he has gained 18 lbs in 2 days Reports chronic dysuria. He denies fevers, chills, cough, productive cough, angina, nausea, vomiting, dizziness, abdominal pain, frequency and urgency. ROS: negative except for stated above in HPI PMD: Dr. Duque Heme/onc: Dr. Harish houghx: Father history of asthma and hypercholesterolemia. Mother history of trigeminal neuralgia. PMH: asthma, gastritis, vitiligo, pancreatitis, NSTEMI and multifocal pneumonia, eosinophilic colitis by colonoscopy biopsy PSH: Thermoplasty 4 times procedures, last one on november 2017. Cardic cath november 2017 at [facility], Hypogastric plexus block soc: denies smoking, social alcohol; history of THC rx: reconciled Allergies: NKDA ED course: Hemodynamically stable Lasix 40mg IVP x1 Duoneb x3 Albuterol inh x3 Ativan 1mg x1 Present on Admission - Present on Admission Any Indicators Present on Admission: No Past Patient History - Infectious Disease Hx of Infectious Diseases: None - Past Medical History & Family History Past Medical History?: Yes - Past Social History Smoking Status: Never Smoked - CARDIAC Hx Congestive Heart Failure: Yes Hx Hypercholesterolemia: Yes - PULMONARY Hx Asthma: Yes Hx Chronic Obstructive Pulmonary Disease (COPD): Yes Hx Pneumonia: Yes - NEUROLOGICAL Hx Neurological Disorder: No - HEENT Hx HEENT Problems: No - RENAL Hx Chronic Kidney Disease: No - ENDOCRINE/METABOLIC Hx Endocrine Disorders: No - HEMATOLOGICAL/ONCOLOGICAL Hx Human Immunodeficiency Virus (HIV): No - INTEGUMENTARY Hx Dermatological Problems: No - MUSCULOSKELETAL/RHEUMATOLOGICAL Hx Musculoskeletal Disorders: No Hx Falls: No - GASTROINTESTINAL Hx Diverticulitis: Yes Hx Gastritis: Yes Hx Pancreatitis: Yes - GENITOURINARY/GYNECOLOGICAL Hx Genitourinary Disorders: No - PSYCHIATRIC Hx Anxiety: Yes - SURGICAL HISTORY Hx Surgeries: Yes Other/Comment: I&D LEG ABSCESS - ANESTHESIA Hx Anesthesia: Yes Hx Anesthesia Reactions: No Hx Malignant Hyperthermia: No Meds Allergies/Adverse Reactions: Allergies Allergy/AdvReac Type Severity Reaction Status Date / Time pollen extracts Allergy FATIGUE Verified 01/20/19 10:17 wheat Allergy PAIN Verified 01/20/19 10:17 oseltamivir [From Tamiflu] AdvReac HEADACHE Verified 01/20/19 10:17 Physical Exam - Constitutional Appears: In Acute Distress - Eye Exam Eye Exam: Normal appearance - ENT Exam ENT Exam: Mucous Membranes Moist - Respiratory Exam Respiratory Exam: Clear to Auscultation Bilateral, Wheezes (expiratory wheeze bilaterally upper>lower), NORMAL BREATHING PATTERN. absent: Accessory Muscle Use, Chest Wall Tenderness, Decreased Breath Sounds, Prolonged Expiratory Phase, Rales, Rhonchi, Respiratory Distress - Cardiovascular Exam Cardiovascular Exam: +S1, +S2 - GI/Abdominal Exam GI & Abdominal Exam: Normal Bowel Sounds, Soft. absent: Distended, Firm, Guarding, Rebound, Rigid, Tenderness - Extremities Exam Extremities exam: Positive for: normal capillary refill, pedal edema (+2 pitting edema; edema up to mid-farias), pedal pulses present (+2 dorsalis pedis and tibialis posterior). Negative for: calf tenderness - Back Exam Back exam: NORMAL INSPECTION. absent: CVA tenderness (L), CVA tenderness (R) - Neurological Exam Neurological exam: Alert, Oriented x3 - Skin Skin Exam: Dry, Intact, Warm Additional comments: Vitiligo present all over body Results - Vital Signs Recent Vital Signs: Last Vital Signs Temp 98.5 F 01/20/19 10:03 Pulse 103 H 01/20/19 14:05 Resp 17 01/20/19 10:03 BP 125/78 01/20/19 14:16 Pulse Ox 98 01/20/19 14:05 - Labs Result Diagrams: 01/20/19 13:01 01/20/19 13:01 Labs: Laboratory Results - last 24 hr 01/20/19 01/20/19 01/20/19 12:40 13:01 13:01 WBC 15.2 H RBC 5.35 Hgb 13.7 Hct 44.8 MCV 83.7 MCH 25.6 L MCHC 30.5 L RDW 16.6 H Plt Count 173 MPV 9.2 Neut % (Auto) 84.6 H Lymph % (Auto) 7.5 L [place] % (Auto) 5.7 Eos % (Auto) 1.6 Baso % (Auto) 0.6 Neut # (Auto) 12.9 H Lymph # (Auto) 1.1 [place] # (Auto) 0.9 H Eos # (Auto) 0.2 Baso # (Auto) 0.1 Neutrophils % (Manual) 84 H Lymphocytes % (Manual) 7 L Monocytes % (Manual) 7 Eosinophils % (Manual) 2 Platelet Estimate Normal Anisocytosis (manual) Slight Sodium 136 Potassium 4.8 Chloride 105 Carbon Dioxide 22 Anion Gap 14 BUN 25 H Creatinine 1.5 Est GFR ( Amer) > 60 Est GFR (Non-Af Amer) 51 Random Glucose 102 Calcium 8.4 Total Bilirubin 0.8 AST 57 ALT 108 H D Alkaline Phosphatase 114 Troponin I 0.0250 NT-Pro-B Natriuret Pep 2170 H Total Protein 6.6 Albumin 3.7 Globulin 2.9 Albumin/Globulin Ratio 1.3 Urine Color Yellow Urine Clarity Clear Urine pH 6.0 Ur Specific [place] 1.012 Urine Protein 30 Urine Glucose (UA) Neg Urine Ketones Negative Urine Blood Small Urine Nitrate Negative Urine Bilirubin Negative Urine Urobilinogen 0.2-1.0 Ur Leukocyte Esterase Neg Urine RBC (Auto) 2 Urine Microscopic WBC < 1 Assessment & Plan (1) CHF exacerbation Status: Acute - Assessment and Plan (Free Text) Assessment: 43 yo M with history of CHF (systolic heart failure with reduced ejection fraction- EF 12/2017), COPD, severe persistent asthma, eosinophilic colitis, vitiligo presents with bilateral lower extremity edema. Admitted for CHF exa cerbation- clinically overloaded. Plan: CHF exacerbation - systolic heart failure with reduced ejection fraction admit to telemetry hemodynamically stable O2 saturation: 98% room air expiratory wheezing on exam; no crackles on exam bilateral lower extremity pedal edema (up to midshin; +2) s/p duoneb x6 in ER c/w duoneb ATC and PRN Echo from 12/24/17: EF of 35-40%; Systolic heart failure Repeat ECHO- follow up Troponin x1 negative, follow up troponin COPD exacerbation mild duonebs ATC and prn speaking full sentences; no desaturation- O2 saturation: 98% room air Eosinophilic colitis diagnosed previously by colonoscopy biopsy C/W home medication prednisone DVT prophylaxis Creatinine clearance: 76 mL/min SCDs Lovenox <Ambar Hill - Last Filed: 01/21/19 18:51> Results - Vital Signs Recent Vital Signs: Last Vital Signs Temp 97.8 F 01/21/19 07:52 Pulse 100 H 01/21/19 07:52 Resp 18 01/21/19 07:52 BP 109/77 01/21/19 09:47 Pulse Ox 96 01/21/19 07:52 - Labs Result Diagrams: 01/21/19 04:25 01/21/19 04:25 Labs: Laboratory Results - last 24 hr 01/20/19 01/21/19 01/21/19 18:15 01:10 04:25 WBC 15.5 H RBC 5.18 Hgb 13.4 Hct 42.4 MCV 81.9 MCH 25.9 L MCHC 31.7 L RDW 16.3 H Plt Count 191 Sodium Potassium Chloride Carbon Dioxide Anion Gap BUN Creatinine Est GFR ( Amer) Est GFR (Non-Af Amer) Random Glucose Calcium Troponin I 0.0230 0.0270 01/21/19 04:25 WBC RBC Hgb Hct MCV MCH MCHC RDW Plt Count Sodium 136 Potassium 3.8 Chloride 100 Carbon Dioxide 27 Anion Gap 13 BUN 31 H Creatinine 1.6 H Est GFR ( Amer) 57 Est GFR (Non-Af Amer) 47 Random Glucose 79 Calcium 8.1 L Troponin I Attending/Attestation - Attestation I have personally seen and examined this patient.: Yes I have fully participated in the care of the patient.: Yes I have reviewed all pertinent clinical information: Yes Notes (Text): Agree with findings and plan as above.
[2019-01-20] MEDS ORDERED: Albuterol-Ipratrop 3 mg / 0.5 (3 ml) UD INH PRN (14:45)
[2019-01-20] MEDS ORDERED: Albuterol HFA 90 mcg/actuation (8 g) IH PRN (15:19)
[2019-01-20] MEDS ORDERED: Albuterol 0.083% Inhal Sol (2.5 mg/3 mL) UD IH PRN (15:19)
--- NOTE | 2019-01-20 18:23 | CARD ---
APPROVED REPORT Date of service: 01/20/2019 EKG Measurement Heart [id number] <Conclusion> Sinus tachycardia with occasional premature ventricular complexes Possible Left atrial enlargement Cannot rule out small or absent R waves V1-V3, may be due to lead placement or possible septal infarct age undetermined. Abnormal ECG
[2019-01-20] MEDS: Albuterol-Ipratrop 3 mg / 0.5 (3 ml) UD INH SCH ×3 (20:42→23:50)
[2019-01-20] MEDS: FLUTICASONE PROPION/SALMETEROL 232-14 INHALER IH SCH (21:15)
[2019-01-21] MEDS: Albuterol-Ipratrop 3 mg / 0.5 (3 ml) UD INH SCH ×2 (04:50→08:06)
[2019-01-21 06:24] LABS: HEMOGLOBIN 13.4 g/dL (12.0-18.0); MEAN CELL VOLUME 81.9 fl (80.0-94.0); MEAN CORPUSCULAR HEMOGLOBIN 25.9 pg (27.0-31.0); MEAN CORPUSCULAR HGB CONC 31.7 g/dL (33.0-37.0); RBC 5.18 Mil/uL (4.40-5.90); RED CELL DISTRIBUTION WIDTH 16.3 % (11.5-14.5); WHITE BLOOD COUNT 15.5 K/uL (4.8-10.8)
[2019-01-21 06:28] LABS: CALCIUM 8.1 mg/dL (8.4-10.2)
[2019-01-21 07:53] VITALS: BP 109/77; RESP 18; TEMP 97.8
--- NOTE | 2019-01-21 08:13 | CP.PCM.DIS ---
<Ashley Castro - Last Filed: 01/21/19 12:41> Provider - Provider Date of Admission: 01/20/19 14:04 Attending physician: Ambar Hill DO Primary care physician: Dr. Roper Time Spent in preparation of Discharge (in minutes): 30 Diagnosis - Discharge Diagnosis (1) CHF exacerbation Status: Acute Comment: Lasix 80mg on day of admission. D/c on Lasix 20mg daily and lisinopril daily. Echo from 12/24/17: EF of 35-40%; Systolic heart failure. Repeat ECHO as outpatient. Troponin negative Hospital Course - Lab Results Lab Results: Most Recent Lab Values WBC 15.5 K/uL (4.8-10.8) H 01/21/19 04:25 RBC 5.18 Mil/uL (4.40-5.90) 01/21/19 04:25 Hgb 13.4 g/dL (12.0-18.0) 01/21/19 04:25 Hct 42.4 % (35.0-51.0) 01/21/19 04:25 MCV 81.9 fl (80.0-94.0) 01/21/19 04:25 MCH 25.9 pg (27.0-31.0) L 01/21/19 04:25 MCHC 31.7 g/dL (33.0-37.0) L 01/21/19 04:25 RDW 16.3 % (11.5-14.5) H 01/21/19 04:25 Plt Count 191 K/uL (130-400) 01/21/19 04:25 MPV 9.2 fl (7.2-11.7) 01/20/19 13:01 Neut % (Auto) 84.6 % (50.0-75.0) H 01/20/19 13:01 Lymph % (Auto) 7.5 % (20.0-40.0) L 01/20/19 13:01 [place] % (Auto) 5.7 % (0.0-10.0) 01/20/19 13:01 Eos % (Auto) 1.6 % (0.0-4.0) 01/20/19 13:01 Baso % (Auto) 0.6 % (0.0-2.0) 01/20/19 13:01 Neut # (Auto) 12.9 K/uL (1.8-7.0) H 01/20/19 13:01 Lymph # (Auto) 1.1 K/uL (1.0-4.3) 01/20/19 13:01 [place] # (Auto) 0.9 K/uL (0.0-0.8) H 01/20/19 13:01 Eos # (Auto) 0.2 K/uL (0.0-0.7) 01/20/19 13:01 Baso # (Auto) 0.1 K/uL (0.0-0.2) 01/20/19 13:01 Neutrophils % (Manual) 84 % (42-75) H 01/20/19 13:01 Lymphocytes % (Manual) 7 % (20-50) L 01/20/19 13:01 Monocytes % (Manual) 7 % (0-10) 01/20/19 13:01 Eosinophils % (Manual) 2 % (0-7) 01/20/19 13:01 Platelet Estimate Normal (NORMAL) 01/20/19 13:01 Anisocytosis (manual) Slight 01/20/19 13:01 Sodium 136 mmol/l (132-148) 01/21/19 04:25 Potassium 3.8 MMOL/L (3.6-5.0) 01/21/19 04:25 Chloride 100 mmol/L (98-107) 01/21/19 04:25 Carbon Dioxide 27 mmol/L (22-30) 01/21/19 04:25 Anion Gap 13 (10-20) 01/21/19 04:25 BUN 31 mg/dl (9-20) H 01/21/19 04:25 Creatinine 1.6 mg/dl (0.8-1.5) H 01/21/19 04:25 Est GFR ( Amer) 57 01/21/19 04:25 Est GFR (Non-Af Amer) 47 01/21/19 04:25 Random Glucose 79 mg/dL (75-110) 01/21/19 04:25 Calcium 8.1 mg/dL (8.4-10.2) L 01/21/19 04:25 Total Bilirubin 0.8 mg/dl (0.2-1.3) 01/20/19 13:01 AST 57 U/L (17-59) 01/20/19 13:01 ALT 108 U/L (21-72) H D 01/20/19 13:01 Alkaline Phosphatase 114 U/L (38-126) 01/20/19 13:01 Troponin I 0.0270 ng/mL (0.00-0.120) 01/21/19 01:10 NT-Pro-B Natriuret Pep 2170 pg/ml (0-450) H 01/20/19 13:01 Total Protein 6.6 G/DL (6.3-8.2) 01/20/19 13:01 Albumin 3.7 g/dL (3.5-5.0) 01/20/19 13:01 Globulin 2.9 gm/dL (2.2-3.9) 01/20/19 13:01 Albumin/Globulin Ratio 1.3 (1.0-2.1) 01/20/19 13:01 Urine Color Yellow (YELLOW) 01/20/19 12:40 Urine Clarity Clear (Clear) 01/20/19 12:40 Urine pH 6.0 (5.0-8.0) 01/20/19 12:40 Ur Specific [place] 1.012 (1.003-1.030) 01/20/19 12:40 Urine Protein 30 mg/dL (NEGATIVE) 01/20/19 12:40 Urine Glucose (UA) Neg mg/dL (NEGATIVE) 01/20/19 12:40 Urine Ketones Negative mg/dL (NEGATIVE) 01/20/19 12:40 Urine Blood Small (NEGATIVE) 01/20/19 12:40 Urine Nitrate Negative (NEGATIVE) 01/20/19 12:40 Urine Bilirubin Negative (NEGATIVE) 01/20/19 12:40 Urine Urobilinogen 0.2-1.0 mg/dL (0.2-1.0) 01/20/19 12:40 Ur Leukocyte Esterase Neg [place]/uL (Negative) 01/20/19 12:40 Urine RBC (Auto) 2 /hpf (0-3) 01/20/19 12:40 Urine Microscopic WBC < 1 /hpf (0-5) 01/20/19 12:40 - Hospital Course Hospital Course: 43 yo M with history of CHF (systolic heart failure with reduced ejection fraction- EF 12/2017), COPD, severe persistent asthma, eosinophilic colitis, vitiligo presented with bilateral lower extremity edema admitted for CHF exacerbation- clinically overloaded. Patient was given Lasix and clinically improved. Was given Duonebs ATC in the ER x3 and albuterol inh x3. Admitted to telemetry, no acute events and no events on the telemonitor. Troponins negative. Echo from 12/24/17: EF of 35-40%; Systolic heart failure. Patient to be discharged with prescription for Lisinopril and Lasix. Follow up with PMD in 1 week. Discharge Exam - Eye Exam Eye Exam: Normal appearance - Respiratory Exam Respiratory Exam: Clear to PA & Lateral, Wheezes (expiratory wheezing), UNREMARKABLE. absent: Accessory Muscle Use, Chest Wall Tenderness, Decreased Breath Sounds, Prolonged Expiratory Phase, Rales, Rhonchi, Respiratory Distress, Stridor - Cardiovascular Exam Cardiovascular Exam: REGULAR RHYTHM, +S1, +S2 - GI/Abdominal Exam GI & Abdominal Exam: Normal Bowel Sounds, Soft, Unremarkable. absent: Diminished Bowel Sounds, Distended, Firm, Guarding, Hernia, Rebound, Rigid, Tenderness - Extremities Exam Extremities exam: pedal pulses present Additional comments: Bilateral feet swollen +1. Swelling of legs has now resolved. - Neurological Exam Neurological exam: Alert, Oriented x3 - Skin Skin Exam: Dry, Intact, Normal Color, Warm Discharge Plan - Discharge Medications Prescriptions: Albuterol/Ipratropium [Duoneb 3 MG/3 Ml-0.5 MG/3 Ml 3 Ml] 3 ml IH Q4H PRN #1 neb PRN Reason: Shortness Of Breath Furosemide [Lasix] 20 mg PO DAILY #30 tab Lisinopril [Zestril] 2.5 mg PO DAILY #30 tab - Follow Up Plan Condition: GOOD Disposition: HOME/ ROUTINE Patient education suggested?: Yes Instructions: Heart Failure, Adult (DC) Additional Instructions: follow up appt with on thursday01/26/19 10:15am Referrals: Donovan Duque MD [Staff Provider] - <Ambar Hill - Last Filed: 01/21/19 18:49> Provider - Provider Date of Admission: 01/20/19 14:04 Attending physician: Ambar Hill DO Hospital Course - Lab Results Lab Results: Most Recent Lab Values WBC 15.5 K/uL (4.8-10.8) H 01/21/19 04:25 RBC 5.18 Mil/uL (4.40-5.90) 01/21/19 04:25 Hgb 13.4 g/dL (12.0-18.0) 01/21/19 04:25 Hct 42.4 % (35.0-51.0) 01/21/19 04:25 MCV 81.9 fl (80.0-94.0) 01/21/19 04:25 MCH 25.9 pg (27.0-31.0) L 01/21/19 04:25 MCHC 31.7 g/dL (33.0-37.0) L 01/21/19 04:25 RDW 16.3 % (11.5-14.5) H 01/21/19 04:25 Plt Count 191 K/uL (130-400) 01/21/19 04:25 MPV 9.2 fl (7.2-11.7) 01/20/19 13:01 Neut % (Auto) 84.6 % (50.0-75.0) H 01/20/19 13:01 Lymph % (Auto) 7.5 % (20.0-40.0) L 01/20/19 13:01 [place] % (Auto) 5.7 % (0.0-10.0) 01/20/19 13:01 Eos % (Auto) 1.6 % (0.0-4.0) 01/20/19 13:01 Baso % (Auto) 0.6 % (0.0-2.0) 01/20/19 13:01 Neut # (Auto) 12.9 K/uL (1.8-7.0) H 01/20/19 13:01 Lymph # (Auto) 1.1 K/uL (1.0-4.3) 01/20/19 13:01 [place] # (Auto) 0.9 K/uL (0.0-0.8) H 01/20/19 13:01 Eos # (Auto) 0.2 K/uL (0.0-0.7) 01/20/19 13:01 Baso # (Auto) 0.1 K/uL (0.0-0.2) 01/20/19 13:01 Neutrophils % (Manual) 84 % (42-75) H 01/20/19 13:01 Lymphocytes % (Manual) 7 % (20-50) L 01/20/19 13:01 Monocytes % (Manual) 7 % (0-10) 01/20/19 13:01 Eosinophils % (Manual) 2 % (0-7) 01/20/19 13:01 Platelet Estimate Normal (NORMAL) 01/20/19 13:01 Anisocytosis (manual) Slight 01/20/19 13:01 Sodium 136 mmol/l (132-148) 01/21/19 04:25 Potassium 3.8 MMOL/L (3.6-5.0) 01/21/19 04:25 Chloride 100 mmol/L (98-107) 01/21/19 04:25 Carbon Dioxide 27 mmol/L (22-30) 01/21/19 04:25 Anion Gap 13 (10-20) 01/21/19 04:25 BUN 31 mg/dl (9-20) H 01/21/19 04:25 Creatinine 1.6 mg/dl (0.8-1.5) H 01/21/19 04:25 Est GFR ( Amer) 57 01/21/19 04:25 Est GFR (Non-Af Amer) 47 01/21/19 04:25 Random Glucose 79 mg/dL (75-110) 01/21/19 04:25 Calcium 8.1 mg/dL (8.4-10.2) L 01/21/19 04:25 Total Bilirubin 0.8 mg/dl (0.2-1.3) 01/20/19 13:01 AST 57 U/L (17-59) 01/20/19 13:01 ALT 108 U/L (21-72) H D 01/20/19 13:01 Alkaline Phosphatase 114 U/L (38-126) 01/20/19 13:01 Troponin I 0.0270 ng/mL (0.00-0.120) 01/21/19 01:10 NT-Pro-B Natriuret Pep 2170 pg/ml (0-450) H 01/20/19 13:01 Total Protein 6.6 G/DL (6.3-8.2) 01/20/19 13:01 Albumin 3.7 g/dL (3.5-5.0) 01/20/19 13:01 Globulin 2.9 gm/dL (2.2-3.9) 01/20/19 13:01 Albumin/Globulin Ratio 1.3 (1.0-2.1) 01/20/19 13:01 Urine Color Yellow (YELLOW) 01/20/19 12:40 Urine Clarity Clear (Clear) 01/20/19 12:40 Urine pH 6.0 (5.0-8.0) 01/20/19 12:40 Ur Specific [place] 1.012 (1.003-1.030) 01/20/19 12:40 Urine Protein 30 mg/dL (NEGATIVE) 01/20/19 12:40 Urine Glucose (UA) Neg mg/dL (NEGATIVE) 01/20/19 12:40 Urine Ketones Negative mg/dL (NEGATIVE) 01/20/19 12:40 Urine Blood Small (NEGATIVE) 01/20/19 12:40 Urine Nitrate Negative (NEGATIVE) 01/20/19 12:40 Urine Bilirubin Negative (NEGATIVE) 01/20/19 12:40 Urine Urobilinogen 0.2-1.0 mg/dL (0.2-1.0) 01/20/19 12:40 Ur Leukocyte Esterase Neg [place]/uL (Negative) 01/20/19 12:40 Urine RBC (Auto) 2 /hpf (0-3) 01/20/19 12:40 Urine Microscopic WBC < 1 /hpf (0-5) 01/20/19 12:40 Attending/Attestation - Attestation I have personally seen and examined this patient.: Yes I have fully participated in the care of the patient.: Yes I have reviewed all pertinent clinical information, including history, physical exam and plan: Yes Notes (Text): Agree with findings and plan as above.
[2019-01-21] MEDS ORDERED: Enoxaparin 40 mg Syringe SC SCH (09:00)
[2019-01-21] MEDS: FLUTICASONE PROPION/SALMETEROL 232-14 INHALER IH SCH (09:52)
[2019-01-23 00:20] VITALS: PULSE 103; O2SAT 98
== END 2019-01-21 10:30 | disposition home or self-care (01) ==
LOC: H.ER 09:44 → H.ERHOLD 14:04 → H.TEL 17:08
PROVIDERS: ADMIT Student in an Organized Health Care Education/Training Program; ATTEND Student in an Organized Health Care Education/Training Program
DX: I50.21 Acute systolic (congestive) heart failure (principal); E78.00 Pure hypercholesterolemia, unspecified; I25.10 Atherosclerotic heart disease of native coronary artery without angina pectoris; J45.50 Severe persistent asthma, uncomplicated; L80 Vitiligo; F41.9 Anxiety disorder, unspecified; K52.82 Eosinophilic colitis; J44.1 Chronic obstructive pulmonary disease with (acute) exacerbation; K29.70 Gastritis, unspecified, without bleeding
CPT/HCPCS: 36415; 71045; 80048; 80053; 81003; 83880; 84484; 85025; 85027; 93005; 93970; 94640; 96374; 96376; 99285; G0378; J1940